=== PATIENT | female | born 1935 | race African-American/Black ===

== ENCOUNTER → 2017-09-29 | Outpatient (CLI) | payer MEDICARE, OTHER | END | disposition home or self-care (01) | LOC: ECHO 08:49 | DX: I08.3 Combined rheumatic disorders of mitral, aortic and tricuspid valves (principal); I27.20 Pulmonary hypertension, unspecified; I10 Essential (primary) hypertension; E78.00 Pure hypercholesterolemia, unspecified; Z87.891 Personal history of nicotine dependence | CPT/HCPCS: 93306 ==

== ENCOUNTER → 2018-03-13 | Outpatient (CLI) | payer MEDICARE, OTHER ==
[2015-10-14 17:07] VITALS: BP 159/80
[~2018-03-13] MED LIST: AMLO10TA8 PO; ATOR20TA58 PO; FEBU40TA PO; METO-269 PO; REGADENOSON 0.4 MG/5 ML DISP.SYRIN. IV ONE; TOLT4CAP PO; VALS320T2 PO; WARF4TAB68 PO
--- NOTE | 2018-03-13 12:29 | RAD ---
MR#: [id number] Date of Study: 03/13/2018 Ordering Physician: FALGUNI ZHAO, Referring Physician: DOE ARRINGTON Tech: FRANK Palomo APPROVED REPORT Test Type: Pharmacological Stress Nurse/Tech: Urvashi Blackmon R.N. Test Indications: MILLER Cardiac History: htn, afib, Medications: see ehr, coumadin Medical History: see ehr Resting ECG: afib ST depression in mult leads with flipped TS Resting Heart Rate: 65 bpm Resting Blood Pressure: 149/85mmHg Pretest Chest Pain: No chest pain Nurse/Tech Notes lungs cta, heart tones irregular Consent: The procedure was explained to the patient in lay terms. Informed consent was witnessed. Munir eout was entered into [employer]. History and Stress Test performed by SCOTT Coleman, GEORGE (R) (N) Pharm. Details Pharmacologic stress testing was performed using 0.4mg per 5ml of regadenoson given intravenously ove r 7-10 seconds. Stress Symptoms No chest pain or symptoms. POST EXERCISE Reason for Termination: Infusion complete Target HR: No Max HR: 104 bpm Max Blood Pressure: 137/71mmHg Chest Pain: No. Arrhythmia: No. ST Change: No. INTERPRETATION Stress EKG Conclusion: Baseline EKG showed atrial fibrillation with inferolateral ST depressions and T wave inversions. Non diagnostic changes at peak stress. Imaging Protocol IMAGE PROTOCOL: Rest Tc-99m/stress Tc-99m 1 day Rest: Stress: Viability: Radiopharm.Tc99m FmszfmdsyIh41w Sestamibi Dose11.9mCi 33.3mCi Duration 15min. 13min. Img Date 03/13/2018 03/13/2018 Inj-Img [id number]. 60min. Rest Admin Site:IV - Right WristAdministrator:FRANK Palomo Stress Admin Site: IV - Right WristAdministrator: SCOTT Coleman, TERRIET (R)(N) STRESS DATA End Diast. Vol.75.0mlLVEDV index BSA38.0ml End Syst. Vol.22.0mlLVESV index BSA11.0ml Myocardial Pzht841.0gEject. Rukkyctd56.0% Stress Scores Regional WT2.00Summed WT12.00 Regional WM0.00Summed WM0.00 LV Perfusion Stress scintigraphic images technically difficult due to motion artifact but there appeared to be no significant fixed or reversible defects. Wall Motion Normal left ventricular systolic function with ejection fraction calculated at 58%. LV Perf. Quant 17 Seg. SSS8.00 17 Seg. SRS0.00 17 Seg. SDS8.00 Stress Defect Extent (% LAD)3.80Rest Defect Extent (% LAD)0.00Rev. Defect Extent (% LAD)3.80 Stress Defect Extent (% LCX) 47.50Rest Defect Extent (% LCX)11.30Rev. Defect Extent (% LCX)45.00 Stress Defect Extent (% RCA)3.30Rest Defect Extent (% RCA)0.00Rev. Defect Extent (% RCA)1.10 Stress Defect Extent (% CAMILO)17.20Rest Defect Extent (% CAMILO)2.00Rev. Defect Extent (% CAMILO)15.20 Conclusion 1. Regadenoson cardioisotope stress test was technically difficult due to motion artifact but did not show any obvious evidence of ischemia or infarct. 2. Normal left ventricular systolic function with ejection fraction calculated at 58%. 3. Low risk for cardiac events. Signed by : Falguni Zhao, Electronically Approved : 03/13/2018 12:27:45
--- NOTE | 2018-03-14 11:57 | RAD ---
MR#: [id number] Date of Study: 03/13/2018 Ordering Physician: FALGUNI ZHAO, Referring Physician: FALGUNI ZHAO, Tech: Dawit Yang MBA, RDMS, RVT, RDCS, RTR APPROVED REPORT Patient Location : OUT-PATIENT Indications Lower Extremity Edema : Bilateral Findings Grayscale images of the bilateral saphenofemoral junctions and limited evaluation of the greater and lesser saphenous veins does not reveal any obvious evidence of thrombus. The right great saphenous vein measures 4.6 mm and does not show any evidence of reflux. The left gre at saphenous vein measures 5.3 mm and does not show any evidence of reflux. The bilateral lesser saphenous veins do not show any obvious evidence of reflux. Critical Notification Critical Value: No <Conclusion> 1. No reflux noted in the greater or lesser saphenous veins. Signed by : Eric Adam, Electronically Approved : 03/14/2018 11:56:01
== END | disposition home or self-care (01) ==
LOC: NM 08:11
PROVIDERS: ATTEND Internal Medicine Cardiovascular Disease
DX: I48.91 Unspecified atrial fibrillation (principal); R60.0 Localized edema; I10 Essential (primary) hypertension; Z79.01 Long term (current) use of anticoagulants; Z87.891 Personal history of nicotine dependence
CPT/HCPCS: 78452; 93017; 93970; 96374; J2785

== ENCOUNTER 2018-12-16 08:44 | Inpatient (IN) | payer MEDICARE, OTHER ==
[~2018-12-16] VITALS: Ht 162.6 cm; Wt 105.0 kg
[~2018-12-16 08:44] MED LIST changes: -REGADENOSON 0.4 MG/5 ML DISP.SYRIN. IV ONE
[2018-12-16] MEDS ORDERED: ONDANSETRON PF 4 MG/2 ML VIAL. IM ONE (09:30)
[2018-12-16 09:44] LABS: BASO % 1 % (0-3); EOS % 1 % (0-3); HEMATOCRIT 39.2 % (36.0-47.0); HEMOGLOBIN 12.9 g/dL (12.0-15.5); LYMPH # 1.1 x10^3/uL (1.0-4.8); LYMPH % 25 % (24-48); MEAN CORPUSCULAR HEMOGLOBIN 31 pg (25-35); MEAN CORPUSCULAR HGB CONC 33 g/dL (31-37); MEAN CORPUSCULAR VOLUME 93 fL (79-100); MONO # 0.3 x10^3/uL (0.0-1.1); MONO % 7 % (0-9); NEUT % 67 % (31-73); PLATELET COUNT 155 x10^3/uL (140-400); RED BLOOD COUNT 4.22 x10^6/uL (3.50-5.40); RED CELL DISTRIBUTION WIDTH 14.4 % (11.5-14.5); WHITE BLOOD COUNT 4.5 x10^3/uL (4.0-11.0)
[2018-12-16] MEDS ORDERED: fentaNYL PF VIAL 100 MCG/2 ML VIAL IVP ONE ×2 (09:45→15:15)
[2018-12-16 09:55] LABS: CALCIUM 9.9 mg/dL (8.5-10.1); CREATININE 1.7 mg/dL (0.6-1.0); GFR 34.9; POTASSIUM 3.6 mmol/L (3.5-5.1)
[2018-12-16 10:00] LABS: ALBUMIN 3.6 g/dL (3.4-5.0); ALBUMIN/GLOBULIN RATIO 0.7 (1.0-1.7); TOTAL BILIRUBIN 0.7 mg/dL (0.2-1.0); TOTAL PROTEIN 8.6 g/dL (6.4-8.2)
[2018-12-16] MEDS ORDERED: ONDANSETRON PF 4 MG/2 ML VIAL. IVP ONE (10:00)
[2018-12-16] MEDS ORDERED: IV NORMAL SALINE 1000ML BAG 1,000 ML IV ONE (10:15)
--- NOTE | 2018-12-16 10:41 | RAD ---
Exam performed: Right upper quadrant ultrasound. HISTORY: Abdominal pain. DATE OF SERVICE: 12/16/2018. COMPARISON: None available TECHNIQUE: Real-time grayscale imaging of the right upper abdomen is performed and images are obtained. FINDINGS: Study somewhat limited due to morbid obesity and bowel gas limiting evaluation. The evaluated portion of the liver appears normal. It measures 13.4 cm in length. Gallbladder appears grossly unremarkable. No large gallstones or pericholecystic fluid seen. Gallbladder wall measures 1.7 mm. The right kidney measures 10.85 x 4.89 x 3.73 cm. Suboptimal evaluation of the pancreas and IVC due to overlying bowel gas. No gross free fluid. IMPRESSION: Limited exam otherwise grossly normal. Electronically signed by: Ashley Dennison MD (12/16/2018 10:38 AM) [facility]
[2018-12-16] MEDS ORDERED: ONDA4TAB12 PO (12:15)
--- NOTE | 2018-12-16 12:15 | PHYS DOC ---
Past Medical History Past Medical History: Hypertension, Kidney Stone Additional Past Medical Histor: 3 MINI STROKES, LEFT KIDNEY REMOVED (KARYNA PAULINO APRN) Past Surgical History: No Surgical History (KARYNA PAULINO APRN) Alcohol Use: None Drug Use: None (KARYNA PAULINO APRN) Adult General Chief Complaint Chief Complaint: ABDOMINAL PAIN HPI HPI Patient is a 83 year old female who presents with nausea and vomiting. The patient states that she has epigastric pain. She states that she has been going to Dr. Crooks investigating the cause of her pain for over a year and he has not been able to find answers. The patient states that she feels like she has worsened. She states that she had a friend who came into the hospital and it was discovered that her pain was caused by her gallbladder. She thinks that she might have a bad gallbladder as well. She denies fever. She denies diarrhea or constipation. (KARYNA PAULINO APRN) Review of Systems Review of Systems Constitutional: Denies fever or chills [] Eyes: Denies change in visual acuity, redness, or eye pain [] HENT: Denies nasal congestion or sore throat [] Respiratory: Denies cough or shortness of breath [] Cardiovascular: No additional information not addressed in HPI [] GI: See history of present illness : Denies dysuria or hematuria [] Musculoskeletal: Denies back pain or joint pain [] Integument: Denies rash or skin lesions [] Neurologic: Denies headache, focal weakness or sensory changes [] Endocrine: Denies polyuria or polydipsia [] All other systems were reviewed and found to be within normal limits, except as documented in this note. (KARYNA PAULINO APRN) Current Medications Current Medications Current Medications Medications (Trade) Dose Ordered Sig/Nimco Start Time Stop Time Status Last Admin Dose Admin Fentanyl Citrate (Fentanyl 2ml Vial) 75 mcg 1X ONCE 12/16/18 09:45 12/16/18 09:46 DC 12/16/18 09:46 75 MCG Ondansetron HCl (Zofran) 4 mg 1X ONCE 12/16/18 10:00 12/16/18 10:01 DC 12/16/18 09:51 4 MG Sodium Chloride 1,000 ml @ 1,000 mls/hr 1X ONCE 12/16/18 10:15 12/16/18 11:14 DC 12/16/18 10:40 1,000 MLS/HR (KARYNA PAULINO CHAIN SAW OPERATOR) Allergies Allergies Allergies Coded Allergies Type Severity Reaction Last Updated Verified Iodine and Iodide Containing Produc Allergy Intermediate 07/21/15 Yes (KARYNA PAULINO CHAIN SAW OPERATOR) Physical Exam Physical Exam Constitutional: Well developed, well nourished, no acute distress, non-toxic appearance. [] Cardiovascular:Heart rate regular rhythm, no murmur [] Lungs & Thorax: Bilateral breath sounds clear to auscultation [] Abdomen: Bowel sounds normal, soft, mild epigastric tenderness, Groves's sign is negative, no masses, no pulsatile masses. [] Skin: Warm, dry, no erythema, no rash. [] Back: No tenderness, no CVA tenderness. [] Extremities: No tenderness, no cyanosis, no clubbing, ROM intact, no edema. [] Neurologic: Alert and oriented X 3, normal motor function, normal sensory function, no focal deficits noted. [] Psychologic: Affect normal, judgement normal, mood normal. [] (KARYNA PAULINO CHAIN SAW OPERATOR) Current Patient Data Vital Signs Vital Signs Date Time Temp Pulse Resp B/P (MAP) Pulse Ox O2 Delivery O2 Flow Rate FiO2 12/16/18 12:35 67 16 155/64 (94) 96 Room Air 12/16/18 08:57 98.2 98.2 Lab Values Laboratory Tests Test 12/16/18 09:30 White Blood Count 4.5 x10^3/uL (4.0-11.0) Red Blood Count 4.22 x10^6/uL (3.50-5.40) Hemoglobin 12.9 g/dL (12.0-15.5) Hematocrit 39.2 % (36.0-47.0) Mean Corpuscular Volume 93 fL (79-100) Mean Corpuscular Hemoglobin 31 pg (25-35) Mean Corpuscular Hemoglobin Concent 33 g/dL (31-37) Red Cell Distribution Width 14.4 % (11.5-14.5) Platelet Count 155 x10^3/uL (140-400) Neutrophils (%) (Auto) 67 % (31-73) Lymphocytes (%) (Auto) 25 % (24-48) Monocytes (%) (Auto) 7 % (0-9) Eosinophils (%) (Auto) 1 % (0-3) Basophils (%) (Auto) 1 % (0-3) Neutrophils # (Auto) 3.0 x10^3/uL (1.8-7.7) Lymphocytes # (Auto) 1.1 x10^3/uL (1.0-4.8) Monocytes # (Auto) 0.3 x10^3/uL (0.0-1.1) Eosinophils # (Auto) 0.0 x10^3/uL (0.0-0.7) Basophils # (Auto) 0.0 x10^3/uL (0.0-0.2) Sodium Level 141 mmol/L (136-145) Potassium Level 3.6 mmol/L (3.5-5.1) Chloride Level 105 mmol/L (98-107) Carbon Dioxide Level 28 mmol/L (21-32) Anion Gap 8 (6-14) Blood Urea Nitrogen 36 mg/dL (7-20) H Creatinine 1.7 mg/dL (0.6-1.0) H Estimated GFR (Cockcroft-Gault) 34.9 BUN/Creatinine Ratio 21 (6-20) H Glucose Level 122 mg/dL (70-99) H Calcium Level 9.9 mg/dL (8.5-10.1) Total Bilirubin 0.7 mg/dL (0.2-1.0) Aspartate Amino Transferase (AST) 27 U/L (15-37) Alanine Aminotransferase (ALT) 30 U/L (14-59) Alkaline Phosphatase 65 U/L (46-116) Total Protein 8.6 g/dL (6.4-8.2) H Albumin 3.6 g/dL (3.4-5.0) Albumin/Globulin Ratio 0.7 (1.0-1.7) L Lipase 77 U/L (73-393) Laboratory Tests 12/16/18 09:30 Laboratory Tests 12/16/18 09:30 (KARYNA PAULINO APRN) EKG EKG [] (KARYNA PAULINO APRN) Radiology/Procedures Radiology/Procedures [] (KARYNA PAULINO APRN) Course & Med Decision Making Course & Med Decision Making Pertinent Labs and Imaging studies reviewed. (See chart for details) []I was planning on discharging the patient home. Lory seemed to resolve her nausea, she did get fentanyl for pain. Her sons are in the room and they are insisting that she have a CT scan. They do not think the ultrasound is sensitive enough to fruit picker causes of abdominal pain. We did proceed with a CT scan and it does show that she might have a small bowel obstruction or ileus. They are very insistent that she be admitted as she lives at home alone. Dr. Crooks was consulted and he is willing to have the patient admitted to his service. (KARYNA PAULINO APRN) Course & Med Decision Making Staff Physician Addendum: I was working in the ER during the course of this patient's visit. I was available for consultation as needed, but I was not directly involved in the care of this patient. (FANG MARCANO MD) Dragon Disclaimer Dragon Disclaimer This electronic medical record was generated, in whole or in part, using a voice recognition dictation system. (KARYNA PAULINO APRN) Departure Departure Impression: Primary Impression: Nausea Additional Impressions: Epigastric pain Small bowel obstruction Disposition: ADMITTED INPATIENT Condition: STABLE Referrals: LAURA CROOKS MD (PCP) Problem Qualifiers KARYNA PAULINO APRN Dec 16, 2018 12:15 FANG MARCANO MD Dec 17, 2018 16:20
--- NOTE | 2018-12-16 13:39 | RAD ---
Exam performed: CT abdomen and pelvis with contrast HISTORY: Right upper quadrant pain. DATE OF SERVICE: 12/16/2018. COMPARISON: CT abdomen and pelvis from December 21, 2011. TECHNIQUE: Contiguous helical acquisitions are obtained through the abdomen and pelvis without IV contrast. Sagittal and coronal reformatted images are obtained and reviewed. FINDINGS: Pleural-based right anterior and left posterior lung base opacities likely atelectasis or scarring. Heart size is grossly unremarkable. Unopacified liver, spleen, gallbladder and pancreas are normal. Both adrenal glands and right kidney appears normal. Left kidney is not seen and is absent either surgically or congenitally. Mild dilation of small bowel loops seen in the central abdomen without definite transition. No inflammatory changes are seen. Small ventral abdominal wall hernia containing omental fat There is scattered stool in the colon. The urinary bladder is decompressed. Uterus is either atrophic or surgically absent. IMPRESSION: Mild dilation of small bowel loops in the central abdomen without a definite transition. Findings may be related to mild ileus pattern or partial small bowel obstruction. Correlate clinically. Close clinical and radiographic follow-up recommended. Scattered stool throughout the colon likely constipation. PQRS Compliance Statement: One or more of the following individualized dose reduction techniques were utilized for this examination: 1. Automated exposure control 2. Adjustment of the mA and/or kV according to patient size 3. Use of iterative reconstruction technique Electronically signed by: Ashley Dennison MD (12/16/2018 1:36 PM) [facility]
[2018-12-16] MEDS ORDERED: cloNIDine HCL 0.1 MG TABLET PO ONE (14:15)
[2018-12-16 14:51] LABS: PROTHROMBIN TIME PATIENT 17.3 SEC (11.7-14.0)
[2018-12-16] MEDS ORDERED: IV NORMAL SALINE 1000ML BAG 1,000 ML IV SCH (15:10)
[2018-12-16] MEDS ORDERED: ONDANSETRON PF 4 MG/2 ML VIAL. IV PRN (15:15)
[2018-12-16] MEDS ORDERED: ACETAMINOPHEN 325 MG TABLET. PO PRN (15:15)
[2018-12-16 15:53] VITALS: BP 185/94
[2018-12-16] MEDS ORDERED: MULT-246 PO (16:45)
[2018-12-16 19:00] VITALS: BP 162/84
[2018-12-16] MEDS ORDERED: LOSA100T14 PO (21:17)
[2018-12-16 23:00] VITALS: BP 185/75
[2018-12-16] MEDS: POTASSIUM CL 20MEQ D5-0.45NACL 1,000 ML IV SCH (23:26)
[2018-12-16] MEDS: ONDANSETRON PF 4 MG/2 ML VIAL. IVP PRN (23:27)
[2018-12-16] MEDS: fentaNYL PF VIAL 100 MCG/2 ML VIAL IV PRN (23:27)
[2018-12-17] VITALS (7 sets, daily range): BP systolic 81–167; BP diastolic 58–94
[2018-12-17] MEDS: hydrALAZINE 20 MG/ML VIAL. IVP PRN (01:07)
[2018-12-17] MEDS: ONDANSETRON PF 4 MG/2 ML VIAL. IVP PRN ×2 (07:28→17:40)
[2018-12-17] MEDS: fentaNYL PF VIAL 100 MCG/2 ML VIAL IV PRN (07:28)
[2018-12-17] MEDS ORDERED: ACETAMINOPHEN 650 MG SUPP.RECT. PR PRN (10:00)
--- NOTE | 2018-12-17 10:22 | PDOC ---
Provider Note Provider Note history and physical dictated # [id number] LAURA CROOKS MD Dec 17, 2018 10:22
--- NOTE | 2018-12-17 10:59 | HP ---
ADMIT DATE: 12/16/2018 LOCATION: She is in room 434. HISTORY OF PRESENT ILLNESS: The patient is an 83-year-old morbidly obese female with a history of chronic atrial fibrillation, on Coumadin, who has hypertension, hyperlipidemia, chronic gout, history of a left nephrectomy for kidney stone disease and has chronic kidney disease stage 3, who noted an onset of epigastric abdominal pain, some back pain, nausea, and vomiting. Her last bowel movement was on Tuesday and because of the pain, nausea, and vomiting, she sought help at the [facility] Emergency Room where she had an ultrasound of the abdomen, which showed no gallstones. She also had a CAT scan of the abdomen and pelvis done, which showed some dilatation of the small bowel loops without a transitional zone. It was thought to be related either to a mild ileus or a partial small-bowel obstruction. The patient continues to have intermittent epigastric pain and some nausea and vomiting. She denies any other family members to her knowledge that she has been exposed to have had nausea or vomiting. She denies any blood in the stool or any fever. She was subsequently admitted to the hospital for further evaluation of the aforementioned symptoms. ALLERGIES AND INTOLERANCES: IODINE AND IODINE-CONTAINING PRODUCTS, BUT SHE HAS HAD PROBLEMS WITH TRAMADOL CAUSING NAUSEA AND ALLOPURINOL CAUSED A RASH. MEDICATIONS: Include amlodipine 10 mg every day, Detrol LA 4 mg every day, atorvastatin 20 mg every day, losartan 100 mg every day, metoprolol succinate 25 mg every day, Uloric 40 mg every day, and Coumadin 3.5 mg every day. PAST MEDICAL HISTORY: Significant for chronic atrial fibrillation, hypertension, hyperlipidemia, gout, overactive bladder, osteoarthritis, and morbid obesity. She had a left nephrectomy for kidney stone disease, total abdominal hysterectomy, bilateral salpingo-oophorectomy, and a tonsillectomy. She also has chronic kidney disease stage 3 and a serum creatinine was 1.4 on 11/22/2018. Her last echocardiogram was done in 09/2017 which showed moderate aortic regurgitation, moderate mitral regurgitation, moderate tricuspid regurgitation, and moderate pulmonary hypertension with a left ventricular ejection fraction of 70%. SOCIAL HISTORY: She does not drink alcohol nor does she smoke cigarettes. She lives alone. FAMILY HISTORY: Not contributory. REVIEW OF SYSTEMS: GENERAL: She denies any fever, chills, or sweats. CARDIOVASCULAR: No chest pain. PULMONARY: No cough or shortness of breath. GASTROINTESTINAL: She had an epigastric upper abdominal pain, nausea, and vomiting. ENDOCRINE: No diabetes mellitus. SKIN: No rashes. The rest of the review of systems is negative except as stated in history of present illness. PHYSICAL EXAMINATION: VITAL SIGNS: Temperature is 99 degrees, pulse 72, respiratory rate 16, blood pressure was 156/64, this was 81/58 this morning when she was sitting up in a chair and she was not lightheaded, that needs to be rechecked. Oxygen saturation is 98% on room air. HEENT: Eyes: Gaze is conjugate. Extraocular muscles are intact. Mouth: Tongue is midline. No yeast. NECK: No cervical lymphadenopathy or thyroid enlargement. HEART: Reveals an S1, S2. There is no S3 or murmur. LUNGS: Clear. ABDOMEN: Soft, obese. Bowel sounds positive. She has some epigastric tenderness, but no guarding. She does have some right upper quadrant and left upper quadrant tenderness, but much less so than the epigastric. She was examined somewhat upright on a recliner. EXTREMITIES: Lower extremities without edema. SKIN: No rashes. NEUROLOGICAL: Coherent with no focal weakness of arms or legs or facial asymmetry. LABORATORY DATA: White count 4.5, hemoglobin 12.9 with a platelet count 155,000, 67 polys, and 25 lymphocytes. She had an INR done yesterday, it was 1.4. Sodium 141, potassium 3.6, chloride 105, total CO2 was 28, BUN 36, creatinine of 1.7. The blood sugar was 122. Liver function tests normal, albumin 3.6, and lipase was 77. Then, she had the ultrasound of the abdomen, which was normal. Gallbladder was unremarkable. Then, she had the CAT scan of the abdomen and pelvis done, actually this was done with contrast. She had mild dilatation of the small bowel loops without a definite transition. She had a left nephrectomy as mentioned. The spleen, gallbladder, and pancreas looked normal. ASSESSMENT: 1. Suspect partial small-bowel obstruction. 2. Acute kidney injury on top of chronic kidney disease stage 3. 3. Hypertension. 4. Hyperlipidemia. 5. Chronic atrial fibrillation, on Coumadin, but Coumadin is on hold currently, she is n.p.o. 6. Chronic gout. 7. History of a left nephrectomy. PLAN: At this time is to consult Dr. Alejandro Rojas. Also, consult Dr. Cowan from Cardiology. Obtain an echocardiogram. Keep her n.p.o. The nurses have been trying to place an NG tube, if not I have brought an order for the radiologist to put it in. We will put the continue NG tube to continuous suction. Ordered an acute abdominal series for today and a KUB can be done after the NG tube is placed. We will repeat her labs tomorrow. I spoke to the pharmacist for atrial fibrillation. We will put her on some Lovenox 1 mg/kg subcutaneously every 12 hours and the pharmacist will adjust it for her renal function with a serum creatinine of 1.7. We will hold the Coumadin and other oral medications. Hydralazine has been ordered p.r.n. IV for systolic blood pressure of 160 or higher and I will have the staff nurse to recheck the blood pressure as it was low. IV fluids have been ordered, Zofran IV has been ordered, Fentanyl also has been ordered IV every 4 hours p.r.n., and rectal Tylenol was also ordered p.r.n. I also ordered an EKG and an urinalysis. We will hold the Coumadin as she is n.p.o. also. LAURA CROOKS MD DR: TRACY/angus JOB#: [id number] / [id number]
--- NOTE | 2018-12-17 11:42 | PDOC2 ---
CARDIOLOGY CONSULT NOTE CHEIF COMPLAINT: Abdominal pain HPI: 83-year-old woman coming into the hospital in the setting of abdominal pain which has been chronic in nature. She reports that she's had some progressive epigastric abdominal pain and back pain resulting in poor appetite over the course of last 2-3 days. Initial evaluation the ER revealed possible ileus and she's been admitted for further evaluation and treatment. Cardiology has been asked to evaluate her due to her chronic history of atrial fibrillation. She normally sees Dr. Cowan and and a most recent visit she was in her stable condition and no further testing was recommended. Currently she denies any anginal symptoms but does have some exertional dyspnea. She denies any syncope or palpitations. No orthopnea or PND. PMHX: 1. Moderate valvular insufficiency 2. CKD with nephrectomy 3. Chronic persistent afib on coumadin 4. HTN SOCHX: No alcohol, tobacco or illicit drug use FAMHX: Noncontributory CURRENT MEDS: Home cardiovascular medications included atorvastatin, warfarin, amlodipine, metoprolol and losartan. ALLERGIES: Allergies Coded Allergies Type Severity Reaction Last Updated Verified Iodine and Iodide Containing Produc Allergy Intermediate 07/21/15 Yes ROS: Negative unless otherwise mentioned above in history of present illness PHYSICAL EXAM: Vital Signs/I&O: Vital Signs Date Time Temp Pulse Resp B/P (MAP) Pulse Ox O2 Delivery O2 Flow Rate FiO2 12/17/18 07:28 Room Air 12/17/18 07:00 99.0 72 16 81/58 (66) 98 99.0 I & O 12/16/18 12/16/18 12/17/18 15:00 23:00 07:00 Intake Total 1000 ml 0 ml Output Total 200 ml Balance 1000 ml -200 ml Physical Exam: GEN.: Mild distress from GI pain.. Alert and oriented. HEENT: Head is normocephalic, atraumatic NECK: Supple. LUNGS: Clear to auscultation. HEART: Irregularly irregular S1, S2 present. soft moderate mitral and aortic insufficiency murmur is noted ABDOMEN: Mild diffuse abdominal tenderness. Diminished bowel sounds. EXTREMITIES: No edema. 1+ radial and pedal pulses. NEUROLOGIC: Normal speech, normal tone PSYCHIATRIC: Normal affect, normal mood. SKIN: No ulcerations DIAGNOSTIC TESTING: EKG is currently pending Stress test performed in February 2018 revealed normal LV function and no evidence of ischemia Echocardiogram in 2018 revealed moderate aortic and mitral insufficiency with normal ejection fraction. Labs reviewed ASSESSMENT: 1. Chronic atrial fibrillation currently rate controlled 2. Hypertension 3. Mild to moderate valvular insufficiency without any evidence of acute decompensation 4. Probable ileus based on imaging study and presentation. PLAN: 1. From a cardiac perspective no further testing is necessary. If she is unable to tolerate oral medications we would use metoprolol 5 mg IV push every 4 hours as needed to maintain a heart rate less than 110. 2. No acute indication for bridging but will defer to her primary care physician Dr. Cedeno. Supportive care from a cardiac standpoint. Thank you for this consultation. Please call with any questions. LAUREN CHIU MD Dec 17, 2018 11:42
[2018-12-17] MEDS ORDERED: INSULIN LISPRO 300 UNITS/3 ML VIAL. SQ SCH (12:00)
--- NOTE | 2018-12-17 12:24 | EKG ---
[facility] [address] [place] [address] Test Date: 2018-12-17 Test Time: 13:14:24 Pat Name: LEYDI TRUJILLO Department: Room: 434 1 Gender: F Powder Hand: MARLEE : 1935 Requested By: LAURA CROOKS Order Number: [id number] Reading MD: Eric Adam MD Measurements Intervals [place] Rate: 91 P: ND: QRS: 24 QRSD: 84 T: 176 QT: 350 QTc: 432 Interpretive Statements ATRIAL FIBRILLATION NON-SPECIFIC ST/T CHANGES Electronically Signed On 12-26-2018 14:18:51 CDT by Eric Adam MD
[2018-12-17 12:43] LABS: PROTHROMBIN TIME PATIENT 17.4 SEC (11.7-14.0)
[2018-12-17] MEDS: POTASSIUM CL 20MEQ D5-0.45NACL 1,000 ML IV SCH (12:48)
[2018-12-17 12:49] LABS: ALBUMIN 3.7 g/dL (3.4-5.0); ALBUMIN/GLOBULIN RATIO 0.8 (1.0-1.7); CALCIUM 9.1 mg/dL (8.5-10.1); CREATININE 2.2 mg/dL (0.6-1.0); GFR 25.9; POTASSIUM 4.2 mmol/L (3.5-5.1); TOTAL BILIRUBIN 1.1 mg/dL (0.2-1.0); TOTAL PROTEIN 8.5 g/dL (6.4-8.2)
[2018-12-17] MEDS: PANTOPRAZOLE IV PUSH 40 MG VIAL. IVP SCH (12:49)
--- NOTE | 2018-12-17 13:30 | NUR ---
Patient transferred to room 209 to be placed on a stemhole borer and topper. Report given to 2nd floor nurse. Still unsuccessful in reaching radiologist to place NG tube. Three attempts to place NG tube by 2 nurses were unsuccessful. N/V continues. Dr Rojas called for pt report and pt has been seen by cardiology.
--- NOTE | 2018-12-17 15:23 | RAD ---
Acute Abdominal Series: Technique: PA view of the chest and supine and upright views of the abdomen were obtained. History: Small bowel dilation. Comparison: None. Findings: The heart is moderately enlarged. There is NG tube coiled in the esophagus. There is blunting of left costophrenic angle. The pulmonary vessels appear normal. There is air and stool scattered throughout the colon. There is air within a few dilated loops of small bowel. There is no free air. Impression: 1. Moderate cardiomegaly. 2. Mild left effusion. 3. NG tube well-positioned. It may be helpful to advance the NG tube by 8 cm. Performed. Abnormal bowel gas pattern suggesting constipation and possible partial small bowel obstruction. Electronically signed by: Anjel Terry III, MD (12/17/2018 3:20 PM) [facility]
--- NOTE | 2018-12-17 16:16 | PDOC ---
SURGICAL PROGRESS NOTE Subjective consult dictated. Now with history of abd pain and no flatus since 2-3 days. NG down and less pin now. abd soft with no evidence of peritoneal signs. Will likely need surg if not relieved. Will repeat x-ry in AM. No acute abd at this time. Vital Signs Vital Signs Date Time Temp Pulse Resp B/P (MAP) Pulse Ox O2 Delivery O2 Flow Rate FiO2 12/17/18 13:30 98.4 95 16 150/80 (103) 94 Room Air 98.4 I&O Intake and Output 12/17/18 07:00 Intake Total 1000 ml Output Total 200 ml Balance 800 ml Intake Oral 0 ml IV Total 1000 ml Output Emesis 200 ml # Voids 3 Labs Laboratory Tests Test 12/16/18 09:30 12/17/18 12:32 White Blood Count 4.5 x10^3/uL (4.0-11.0) Red Blood Count 4.22 x10^6/uL (3.50-5.40) Hemoglobin 12.9 g/dL (12.0-15.5) Hematocrit 39.2 % (36.0-47.0) Mean Corpuscular Volume 93 fL (79-100) Mean Corpuscular Hemoglobin 31 pg (25-35) Mean Corpuscular Hemoglobin Concent 33 g/dL (31-37) Red Cell Distribution Width 14.4 % (11.5-14.5) Platelet Count 155 x10^3/uL (140-400) Neutrophils (%) (Auto) 67 % (31-73) Lymphocytes (%) (Auto) 25 % (24-48) Monocytes (%) (Auto) 7 % (0-9) Eosinophils (%) (Auto) 1 % (0-3) Basophils (%) (Auto) 1 % (0-3) Neutrophils # (Auto) 3.0 x10^3/uL (1.8-7.7) Lymphocytes # (Auto) 1.1 x10^3/uL (1.0-4.8) Monocytes # (Auto) 0.3 x10^3/uL (0.0-1.1) Eosinophils # (Auto) 0.0 x10^3/uL (0.0-0.7) Basophils # (Auto) 0.0 x10^3/uL (0.0-0.2) Prothrombin Time 17.3 SEC (11.7-14.0) 17.4 SEC (11.7-14.0) Prothromb Time International Ratio 1.4 (0.8-1.1) 1.5 (0.8-1.1) Sodium Level 141 mmol/L (136-145) 141 mmol/L (136-145) Potassium Level 3.6 mmol/L (3.5-5.1) 4.2 mmol/L (3.5-5.1) Chloride Level 105 mmol/L (98-107) 103 mmol/L (98-107) Carbon Dioxide Level 28 mmol/L (21-32) 23 mmol/L (21-32) Anion Gap 8 (6-14) 15 (6-14) Blood Urea Nitrogen 36 mg/dL (7-20) 37 mg/dL (7-20) Creatinine 1.7 mg/dL (0.6-1.0) 2.2 mg/dL (0.6-1.0) Estimated GFR (Cockcroft-Gault) 34.9 25.9 BUN/Creatinine Ratio 21 (6-20) 17 (6-20) Glucose Level 122 mg/dL (70-99) 145 mg/dL (70-99) Calcium Level 9.9 mg/dL (8.5-10.1) 9.1 mg/dL (8.5-10.1) Total Bilirubin 0.7 mg/dL (0.2-1.0) 1.1 mg/dL (0.2-1.0) Aspartate Amino Transf (AST/SGOT) 27 U/L (15-37) 25 U/L (15-37) Alanine Aminotransferase (ALT/SGPT) 30 U/L (14-59) 27 U/L (14-59) Alkaline Phosphatase 65 U/L (46-116) 65 U/L (46-116) Total Protein 8.6 g/dL (6.4-8.2) 8.5 g/dL (6.4-8.2) Albumin 3.6 g/dL (3.4-5.0) 3.7 g/dL (3.4-5.0) Albumin/Globulin Ratio 0.7 (1.0-1.7) 0.8 (1.0-1.7) Lipase 77 U/L (73-393) Laboratory Tests Test 12/17/18 12:32 Prothrombin Time 17.4 SEC (11.7-14.0) Prothromb Time International Ratio 1.5 (0.8-1.1) Sodium Level 141 mmol/L (136-145) Potassium Level 4.2 mmol/L (3.5-5.1) Chloride Level 103 mmol/L (98-107) Carbon Dioxide Level 23 mmol/L (21-32) Anion Gap 15 (6-14) Blood Urea Nitrogen 37 mg/dL (7-20) Creatinine 2.2 mg/dL (0.6-1.0) Estimated GFR (Cockcroft-Gault) 25.9 BUN/Creatinine Ratio 17 (6-20) Glucose Level 145 mg/dL (70-99) Calcium Level 9.1 mg/dL (8.5-10.1) Total Bilirubin 1.1 mg/dL (0.2-1.0) Aspartate Amino Transf (AST/SGOT) 25 U/L (15-37) Alanine Aminotransferase (ALT/SGPT) 27 U/L (14-59) Alkaline Phosphatase 65 U/L (46-116) Total Protein 8.5 g/dL (6.4-8.2) Albumin 3.7 g/dL (3.4-5.0) Albumin/Globulin Ratio 0.8 (1.0-1.7) Problem List Problems Medical Problems: (1) Epigastric pain Status: Acute (2) Epigastric pain Status: Acute (3) Nausea Status: Acute (4) Nausea Status: Acute (5) Small bowel obstruction Status: Acute JASMYN MYERS MD Dec 17, 2018 16:16
[2018-12-17] MEDS: fentaNYL PF VIAL 100 MCG/2 ML VIAL IVP PRN (17:40)
--- NOTE | 2018-12-17 17:54 | NUR ---
Acute abdominal series shows s/p NG tube placement picture as coiled in esophagus. Dr Rojas assessed patient and scan and advised to keep NG in place as is. Advised he will reorder scan in AM to see if there is improvement in SBO and decide from that point how to proceed with POC. Will continue to monitor
--- NOTE | 2018-12-18 00:07 | CONS ---
DATE OF CONSULTATION: SURGICAL CONSULTATION I am asked to see this patient because of abdominal pain. Apparently, she has had pain for about 3-4 days prior to admission, got worse on Tuesday and came to the Emergency Room, was found to have per CT scan, a possible small bowel obstruction, partial. I spoke to the radiologist and she does have air in the colon and it is an unusual finding, but may be a partial small bowel obstruction. Clinically, she has had abdominal pain. When I saw her, she had an NG tube down, had much less pain, distention and stated that she did not have any pain at all when I saw her. She had not had flatus however. The physical examination shows abdomen to be soft. There was no guarding, rebound or localized tenderness and she did not have tenderness that she knew of. She does give a history of having a hysterectomy many years ago, but no other abdominal surgery. She has only vomited and some of the bilious material was vomited and it was green in nature. There is no evidence of infection as her white count is normal. She does not have a fever and the bilirubin was 1.1 on repeat and that it was normal before. She may well have a small bowel obstruction which may need surgery, but I think with NG suction, we will see how this goes. Sometimes it may relieve itself and we will repeat the x-rays in the morning including lab tests. At this point, we will follow. No surgery at this point, but it may be needed in the near future. DIAGNOSIS: Possible small bowel obstruction, most likely due to adhesions. JASMYN MYERS MD DR: DI/angus JOB#: [id number] / [id number]
[2018-12-18] MEDS: hydrALAZINE 20 MG/ML VIAL. IVP PRN ×2 (01:27→15:08)
[2018-12-18] MEDS: POTASSIUM CL 20MEQ D5-0.45NACL 1,000 ML IV SCH (01:27)
[2018-12-18 03:22] VITALS: BP 104/77
[2018-12-18 03:50] LABS: BILIRUBIN,URINE SMALL (NEG); CLARITY,URINE CLOUDY; COLOR,URINE AMBER; NITRITE,URINE NEGATIVE (NEG); PROTEIN,URINE 100 mg/dL (NEG-TRACE)
[2018-12-18 03:54] LABS: BACTERIA,URINE MOD /HPF (0-FEW); RBC,URINE 0 /HPF (0-2); SQUAMOUS EPITHELIAL CELL,UR MANY /LPF
[2018-12-18 03:55] LABS: AMORPHOUS SEDIMENT,UR PRESENT /HPF; GRANULAR CASTS,URINE FEW /HPF; HYALINE CASTS, URINE MANY /HPF
[2018-12-18 07:00] VITALS: BP 152/70
[2018-12-18 09:29] LABS: BASO % 0 % (0-3); EOS % 0 % (0-3); HEMATOCRIT 40.6 % (36.0-47.0); HEMOGLOBIN 13.4 g/dL (12.0-15.5); LYMPH % 8 % (24-48); MEAN CORPUSCULAR HEMOGLOBIN 31 pg (25-35); MEAN CORPUSCULAR HGB CONC 33 g/dL (31-37); MEAN CORPUSCULAR VOLUME 94 fL (79-100); MONO # 0.8 x10^3/uL (0.0-1.1); MONO % 7 % (0-9); NEUT # 10.5 x10^3/uL (1.8-7.7); NEUT % 85 % (31-73); PLATELET COUNT 167 x10^3/uL (140-400); RED BLOOD COUNT 4.35 x10^6/uL (3.50-5.40); RED CELL DISTRIBUTION WIDTH 14.5 % (11.5-14.5); WHITE BLOOD COUNT 12.4 x10^3/uL (4.0-11.0)
--- NOTE | 2018-12-18 09:57 | PDOC ---
SURGICAL PROGRESS NOTE Subjective Clinically abou the same. Still with some minimal abd pain but she sttes it is not bd at all. Will try to advance diet and reduce bend in NG> X-ray still shows SBO and will paln surgery for AM and chect INR etc. Still no acute abd findings. Vital Signs Vital Signs Date Time Temp Pulse Resp B/P (MAP) Pulse Ox O2 Delivery O2 Flow Rate FiO2 12/18/18 07:00 99.3 95 16 152/70 (97) 92 Room Air 99.3 I&O Intake and Output 12/18/18 07:00 Intake Total 0 ml Output Total 550 ml Balance -550 ml Intake Oral 0 ml Output Urine Total 100 ml Gastric Drainage Total 450 ml Labs Laboratory Tests Test 12/17/18 12:32 12/17/18 18:24 12/18/18 00:12 12/18/18 03:30 Prothrombin Time 17.4 SEC (11.7-14.0) Prothromb Time International Ratio 1.5 (0.8-1.1) Sodium Level 141 mmol/L (136-145) Potassium Level 4.2 mmol/L (3.5-5.1) Chloride Level 103 mmol/L (98-107) Carbon Dioxide Level 23 mmol/L (21-32) Anion Gap 15 (6-14) Blood Urea Nitrogen 37 mg/dL (7-20) Creatinine 2.2 mg/dL (0.6-1.0) Estimated GFR (Cockcroft-Gault) 25.9 BUN/Creatinine Ratio 17 (6-20) Glucose Level 145 mg/dL (70-99) Calcium Level 9.1 mg/dL (8.5-10.1) Total Bilirubin 1.1 mg/dL (0.2-1.0) Aspartate Amino Transf (AST/SGOT) 25 U/L (15-37) Alanine Aminotransferase (ALT/SGPT) 27 U/L (14-59) Alkaline Phosphatase 65 U/L (46-116) Total Protein 8.5 g/dL (6.4-8.2) Albumin 3.7 g/dL (3.4-5.0) Albumin/Globulin Ratio 0.8 (1.0-1.7) Glucose (Fingerstick) 134 mg/dL (70-99) 128 mg/dL (70-99) Urine Collection Type Unknown Urine Color Jessica Urine Clarity Cloudy Urine pH 5.0 Urine Specific [place] 1.020 Urine Protein 100 mg/dL (NEG-TRACE) Urine Glucose (UA) Negative mg/dL (NEG) Urine Ketones (Stick) Negative mg/dL (NEG) Urine Blood Negative (NEG) Urine Nitrite Negative (NEG) Urine Bilirubin Small (NEG) Urine Urobilinogen Dipstick 1.0 mg/dL (0.2 mg/dL) Urine Leukocyte Esterase Small (NEG) Urine RBC 0 /HPF (0-2) Urine WBC 5-10 /HPF (0-4) Urine Squamous Epithelial Cells Many /LPF Urine Amorphous Sediment Present /HPF Urine Bacteria Mod /HPF (0-FEW) Urine Hyaline Casts Many /HPF Urine Granular Casts Few /HPF Urine Mucus Marked /LPF Test 12/18/18 08:00 White Blood Count 12.4 x10^3/uL (4.0-11.0) Red Blood Count 4.35 x10^6/uL (3.50-5.40) Hemoglobin 13.4 g/dL (12.0-15.5) Hematocrit 40.6 % (36.0-47.0) Mean Corpuscular Volume 94 fL (79-100) Mean Corpuscular Hemoglobin 31 pg (25-35) Mean Corpuscular Hemoglobin Concent 33 g/dL (31-37) Red Cell Distribution Width 14.5 % (11.5-14.5) Platelet Count 167 x10^3/uL (140-400) Neutrophils (%) (Auto) 85 % (31-73) Lymphocytes (%) (Auto) 8 % (24-48) Monocytes (%) (Auto) 7 % (0-9) Eosinophils (%) (Auto) 0 % (0-3) Basophils (%) (Auto) 0 % (0-3) Neutrophils # (Auto) 10.5 x10^3/uL (1.8-7.7) Lymphocytes # (Auto) 1.0 x10^3/uL (1.0-4.8) Monocytes # (Auto) 0.8 x10^3/uL (0.0-1.1) Eosinophils # (Auto) 0.0 x10^3/uL (0.0-0.7) Basophils # (Auto) 0.0 x10^3/uL (0.0-0.2) Laboratory Tests Test 12/17/18 12:32 12/17/18 18:24 12/18/18 00:12 12/18/18 03:30 Prothrombin Time 17.4 SEC (11.7-14.0) Prothromb Time International Ratio 1.5 (0.8-1.1) Sodium Level 141 mmol/L (136-145) Potassium Level 4.2 mmol/L (3.5-5.1) Chloride Level 103 mmol/L (98-107) Carbon Dioxide Level 23 mmol/L (21-32) Anion Gap 15 (6-14) Blood Urea Nitrogen 37 mg/dL (7-20) Creatinine 2.2 mg/dL (0.6-1.0) Estimated GFR (Cockcroft-Gault) 25.9 BUN/Creatinine Ratio 17 (6-20) Glucose Level 145 mg/dL (70-99) Calcium Level 9.1 mg/dL (8.5-10.1) Total Bilirubin 1.1 mg/dL (0.2-1.0) Aspartate Amino Transf (AST/SGOT) 25 U/L (15-37) Alanine Aminotransferase (ALT/SGPT) 27 U/L (14-59) Alkaline Phosphatase 65 U/L (46-116) Total Protein 8.5 g/dL (6.4-8.2) Albumin 3.7 g/dL (3.4-5.0) Albumin/Globulin Ratio 0.8 (1.0-1.7) Glucose (Fingerstick) 134 mg/dL (70-99) 128 mg/dL (70-99) Urine Collection Type Unknown Urine Color Jessica Urine Clarity Cloudy Urine pH 5.0 Urine Specific [place] 1.020 Urine Protein 100 mg/dL (NEG-TRACE) Urine Glucose (UA) Negative mg/dL (NEG) Urine Ketones (Stick) Negative mg/dL (NEG) Urine Blood Negative (NEG) Urine Nitrite Negative (NEG) Urine Bilirubin Small (NEG) Urine Urobilinogen Dipstick 1.0 mg/dL (0.2 mg/dL) Urine Leukocyte Esterase Small (NEG) Urine RBC 0 /HPF (0-2) Urine WBC 5-10 /HPF (0-4) Urine Squamous Epithelial Cells Many /LPF Urine Amorphous Sediment Present /HPF Urine Bacteria Mod /HPF (0-FEW) Urine Hyaline Casts Many /HPF Urine Granular Casts Few /HPF Urine Mucus Marked /LPF Test 12/18/18 08:00 White Blood Count 12.4 x10^3/uL (4.0-11.0) Red Blood Count 4.35 x10^6/uL (3.50-5.40) Hemoglobin 13.4 g/dL (12.0-15.5) Hematocrit 40.6 % (36.0-47.0) Mean Corpuscular Volume 94 fL (79-100) Mean Corpuscular Hemoglobin 31 pg (25-35) Mean Corpuscular Hemoglobin Concent 33 g/dL (31-37) Red Cell Distribution Width 14.5 % (11.5-14.5) Platelet Count 167 x10^3/uL (140-400) Neutrophils (%) (Auto) 85 % (31-73) Lymphocytes (%) (Auto) 8 % (24-48) Monocytes (%) (Auto) 7 % (0-9) Eosinophils (%) (Auto) 0 % (0-3) Basophils (%) (Auto) 0 % (0-3) Neutrophils # (Auto) 10.5 x10^3/uL (1.8-7.7) Lymphocytes # (Auto) 1.0 x10^3/uL (1.0-4.8) Monocytes # (Auto) 0.8 x10^3/uL (0.0-1.1) Eosinophils # (Auto) 0.0 x10^3/uL (0.0-0.7) Basophils # (Auto) 0.0 x10^3/uL (0.0-0.2) Problem List Problems Medical Problems: (1) Epigastric pain Status: Acute (2) Epigastric pain Status: Acute (3) Nausea Status: Acute (4) Nausea Status: Acute (5) Small bowel obstruction Status: Acute JASMYN MYERS MD Dec 18, 2018 09:57
--- NOTE | 2018-12-18 10:00 | RAD ---
EXAM: 2 VIEW ABDOMEN WITH ONE VIEW CHEST. HISTORY: Small bowel obstruction. COMPARISON: 12/17/2018. FINDINGS: A frontal view of the chest and supine/upright views of the abdomen are obtained. There is atelectasis in the costophrenic angles. There are no confluent infiltrates. There is no pneumothorax or pleural effusion. The heart is moderately enlarged. There are atherosclerotic calcifications of the aorta. A nasogastric tube is looped within the distal esophagus. There is focal widening of the right paratracheal stripe superiorly. 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 There is no pneumoperitoneum. Mild to moderate small bowel distention persists in the left abdomen. There is some gas distally. There are calcified granulomas in the spleen. Changes of pelvic floor reconstruction are noted. There are moderate degenerative changes of the lower lumbar spine. IMPRESSION: 1. The nasogastric tube loops within the distal esophagus. Recommend advancement by 15 cm. 2. Moderate cardiomegaly. 3. Persistent small bowel dilatation in the left abdomen. There is some gas distally. Electronically signed by: Yadiel Root MD (12/18/2018 9:57 AM) [facility]
[2018-12-18 10:11] LABS: PROTHROMBIN TIME PATIENT 19.7 SEC (11.7-14.0)
[2018-12-18 10:19] LABS: ALBUMIN 3.5 g/dL (3.4-5.0); ALBUMIN/GLOBULIN RATIO 0.7 (1.0-1.7); CALCIUM 9.2 mg/dL (8.5-10.1); CREATININE 2.7 mg/dL (0.6-1.0); GFR 20.5; POTASSIUM 4.5 mmol/L (3.5-5.1); TOTAL BILIRUBIN 1.3 mg/dL (0.2-1.0); TOTAL PROTEIN 8.2 g/dL (6.4-8.2)
--- NOTE | 2018-12-18 10:24 | PDOC ---
PROGRESS NOTES Subjective Subjective has mild epigastric pain at times. NG tube is coiled in esophagus and needs to be advanced. IV infiltrated. nurse to place new iv and advance NG tube. dr. Hollins note reviewed. lab reviewed. serum creatinine 2.2 temp 99.3 and has mild pyuria. acute abdominal series reviewed with mild/mod small bowel dilatation but some gas distal noted. Objective Objective Vital Signs Date Time Temp Pulse Resp B/P (MAP) Pulse Ox O2 Delivery O2 Flow Rate FiO2 12/18/18 07:00 99.3 95 16 152/70 (97) 92 Room Air 99.3 Intake and Output 12/18/18 07:00 Intake Total 0 ml Output Total 550 ml Balance -550 ml Intake Oral 0 ml Output Urine Total 100 ml Gastric Drainage Total 450 ml Physical Exam Abdomen: Soft, Other (mild epigastric tenderness. no guarding. bowel sounds are decreased) Heart: Normal S1, Normal S2 Extremities: No edema General: Alert HEENT: Atraumatic Lungs: Clear to auscultation Neuro: Normal speech Psych/Mental Status: Mental status NL Skin: No rashes Assessment Assessment Problems1. Suspect partial small-bowel obstruction. 2. Acute kidney injury on top of chronic kidney disease stage 3. 3. Hypertension. 4. Hyperlipidemia. 5. Chronic atrial fibrillation, on Coumadin, but Coumadin is on hold currently, she is n.p.o. on lovenox bridge per pharmacist 6. Chronic gout. 7. History of a left nephrectomy. pyuira low grade fever mild leukocytosis Medical Problems: (1) Epigastric pain Status: Acute (2) Epigastric pain Status: Acute (3) Nausea Status: Acute (4) Nausea Status: Acute (5) Small bowel obstruction Status: Acute Plan Plan of Care spoke with pharmacist who will adjust lovenox dose based on serum creatinine consult dr. covarrubias for WILLIAMS on ckd increase iv fluids NG tube to be advanced for suction start iv rocephin urine culture pending npo acute abdominal series tomorrow Comment Review of Relevant I have reviewed the following items rubia (where applicable) has been applied. Labs Laboratory Tests Test 12/17/18 12:32 12/17/18 18:24 12/18/18 00:12 12/18/18 03:30 Prothrombin Time 17.4 SEC (11.7-14.0) Prothromb Time International Ratio 1.5 (0.8-1.1) Sodium Level 141 mmol/L (136-145) Potassium Level 4.2 mmol/L (3.5-5.1) Chloride Level 103 mmol/L (98-107) Carbon Dioxide Level 23 mmol/L (21-32) Anion Gap 15 (6-14) Blood Urea Nitrogen 37 mg/dL (7-20) Creatinine 2.2 mg/dL (0.6-1.0) Estimated GFR (Cockcroft-Gault) 25.9 BUN/Creatinine Ratio 17 (6-20) Glucose Level 145 mg/dL (70-99) Calcium Level 9.1 mg/dL (8.5-10.1) Total Bilirubin 1.1 mg/dL (0.2-1.0) Aspartate Amino Transf (AST/SGOT) 25 U/L (15-37) Alanine Aminotransferase (ALT/SGPT) 27 U/L (14-59) Alkaline Phosphatase 65 U/L (46-116) Total Protein 8.5 g/dL (6.4-8.2) Albumin 3.7 g/dL (3.4-5.0) Albumin/Globulin Ratio 0.8 (1.0-1.7) Glucose (Fingerstick) 134 mg/dL (70-99) 128 mg/dL (70-99) Urine Collection Type Unknown Urine Color Jessica Urine Clarity Cloudy Urine pH 5.0 Urine Specific [place] 1.020 Urine Protein 100 mg/dL (NEG-TRACE) Urine Glucose (UA) Negative mg/dL (NEG) Urine Ketones (Stick) Negative mg/dL (NEG) Urine Blood Negative (NEG) Urine Nitrite Negative (NEG) Urine Bilirubin Small (NEG) Urine Urobilinogen Dipstick 1.0 mg/dL (0.2 mg/dL) Urine Leukocyte Esterase Small (NEG) Urine RBC 0 /HPF (0-2) Urine WBC 5-10 /HPF (0-4) Urine Squamous Epithelial Cells Many /LPF Urine Amorphous Sediment Present /HPF Urine Bacteria Mod /HPF (0-FEW) Urine Hyaline Casts Many /HPF Urine Granular Casts Few /HPF Urine Mucus Marked /LPF Test 12/18/18 08:00 White Blood Count 12.4 x10^3/uL (4.0-11.0) Red Blood Count 4.35 x10^6/uL (3.50-5.40) Hemoglobin 13.4 g/dL (12.0-15.5) Hematocrit 40.6 % (36.0-47.0) Mean Corpuscular Volume 94 fL (79-100) Mean Corpuscular Hemoglobin 31 pg (25-35) Mean Corpuscular Hemoglobin Concent 33 g/dL (31-37) Red Cell Distribution Width 14.5 % (11.5-14.5) Platelet Count 167 x10^3/uL (140-400) Neutrophils (%) (Auto) 85 % (31-73) Lymphocytes (%) (Auto) 8 % (24-48) Monocytes (%) (Auto) 7 % (0-9) Eosinophils (%) (Auto) 0 % (0-3) Basophils (%) (Auto) 0 % (0-3) Neutrophils # (Auto) 10.5 x10^3/uL (1.8-7.7) Lymphocytes # (Auto) 1.0 x10^3/uL (1.0-4.8) Monocytes # (Auto) 0.8 x10^3/uL (0.0-1.1) Eosinophils # (Auto) 0.0 x10^3/uL (0.0-0.7) Basophils # (Auto) 0.0 x10^3/uL (0.0-0.2) Laboratory Tests Test 12/17/18 12:32 12/17/18 18:24 12/18/18 00:12 12/18/18 03:30 Prothrombin Time 17.4 SEC (11.7-14.0) Prothromb Time International Ratio 1.5 (0.8-1.1) Sodium Level 141 mmol/L (136-145) Potassium Level 4.2 mmol/L (3.5-5.1) Chloride Level 103 mmol/L (98-107) Carbon Dioxide Level 23 mmol/L (21-32) Anion Gap 15 (6-14) Blood Urea Nitrogen 37 mg/dL (7-20) Creatinine 2.2 mg/dL (0.6-1.0) Estimated GFR (Cockcroft-Gault) 25.9 BUN/Creatinine Ratio 17 (6-20) Glucose Level 145 mg/dL (70-99) Calcium Level 9.1 mg/dL (8.5-10.1) Total Bilirubin 1.1 mg/dL (0.2-1.0) Aspartate Amino Transf (AST/SGOT) 25 U/L (15-37) Alanine Aminotransferase (ALT/SGPT) 27 U/L (14-59) Alkaline Phosphatase 65 U/L (46-116) Total Protein 8.5 g/dL (6.4-8.2) Albumin 3.7 g/dL (3.4-5.0) Albumin/Globulin Ratio 0.8 (1.0-1.7) Glucose (Fingerstick) 134 mg/dL (70-99) 128 mg/dL (70-99) Urine Collection Type Unknown Urine Color Jessica Urine Clarity Cloudy Urine pH 5.0 Urine Specific [place] 1.020 Urine Protein 100 mg/dL (NEG-TRACE) Urine Glucose (UA) Negative mg/dL (NEG) Urine Ketones (Stick) Negative mg/dL (NEG) Urine Blood Negative (NEG) Urine Nitrite Negative (NEG) Urine Bilirubin Small (NEG) Urine Urobilinogen Dipstick 1.0 mg/dL (0.2 mg/dL) Urine Leukocyte Esterase Small (NEG) Urine RBC 0 /HPF (0-2) Urine WBC 5-10 /HPF (0-4) Urine Squamous Epithelial Cells Many /LPF Urine Amorphous Sediment Present /HPF Urine Bacteria Mod /HPF (0-FEW) Urine Hyaline Casts Many /HPF Urine Granular Casts Few /HPF Urine Mucus Marked /LPF Test 12/18/18 08:00 White Blood Count 12.4 x10^3/uL (4.0-11.0) Red Blood Count 4.35 x10^6/uL (3.50-5.40) Hemoglobin 13.4 g/dL (12.0-15.5) Hematocrit 40.6 % (36.0-47.0) Mean Corpuscular Volume 94 fL (79-100) Mean Corpuscular Hemoglobin 31 pg (25-35) Mean Corpuscular Hemoglobin Concent 33 g/dL (31-37) Red Cell Distribution Width 14.5 % (11.5-14.5) Platelet Count 167 x10^3/uL (140-400) Neutrophils (%) (Auto) 85 % (31-73) Lymphocytes (%) (Auto) 8 % (24-48) Monocytes (%) (Auto) 7 % (0-9) Eosinophils (%) (Auto) 0 % (0-3) Basophils (%) (Auto) 0 % (0-3) Neutrophils # (Auto) 10.5 x10^3/uL (1.8-7.7) Lymphocytes # (Auto) 1.0 x10^3/uL (1.0-4.8) Monocytes # (Auto) 0.8 x10^3/uL (0.0-1.1) Eosinophils # (Auto) 0.0 x10^3/uL (0.0-0.7) Basophils # (Auto) 0.0 x10^3/uL (0.0-0.2) Medications Current Medications Ondansetron HCl (Zofran) 4 mg 1X ONCE IM ; Start 12/16/18 at 09:30; Stop 12/16/18 at 09:31; Status DC Fentanyl Citrate (Fentanyl 2ml Vial) 75 mcg 1X ONCE IVP Last administered on 12/16/18at 09:46; Start 12/16/18 at 09:45; Stop 12/16/18 at 09:46; Status DC Ondansetron HCl (Zofran) 4 mg 1X ONCE IVP Last administered on 12/16/18at 09:51; Start 12/16/18 at 10:00; Stop 12/16/18 at 10:01; Status DC Sodium Chloride 1,000 ml @ 1,000 mls/hr 1X ONCE IV Last administered on 12/16/18at 10:40; Start 12/16/18 at 10:15; Stop 12/16/18 at 11:14; Status DC Clonidine HCl (Catapres) 0.1 mg 1X ONCE PO Last administered on 12/16/18at 15:12; Start 12/16/18 at 14:15; Stop 12/16/18 at 14:16; Status DC Fentanyl Citrate (Fentanyl 2ml Vial) 75 mcg 1X ONCE IVP ; Start 12/16/18 at 15:15; Stop 12/16/18 at 15:16; Status DC Ondansetron HCl (Zofran) 4 mg PRN Q8HRS PRN IV NAUSEA/VOMITING; Start 12/16/18 at 15:15; Stop 12/16/18 at 17:10; Status DC Fentanyl Citrate (Fentanyl 2ml Vial) 50 mcg PRN Q1HR PRN IV PAIN Last administered on 12/17/18at 07:28; Start 12/16/18 at 15:15; Stop 12/17/18 at 15:14; Status DC Sodium Chloride 1,000 ml @ 125 mls/hr Q8H IV ; Start 12/16/18 at 15:10; Stop 12/16/18 at 17:26; Status DC Acetaminophen (Tylenol) 650 mg PRN Q4HRS PRN PO FEVER; Start 12/16/18 at 15:15; Stop 12/17/18 at 15:14; Status DC Potassium Chloride/Dextrose/ Sod Cl 1,000 ml @ 100 mls/hr Q10H IV Last administered on 12/18/18 01:27; Start 12/16/18 at 17:00 Ondansetron HCl (Zofran) 4 mg PRN Q6HRS PRN IVP NAUSEA/VOMITING Last administered on 12/17/18at 17:40; Start 12/16/18 at 17:00 Hydralazine HCl (Apresoline Inj) 10 mg PRN Q6HRS PRN IVP ELEVATED BP, SEE COMMENTS Last administered on 12/18/18at 01:27; Start 12/17/18 at 01:00 Enoxaparin Sodium (Lovenox 100mg Syringe) 100 mg DAILY SQ Last administered on 12/17/18at 12:49; Start 12/17/18 at 10:30 Info (Anti-Coagulation Monitoring By Pharmacy) 1 each PRN DAILY PRN MC SEE COMMENTS; Start 12/17/18 at 10:15 Pantoprazole Sodium (PROTONIX VIAL for IV PUSH) 40 mg DAILYAC IVP Last administered on 12/17/18at 12:49; Start 12/17/18 at 10:30 Acetaminophen (Tylenol Supp) 650 mg PRN Q6HRS PRN [place] HEADACHE / TEMP; Start 12/17/18 at 10:00 Fentanyl Citrate (Fentanyl 2ml Vial) 50 mcg PRN Q4HRS PRN IVP PAIN Last admini stered on 12/17/18at 17:40; Start 12/17/18 at 10:00 Insulin Human Lispro (HumaLOG) 0-6 UNITS BG 300-399... Q6HRS SQ ; Start at 12:00; Stop 12/17/18 at 10:24; Status DC Active Scripts Active Reported Losartan Potassium 100 Mg Tablet 100 Mg PO DAILY Multi-Vitamin Daily (Multivitamin) 1 Each Tablet 1 Tab PO DAILY 30 Days Coumadin (Warfarin Sodium) 4 Mg Tablet 3.5 Mg PO DAILY Atorvastatin Calcium 20 Mg Tablet 1 Tab PO DAILY Toprol Xl (Metoprolol Succinate) 50 Mg Tab.er.24h 25 Mg PO DAILY Amlodipine Besylate 10 Mg Tablet 10 Mg PO DAILY Uloric (Febuxostat) 40 Mg Tablet 1 Tab PO DAILY Detrol La (Tolterodine Tartrate) 4 Mg Cap.er.24h 1 Cap PO DAILY Vitals/I & O Vital Sign - Last 24 Hours 12/17/18 12/17/18 12/17/18 12/17/18 11:00 13:30 15:00 17:40 Temp 97.7 98.4 99.5 97.7 98.4 99.5 Pulse 74 95 84 Resp 16 16 16 B/P (MAP) 138/64 (88) 150/80 (103) 154/93 (113) Pulse Ox 94 94 93 O2 Delivery Room Air Room Air Room Air Room Air 12/17/18 12/17/18 12/17/18 12/17/18 18:10 19:28 20:00 22:45 Temp 98.7 99.3 98.7 99.3 Pulse 78 110 Resp 18 16 B/P (MAP) 167/83 (111) 167/94 (118) Pulse Ox 91 92 O2 Delivery Room Air Room Air Room Air Room Air 12/18/18 12/18/18 12/18/18 01:27 03:22 07:00 Temp 99.0 99.3 99.0 99.3 Pulse 110 83 95 Resp 16 16 B/P (MAP) 167/94 104/77 (86) 152/70 (97) Pulse Ox 92 92 O2 Delivery Room Air Room Air Intake and Output 12/17/18 12/17/18 12/18/18 15:00 23:00 07:00 Intake Total 0 ml Output Total 450 ml 100 ml Balance -450 ml -100 ml LAURA CROOKS MD Dec 18, 2018 10:24
[2018-12-18] MEDS: ANTI-COAG MONITOR BY PHARMACY. MC PRN (10:42)
[2018-12-18 10:47] VITALS: BP 132/81
--- NOTE | 2018-12-18 11:22 | PDOC2 ---
CONSULT Date of Consult Date of Consult DATE: 12/18/18 TIME: 11:22 Reason for Consult Reason for Consult: williams Identification/Chief Complaint Chief Complaint Abdominal pain, Nausea, Mouth feeling dry Source Source: Chart review, Patient History of Present Illness Reason for Visit: Pt is a 83-year-old morbidly obese female with a history of chronic atrial fibrillation, on Coumadin, hypertension chronic gout, history of a left nephrectomy for kidney stone disease and has chronic kidney disease stage 3, who noted an onset of epigastric abdominal pain, some back pain, nausea, and vomiting. Her last bowel movement was on Tuesday . C/O N/v . No Urinary complaints Denies NSAID use. Follows with Dr. Cavanaugh for CKD Q 6 months, doesnt remember her bseline renal function.States her fu marilyn is coming soon Ultrasound of the abdomen, which showed no gallstones. CT scan of the abdomen and pelvis -dilatation of the small bowel loops without a transitional zone. It was thought to be related either to a mild ileus or a partial small-bowel obstruction. Current Problem List Problem List Problems Medical Problems: (1) Epigastric pain Status: Acute (2) Epigastric pain Status: Acute (3) Nausea Status: Acute (4) Nausea Status: Acute (5) Small bowel obstruction Status: Acute Current Medications Current Medications Current Medications Ondansetron HCl (Zofran) 4 mg 1X ONCE IM ; Start 12/16/18 at 09:30; Stop 12/16/18 at 09:31; Status DC Fentanyl Citrate (Fentanyl 2ml Vial) 75 mcg 1X ONCE IVP Last administered on 12/16/18at 09:46; Start 12/16/18 at 09:45; Stop 12/16/18 at 09:46; Status DC Ondansetron HCl (Zofran) 4 mg 1X ONCE IVP Last administered on 12/16/18at 09:51; Start 12/16/18 at 10:00; Stop 12/16/18 at 10:01; Status DC Sodium Chloride 1,000 ml @ 1,000 mls/hr 1X ONCE IV Last administered on 12/16/18at 10:40; Start 12/16/18 at 10:15; Stop 12/16/18 at 11:14; Status DC Clonidine HCl (Catapres) 0.1 mg 1X ONCE PO Last administered on 12/16/18at 15:12; Start 12/16/18 at 14:15; Stop 12/16/18 at 14:16; Status DC Fentanyl Citrate (Fentanyl 2ml Vial) 75 mcg 1X ONCE IVP ; Start 12/16/18 at 15:15; Stop 12/16/18 at 15:16; Status DC Ondansetron HCl (Zofran) 4 mg PRN Q8HRS PRN IV NAUSEA/VOMITING; Start 12/16/18 at 15:15; Stop 12/16/18 at 17:10; Status DC Fentanyl Citrate (Fentanyl 2ml Vial) 50 mcg PRN Q1HR PRN IV PAIN Last administered on 12/17/18at 07:28; Start 12/16/18 at 15:15; Stop 12/17/18 at 15:14; Status DC Sodium Chloride 1,000 ml @ 125 mls/hr Q8H IV ; Start 12/16/18 at 15:10; Stop 12/16/18 at 17:26; Status DC Acetaminophen (Tylenol) 650 mg PRN Q4HRS PRN PO FEVER; Start 12/16/18 at 15:15; Stop 12/17/18 at 15:14; Status DC Potassium Chloride/Dextrose/ Sod Cl 1,000 ml @ 100 mls/hr Q10H IV Last administered on 12/18/18at 01:27; Start 12/16/18 at 17:00; Stop 12/18/18 at 10:34; Status DC Ondansetron HCl (Zofran) 4 mg PRN Q6HRS PRN IVP NAUSEA/VOMITING Last administered on 12/17/18at 17:40; Start 12/16/18 at 17:00 Hydralazine HCl (Apresoline Inj) 10 mg PRN Q6HRS PRN IVP ELEVATED BP, SEE COMMENTS Last administered on 12/18/18at 01:27; Start 12/17/18 at 01:00 Enoxaparin Sodium (Lovenox 100mg Syringe) 100 mg DAILY SQ Last administered on 12/17/18at 12:49; Start 12/17/18 at 10:30 Info (Anti-Coagulation Monitoring By Pharmacy) 1 each PRN DAILY PRN MC SEE COMMENTS Last administered on 12/18/18at 10:42; Start 12/17/18 at 10:15 Pantoprazole Sodium (PROTONIX VIAL for IV PUSH) 40 mg DAILYAC IVP Last administered on 12/17/18at 12:49; Start 12/17/18 at 10:30 Acetaminophen (Tylenol Supp) 650 mg PRN Q6HRS PRN [place] HEADACHE / TEMP; Start 12/17/18 at 10:00 Fentanyl Citrate (Fentanyl 2ml Vial) 50 mcg PRN Q4HRS PRN IVP PAIN Last administered on 12/17/18at 17:40; Start 12/17/18 at 10:00 Insulin Human Lispro (HumaLOG) 0-6 UNITS BG 300-399... Q6HRS SQ ; Start 12/17/18 at 12:00; Stop 12/17/18 at 10:24; Status DC Ceftriaxone Sodium (Rocephin) 1 gm Q24H IVP ; Start 12/18/18 at 11:00 Dextrose/Sodium Chloride 1,000 ml @ 100 mls/hr Q10H IV ; Start 12/18/18 at 10:30 Active Scripts Active Reported Losartan Potassium 100 Mg Tablet 100 Mg PO DAILY Multi-Vitamin Daily (Multivitamin) 1 Each Tablet 1 Tab PO DAILY 30 Days Coumadin (Warfarin Sodium) 4 Mg Tablet 3.5 Mg PO DAILY Atorvastatin Calcium 20 Mg Tablet 1 Tab PO DAILY Toprol Xl (Metoprolol Succinate) 50 Mg Tab.er.24h 25 Mg PO DAILY Amlodipine Besylate 10 Mg Tablet 10 Mg PO DAILY Uloric (Febuxostat) 40 Mg Tablet 1 Tab PO DAILY Detrol La (Tolterodine Tartrate) 4 Mg Cap.er.24h 1 Cap PO DAILY Allergies Allergies: Coded Allergies: Iodine and Iodide Containing Produc (Verified Allergy, Intermediate, 07/21/15) ROS Review of System Per HPI Physical Exam Physical Exam GEN- NAD HEENT: OM dry , NG tube NECK: supple HEART RRR LUNGS: Clear, Non labored ABDOMEN: Soft, obese. epigastric tenderness, but no guarding EXTREMITIES: NO LE edema SKIN: No rashes. NEUROLOGICAL: Grossly tory; - No Sheldon, No CVA or SP tenderness Vital Signs Vital Signs Date Time Temp Pulse Resp B/P (MAP) Pulse Ox O2 Delivery O2 Flow Rate FiO2 12/18/18 10:47 98.7 105 16 132/81 (98) 93 Room Air 98.7 Assessment & Plan WILLIAMS - Suspect ATN 2//2 Poor Po intake, Vomiting, SBO UA unremarkable, Renal US Unremarkable E-Lytes Stable, Agree with holding losartan Continue IVF, suppportive care, Strict I/O ,avoid Nephrotoxins, Monitor CKD stage 3 - Follows with Dr. Cavanaugh Q 6 months Will Obtain labs from our office Solitary Kidney - S/P Lt Nephrectomy SBO- HTN- No hypotensive episode, Continue antihypetensives except Losartan Chronic atrial fibrillation, on Coumadin Chronic gout. Labs Labs Laboratory Tests Test 12/17/18 12:32 12/17/18 18:24 12/18/18 00:12 12/18/18 03:30 Prothrombin Time 17.4 SEC (11.7-14.0) Prothromb Time International Ratio 1.5 (0.8-1.1) Sodium Level 141 mmol/L (136-145) Potassium Level 4.2 mmol/L (3.5-5.1) Chloride Level 103 mmol/L (98-107) Carbon Dioxide Level 23 mmol/L (21-32) Anion Gap 15 (6-14) Blood Urea Nitrogen 37 mg/dL (7-20) Creatinine 2.2 mg/dL (0.6-1.0) Estimated GFR (Cockcroft-Gault) 25.9 BUN/Creatinine Ratio 17 (6-20) Glucose Level 145 mg/dL (70-99) Calcium Level 9.1 mg/dL (8.5-10.1) Total Bilirubin 1.1 mg/dL (0.2-1.0) Aspartate Amino Transf (AST/SGOT) 25 U/L (15-37) Alanine Aminotransferase (ALT/SGPT) 27 U/L (14-59) Alkaline Phosphatase 65 U/L (46-116) Total Protein 8.5 g/dL (6.4-8.2) Albumin 3.7 g/dL (3.4-5.0) Albumin/Globulin Ratio 0.8 (1.0-1.7) Glucose (Fingerstick) 134 mg/dL (70-99) 128 mg/dL (70-99) Urine Collection Type Unknown Urine Color Jessica Urine Clarity Cloudy Urine pH 5.0 Urine Specific [place] 1.020 Urine Protein 100 mg/dL (NEG-TRACE) Urine Glucose (UA) Negative mg/dL (NEG) Urine Ketones (Stick) Negative mg/dL (NEG) Urine Blood Negative (NEG) Urine Nitrite Negative (NEG) Urine Bilirubin Small (NEG) Urine Urobilinogen Dipstick 1.0 mg/dL (0.2 mg/dL) Urine Leukocyte Esterase Small (NEG) Urine RBC 0 /HPF (0-2) Urine WBC 5-10 /HPF (0-4) Urine Squamous Epithelial Cells Many /LPF Urine Amorphous Sediment Present /HPF Urine Bacteria Mod /HPF (0-FEW) Urine Hyaline Casts Many /HPF Urine Granular Casts Few /HPF Urine Mucus Marked /LPF Test 12/18/18 07:49 12/18/18 08:00 12/18/18 09:00 Sodium Level 138 mmol/L (136-145) Potassium Level 4.5 mmol/L (3.5-5.1) Chloride Level 102 mmol/L (98-107) Carbon Dioxide Level 21 mmol/L (21-32) Anion Gap 15 (6-14) Blood Urea Nitrogen 45 mg/dL (7-20) Creatinine 2.7 mg/dL (0.6-1.0) Estimated GFR (Cockcroft-Gault) 20.5 BUN/Creatinine Ratio 17 (6-20) Glucose Level 126 mg/dL (70-99) Calcium Level 9.2 mg/dL (8.5-10.1) Total Bilirubin 1.3 mg/dL (0.2-1.0) Aspartate Amino Transf (AST/SGOT) 27 U/L (15-37) Alanine Aminotransferase (ALT/SGPT) 21 U/L (14-59) Alkaline Phosphatase 60 U/L (46-116) Total Protein 8.2 g/dL (6.4-8.2) Albumin 3.5 g/dL (3.4-5.0) Albumin/Globulin Ratio 0.7 (1.0-1.7) Amylase Level 155 U/L (25-115) White Blood Count 12.4 x10^3/uL (4.0-11.0) Red Blood Count 4.35 x10^6/uL (3.50-5.40) Hemoglobin 13.4 g/dL (12.0-15.5) Hematocrit 40.6 % (36.0-47.0) Mean Corpuscular Volume 94 fL (79-100) Mean Corpuscular Hemoglobin 31 pg (25-35) Mean Corpuscular Hemoglobin Concent 33 g/dL (31-37) Red Cell Distribution Width 14.5 % (11.5-14.5) Platelet Count 167 x10^3/uL (140-400) Neutrophils (%) (Auto) 85 % (31-73) Lymphocytes (%) (Auto) 8 % (24-48) Monocytes (%) (Auto) 7 % (0-9) Eosinophils (%) (Auto) 0 % (0-3) Basophils (%) (Auto) 0 % (0-3) Neutrophils # (Auto) 10.5 x10^3/uL (1.8-7.7) Lymphocytes # (Auto) 1.0 x10^3/uL (1.0-4.8) Monocytes # (Auto) 0.8 x10^3/uL (0.0-1.1) Eosinophils # (Auto) 0.0 x10^3/uL (0.0-0.7) Basophils # (Auto) 0.0 x10^3/uL (0.0-0.2) Prothrombin Time 19.7 SEC (11.7-14.0) Prothromb Time International Ratio 1.7 (0.8-1.1) Laboratory Tests Test 12/17/18 12:32 12/17/18 18:24 12/18/18 00:12 12/18/18 03:30 Prothrombin Time 17.4 SEC (11.7-14.0) Prothromb Time International Ratio 1.5 (0.8-1.1) Sodium Level 141 mmol/L (136-145) Potassium Level 4.2 mmol/L (3.5-5.1) Chloride Level 103 mmol/L (98-107) Carbon Dioxide Level 23 mmol/L (21-32) Anion Gap 15 (6-14) Blood Urea Nitrogen 37 mg/dL (7-20) Creatinine 2.2 mg/dL (0.6-1.0) Estimated GFR (Cockcroft-Gault) 25.9 BUN/Creatinine Ratio 17 (6-20) Glucose Level 145 mg/dL (70-99) Calcium Level 9.1 mg/dL (8.5-10.1) Total Bilirubin 1.1 mg/dL (0.2-1.0) Aspartate Amino Transf (AST/SGOT) 25 U/L (15-37) Alanine Aminotransferase (ALT/SGPT) 27 U/L (14-59) Alkaline Phosphatase 65 U/L (46-116) Total Protein 8.5 g/dL (6.4-8.2) Albumin 3.7 g/dL (3.4-5.0) Albumin/Globulin Ratio 0.8 (1.0-1.7) Glucose (Fingerstick) 134 mg/dL (70-99) 128 mg/dL (70-99) Urine Collection Type Unknown Urine Color Jessica Urine Clarity Cloudy Urine pH 5.0 Urine Specific [place] 1.020 Urine Protein 100 mg/dL (NEG-TRACE) Urine Glucose (UA) Negative mg/dL (NEG) Urine Ketones (Stick) Negative mg/dL (NEG) Urine Blood Negative (NEG) Urine Nitrite Negative (NEG) Urine Bilirubin Small (NEG) Urine Urobilinogen Dipstick 1.0 mg/dL (0.2 mg/dL) Urine Leukocyte Esterase Small (NEG) Urine RBC 0 /HPF (0-2) Urine WBC 5-10 /HPF (0-4) Urine Squamous Epithelial Cells Many /LPF Urine Amorphous Sediment Present /HPF Urine Bacteria Mod /HPF (0-FEW) Urine Hyaline Casts Many /HPF Urine Granular Casts Few /HPF Urine Mucus Marked /LPF Test 12/18/18 07:49 12/18/18 08:00 12/18/18 09:00 Sodium Level 138 mmol/L (136-145) Potassium Level 4.5 mmol/L (3.5-5.1) Chloride Level 102 mmol/L (98-107) Carbon Dioxide Level 21 mmol/L (21-32) Anion Gap 15 (6-14) Blood Urea Nitrogen 45 mg/dL (7-20) Creatinine 2.7 mg/dL (0.6-1.0) Estimated GFR (Cockcroft-Gault) 20.5 BUN/Creatinine Ratio 17 (6-20) Glucose Level 126 mg/dL (70-99) Calcium Level 9.2 mg/dL (8.5-10.1) Total Bilirubin 1.3 mg/dL (0.2-1.0) Aspartate Amino Transf (AST/SGOT) 27 U/L (15-37) Alanine Aminotransferase (ALT/SGPT) 21 U/L (14-59) Alkaline Phosphatase 60 U/L (46-116) Total Protein 8.2 g/dL (6.4-8.2) Albumin 3.5 g/dL (3.4-5.0) Albumin/Globulin Ratio 0.7 (1.0-1.7) Amylase Level 155 U/L (25-115) White Blood Count 12.4 x10^3/uL (4.0-11.0) Red Blood Count 4.35 x10^6/uL (3.50-5.40) Hemoglobin 13.4 g/dL (12.0-15.5) Hematocrit 40.6 % (36.0-47.0) Mean Corpuscular Volume 94 fL (79-100) Mean Corpuscular Hemoglobin 31 pg (25-35) Mean Corpuscular Hemoglobin Concent 33 g/dL (31-37) Red Cell Distribution Width 14.5 % (11.5-14.5) Platelet Count 167 x10^3/uL (140-400) Neutrophils (%) (Auto) 85 % (31-73) Lymphocytes (%) (Auto) 8 % (24-48) Monocytes (%) (Auto) 7 % (0-9) Eosinophils (%) (Auto) 0 % (0-3) Basophils (%) (Auto) 0 % (0-3) Neutrophils # (Auto) 10.5 x10^3/uL (1.8-7.7) Lymphocytes # (Auto) 1.0 x10^3/uL (1.0-4.8) Monocytes # (Auto) 0.8 x10^3/uL (0.0-1.1) Eosinophils # (Auto) 0.0 x10^3/uL (0.0-0.7) Basophils # (Auto) 0.0 x10^3/uL (0.0-0.2) Prothrombin Time 19.7 SEC (11.7-14.0) Prothromb Time International Ratio 1.7 (0.8-1.1) Review All relevant outside records, renal labs, imaging studies, telemetry/EKG's were reviewed. Images Images The right kidney measures 11.2 cm. Cortical thickness and echogenicity are preserved. There is no hydronephrosis. The left kidney is surgically absent. The bladder is decompressed and not well seen. The abdominal aorta and inferior vena cava are grossly patent and normal in caliber. IMPRESSION: 1. Status post left nephrectomy. Unremarkable examination of the right kidney. No hydronephrosis. CT scan abdomen Unopacified liver, spleen, gallbladder and pancreas are normal. Both adrenal glands and right kidney appears normal. Left kidney is not seen and is absent either surgically or congenitally. Mild dilation of small bowel loops seen in the central abdomen without definite transition. No inflammatory changes are seen. Small ventral abdominal wall hernia containing omental fat There is scattered stool in the colon. The urinary bladder is decompressed. Uterus is either atrophic or surgically absent. IMPRESSION: Mild dilation of small bowel loops in the central abdomen without a definite transition. Findings may be related to mild ileus pattern or partial small bowel obstruction. Correlate clinically. Close clinical and radiographic follow-up recommended. RUBEN RUCKER MD Dec 18, 2018 11:22
--- NOTE | 2018-12-18 11:38 | RAD ---
KUB History: NG tube advancement. Technique: Supine view the abdomen. Comparison: December 18, 2018 Findings: Interval advancement of enteric tube looped within the gastric fundus with tip projecting over the proximal stomach. Unchanged air-filled dilated loops of small bowel within the left abdomen. Air and stool scattered throughout the imaged colon. Impression: 1. Interval advancement of enteric tube looped within the gastric fundus with tip projecting over the proximal stomach. Electronically signed by: Rubin Hernandez DO (12/18/2018 11:35 AM) [id number]
--- NOTE | 2018-12-18 12:09 | RAD ---
EXAM: RENAL/RETROPERITONAL ULTRASOUND. HISTORY: Left nephrectomy. COMPARISON: 12/16/2018. FINDINGS: Ultrasound of the kidneys, bladder and retroperitoneum was performed. The right kidney measures 11.2 cm. Cortical thickness and echogenicity are preserved. There is no hydronephrosis. The left kidney is surgically absent. The bladder is decompressed and not well seen. The abdominal aorta and inferior vena cava are grossly patent and normal in caliber. IMPRESSION: 1. Status post left nephrectomy. Unremarkable examination of the right kidney. No hydronephrosis. Electronically signed by: Yadiel Root MD (12/18/2018 12:07 PM) [facility]
--- NOTE | 2018-12-18 12:38 | NUR ---
SS following for discharge planning. SS reviewed pt chart. Pt is from home and is currently on room air. PT/OT ordered. SS will await PT/OT evaluations and recommendations and will proceed accordingly with discharge planning.
[2018-12-18] MEDS: PANTOPRAZOLE IV PUSH 40 MG VIAL. IVP SCH (12:56)
[2018-12-18] MEDS: IV DEXTROSE 5 %-0.45 % NACL 1,000 ML IV SCH ×2 (12:56→21:15)
[2018-12-18] MEDS: cefTRIAXone IV Push 1 GM VIAL. IVP SCH (12:57)
[2018-12-18 14:45] VITALS: BP 169/91
[2018-12-18] MEDS ORDERED: BUPIVACAINE-EPI 0.5%-1:200000 MPF 30 ML VIAL. INJ ONE (15:00)
[2018-12-18 19:00] VITALS: BP 137/63
[2018-12-18] MEDS: ONDANSETRON PF 4 MG/2 ML VIAL. IVP PRN (21:17)
[2018-12-18] MEDS: fentaNYL PF VIAL 100 MCG/2 ML VIAL IVP PRN (21:18)
[2018-12-18 22:48] VITALS: BP 138/87
[2018-12-19 02:58] VITALS: BP 134/78
--- NOTE | 2018-12-19 05:06 | NUR ---
Pt pvr after voiding was 308ml, 16 fr sethi placed with 200 ml out will monitor pt.
[2018-12-19] MEDS ORDERED: BUPIVACAINE-EPI 0.5%-1:200000 MPF 30 ML VIAL. INJ ONE (06:00)
[2018-12-19 06:05] LABS: BASO % 0 % (0-3); EOS % 0 % (0-3); HEMATOCRIT 40.6 % (36.0-47.0); HEMOGLOBIN 13.6 g/dL (12.0-15.5); LYMPH # 0.8 x10^3/uL (1.0-4.8); LYMPH % 6 % (24-48); MEAN CORPUSCULAR HEMOGLOBIN 31 pg (25-35); MEAN CORPUSCULAR HGB CONC 33 g/dL (31-37); MEAN CORPUSCULAR VOLUME 94 fL (79-100); MONO # 0.8 x10^3/uL (0.0-1.1); MONO % 6 % (0-9); NEUT % 89 % (31-73); PLATELET COUNT 151 x10^3/uL (140-400); RED BLOOD COUNT 4.33 x10^6/uL (3.50-5.40); RED CELL DISTRIBUTION WIDTH 14.3 % (11.5-14.5); WHITE BLOOD COUNT 13.6 x10^3/uL (4.0-11.0)
[2018-12-19 06:14] LABS: PROTHROMBIN TIME PATIENT 19.9 SEC (11.7-14.0)
[2018-12-19 06:45] LABS: ALBUMIN 2.9 g/dL (3.4-5.0); ALBUMIN/GLOBULIN RATIO 0.6 (1.0-1.7); CALCIUM 8.8 mg/dL (8.5-10.1); CREATININE 2.5 mg/dL (0.6-1.0); GFR 22.4; TOTAL BILIRUBIN 1.3 mg/dL (0.2-1.0); TOTAL PROTEIN 7.7 g/dL (6.4-8.2)
[2018-12-19] MEDS ORDERED: LIDOCAINE 1% PF 2 ML VIAL. ID PRN (07:00)
[2018-12-19] MEDS ORDERED: PROCHLORPERAZINE 10 MG/2 ML VIAL. IV PRN (07:00)
[2018-12-19] MEDS ORDERED: IV RINGERS,LACTATED 1000ML 1,000 ML IV SCH (07:00)
[2018-12-19] MEDS ORDERED: HYDROmorphone 2 MG/ML VIAL IV PRN (07:00)
[2018-12-19] MEDS ORDERED: MORPHINE SULFATE 2 MG/ML VIAL. IV PRN (07:00)
[2018-12-19] MEDS ORDERED: ONDANSETRON PF 4 MG/2 ML VIAL. IV PRN (07:00)
[2018-12-19] MEDS ORDERED: fentaNYL PF VIAL 100 MCG/2 ML VIAL IV PRN ×2 (07:00)
[2018-12-19 07:16] VITALS: BP 121/59
--- NOTE | 2018-12-19 08:08 | PDOC ---
SURGICAL PROGRESS NOTE Subjective surgery cancelled for 12/19, d/t INR 1.7 surgeon..... Myers Pre OP Ddx ..............small bowel obstruction Pos op ddx ............... anesthesia.........general procedure ...........enterolysis est blood loss fluids drains condition ..........satisfactory Vital Signs Vital Signs Date Time Temp Pulse Resp B/P (MAP) Pulse Ox O2 Delivery O2 Flow Rate FiO2 12/19/18 07:16 93.0 105 20 121/59 (79) 93 Room Air 93.0 I&O Intake and Output 12/19/18 06:59 Intake Total 0 ml Output Total 1000 ml Balance -1000 ml Intake Oral 0 ml Output Urine Total 350 ml Gastric Drainage Total 500 ml Emesis 150 ml # Voids 1 Labs Laboratory Tests Test 12/17/18 12:32 12/17/18 18:24 12/18/18 00:12 12/18/18 03:30 Prothrombin Time 17.4 SEC (11.7-14.0) Prothromb Time International Ratio 1.5 (0.8-1.1) Sodium Level 141 mmol/L (136-145) Potassium Level 4.2 mmol/L (3.5-5.1) Chloride Level 103 mmol/L (98-107) Carbon Dioxide Level 23 mmol/L (21-32) Anion Gap 15 (6-14) Blood Urea Nitrogen 37 mg/dL (7-20) Creatinine 2.2 mg/dL (0.6-1.0) Estimated GFR (Cockcroft-Gault) 25.9 BUN/Creatinine Ratio 17 (6-20) Glucose Level 145 mg/dL (70-99) Calcium Level 9.1 mg/dL (8.5-10.1) Total Bilirubin 1.1 mg/dL (0.2-1.0) Aspartate Amino Transf (AST/SGOT) 25 U/L (15-37) Alanine Aminotransferase (ALT/SGPT) 27 U/L (14-59) Alkaline Phosphatase 65 U/L (46-116) Total Protein 8.5 g/dL (6.4-8.2) Albumin 3.7 g/dL (3.4-5.0) Albumin/Globulin Ratio 0.8 (1.0-1.7) Glucose (Fingerstick) 134 mg/dL (70-99) 128 mg/dL (70-99) Urine Collection Type Unknown Urine Color Jessica Urine Clarity Cloudy Urine pH 5.0 Urine Specific [place] 1.020 Urine Protein 100 mg/dL (NEG-TRACE) Urine Glucose (UA) Negative mg/dL (NEG) Urine Ketones (Stick) Negative mg/dL (NEG) Urine Blood Negative (NEG) Urine Nitrite Negative (NEG) Urine Bilirubin Small (NEG) Urine Urobilinogen Dipstick 1.0 mg/dL (0.2 mg/dL) Urine Leukocyte Esterase Small (NEG) Urine RBC 0 /HPF (0-2) Urine WBC 5-10 /HPF (0-4) Urine Squamous Epithelial Cells Many /LPF Urine Amorphous Sediment Present /HPF Urine Bacteria Mod /HPF (0-FEW) Urine Hyaline Casts Many /HPF Urine Granular Casts Few /HPF Urine Mucus Marked /LPF Test 12/18/18 07:49 12/18/18 08:00 12/18/18 09:00 12/18/18 11:57 Sodium Level 138 mmol/L (136-145) Potassium Level 4.5 mmol/L (3.5-5.1) Chloride Level 102 mmol/L (98-107) Carbon Dioxide Level 21 mmol/L (21-32) Anion Gap 15 (6-14) Blood Urea Nitrogen 45 mg/dL (7-20) Creatinine 2.7 mg/dL (0.6-1.0) Estimated GFR (Cockcroft-Gault) 20.5 BUN/Creatinine Ratio 17 (6-20) Glucose Level 126 mg/dL (70-99) Calcium Level 9.2 mg/dL (8.5-10.1) Total Bilirubin 1.3 mg/dL (0.2-1.0) Aspartate Amino Transf (AST/SGOT) 27 U/L (15-37) Alanine Aminotransferase (ALT/SGPT) 21 U/L (14-59) Alkaline Phosphatase 60 U/L (46-116) Total Protein 8.2 g/dL (6.4-8.2) Albumin 3.5 g/dL (3.4-5.0) Albumin/Globulin Ratio 0.7 (1.0-1.7) Amylase Level 155 U/L (25-115) White Blood Count 12.4 x10^3/uL (4.0-11.0) Red Blood Count 4.35 x10^6/uL (3.50-5.40) Hemoglobin 13.4 g/dL (12.0-15.5) Hematocrit 40.6 % (36.0-47.0) Mean Corpuscular Volume 94 fL (79-100) Mean Corpuscular Hemoglobin 31 pg (25-35) Mean Corpuscular Hemoglobin Concent 33 g/dL (31-37) Red Cell Distribution Width 14.5 % (11.5-14.5) Platelet Count 167 x10^3/uL (140-400) Neutrophils (%) (Auto) 85 % (31-73) Lymphocytes (%) (Auto) 8 % (24-48) Monocytes (%) (Auto) 7 % (0-9) Eosinophils (%) (Auto) 0 % (0-3) Basophils (%) (Auto) 0 % (0-3) Neutrophils # (Auto) 10.5 x10^3/uL (1.8-7.7) Lymphocytes # (Auto) 1.0 x10^3/uL (1.0-4.8) Monocytes # (Auto) 0.8 x10^3/uL (0.0-1.1) Eosinophils # (Auto) 0.0 x10^3/uL (0.0-0.7) Basophils # (Auto) 0.0 x10^3/uL (0.0-0.2) Prothrombin Time 19.7 SEC (11.7-14.0) Prothromb Time International Ratio 1.7 (0.8-1.1) Glucose (Fingerstick) 107 mg/dL (70-99) Test 12/18/18 18:04 12/19/18 00:08 12/19/18 05:30 12/19/18 06:22 Glucose (Fingerstick) 116 mg/dL (70-99) 140 mg/dL (70-99) 138 mg/dL (70-99) White Blood Count 13.6 x10^3/uL (4.0-11.0) Red Blood Count 4.33 x10^6/uL (3.50-5.40) Hemoglobin 13.6 g/dL (12.0-15.5) Hematocrit 40.6 % (36.0-47.0) Mean Corpuscular Volume 94 fL (79-100) Mean Corpuscular Hemoglobin 31 pg (25-35) Mean Corpuscular Hemoglobin Concent 33 g/dL (31-37) Red Cell Distribution Width 14.3 % (11.5-14.5) Platelet Count 151 x10^3/uL (140-400) Neutrophils (%) (Auto) 89 % (31-73) Lymphocytes (%) (Auto) 6 % (24-48) Monocytes (%) (Auto) 6 % (0-9) Eosinophils (%) (Auto) 0 % (0-3) Basophils (%) (Auto) 0 % (0-3) Neutrophils # (Auto) 12.0 x10^3/uL (1.8-7.7) Lymphocytes # (Auto) 0.8 x10^3/uL (1.0-4.8) Monocytes # (Auto) 0.8 x10^3/uL (0.0-1.1) Eosinophils # (Auto) 0.0 x10^3/uL (0.0-0.7) Basophils # (Auto) 0.0 x10^3/uL (0.0-0.2) Prothrombin Time 19.9 SEC (11.7-14.0) Prothromb Time International Ratio 1.7 (0.8-1.1) Sodium Level 138 mmol/L (136-145) Potassium Level 4.0 mmol/L (3.5-5.1) Chloride Level 103 mmol/L (98-107) Carbon Dioxide Level 27 mmol/L (21-32) Anion Gap 8 (6-14) Blood Urea Nitrogen 48 mg/dL (7-20) Creatinine 2.5 mg/dL (0.6-1.0) Estimated GFR (Cockcroft-Gault) 22.4 BUN/Creatinine Ratio 19 (6-20) Glucose Level 117 mg/dL (70-99) Calcium Level 8.8 mg/dL (8.5-10.1) Total Bilirubin 1.3 mg/dL (0.2-1.0) Aspartate Amino Transf (AST/SGOT) 20 U/L (15-37) Alanine Aminotransferase (ALT/SGPT) 18 U/L (14-59) Alkaline Phosphatase 51 U/L (46-116) Total Protein 7.7 g/dL (6.4-8.2) Albumin 2.9 g/dL (3.4-5.0) Albumin/Globulin Ratio 0.6 (1.0-1.7) Amylase Level 70 U/L (25-115) Lipase 85 U/L (73-393) Test 12/19/18 07:23 Glucose (Fingerstick) 133 mg/dL (70-99) Laboratory Tests Test 12/18/18 09:00 12/18/18 11:57 12/18/18 18:04 12/19/18 00:08 Prothrombin Time 19.7 SEC (11.7-14.0) Prothromb Time International Ratio 1.7 (0.8-1.1) Glucose (Fingerstick) 107 mg/dL (70-99) 116 mg/dL (70-99) 140 mg/dL (70-99) Test 12/19/18 05:30 12/19/18 06:22 12/19/18 07:23 White Blood Count 13.6 x10^3/uL (4.0-11.0) Red Blood Count 4.33 x10^6/uL (3.50-5.40) Hemoglobin 13.6 g/dL (12.0-15.5) Hematocrit 40.6 % (36.0-47.0) Mean Corpuscular Volume 94 fL (79-100) Mean Corpuscular Hemoglobin 31 pg (25-35) Mean Corpuscular Hemoglobin Concent 33 g/dL (31-37) Red Cell Distribution Width 14.3 % (11.5-14.5) Platelet Count 151 x10^3/uL (140-400) Neutrophils (%) (Auto) 89 % (31-73) Lymphocytes (%) (Auto) 6 % (24-48) Monocytes (%) (Auto) 6 % (0-9) Eosinophils (%) (Auto) 0 % (0-3) Basophils (%) (Auto) 0 % (0-3) Neutrophils # (Auto) 12.0 x10^3/uL (1.8-7.7) Lymphocytes # (Auto) 0.8 x10^3/uL (1.0-4.8) Monocytes # (Auto) 0.8 x10^3/uL (0.0-1.1) Eosinophils # (Auto) 0.0 x10^3/uL (0.0-0.7) Basophils # (Auto) 0.0 x10^3/uL (0.0-0.2) Prothrombin Time 19.9 SEC (11.7-14.0) Prothromb Time International Ratio 1.7 (0.8-1.1) Sodium Level 138 mmol/L (136-145) Potassium Level 4.0 mmol/L (3.5-5.1) Chloride Level 103 mmol/L (98-107) Carbon Dioxide Level 27 mmol/L (21-32) Anion Gap 8 (6-14) Blood Urea Nitrogen 48 mg/dL (7-20) Creatinine 2.5 mg/dL (0.6-1.0) Estimated GFR (Cockcroft-Gault) 22.4 BUN/Creatinine Ratio 19 (6-20) Glucose Level 117 mg/dL (70-99) Calcium Level 8.8 mg/dL (8.5-10.1) Total Bilirubin 1.3 mg/dL (0.2-1.0) Aspartate Amino Transf (AST/SGOT) 20 U/L (15-37) Alanine Aminotransferase (ALT/SGPT) 18 U/L (14-59) Alkaline Phosphatase 51 U/L (46-116) Total Protein 7.7 g/dL (6.4-8.2) Albumin 2.9 g/dL (3.4-5.0) Albumin/Globulin Ratio 0.6 (1.0-1.7) Amylase Level 70 U/L (25-115) Lipase 85 U/L (73-393) Glucose (Fingerstick) 138 mg/dL (70-99) 133 mg/dL (70-99) Problem List Problems Medical Problems: (1) Epigastric pain Status: Acute (2) Epigastric pain Status: Acute (3) Nausea Status: Acute (4) Nausea Status: Acute (5) Small bowel obstruction Status: Acute JASMYN MYERS MD Dec 19, 2018 08:08
--- NOTE | 2018-12-19 09:04 | RAD ---
Examination: ACUTE ABDOMEN SERIES History: Small bowel obstruction Comparison/Correlation: 12/19/2018 abdomen obstruction series Findings: Frontal view chest was obtained. Supine upright views of the abdomen were obtained. Enteric tube is present terminating within the left upper quadrant. Cardiomegaly is present. Minimal discoid atelectasis is present. Left upper quadrant dilated small bowel loops are present with minimal decrease in interval. No extraluminal gas. No acute bony process. Impression: No new infiltrate. Minimal decrease in small bowel dissection. Electronically signed by: Asaf Hay MD (12/19/2018 9:01 AM) [facility]
[2018-12-19] MEDS ORDERED: PHYTONADIONE (VIT K1) IV 10 MG in IV DEXTROSE 5% 50 ML IV ONE (09:15)
--- NOTE | 2018-12-19 09:16 | PDOC ---
SURGICAL PROGRESS NOTE Subjective INR still elevated at 1.7, surgery cancelled for 12/19. Give Vit K in effort to correct INR and surgery rescheduled for 12/20. Clincially doing well with no acute abdomen or evidence of peritoneal irritation as today's x-rays shows slight improvement in obstruction. Believe this is the safest route to take at this point due to no evidence of GI compromise. Vital Signs Vital Signs Date Time Temp Pulse Resp B/P (MAP) Pulse Ox O2 Delivery O2 Flow Rate FiO2 12/19/18 07:16 93.0 105 20 121/59 (79) 93 Room Air 93.0 I&O Intake and Output 12/19/18 06:59 Intake Total 0 ml Output Total 1000 ml Balance -1000 ml Intake Oral 0 ml Output Urine Total 350 ml Gastric Drainage Total 500 ml Emesis 150 ml # Voids 1 Labs Laboratory Tests Test 12/17/18 12:32 12/17/18 18:24 12/18/18 00:12 12/18/18 03:30 Prothrombin Time 17.4 SEC (11.7-14.0) Prothromb Time International Ratio 1.5 (0.8-1.1) Sodium Level 141 mmol/L (136-145) Potassium Level 4.2 mmol/L (3.5-5.1) Chloride Level 103 mmol/L (98-107) Carbon Dioxide Level 23 mmol/L (21-32) Anion Gap 15 (6-14) Blood Urea Nitrogen 37 mg/dL (7-20) Creatinine 2.2 mg/dL (0.6-1.0) Estimated GFR (Cockcroft-Gault) 25.9 BUN/Creatinine Ratio 17 (6-20) Glucose Level 145 mg/dL (70-99) Calcium Level 9.1 mg/dL (8.5-10.1) Total Bilirubin 1.1 mg/dL (0.2-1.0) Aspartate Amino Transf (AST/SGOT) 25 U/L (15-37) Alanine Aminotransferase (ALT/SGPT) 27 U/L (14-59) Alkaline Phosphatase 65 U/L (46-116) Total Protein 8.5 g/dL (6.4-8.2) Albumin 3.7 g/dL (3.4-5.0) Albumin/Globulin Ratio 0.8 (1.0-1.7) Glucose (Fingerstick) 134 mg/dL (70-99) 128 mg/dL (70-99) Urine Collection Type Unknown Urine Color Jessica Urine Clarity Cloudy Urine pH 5.0 Urine Specific [place] 1.020 Urine Protein 100 mg/dL (NEG-TRACE) Urine Glucose (UA) Negative mg/dL (NEG) Urine Ketones (Stick) Negative mg/dL (NEG) Urine Blood Negative (NEG) Urine Nitrite Negative (NEG) Urine Bilirubin Small (NEG) Urine Urobilinogen Dipstick 1.0 mg/dL (0.2 mg/dL) Urine Leukocyte Esterase Small (NEG) Urine RBC 0 /HPF (0-2) Urine WBC 5-10 /HPF (0-4) Urine Squamous Epithelial Cells Many /LPF Urine Amorphous Sediment Present /HPF Urine Bacteria Mod /HPF (0-FEW) Urine Hyaline Casts Many /HPF Urine Granular Casts Few /HPF Urine Mucus Marked /LPF Test 12/18/18 07:49 12/18/18 08:00 12/18/18 09:00 12/18/18 11:57 Sodium Level 138 mmol/L (136-145) Potassium Level 4.5 mmol/L (3.5-5.1) Chloride Level 102 mmol/L (98-107) Carbon Dioxide Level 21 mmol/L (21-32) Anion Gap 15 (6-14) Blood Urea Nitrogen 45 mg/dL (7-20) Creatinine 2.7 mg/dL (0.6-1.0) Estimated GFR (Cockcroft-Gault) 20.5 BUN/Creatinine Ratio 17 (6-20) Glucose Level 126 mg/dL (70-99) Calcium Level 9.2 mg/dL (8.5-10.1) Total Bilirubin 1.3 mg/dL (0.2-1.0) Aspartate Amino Transf (AST/SGOT) 27 U/L (15-37) Alanine Aminotransferase (ALT/SGPT) 21 U/L (14-59) Alkaline Phosphatase 60 U/L (46-116) Total Protein 8.2 g/dL (6.4-8.2) Albumin 3.5 g/dL (3.4-5.0) Albumin/Globulin Ratio 0.7 (1.0-1.7) Amylase Level 155 U/L (25-115) White Blood Count 12.4 x10^3/uL (4.0-11.0) Red Blood Count 4.35 x10^6/uL (3.50-5.40) Hemoglobin 13.4 g/dL (12.0-15.5) Hematocrit 40.6 % (36.0-47.0) Mean Corpuscular Volume 94 fL (79-100) Mean Corpuscular Hemoglobin 31 pg (25-35) Mean Corpuscular Hemoglobin Concent 33 g/dL (31-37) Red Cell Distribution Width 14.5 % (11.5-14.5) Platelet Count 167 x10^3/uL (140-400) Neutrophils (%) (Auto) 85 % (31-73) Lymphocytes (%) (Auto) 8 % (24-48) Monocytes (%) (Auto) 7 % (0-9) Eosinophils (%) (Auto) 0 % (0-3) Basophils (%) (Auto) 0 % (0-3) Neutrophils # (Auto) 10.5 x10^3/uL (1.8-7.7) Lymphocytes # (Auto) 1.0 x10^3/uL (1.0-4.8) Monocytes # (Auto) 0.8 x10^3/uL (0.0-1.1) Eosinophils # (Auto) 0.0 x10^3/uL (0.0-0.7) Basophils # (Auto) 0.0 x10^3/uL (0.0-0.2) Prothrombin Time 19.7 SEC (11.7-14.0) Prothromb Time International Ratio 1.7 (0.8-1.1) Glucose (Fingerstick) 107 mg/dL (70-99) Test 12/18/18 18:04 12/19/18 00:08 12/19/18 05:30 12/19/18 06:22 Glucose (Fingerstick) 116 mg/dL (70-99) 140 mg/dL (70-99) 138 mg/dL (70-99) White Blood Count 13.6 x10^3/uL (4.0-11.0) Red Blood Count 4.33 x10^6/uL (3.50-5.40) Hemoglobin 13.6 g/dL (12.0-15.5) Hematocrit 40.6 % (36.0-47.0) Mean Corpuscular Volume 94 fL (79-100) Mean Corpuscular Hemoglobin 31 pg (25-35) Mean Corpuscular Hemoglobin Concent 33 g/dL (31-37) Red Cell Distribution Width 14.3 % (11.5-14.5) Platelet Count 151 x10^3/uL (140-400) Neutrophils (%) (Auto) 89 % (31-73) Lymphocytes (%) (Auto) 6 % (24-48) Monocytes (%) (Auto) 6 % (0-9) Eosinophils (%) (Auto) 0 % (0-3) Basophils (%) (Auto) 0 % (0-3) Neutrophils # (Auto) 12.0 x10^3/uL (1.8-7.7) Lymphocytes # (Auto) 0.8 x10^3/uL (1.0-4.8) Monocytes # (Auto) 0.8 x10^3/uL (0.0-1.1) Eosinophils # (Auto) 0.0 x10^3/uL (0.0-0.7) Basophils # (Auto) 0.0 x10^3/uL (0.0-0.2) Prothrombin Time 19.9 SEC (11.7-14.0) Prothromb Time International Ratio 1.7 (0.8-1.1) Sodium Level 138 mmol/L (136-145) Potassium Level 4.0 mmol/L (3.5-5.1) Chloride Level 103 mmol/L (98-107) Carbon Dioxide Level 27 mmol/L (21-32) Anion Gap 8 (6-14) Blood Urea Nitrogen 48 mg/dL (7-20) Creatinine 2.5 mg/dL (0.6-1.0) Estimated GFR (Cockcroft-Gault) 22.4 BUN/Creatinine Ratio 19 (6-20) Glucose Level 117 mg/dL (70-99) Calcium Level 8.8 mg/dL (8.5-10.1) Total Bilirubin 1.3 mg/dL (0.2-1.0) Aspartate Amino Transf (AST/SGOT) 20 U/L (15-37) Alanine Aminotransferase (ALT/SGPT) 18 U/L (14-59) Alkaline Phosphatase 51 U/L (46-116) Total Protein 7.7 g/dL (6.4-8.2) Albumin 2.9 g/dL (3.4-5.0) Albumin/Globulin Ratio 0.6 (1.0-1.7) Amylase Level 70 U/L (25-115) Lipase 85 U/L (73-393) Test 12/19/18 07:23 Glucose (Fingerstick) 133 mg/dL (70-99) Laboratory Tests Test 12/18/18 11:57 12/18/18 18:04 12/19/18 00:08 12/19/18 05:30 Glucose (Fingerstick) 107 mg/dL (70-99) 116 mg/dL (70-99) 140 mg/dL (70-99) White Blood Count 13.6 x10^3/uL (4.0-11.0) Red Blood Count 4.33 x10^6/uL (3.50-5.40) Hemoglobin 13.6 g/dL (12.0-15.5) Hematocrit 40.6 % (36.0-47.0) Mean Corpuscular Volume 94 fL (79-100) Mean Corpuscular Hemoglobin 31 pg (25-35) Mean Corpuscular Hemoglobin Concent 33 g/dL (31-37) Red Cell Distribution Width 14.3 % (11.5-14.5) Platelet Count 151 x10^3/uL (140-400) Neutrophils (%) (Auto) 89 % (31-73) Lymphocytes (%) (Auto) 6 % (24-48) Monocytes (%) (Auto) 6 % (0-9) Eosinophils (%) (Auto) 0 % (0-3) Basophils (%) (Auto) 0 % (0-3) Neutrophils # (Auto) 12.0 x10^3/uL (1.8-7.7) Lymphocytes # (Auto) 0.8 x10^3/uL (1.0-4.8) Monocytes # (Auto) 0.8 x10^3/uL (0.0-1.1) Eosinophils # (Auto) 0.0 x10^3/uL (0.0-0.7) Basophils # (Auto) 0.0 x10^3/uL (0.0-0.2) Prothrombin Time 19.9 SEC (11.7-14.0) Prothromb Time International Ratio 1.7 (0.8-1.1) Sodium Level 138 mmol/L (136-145) Potassium Level 4.0 mmol/L (3.5-5.1) Chloride Level 103 mmol/L (98-107) Carbon Dioxide Level 27 mmol/L (21-32) Anion Gap 8 (6-14) Blood Urea Nitrogen 48 mg/dL (7-20) Creatinine 2.5 mg/dL (0.6-1.0) Estimated GFR (Cockcroft-Gault) 22.4 BUN/Creatinine Ratio 19 (6-20) Glucose Level 117 mg/dL (70-99) Calcium Level 8.8 mg/dL (8.5-10.1) Total Bilirubin 1.3 mg/dL (0.2-1.0) Aspartate Amino Transf (AST/SGOT) 20 U/L (15-37) Alanine Aminotransferase (ALT/SGPT) 18 U/L (14-59) Alkaline Phosphatase 51 U/L (46-116) Total Protein 7.7 g/dL (6.4-8.2) Albumin 2.9 g/dL (3.4-5.0) Albumin/Globulin Ratio 0.6 (1.0-1.7) Amylase Level 70 U/L (25-115) Lipase 85 U/L (73-393) Test 12/19/18 06:22 12/19/18 07:23 Glucose (Fingerstick) 138 mg/dL (70-99) 133 mg/dL (70-99) Problem List Problems Medical Problems: (1) Epigastric pain Status: Acute (2) Epigastric pain Status: Acute (3) Nausea Status: Acute (4) Nausea Status: Acute (5) Small bowel obstruction Status: Acute JASMYN MYERS MD Dec 19, 2018 09:16
--- NOTE | 2018-12-19 09:31 | PDOC ---
SUBJECTIVE ROS Stable OBJECTIVE Vital Signs Vital Signs Date Time Temp Pulse Resp B/P (MAP) Pulse Ox O2 Delivery O2 Flow Rate FiO2 12/19/18 07:16 93.0 105 20 121/59 (79) 93 Room Air 93.0 I & 0 Intake and Output 12/19/18 07:00 Intake Total 0 ml Output Total 1000 ml Balance -1000 ml Intake Oral 0 ml Output Urine Total 350 ml Gastric Drainage Total 500 ml Emesis 150 ml # Voids 1 PHYSICAL EXAM Physical Exam GEN- NAD HEENT: OM dry , NG tube NECK: supple HEART RRR LUNGS: Clear, Non labored ABDOMEN: Soft, obese. epigastric tenderness, but no guarding EXTREMITIES: NO LE edema SKIN: No rashes. NEUROLOGICAL: Grossly tory; - Sethi+, No CVA or SP tenderness DIAGNOSIS/ASSESSMENT Assessment & Plan WILLIAMS - Suspect ATN 2//2 Poor Po intake, Vomiting, SBO , UA unremarkable, Renal US Unremarkable , renal function stable E-Lytes Stable, holding losartan Urinary retention Bladder scan with significant PVR- Now has sethi NG output significant, IVF suppportive care, Strict I/O ,avoid Nephrotoxins, Monitor CKD stage 3 - Follows with Dr. Cavanaugh Q 6 months Will Obtain labs from our office Solitary Kidney - S/P Lt Nephrectomy SBO- surgery cancelled this am due to INR above goal per GS HTN- Hold antihypertensives if BP low Chronic atrial fibrillation, on Coumadin Chronic gout. COMMENT/RELEVANT DATA Meds Current Medications Medications (Trade) Dose Ordered Sig/Nimco Start Time Stop Time Status Last Admin Dose Admin Acetaminophen (Tylenol Supp) 650 mg PRN Q6HRS PRN 12/17/18 10:00 Acetaminophen (Tylenol) 650 mg PRN Q4HRS PRN 12/16/18 15:15 12/17/18 15:14 DC Bupivacaine HCl/ Epinephrine Bitart (Sensorcain-Epi 0.5%-1:[id number] Mpf) 30 ml 1X ONCE 12/19/18 06:00 12/19/18 06:01 DC Ceftriaxone Sodium (Rocephin) 1 gm Q24H 12/18/18 11:00 12/18/18 12:57 1 GM Clonidine HCl (Catapres) 0.1 mg 1X ONCE 12/16/18 14:15 12/16/18 14:16 DC 12/16/18 15:12 0.1 MG Dextrose/Sodium Chloride 1,000 ml @ 150 mls/hr Q6H40M 12/18/18 10:30 12/18/18 21:15 100 MLS/HR Enoxaparin Sodium (Lovenox 100mg Syringe) 100 mg DAILY 12/17/18 10:30 12/19/18 09:14 DC 12/17/18 12:49 100 MG Fentanyl Citrate (Fentanyl 2ml Vial) 50 mcg PRN Q5MIN PRN 12/19/18 07:00 12/20/18 06:59 Hydralazine HCl (Apresoline Inj) 10 mg PRN Q6HRS PRN 12/17/18 01:00 12/18/18 15:08 10 MG Hydromorphone HCl (Dilaudid) 0.5 mg PRN Q10MIN PRN 12/19/18 07:00 12/20/18 06:59 Info (Anti-Coagulation Monitoring By Pharmacy) 1 each PRN DAILY PRN 12/17/18 10:15 12/18/18 10:42 1 EACH Insulin Human Lispro (HumaLOG) 0-6 UNITS BG 300-399... Q6HRS 12/17/18 12:00 12/17/18 10:24 DC Lidocaine HCl (Xylocaine-Mpf 1% 2ml Vial) 2 ml PRN 1X PRN 12/19/18 07:00 12/20/18 06:59 Morphine Sulfate (Morphine Sulfate) 1 mg PRN Q10MIN PRN 12/19/18 07:00 12/20/18 06:59 Ondansetron HCl (Zofran) 4 mg PRN Q6HRS PRN 12/19/18 07:00 12/20/18 06:59 Pantoprazole Sodium (PROTONIX VIAL for IV PUSH) 40 mg DAILYAC 12/17/18 10:30 12/18/18 12:56 40 MG Phytonadione 10 mg/Dextrose 51 ml @ 102 mls/hr 1X ONCE 12/19/18 09:15 12/19/18 09:44 Potassium Chloride/Dextrose/ Sod Cl 1,000 ml @ 100 mls/hr Q10H 12/16/18 17:00 12/18/18 10:34 DC 12/18/18 01:27 80 MLS/HR Prochlorperazine Edisylate (Compazine) 5 mg PACU PRN PRN 12/19/18 07:00 12/20/18 06:59 Ringer's Solution 1,000 ml @ 30 mls/hr Q24H 12/19/18 07:00 12/19/18 18:59 Sodium Chloride 1,000 ml @ 125 mls/hr Q8H 12/16/18 15:10 12/16/18 17:26 DC Lab Laboratory Tests Test 12/18/18 11:57 12/18/18 18:04 12/19/18 00:08 12/19/18 05:30 Glucose (Fingerstick) 107 mg/dL (70-99) 116 mg/dL (70-99) 140 mg/dL (70-99) White Blood Count 13.6 x10^3/uL (4.0-11.0) Red Blood Count 4.33 x10^6/uL (3.50-5.40) Hemoglobin 13.6 g/dL (12.0-15.5) Hematocrit 40.6 % (36.0-47.0) Mean Corpuscular Volume 94 fL (79-100) Mean Corpuscular Hemoglobin 31 pg (25-35) Mean Corpuscular Hemoglobin Concent 33 g/dL (31-37) Red Cell Distribution Width 14.3 % (11.5-14.5) Platelet Count 151 x10^3/uL (140-400) Neutrophils (%) (Auto) 89 % (31-73) Lymphocytes (%) (Auto) 6 % (24-48) Monocytes (%) (Auto) 6 % (0-9) Eosinophils (%) (Auto) 0 % (0-3) Basophils (%) (Auto) 0 % (0-3) Neutrophils # (Auto) 12.0 x10^3/uL (1.8-7.7) Lymphocytes # (Auto) 0.8 x10^3/uL (1.0-4.8) Monocytes # (Auto) 0.8 x10^3/uL (0.0-1.1) Eosinophils # (Auto) 0.0 x10^3/uL (0.0-0.7) Basophils # (Auto) 0.0 x10^3/uL (0.0-0.2) Prothrombin Time 19.9 SEC (11.7-14.0) Prothromb Time International Ratio 1.7 (0.8-1.1) Sodium Level 138 mmol/L (136-145) Potassium Level 4.0 mmol/L (3.5-5.1) Chloride Level 103 mmol/L (98-107) Carbon Dioxide Level 27 mmol/L (21-32) Anion Gap 8 (6-14) Blood Urea Nitrogen 48 mg/dL (7-20) Creatinine 2.5 mg/dL (0.6-1.0) Estimated GFR (Cockcroft-Gault) 22.4 BUN/Creatinine Ratio 19 (6-20) Glucose Level 117 mg/dL (70-99) Calcium Level 8.8 mg/dL (8.5-10.1) Total Bilirubin 1.3 mg/dL (0.2-1.0) Aspartate Amino Transf (AST/SGOT) 20 U/L (15-37) Alanine Aminotransferase (ALT/SGPT) 18 U/L (14-59) Alkaline Phosphatase 51 U/L (46-116) Total Protein 7.7 g/dL (6.4-8.2) Albumin 2.9 g/dL (3.4-5.0) Albumin/Globulin Ratio 0.6 (1.0-1.7) Amylase Level 70 U/L (25-115) Lipase 85 U/L (73-393) Test 12/19/18 06:22 12/19/18 07:23 Glucose (Fingerstick) 138 mg/dL (70-99) 133 mg/dL (70-99) Results All relevant outside records, renal labs, imaging studies, telemetry/EKG's were reviewed. RUBEN RUCKER MD Dec 19, 2018 09:31
[2018-12-19 09:33] LABS: % EOS 1 % (0-5); % LYMPHS 13 % (24-48); % MONOS 6 % (0-10); % SEGS 80 % (35-66)
[2018-12-19 09:34] LABS: PLT ESTIMATE ADEQUATE (ADEQUATE)
--- NOTE | 2018-12-19 09:40 | CARD ---
MR#: [id number] Date of Study: 12/18/2018 Ordering Physician: LAURA CROOKS, Referring Physician: LAURA CROOKS, Tech: Katlin Al APPROVED REPORT EXAM: Two-dimensional and M-mode echocardiogram with Doppler and color Doppler. Other Information Quality : AverageHR: 110bpm Rhythm : Atrial FibrillationTechnically limited study due to body habitus. INDICATION Atrial Fibrillation RISK FACTORS Hypertension 2D DIMENSIONS RVDd2.7 (2.9-3.5cm)Left Atrium(2D)5.1 (1.6-4.0cm) IVSd1.6 (0.7-1.1cm)Aortic Root(2D)2.9 (2.0-3.7cm) LVDd4.5 (3.9-5.9cm)PWd1.4 (0.7-1.1cm) LVDs2.4 (2.5-4.0cm)FS (%) 45.8 % SV72.1 mlLVEF(%)77.3 (>50%) Aortic Valve AoV Peak Dann.167.3cm/sAoV VTI20.8cm AO Peak GR.11.2mmHgLVOT VTI 9.26cm AO Mean GR.5mmHgAI P 1/2 [id number] Mitral Valve MV E Cramqblj76.0cm/s TDI Lateral E' P. V11.84cm/sMedial E' P. V10.36cm/s E/Lateral E'7.4E/Medial E'8.5 Tricuspid Valve TR P. [id number]/sRAP [id number] TR Peak Gr.[id number] Pulmonary Vein S1 Gnhtyqgq53.5cm/sS2 Bkdhvoek87.79cm/s D2 Itzltqkk10.8cm/s LEFT VENTRICLE The left ventricle is normal size. There is moderate concentric left ventricular hypertrophy. The lef t ventricular systolic function is normal. The Ejection Fraction is 55-60%. Wall motion consistent wi th conduction abnormality. Diastology indeterminate due to atrial fibrillation. RIGHT VENTRICLE The right ventricle is borderline dilated. There is normal right ventricular wall thickness. The righ t ventricular systolic function is normal. ATRIA The left atrium is severely dilated. The right atrium is severely dilated. The interatrial septum is intact with no evidence for an atrial septal defect or patent foramen ovale as noted on 2-D or Dopple r imaging. AORTIC VALVE The aortic valve is calcified but opens well. Doppler and Color Flow revealed mild aortic regurgitati on. There is no significant aortic valvular stenosis. MITRAL VALVE The mitral valve is normal in structure and function. There is no evidence of mitral valve prolapse. There is no mitral valve stenosis. Doppler and Color-flow revealed trace mitral regurgitation. TRICUSPID VALVE The tricuspid valve is normal in structure and function. Doppler and Color Flow revealed trace to mil d tricuspid regurgitation with an estimated PAP of 61 mmHg. There is no tricuspid valve stenosis. PULMONIC VALVE The pulmonic valve is not well visualized. Doppler and Color Flow revealed trace pulmonic valvular re gurgitation. GREAT VESSELS The aortic root is normal in size. The IVC is normal in size and collapses >50% with inspiration. PERICARDIAL EFFUSION There is no evidence of significant pericardial effusion. Critical Notification Critical Value: No <Conclusion> The left ventricular systolic function is normal. The Ejection Fraction is 55-60%. The left atrium is severely dilated. Mild aortic regurgitation. Trace mitral regurgitation. Trace to mild tricuspid regurgitation with an estimated PAP of 61 mmHg. There is no evidence of significant pericardial effusion. Signed by : Tristan Cowan, Electronically Approved : 12/19/2018 09:39:41
[2018-12-19] MEDS: IV DEXTROSE 5 %-0.45 % NACL 1,000 ML IV SCH ×3 (09:43→20:40)
[2018-12-19] MEDS: PANTOPRAZOLE IV PUSH 40 MG VIAL. IVP SCH (09:43)
--- NOTE | 2018-12-19 10:29 | PDOC ---
PROGRESS NOTES Subjective Subjective complains of some epigastric pain. NG tube in position. iv fluids increased by nephrology. renal ultrasound shows left nephrectomy and no hydronephrosis. . has leukocytosis and will consult ID. will consult GI concerning epigastric abdominal pain and small bowel dilatation and evaluate need for surgery tomorrow. lab reviewed. urine culture pending. has l ow grade feverm t max 99.4 earlier today. family present in room. Objective Objective Vital Signs Date Time Temp Pulse Resp B/P (MAP) Pulse Ox O2 Delivery O2 Flow Rate FiO2 12/19/18 08:00 Room Air 12/19/18 07:16 93.0 105 20 121/59 (79) 93 93.0 Intake and Output 12/19/18 07:00 Intake Total 0 ml Output Total 1000 ml Balance -1000 ml Intake Oral 0 ml Output Urine Total 350 ml Gastric Drainage Total 500 ml Emesis 150 ml # Voids 1 Physical Exam Abdomen: Soft, Other (mild epigastric tenderness. no guarding. obese. bowel sounds heard) Heart: Normal S1, Normal S2 Extremities: No edema General: Alert HEENT: Atraumatic Lungs: Clear to auscultation Neuro: Normal speech Psych/Mental Status: Mental status NL Skin: No rashes Assessment Assessment Problems1. Suspect partial small-bowel obstruction.vs. ileus 2. Acute kidney injury on top of chronic kidney disease stage 3.secondary to decrease oral fluids and vomiting 3. Hypertension. 4. Hyperlipidemia. 5. Chronic atrial fibrillation. off of anticoagulation for possible surgery tomorrow per dr. joshi 6. Chronic gout. 7. History of a left nephrectomy. pyuria low grade fever mild leukocytosis Medical Problems: (1) Epigastric pain Status: Acute (2) Epigastric pain Status: Acute (3) Nausea Status: Acute (4) Nausea Status: Acute (5) Small bowel obstruction Status: Acute Plan Plan of Care consult ID for leukocytosis consult dr. Nicole GI to evaluate epigastric abdominal pain and small bowel dilatation and opinion on whether to proceed with surgery tomorrow discussed consults with patient and family at bedside and her nurse continue iv rocephin NPO iv fluids per nephrology NG suction labs tomorrow scd for dvt prophylaxis continue iv protonix Comment Review of Relevant I have reviewed the following items rubia (where applicable) has been applied. Labs Laboratory Tests Test 12/17/18 12:32 12/17/18 18:24 12/18/18 00:12 12/18/18 03:30 Prothrombin Time 17.4 SEC (11.7-14.0) Prothromb Time International Ratio 1.5 (0.8-1.1) Sodium Level 141 mmol/L (136-145) Potassium Level 4.2 mmol/L (3.5-5.1) Chloride Level 103 mmol/L (98-107) Carbon Dioxide Level 23 mmol/L (21-32) Anion Gap 15 (6-14) Blood Urea Nitrogen 37 mg/dL (7-20) Creatinine 2.2 mg/dL (0.6-1.0) Estimated GFR (Cockcroft-Gault) 25.9 BUN/Creatinine Ratio 17 (6-20) Glucose Level 145 mg/dL (70-99) Calcium Level 9.1 mg/dL (8.5-10.1) Total Bilirubin 1.1 mg/dL (0.2-1.0) Aspartate Amino Transf (AST/SGOT) 25 U/L (15-37) Alanine Aminotransferase (ALT/SGPT) 27 U/L (14-59) Alkaline Phosphatase 65 U/L (46-116) Total Protein 8.5 g/dL (6.4-8.2) Albumin 3.7 g/dL (3.4-5.0) Albumin/Globulin Ratio 0.8 (1.0-1.7) Glucose (Fingerstick) 134 mg/dL (70-99) 128 mg/dL (70-99) Urine Collection Type Unknown Urine Color Jessica Urine Clarity Cloudy Urine pH 5.0 Urine Specific [place] 1.020 Urine Protein 100 mg/dL (NEG-TRACE) Urine Glucose (UA) Negative mg/dL (NEG) Urine Ketones (Stick) Negative mg/dL (NEG) Urine Blood Negative (NEG) Urine Nitrite Negative (NEG) Urine Bilirubin Small (NEG) Urine Urobilinogen Dipstick 1.0 mg/dL (0.2 mg/dL) Urine Leukocyte Esterase Small (NEG) Urine RBC 0 /HPF (0-2) Urine WBC 5-10 /HPF (0-4) Urine Squamous Epithelial Cells Many /LPF Urine Amorphous Sediment Present /HPF Urine Bacteria Mod /HPF (0-FEW) Urine Hyaline Casts Many /HPF Urine Granular Casts Few /HPF Urine Mucus Marked /LPF Test 12/18/18 07:49 10/21/19 08:00 12/18/18 09:00 12/18/18 11:57 Sodium Level 138 mmol/L (136-145) Potassium Level 4.5 mmol/L (3.5-5.1) Chloride Level 102 mmol/L (98-107) Carbon Dioxide Level 21 mmol/L (21-32) Anion Gap 15 (6-14) Blood Urea Nitrogen 45 mg/dL (7-20) Creatinine 2.7 mg/dL (0.6-1.0) Estimated GFR (Cockcroft-Gault) 20.5 BUN/Creatinine Ratio 17 (6-20) Glucose Level 126 mg/dL (70-99) Calcium Level 9.2 mg/dL (8.5-10.1) Total Bilirubin 1.3 mg/dL (0.2-1.0) Aspartate Amino Transf (AST/SGOT) 27 U/L (15-37) Alanine Aminotransferase (ALT/SGPT) 21 U/L (14-59) Alkaline Phosphatase 60 U/L (46-116) Total Protein 8.2 g/dL (6.4-8.2) Albumin 3.5 g/dL (3.4-5.0) Albumin/Globulin Ratio 0.7 (1.0-1.7) Amylase Level 155 U/L (25-115) White Blood Count 12.4 x10^3/uL (4.0-11.0) Red Blood Count 4.35 x10^6/uL (3.50-5.40) Hemoglobin 13.4 g/dL (12.0-15.5) Hematocrit 40.6 % (36.0-47.0) Mean Corpuscular Volume 94 fL (79-100) Mean Corpuscular Hemoglobin 31 pg (25-35) Mean Corpuscular Hemoglobin Concent 33 g/dL (31-37) Red Cell Distribution Width 14.5 % (11.5-14.5) Platelet Count 167 x10^3/uL (140-400) Neutrophils (%) (Auto) 85 % (31-73) Lymphocytes (%) (Auto) 8 % (24-48) Monocytes (%) (Auto) 7 % (0-9) Eosinophils (%) (Auto) 0 % (0-3) Basophils (%) (Auto) 0 % (0-3) Neutrophils # (Auto) 10.5 x10^3/uL (1.8-7.7) Lymphocytes # (Auto) 1.0 x10^3/uL (1.0-4.8) Monocytes # (Auto) 0.8 x10^3/uL (0.0-1.1) Eosinophils # (Auto) 0.0 x10^3/uL (0.0-0.7) Basophils # (Auto) 0.0 x10^3/uL (0.0-0.2) Prothrombin Time 19.7 SEC (11.7-14.0) Prothromb Time International Ratio 1.7 (0.8-1.1) Glucose (Fingerstick) 107 mg/dL (70-99) Test 12/18/18 18:04 12/19/18 00:08 12/19/18 05:30 12/19/18 06:22 Glucose (Fingerstick) 116 mg/dL (70-99) 140 mg/dL (70-99) 138 mg/dL (70-99) White Blood Count 13.6 x10^3/uL (4.0-11.0) Red Blood Count 4.33 x10^6/uL (3.50-5.40) Hemoglobin 13.6 g/dL (12.0-15.5) Hematocrit 40.6 % (36.0-47.0) Mean Corpuscular Volume 94 fL (79-100) Mean Corpuscular Hemoglobin 31 pg (25-35) Mean Corpuscular Hemoglobin Concent 33 g/dL (31-37) Red Cell Distribution Width 14.3 % (11.5-14.5) Platelet Count 151 x10^3/uL (140-400) Neutrophils (%) (Auto) 89 % (31-73) Lymphocytes (%) (Auto) 6 % (24-48) Monocytes (%) (Auto) 6 % (0-9) Eosinophils (%) (Auto) 0 % (0-3) Basophils (%) (Auto) 0 % (0-3) Neutrophils # (Auto) 12.0 x10^3/uL (1.8-7.7) Lymphocytes # (Auto) 0.8 x10^3/uL (1.0-4.8) Monocytes # (Auto) 0.8 x10^3/uL (0.0-1.1) Eosinophils # (Auto) 0.0 x10^3/uL (0.0-0.7) Basophils # (Auto) 0.0 x10^3/uL (0.0-0.2) Segmented Neutrophils % 80 % (35-66) Lymphocytes % 13 % (24-48) Monocytes % 6 % (0-10) Eosinophils % 1 % (0-5) Platelet Estimate Adequate (ADEQUATE) Prothrombin Time 19.9 SEC (11.7-14.0) Prothromb Time International Ratio 1.7 (0.8-1.1) Sodium Level 138 mmol/L (136-145) Potassium Level 4.0 mmol/L (3.5-5.1) Chloride Level 103 mmol/L (98-107) Carbon Dioxide Level 27 mmol/L (21-32) Anion Gap 8 (6-14) Blood Urea Nitrogen 48 mg/dL (7-20) Creatinine 2.5 mg/dL (0.6-1.0) Estimated GFR (Cockcroft-Gault) 22.4 BUN/Creatinine Ratio 19 (6-20) Glucose Level 117 mg/dL (70-99) Calcium Level 8.8 mg/dL (8.5-10.1) Total Bilirubin 1.3 mg/dL (0.2-1.0) Aspartate Amino Transf (AST/SGOT) 20 U/L (15-37) Alanine Aminotransferase (ALT/SGPT) 18 U/L (14-59) Alkaline Phosphatase 51 U/L (46-116) Total Protein 7.7 g/dL (6.4-8.2) Albumin 2.9 g/dL (3.4-5.0) Albumin/Globulin Ratio 0.6 (1.0-1.7) Amylase Level 70 U/L (25-115) Lipase 85 U/L (73-393) Test 12/19/18 07:23 Glucose (Fingerstick) 133 mg/dL (70-99) Laboratory Tests Test 12/18/18 11:57 12/18/18 18:04 12/19/18 00:08 12/19/18 05:30 Glucose (Fingerstick) 107 mg/dL (70-99) 116 mg/dL (70-99) 140 mg/dL (70-99) White Blood Count 13.6 x10^3/uL (4.0-11.0) Red Blood Count 4.33 x10^6/uL (3.50-5.40) Hemoglobin 13.6 g/dL (12.0-15.5) Hematocrit 40.6 % (36.0-47.0) Mean Corpuscular Volume 94 fL (79-100) Mean Corpuscular Hemoglobin 31 pg (25-35) Mean Corpuscular Hemoglobin Concent 33 g/dL (31-37) Red Cell Distribution Width 14.3 % (11.5-14.5) Platelet Count 151 x10^3/uL (140-400) Neutrophils (%) (Auto) 89 % (31-73) Lymphocytes (%) (Auto) 6 % (24-48) Monocytes (%) (Auto) 6 % (0-9) Eosinophils (%) (Auto) 0 % (0-3) Basophils (%) (Auto) 0 % (0-3) Neutrophils # (Auto) 12.0 x10^3/uL (1.8-7.7) Lymphocytes # (Auto) 0.8 x10^3/uL (1.0-4.8) Monocytes # (Auto) 0.8 x10^3/uL (0.0-1.1) Eosinophils # (Auto) 0.0 x10^3/uL (0.0-0.7) Basophils # (Auto) 0.0 x10^3/uL (0.0-0.2) Segmented Neutrophils % 80 % (35-66) Lymphocytes % 13 % (24-48) Monocytes % 6 % (0-10) Eosinophils % 1 % (0-5) Platelet Estimate Adequate (ADEQUATE) Prothrombin Time 19.9 SEC (11.7-14.0) Prothromb Time International Ratio 1.7 (0.8-1.1) Sodium Level 138 mmol/L (136-145) Potassium Level 4.0 mmol/L (3.5-5.1) Chloride Level 103 mmol/L (98-107) Carbon Dioxide Level 27 mmol/L (21-32) Anion Gap 8 (6-14) Blood Urea Nitrogen 48 mg/dL (7-20) Creatinine 2.5 mg/dL (0.6-1.0) Estimated GFR (Cockcroft-Gault) 22.4 BUN/Creatinine Ratio 19 (6-20) Glucose Level 117 mg/dL (70-99) Calcium Level 8.8 mg/dL (8.5-10.1) Total Bilirubin 1.3 mg/dL (0.2-1.0) Aspartate Amino Transf (AST/SGOT) 20 U/L (15-37) Alanine Aminotransferase (ALT/SGPT) 18 U/L (14-59) Alkaline Phosphatase 51 U/L (46-116) Total Protein 7.7 g/dL (6.4-8.2) Albumin 2.9 g/dL (3.4-5.0) Albumin/Globulin Ratio 0.6 (1.0-1.7) Amylase Level 70 U/L (25-115) Lipase 85 U/L (73-393) Test 12/19/18 06:22 12/19/18 07:23 Glucose (Fingerstick) 138 mg/dL (70-99) 133 mg/dL (70-99) Medications Current Medications Ondansetron HCl (Zofran) 4 mg 1X ONCE IM ; Start 12/16/18 at 09:30; Stop 12/16/18 at 09:31; Status DC Fentanyl Citrate (Fentanyl 2ml Vial) 75 mcg 1X ONCE IVP Last administered on 12/16/18at 09:46; Start 12/16/18 at 09:45; Stop 12/16/18 at 09:46; Status DC Ondansetron HCl (Zofran) 4 mg 1X ONCE IVP Last administered on 12/16/18at 09:51; Start 12/16/18 at 10:00; Stop 12/16/18 at 10:01; Status DC Sodium Chloride 1,000 ml @ 1,000 mls/hr 1X ONCE IV Last administered on 12/16/18at 10:40; Start 12/16/18 at 10:15; Stop 12/16/18 at 11:14; Status DC Clonidine HCl (Catapres) 0.1 mg 1X ONCE PO Last administered on 12/16/18at 15:12; Start 12/16/18 at 14:15; Stop 12/16/18 at 14:16; Status DC Fentanyl Citrate (Fentanyl 2ml Vial) 75 mcg 1X ONCE IVP ; Start 12/16/18 at 15:15; Stop 12/16/18 at 15:16; Status DC Ondansetron HCl (Zofran) 4 mg PRN Q8HRS PRN IV NAUSEA/VOMITING; Start 12/16/18 at 15:15; Stop 12/16/18 at 17:10; Status DC Fentanyl Citrate (Fentanyl 2ml Vial) 50 mcg PRN Q1HR PRN IV PAIN Last administered on 12/17/18at 07:28; Start 12/16/18 at 15:15; Stop 12/17/18 at 15:14; Status DC Sodium Chloride 1,000 ml @ 125 mls/hr Q8H IV ; Start 12/16/18 at 15:10; Stop 12/16/18 at 17:26; Status DC Acetaminophen (Tylenol) 650 mg PRN Q4HRS PRN PO FEVER; Start 12/16/18 at 15:15; Stop 12/17/18 at 15:14; Status DC Potassium Chloride/Dextrose/ Sod Cl 1,000 ml @ 100 mls/hr Q10H IV Last administered on 12/18/18at 01:27; Start 12/16/18 at 17:00; Stop 12/18/18 at 10:34; Status DC Ondansetron HCl (Zofran) 4 mg PRN Q6HRS PRN IVP NAUSEA/VOMITING Last administered on 12/18/18at 21:17; Start 12/16/18 at 17:00 Hydralazine HCl (Apresoline Inj) 10 mg PRN Q6HRS PRN IVP ELEVATED BP, SEE COMMENTS Last administered on 12/18/18at 15:08; Start 12/17/18 at 01:00 Enoxaparin Sodium (Lovenox 100mg Syringe) 100 mg DAILY SQ Last administered on 12/17/18 12:49; Start 12/17/18 at 10:30; Stop 12/19/18 at 09:14; Status DC Info (Anti-Coagulation Monitoring By Pharmacy) 1 each PRN DAILY PRN MC SEE COMMENTS Last administered on 12/18/18at 10:42; Start 12/17/18 at 10:15 Pantoprazole Sodium (PROTONIX VIAL for IV PUSH) 40 mg DAILYAC IVP Last administered on 12/19/18at 09:43; Start 12/17/18 at 10:30 Acetaminophen (Tylenol Supp) 650 mg PRN Q6HRS PRN NC HEADACHE / TEMP; Start 12/17/18 at 10:00 Fentanyl Citrate (Fentanyl 2ml Vial) 50 mcg PRN Q4HRS PRN IVP PAIN Last administered on 12/18/18at 21:18; Start 12/17/18 at 10:00 Insulin Human Lispro (HumaLOG) 0-6 UNITS BG 300-399... Q6HRS SQ ; Start 12/17/18 at 12:00; Stop 12/17/18 at 10:24; Status DC Ceftriaxone Sodium (Rocephin) 1 gm Q24H IVP Last administered on 12/18/18at 12:57; Start 12/18/18 at 11:00 Dextrose/Sodium Chloride 1,000 ml @ 150 mls/hr Q6H40M IV Last administered on 12/19/18at 09:43; Start 12/18/18 at 10:30 Bupivacaine HCl/ Epinephrine Bitart (Sensorcain-Epi 0.5%-1:211088 Mpf) 30 ml 1X ONCE INJ ; Start 12/18/18 at 15:00; Stop 12/18/18 at 15:01; Status Cancel Bupivacaine HCl/ Epinephrine Bitart (Sensorcain-Epi 0.5%-1:672748 Mpf) 30 ml 1X ONCE INJ ; Start 12/19/18 at 06:00; Stop 12/19/18 at 06:01; Status DC Ondansetron HCl (Zofran) 4 mg PRN Q6HRS PRN IV NAUSEA/VOMITING; Start 12/19/18 at 07:00; Stop 12/20/18 at 06:59 Fentanyl Citrate (Fentanyl 2ml Vial) 25 mcg PRN Q5MIN PRN IV MILD PAIN 1-3; Start 12/19/18 at 07:00; Stop 12/20/18 at 06:59 Fentanyl Citrate (Fentanyl 2ml Vial) 50 mcg PRN Q5MIN PRN IV MODERATE TO SEVERE PAIN; Start 12/19/18 at 07:00; Stop 12/20/18 at 06:59 Morphine Sulfate (Morphine Sulfate) 1 mg PRN Q10MIN PRN IV SEVERE PAIN 7-10; Start 12/19/18 at 07:00; Stop 12/20/18 at 06:59 Ringer's Solution 1,000 ml @ 30 mls/hr Q24H IV ; Start 12/19/18 at 07:00; Stop 12/19/18 at 18:59 Lidocaine HCl (Xylocaine-Mpf 1% 2ml Vial) 2 ml PRN 1X PRN ID PRIOR TO IV START; Start 12/19/18 at 07:00; Stop 12/20/18 at 06:59 Hydromorphone HCl (Dilaudid) 0.5 mg PRN Q10MIN PRN IV SEV PAIN, Second choice; Start 12/19/18 at 07:00; Stop 12/20/18 at 06:59 Prochlorperazine Edisylate (Compazine) 5 mg PACU PRN PRN IV NAUSEA, MRX1; Start 12/19/18 at 07:00; Stop 12/20/18 at 06:59 Phytonadione 10 mg/Dextrose 51 ml @ 102 mls/hr 1X ONCE IV ; Start 12/19/18 at 09:15; Stop 12/19/18 at 09:44; Status DC Active Scripts Active Reported Losartan Potassium 100 Mg Tablet 100 Mg PO DAILY Multi-Vitamin Daily (Multivitamin) 1 Each Tablet 1 Tab PO DAILY 30 Days Coumadin (Warfarin Sodium) 4 Mg Tablet 3.5 Mg PO DAILY Atorvastatin Calcium 20 Mg Tablet 1 Tab PO DAILY Toprol Xl (Metoprolol Succinate) 50 Mg Tab.er.24h 25 Mg PO DAILY Amlodipine Besylate 10 Mg Tablet 10 Mg PO DAILY Uloric (Febuxostat) 40 Mg Tablet 1 Tab PO DAILY Detrol La (Tolterodine Tartrate) 4 Mg Cap.er.24h 1 Cap PO DAILY Vitals/I & O Vital Sign - Last 24 Hours 12/18/18 12/18/18 12/18/18 12/18/18 10:47 14:45 15:08 19:00 Temp 98.7 99.1 99.3 98.7 99.1 99.3 Pulse 105 81 81 116 Resp 16 16 18 B/P (MAP) 132/81 (98) 169/91 (117) 169/91 137/63 (87) Pulse Ox 93 92 94 O2 Delivery Room Air Room Air Room Air 12/18/18 12/18/18 12/18/18 12/18/18 19:55 21:18 21:48 22:48 Temp 97.4 97.4 Pulse 132 Resp 16 18 20 B/P (MAP) 138/87 (104) Pulse Ox 94 96 92 O2 Delivery Room Air Room Air Room Air Room Air 12/19/18 12/19/18 12/19/18 02:58 07:16 08:00 Temp 99.4 93.0 99.4 93.0 Pulse 95 105 Resp 16 20 B/P (MAP) 134/78 (96) 121/59 (79) Pulse Ox 96 93 O2 Delivery Room Air Room Air Room Air Intake and Output 12/18/18 12/18/18 12/19/18 15:00 23:00 07:00 Intake Total 0 ml 0 ml Output Total 150 ml 150 ml 700 ml Balance -150 ml -150 ml -700 ml LAURA CROOKS MD Dec 19, 2018 10:29
[2018-12-19 10:40] VITALS: BP 146/76
--- NOTE | 2018-12-19 11:35 | PDOC2 ---
GI CONSULT Reason For Consult: Abd pain, ?SBO, do you concur with surgery? HPI: HPI: 83 y/o female admitted 12/16 through ER w/ abd pain and n/v. Imaging suggestive of ileus vs SBO. Remains on NG suction and followed by Dr. Rojas. Surgery on hold w/ elevated INR - chronic Coumadin for A Fib. She says she feels better than she did last week. Not sure about flatus, but denies stool. No n/v now. Thinks last stooled on Tuesday. Denies reflux/heartburn, dysphagia, chronic n/v, diarrhea, and bleeding. Occasional constipation improved w/ Dulcolax. Chronic upper abdominal pain. Thinks she had EGD at some point, recalls no significant findings. Can document colonoscopy from 06/2015 w/ hepatic flexure polyp (biopsy showed inflammation and vegetable material). No GB, liver, pancreas, or PUD history. PMH: PMH: A Fib, HTN, HLD, gout, OA, CKD, vavular disease, pulm HTN left nephrectomy, hysterectomy w/ BSO, tonsillectomy, bladder suspension FH: Family History: No pertinent hx Social History: Smoke: No ALCOHOL: none ROS: GEN: Denies fevers, chills, sweats HEENT: Denies blurred vision, sore throat CV: Denies chest pain RESP: Denies shortness of air, cough GI: Per HPI : Denies hematuria, dysuria ENDO: Denies weight changes NEURO: Denies confusion, dizziness MSK: Denies weakness, joint pain/swelling SKIN: Denies jaundice, pruritus Vitals: Vitals: Vital Signs Date Time Temp Pulse Resp B/P (MAP) Pulse Ox O2 Delivery O2 Flow Rate FiO2 12/19/18 10:40 98.7 94 16 146/76 (99) 94 Room Air 98.7 Labs: Labs: Laboratory Tests Test 12/18/18 11:57 12/18/18 18:04 12/19/18 00:08 12/19/18 05:30 Glucose (Fingerstick) 107 mg/dL (70-99) 116 mg/dL (70-99) 140 mg/dL (70-99) White Blood Count 13.6 x10^3/uL (4.0-11.0) Red Blood Count 4.33 x10^6/uL (3.50-5.40) Hemoglobin 13.6 g/dL (12.0-15.5) Hematocrit 40.6 % (36.0-47.0) Mean Corpuscular Volume 94 fL (79-100) Mean Corpuscular Hemoglobin 31 pg (25-35) Mean Corpuscular Hemoglobin Concent 33 g/dL (31-37) Red Cell Distribution Width 14.3 % (11.5-14.5) Platelet Count 151 x10^3/uL (140-400) Neutrophils (%) (Auto) 89 % (31-73) Lymphocytes (%) (Auto) 6 % (24-48) Monocytes (%) (Auto) 6 % (0-9) Eosinophils (%) (Auto) 0 % (0-3) Basophils (%) (Auto) 0 % (0-3) Neutrophils # (Auto) 12.0 x10^3/uL (1.8-7.7) Lymphocytes # (Auto) 0.8 x10^3/uL (1.0-4.8) Monocytes # (Auto) 0.8 x10^3/uL (0.0-1.1) Eosinophils # (Auto) 0.0 x10^3/uL (0.0-0.7) Basophils # (Auto) 0.0 x10^3/uL (0.0-0.2) Segmented Neutrophils % 80 % (35-66) Lymphocytes % 13 % (24-48) Monocytes % 6 % (0-10) Eosinophils % 1 % (0-5) Platelet Estimate Adequate (ADEQUATE) Prothrombin Time 19.9 SEC (11.7-14.0) Prothromb Time International Ratio 1.7 (0.8-1.1) Sodium Level 138 mmol/L (136-145) Potassium Level 4.0 mmol/L (3.5-5.1) Chloride Level 103 mmol/L (98-107) Carbon Dioxide Level 27 mmol/L (21-32) Anion Gap 8 (6-14) Blood Urea Nitrogen 48 mg/dL (7-20) Creatinine 2.5 mg/dL (0.6-1.0) Estimated GFR (Cockcroft-Gault) 22.4 BUN/Creatinine Ratio 19 (6-20) Glucose Level 117 mg/dL (70-99) Calcium Level 8.8 mg/dL (8.5-10.1) Total Bilirubin 1.3 mg/dL (0.2-1.0) Aspartate Amino Transf (AST/SGOT) 20 U/L (15-37) Alanine Aminotransferase (ALT/SGPT) 18 U/L (14-59) Alkaline Phosphatase 51 U/L (46-116) Total Protein 7.7 g/dL (6.4-8.2) Albumin 2.9 g/dL (3.4-5.0) Albumin/Globulin Ratio 0.6 (1.0-1.7) Amylase Level 70 U/L (25-115) Lipase 85 U/L (73-393) Test 12/19/18 06:22 12/19/18 07:23 Glucose (Fingerstick) 138 mg/dL (70-99) 133 mg/dL (70-99) Allergies: Coded Allergies: Iodine and Iodide Containing Produc (Verified Allergy, Intermediate, 07/21/15) Medications: Current Medications Medications (Trade) Dose Ordered Sig/[place] Route PRN Reason Start Time Stop Time Status Last Admin Dose Admin Phytonadione 10 mg/Dextrose 51 ml @ 102 mls/hr 1X ONCE IV 12/19/18 09:15 12/19/18 09:44 DC 12/19/18 10:37 Imaging: Imaging: AAS 12/19 Impression: No new infiltrate. Minimal decrease in small bowel dissection. Renal US 12/18 IMPRESSION: 1. Status post left nephrectomy. Unremarkable examination of the right kidney. No hydronephrosis. CT A/P 12/16 IMPRESSION: Mild dilation of small bowel loops in the central abdomen without a definite transition. Findings may be related to mild ileus pattern or partial small bowel obstruction. Correlate clinically. Close clinical and radiographic follow-up recommended. Scattered stool throughout the colon likely constipation. RUQ US 12/16 IMPRESSION: Limited exam otherwise grossly normal. PE: GEN: NAD HEENT: Atraumatic, PERRL - NGT bilious LUNGS: CTAB HEART: irregularly irregular ABD: quiet, soft, tenderness in upper abdomen EXTREMITY: No edema SKIN: No rashes, no jaundice NEURO/PSYCH: A & O 3 A/P: A/P: Ileus vs SBO Chronic abd pain CRC screen - UTD (2015) Occasional constipation A Fib on Coumadin (held), INR 1.7 (received vit K) Leukocytosis, ?UTI -- Symptoms improved. Bilious NG output, apparently no flatus or stool yet. Will review w/ Dr. Nicole. NATHANIEL SMALL Dec 19, 2018 11:35
[2018-12-19] MEDS: cefTRIAXone IV Push 1 GM VIAL. IVP SCH (12:12)
[2018-12-19 14:55] VITALS: BP 166/78
--- NOTE | 2018-12-19 15:27 | CONS ---
DATE OF CONSULTATION: 12/19/2018 REFERRING PHYSICIAN: Duaen Cedeno MD. REASON FOR CONSULTATION: Leukocytosis, UTI. HISTORY OF PRESENT ILLNESS: An 83-year-old female, who lives at home, presented to the ER on 12/16/2018, with complaints of abdominal pain, worsening with nausea, vomiting, decreased p.o. intake. Ultrasound of the abdomen did not show any gallstones. CAT scan showed some dilatation of the small bowel loops without a transition zone. She was thought to have mild ileus and/or partial bowel obstruction. The patient was not on any antibiotics. Yesterday, she had leukocytosis. She was started on empiric Rocephin. UA shows pyuria. ID consult has been requested for antibiotic management. General Surgery is following the patient. She is on Coumadin for chronic atrial fibrillation. They are waiting for the INR to come down for possible surgical intervention. The patient also has left nephrectomy and creatinine has been elevated. Renal team is on the case. PAST MEDICAL HISTORY: Chronic atrial fibrillation, hypertension, hyperlipidemia, gout, overactive bladder, osteoarthritis, morbid obesity, left nephrectomy for kidney stone disease, total abdominal hysterectomy, bilateral salpingo-oophorectomy, tonsillectomy CKD, moderate MR, moderate TR, and moderate pulmonary hypertension. SOCIAL HISTORY: Denies smoking or alcohol. Lives alone, has 4 sons. FAMILY HISTORY: Noncontributory. REVIEW OF SYSTEMS: Negative except for above. CURRENT MEDICATIONS: IV Rocephin. Other medications reviewed in medication list. PHYSICAL EXAMINATION: VITAL SIGNS: Temperature 98.7, yesterday it was 93.0, pulse 94, respirations 16, blood pressure 146/76, oxygen saturation 94% on room air. GENERAL: Alert, oriented x 3, pleasant female, lying comfortably in bed, in no acute distress. HEENT: Normocephalic, atraumatic. NG tube with bilious output. NECK: Supple, no JVD. LUNGS: Clear bilaterally. HEART: Irregularly irregular. ABDOMEN: Soft, mild tenderness in the right upper quadrant, otherwise no rebound, no guarding. EXTREMITIES: No edema, no cyanosis. DERMATOLOGIC: Warm, dry. No generalized rash. NEUROLOGIC: Alert and oriented x 3, grossly nonfocal. GENITOURINARY: Sheldon in place. LABORATORY DATA: WBC 13.6, hemoglobin 13.6, hematocrit 40.6, and platelets 151. Sodium 138, potassium 4.0, chloride 103, bicarbonate 27, BUN 48, creatinine 2.5, glucose 133, total bilirubin 1.3, albumin 2.9. UA shows 5-10 wbc's, leukocyte esterase small. IMAGING: Acute abdominal series shows no new infiltrate, minimal decrease in small bowel dilatation. IMPRESSION: 1. Leukocytosis, likely multifactorial from ileus versus small bowel obstruction versus urinary tract infection. 2. Urinary retention, with Sheldon in place since yesterday. 3. Chronic abdominal pain, with nausea and vomiting on presentation. 4. Acute kidney injury on chronic kidney disease, with underlying left nephrectomy. 5. Ileus versus small bowel obstruction, NG tube with bilious drainage. 6. DJD RECOMMENDATIONS: 1. Continue empiric Rocephin. 2. Follow up cultures and labs. 3. Continue supportive care. 4. Maintain aspiration precaution. Thank you for allowing Infectious Disease to participate in this patient's care. We will follow along with you. JEROME SAWYER MD DR: TUYET/nts JOB#: [id number] / [id number] JONO
[2018-12-19 19:33] VITALS: BP 102/58
--- NOTE | 2018-12-19 20:10 | NUR ---
Transfer of care note Pt transfer to room 562 via wheelchair all belongings transfer with pt, report called to Ana ragsdale all questions and concerns answered.
[2018-12-19 23:00] VITALS: BP 135/67
[2018-12-20 03:00] VITALS: BP 141/77
[2018-12-20] MEDS: IV DEXTROSE 5 %-0.45 % NACL 1,000 ML IV SCH (03:00)
[2018-12-20 05:00] LABS: PROTHROMBIN TIME PATIENT 14.8 SEC (11.7-14.0)
[2018-12-20 05:05] LABS: BASO % 0 % (0-3); EOS % 0 % (0-3); HEMATOCRIT 39.1 % (36.0-47.0); HEMOGLOBIN 12.8 g/dL (12.0-15.5); LYMPH % 7 % (24-48); MEAN CORPUSCULAR HEMOGLOBIN 31 pg (25-35); MEAN CORPUSCULAR HGB CONC 33 g/dL (31-37); MEAN CORPUSCULAR VOLUME 94 fL (79-100); MONO # 0.8 x10^3/uL (0.0-1.1); MONO % 7 % (0-9); NEUT # 11.1 x10^3/uL (1.8-7.7); NEUT % 86 % (31-73); PLATELET COUNT 138 x10^3/uL (140-400); RED BLOOD COUNT 4.17 x10^6/uL (3.50-5.40); WHITE BLOOD COUNT 12.9 x10^3/uL (4.0-11.0)
[2018-12-20 05:21] LABS: ALBUMIN 2.6 g/dL (3.4-5.0); ALBUMIN/GLOBULIN RATIO 0.6 (1.0-1.7); CALCIUM 8.4 mg/dL (8.5-10.1); CREATININE 2.2 mg/dL (0.6-1.0); GFR 25.9; POTASSIUM 3.6 mmol/L (3.5-5.1); TOTAL BILIRUBIN 1.1 mg/dL (0.2-1.0); TOTAL PROTEIN 7.2 g/dL (6.4-8.2)
[2018-12-20 07:00] VITALS: BP 114/58
[2018-12-20] MEDS: PANTOPRAZOLE IV PUSH 40 MG VIAL. IVP SCH (07:30)
--- NOTE | 2018-12-20 08:30 | RAD ---
EXAM: 2 VIEW ABDOMEN WITH ONE VIEW CHEST. HISTORY: Small bowel obstruction. COMPARISON: 12/19/2018. FINDINGS: A frontal view of the chest and supine/upright views of the abdomen are obtained. There is atelectasis in both lung bases. There is no pneumothorax or clear pleural effusion. The heart is moderately enlarged. There are atherosclerotic calcifications of the aorta. Calcified lymph nodes likely reflect old granulomatous disease. Widening of the high right paratracheal stripe may be from tortuous vasculature as this appears to have been stable chronically. The central pulmonary arteries appear enlarged. 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 A nasogastric tube has its proximal sidehole at the level of the gastroesophageal junction. There is no pneumoperitoneum. Small bowel distention in the lower abdomen has improved but not completely resolved. There is gas distally. There are moderate to severe degenerative changes of the lower lumbar spine. IMPRESSION: 1. Basilar atelectasis. No confluent infiltrates. 2. Moderate cardiomegaly. Correlate for pulmonary arterial hypertension. 3. Recommend advancement of the nasogastric tube by 10 cm. 4. Small bowel distention has improved but not completely resolved. Electronically signed by: Yadiel Root MD (12/20/2018 8:27 AM) [facility]
--- NOTE | 2018-12-20 09:47 | PDOC ---
Infectious Disease Note Subjective: Subjective Pt off unit for possible surgery d/w rn chart reviewed ROS: ROS unable to obtain Vital Signs: Vital Signs Vital Signs Date Time Temp Pulse Resp B/P (MAP) Pulse Ox O2 Delivery O2 Flow Rate FiO2 12/20/18 07:00 97.5 91 18 114/58 (76) 96 Room Air 97.5 Physical Exam: PHYSICAL EXAM not done Medications: Inpatient Meds: Current Medications Medications (Trade) Dose Ordered Sig/Nimco Start Time Stop Time Status Last Admin Dose Admin Acetaminophen (Tylenol Supp) 650 mg PRN Q6HRS PRN 12/17/18 10:00 Acetaminophen (Tylenol) 650 mg PRN Q4HRS PRN 12/16/18 15:15 12/17/18 15:14 DC Bupivacaine HCl/ Epinephrine Bitart (Sensorcain-Epi 0.5%-1:466658 Mpf) 30 ml 1X ONCE 12/19/18 06:00 12/19/18 06:01 DC Ceftriaxone Sodium (Rocephin) 1 gm Q24H 12/18/18 11:00 12/19/18 12:12 1 GM Clonidine HCl (Catapres) 0.1 mg 1X ONCE 12/16/18 14:15 12/16/18 14:16 DC 12/16/18 15:12 0.1 MG Dextrose/Sodium Chloride 1,000 ml @ 150 mls/hr Q6H40M 12/18/18 10:30 12/20/18 03:00 150 MLS/HR Enoxaparin Sodium (Lovenox 100mg Syringe) 100 mg DAILY 12/17/18 10:30 12/19/18 09:14 DC 12/17/18 12:49 100 MG Fentanyl Citrate (Fentanyl 2ml Vial) 50 mcg PRN Q5MIN PRN 12/19/18 07:00 12/20/18 06:59 DC Hydralazine HCl (Apresoline Inj) 10 mg PRN Q6HRS PRN 12/17/18 01:00 12/18/18 15:08 10 MG Hydromorphone HCl (Dilaudid) 0.5 mg PRN Q10MIN PRN 12/19/18 07:00 12/20/18 06:59 DC Info (Anti-Coagulation Monitoring By Pharmacy) 1 each PRN DAILY PRN 12/17/18 10:15 12/18/18 10:42 1 EACH Insulin Human Lispro (HumaLOG) 0-6 UNITS BG 300-399... Q6HRS 12/17/18 12:00 12/17/18 10:24 DC Lidocaine HCl (Xylocaine-Mpf 1% 2ml Vial) 2 ml PRN 1X PRN 12/19/18 07:00 12/20/18 06:59 DC Morphine Sulfate (Morphine Sulfate) 1 mg PRN Q10MIN PRN 12/19/18 07:00 12/20/18 06:59 DC Ondansetron HCl (Zofran) 4 mg PRN Q6HRS PRN 12/19/18 07:00 12/20/18 06:59 DC Pantoprazole Sodium (PROTONIX VIAL for IV PUSH) 40 mg DAILYAC 12/17/18 10:30 12/20/18 07:30 40 MG Phytonadione 10 mg/Dextrose 51 ml @ 102 mls/hr 1X ONCE 12/19/18 09:15 12/19/18 09:44 DC 12/19/18 10:37 102 MLS/HR Potassium Chloride/Dextrose/ Sod Cl 1,000 ml @ 100 mls/hr Q10H 12/16/18 17:00 12/18/18 10:34 DC 12/18/18 01:27 80 MLS/HR Prochlorperazine Edisylate (Compazine) 5 mg PACU PRN PRN 12/19/18 07:00 12/20/18 06:59 DC Ringer's Solution 1,000 ml @ 30 mls/hr Q24H 12/19/18 07:00 12/19/18 18:59 DC Sodium Chloride 1,000 ml @ 125 mls/hr Q8H 12/16/18 15:10 12/16/18 17:26 DC Labs: Lab Laboratory Tests Test 12/19/18 12:18 12/20/18 00:06 12/20/18 03:45 Glucose (Fingerstick) 133 mg/dL (70-99) 109 mg/dL (70-99) White Blood Count 12.9 x10^3/uL (4.0-11.0) Red Blood Count 4.17 x10^6/uL (3.50-5.40) Hemoglobin 12.8 g/dL (12.0-15.5) Hematocrit 39.1 % (36.0-47.0) Mean Corpuscular Volume 94 fL (79-100) Mean Corpuscular Hemoglobin 31 pg (25-35) Mean Corpuscular Hemoglobin Concent 33 g/dL (31-37) Red Cell Distribution Width 14.0 % (11.5-14.5) Platelet Count 138 x10^3/uL (140-400) Neutrophils (%) (Auto) 86 % (31-73) Lymphocytes (%) (Auto) 7 % (24-48) Monocytes (%) (Auto) 7 % (0-9) Eosinophils (%) (Auto) 0 % (0-3) Basophils (%) (Auto) 0 % (0-3) Neutrophils # (Auto) 11.1 x10^3/uL (1.8-7.7) Lymphocytes # (Auto) 1.0 x10^3/uL (1.0-4.8) Monocytes # (Auto) 0.8 x10^3/uL (0.0-1.1) Eosinophils # (Auto) 0.0 x10^3/uL (0.0-0.7) Basophils # (Auto) 0.0 x10^3/uL (0.0-0.2) Prothrombin Time 14.8 SEC (11.7-14.0) Prothromb Time International Ratio 1.2 (0.8-1.1) Sodium Level 137 mmol/L (136-145) Potassium Level 3.6 mmol/L (3.5-5.1) Chloride Level 102 mmol/L (98-107) Carbon Dioxide Level 26 mmol/L (21-32) Anion Gap 9 (6-14) Blood Urea Nitrogen 46 mg/dL (7-20) Creatinine 2.2 mg/dL (0.6-1.0) Estimated GFR (Cockcroft-Gault) 25.9 BUN/Creatinine Ratio 21 (6-20) Glucose Level 136 mg/dL (70-99) Calcium Level 8.4 mg/dL (8.5-10.1) Total Bilirubin 1.1 mg/dL (0.2-1.0) Aspartate Amino Transf (AST/SGOT) 20 U/L (15-37) Alanine Aminotransferase (ALT/SGPT) 17 U/L (14-59) Alkaline Phosphatase 50 U/L (46-116) Total Protein 7.2 g/dL (6.4-8.2) Albumin 2.6 g/dL (3.4-5.0) Albumin/Globulin Ratio 0.6 (1.0-1.7) Micro UC pending CT A/P FINDINGS: Pleural-based right anterior and left posterior lung base opacities likely atelectasis or scarring. Heart size is grossly unremarkable. Unopacified liver, spleen, gallbladder and pancreas are normal. Both adrenal glands and right kidney appears normal. Left kidney is not seen and is absent either surgically or congenitally. Mild dilation of small bowel loops seen in the central abdomen without definite transition. No inflammatory changes are seen. Small ventral abdominal wall hernia containing omental fat There is scattered stool in the colon. The urinary bladder is decompressed. Uterus is either atrophic or surgically absent. IMPRESSION: Mild dilation of small bowel loops in the central abdomen without a definite transition. Findings may be related to mild ileus pattern or partial small bowel obstruction. Correlate clinically. Close clinical and radiographic follow-up recommended. Scattered stool throughout the colon likely constipation. Objective: Assessment: 1. Leukocytosis, likely multifactorial from ileus versus small bowel obstruction versus urinary tract infection. 2. Urinary retention, with Sheldon in place this admission 3. Chronic abdominal pain, with nausea and vomiting on presentation. 4. Acute kidney injury on chronic kidney disease, with underlying left nephrectomy. 5. Ileus versus small bowel obstruction, NG tube with bilious drainage. 6. Pyuria UC pending 7. Mild thrombocytopenia Plan: Plan of Care Continue empiric Rocephin. Follow up cultures and labs. Continue supportive care. Maintain aspiration precaution. JEROME SAWYER MD Dec 20, 2018 09:47
--- NOTE | 2018-12-20 09:48 | PDOC ---
PROGRESS NOTES Subjective Subjective discussed case with dr mitchell and Mechelle small yesterday. acute abdominal series today shows less small bowel distention and is improved but not resolved. serum creatinine bettter 2.2. ine 1.2 and wbc better and afebrile.. feels a little better. Objective Objective Vital Signs Date Time Temp Pulse Resp B/P (MAP) Pulse Ox O2 Delivery O2 Flow Rate FiO2 12/20/18 07:00 97.5 91 18 114/58 (76) 96 Room Air 97.5 Intake and Output 12/20/18 07:00 Intake Total 1000 ml Output Total 1725 ml Balance -725 ml Intake Oral 0 ml IV Total 1000 ml Output Urine Total 425 ml Stool Total 800 ml Gastric Drainage Total 500 ml Physical Exam Abdomen: Soft, Other (minimal epigastric tenderness. decreasee bowel sounds. less abdominal distention. no guarding. abdomen is soft and obese.) Heart: Normal S1, Normal S2 Extremities: No edema General: Alert HEENT: Atraumatic Lungs: Clear to auscultation Neuro: Normal speech Psych/Mental Status: Mental status NL Skin: No rashes Assessment Assessment Problems1. Suspect partial small-bowel obstruction.vs. ileus 2. Acute kidney injury better on top of chronic kidney disease stage 3 3. Hypertension. 4. Hyperlipidemia. 5. Chronic atrial fibrillation. off of anticoagulation for possible surgery tomorrow per dr. joshi 6. Chronic gout. 7. History of a left nephrectomy. pyuria low grade fever resolved mild leukocytosis improved Medical Problems: (1) Epigastric pain Status: Acute (2) Epigastric pain Status: Acute (3) Nausea Status: Acute (4) Nausea Status: Acute (5) Small bowel obstruction Status: Acute Plan Plan of Care advance NG tube per radiologist. repeat KUB for NG tube position npo continue iv fluids and NG suctioning acute abdominal series tomorrow telemetry continue iv rocephin urine culture pending lab tomorrow dr. joshi to review acute abdominal series and speak with patient Comment Review of Relevant I have reviewed the following items rubia (where applicable) has been applied. Labs Laboratory Tests Test 12/18/18 11:57 12/18/18 18:04 12/19/18 00:08 12/19/18 05:30 Glucose (Fingerstick) 107 mg/dL (70-99) 116 mg/dL (70-99) 140 mg/dL (70-99) White Blood Count 13.6 x10^3/uL (4.0-11.0) Red Blood Count 4.33 x10^6/uL (3.50-5.40) Hemoglobin 13.6 g/dL (12.0-15.5) Hematocrit 40.6 % (36.0-47.0) Mean Corpuscular Volume 94 fL (79-100) Mean Corpuscular Hemoglobin 31 pg (25-35) Mean Corpuscular Hemoglobin Concent 33 g/dL (31-37) Red Cell Distribution Width 14.3 % (11.5-14.5) Platelet Count 151 x10^3/uL (140-400) Neutrophils (%) (Auto) 89 % (31-73) Lymphocytes (%) (Auto) 6 % (24-48) Monocytes (%) (Auto) 6 % (0-9) Eosinophils (%) (Auto) 0 % (0-3) Basophils (%) (Auto) 0 % (0-3) Neutrophils # (Auto) 12.0 x10^3/uL (1.8-7.7) Lymphocytes # (Auto) 0.8 x10^3/uL (1.0-4.8) Monocytes # (Auto) 0.8 x10^3/uL (0.0-1.1) Eosinophils # (Auto) 0.0 x10^3/uL (0.0-0.7) Basophils # (Auto) 0.0 x10^3/uL (0.0-0.2) Segmented Neutrophils % 80 % (35-66) Lymphocytes % 13 % (24-48) Monocytes % 6 % (0-10) Eosinophils % 1 % (0-5) Platelet Estimate Adequate (ADEQUATE) Prothrombin Time 19.9 SEC (11.7-14.0) Prothromb Time International Ratio 1.7 (0.8-1.1) Sodium Level 138 mmol/L (136-145) Potassium Level 4.0 mmol/L (3.5-5.1) Chloride Level 103 mmol/L (98-107) Carbon Dioxide Level 27 mmol/L (21-32) Anion Gap 8 (6-14) Blood Urea Nitrogen 48 mg/dL (7-20) Creatinine 2.5 mg/dL (0.6-1.0) Estimated GFR (Cockcroft-Gault) 22.4 BUN/Creatinine Ratio 19 (6-20) Glucose Level 117 mg/dL (70-99) Calcium Level 8.8 mg/dL (8.5-10.1) Total Bilirubin 1.3 mg/dL (0.2-1.0) Aspartate Amino Transf (AST/SGOT) 20 U/L (15-37) Alanine Aminotransferase (ALT/SGPT) 18 U/L (14-59) Alkaline Phosphatase 51 U/L (46-116) Total Protein 7.7 g/dL (6.4-8.2) Albumin 2.9 g/dL (3.4-5.0) Albumin/Globulin Ratio 0.6 (1.0-1.7) Amylase Level 70 U/L (25-115) Lipase 85 U/L (73-393) Test 12/19/18 06:22 12/19/18 07:23 12/19/18 12:18 12/20/18 00:06 Glucose (Fingerstick) 138 mg/dL (70-99) 133 mg/dL (70-99) 133 mg/dL (70-99) 109 mg/dL (70-99) Test 12/20/18 03:45 White Blood Count 12.9 x10^3/uL (4.0-11.0) Red Blood Count 4.17 x10^6/uL (3.50-5.40) Hemoglobin 12.8 g/dL (12.0-15.5) Hematocrit 39.1 % (36.0-47.0) Mean Corpuscular Volume 94 fL (79-100) Mean Corpuscular Hemoglobin 31 pg (25-35) Mean Corpuscular Hemoglobin Concent 33 g/dL (31-37) Red Cell Distribution Width 14.0 % (11.5-14.5) Platelet Count 138 x10^3/uL (140-400) Neutrophils (%) (Auto) 86 % (31-73) Lymphocytes (%) (Auto) 7 % (24-48) Monocytes (%) (Auto) 7 % (0-9) Eosinophils (%) (Auto) 0 % (0-3) Basophils (%) (Auto) 0 % (0-3) Neutrophils # (Auto) 11.1 x10^3/uL (1.8-7.7) Lymphocytes # (Auto) 1.0 x10^3/uL (1.0-4.8) Monocytes # (Auto) 0.8 x10^3/uL (0.0-1.1) Eosinophils # (Auto) 0.0 x10^3/uL (0.0-0.7) Basophils # (Auto) 0.0 x10^3/uL (0.0-0.2) Prothrombin Time 14.8 SEC (11.7-14.0) Prothromb Time International Ratio 1.2 (0.8-1.1) Sodium Level 137 mmol/L (136-145) Potassium Level 3.6 mmol/L (3.5-5.1) Chloride Level 102 mmol/L (98-107) Carbon Dioxide Level 26 mmol/L (21-32) Anion Gap 9 (6-14) Blood Urea Nitrogen 46 mg/dL (7-20) Creatinine 2.2 mg/dL (0.6-1.0) Estimated GFR (Cockcroft-Gault) 25.9 BUN/Creatinine Ratio 21 (6-20) Glucose Level 136 mg/dL (70-99) Calcium Level 8.4 mg/dL (8.5-10.1) Total Bilirubin 1.1 mg/dL (0.2-1.0) Aspartate Amino Transf (AST/SGOT) 20 U/L (15-37) Alanine Aminotransferase (ALT/SGPT) 17 U/L (14-59) Alkaline Phosphatase 50 U/L (46-116) Total Protein 7.2 g/dL (6.4-8.2) Albumin 2.6 g/dL (3.4-5.0) Albumin/Globulin Ratio 0.6 (1.0-1.7) Laboratory Tests Test 12/19/18 12:18 12/20/18 00:06 12/20/18 03:45 Glucose (Fingerstick) 133 mg/dL (70-99) 109 mg/dL (70-99) White Blood Count 12.9 x10^3/uL (4.0-11.0) Red Blood Count 4.17 x10^6/uL (3.50-5.40) Hemoglobin 12.8 g/dL (12.0-15.5) Hematocrit 39.1 % (36.0-47.0) Mean Corpuscular Volume 94 fL (79-100) Mean Corpuscular Hemoglobin 31 pg (25-35) Mean Corpuscular Hemoglobin Concent 33 g/dL (31-37) Red Cell Distribution Width 14.0 % (11.5-14.5) Platelet Count 138 x10^3/uL (140-400) Neutrophils (%) (Auto) 86 % (31-73) Lymphocytes (%) (Auto) 7 % (24-48) Monocytes (%) (Auto) 7 % (0-9) Eosinophils (%) (Auto) 0 % (0-3) Basophils (%) (Auto) 0 % (0-3) Neutrophils # (Auto) 11.1 x10^3/uL (1.8-7.7) Lymphocytes # (Auto) 1.0 x10^3/uL (1.0-4.8) Monocytes # (Auto) 0.8 x10^3/uL (0.0-1.1) Eosinophils # (Auto) 0.0 x10^3/uL (0.0-0.7) Basophils # (Auto) 0.0 x10^3/uL (0.0-0.2) Prothrombin Time 14.8 SEC (11.7-14.0) Prothromb Time International Ratio 1.2 (0.8-1.1) Sodium Level 137 mmol/L (136-145) Potassium Level 3.6 mmol/L (3.5-5.1) Chloride Level 102 mmol/L (98-107) Carbon Dioxide Level 26 mmol/L (21-32) Anion Gap 9 (6-14) Blood Urea Nitrogen 46 mg/dL (7-20) Creatinine 2.2 mg/dL (0.6-1.0) Estimated GFR (Cockcroft-Gault) 25.9 BUN/Creatinine Ratio 21 (6-20) Glucose Level 136 mg/dL (70-99) Calcium Level 8.4 mg/dL (8.5-10.1) Total Bilirubin 1.1 mg/dL (0.2-1.0) Aspartate Amino Transf (AST/SGOT) 20 U/L (15-37) Alanine Aminotransferase (ALT/SGPT) 17 U/L (14-59) Alkaline Phosphatase 50 U/L (46-116) Total Protein 7.2 g/dL (6.4-8.2) Albumin 2.6 g/dL (3.4-5.0) Albumin/Globulin Ratio 0.6 (1.0-1.7) Medications Current Medications Ondansetron HCl (Zofran) 4 mg 1X ONCE IM ; Start 12/16/18 at 09:30; Stop 12/16/18 at 09:31; Status DC Fentanyl Citrate (Fentanyl 2ml Vial) 75 mcg 1X ONCE IVP Last administered on 12/16/18at 09:46; Start 12/16/18 at 09:45; Stop 12/16/18 at 09:46; Status DC Ondansetron HCl (Zofran) 4 mg 1X ONCE IVP Last administered on 12/16/18at 09:51; Start 12/16/18 at 10:00; Stop 12/16/18 at 10:01; Status DC Sodium Chloride 1,000 ml @ 1,000 mls/hr 1X ONCE IV Last administered on 12/16/18at 10:40; Start 12/16/18 at 10:15; Stop 12/16/18 at 11:14; Status DC Clonidine HCl (Catapres) 0.1 mg 1X ONCE PO Last administered on 12/16/18at 15:12; Start 12/16/18 at 14:15; Stop 12/16/18 at 14:16; Status DC Fentanyl Citrate (Fentanyl 2ml Vial) 75 mcg 1X ONCE IVP ; Start 12/16/18 at 15:15; Stop 12/16/18 at 15:16; Status DC Ondansetron HCl (Zofran) 4 mg PRN Q8HRS PRN IV NAUSEA/VOMITING; Start 12/16/18 at 15:15; Stop 12/16/18 at 17:10; Status DC Fentanyl Citrate (Fentanyl 2ml Vial) 50 mcg PRN Q1HR PRN IV PAIN Last administered on 12/17/18at 07:28; Start 12/16/18 at 15:15; Stop 12/17/18 at 15:14; Status DC Sodium Chloride 1,000 ml @ 125 mls/hr Q8H IV ; Start 12/16/18 at 15:10; Stop 12/16/18 at 17:26; Status DC Acetaminophen (Tylenol) 650 mg PRN Q4HRS PRN PO FEVER; Start 12/16/18 at 15:15; Stop 12/17/18 at 15:14; Status DC Potassium Chloride/Dextrose/ Sod Cl 1,000 ml @ 100 mls/hr Q10H IV Last administered on 12/18/18at 01:27; Start 12/16/18 at 17:00; Stop 12/18/18 at 10:34; Status DC Ondansetron HCl (Zofran) 4 mg PRN Q6HRS PRN IVP NAUSEA/VOMITING Last administered on 12/18/18at 21:17; Start 12/16/18 at 17:00 Hydralazine HCl (Apresoline Inj) 10 mg PRN Q6HRS PRN IVP ELEVATED BP, SEE COMMENTS Last administered on 12/18/18at 15:08; Start 12/17/18 at 01:00 Enoxaparin Sodium (Lovenox 100mg Syringe) 100 mg DAILY SQ Last administered on 12/17/18at 12:49; Start 12/17/18 at 10:30; Stop 12/19/18 at 09:14; Status DC Info (Anti-Coagulation Monitoring By Pharmacy) 1 each PRN DAILY PRN MC SEE COMMENTS Last administered on 12/18/18at 10:42; Start 12/17/18 at 10:15 Pantoprazole Sodium (PROTONIX VIAL for IV PUSH) 40 mg DAILYAC IVP Last administered on 12/20/18at 07:30; Start 12/17/18 at 10:30 Acetaminophen (Tylenol Supp) 650 mg PRN Q6HRS PRN IA HEADACHE / TEMP; Start 12/17/18 at 10:00 Fentanyl Citrate (Fentanyl 2ml Vial) 50 mcg PRN Q4HRS PRN IVP PAIN Last administered on 12/18/18at 21:18; Start 12/17/18 at 10:00 Insulin Human Lispro (HumaLOG) 0-6 UNITS BG 300-399... Q6HRS SQ ; Start 12/17/18 at 12:00; Stop 12/17/18 at 10:24; Status DC Ceftriaxone Sodium (Rocephin) 1 gm Q24H IVP Last administered on 12/19/18at 12:12; Start 12/18/18 at 11:00 Dextrose/Sodium Chloride 1,000 ml @ 150 mls/hr Q6H40M IV Last administered on 12/20/18at 03:00; Start 12/18/18 at 10:30 Bupivacaine HCl/ Epinephrine Bitart (Sensorcain-Epi 0.5%-1:149448 Mpf) 30 ml 1X ONCE INJ ; Start 12/18/18 at 15:00; Stop 12/18/18 at 15:01; Status Cancel Bupivacaine HCl/ Epinephrine Bitart (Sensorcain-Epi 0.5%-1:219142 Mpf) 30 ml 1X ONCE INJ ; Start 12/19/18 at 06:00; Stop 12/19/18 at 06:01; Status DC Ondansetron HCl (Zofran) 4 mg PRN Q6HRS PRN IV NAUSEA/VOMITING; Start 12/19/18 at 07:00; Stop 12/20/18 at 06:59; Status DC Fentanyl Citrate (Fentanyl 2ml Vial) 25 mcg PRN Q5MIN PRN IV MILD PAIN 1-3; Start 12/19/18 at 07:00; Stop 12/20/18 at 06:59; Status DC Fentanyl Citrate (Fentanyl 2ml Vial) 50 mcg PRN Q5MIN PRN IV MODERATE TO SEVERE PAIN; Start 12/19/18 at 07:00; Stop 12/20/18 at 06:59; Status DC Morphine Sulfate (Morphine Sulfate) 1 mg PRN Q10MIN PRN IV SEVERE PAIN 7-10; Start 12/19/18 at 07:00; Stop 12/20/18 at 06:59; Status DC Ringer's Solution 1,000 ml @ 30 mls/hr Q24H IV ; Start 12/19/18 at 07:00; Stop 12/19/18 at 18:59; Status DC Lidocaine HCl (Xylocaine-Mpf 1% 2ml Vial) 2 ml PRN 1X PRN ID PRIOR TO IV START; Start 12/19/18 at 07:00; Stop 12/20/18 at 06:59; Status DC Hydromorphone HCl (Dilaudid) 0.5 mg PRN Q10MIN PRN IV SEV PAIN, Second choice; Start 12/19/18 at 07:00; Stop 12/20/18 at 06:59; Status DC Prochlorperazine Edisylate (Compazine) 5 mg PACU PRN PRN IV NAUSEA, MRX1; Start 12/19/18 at 07:00; Stop 12/20/18 at 06:59; Status DC Phytonadione 10 mg/Dextrose 51 ml @ 102 mls/hr 1X ONCE IV Last administered on 12/19/18at 10:37; Start 12/19/18 at 09:15; Stop 12/19/18 at 09:44; Status DC Active Scripts Active Reported Losartan Potassium 100 Mg Tablet 100 Mg PO DAILY Multi-Vitamin Daily (Multivitamin) 1 Each Tablet 1 Tab PO DAILY 30 Days Coumadin (Warfarin Sodium) 4 Mg Tablet 3.5 Mg PO DAILY Atorvastatin Calcium 20 Mg Tablet 1 Tab PO DAILY Toprol Xl (Metoprolol Succinate) 50 Mg Tab.er.24h 25 Mg PO DAILY Amlodipine Besylate 10 Mg Tablet 10 Mg PO DAILY Uloric (Febuxostat) 40 Mg Tablet 1 Tab PO DAILY Detrol La (Tolterodine Tartrate) 4 Mg Cap.er.24h 1 Cap PO DAILY Vitals/I & O Vital Sign - Last 24 Hours 12/19/18 12/19/18 12/19/18 12/19/18 10:40 14:55 19:33 20:30 Temp 98.7 99.3 98.8 98.7 99.3 98.8 Pulse 94 83 98 Resp 16 16 18 B/P (MAP) 146/76 (99) 166/78 (107) 102/58 (73) Pulse Ox 94 94 94 O2 Delivery Room Air Room Air Room Air 12/19/18 12/20/18 12/20/18 23:00 03:00 07:00 Temp 98.7 98.3 97.5 98.7 98.3 97.5 Pulse 88 93 91 Resp 18 18 18 B/P (MAP) 135/67 (89) 141/77 (98) 114/58 (76) Pulse Ox 92 96 96 O2 Delivery Room Air Room Air Room Air Intake and Output 12/19/18 12/19/18 12/20/18 15:00 23:00 07:00 Intake Total 1000 ml Output Total 925 ml 500 ml 300 ml Balance 75 ml -500 ml -300 ml LAURA CROOKS MD Dec 20, 2018 09:48
--- NOTE | 2018-12-20 09:56 | PDOC ---
Subjective: Subjective: Feels the same, hopes surgery is today. Objective: Vital Signs: Vital Signs Date Time Temp Pulse Resp B/P (MAP) Pulse Ox O2 Delivery O2 Flow Rate FiO2 12/20/18 07:00 97.5 91 18 114/58 (76) 96 Room Air 97.5 Labs: Laboratory Tests Test 12/19/18 12:18 12/20/18 00:06 12/20/18 03:45 Glucose (Fingerstick) 133 mg/dL 109 mg/dL White Blood Count 12.9 x10^3/uL Red Blood Count 4.17 x10^6/uL Hemoglobin 12.8 g/dL Hematocrit 39.1 % Mean Corpuscular Volume 94 fL Mean Corpuscular Hemoglobin 31 pg Mean Corpuscular Hemoglobin Concent 33 g/dL Red Cell Distribution Width 14.0 % Platelet Count 138 x10^3/uL Neutrophils (%) (Auto) 86 % Lymphocytes (%) (Auto) 7 % Monocytes (%) (Auto) 7 % Eosinophils (%) (Auto) 0 % Basophils (%) (Auto) 0 % Neutrophils # (Auto) 11.1 x10^3/uL Lymphocytes # (Auto) 1.0 x10^3/uL Monocytes # (Auto) 0.8 x10^3/uL Eosinophils # (Auto) 0.0 x10^3/uL Basophils # (Auto) 0.0 x10^3/uL Prothrombin Time 14.8 SEC Prothromb Time International Ratio 1.2 Sodium Level 137 mmol/L Potassium Level 3.6 mmol/L Chloride Level 102 mmol/L Carbon Dioxide Level 26 mmol/L Anion Gap 9 Blood Urea Nitrogen 46 mg/dL Creatinine 2.2 mg/dL Estimated GFR (Cockcroft-Gault) 25.9 BUN/Creatinine Ratio 21 Glucose Level 136 mg/dL Calcium Level 8.4 mg/dL Total Bilirubin 1.1 mg/dL Aspartate Amino Transf (AST/SGOT) 20 U/L Alanine Aminotransferase (ALT/SGPT) 17 U/L Alkaline Phosphatase 50 U/L Total Protein 7.2 g/dL Albumin 2.6 g/dL Albumin/Globulin Ratio 0.6 Imaging: [facility] 12/20 IMPRESSION: 1. Basilar atelectasis. No confluent infiltrates. 2. Moderate cardiomegaly. Correlate for pulmonary arterial hypertension. 3. Recommend advancement of the nasogastric tube by 10 cm. 4. Small bowel distention has improved but not completely resolved. PE: GEN: up in chair, resting HEENT: NG bilious LUNGS: room air HEART: RRR ABD: quiet, soft NEURO/PSYCH: A & O 3 - not talkative today A/P: Ileus vs SBO -- Note plans to advance NGT, possibly to OR tomorrow. NATHANIEL SMALL Dec 20, 2018 09:56
--- NOTE | 2018-12-20 09:57 | PDOC ---
SUBJECTIVE ROS states feeling fair OBJECTIVE Vital Signs Vital Signs Date Time Temp Pulse Resp B/P (MAP) Pulse Ox O2 Delivery O2 Flow Rate FiO2 12/20/18 07:00 97.5 91 18 114/58 (76) 96 Room Air 97.5 I & 0 Intake and Output 12/20/18 07:00 Intake Total 1000 ml Output Total 1725 ml Balance -725 ml Intake Oral 0 ml IV Total 1000 ml Output Urine Total 425 ml Stool Total 800 ml Gastric Drainage Total 500 ml PHYSICAL EXAM Physical Exam GEN- NAD HEENT: OM dry , NG tube NECK: supple HEART RRR LUNGS: Clear, Non labored ABDOMEN: Soft, obese. epigastric tenderness, but no guarding EXTREMITIES: NO LE edema SKIN: No rashes. NEUROLOGICAL: Grossly tory; - Sethi+, No CVA or SP tenderness DIAGNOSIS/ASSESSMENT Assessment & Plan WILLIAMS - Suspect ATN 2//2 Poor Po intake, Vomiting, SBO , UA unremarkable, Renal US Unremarkable , renal function improving E-Lytes Stable, holding losartan Urinary retention Bladder scan with significant PVR- Now has sethi IVF suppportive care, Strict I/O ,avoid Nephrotoxins, Monitor CKD stage 3 - Follows with Dr. Cavanaugh Q 6 months Solitary Kidney - S/P Lt Nephrectomy SBO- No plan for surgery currently per RN , KUB improved per GS NG tube advanced, still have significant output HTN- BP were low, now stable Chronic atrial fibrillation, on Coumadin Chronic gout. COMMENT/RELEVANT DATA Meds Current Medications Medications (Trade) Dose Ordered Sig/Nimco Start Time Stop Time Status Last Admin Dose Admin Acetaminophen (Tylenol Supp) 650 mg PRN Q6HRS PRN 12/17/18 10:00 Acetaminophen (Tylenol) 650 mg PRN Q4HRS PRN 12/16/18 15:15 12/17/18 15:14 DC Bupivacaine HCl/ Epinephrine Bitart (Sensorcain-Epi 0.5%-1:307599 Mpf) 30 ml 1X ONCE 12/19/18 06:00 12/19/18 06:01 DC Ceftriaxone Sodium (Rocephin) 1 gm Q24H 12/18/18 11:00 12/19/18 12:12 1 GM Clonidine HCl (Catapres) 0.1 mg 1X ONCE 12/16/18 14:15 12/16/18 14:16 DC 12/16/18 15:12 0.1 MG Dextrose/Sodium Chloride 1,000 ml @ 150 mls/hr Q6H40M 12/18/18 10:30 12/20/18 09:52 DC 12/20/18 03:00 150 MLS/HR Enoxaparin Sodium (Lovenox 100mg Syringe) 100 mg DAILY 12/17/18 10:30 12/19/18 09:14 DC 12/17/18 12:49 100 MG Fentanyl Citrate (Fentanyl 2ml Vial) 50 mcg PRN Q5MIN PRN 12/19/18 07:00 12/20/18 06:59 DC Hydralazine HCl (Apresoline Inj) 10 mg PRN Q6HRS PRN 12/17/18 01:00 12/18/18 15:08 10 MG Hydromorphone HCl (Dilaudid) 0.5 mg PRN Q10MIN PRN 12/19/18 07:00 12/20/18 06:59 DC Info (Anti-Coagulation Monitoring By Pharmacy) 1 each PRN DAILY PRN 12/17/18 10:15 12/18/18 10:42 1 EACH Insulin Human Lispro (HumaLOG) 0-6 UNITS BG 300-399... Q6HRS 12/17/18 12:00 12/17/18 10:24 DC Lidocaine HCl (Xylocaine-Mpf 1% 2ml Vial) 2 ml PRN 1X PRN 12/19/18 07:00 12/20/18 06:59 DC Morphine Sulfate (Morphine Sulfate) 1 mg PRN Q10MIN PRN 12/19/18 07:00 12/20/18 06:59 DC Ondansetron HCl (Zofran) 4 mg PRN Q6HRS PRN 12/19/18 07:00 12/20/18 06:59 DC Pantoprazole Sodium (PROTONIX VIAL for IV PUSH) 40 mg DAILYAC 12/17/18 10:30 12/20/18 07:30 40 MG Phytonadione 10 mg/Dextrose 51 ml @ 102 mls/hr 1X ONCE 12/19/18 09:15 12/19/18 09:44 DC 12/19/18 10:37 102 MLS/HR Potassium Chloride/Dextrose/ Sod Cl 1,000 ml @ 150 mls/hr Q6H40M 12/20/18 11:00 Prochlorperazine Edisylate (Compazine) 5 mg PACU PRN PRN 12/19/18 07:00 12/20/18 06:59 DC Ringer's Solution 1,000 ml @ 30 mls/hr Q24H 12/19/18 07:00 12/19/18 18:59 DC Sodium Chloride 1,000 ml @ 125 mls/hr Q8H 12/16/18 15:10 12/16/18 17:26 DC Lab Laboratory Tests Test 12/19/18 12:18 12/20/18 00:06 12/20/18 03:45 Glucose (Fingerstick) 133 mg/dL (70-99) 109 mg/dL (70-99) White Blood Count 12.9 x10^3/uL (4.0-11.0) Red Blood Count 4.17 x10^6/uL (3.50-5.40) Hemoglobin 12.8 g/dL (12.0-15.5) Hematocrit 39.1 % (36.0-47.0) Mean Corpuscular Volume 94 fL (79-100) Mean Corpuscular Hemoglobin 31 pg (25-35) Mean Corpuscular Hemoglobin Concent 33 g/dL (31-37) Red Cell Distribution Width 14.0 % (11.5-14.5) Platelet Count 138 x10^3/uL (140-400) Neutrophils (%) (Auto) 86 % (31-73) Lymphocytes (%) (Auto) 7 % (24-48) Monocytes (%) (Auto) 7 % (0-9) Eosinophils (%) (Auto) 0 % (0-3) Basophils (%) (Auto) 0 % (0-3) Neutrophils # (Auto) 11.1 x10^3/uL (1.8-7.7) Lymphocytes # (Auto) 1.0 x10^3/uL (1.0-4.8) Monocytes # (Auto) 0.8 x10^3/uL (0.0-1.1) Eosinophils # (Auto) 0.0 x10^3/uL (0.0-0.7) Basophils # (Auto) 0.0 x10^3/uL (0.0-0.2) Prothrombin Time 14.8 SEC (11.7-14.0) Prothromb Time International Ratio 1.2 (0.8-1.1) Sodium Level 137 mmol/L (136-145) Potassium Level 3.6 mmol/L (3.5-5.1) Chloride Level 102 mmol/L (98-107) Carbon Dioxide Level 26 mmol/L (21-32) Anion Gap 9 (6-14) Blood Urea Nitrogen 46 mg/dL (7-20) Creatinine 2.2 mg/dL (0.6-1.0) Estimated GFR (Cockcroft-Gault) 25.9 BUN/Creatinine Ratio 21 (6-20) Glucose Level 136 mg/dL (70-99) Calcium Level 8.4 mg/dL (8.5-10.1) Total Bilirubin 1.1 mg/dL (0.2-1.0) Aspartate Amino Transf (AST/SGOT) 20 U/L (15-37) Alanine Aminotransferase (ALT/SGPT) 17 U/L (14-59) Alkaline Phosphatase 50 U/L (46-116) Total Protein 7.2 g/dL (6.4-8.2) Albumin 2.6 g/dL (3.4-5.0) Albumin/Globulin Ratio 0.6 (1.0-1.7) Results All relevant outside records, renal labs, imaging studies, telemetry/EKG's were reviewed. RUBEN RUCKER MD Dec 20, 2018 09:57
--- NOTE | 2018-12-20 10:28 | NUR ---
SW following pt. Spoke with PT/OT, they recommend SNU today but anticipate pt will go home with home health pending progress. Pt currently has NG tube. SW will continue to follow pt.
--- NOTE | 2018-12-20 10:40 | RAD ---
EXAM: Abdomen, single view. HISTORY: Nasogastric tube advancement. COMPARISON: 12/20/2018 FINDINGS: A frontal view of the upper abdomen is obtained. There has been slight advancement of the nasogastric tube. The tube is now looped within the stomach. There are distended loops of bowel throughout the abdomen, not appreciably changed compared to the prior study. No free air is seen. There is a suspected small left pleural effusion. There is a prominent cardiac silhouette. IMPRESSION: 1. Nasogastric tube looped within the stomach. 2. Distended loops of bowel throughout the abdomen, not appreciably changed compared to the prior study. 3. Small left pleural effusion and enlarged cardiac silhouette. Electronically signed by: Temitope Whipple MD (12/20/2018 10:37 AM) [facility]
[2018-12-20] MEDS: cefTRIAXone IV Push 1 GM VIAL. IVP SCH (11:00)
[2018-12-20] MEDS: POTASSIUM CL 20MEQ D5-0.45NACL 1,000 ML IV SCH ×3 (11:00→20:55)
[2018-12-20] MEDS ORDERED: LIDOCAINE 2% PF 5 ML VIAL. ONE (11:14)
[2018-12-20] MEDS ORDERED: NEOSTIGMINE 10 MG/10 ML VIAL. ONE (11:16)
[2018-12-20] MEDS ORDERED: MIDAZOLAM HCL/PF 2 MG/2 ML VIAL. ONE (11:17)
[2018-12-20] MEDS ORDERED: GLYCOPYRROLATE 1 MG/5 ML VIAL. ONE (11:17)
[2018-12-20] MEDS ORDERED: ROCURONIUM 50 MG/5 ML VIAL. ONE (11:17)
[2018-12-20] MEDS ORDERED: fentaNYL PF VIAL 100 MCG/2 ML VIAL ONE (11:17)
[2018-12-20] MEDS ORDERED: SUCCINYLCHOLINE 200 MG/10 ML VIAL. ONE (11:21)
--- NOTE | 2018-12-20 13:48 | PDOC ---
SURGICAL PROGRESS NOTE Subjective Was to have surgery today. Had flatus more than once and has no abd pain. INR 1.2 and abd series this am sow much improvement as the SBO/ielus is resolving. Clinically the abd is soft without tenderness and without mass. spoke to Mrs. Head and the family at length. They wish to not have the surgery and se if this resolves wihout surgery. She is better. Will likely clamp (not remove NG as she had so much trouble getting it down) NG in am and see how she does. Will then likely remove the NG if she takes liquids without problems with the tube in and clamped. Will follow and Dr. Molina will be available for emergences.. Vital Signs Vital Signs Date Time Temp Pulse Resp B/P (MAP) Pulse Ox O2 Delivery O2 Flow Rate FiO2 12/20/18 07:00 97.5 91 18 114/58 (76) 96 Room Air 97.5 I&O Intake and Output 12/20/18 07:00 Intake Total 1000 ml Output Total 1725 ml Balance -725 ml Intake Oral 0 ml IV Total 1000 ml Output Urine Total 425 ml Stool Total 800 ml Gastric Drainage Total 500 ml Labs Laboratory Tests Test 12/18/18 18:04 12/19/18 00:08 12/19/18 05:30 12/19/18 06:22 Glucose (Fingerstick) 116 mg/dL (70-99) 140 mg/dL (70-99) 138 mg/dL (70-99) White Blood Count 13.6 x10^3/uL (4.0-11.0) Red Blood Count 4.33 x10^6/uL (3.50-5.40) Hemoglobin 13.6 g/dL (12.0-15.5) Hematocrit 40.6 % (36.0-47.0) Mean Corpuscular Volume 94 fL (79-100) Mean Corpuscular Hemoglobin 31 pg (25-35) Mean Corpuscular Hemoglobin Concent 33 g/dL (31-37) Red Cell Distribution Width 14.3 % (11.5-14.5) Platelet Count 151 x10^3/uL (140-400) Neutrophils (%) (Auto) 89 % (31-73) Lymphocytes (%) (Auto) 6 % (24-48) Monocytes (%) (Auto) 6 % (0-9) Eosinophils (%) (Auto) 0 % (0-3) Basophils (%) (Auto) 0 % (0-3) Neutrophils # (Auto) 12.0 x10^3/uL (1.8-7.7) Lymphocytes # (Auto) 0.8 x10^3/uL (1.0-4.8) Monocytes # (Auto) 0.8 x10^3/uL (0.0-1.1) Eosinophils # (Auto) 0.0 x10^3/uL (0.0-0.7) Basophils # (Auto) 0.0 x10^3/uL (0.0-0.2) Segmented Neutrophils % 80 % (35-66) Lymphocytes % 13 % (24-48) Monocytes % 6 % (0-10) Eosinophils % 1 % (0-5) Platelet Estimate Adequate (ADEQUATE) Prothrombin Time 19.9 SEC (11.7-14.0) Prothromb Time International Ratio 1.7 (0.8-1.1) Sodium Level 138 mmol/L (136-145) Potassium Level 4.0 mmol/L (3.5-5.1) Chloride Level 103 mmol/L (98-107) Carbon Dioxide Level 27 mmol/L (21-32) Anion Gap 8 (6-14) Blood Urea Nitrogen 48 mg/dL (7-20) Creatinine 2.5 mg/dL (0.6-1.0) Estimated GFR (Cockcroft-Gault) 22.4 BUN/Creatinine Ratio 19 (6-20) Glucose Level 117 mg/dL (70-99) Calcium Level 8.8 mg/dL (8.5-10.1) Total Bilirubin 1.3 mg/dL (0.2-1.0) Aspartate Amino Transf (AST/SGOT) 20 U/L (15-37) Alanine Aminotransferase (ALT/SGPT) 18 U/L (14-59) Alkaline Phosphatase 51 U/L (46-116) Total Protein 7.7 g/dL (6.4-8.2) Albumin 2.9 g/dL (3.4-5.0) Albumin/Globulin Ratio 0.6 (1.0-1.7) Amylase Level 70 U/L (25-115) Lipase 85 U/L (73-393) Test 12/19/18 07:23 12/19/18 12:18 12/20/18 00:06 12/20/18 03:45 Glucose (Fingerstick) 133 mg/dL (70-99) 133 mg/dL (70-99) 109 mg/dL (70-99) White Blood Count 12.9 x10^3/uL (4.0-11.0) Red Blood Count 4.17 x10^6/uL (3.50-5.40) Hemoglobin 12.8 g/dL (12.0-15.5) Hematocrit 39.1 % (36.0-47.0) Mean Corpuscular Volume 94 fL (79-100) Mean Corpuscular Hemoglobin 31 pg (25-35) Mean Corpuscular Hemoglobin Concent 33 g/dL (31-37) Red Cell Distribution Width 14.0 % (11.5-14.5) Platelet Count 138 x10^3/uL (140-400) Neutrophils (%) (Auto) 86 % (31-73) Lymphocytes (%) (Auto) 7 % (24-48) Monocytes (%) (Auto) 7 % (0-9) Eosinophils (%) (Auto) 0 % (0-3) Basophils (%) (Auto) 0 % (0-3) Neutrophils # (Auto) 11.1 x10^3/uL (1.8-7.7) Lymphocytes # (Auto) 1.0 x10^3/uL (1.0-4.8) Monocytes # (Auto) 0.8 x10^3/uL (0.0-1.1) Eosinophils # (Auto) 0.0 x10^3/uL (0.0-0.7) Basophils # (Auto) 0.0 x10^3/uL (0.0-0.2) Prothrombin Time 14.8 SEC (11.7-14.0) Prothromb Time International Ratio 1.2 (0.8-1.1) Sodium Level 137 mmol/L (136-145) Potassium Level 3.6 mmol/L (3.5-5.1) Chloride Level 102 mmol/L (98-107) Carbon Dioxide Level 26 mmol/L (21-32) Anion Gap 9 (6-14) Blood Urea Nitrogen 46 mg/dL (7-20) Creatinine 2.2 mg/dL (0.6-1.0) Estimated GFR (Cockcroft-Gault) 25.9 BUN/Creatinine Ratio 21 (6-20) Glucose Level 136 mg/dL (70-99) Calcium Level 8.4 mg/dL (8.5-10.1) Total Bilirubin 1.1 mg/dL (0.2-1.0) Aspartate Amino Transf (AST/SGOT) 20 U/L (15-37) Alanine Aminotransferase (ALT/SGPT) 17 U/L (14-59) Alkaline Phosphatase 50 U/L (46-116) Total Protein 7.2 g/dL (6.4-8.2) Albumin 2.6 g/dL (3.4-5.0) Albumin/Globulin Ratio 0.6 (1.0-1.7) Test 12/20/18 12:56 Glucose (Fingerstick) 87 mg/dL (70-99) Laboratory Tests Test 12/20/18 00:06 12/20/18 03:45 12/20/18 12:56 Glucose (Fingerstick) 109 mg/dL (70-99) 87 mg/dL (70-99) White Blood Count 12.9 x10^3/uL (4.0-11.0) Red Blood Count 4.17 x10^6/uL (3.50-5.40) Hemoglobin 12.8 g/dL (12.0-15.5) Hematocrit 39.1 % (36.0-47.0) Mean Corpuscular Volume 94 fL (79-100) Mean Corpuscular Hemoglobin 31 pg (25-35) Mean Corpuscular Hemoglobin Concent 33 g/dL (31-37) Red Cell Distribution Width 14.0 % (11.5-14.5) Platelet Count 138 x10^3/uL (140-400) Neutrophils (%) (Auto) 86 % (31-73) Lymphocytes (%) (Auto) 7 % (24-48) Monocytes (%) (Auto) 7 % (0-9) Eosinophils (%) (Auto) 0 % (0-3) Basophils (%) (Auto) 0 % (0-3) Neutrophils # (Auto) 11.1 x10^3/uL (1.8-7.7) Lymphocytes # (Auto) 1.0 x10^3/uL (1.0-4.8) Monocytes # (Auto) 0.8 x10^3/uL (0.0-1.1) Eosinophils # (Auto) 0.0 x10^3/uL (0.0-0.7) Basophils # (Auto) 0.0 x10^3/uL (0.0-0.2) Prothrombin Time 14.8 SEC (11.7-14.0) Prothromb Time International Ratio 1.2 (0.8-1.1) Sodium Level 137 mmol/L (136-145) Potassium Level 3.6 mmol/L (3.5-5.1) Chloride Level 102 mmol/L (98-107) Carbon Dioxide Level 26 mmol/L (21-32) Anion Gap 9 (6-14) Blood Urea Nitrogen 46 mg/dL (7-20) Creatinine 2.2 mg/dL (0.6-1.0) Estimated GFR (Cockcroft-Gault) 25.9 BUN/Creatinine Ratio 21 (6-20) Glucose Level 136 mg/dL (70-99) Calcium Level 8.4 mg/dL (8.5-10.1) Total Bilirubin 1.1 mg/dL (0.2-1.0) Aspartate Amino Transf (AST/SGOT) 20 U/L (15-37) Alanine Aminotransferase (ALT/SGPT) 17 U/L (14-59) Alkaline Phosphatase 50 U/L (46-116) Total Protein 7.2 g/dL (6.4-8.2) Albumin 2.6 g/dL (3.4-5.0) Albumin/Globulin Ratio 0.6 (1.0-1.7) Problem List Problems Medical Problems: (1) Epigastric pain Status: Acute (2) Epigastric pain Status: Acute (3) Nausea Status: Acute (4) Nausea Status: Acute (5) Small bowel obstruction Status: Acute JASMYN MYERS MD Dec 20, 2018 13:48
[2018-12-20 15:00] VITALS: BP 139/81
[2018-12-20 19:00] VITALS: BP 152/78
[2018-12-20 23:00] VITALS: BP 151/88
[2018-12-21] VITALS (7 sets, daily range): BP systolic 80–151; BP diastolic 33–84
[2018-12-21] MEDS: POTASSIUM CL 20MEQ D5-0.45NACL 1,000 ML IV SCH (03:26)
[2018-12-21] MEDS: fentaNYL PF VIAL 100 MCG/2 ML VIAL IVP PRN ×2 (03:31→08:54)
[2018-12-21 05:02] LABS: BASO % 0 % (0-3); EOS % 0 % (0-3); HEMATOCRIT 37.9 % (36.0-47.0); HEMOGLOBIN 12.3 g/dL (12.0-15.5); LYMPH # 0.7 x10^3/uL (1.0-4.8); LYMPH % 8 % (24-48); MEAN CORPUSCULAR HEMOGLOBIN 31 pg (25-35); MEAN CORPUSCULAR HGB CONC 33 g/dL (31-37); MEAN CORPUSCULAR VOLUME 95 fL (79-100); MONO # 0.8 x10^3/uL (0.0-1.1); MONO % 9 % (0-9); NEUT # 8.2 x10^3/uL (1.8-7.7); NEUT % 84 % (31-73); PLATELET COUNT 130 x10^3/uL (140-400); RED BLOOD COUNT 3.98 x10^6/uL (3.50-5.40); RED CELL DISTRIBUTION WIDTH 14.1 % (11.5-14.5); WHITE BLOOD COUNT 9.8 x10^3/uL (4.0-11.0)
[2018-12-21 05:29] LABS: CALCIUM 8.1 mg/dL (8.5-10.1); CREATININE 1.8 mg/dL (0.6-1.0); GFR 32.7; POTASSIUM 4.7 mmol/L (3.5-5.1)
--- NOTE | 2018-12-21 08:30 | RAD ---
EXAM: 2 VIEW ABDOMEN WITH ONE VIEW CHEST. HISTORY: Small bowel obstruction. COMPARISON: 12/20/2018. FINDINGS: A frontal view of the chest and supine/upright views of the abdomen are obtained. The inspiration is small with bibasilar atelectasis. There is no pneumothorax or pleural effusion. The heart is moderately enlarged. There are atherosclerotic calcifications of the aorta. Calcified lymph nodes likely reflect old granulomatous disease. Prominence of the right paratracheal stripe appears to been stable chronically. 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 A nasogastric tube has its tip in the stomach. There is no pneumoperitoneum. Small bowel distention in the midline lower abdomen is stable to mildly increased. There is less gas distally. IMPRESSION: 1. Moderate cardiomegaly. 2. Small bowel distention is mildly increased. There is less gas distally. Electronically signed by: Yadiel Root MD (12/21/2018 8:27 AM) [facility]
[2018-12-21] MEDS: PANTOPRAZOLE IV PUSH 40 MG VIAL. IVP SCH (08:53)
--- NOTE | 2018-12-21 09:29 | PDOC ---
Infectious Disease Note Subjective: Subjective pt says feels ok no f/c/abdo pain ROS: ROS Negative otherwise. Vital Signs: Vital Signs Vital Signs Date Time Temp Pulse Resp B/P (MAP) Pulse Ox O2 Delivery O2 Flow Rate FiO2 12/21/18 08:54 Room Air 12/21/18 07:00 98.6 94 16 101/51 (68) 94 98.6 Physical Exam: PHYSICAL EXAM GENERAL: Alert, oriented x 3, pleasant female, lying comfortably in bed, in no acute distress. HEENT: Normocephalic, atraumatic. NG tube with bilious output. NECK: Supple, no JVD. LUNGS: Clear bilaterally. HEART: Irregularly irregular. ABDOMEN: Soft, mild tenderness in the right upper quadrant, otherwise no rebound, no guarding. EXTREMITIES: No edema, no cyanosis. DERMATOLOGIC: Warm, dry. No generalized rash. NEUROLOGIC: Alert and oriented x 3, grossly nonfocal. GENITOURINARY: Sheldon in place. Medications: Inpatient Meds: Current Medications Medications (Trade) Dose Ordered Sig/Nimco Start Time Stop Time Status Last Admin Dose Admin Acetaminophen (Tylenol Supp) 650 mg PRN Q6HRS PRN 12/17/18 10:00 Acetaminophen (Tylenol) 650 mg PRN Q4HRS PRN 12/16/18 15:15 12/17/18 15:14 DC Bupivacaine HCl/ Epinephrine Bitart (Sensorcain-Epi 0.5%-1:747918 Mpf) 30 ml 1X ONCE 12/19/18 06:00 12/19/18 06:01 DC Ceftriaxone Sodium (Rocephin) 1 gm Q24H 12/18/18 11:00 12/20/18 11:00 1 GM Clonidine HCl (Catapres) 0.1 mg 1X ONCE 12/16/18 14:15 12/16/18 14:16 DC 12/16/18 15:12 0.1 MG Dextrose/Sodium Chloride 1,000 ml @ 150 mls/hr Q6H40M 12/18/18 10:30 12/20/18 09:52 DC 12/20/18 03:00 150 MLS/HR Enoxaparin Sodium (Lovenox 100mg Syringe) 100 mg DAILY 12/17/18 10:30 12/19/18 09:14 DC 12/17/18 12:49 100 MG Fentanyl Citrate (Fentanyl 2ml Vial) 100 mcg STK-MED ONCE 12/20/18 11:17 12/20/18 11:18 DC Glycopyrrolate (Robinul) 1 mg STK-MED ONCE 12/20/18 11:17 12/20/18 11:18 DC Hydralazine HCl (Apresoline Inj) 10 mg PRN Q6HRS PRN 12/17/18 01:00 12/18/18 15:08 10 MG Hydromorphone HCl (Dilaudid) 0.5 mg PRN Q10MIN PRN 12/19/18 07:00 12/20/18 06:59 DC Info (Anti-Coagulation Monitoring By Pharmacy) 1 each PRN DAILY PRN 12/17/18 10:15 12/18/18 10:42 1 EACH Insulin Human Lispro (HumaLOG) 0-6 UNITS BG 300-399... Q6HRS 12/17/18 12:00 12/17/18 10:24 DC Lidocaine HCl (Lidocaine Pf 2% Vial) 5 ml STK-MED ONCE 12/20/18 11:14 12/20/18 11:14 DC Lidocaine HCl (Xylocaine-Mpf 1% 2ml Vial) 2 ml PRN 1X PRN 12/19/18 07:00 12/20/18 06:59 DC Midazolam HCl (Versed) 2 mg STK-MED ONCE 12/20/18 11:17 12/20/18 11:18 DC Morphine Sulfate (Morphine Sulfate) 1 mg PRN Q10MIN PRN 12/19/18 07:00 12/20/18 06:59 DC Neostigmine Methylsulfate (Bloxiverz) 10 mg STK-MED ONCE 12/20/18 11:16 12/20/18 11:17 DC Ondansetron HCl (Zofran) 4 mg PRN Q6HRS PRN 12/19/18 07:00 12/20/18 06:59 DC Pantoprazole Sodium (PROTONIX VIAL for IV PUSH) 40 mg DAILYAC 12/17/18 10:30 12/21/18 08:53 40 MG Phytonadione 10 mg/Dextrose 51 ml @ 102 mls/hr 1X ONCE 12/19/18 09:15 12/19/18 09:44 DC 12/19/18 10:37 102 MLS/HR Potassium Chloride/Dextrose/ Sod Cl 1,000 ml @ 150 mls/hr Q6H40M 12/20/18 11:00 12/21/18 03:26 150 MLS/HR Prochlorperazine Edisylate (Compazine) 5 mg PACU PRN PRN 12/19/18 07:00 12/20/18 06:59 DC Ringer's Solution 1,000 ml @ 30 mls/hr Q24H 12/19/18 07:00 12/19/18 18:59 DC Rocuronium [place] (Zemuron) 50 mg STK-MED ONCE 12/20/18 11:17 12/20/18 11:17 DC Sodium Chloride 1,000 ml @ 125 mls/hr Q8H 12/16/18 15:10 12/16/18 17:26 DC Succinylcholine Chloride (Anectine) 200 mg STK-MED ONCE 12/20/18 11:21 12/20/18 11:21 DC Labs: Lab Laboratory Tests Test 12/20/18 12:56 12/20/18 18:16 12/20/18 20:34 12/21/18 00:16 Glucose (Fingerstick) 87 mg/dL (70-99) 122 mg/dL (70-99) 114 mg/dL (70-99) 121 mg/dL (70-99) Test 12/21/18 04:35 12/21/18 06:13 White Blood Count 9.8 x10^3/uL (4.0-11.0) Red Blood Count 3.98 x10^6/uL (3.50-5.40) Hemoglobin 12.3 g/dL (12.0-15.5) Hematocrit 37.9 % (36.0-47.0) Mean Corpuscular Volume 95 fL (79-100) Mean Corpuscular Hemoglobin 31 pg (25-35) Mean Corpuscular Hemoglobin Concent 33 g/dL (31-37) Red Cell Distribution Width 14.1 % (11.5-14.5) Platelet Count 130 x10^3/uL (140-400) Neutrophils (%) (Auto) 84 % (31-73) Lymphocytes (%) (Auto) 8 % (24-48) Monocytes (%) (Auto) 9 % (0-9) Eosinophils (%) (Auto) 0 % (0-3) Basophils (%) (Auto) 0 % (0-3) Neutrophils # (Auto) 8.2 x10^3/uL (1.8-7.7) Lymphocytes # (Auto) 0.7 x10^3/uL (1.0-4.8) Monocytes # (Auto) 0.8 x10^3/uL (0.0-1.1) Eosinophils # (Auto) 0.0 x10^3/uL (0.0-0.7) Basophils # (Auto) 0.0 x10^3/uL (0.0-0.2) Sodium Level 134 mmol/L (136-145) Potassium Level 4.7 mmol/L (3.5-5.1) Chloride Level 101 mmol/L (98-107) Carbon Dioxide Level 21 mmol/L (21-32) Anion Gap 12 (6-14) Blood Urea Nitrogen 45 mg/dL (7-20) Creatinine 1.8 mg/dL (0.6-1.0) Estimated GFR (Cockcroft-Gault) 32.7 Glucose Level 140 mg/dL (70-99) Calcium Level 8.1 mg/dL (8.5-10.1) Glucose (Fingerstick) 132 mg/dL (70-99) Micro UC pending CT A/P FINDINGS: Pleural-based right anterior and left posterior lung base opacities likely atelectasis or scarring. Heart size is grossly unremarkable. Unopacified liver, spleen, gallbladder and pancreas are normal. Both adrenal glands and right kidney appears normal. Left kidney is not seen and is absent either surgically or congenitally. Mild dilation of small bowel loops seen in the central abdomen without definite transition. No inflammatory changes are seen. Small ventral abdominal wall hernia containing omental fat There is scattered stool in the colon. The urinary bladder is decompressed. Uterus is either atrophic or surgically absent. IMPRESSION: Mild dilation of small bowel loops in the central abdomen without a definite transition. Findings may be related to mild ileus pattern or partial small bowel obstruction. Correlate clinically. Close clinical and radiographic follow-up recommended. Scattered stool throughout the colon likely constipation. Objective: Assessment: 1. Leukocytosis, likely multifactorial from ileus versus small bowel obstruction versus urinary tract infection. 2. Urinary retention, with Sheldon in place this admission 3. Chronic abdominal pain, with nausea and vomiting on presentation. 4. Acute kidney injury on chronic kidney disease, with underlying left nephrectomy. 5. Ileus versus small bowel obstruction, NG tube with bilious drainage. 6. Pyuria UC pending 7. Mild thrombocytopenia Plan: Plan of Care Continue empiric Rocephin. Follow up cultures and labs. Continue supportive care. Maintain aspiration precaution. JEROME SAWYER MD Dec 21, 2018 09:29
--- NOTE | 2018-12-21 09:40 | PDOC ---
Subjective: Subjective: Leg pain is most bothersome - says off her regular pain meds. Some nausea, no vomiting. Flatus but no stool. Abd feels okay. Objective: Objective: Nurse says possibly to clamp NGT and try clears. ~800cc out from NG (?overnight) - this morning not much output. Vital Signs: Vital Signs Date Time Temp Pulse Resp B/P (MAP) Pulse Ox O2 Delivery O2 Flow Rate FiO2 12/21/18 08:54 Room Air 12/21/18 07:00 98.6 94 16 101/51 (68) 94 98.6 Labs: Laboratory Tests Test 12/20/18 12:56 12/20/18 18:16 12/20/18 20:34 12/21/18 00:16 Glucose (Fingerstick) 87 mg/dL 122 mg/dL 114 mg/dL 121 mg/dL Test 12/21/18 04:35 12/21/18 06:13 White Blood Count 9.8 x10^3/uL Red Blood Count 3.98 x10^6/uL Hemoglobin 12.3 g/dL Hematocrit 37.9 % Mean Corpuscular Volume 95 fL Mean Corpuscular Hemoglobin 31 pg Mean Corpuscular Hemoglobin Concent 33 g/dL Red Cell Distribution Width 14.1 % Platelet Count 130 x10^3/uL Neutrophils (%) (Auto) 84 % Lymphocytes (%) (Auto) 8 % Monocytes (%) (Auto) 9 % Eosinophils (%) (Auto) 0 % Basophils (%) (Auto) 0 % Neutrophils # (Auto) 8.2 x10^3/uL Lymphocytes # (Auto) 0.7 x10^3/uL Monocytes # (Auto) 0.8 x10^3/uL Eosinophils # (Auto) 0.0 x10^3/uL Basophils # (Auto) 0.0 x10^3/uL Sodium Level 134 mmol/L Potassium Level 4.7 mmol/L Chloride Level 101 mmol/L Carbon Dioxide Level 21 mmol/L Anion Gap 12 Blood Urea Nitrogen 45 mg/dL Creatinine 1.8 mg/dL Estimated GFR (Cockcroft-Gault) 32.7 Glucose Level 140 mg/dL Calcium Level 8.1 mg/dL Glucose (Fingerstick) 132 mg/dL Imaging: [facility] 12/21 IMPRESSION: 1. Moderate cardiomegaly. 2. Small bowel distention is mildly increased. There is less gas distally. PE: GEN: NAD - difficult moving from bed to chair LUNGS: CTAB HEART: RRR ABD: quiet, soft, non-tender NEURO/PSYCH: A & O 3 A/P: SBO vs ileus -- Passing flatus and ?less NG outpt today, but worsening distention on x-ray. Await surgery recs. NATHANIEL SMALL Dec 21, 2018 09:40
--- NOTE | 2018-12-21 09:53 | PDOC ---
SUBJECTIVE ROS Stable, states feeling better OBJECTIVE Vital Signs Vital Signs Date Time Temp Pulse Resp B/P (MAP) Pulse Ox O2 Delivery O2 Flow Rate FiO2 12/21/18 08:54 Room Air 12/21/18 07:00 98.6 94 16 101/51 (68) 94 98.6 I & 0 Intake and Output 12/21/18 07:00 Intake Total 2000 ml Output Total 2500 ml Balance -500 ml Intake Oral 0 ml IV Total 2000 ml Output Urine Total 500 ml Gastric Drainage Total 800 ml Drainage Total 1200 ml PHYSICAL EXAM Physical Exam GEN- NAD HEENT: OM dry , NG tube NECK: supple HEART RRR LUNGS: Clear, Non labored ABDOMEN: Soft, obese. epigastric tenderness, but no guarding EXTREMITIES: NO LE edema SKIN: No rashes. NEUROLOGICAL: Grossly tory; - Sheldon+, No CVA or SP tenderness DIAGNOSIS/ASSESSMENT Assessment & Plan WILLIAMS - Suspect ATN 2//2 Poor Po intake, Vomiting, SBO , UA unremarkable, Renal US Unremarkable , renal function improving E-Lytes Stable, holding losartan Urinary retention Bladder scan with significant PVR- suppportive care, avoid Nephrotoxins, Monitor CKD stage 3 - Follows with Dr. Cavanaugh Q 6 months Solitary Kidney - S/P Lt Nephrectomy SBO- No plan for surgery currently per RN , KUB improved per GS NG tube advanced, still have significant output HTN- BP were low, now stable Chronic atrial fibrillation, on Coumadin Chronic gout. COMMENT/RELEVANT DATA Meds Current Medications Medications (Trade) Dose Ordered Sig/Nimco Start Time Stop Time Status Last Admin Dose Admin Acetaminophen (Tylenol Supp) 650 mg PRN Q6HRS PRN 12/17/18 10:00 Acetaminophen (Tylenol) 650 mg PRN Q4HRS PRN 12/16/18 15:15 12/17/18 15:14 DC Bupivacaine HCl/ Epinephrine Bitart (Sensorcain-Epi 0.5%-1:907951 Mpf) 30 ml 1X ONCE 12/19/18 06:00 12/19/18 06:01 DC Ceftriaxone Sodium (Rocephin) 1 gm Q24H 12/18/18 11:00 12/20/18 11:00 1 GM Clonidine HCl (Catapres) 0.1 mg 1X ONCE 12/16/18 14:15 12/16/18 14:16 DC 12/16/18 15:12 0.1 MG Dextrose/Sodium Chloride 1,000 ml @ 150 mls/hr Q6H40M 12/18/18 10:30 12/20/18 09:52 DC 12/20/18 03:00 150 MLS/HR Enoxaparin Sodium (Lovenox 100mg Syringe) 100 mg DAILY 12/17/18 10:30 12/19/18 09:14 DC 12/17/18 12:49 100 MG Fentanyl Citrate (Fentanyl 2ml Vial) 100 mcg STK-MED ONCE 12/20/18 11:17 12/20/18 11:18 DC Glycopyrrolate (Robinul) 1 mg STK-MED ONCE 12/20/18 11:17 12/20/18 11:18 DC Hydralazine HCl (Apresoline Inj) 10 mg PRN Q6HRS PRN 12/17/18 01:00 12/18/18 15:08 10 MG Hydromorphone HCl (Dilaudid) 0.5 mg PRN Q10MIN PRN 12/19/18 07:00 12/20/18 06:59 DC Info (Anti-Coagulation Monitoring By Pharmacy) 1 each PRN DAILY PRN 12/17/18 10:15 12/18/18 10:42 1 EACH Insulin Human Lispro (HumaLOG) 0-6 UNITS BG 300-399... Q6HRS 12/17/18 12:00 12/17/18 10:24 DC Lidocaine HCl (Lidocaine Pf 2% Vial) 5 ml STK-MED ONCE 12/20/18 11:14 12/20/18 11:14 DC Lidocaine HCl (Xylocaine-Mpf 1% 2ml Vial) 2 ml PRN 1X PRN 12/19/18 07:00 12/20/18 06:59 DC Midazolam HCl (Versed) 2 mg STK-MED ONCE 12/20/18 11:17 12/20/18 11:18 DC Morphine Sulfate (Morphine Sulfate) 1 mg PRN Q10MIN PRN 12/19/18 07:00 12/20/18 06:59 DC Neostigmine Methylsulfate (Bloxiverz) 10 mg STK-MED ONCE 12/20/18 11:16 12/20/18 11:17 DC Ondansetron HCl (Zofran) 4 mg PRN Q6HRS PRN 12/19/18 07:00 12/20/18 06:59 DC Pantoprazole Sodium (PROTONIX VIAL for IV PUSH) 40 mg DAILYAC 12/17/18 10:30 12/21/18 08:53 40 MG Phytonadione 10 mg/Dextrose 51 ml @ 102 mls/hr 1X ONCE 12/19/18 09:15 12/19/18 09:44 DC 12/19/18 10:37 102 MLS/HR Potassium Chloride/Dextrose/ Sod Cl 1,000 ml @ 150 mls/hr Q6H40M 12/20/18 11:00 12/21/18 03:26 150 MLS/HR Prochlorperazine Edisylate (Compazine) 5 mg PACU PRN PRN 12/19/18 07:00 12/20/18 06:59 DC Ringer's Solution 1,000 ml @ 30 mls/hr Q24H 12/19/18 07:00 12/19/18 18:59 DC Rocuronium [place] (Zemuron) 50 mg STK-MED ONCE 12/20/18 11:17 12/20/18 11:17 DC Sodium Chloride 1,000 ml @ 125 mls/hr Q8H 12/16/18 15:10 12/16/18 17:26 DC Succinylcholine Chloride (Anectine) 200 mg STK-MED ONCE 12/20/18 11:21 12/20/18 11:21 DC Lab Laboratory Tests Test 12/20/18 12:56 12/20/18 18:16 12/20/18 20:34 12/21/18 00:16 Glucose (Fingerstick) 87 mg/dL (70-99) 122 mg/dL (70-99) 114 mg/dL (70-99) 121 mg/dL (70-99) Test 12/21/18 04:35 12/21/18 06:13 White Blood Count 9.8 x10^3/uL (4.0-11.0) Red Blood Count 3.98 x10^6/uL (3.50-5.40) Hemoglobin 12.3 g/dL (12.0-15.5) Hematocrit 37.9 % (36.0-47.0) Mean Corpuscular Volume 95 fL (79-100) Mean Corpuscular Hemoglobin 31 pg (25-35) Mean Corpuscular Hemoglobin Concent 33 g/dL (31-37) Red Cell Distribution Width 14.1 % (11.5-14.5) Platelet Count 130 x10^3/uL (140-400) Neutrophils (%) (Auto) 84 % (31-73) Lymphocytes (%) (Auto) 8 % (24-48) Monocytes (%) (Auto) 9 % (0-9) Eosinophils (%) (Auto) 0 % (0-3) Basophils (%) (Auto) 0 % (0-3) Neutrophils # (Auto) 8.2 x10^3/uL (1.8-7.7) Lymphocytes # (Auto) 0.7 x10^3/uL (1.0-4.8) Monocytes # (Auto) 0.8 x10^3/uL (0.0-1.1) Eosinophils # (Auto) 0.0 x10^3/uL (0.0-0.7) Basophils # (Auto) 0.0 x10^3/uL (0.0-0.2) Sodium Level 134 mmol/L (136-145) Potassium Level 4.7 mmol/L (3.5-5.1) Chloride Level 101 mmol/L (98-107) Carbon Dioxide Level 21 mmol/L (21-32) Anion Gap 12 (6-14) Blood Urea Nitrogen 45 mg/dL (7-20) Creatinine 1.8 mg/dL (0.6-1.0) Estimated GFR (Cockcroft-Gault) 32.7 Glucose Level 140 mg/dL (70-99) Calcium Level 8.1 mg/dL (8.5-10.1) Glucose (Fingerstick) 132 mg/dL (70-99) Results All relevant outside records, renal labs, imaging studies, telemetry/EKG's were reviewed. RUBEN RUCKER MD Dec 21, 2018 09:52
--- NOTE | 2018-12-21 11:16 | PDOC ---
PROGRESS NOTES Subjective Subjective feels better. passed flatus. abdominal pain much improved. AAS shows mild increase in small bowel distention with small amount of gas distally. discussed with nurse who will call dr. joshi before he clamps NG tube. wbc normal. urine culture grew contaminant. lab reviewed. creatinine improved to 1.8. NG output reviewed. potassium up to 4.7 and will remove kcl from iv fluids. has pain in left knee OA and discussed with dr. norton who will inject it. Objective Objective Vital Signs Date Time Temp Pulse Resp B/P (MAP) Pulse Ox O2 Delivery O2 Flow Rate FiO2 12/21/18 09:24 Room Air 12/21/18 07:00 98.6 94 16 101/51 (68) 94 98.6 Intake and Output 12/21/18 07:00 Intake Total 2000 ml Output Total 2500 ml Balance -500 ml Intake Oral 0 ml IV Total 2000 ml Output Urine Total 500 ml Gastric Drainage Total 800 ml Drainage Total 1200 ml Physical Exam Abdomen: Soft, Other (minimal epigastric tenderness. no guarding. bowel sounds decreasaed. not distended.) Heart: Normal S1, Normal S2 Extremities: No edema General: Alert HEENT: Atraumatic Lungs: Other (decreased breath sounds in bases) Neuro: Normal speech Psych/Mental Status: Mental status NL Skin: No rashes Assessment Assessment Problems. Suspect partial small-bowel obstruction.vs. ileus 2. Acute kidney injury better on top of chronic kidney disease stage 3. serum creatinine closer to baseline of 1.4 3. Hypertension. 4. Hyperlipidemia. 5. Chronic atrial fibrillation with a controlled VR. off of anticoagulation in case she needs surgery osteoarthritis left knee 6. Chronic gout. 7. History of a left nephrectomy. pyuria. urine culture negative low grade fever mild leukocytosis resolved Medical Problems: (1) Epigastric pain Status: Acute (2) Epigastric pain Status: Acute (3) Nausea Status: Acute (4) Nausea Status: Acute (5) Small bowel obstruction Status: Acute Plan Plan of Care nurse to call dr. joshi concerning todays AAS repeat AAS and labs tomorrow consult dr. norton to inject left knee await dr. craig input decrease iv fluids and d/c KCL voltaren gel to left knee Comment Review of Relevant I have reviewed the following items rubia (where applicable) has been applied. Labs Laboratory Tests Test 12/19/18 12:18 12/20/18 00:06 12/20/18 03:45 12/20/18 12:56 Glucose (Fingerstick) 133 mg/dL (70-99) 109 mg/dL (70-99) 87 mg/dL (70-99) White Blood Count 12.9 x10^3/uL (4.0-11.0) Red Blood Count 4.17 x10^6/uL (3.50-5.40) Hemoglobin 12.8 g/dL (12.0-15.5) Hematocrit 39.1 % (36.0-47.0) Mean Corpuscular Volume 94 fL (79-100) Mean Corpuscular Hemoglobin 31 pg (25-35) Mean Corpuscular Hemoglobin Concent 33 g/dL (31-37) Red Cell Distribution Width 14.0 % (11.5-14.5) Platelet Count 138 x10^3/uL (140-400) Neutrophils (%) (Auto) 86 % (31-73) Lymphocytes (%) (Auto) 7 % (24-48) Monocytes (%) (Auto) 7 % (0-9) Eosinophils (%) (Auto) 0 % (0-3) Basophils (%) (Auto) 0 % (0-3) Neutrophils # (Auto) 11.1 x10^3/uL (1.8-7.7) Lymphocytes # (Auto) 1.0 x10^3/uL (1.0-4.8) Monocytes # (Auto) 0.8 x10^3/uL (0.0-1.1) Eosinophils # (Auto) 0.0 x10^3/uL (0.0-0.7) Basophils # (Auto) 0.0 x10^3/uL (0.0-0.2) Prothrombin Time 14.8 SEC (11.7-14.0) Prothromb Time International Ratio 1.2 (0.8-1.1) Sodium Level 137 mmol/L (136-145) Potassium Level 3.6 mmol/L (3.5-5.1) Chloride Level 102 mmol/L (98-107) Carbon Dioxide Level 26 mmol/L (21-32) Anion Gap 9 (6-14) Blood Urea Nitrogen 46 mg/dL (7-20) Creatinine 2.2 mg/dL (0.6-1.0) Estimated GFR (Cockcroft-Gault) 25.9 BUN/Creatinine Ratio 21 (6-20) Glucose Level 136 mg/dL (70-99) Calcium Level 8.4 mg/dL (8.5-10.1) Total Bilirubin 1.1 mg/dL (0.2-1.0) Aspartate Amino Transf (AST/SGOT) 20 U/L (15-37) Alanine Aminotransferase (ALT/SGPT) 17 U/L (14-59) Alkaline Phosphatase 50 U/L (46-116) Total Protein 7.2 g/dL (6.4-8.2) Albumin 2.6 g/dL (3.4-5.0) Albumin/Globulin Ratio 0.6 (1.0-1.7) Test 12/20/18 18:16 12/20/18 20:34 12/21/18 00:16 12/21/18 04:35 Glucose (Fingerstick) 122 mg/dL (70-99) 114 mg/dL (70-99) 121 mg/dL (70-99) White Blood Count 9.8 x10^3/uL (4.0-11.0) Red Blood Count 3.98 x10^6/uL (3.50-5.40) Hemoglobin 12.3 g/dL (12.0-15.5) Hematocrit 37.9 % (36.0-47.0) Mean Corpuscular Volume 95 fL (79-100) Mean Corpuscular Hemoglobin 31 pg (25-35) Mean Corpuscular Hemoglobin Concent 33 g/dL (31-37) Red Cell Distribution Width 14.1 % (11.5-14.5) Platelet Count 130 x10^3/uL (140-400) Neutrophils (%) (Auto) 84 % (31-73) Lymphocytes (%) (Auto) 8 % (24-48) Monocytes (%) (Auto) 9 % (0-9) Eosinophils (%) (Auto) 0 % (0-3) Basophils (%) (Auto) 0 % (0-3) Neutrophils # (Auto) 8.2 x10^3/uL (1.8-7.7) Lymphocytes # (Auto) 0.7 x10^3/uL (1.0-4.8) Monocytes # (Auto) 0.8 x10^3/uL (0.0-1.1) Eosinophils # (Auto) 0.0 x10^3/uL (0.0-0.7) Basophils # (Auto) 0.0 x10^3/uL (0.0-0.2) Sodium Level 134 mmol/L (136-145) Potassium Level 4.7 mmol/L (3.5-5.1) Chloride Level 101 mmol/L (98-107) Carbon Dioxide Level 21 mmol/L (21-32) Anion Gap 12 (6-14) Blood Urea Nitrogen 45 mg/dL (7-20) Creatinine 1.8 mg/dL (0.6-1.0) Estimated GFR (Cockcroft-Gault) 32.7 Glucose Level 140 mg/dL (70-99) Calcium Level 8.1 mg/dL (8.5-10.1) Test 12/21/18 06:13 Glucose (Fingerstick) 132 mg/dL (70-99) Laboratory Tests Test 12/20/18 12:56 12/20/18 18:16 12/20/18 20:34 12/21/18 00:16 Glucose (Fingerstick) 87 mg/dL (70-99) 122 mg/dL (70-99) 114 mg/dL (70-99) 121 mg/dL (70-99) Test 12/21/18 04:35 12/21/18 06:13 White Blood Count 9.8 x10^3/uL (4.0-11.0) Red Blood Count 3.98 x10^6/uL (3.50-5.40) Hemoglobin 12.3 g/dL (12.0-15.5) Hematocrit 37.9 % (36.0-47.0) Mean Corpuscular Volume 95 fL (79-100) Mean Corpuscular Hemoglobin 31 pg (25-35) Mean Corpuscular Hemoglobin Concent 33 g/dL (31-37) Red Cell Distribution Width 14.1 % (11.5-14.5) Platelet Count 130 x10^3/uL (140-400) Neutrophils (%) (Auto) 84 % (31-73) Lymphocytes (%) (Auto) 8 % (24-48) Monocytes (%) (Auto) 9 % (0-9) Eosinophils (%) (Auto) 0 % (0-3) Basophils (%) (Auto) 0 % (0-3) Neutrophils # (Auto) 8.2 x10^3/uL (1.8-7.7) Lymphocytes # (Auto) 0.7 x10^3/uL (1.0-4.8) Monocytes # (Auto) 0.8 x10^3/uL (0.0-1.1) Eosinophils # (Auto) 0.0 x10^3/uL (0.0-0.7) Basophils # (Auto) 0.0 x10^3/uL (0.0-0.2) Sodium Level 134 mmol/L (136-145) Potassium Level 4.7 mmol/L (3.5-5.1) Chloride Level 101 mmol/L (98-107) Carbon Dioxide Level 21 mmol/L (21-32) Anion Gap 12 (6-14) Blood Urea Nitrogen 45 mg/dL (7-20) Creatinine 1.8 mg/dL (0.6-1.0) Estimated GFR (Cockcroft-Gault) 32.7 Glucose Level 140 mg/dL (70-99) Calcium Level 8.1 mg/dL (8.5-10.1) Glucose (Fingerstick) 132 mg/dL (70-99) Microbiology 12/18/18 Urine Culture - Final, Complete 12/18/18 Urine Culture Result 1 (ALEJANDRINA) - Final, Complete Medications Current Medications Ondansetron HCl (Zofran) 4 mg 1X ONCE IM ; Start 12/16/18 at 09:30; Stop 12/16/18 at 09:31; Status DC Fentanyl Citrate (Fentanyl 2ml Vial) 75 mcg 1X ONCE IVP Last administered on 12/16/18at 09:46; Start 12/16/18 at 09:45; Stop 12/16/18 at 09:46; Status DC Ondansetron HCl (Zofran) 4 mg 1X ONCE IVP Last administered on 12/16/18at 09:51; Start 12/16/18 at 10:00; Stop 12/16/18 at 10:01; Status DC Sodium Chloride 1,000 ml @ 1,000 mls/hr 1X ONCE IV Last administered on 12/16/18at 10:40; Start 12/16/18 at 10:15; Stop 12/16/18 at 11:14; Status DC Clonidine HCl (Catapres) 0.1 mg 1X ONCE PO Last administered on 12/16/18at 15:12; Start 12/16/18 at 14:15; Stop 12/16/18 at 14:16; Status DC Fentanyl Citrate (Fentanyl 2ml Vial) 75 mcg 1X ONCE IVP ; Start 12/16/18 at 15:15; Stop 12/16/18 at 15:16; Status DC Ondansetron HCl (Zofran) 4 mg PRN Q8HRS PRN IV NAUSEA/VOMITING; Start 12/16/18 at 15:15; Stop 12/16/18 at 17:10; Status DC Fentanyl Citrate (Fentanyl 2ml Vial) 50 mcg PRN Q1HR PRN IV PAIN Last administered on 12/17/18at 07:28; Start 12/16/18 at 15:15; Stop 12/17/18 at 15:14; Status DC Sodium Chloride 1,000 ml @ 125 mls/hr Q8H IV ; Start 12/16/18 at 15:10; Stop 12/16/18 at 17:26; Status DC Acetaminophen (Tylenol) 650 mg PRN Q4HRS PRN PO FEVER; Start 12/16/18 at 15:15; Stop 12/17/18 at 15:14; Status DC Potassium Chloride/Dextrose/ Sod Cl 1,000 ml @ 100 mls/hr Q10H IV Last administered on 12/18/18at 01:27; Start 12/16/18 at 17:00; Stop 12/18/18 at 10:34; Status DC Ondansetron HCl (Zofran) 4 mg PRN Q6HRS PRN IVP NAUSEA/VOMITING Last administered on 12/18/18at 21:17; Start 12/16/18 at 17:00 Hydralazine HCl (Apresoline Inj) 10 mg PRN Q6HRS PRN IVP ELEVATED BP, SEE COMMENTS Last administered on 12/18/18at 15:08; Start 12/17/18 at 01:00 Enoxaparin Sodium (Lovenox 100mg Syringe) 100 mg DAILY SQ Last administered on 12/17/18at 12:49; Start 12/17/18 at 10:30; Stop 12/19/18 at 09:14; Status DC Info (Anti-Coagulation Monitoring By Pharmacy) 1 each PRN DAILY PRN MC SEE COMMENTS Last administered on 12/18/18at 10:42; Start 12/17/18 at 10:15 Pantoprazole Sodium (PROTONIX VIAL for IV PUSH) 40 mg DAILYAC IVP Last administered on 12/21/18at 08:53; Start 12/17/18 at 10:30 Acetaminophen (Tylenol Supp) 650 mg PRN Q6HRS PRN ID HEADACHE / TEMP; Start 12/17/18 at 10:00 Fentanyl Citrate (Fentanyl 2ml Vial) 50 mcg PRN Q4HRS PRN IVP PAIN Last administered on 12/21/18at 08:54; Start 12/17/18 at 10:00 Insulin Human Lispro (HumaLOG) 0-6 UNITS BG 300-399... Q6HRS SQ ; Start 12/17/18 at 12:00; Stop 12/17/18 at 10:24; Status DC Ceftriaxone Sodium (Rocephin) 1 gm Q24H IVP Last administered on 12/20/18at 11:00; Start 12/18/18 at 11:00 Dextrose/Sodium Chloride 1,000 ml @ 150 mls/hr Q6H40M IV Last administered on 12/20/18at 03:00; Start 12/18/18 at 10:30; Stop 12/20/18 at 09:52; Status DC Bupivacaine HCl/ Epinephrine Bitart (Sensorcain-Epi 0.5%-1:786223 Mpf) 30 ml 1X ONCE INJ ; Start 12/18/18 at 15:00; Stop 12/18/18 at 15:01; Status Cancel Bupivacaine HCl/ Epinephrine Bitart (Sensorcain-Epi 0.5%-1:402703 Mpf) 30 ml 1X ONCE INJ ; Start 12/19/18 at 06:00; Stop 12/19/18 at 06:01; Status DC Ondansetron HCl (Zofran) 4 mg PRN Q6HRS PRN IV NAUSEA/VOMITING; Start 12/19/18 at 07:00; Stop 12/20/18 at 06:59; Status DC Fentanyl Citrate (Fentanyl 2ml Vial) 25 mcg PRN Q5MIN PRN IV MILD PAIN 1-3; Start 12/19/18 at 07:00; Stop 12/20/18 at 06:59; Status DC Fentanyl Citrate (Fentanyl 2ml Vial) 50 mcg PRN Q5MIN PRN IV MODERATE TO SEVERE PAIN; Start 12/19/18 at 07:00; Stop 12/20/18 at 06:59; Status DC Morphine Sulfate (Morphine Sulfate) 1 mg PRN Q10MIN PRN IV SEVERE PAIN 7-10; Start 12/19/18 at 07:00; Stop 12/20/18 at 06:59; Status DC Ringer's Solution 1,000 ml @ 30 mls/hr Q24H IV ; Start 12/19/18 at 07:00; Stop 12/19/18 at 18:59; Status DC Lidocaine HCl (Xylocaine-Mpf 1% 2ml Vial) 2 ml PRN 1X PRN ID PRIOR TO IV START; Start 12/19/18 at 07:00; Stop 12/20/18 at 06:59; Status DC Hydromorphone HCl (Dilaudid) 0.5 mg PRN Q10MIN PRN IV SEV PAIN, Second choice; Start 12/19/18 at 07:00; Stop 12/20/18 at 06:59; Status DC Prochlorperazine Edisylate (Compazine) 5 mg PACU PRN PRN IV NAUSEA, MRX1; Start 12/19/18 at 07:00; Stop 12/20/18 at 06:59; Status DC Phytonadione 10 mg/Dextrose 51 ml @ 102 mls/hr 1X ONCE IV Last administered on 12/19/18at 10:37; Start 12/19/18 at 09:15; Stop 12/19/18 at 09:44; Status DC Potassium Chloride/Dextrose/ Sod Cl 1,000 ml @ 150 mls/hr Q6H40M IV Last administered on 12/21/18at 03:26; Start 12/20/18 at 11:00; Stop 12/21/18 at 11:06; Status DC Lidocaine HCl (Lidocaine Pf 2% Vial) 5 ml STK-MED ONCE .ROUTE ; Start 12/20/18 at 11:14; Stop 12/20/18 at 11:14; Status DC Neostigmine Methylsulfate (Bloxiverz) 10 mg STK-MED ONCE .ROUTE ; Start 12/20/18 at 11:16; Stop 12/20/18 at 11:17; Status DC Rocuronium [place] (Zemuron) 50 mg STK-MED ONCE .ROUTE ; Start 12/20/18 at 11:17; Stop 12/20/18 at 11:17; Status DC Fentanyl Citrate (Fentanyl 2ml Vial) 100 mcg STK-MED ONCE .ROUTE ; Start 12/20/18 at 11:17; Stop 12/20/18 at 11:18; Status DC Midazolam HCl (Versed) 2 mg STK-MED ONCE .ROUTE ; Start 12/20/18 at 11:17; Stop 12/20/18 at 11:18; Status DC Glycopyrrolate (Robinul) 1 mg STK-MED ONCE .ROUTE ; Start 12/20/18 at 11:17; Stop 12/20/18 at 11:18; Status DC Succinylcholine Chloride (Anectine) 200 mg STK-MED ONCE .ROUTE ; Start 12/20/18 at 11:21; Stop 12/20/18 at 11:21; Status DC Diclofenac Sodium (Voltaren) 1 marilyn QID TP ; Start 12/21/18 at 13:00; Status UNV Active Scripts Active Reported Losartan Potassium 100 Mg Tablet 100 Mg PO DAILY Multi-Vitamin Daily (Multivitamin) 1 Each Tablet 1 Tab PO DAILY 30 Days Coumadin (Warfarin Sodium) 4 Mg Tablet 3.5 Mg PO DAILY Atorvastatin Calcium 20 Mg Tablet 1 Tab PO DAILY Toprol Xl (Metoprolol Succinate) 50 Mg Tab.er.24h 25 Mg PO DAILY Amlodipine Besylate 10 Mg Tablet 10 Mg PO DAILY Uloric (Febuxostat) 40 Mg Tablet 1 Tab PO DAILY Detrol La (Tolterodine Tartrate) 4 Mg Cap.er.24h 1 Cap PO DAILY Vitals/I & O Vital Sign - Last 24 Hours 12/20/18 12/20/18 12/20/18 12/21/18 15:00 19:00 23:00 03:00 Temp 98.4 97.9 99.1 99.5 98.4 97.9 99.1 99.5 Pulse 86 83 90 84 Resp 18 20 20 22 B/P (MAP) 139/81 (100) 152/78 (102) 151/88 (109) 151/71 (97) Pulse Ox 96 95 98 96 O2 Delivery Room Air Room Air Room Air Room Air 12/21/18 12/21/18 12/21/18 07:00 08:54 09:24 Temp 98.6 98.6 Pulse 94 Resp 16 B/P (MAP) 101/51 (68) Pulse Ox 94 O2 Delivery Room Air Room Air Room Air Intake and Output 12/20/18 12/20/18 12/21/18 15:00 23:00 07:00 Intake Total 0 ml 1000 ml 1000 ml Output Total 400 ml 350 ml 1750 ml Balance -400 ml 650 ml -750 ml LAURA CROOKS MD Dec 21, 2018 11:16
--- NOTE | 2018-12-21 11:45 | CONS ---
DATE OF CONSULTATION: ATTENDING PHYSICIAN: Duane Cedeno MD REASON FOR CONSULTATION: The patient was seen at the request of Dr. Cedeno for rehab evaluation. HISTORY OF PRESENT ILLNESS: This is an 83-year-old female known to me from the past. The patient with chronic atrial fibrillation, on Coumadin; hypertension; hyperlipidemia; gouty arthritis; left nephrectomy for kidney stone disease and also had chronic kidney disease, stage 3. The patient was admitted on 12/16/2018 with epigastric abdominal pain, some back pain, nausea and vomiting. Last bowel movement was on 12/15/2018. She was admitted through the Emergency Room and had ultrasound of the abdomen, which showed no gallstones. CT scan of the abdomen and pelvis revealed dilatation of the small bowel loops without transitional zone, probably mild ileus or partial small-bowel obstruction. The patient admits that she is passing gasses some now. She still had an NG tube in place. She admits since the hospitalization, she is having significant left knee pain interfering with her mobility and even hurting when she is lying down. The patient had injection done by me several years ago and she also had Dr. Newman gave injections in the past. She does not remember how long ago last injection. ALLERGIES: THE PATIENT WITH KNOWN ALLERGIC TO IODINE OR IODINE-CONTAINING PRODUCTS, TRAMADOL UPSETS HER STOMACH, ALLOPURINOL CAUSES RASH. SOCIAL HISTORY: The patient lives alone. No stairs per her to manage. She had a cane to walk. She has been independent with her mobility and motor aspects of her self-care prior to the present hospitalization. PAST MEDICAL HISTORY: Also includes abdominal hysterectomy, bilateral salpingo-oophorectomy, tonsillectomy. Echocardiogram done in 09/2017 revealed moderate aortic regurgitation, moderate mitral regurgitation, moderate tricuspid regurgitation and moderate pulmonary hypertension and left ventricular ejection fraction about 70%. The patient had acute abdominal series done today, which revealed moderate cardiomegaly; small bowel distended, mildly increased; less gas distally. PHYSICAL EXAMINATION: The patient on physical examination today revealed an elderly female. She is alert, oriented to time, place, person and circumstance and follows commands appropriately, moves all 4 extremities voluntarily where she had 4+/5 grade muscle strength. Deep tendon reflexes are decreased to absent at both knees and ankles. She had equal perception of touch and pinprick sensation bilaterally. She had crepitus on range of motion of both knee joints with knee joint effusion, especially on the left side. She had about 25 degrees of loss of full left knee extension on the left knee and also some limitation of left knee flexion when compared to right side. She had some tenderness to palpation over sacroiliac joint area and straight leg raising test is negative bilaterally. She requires help with bed mobility and transfers. ASSESSMENT: Painful degenerative joint disease of left knee degenerative joints of her right knee; flexion contracture, left knee; chronic lower back pain from degenerative disk disease of lumbar vertebrae; clinical evidence of peripheral neuropathy. The patient was admitted for small-bowel obstruction. The patient with known chronic atrial fibrillation, on anticoagulation; hypertension; hyperlipidemia; chronic gout; chronic kidney disease, stage 3. RECOMMENDATION: To proceed with injecting painful left knee joint, which I performed under aseptic skin technique after skin preparation using alcohol swab using 2 mL of 0.25% Marcaine solution mixed with 1 mL of Depo-Medrol 40 mg per 1 mL solution and she tolerated the procedure satisfactorily without any side effects. To consider providing her left knee brace to help with her flexion contracture of left knee. Dr. Cedeno, appreciate asking me to participate in the care of this interesting patient. I will be glad to see her for followup with you on as-needed basis. ERIKA NELSON MD DR: SIVAN/angus JOB#: [id number] / [id number]
[2018-12-21] MEDS ORDERED: methylPREDNISolone ACETATE 40 MG/ML VIAL. IM ONE (12:00)
[2018-12-21] MEDS ORDERED: BUPIVACAINE MPF 0.25% 10 ML VIAL. IJ ONE (12:00)
[2018-12-21] MEDS: cefTRIAXone IV Push 1 GM VIAL. IVP SCH (12:42)
[2018-12-21] MEDS: IV DEXTROSE 5 %-0.45 % NACL 1,000 ML IV SCH ×2 (12:43→21:20)
[2018-12-21] MEDS: DICLOFENAC SODIUM 1% TOPICAL GEL 100GM TUBE. TP SCH ×3 (14:10→21:22)
--- NOTE | 2018-12-21 16:15 | NUR ---
SW following pt. Spoke with Pt who is still NPO and has NG tube. Pt states she just wants to go home once she is able to take things by mouth. Pt declined SNF, unable to SNF eval until PO status is addressed. Pt agreeable with [facility] services [place]. Nurse Navigator from [facility] to meet with pt. SW will continue to follow.
--- NOTE | 2018-12-21 17:02 | NUR ---
Dr Cedeno called re: pt's meds. Suggested Lovonox 30 mg SQ daily for preventative DVT or Lovenox 1,g/kg SQ Q12H to tx a-fib, but stated it was up to Dr. Rojas due to potential surgery. Spoke with Dr. Rojas, he stated he would prefer Heparin, suggested 5000 units Q12H but wanted Dr Cedeno to make final determination of dose. LVM with Dr. Cedeno's office.
[2018-12-22 03:00] VITALS: BP 182/83
[2018-12-22] MEDS: hydrALAZINE 20 MG/ML VIAL. IVP PRN (03:07)
[2018-12-22] MEDS: IV DEXTROSE 5 %-0.45 % NACL 1,000 ML IV SCH ×2 (05:48→12:49)
[2018-12-22 07:00] VITALS: BP 172/75
[2018-12-22 07:24] LABS: BASO % 0 % (0-3); EOS % 0 % (0-3); HEMATOCRIT 36.1 % (36.0-47.0); HEMOGLOBIN 11.9 g/dL (12.0-15.5); LYMPH # 0.6 x10^3/uL (1.0-4.8); LYMPH % 5 % (24-48); MEAN CORPUSCULAR HEMOGLOBIN 31 pg (25-35); MEAN CORPUSCULAR HGB CONC 33 g/dL (31-37); MEAN CORPUSCULAR VOLUME 93 fL (79-100); MONO # 0.6 x10^3/uL (0.0-1.1); MONO % 6 % (0-9); NEUT # 10.1 x10^3/uL (1.8-7.7); NEUT % 89 % (31-73); PLATELET COUNT 150 x10^3/uL (140-400); RED BLOOD COUNT 3.89 x10^6/uL (3.50-5.40); RED CELL DISTRIBUTION WIDTH 13.6 % (11.5-14.5); WHITE BLOOD COUNT 11.3 x10^3/uL (4.0-11.0)
[2018-12-22 07:33] LABS: ALBUMIN 2.3 g/dL (3.4-5.0); ALBUMIN/GLOBULIN RATIO 0.4 (1.0-1.7); CALCIUM 8.6 mg/dL (8.5-10.1); CREATININE 1.7 mg/dL (0.6-1.0); GFR 34.9; POTASSIUM 4.1 mmol/L (3.5-5.1); TOTAL BILIRUBIN 0.8 mg/dL (0.2-1.0); TOTAL PROTEIN 7.5 g/dL (6.4-8.2)
[2018-12-22 07:53] LABS: PROTHROMBIN TIME PATIENT 15.2 SEC (11.7-14.0)
[2018-12-22] MEDS: PANTOPRAZOLE IV PUSH 40 MG VIAL. IVP SCH (08:12)
[2018-12-22] MEDS: DICLOFENAC SODIUM 1% TOPICAL GEL 100GM TUBE. TP SCH ×4 (08:14→22:05)
--- NOTE | 2018-12-22 08:58 | PDOC ---
Subjective: Subjective: "I'm here." Had a bowel movement yesterday. Says Dr. Rojas is supposed to be back today. Objective: Objective: D/w nurse - stooled yesterday, NG still to LIS. Tmax 100.2 Vital Signs: Vital Signs Date Time Temp Pulse Resp B/P (MAP) Pulse Ox O2 Delivery O2 Flow Rate FiO2 12/22/18 03:07 95 182/83 12/22/18 03:00 98.2 18 98 Nasal Cannula 2.0 98.2 Labs: Laboratory Tests Test 12/21/18 11:34 12/22/18 02:14 12/22/18 06:52 Glucose (Fingerstick) 95 mg/dL 185 mg/dL White Blood Count 11.3 x10^3/uL Red Blood Count 3.89 x10^6/uL Hemoglobin 11.9 g/dL Hematocrit 36.1 % Mean Corpuscular Volume 93 fL Mean Corpuscular Hemoglobin 31 pg Mean Corpuscular Hemoglobin Concent 33 g/dL Red Cell Distribution Width 13.6 % Platelet Count 150 x10^3/uL Neutrophils (%) (Auto) 89 % Lymphocytes (%) (Auto) 5 % Monocytes (%) (Auto) 6 % Eosinophils (%) (Auto) 0 % Basophils (%) (Auto) 0 % Neutrophils # (Auto) 10.1 x10^3/uL Lymphocytes # (Auto) 0.6 x10^3/uL Monocytes # (Auto) 0.6 x10^3/uL Eosinophils # (Auto) 0.0 x10^3/uL Basophils # (Auto) 0.0 x10^3/uL Sodium Level 135 mmol/L Potassium Level 4.1 mmol/L Chloride Level 102 mmol/L Carbon Dioxide Level 23 mmol/L Anion Gap 10 Blood Urea Nitrogen 37 mg/dL Creatinine 1.7 mg/dL Estimated GFR (Cockcroft-Gault) 34.9 BUN/Creatinine Ratio 22 Glucose Level 155 mg/dL Calcium Level 8.6 mg/dL Total Bilirubin 0.8 mg/dL Aspartate Amino Transf (AST/SGOT) 20 U/L Alanine Aminotransferase (ALT/SGPT) 17 U/L Alkaline Phosphatase 49 U/L Total Protein 7.5 g/dL Albumin 2.3 g/dL Albumin/Globulin Ratio 0.4 Imaging: Knee X-ray 12/21 pending PE: GEN: NAD HEENT: ~300cc in NG canister - bilious LUNGS: room air HEART: RRR ABD: soft, non-tender, non-distended NEURO/PSYCH: A & O 3 A/P: SBO vs ileus HTN -- ?clamp NG and try clears - has been NPO since 12/16 NATHANIEL SMALL Dec 22, 2018 08:58
--- NOTE | 2018-12-22 09:47 | PDOC ---
Infectious Disease Note Subjective: Subjective pt says feels slightly better Lt knee pain is better since steroid inj had a bm T max 100.2 d/w rn ROS: ROS Negative otherwise. Vital Signs: Vital Signs Vital Signs Date Time Temp Pulse Resp B/P (MAP) Pulse Ox O2 Delivery O2 Flow Rate FiO2 12/22/18 03:07 95 182/83 12/22/18 03:00 98.2 18 98 Nasal Cannula 2.0 98.2 Physical Exam: PHYSICAL EXAM GENERAL: Alert, oriented x 3, pleasant female, lying comfortably in bed, in no acute distress. HEENT: Normocephalic, atraumatic. NG tube with bilious output. NECK: Supple, no JVD. LUNGS: Clear bilaterally. HEART: Irregularly irregular. ABDOMEN: Soft, mild tenderness in the right upper quadrant, otherwise no rebound, no guarding. EXTREMITIES: No edema, no cyanosis. DERMATOLOGIC: Warm, dry. No generalized rash. NEUROLOGIC: Alert and oriented x 3, grossly nonfocal. GENITOURINARY: Sheldon in place. Medications: Inpatient Meds: Current Medications Medications (Trade) Dose Ordered Sig/Nimco Start Time Stop Time Status Last Admin Dose Admin Acetaminophen (Tylenol Supp) 650 mg PRN Q6HRS PRN 12/17/18 10:00 Acetaminophen (Tylenol) 650 mg PRN Q4HRS PRN 12/16/18 15:15 12/17/18 15:14 DC Bupivacaine HCl (Sensorcaine-Mpf 0.25%) 10 ml 1X ONCE 12/21/18 12:00 12/21/18 12:01 DC 12/21/18 12:00 10 ML Bupivacaine HCl/ Epinephrine Bitart (Sensorcain-Epi 0.5%-1:703706 Mpf) 30 ml 1X ONCE 12/19/18 06:00 12/19/18 06:01 DC Ceftriaxone Sodium (Rocephin) 1 gm Q24H 12/18/18 11:00 12/21/18 12:42 1 GM Clonidine HCl (Catapres) 0.1 mg 1X ONCE 12/16/18 14:15 12/16/18 14:16 DC 12/16/18 15:12 0.1 MG Dextrose/Sodium Chloride 1,000 ml @ 125 mls/hr Q8H 12/21/18 11:15 12/22/18 05:48 125 MLS/HR Diclofenac Sodium (Voltaren) 1 marilyn QID 12/21/18 13:00 12/22/18 08:14 1 MARILYN Enoxaparin Sodium (Lovenox 100mg Syringe) 100 mg DAILY 12/17/18 10:30 12/19/18 09:14 DC 12/17/18 12:49 100 MG Fentanyl Citrate (Fentanyl 2ml Vial) 100 mcg STK-MED ONCE 12/20/18 11:17 12/20/18 11:18 DC Glycopyrrolate (Robinul) 1 mg STK-MED ONCE 12/20/18 11:17 12/20/18 11:18 DC Hydralazine HCl (Apresoline Inj) 10 mg PRN Q6HRS PRN 12/17/18 01:00 12/22/18 03:07 10 MG Hydromorphone HCl (Dilaudid) 0.5 mg PRN Q10MIN PRN 12/19/18 07:00 12/20/18 06:59 DC Info (Anti-Coagulation Monitoring By Pharmacy) 1 each PRN DAILY PRN 12/17/18 10:15 12/18/18 10:42 1 EACH Insulin Human Lispro (HumaLOG) 0-6 UNITS BG 300-399... Q6HRS 12/17/18 12:00 12/17/18 10:24 DC Lidocaine HCl (Lidocaine Pf 2% Vial) 5 ml STK-MED ONCE 12/20/18 11:14 12/20/18 11:14 DC Lidocaine HCl (Xylocaine-Mpf 1% 2ml Vial) 2 ml PRN 1X PRN 12/19/18 07:00 12/20/18 06:59 DC Methylprednisolone Acetate (DEPO-Medrol 40MG VIAL) 40 mg 1X ONCE 12/21/18 12:00 12/21/18 12:01 DC 12/21/18 12:00 40 MG Midazolam HCl (Versed) 2 mg STK-MED ONCE 12/20/18 11:17 12/20/18 11:18 DC Morphine Sulfate (Morphine Sulfate) 1 mg PRN Q10MIN PRN 12/19/18 07:00 12/20/18 06:59 DC Neostigmine Methylsulfate (Bloxiverz) 10 mg STK-MED ONCE 12/20/18 11:16 12/20/18 11:17 DC Ondansetron HCl (Zofran) 4 mg PRN Q6HRS PRN 12/19/18 07:00 12/20/18 06:59 DC Pantoprazole Sodium (PROTONIX VIAL for IV PUSH) 40 mg DAILYAC 12/17/18 10:30 12/22/18 08:12 40 MG Phytonadione 10 mg/Dextrose 51 ml @ 102 mls/hr 1X ONCE 12/19/18 09:15 12/19/18 09:44 DC 12/19/18 10:37 102 MLS/HR Potassium Chloride/Dextrose/ Sod Cl 1,000 ml @ 150 mls/hr Q6H40M 12/20/18 11:00 12/21/18 11:06 DC 12/21/18 03:26 150 MLS/HR Prochlorperazine Edisylate (Compazine) 5 mg PACU PRN PRN 12/19/18 07:00 12/20/18 06:59 DC Ringer's Solution 1,000 ml @ 30 mls/hr Q24H 12/19/18 07:00 12/19/18 18:59 DC Rocuronium [place] (Zemuron) 50 mg STK-MED ONCE 12/20/18 11:17 12/20/18 11:17 DC Sodium Chloride 1,000 ml @ 125 mls/hr Q8H 12/16/18 15:10 12/16/18 17:26 DC Succinylcholine Chloride (Anectine) 200 mg STK-MED ONCE 12/20/18 11:21 12/20/18 11:21 DC Labs: Lab Laboratory Tests Test 12/21/18 11:34 12/22/18 02:14 12/22/18 06:52 Glucose (Fingerstick) 95 mg/dL (70-99) 185 mg/dL (70-99) White Blood Count 11.3 x10^3/uL (4.0-11.0) Red Blood Count 3.89 x10^6/uL (3.50-5.40) Hemoglobin 11.9 g/dL (12.0-15.5) Hematocrit 36.1 % (36.0-47.0) Mean Corpuscular Volume 93 fL (79-100) Mean Corpuscular Hemoglobin 31 pg (25-35) Mean Corpuscular Hemoglobin Concent 33 g/dL (31-37) Red Cell Distribution Width 13.6 % (11.5-14.5) Platelet Count 150 x10^3/uL (140-400) Neutrophils (%) (Auto) 89 % (31-73) Lymphocytes (%) (Auto) 5 % (24-48) Monocytes (%) (Auto) 6 % (0-9) Eosinophils (%) (Auto) 0 % (0-3) Basophils (%) (Auto) 0 % (0-3) Neutrophils # (Auto) 10.1 x10^3/uL (1.8-7.7) Lymphocytes # (Auto) 0.6 x10^3/uL (1.0-4.8) Monocytes # (Auto) 0.6 x10^3/uL (0.0-1.1) Eosinophils # (Auto) 0.0 x10^3/uL (0.0-0.7) Basophils # (Auto) 0.0 x10^3/uL (0.0-0.2) Prothrombin Time 15.2 SEC (11.7-14.0) Prothromb Time International Ratio 1.2 (0.8-1.1) Sodium Level 135 mmol/L (136-145) Potassium Level 4.1 mmol/L (3.5-5.1) Chloride Level 102 mmol/L (98-107) Carbon Dioxide Level 23 mmol/L (21-32) Anion Gap 10 (6-14) Blood Urea Nitrogen 37 mg/dL (7-20) Creatinine 1.7 mg/dL (0.6-1.0) Estimated GFR (Cockcroft-Gault) 34.9 BUN/Creatinine Ratio 22 (6-20) Glucose Level 155 mg/dL (70-99) Calcium Level 8.6 mg/dL (8.5-10.1) Total Bilirubin 0.8 mg/dL (0.2-1.0) Aspartate Amino Transf (AST/SGOT) 20 U/L (15-37) Alanine Aminotransferase (ALT/SGPT) 17 U/L (14-59) Alkaline Phosphatase 49 U/L (46-116) Total Protein 7.5 g/dL (6.4-8.2) Albumin 2.3 g/dL (3.4-5.0) Albumin/Globulin Ratio 0.4 (1.0-1.7) Micro UC pending CT A/P FINDINGS: Pleural-based right anterior and left posterior lung base opacities likely atelectasis or scarring. Heart size is grossly unremarkable. Unopacified liver, spleen, gallbladder and pancreas are normal. Both adrenal glands and right kidney appears normal. Left kidney is not seen and is absent either surgically or congenitally. Mild dilation of small bowel loops seen in the central abdomen without definite transition. No inflammatory changes are seen. Small ventral abdominal wall hernia containing omental fat There is scattered stool in the colon. The urinary bladder is decompressed. Uterus is either atrophic or surgically absent. IMPRESSION: Mild dilation of small bowel loops in the central abdomen without a definite transition. Findings may be related to mild ileus pattern or partial small bowel obstruction. Correlate clinically. Close clinical and radiographic follow-up recommended. Scattered stool throughout the colon likely constipation. Objective: Assessment: 1. Leukocytosis, likely multifactorial from ileus versus small bowel obstruction versus urinary tract infection. 2. Urinary retention, with Sheldon in place this admission 3. Chronic abdominal pain, with nausea and vomiting on presentation. 4. Acute kidney injury on chronic kidney disease, with underlying left nephrectomy. 5. Ileus versus small bowel obstruction, NG tube with bilious drainage. 6. Pyuria UC lactobacillus Plan: Plan of Care Dc Rocephijenni start zosyn Gen surgery following Follow up cultures and labs. Continue supportive care. Maintain aspiration precaution. JEROME SAWYER MD Dec 22, 2018 09:47
--- NOTE | 2018-12-22 09:47 | PDOC ---
PROGRESS NOTES Subjective Subjective She feels better with left knee joint pain. Objective Objective Vital Signs Date Time Temp Pulse Resp B/P (MAP) Pulse Ox O2 Delivery O2 Flow Rate FiO2 12/22/18 03:07 95 182/83 12/22/18 03:00 98.2 18 98 Nasal Cannula 2.0 98.2 Intake and Output 12/22/18 06:59 Intake Total 2000 ml Output Total 2600 ml Balance -600 ml Intake Oral 0 ml IV Total 2000 ml Output Urine Total 850 ml Drainage Total 1750 ml # Bowel Movements 1 Physical Exam Physical Exam She is alert,supine in bed and seems comfortable and moving her left knee without much pain. She had NG tube in place. Assessment Assessment Problems Medical Problems: (1) Epigastric pain Status: Acute (2) Epigastric pain Status: Acute (3) Nausea Status: Acute (4) Nausea Status: Acute (5) Small bowel obstruction Status: Acute Plan Plan of Care To encourage her to get more and to consider hinge knee brace if knee joint pain persists. Comment Review of Relevant I have reviewed the following items rubia (where applicable) has been applied. Labs Laboratory Tests Test 12/20/18 12:56 12/20/18 18:16 12/20/18 20:34 12/21/18 00:16 Glucose (Fingerstick) 87 mg/dL (70-99) 122 mg/dL (70-99) 114 mg/dL (70-99) 121 mg/dL (70-99) Test 12/21/18 04:35 12/21/18 06:13 12/21/18 11:34 12/22/18 02:14 White Blood Count 9.8 x10^3/uL (4.0-11.0) Red Blood Count 3.98 x10^6/uL (3.50-5.40) Hemoglobin 12.3 g/dL (12.0-15.5) Hematocrit 37.9 % (36.0-47.0) Mean Corpuscular Volume 95 fL (79-100) Mean Corpuscular Hemoglobin 31 pg (25-35) Mean Corpuscular Hemoglobin Concent 33 g/dL (31-37) Red Cell Distribution Width 14.1 % (11.5-14.5) Platelet Count 130 x10^3/uL (140-400) Neutrophils (%) (Auto) 84 % (31-73) Lymphocytes (%) (Auto) 8 % (24-48) Monocytes (%) (Auto) 9 % (0-9) Eosinophils (%) (Auto) 0 % (0-3) Basophils (%) (Auto) 0 % (0-3) Neutrophils # (Auto) 8.2 x10^3/uL (1.8-7.7) Lymphocytes # (Auto) 0.7 x10^3/uL (1.0-4.8) Monocytes # (Auto) 0.8 x10^3/uL (0.0-1.1) Eosinophils # (Auto) 0.0 x10^3/uL (0.0-0.7) Basophils # (Auto) 0.0 x10^3/uL (0.0-0.2) Sodium Level 134 mmol/L (136-145) Potassium Level 4.7 mmol/L (3.5-5.1) Chloride Level 101 mmol/L (98-107) Carbon Dioxide Level 21 mmol/L (21-32) Anion Gap 12 (6-14) Blood Urea Nitrogen 45 mg/dL (7-20) Creatinine 1.8 mg/dL (0.6-1.0) Estimated GFR (Cockcroft-Gault) 32.7 Glucose Level 140 mg/dL (70-99) Calcium Level 8.1 mg/dL (8.5-10.1) Glucose (Fingerstick) 132 mg/dL (70-99) 95 mg/dL (70-99) 185 mg/dL (70-99) Test 12/22/18 06:52 White Blood Count 11.3 x10^3/uL (4.0-11.0) Red Blood Count 3.89 x10^6/uL (3.50-5.40) Hemoglobin 11.9 g/dL (12.0-15.5) Hematocrit 36.1 % (36.0-47.0) Mean Corpuscular Volume 93 fL (79-100) Mean Corpuscular Hemoglobin 31 pg (25-35) Mean Corpuscular Hemoglobin Concent 33 g/dL (31-37) Red Cell Distribution Width 13.6 % (11.5-14.5) Platelet Count 150 x10^3/uL (140-400) Neutrophils (%) (Auto) 89 % (31-73) Lymphocytes (%) (Auto) 5 % (24-48) Monocytes (%) (Auto) 6 % (0-9) Eosinophils (%) (Auto) 0 % (0-3) Basophils (%) (Auto) 0 % (0-3) Neutrophils # (Auto) 10.1 x10^3/uL (1.8-7.7) Lymphocytes # (Auto) 0.6 x10^3/uL (1.0-4.8) Monocytes # (Auto) 0.6 x10^3/uL (0.0-1.1) Eosinophils # (Auto) 0.0 x10^3/uL (0.0-0.7) Basophils # (Auto) 0.0 x10^3/uL (0.0-0.2) Prothrombin Time 15.2 SEC (11.7-14.0) Prothromb Time International Ratio 1.2 (0.8-1.1) Sodium Level 135 mmol/L (136-145) Potassium Level 4.1 mmol/L (3.5-5.1) Chloride Level 102 mmol/L (98-107) Carbon Dioxide Level 23 mmol/L (21-32) Anion Gap 10 (6-14) Blood Urea Nitrogen 37 mg/dL (7-20) Creatinine 1.7 mg/dL (0.6-1.0) Estimated GFR (Cockcroft-Gault) 34.9 BUN/Creatinine Ratio 22 (6-20) Glucose Level 155 mg/dL (70-99) Calcium Level 8.6 mg/dL (8.5-10.1) Total Bilirubin 0.8 mg/dL (0.2-1.0) Aspartate Amino Transf (AST/SGOT) 20 U/L (15-37) Alanine Aminotransferase (ALT/SGPT) 17 U/L (14-59) Alkaline Phosphatase 49 U/L (46-116) Total Protein 7.5 g/dL (6.4-8.2) Albumin 2.3 g/dL (3.4-5.0) Albumin/Globulin Ratio 0.4 (1.0-1.7) Laboratory Tests Test 12/21/18 11:34 12/22/18 02:14 12/22/18 06:52 Glucose (Fingerstick) 95 mg/dL (70-99) 185 mg/dL (70-99) White Blood Count 11.3 x10^3/uL (4.0-11.0) Red Blood Count 3.89 x10^6/uL (3.50-5.40) Hemoglobin 11.9 g/dL (12.0-15.5) Hematocrit 36.1 % (36.0-47.0) Mean Corpuscular Volume 93 fL (79-100) Mean Corpuscular Hemoglobin 31 pg (25-35) Mean Corpuscular Hemoglobin Concent 33 g/dL (31-37) Red Cell Distribution Width 13.6 % (11.5-14.5) Platelet Count 150 x10^3/uL (140-400) Neutrophils (%) (Auto) 89 % (31-73) Lymphocytes (%) (Auto) 5 % (24-48) Monocytes (%) (Auto) 6 % (0-9) Eosinophils (%) (Auto) 0 % (0-3) Basophils (%) (Auto) 0 % (0-3) Neutrophils # (Auto) 10.1 x10^3/uL (1.8-7.7) Lymphocytes # (Auto) 0.6 x10^3/uL (1.0-4.8) Monocytes # (Auto) 0.6 x10^3/uL (0.0-1.1) Eosinophils # (Auto) 0.0 x10^3/uL (0.0-0.7) Basophils # (Auto) 0.0 x10^3/uL (0.0-0.2) Prothrombin Time 15.2 SEC (11.7-14.0) Prothromb Time International Ratio 1.2 (0.8-1.1) Sodium Level 135 mmol/L (136-145) Potassium Level 4.1 mmol/L (3.5-5.1) Chloride Level 102 mmol/L (98-107) Carbon Dioxide Level 23 mmol/L (21-32) Anion Gap 10 (6-14) Blood Urea Nitrogen 37 mg/dL (7-20) Creatinine 1.7 mg/dL (0.6-1.0) Estimated GFR (Cockcroft-Gault) 34.9 BUN/Creatinine Ratio 22 (6-20) Glucose Level 155 mg/dL (70-99) Calcium Level 8.6 mg/dL (8.5-10.1) Total Bilirubin 0.8 mg/dL (0.2-1.0) Aspartate Amino Transf (AST/SGOT) 20 U/L (15-37) Alanine Aminotransferase (ALT/SGPT) 17 U/L (14-59) Alkaline Phosphatase 49 U/L (46-116) Total Protein 7.5 g/dL (6.4-8.2) Albumin 2.3 g/dL (3.4-5.0) Albumin/Globulin Ratio 0.4 (1.0-1.7) Microbiology 12/18/18 Urine Culture - Final, Complete 12/18/18 Urine Culture Result 1 (ALEJANDRINA) - Final, Complete Medications Current Medications Ondansetron HCl (Zofran) 4 mg 1X ONCE IM ; Start 12/16/18 at 09:30; Stop 12/16/18 at 09:31; Status DC Fentanyl Citrate (Fentanyl 2ml Vial) 75 mcg 1X ONCE IVP Last administered on 12/16/18at 09:46; Start 12/16/18 at 09:45; Stop 12/16/18 at 09:46; Status DC Ondansetron HCl (Zofran) 4 mg 1X ONCE IVP Last administered on 12/16/18at 09:51; Start 12/16/18 at 10:00; Stop 12/16/18 at 10:01; Status DC Sodium Chloride 1,000 ml @ 1,000 mls/hr 1X ONCE IV Last administered on 12/16/18at 10:40; Start 12/16/18 at 10:15; Stop 12/16/18 at 11:14; Status DC Clonidine HCl (Catapres) 0.1 mg 1X ONCE PO Last administered on 12/16/18at 15:12; Start 12/16/18 at 14:15; Stop 12/16/18 at 14:16; Status DC Fentanyl Citrate (Fentanyl 2ml Vial) 75 mcg 1X ONCE IVP ; Start 12/16/18 at 15:15; Stop 12/16/18 at 15:16; Status DC Ondansetron HCl (Zofran) 4 mg PRN Q8HRS PRN IV NAUSEA/VOMITING; Start 12/16/18 at 15:15; Stop 12/16/18 at 17:10; Status DC Fentanyl Citrate (Fentanyl 2ml Vial) 50 mcg PRN Q1HR PRN IV PAIN Last administ ered on 12/17/18at 07:28; Start 12/16/18 at 15:15; Stop 12/17/18 at 15:14; Status DC Sodium Chloride 1,000 ml @ 125 mls/hr Q8H IV ; Start 12/16/18 at 15:10; Stop 12/16/18 at 17:26; Status DC Acetaminophen (Tylenol) 650 mg PRN Q4HRS PRN PO FEVER; Start 12/16/18 at 15:15; Stop 12/17/18 at 15:14; Status DC Potassium Chloride/Dextrose/ Sod Cl 1,000 ml @ 100 mls/hr Q10H IV Last administered on 12/18/18at 01:27; Start 12/16/18 at 17:00; Stop 12/18/18 at 10:34; Status DC Ondansetron HCl (Zofran) 4 mg PRN Q6HRS PRN IVP NAUSEA/VOMITING Last administered on 12/18/18at 21:17; Start 12/16/18 at 17:00 Hydralazine HCl (Apresoline Inj) 10 mg PRN Q6HRS PRN IVP ELEVATED BP, SEE COMMENTS Last administered on 12/22/18 03:07; Start 12/17/18 at 01:00 Enoxaparin Sodium (Lovenox 100mg Syringe) 100 mg DAILY SQ Last administered on 12/17/18 12:49; Start 12/17/18 at 10:30; Stop 12/19/18 at 09:14; Status DC Info (Anti-Coagulation Monitoring By Pharmacy) 1 each PRN DAILY PRN MC SEE COMMENTS Last administered on 12/18/18at 10:42; Start 12/17/18 at 10:15 Pantoprazole Sodium (PROTONIX VIAL for IV PUSH) 40 mg DAILYAC IVP Last administered on 12/22/18 08:12; Start 12/17/18 at 10:30 Acetaminophen (Tylenol Supp) 650 mg PRN Q6HRS PRN [place] HEADACHE / TEMP; Start 12/17/18 at 10:00 Fentanyl Citrate (Fentanyl 2ml Vial) 50 mcg PRN Q4HRS PRN IVP PAIN Last administered on 12/21/18at 08:54; Start 12/17/18 at 10:00 Insulin Human Lispro (HumaLOG) 0-6 UNITS BG 300-399... Q6HRS SQ ; Start 12/17/18 at 12:00; Stop 12/17/18 at 10:24; Status DC Ceftriaxone Sodium (Rocephin) 1 gm Q24H IVP Last administered on 12/21/18at 12:42; Start 12/18/18 at 11:00 Dextrose/Sodium Chloride 1,000 ml @ 150 mls/hr Q6H40M IV Last administered on 12/20/18at 03:00; Start 12/18/18 at 10:30; Stop 12/20/18 at 09:52; Status DC Bupivacaine HCl/ Epinephrine Bitart (Sensorcain-Epi 0.5%-1:175018 Mpf) 30 ml 1X ONCE INJ ; Start 12/18/18 at 15:00; Stop 12/18/18 at 15:01; Status Cancel Bupivacaine HCl/ Epinephrine Bitart (Sensorcain-Epi 0.5%-1:623261 Mpf) 30 ml 1X ONCE INJ ; Start 12/19/18 at 06:00; Stop 12/19/18 at 06:01; Status DC Ondansetron HCl (Zofran) 4 mg PRN Q6HRS PRN IV NAUSEA/VOMITING; Start 12/19/18 at 07:00; Stop 12/20/18 at 06:59; Status DC Fentanyl Citrate (Fentanyl 2ml Vial) 25 mcg PRN Q5MIN PRN IV MILD PAIN 1-3; Start 12/19/18 at 07:00; Stop 12/20/18 at 06:59; Status DC Fentanyl Citrate (Fentanyl 2ml Vial) 50 mcg PRN Q5MIN PRN IV MODERATE TO SEVERE PAIN; Start 12/19/18 at 07:00; Stop 12/20/18 at 06:59; Status DC Morphine Sulfate (Morphine Sulfate) 1 mg PRN Q10MIN PRN IV SEVERE PAIN 7-10; Start 12/19/18 at 07:00; Stop 12/20/18 at 06:59; Status DC Ringer's Solution 1,000 ml @ 30 mls/hr Q24H IV ; Start 12/19/18 at 07:00; Stop 12/19/18 at 18:59; Status DC Lidocaine HCl (Xylocaine-Mpf 1% 2ml Vial) 2 ml PRN 1X PRN ID PRIOR TO IV START; Start 12/19/18 at 07:00; Stop 12/20/18 at 06:59; Status DC Hydromorphone HCl (Dilaudid) 0.5 mg PRN Q10MIN PRN IV SEV PAIN, Second choice; Start 12/19/18 at 07:00; Stop 12/20/18 at 06:59; Status DC Prochlorperazine Edisylate (Compazine) 5 mg PACU PRN PRN IV NAUSEA, MRX1; Start 12/19/18 at 07:00; Stop 12/20/18 at 06:59; Status DC Phytonadione 10 mg/Dextrose 51 ml @ 102 mls/hr 1X ONCE IV Last administered on 12/19/18at 10:37; Start 12/19/18 at 09:15; Stop 12/19/18 at 09:44; Status DC Potassium Chloride/Dextrose/ Sod Cl 1,000 ml @ 150 mls/hr Q6H40M IV Last administered on 12/21/18at 03:26; Start 12/20/18 at 11:00; Stop 12/21/18 at 11:06; Status DC Lidocaine HCl (Lidocaine Pf 2% Vial) 5 ml STK-MED ONCE .ROUTE ; Start 12/20/18 at 11:14; Stop 12/20/18 at 11:14; Status DC Neostigmine Methylsulfate (Bloxiverz) 10 mg STK-MED ONCE .ROUTE ; Start 12/20/18 at 11:16; Stop 12/20/18 at 11:17; Status DC Rocuronium [place] (Zemuron) 50 mg STK-MED ONCE .ROUTE ; Start 12/20/18 at 11:17; Stop 12/20/18 at 11:17; Status DC Fentanyl Citrate (Fentanyl 2ml Vial) 100 mcg STK-MED ONCE .ROUTE ; Start 12/20/18 at 11:17; Stop 12/20/18 at 11:18; Status DC Midazolam HCl (Versed) 2 mg STK-MED ONCE .ROUTE ; Start 12/20/18 at 11:17; Stop 12/20/18 at 11:18; Status DC Glycopyrrolate (Robinul) 1 mg STK-MED ONCE .ROUTE ; Start 12/20/18 at 11:17; Stop 12/20/18 at 11:18; Status DC Succinylcholine Chloride (Anectine) 200 mg STK-MED ONCE .ROUTE ; Start 12/20/18 at 11:21; Stop 12/20/18 at 11:21; Status DC Diclofenac Sodium (Voltaren) 1 marilyn QID TP Last administered on 12/22/18at 08:14; Start 12/21/18 at 13:00 Dextrose/Sodium Chloride 1,000 ml @ 125 mls/hr Q8H IV Last administered on 12/22/18at 05:48; Start 12/21/18 at 11:15 Methylprednisolone Acetate (DEPO-Medrol 40MG VIAL) 40 mg 1X ONCE IM Last administered on 12/21/18at 12:00; Start 12/21/18 at 12:00; Stop 12/21/18 at 12:01; Status DC Bupivacaine HCl (Sensorcaine-Mpf 0.25%) 10 ml 1X ONCE IJ Last administered on 12/21/18at 12:00; Start 12/21/18 at 12:00; Stop 12/21/18 at 12:01; Status DC Active Scripts Active Reported Losartan Potassium 100 Mg Tablet 100 Mg PO DAILY Multi-Vitamin Daily (Multivitamin) 1 Each Tablet 1 Tab PO DAILY 30 Days Coumadin (Warfarin Sodium) 4 Mg Tablet 3.5 Mg PO DAILY Atorvastatin Calcium 20 Mg Tablet 1 Tab PO DAILY Toprol Xl (Metoprolol Succinate) 50 Mg Tab.er.24h 25 Mg PO DAILY Amlodipine Besylate 10 Mg Tablet 10 Mg PO DAILY Uloric (Febuxostat) 40 Mg Tablet 1 Tab PO DAILY Detrol La (Tolterodine Tartrate) 4 Mg Cap.er.24h 1 Cap PO DAILY Vitals/I & O Vital Sign - Last 24 Hours 12/21/18 12/21/18 12/21/18 12/21/18 11:00 14:56 16:14 19:00 Temp 98.5 98.4 99.0 98.5 98.4 99.0 Pulse 73 93 86 89 Resp 16 18 18 B/P (MAP) 100/52 (68) 80/33 (49) 127/63 (84) 124/84 (97) Pulse Ox 90 94 100 97 O2 Delivery Room Air Room Air Room Air Room Air 12/21/18 12/21/18 12/22/18/25/19 20:00 23:00 03:00 03:07 Temp 100.2 98.2 100.2 98.2 Pulse 87 95 95 Resp 18 18 B/P (MAP) 104/35 (58) 182/83 (116) 182/83 Pulse Ox 98 98 O2 Delivery Room Air Nasal Cannula Nasal Cannula O2 Flow Rate 2.0 2.0 Intake and Output 12/21/18 12/21/18 12/22/18 14:59 22:59 06:59 Intake Total 1000 ml 1000 ml Output Total 1400 ml 1200 ml Balance -400 ml -200 ml ERIKA NELSON MD Dec 22, 2018 09:47
--- NOTE | 2018-12-22 09:57 | PDOC ---
PROGRESS NOTES Subjective Subjective feels better. she had a BM yesterday and passing flatus. temp 100.2 yesterday and changed to iv zosyn.per ID. left knee pain better post left knee injection. wbc slightly higher. creatinine improved to 1.7. denies abdominal pain. Objective Objective Vital Signs Date Time Temp Pulse Resp B/P (MAP) Pulse Ox O2 Delivery O2 Flow Rate FiO2 12/22/18 03:07 95 182/83 12/22/18 03:00 98.2 18 98 Nasal Cannula 2.0 98.2 Intake and Output 12/22/18 07:00 Intake Total 2000 ml Output Total 2600 ml Balance -600 ml Intake Oral 0 ml IV Total 2000 ml Output Urine Total 850 ml Drainage Total 1750 ml # Bowel Movements 1 Physical Exam Abdomen: Normal bowel sounds, Soft, No tenderness, Other Heart: Normal S1, Normal S2 Extremities: No edema General: Alert HEENT: Atraumatic Lungs: Clear to auscultation Neuro: Normal speech Psych/Mental Status: Mental status NL Skin: No rashes Assessment Assessment ProblemsSuspect partial small-bowel obstruction.vs. ileus 2. Acute kidney injury better on top of chronic kidney disease stage 3. serum creatinine closer to baseline of 1.4 3. Hypertension. 4. Hyperlipidemia. 5. Chronic atrial fibrillation with a controlled VR. off of anticoagulation in case she needs surgery osteoarthritis left knee 6. Chronic gout. 7. History of a left nephrectomy. pyuria. urine culture negative low grade fever mild leukocytosis possibly due to steroid knee injection vs other. Medical Problems: (1) Epigastric pain Status: Acute (2) Epigastric pain Status: Acute (3) Nausea Status: Acute (4) Nausea Status: Acute (5) Small bowel obstruction Status: Acute Plan Plan of Care await dr. craig input about clamping NG tube and advancing to clear liquids and defer to him when anticoagulation can resume acute abdominal series report pending lab tomorrow continue iv zosyn incentive spirometry PT and OT continue iv fluids discussed with dr.A. Tate ID Comment Review of Relevant I have reviewed the following items rubia (where applicable) has been applied. Labs Laboratory Tests Test 12/20/18 12:56 12/20/18 18:16 12/20/18 20:34 12/21/18 00:16 Glucose (Fingerstick) 87 mg/dL (70-99) 122 mg/dL (70-99) 114 mg/dL (70-99) 121 mg/dL (70-99) Test 12/21/18 04:35 12/21/18 06:13 12/21/18 11:34 12/22/18 02:14 White Blood Count 9.8 x10^3/uL (4.0-11.0) Red Blood Count 3.98 x10^6/uL (3.50-5.40) Hemoglobin 12.3 g/dL (12.0-15.5) Hematocrit 37.9 % (36.0-47.0) Mean Corpuscular Volume 95 fL (79-100) Mean Corpuscular Hemoglobin 31 pg (25-35) Mean Corpuscular Hemoglobin Concent 33 g/dL (31-37) Red Cell Distribution Width 14.1 % (11.5-14.5) Platelet Count 130 x10^3/uL (140-400) Neutrophils (%) (Auto) 84 % (31-73) Lymphocytes (%) (Auto) 8 % (24-48) Monocytes (%) (Auto) 9 % (0-9) Eosinophils (%) (Auto) 0 % (0-3) Basophils (%) (Auto) 0 % (0-3) Neutrophils # (Auto) 8.2 x10^3/uL (1.8-7.7) Lymphocytes # (Auto) 0.7 x10^3/uL (1.0-4.8) Monocytes # (Auto) 0.8 x10^3/uL (0.0-1.1) Eosinophils # (Auto) 0.0 x10^3/uL (0.0-0.7) Basophils # (Auto) 0.0 x10^3/uL (0.0-0.2) Sodium Level 134 mmol/L (136-145) Potassium Level 4.7 mmol/L (3.5-5.1) Chloride Level 101 mmol/L (98-107) Carbon Dioxide Level 21 mmol/L (21-32) Anion Gap 12 (6-14) Blood Urea Nitrogen 45 mg/dL (7-20) Creatinine 1.8 mg/dL (0.6-1.0) Estimated GFR (Cockcroft-Gault) 32.7 Glucose Level 140 mg/dL (70-99) Calcium Level 8.1 mg/dL (8.5-10.1) Glucose (Fingerstick) 132 mg/dL (70-99) 95 mg/dL (70-99) 185 mg/dL (70-99) Test 12/22/18 06:52 White Blood Count 11.3 x10^3/uL (4.0-11.0) Red Blood Count 3.89 x10^6/uL (3.50-5.40) Hemoglobin 11.9 g/dL (12.0-15.5) Hematocrit 36.1 % (36.0-47.0) Mean Corpuscular Volume 93 fL (79-100) Mean Corpuscular Hemoglobin 31 pg (25-35) Mean Corpuscular Hemoglobin Concent 33 g/dL (31-37) Red Cell Distribution Width 13.6 % (11.5-14.5) Platelet Count 150 x10^3/uL (140-400) Neutrophils (%) (Auto) 89 % (31-73) Lymphocytes (%) (Auto) 5 % (24-48) Monocytes (%) (Auto) 6 % (0-9) Eosinophils (%) (Auto) 0 % (0-3) Basophils (%) (Auto) 0 % (0-3) Neutrophils # (Auto) 10.1 x10^3/uL (1.8-7.7) Lymphocytes # (Auto) 0.6 x10^3/uL (1.0-4.8) Monocytes # (Auto) 0.6 x10^3/uL (0.0-1.1) Eosinophils # (Auto) 0.0 x10^3/uL (0.0-0.7) Basophils # (Auto) 0.0 x10^3/uL (0.0-0.2) Prothrombin Time 15.2 SEC (11.7-14.0) Prothromb Time International Ratio 1.2 (0.8-1.1) Sodium Level 135 mmol/L (136-145) Potassium Level 4.1 mmol/L (3.5-5.1) Chloride Level 102 mmol/L (98-107) Carbon Dioxide Level 23 mmol/L (21-32) Anion Gap 10 (6-14) Blood Urea Nitrogen 37 mg/dL (7-20) Creatinine 1.7 mg/dL (0.6-1.0) Estimated GFR (Cockcroft-Gault) 34.9 BUN/Creatinine Ratio 22 (6-20) Glucose Level 155 mg/dL (70-99) Calcium Level 8.6 mg/dL (8.5-10.1) Total Bilirubin 0.8 mg/dL (0.2-1.0) Aspartate Amino Transf (AST/SGOT) 20 U/L (15-37) Alanine Aminotransferase (ALT/SGPT) 17 U/L (14-59) Alkaline Phosphatase 49 U/L (46-116) Total Protein 7.5 g/dL (6.4-8.2) Albumin 2.3 g/dL (3.4-5.0) Albumin/Globulin Ratio 0.4 (1.0-1.7) Laboratory Tests Test 12/21/18 11:34 12/22/18 02:14 12/22/18 06:52 Glucose (Fingerstick) 95 mg/dL (70-99) 185 mg/dL (70-99) White Blood Count 11.3 x10^3/uL (4.0-11.0) Red Blood Count 3.89 x10^6/uL (3.50-5.40) Hemoglobin 11.9 g/dL (12.0-15.5) Hematocrit 36.1 % (36.0-47.0) Mean Corpuscular Volume 93 fL (79-100) Mean Corpuscular Hemoglobin 31 pg (25-35) Mean Corpuscular Hemoglobin Concent 33 g/dL (31-37) Red Cell Distribution Width 13.6 % (11.5-14.5) Platelet Count 150 x10^3/uL (140-400) Neutrophils (%) (Auto) 89 % (31-73) Lymphocytes (%) (Auto) 5 % (24-48) Monocytes (%) (Auto) 6 % (0-9) Eosinophils (%) (Auto) 0 % (0-3) Basophils (%) (Auto) 0 % (0-3) Neutrophils # (Auto) 10.1 x10^3/uL (1.8-7.7) Lymphocytes # (Auto) 0.6 x10^3/uL (1.0-4.8) Monocytes # (Auto) 0.6 x10^3/uL (0.0-1.1) Eosinophils # (Auto) 0.0 x10^3/uL (0.0-0.7) Basophils # (Auto) 0.0 x10^3/uL (0.0-0.2) Prothrombin Time 15.2 SEC (11.7-14.0) Prothromb Time International Ratio 1.2 (0.8-1.1) Sodium Level 135 mmol/L (136-145) Potassium Level 4.1 mmol/L (3.5-5.1) Chloride Level 102 mmol/L (98-107) Carbon Dioxide Level 23 mmol/L (21-32) Anion Gap 10 (6-14) Blood Urea Nitrogen 37 mg/dL (7-20) Creatinine 1.7 mg/dL (0.6-1.0) Estimated GFR (Cockcroft-Gault) 34.9 BUN/Creatinine Ratio 22 (6-20) Glucose Level 155 mg/dL (70-99) Calcium Level 8.6 mg/dL (8.5-10.1) Total Bilirubin 0.8 mg/dL (0.2-1.0) Aspartate Amino Transf (AST/SGOT) 20 U/L (15-37) Alanine Aminotransferase (ALT/SGPT) 17 U/L (14-59) Alkaline Phosphatase 49 U/L (46-116) Total Protein 7.5 g/dL (6.4-8.2) Albumin 2.3 g/dL (3.4-5.0) Albumin/Globulin Ratio 0.4 (1.0-1.7) Microbiology 12/18/18 Urine Culture - Final, Complete 12/18/18 Urine Culture Result 1 (ALEJANDRINA) - Final, Complete Medications Current Medications Ondansetron HCl (Zofran) 4 mg 1X ONCE IM ; Start 12/16/18 at 09:30; Stop 12/16/18 at 09:31; Status DC Fentanyl Citrate (Fentanyl 2ml Vial) 75 mcg 1X ONCE IVP Last administered on 12/16/18at 09:46; Start 12/16/18 at 09:45; Stop 12/16/18 at 09:46; Status DC Ondansetron HCl (Zofran) 4 mg 1X ONCE IVP Last administered on 12/16/18at 09:51; Start 12/16/18 at 10:00; Stop 12/16/18 at 10:01; Status DC Sodium Chloride 1,000 ml @ 1,000 mls/hr 1X ONCE IV Last administered on 12/16/18at 10:40; Start 12/16/18 at 10:15; Stop 12/16/18 at 11:14; Status DC Clonidine HCl (Catapres) 0.1 mg 1X ONCE PO Last administered on 12/16/18at 15:12; Start 12/16/18 at 14:15; Stop 12/16/18 at 14:16; Status DC Fentanyl Citrate (Fentanyl 2ml Vial) 75 mcg 1X ONCE IVP ; Start 12/16/18 at 15:15; Stop 12/16/18 at 15:16; Status DC Ondansetron HCl (Zofran) 4 mg PRN Q8HRS PRN IV NAUSEA/VOMITING; Start 12/16/18 at 15:15; Stop 12/16/18 at 17:10; Status DC Fentanyl Citrate (Fentanyl 2ml Vial) 50 mcg PRN Q1HR PRN IV PAIN Last administered on 12/17/18at 07:28; Start 12/16/18 at 15:15; Stop 12/17/18 at 15:14; Status DC Sodium Chloride 1,000 ml @ 125 mls/hr Q8H IV ; Start 12/16/18 at 15:10; Stop 12/16/18 at 17:26; Status DC Acetaminophen (Tylenol) 650 mg PRN Q4HRS PRN PO FEVER; Start 12/16/18 at 15:15; Stop 12/17/18 at 15:14; Status DC Potassium Chloride/Dextrose/ Sod Cl 1,000 ml @ 100 mls/hr Q10H IV Last administered on 12/18/18at 01:27; Start 12/16/18 at 17:00; Stop 12/18/18 at 10:34; Status DC Ondansetron HCl (Zofran) 4 mg PRN Q6HRS PRN IVP NAUSEA/VOMITING Last administered on 12/18/18at 21:17; Start 12/16/18 at 17:00 Hydralazine HCl (Apresoline Inj) 10 mg PRN Q6HRS PRN IVP ELEVATED BP, SEE COMMENTS Last administered on 12/22/18at 03:07; Start 12/17/18 at 01:00 Enoxaparin Sodium (Lovenox 100mg Syringe) 100 mg DAILY SQ Last administered on 12/17/18at 12:49; Start 12/17/18 at 10:30; Stop 12/19/18 at 09:14; Status DC Info (Anti-Coagulation Monitoring By Pharmacy) 1 each PRN DAILY PRN MC SEE COMMENTS Last administered on 12/18/18at 10:42; Start 12/17/18 at 10:15 Pantoprazole Sodium (PROTONIX VIAL for IV PUSH) 40 mg DAILYAC IVP Last administered on 12/22/18at 08:12; Start 12/17/18 at 10:30 Acetaminophen (Tylenol Supp) 650 mg PRN Q6HRS PRN [place] HEADACHE / TEMP; Start 12/17/18 at 10:00 Fentanyl Citrate (Fentanyl 2ml Vial) 50 mcg PRN Q4HRS PRN IVP PAIN Last administered on 12/21/18at 08:54; Start 12/17/18 at 10:00 Insulin Human Lispro (HumaLOG) 0-6 UNITS BG 300-399... Q6HRS SQ ; Start 9 at 12:00; Stop 12/17/18 at 10:24; Status DC Ceftriaxone Sodium (Rocephin) 1 gm Q24H IVP Last administered on 12/21/18at 12: 42; Start 12/18/18 at 11:00 Dextrose/Sodium Chloride 1,000 ml @ 150 mls/hr Q6H40M IV Last administered on 12/20/18at 03:00; Start 12/18/18 at 10:30; Stop 12/20/18 at 09:52; Status DC Bupivacaine HCl/ Epinephrine Bitart (Sensorcain-Epi 0.5%-1:479413 Mpf) 30 ml 1X ONCE INJ ; Start 12/18/18 at 15:00; Stop 12/18/18 at 15:01; Status Cancel Bupivacaine HCl/ Epinephrine Bitart (Sensorcain-Epi 0.5%-1:101321 Mpf) 30 ml 1X ONCE INJ ; Start 12/19/18 at 06:00; Stop 12/19/18 at 06:01; Status DC Ondansetron HCl (Zofran) 4 mg PRN Q6HRS PRN IV NAUSEA/VOMITING; Start 12/19/18 at 07:00; Stop 12/20/18 at 06:59; Status DC Fentanyl Citrate (Fentanyl 2ml Vial) 25 mcg PRN Q5MIN PRN IV MILD PAIN 1-3; Start 12/19/18 at 07:00; Stop 12/20/18 at 06:59; Status DC Fentanyl Citrate (Fentanyl 2ml Vial) 50 mcg PRN Q5MIN PRN IV MODERATE TO SEVERE PAIN; Start 12/19/18 at 07:00; Stop 12/20/18 at 06:59; Status DC Morphine Sulfate (Morphine Sulfate) 1 mg PRN Q10MIN PRN IV SEVERE PAIN 7-10; Start 12/19/18 at 07:00; Stop 12/20/18 at 06:59; Status DC Ringer's Solution 1,000 ml @ 30 mls/hr Q24H IV ; Start 12/19/18 at 07:00; Stop 12/19/18 at 18:59; Status DC Lidocaine HCl (Xylocaine-Mpf 1% 2ml Vial) 2 ml PRN 1X PRN ID PRIOR TO IV START; Start 12/19/18 at 07:00; Stop 12/20/18 at 06:59; Status DC Hydromorphone HCl (Dilaudid) 0.5 mg PRN Q10MIN PRN IV SEV PAIN, Second choice; Start 12/19/18 at 07:00; Stop 12/20/18 at 06:59; Status DC Prochlorperazine Edisylate (Compazine) 5 mg PACU PRN PRN IV NAUSEA, MRX1; Start 12/19/18 at 07:00; Stop 12/20/18 at 06:59; Status DC Phytonadione 10 mg/Dextrose 51 ml @ 102 mls/hr 1X ONCE IV Last administered on 12/19/18at 10:37; Start 12/19/18 at 09:15; Stop 12/19/18 at 09:44; Status DC Potassium Chloride/Dextrose/ Sod Cl 1,000 ml @ 150 mls/hr Q6H40M IV Last administered on 12/21/18at 03:26; Start 12/20/18 at 11:00; Stop 12/21/18 at 11:06; Status DC Lidocaine HCl (Lidocaine Pf 2% Vial) 5 ml STK-MED ONCE .ROUTE ; Start 12/20/18 at 11:14; Stop 12/20/18 at 11:14; Status DC Neostigmine Methylsulfate (Bloxiverz) 10 mg STK-MED ONCE .ROUTE ; Start 12/20/18 at 11:16; Stop 12/20/18 at 11:17; Status DC Rocuronium [place] (Zemuron) 50 mg STK-MED ONCE .ROUTE ; Start 12/20/18 at 11:17; Stop 12/20/18 at 11:17; Status DC Fentanyl Citrate (Fentanyl 2ml Vial) 100 mcg STK-MED ONCE .ROUTE ; Start 12/20/18 at 11:17; Stop 12/20/18 at 11:18; Status DC Midazolam HCl (Versed) 2 mg STK-MED ONCE .ROUTE ; Start 12/20/18 at 11:17; Stop 12/20/18 at 11:18; Status DC Glycopyrrolate (Robinul) 1 mg STK-MED ONCE .ROUTE ; Start 12/20/18 at 11:17; Stop 12/20/18 at 11:18; Status DC Succinylcholine Chloride (Anectine) 200 mg STK-MED ONCE .ROUTE ; Start 12/20/18 at 11:21; Stop 12/20/18 at 11:21; Status DC Diclofenac Sodium (Voltaren) 1 marilyn QID TP Last administered on 12/22/18at 08:14; Start 12/21/18 at 13:00 Dextrose/Sodium Chloride 1,000 ml @ 125 mls/hr Q8H IV Last administered on 12/22/18at 05:48; Start 12/21/18 at 11:15 Methylprednisolone Acetate (DEPO-Medrol 40MG VIAL) 40 mg 1X ONCE IM Last administered on 12/21/18at 12:00; Start 12/21/18 at 12:00; Stop 12/21/18 at 12:01; Status DC Bupivacaine HCl (Sensorcaine-Mpf 0.25%) 10 ml 1X ONCE IJ Last administered on 12/21/18at 12:00; Start 12/21/18 at 12:00; Stop 12/21/18 at 12:01; Status DC Active Scripts Active Reported Losartan Potassium 100 Mg Tablet 100 Mg PO DAILY Multi-Vitamin Daily (Multivitamin) 1 Each Tablet 1 Tab PO DAILY 30 Days Coumadin (Warfarin Sodium) 4 Mg Tablet 3.5 Mg PO DAILY Atorvastatin Calcium 20 Mg Tablet 1 Tab PO DAILY Toprol Xl (Metoprolol Succinate) 50 Mg Tab.er.24h 25 Mg PO DAILY Amlodipine Besylate 10 Mg Tablet 10 Mg PO DAILY Uloric (Febuxostat) 40 Mg Tablet 1 Tab PO DAILY Detrol La (Tolterodine Tartrate) 4 Mg Cap.er.24h 1 Cap PO DAILY Vitals/I & O Vital Sign - Last 24 Hours 12/21/18 12/21/18 12/21/18 12/21/18 11:00 14:56 16:14 19:00 Temp 98.5 98.4 99.0 98.5 98.4 99.0 Pulse 73 93 86 89 Resp 16 18 18 B/P (MAP) 100/52 (68) 80/33 (49) 127/63 (84) 124/84 (97) Pulse Ox 90 94 100 97 O2 Delivery Room Air Room Air Room Air Room Air 12/21/18 12/21/18 12/22/18 12/22/18 20:00 23:00 03:00 03:07 Temp 100.2 98.2 100.2 98.2 Pulse 87 95 95 Resp 18 18 B/P (MAP) 104/35 (58) 182/83 (116) 182/83 Pulse Ox 98 98 O2 Delivery Room Air Nasal Cannula Nasal Cannula O2 Flow Rate 2.0 2.0 Intake and Output 12/21/18 12/21/18 12/22/18 15:00 23:00 07:00 Intake Total 1000 ml 1000 ml Output Total 1400 ml 1200 ml Balance -400 ml -200 ml LAURA CROOKS MD Dec 22, 2018 09:57
[2018-12-22 11:00] VITALS: BP 140/71
--- NOTE | 2018-12-22 11:33 | RAD ---
EXAM: KNEE STANDING BILAT AP. HISTORY: Bilateral knee pain. COMPARISON: None. FINDINGS: There is severe tricompartmental osteoarthritis of both knees with medial compartment predominance. Both medial compartmental joint spaces are effaced with remodeling of the medial tibial plateaus. There is varus angulation bilaterally with lateral subluxation of the tibias. No fractures are identified. IMPRESSION: 1. Severe medial compartmental predominant osteoarthritis bilaterally with varus angulation. Electronically signed by: Yadiel Root MD (12/22/2018 11:30 AM) [facility]
--- NOTE | 2018-12-22 11:35 | RAD ---
EXAM: 2 VIEW ABDOMEN WITH ONE VIEW CHEST. HISTORY: Small bowel obstruction. COMPARISON: 12/21/2018. FINDINGS: A frontal view of the chest and supine/upright views of the abdomen are obtained. There is atelectasis in both bases. There is no pneumothorax or pleural effusion. The heart is moderately enlarged. Prominence of the right peritracheal stripe is likely from tortuous vasculature. There are atherosclerotic calcifications of the aorta. Lateral glenohumeral osteoarthritis is moderate. Calcified mediastinal lymph nodes are likely secondary to old granulomatous disease. A nasogastric tube has its tip in the fundus of the stomach. There is no pneumoperitoneum. Moderate small bowel distention in the midline lower abdomen persists. There is more gas distally. Changes of pelvic sling surgery are noted. IMPRESSION: 1. Moderate cardiomegaly. 2. Small bowel distention persists. There is increased gas distally. Electronically signed by: Yadiel Root MD (12/22/2018 11:32 AM) [facility]
--- NOTE | 2018-12-22 11:40 | NUR ---
SW following for discharge planning. Discussed with RN, pt NG clamped today, to determine tolerance. [facility] has accepted pt for home health upon discharge. SW will continue to follow for any discharge planning needs.
[2018-12-22] MEDS: PIPERACILLIN/TAZOBACTAM 3.375 GM in IV NORMAL SALINE 50ML 50 ML IV SCH ×2 (12:48→19:20)
--- NOTE | 2018-12-22 12:55 | PDOC ---
SUBJECTIVE ROS Stable, per GS clamp NG and advance to clear fluids OBJECTIVE Vital Signs Vital Signs Date Time Temp Pulse Resp B/P (MAP) Pulse Ox O2 Delivery O2 Flow Rate FiO2 12/22/18 11:00 98.4 79 20 140/71 (94) 97 Room Air 98.4 12/22/18 03:00 2.0 I & 0 Intake and Output 12/22/18 07:00 Intake Total 2000 ml Output Total 2600 ml Balance -600 ml Intake Oral 0 ml IV Total 2000 ml Output Urine Total 850 ml Drainage Total 1750 ml # Bowel Movements 1 PHYSICAL EXAM Physical Exam GEN- NAD HEENT: OM dry , NG tube NECK: supple HEART RRR LUNGS: Clear, Non labored ABDOMEN: Soft, obese. epigastric tenderness, but no guarding EXTREMITIES: NO LE edema SKIN: No rashes. NEUROLOGICAL: Grossly tory; - [place]+, No CVA or SP tenderness DIAGNOSIS/ASSESSMENT Assessment & Plan WILLIAMS - Suspect ATN 2//2 Poor Po intake, Vomiting, SBO , UA unremarkable, Renal US Unremarkable , renal function improving E-Lytes Stable, holding losartan Urinary retention Bladder scan with significant PVR- suppportive care, avoid Nephrotoxins, Monitor CKD stage 3 - Follows with Dr. Cavanaugh Q 6 months Solitary Kidney - S/P Lt Nephrectomy SBO- No plan for surgery currently , KUB improved per GS NG clamped today HTN- BP were low, now stable Chronic atrial fibrillation, on Coumadin Chronic gout. COMMENT/RELEVANT DATA Meds Current Medications Medications (Trade) Dose Ordered Sig/Nimco Start Time Stop Time Status Last Admin Dose Admin Acetaminophen (Tylenol Supp) 650 mg PRN Q6HRS PRN 12/17/18 10:00 Acetaminophen (Tylenol) 650 mg PRN Q4HRS PRN 12/16/18 15:15 12/17/18 15:14 DC Bupivacaine HCl (Sensorcaine-Mpf 0.25%) 10 ml 1X ONCE 12/21/18 12:00 12/21/18 12:01 DC 12/21/18 12:00 10 ML Bupivacaine HCl/ Epinephrine Bitart (Sensorcain-Epi 0.5%-1:915786 Mpf) 30 ml 1X ONCE 12/19/18 06:00 12/19/18 06:01 DC Ceftriaxone Sodium (Rocephin) 1 gm Q24H 12/18/18 11:00 12/22/18 10:07 DC 12/21/18 12:42 1 GM Clonidine HCl (Catapres) 0.1 mg 1X ONCE 12/16/18 14:15 12/16/18 14:16 DC 12/16/18 15:12 0.1 MG Dextrose/Sodium Chloride 1,000 ml @ 125 mls/hr Q8H 12/21/18 11:15 12/22/18 12:49 125 MLS/HR Diclofenac Sodium (Voltaren) 1 marilyn QID 12/21/18 13:00 12/22/18 08:14 1 MARILYN Enoxaparin Sodium (Lovenox 100mg Syringe) 100 mg DAILY 12/17/18 10:30 12/19/18 09:14 DC 12/17/18 12:49 100 MG Fentanyl Citrate (Fentanyl 2ml Vial) 100 mcg STK-MED ONCE 12/20/18 11:17 12/20/18 11:18 DC Glycopyrrolate (Robinul) 1 mg STK-MED ONCE 12/20/18 11:17 12/20/18 11:18 DC Hydralazine HCl (Apresoline Inj) 10 mg PRN Q6HRS PRN 12/17/18 01:00 12/22/18 03:07 10 MG Hydromorphone HCl (Dilaudid) 0.5 mg PRN Q10MIN PRN 12/19/18 07:00 12/20/18 06:59 DC Info (Anti-Coagulation Monitoring By Pharmacy) 1 each PRN DAILY PRN 12/17/18 10:15 12/18/18 10:42 1 EACH Insulin Human Lispro (HumaLOG) 0-6 UNITS BG 300-399... Q6HRS 12/17/18 12:00 12/17/18 10:24 DC Lidocaine HCl (Lidocaine Pf 2% Vial) 5 ml STK-MED ONCE 12/20/18 11:14 12/20/18 11:14 DC Lidocaine HCl (Xylocaine-Mpf 1% 2ml Vial) 2 ml PRN 1X PRN 12/19/18 07:00 12/20/18 06:59 DC Methylprednisolone Acetate (DEPO-Medrol 40MG VIAL) 40 mg 1X ONCE 12/21/18 12:00 12/21/18 12:01 DC 12/21/18 12:00 40 MG Midazolam HCl (Versed) 2 mg STK-MED ONCE 12/20/18 11:17 12/20/18 11:18 DC Morphine Sulfate (Morphine Sulfate) 1 mg PRN Q10MIN PRN 12/19/18 07:00 12/20/18 06:59 DC Neostigmine Methylsulfate (Bloxiverz) 10 mg STK-MED ONCE 12/20/18 11:16 12/20/18 11:17 DC Ondansetron HCl (Zofran) 4 mg PRN Q6HRS PRN 12/19/18 07:00 12/20/18 06:59 DC Pantoprazole Sodium (PROTONIX VIAL for IV PUSH) 40 mg DAILYAC 12/17/18 10:30 12/22/18 08:12 40 MG Phytonadione 10 mg/Dextrose 51 ml @ 102 mls/hr 1X ONCE 12/19/18 09:15 12/19/18 09:44 DC 12/19/18 10:37 102 MLS/HR Piperacillin Sod/ Tazobactam Sod 3.375 gm/Sodium Chloride 50 ml @ 100 mls/hr Q6HRS 12/22/18 12:00 12/22/18 12:48 100 MLS/HR Potassium Chloride/Dextrose/ Sod Cl 1,000 ml @ 150 mls/hr Q6H40M 12/20/18 11:00 12/21/18 11:06 DC 12/21/18 03:26 150 MLS/HR Prochlorperazine Edisylate (Compazine) 5 mg PACU PRN PRN 12/19/18 07:00 12/20/18 06:59 DC Ringer's Solution 1,000 ml @ 30 mls/hr Q24H 12/19/18 07:00 12/19/18 18:59 DC Rocuronium [place] (Zemuron) 50 mg STK-MED ONCE 12/20/18 11:17 12/20/18 11:17 DC Sodium Chloride 1,000 ml @ 125 mls/hr Q8H 12/16/18 15:10 12/16/18 17:26 DC Succinylcholine Chloride (Anectine) 200 mg STK-MED ONCE 12/20/18 11:21 12/20/18 11:21 DC Lab Laboratory Tests Test 12/22/18 02:14 12/22/18 06:52 12/22/18 11:51 Glucose (Fingerstick) 185 mg/dL (70-99) 143 mg/dL (70-99) White Blood Count 11.3 x10^3/uL (4.0-11.0) Red Blood Count 3.89 x10^6/uL (3.50-5.40) Hemoglobin 11.9 g/dL (12.0-15.5) Hematocrit 36.1 % (36.0-47.0) Mean Corpuscular Volume 93 fL (79-100) Mean Corpuscular Hemoglobin 31 pg (25-35) Mean Corpuscular Hemoglobin Concent 33 g/dL (31-37) Red Cell Distribution Width 13.6 % (11.5-14.5) Platelet Count 150 x10^3/uL (140-400) Neutrophils (%) (Auto) 89 % (31-73) Lymphocytes (%) (Auto) 5 % (24-48) Monocytes (%) (Auto) 6 % (0-9) Eosinophils (%) (Auto) 0 % (0-3) Basophils (%) (Auto) 0 % (0-3) Neutrophils # (Auto) 10.1 x10^3/uL (1.8-7.7) Lymphocytes # (Auto) 0.6 x10^3/uL (1.0-4.8) Monocytes # (Auto) 0.6 x10^3/uL (0.0-1.1) Eosinophils # (Auto) 0.0 x10^3/uL (0.0-0.7) Basophils # (Auto) 0.0 x10^3/uL (0.0-0.2) Prothrombin Time 15.2 SEC (11.7-14.0) Prothromb Time International Ratio 1.2 (0.8-1.1) Sodium Level 135 mmol/L (136-145) Potassium Level 4.1 mmol/L (3.5-5.1) Chloride Level 102 mmol/L (98-107) Carbon Dioxide Level 23 mmol/L (21-32) Anion Gap 10 (6-14) Blood Urea Nitrogen 37 mg/dL (7-20) Creatinine 1.7 mg/dL (0.6-1.0) Estimated GFR (Cockcroft-Gault) 34.9 BUN/Creatinine Ratio 22 (6-20) Glucose Level 155 mg/dL (70-99) Calcium Level 8.6 mg/dL (8.5-10.1) Total Bilirubin 0.8 mg/dL (0.2-1.0) Aspartate Amino Transf (AST/SGOT) 20 U/L (15-37) Alanine Aminotransferase (ALT/SGPT) 17 U/L (14-59) Alkaline Phosphatase 49 U/L (46-116) Total Protein 7.5 g/dL (6.4-8.2) Albumin 2.3 g/dL (3.4-5.0) Albumin/Globulin Ratio 0.4 (1.0-1.7) Results All relevant outside records, renal labs, imaging studies, telemetry/EKG's were reviewed. RUBEN RUCKER MD Dec 22, 2018 12:55
--- NOTE | 2018-12-22 13:37 | NUR ---
This RN spoke to Dr. Rojas this am in regards to clamping pt's NG tube. He recommended clamping for 4-6 hours, then opening. Dr. Rojas told this RN to see what Dr. Cedeno said. Dr. Cedeno deferred back to Dr. Rojas. Dr. Becker notified and is reaching out to Dr. Rojas for orders.
[2018-12-22] MEDS ORDERED: HEPARIN for IV BOLUS 10,000 UNIT/10 ML VIAL. IV PRN ×2 (14:30)
[2018-12-22] MEDS ORDERED: HEPARIN 25,000UTS/500ML PREMIX 500 ML IV PRN (14:30)
--- NOTE | 2018-12-22 14:31 | NUR ---
Dr. Becker called this RN with Dr. Rojas's anticoagulation orders. This RN was given orders to start pt on Heparin IV, pharmacy dosing with no bolus. This RN spoke to Virginie in pharmacy and she input orders.
[2018-12-22 15:00] VITALS: BP 153/72
--- NOTE | 2018-12-22 16:01 | NUR ---
Senior Painter was asked by patients nurse to start a new IV for patient. Upon observation to patient left forearm, arm was swollen, and noticed scab and redness asked patient if she perviously had an IV. Patient stated "I had a IV that went bad and the nurse on the second floor gave me a hot pack and it burnt me." Patients nurse notified.
[2018-12-22 19:00] VITALS: BP 107/67
--- NOTE | 2018-12-22 19:10 | PDOC ---
SURGICAL PROGRESS NOTE Subjective Clinically better with WBC 11,00 ad without fever. Abd soft and withut tenderness or pain to palpation. Has had multiple BM's and lot of flatus today. Coag normal. Was tentatively planning surgery but in view of the Gi function will hold off for now. Plan to clamp NG in am and if she tolerates this will start clear liquids. 12/23/2018. No peritoneal signs. Vital Signs Vital Signs Date Time Temp Pulse Resp B/P (MAP) Pulse Ox O2 Delivery O2 Flow Rate FiO2 12/22/18 15:00 98.1 78 18 153/72 (99) 100 Room Air 98.1 12/22/18 03:00 2.0 I&O Intake and Output 12/22/18 07:00 Intake Total 2000 ml Output Total 2600 ml Balance -600 ml Intake Oral 0 ml IV Total 2000 ml Output Urine Total 850 ml Drainage Total 1750 ml # Bowel Movements 1 Labs Laboratory Tests Test 12/20/18 20:34 12/21/18 00:16 12/21/18 04:35 12/21/18 06:13 Glucose (Fingerstick) 114 mg/dL (70-99) 121 mg/dL (70-99) 132 mg/dL (70-99) White Blood Count 9.8 x10^3/uL (4.0-11.0) Red Blood Count 3.98 x10^6/uL (3.50-5.40) Hemoglobin 12.3 g/dL (12.0-15.5) Hematocrit 37.9 % (36.0-47.0) Mean Corpuscular Volume 95 fL (79-100) Mean Corpuscular Hemoglobin 31 pg (25-35) Mean Corpuscular Hemoglobin Concent 33 g/dL (31-37) Red Cell Distribution Width 14.1 % (11.5-14.5) Platelet Count 130 x10^3/uL (140-400) Neutrophils (%) (Auto) 84 % (31-73) Lymphocytes (%) (Auto) 8 % (24-48) Monocytes (%) (Auto) 9 % (0-9) Eosinophils (%) (Auto) 0 % (0-3) Basophils (%) (Auto) 0 % (0-3) Neutrophils # (Auto) 8.2 x10^3/uL (1.8-7.7) Lymphocytes # (Auto) 0.7 x10^3/uL (1.0-4.8) Monocytes # (Auto) 0.8 x10^3/uL (0.0-1.1) Eosinophils # (Auto) 0.0 x10^3/uL (0.0-0.7) Basophils # (Auto) 0.0 x10^3/uL (0.0-0.2) Sodium Level 134 mmol/L (136-145) Potassium Level 4.7 mmol/L (3.5-5.1) Chloride Level 101 mmol/L (98-107) Carbon Dioxide Level 21 mmol/L (21-32) Anion Gap 12 (6-14) Blood Urea Nitrogen 45 mg/dL (7-20) Creatinine 1.8 mg/dL (0.6-1.0) Estimated GFR (Cockcroft-Gault) 32.7 Glucose Level 140 mg/dL (70-99) Calcium Level 8.1 mg/dL (8.5-10.1) Test 12/21/18 11:34 12/22/18 02:14 12/22/18 06:52 12/22/18 11:51 Glucose (Fingerstick) 95 mg/dL (70-99) 185 mg/dL (70-99) 143 mg/dL (70-99) White Blood Count 11.3 x10^3/uL (4.0-11.0) Red Blood Count 3.89 x10^6/uL (3.50-5.40) Hemoglobin 11.9 g/dL (12.0-15.5) Hematocrit 36.1 % (36.0-47.0) Mean Corpuscular Volume 93 fL (79-100) Mean Corpuscular Hemoglobin 31 pg (25-35) Mean Corpuscular Hemoglobin Concent 33 g/dL (31-37) Red Cell Distribution Width 13.6 % (11.5-14.5) Platelet Count 150 x10^3/uL (140-400) Neutrophils (%) (Auto) 89 % (31-73) Lymphocytes (%) (Auto) 5 % (24-48) Monocytes (%) (Auto) 6 % (0-9) Eosinophils (%) (Auto) 0 % (0-3) Basophils (%) (Auto) 0 % (0-3) Neutrophils # (Auto) 10.1 x10^3/uL (1.8-7.7) Lymphocytes # (Auto) 0.6 x10^3/uL (1.0-4.8) Monocytes # (Auto) 0.6 x10^3/uL (0.0-1.1) Eosinophils # (Auto) 0.0 x10^3/uL (0.0-0.7) Basophils # (Auto) 0.0 x10^3/uL (0.0-0.2) Prothrombin Time 15.2 SEC (11.7-14.0) Prothromb Time International Ratio 1.2 (0.8-1.1) Sodium Level 135 mmol/L (136-145) Potassium Level 4.1 mmol/L (3.5-5.1) Chloride Level 102 mmol/L (98-107) Carbon Dioxide Level 23 mmol/L (21-32) Anion Gap 10 (6-14) Blood Urea Nitrogen 37 mg/dL (7-20) Creatinine 1.7 mg/dL (0.6-1.0) Estimated GFR (Cockcroft-Gault) 34.9 BUN/Creatinine Ratio 22 (6-20) Glucose Level 155 mg/dL (70-99) Calcium Level 8.6 mg/dL (8.5-10.1) Total Bilirubin 0.8 mg/dL (0.2-1.0) Aspartate Amino Transf (AST/SGOT) 20 U/L (15-37) Alanine Aminotransferase (ALT/SGPT) 17 U/L (14-59) Alkaline Phosphatase 49 U/L (46-116) Total Protein 7.5 g/dL (6.4-8.2) Albumin 2.3 g/dL (3.4-5.0) Albumin/Globulin Ratio 0.4 (1.0-1.7) Laboratory Tests Test 12/22/18 02:14 12/22/18 06:52 12/22/18 11:51 Glucose (Fingerstick) 185 mg/dL (70-99) 143 mg/dL (70-99) White Blood Count 11.3 x10^3/uL (4.0-11.0) Red Blood Count 3.89 x10^6/uL (3.50-5.40) Hemoglobin 11.9 g/dL (12.0-15.5) Hematocrit 36.1 % (36.0-47.0) Mean Corpuscular Volume 93 fL (79-100) Mean Corpuscular Hemoglobin 31 pg (25-35) Mean Corpuscular Hemoglobin Concent 33 g/dL (31-37) Red Cell Distribution Width 13.6 % (11.5-14.5) Platelet Count 150 x10^3/uL (140-400) Neutrophils (%) (Auto) 89 % (31-73) Lymphocytes (%) (Auto) 5 % (24-48) Monocytes (%) (Auto) 6 % (0-9) Eosinophils (%) (Auto) 0 % (0-3) Basophils (%) (Auto) 0 % (0-3) Neutrophils # (Auto) 10.1 x10^3/uL (1.8-7.7) Lymphocytes # (Auto) 0.6 x10^3/uL (1.0-4.8) Monocytes # (Auto) 0.6 x10^3/uL (0.0-1.1) Eosinophils # (Auto) 0.0 x10^3/uL (0.0-0.7) Basophils # (Auto) 0.0 x10^3/uL (0.0-0.2) Prothrombin Time 15.2 SEC (11.7-14.0) Prothromb Time International Ratio 1.2 (0.8-1.1) Sodium Level 135 mmol/L (136-145) Potassium Level 4.1 mmol/L (3.5-5.1) Chloride Level 102 mmol/L (98-107) Carbon Dioxide Level 23 mmol/L (21-32) Anion Gap 10 (6-14) Blood Urea Nitrogen 37 mg/dL (7-20) Creatinine 1.7 mg/dL (0.6-1.0) Estimated GFR (Cockcroft-Gault) 34.9 BUN/Creatinine Ratio 22 (6-20) Glucose Level 155 mg/dL (70-99) Calcium Level 8.6 mg/dL (8.5-10.1) Total Bilirubin 0.8 mg/dL (0.2-1.0) Aspartate Amino Transf (AST/SGOT) 20 U/L (15-37) Alanine Aminotransferase (ALT/SGPT) 17 U/L (14-59) Alkaline Phosphatase 49 U/L (46-116) Total Protein 7.5 g/dL (6.4-8.2) Albumin 2.3 g/dL (3.4-5.0) Albumin/Globulin Ratio 0.4 (1.0-1.7) Problem List Problems Medical Problems: (1) Epigastric pain Status: Acute (2) Epigastric pain Status: Acute (3) Nausea Status: Acute (4) Nausea Status: Acute (5) Small bowel obstruction Status: Acute JASMYN MYERS MD Dec 22, 2018 19:10
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
[2018-12-22] MEDS ORDERED: HEPARIN for SUB-Q USE 5,000 UNIT/ML VIAL. SQ SCH (22:00)
[2018-12-22 23:00] VITALS: BP 151/63
[2018-12-23] VITALS (13 sets, daily range): BP systolic 133–201; BP diastolic 65–89
[2018-12-23] MEDS: PIPERACILLIN/TAZOBACTAM 3.375 GM in IV NORMAL SALINE 50ML 50 ML IV SCH ×4 (00:17→18:25)
[2018-12-23] MEDS: fentaNYL PF VIAL 100 MCG/2 ML VIAL IVP PRN ×2 (02:43→22:01)
[2018-12-23] MEDS: IV DEXTROSE 5 %-0.45 % NACL 1,000 ML IV SCH (03:30)
[2018-12-23] MEDS ORDERED: fentaNYL PF VIAL 100 MCG/2 ML VIAL IVP ONE (03:30)
--- NOTE | 2018-12-23 03:37 | NUR ---
Patient calls this designer writer at appro [phone], requesting to be assisted to sit up at side of the bed, this designer writer assisted; patient reports 10/10 on pain scale as left leg 'from my hip down..feels numb..hurts behind my knee..' Fentanyl 50 mcg ivp given at 0243, vss, patient bottom repositioned on bed to attempt comfort, behind the knee left warm, hardened, call to ans service at approximately [phone], ans service calls back, gives Dr Cedeno's number, Dr called at approx [phone], orders received. monitoring. Addendum: 12/23/18 at 0823 by KRISTIN WILKINS RN clarification on head to toe assessment for 1999 (12/22/18), as patient's left lower extremity slightly cooler than the right lower extremity, pulses intact,
--- NOTE | 2018-12-23 05:10 | NUR ---
This designer/writer rec's call regarding u/s, reporting to have occlusions to left leg in many places, and is dictating the results to be sent to the unit. monitoring.
--- NOTE | 2018-12-23 05:13 | RAD ---
Indication: Cold leg. No filling to the left leg. TECHNIQUE: Grayscale, color Doppler and spectral waveform images of the left lower extremity arteries COMPARISON: None FINDINGS: The dampened waveform in the RETORT KILN BURNER with velocity of 13 cm/s. Biphasic waveforms in the profunda femoris artery with velocity of 13 cm/s. Monophasic waveform in the proximal SFA with velocity of 22 cm/s. Trace flow is seen in the mid and distal SFA without measurable velocity. Trace flow in the popliteal artery without measurable velocity. Monophasic waveform in the anterior tibial artery with velocity of 9 cm/s. No blood flow seen through the posterior tibial artery. No blood flow seen through the peroneal artery. No blood flow seen through the dorsalis pedis artery. IMPRESSION: Severely diminished to absent blood flow in multiple segments of the major lower extremity arteries suggests diffuse severe stenosis or occlusion. See above for details. Findings discussed with AMOS Gunderson on 12/23/2018 at 5:09AM. Electronically signed by: James Morrison DO (12/23/2018 5:10 AM) [id number]
--- NOTE | 2018-12-23 05:42 | RAD ---
Ultrasound venous Doppler INDICATION:Severe pain. TECHNIQUE: Grayscale, color Doppler and spectral waveform ultrasound images of the left lower extremities deep veins obtained. COMPARISON: None FINDINGS: Hypoechoic filling defect is seen in the SFA and popliteal vein which are partially compressible and shows evidence of blood flow. Popliteal fossa cyst measuring 5.2 x 1.6 x 3.5 cm most likely a Cordova's cyst. The CFV is compressible and demonstrates evidence of blood flow. The calf veins demonstrate evidence of blood flow. IMPRESSION: Nonocclusive thrombus in the SFV extending to the popliteal vein with preserved blood flow. Electronically signed by: James Morrison DO (12/23/2018 5:39 AM) [facility]
[2018-12-23] MEDS ORDERED: HEPARIN for IV BOLUS 10,000 UNIT/10 ML VIAL. IV STA (05:58)
[2018-12-23] MEDS ORDERED: HEPARIN 25,000UTS/500ML PREMIX 500 ML IV PRN (06:00)
[2018-12-23] MEDS ORDERED: HEPARIN for IV BOLUS 10,000 UNIT/10 ML VIAL. IV PRN (06:15)
[2018-12-23] MEDS: HEPARIN 25,000UTS/500ML PREMIX 500 ML IV PRN ×2 (06:20→08:33)
[2018-12-23] MEDS ORDERED: fentaNYL PF VIAL 100 MCG/2 ML VIAL ONE ×2 (06:28→08:24)
[2018-12-23] MEDS ORDERED: ROCURONIUM 50 MG/5 ML VIAL. ONE (06:28)
[2018-12-23] MEDS ORDERED: PROPOFOL 20 ML IV ONE (06:28)
[2018-12-23] MEDS ORDERED: LIDOCAINE 2% PF 5 ML VIAL. ONE (06:28)
[2018-12-23] MEDS ORDERED: HEPARIN for IV BOLUS 10,000 UNIT/10 ML VIAL. IV ONE (06:30)
--- NOTE | 2018-12-23 07:10 | NUR ---
Staff transporting patient to pre-op, staff calls to unit, concerned that or staff not in room(?), but staff did enter the room.
[2018-12-23] MEDS ORDERED: IV RINGERS,LACTATED 1000ML 1,000 ML IV SCH (07:21)
[2018-12-23] MEDS ORDERED: PROCHLORPERAZINE 10 MG/2 ML VIAL. IV PRN (07:30)
[2018-12-23] MEDS ORDERED: LIDOCAINE 1% PF 2 ML VIAL. ID PRN (07:30)
[2018-12-23] MEDS: PANTOPRAZOLE IV PUSH 40 MG VIAL. IVP SCH (07:30)
[2018-12-23] MEDS ORDERED: MORPHINE SULFATE 2 MG/ML VIAL. IV PRN (07:30)
[2018-12-23] MEDS ORDERED: fentaNYL PF VIAL 100 MCG/2 ML VIAL IV PRN ×2 (07:30)
[2018-12-23] MEDS ORDERED: ONDANSETRON PF 4 MG/2 ML VIAL. IV PRN (07:30)
[2018-12-23] MEDS ORDERED: HYDROmorphone 2 MG/ML VIAL IV PRN (07:30)
[2018-12-23] MEDS ORDERED: SODIUM BICARBONATE ID ONE (07:30)
[2018-12-23] MEDS ORDERED: TOTAL VOLUME ID ONE (07:30)
[2018-12-23] MEDS ORDERED: LIDOCAINE 1% ID ONE (07:30)
[2018-12-23] MEDS ORDERED: HEPARIN SODIUM 5,000 UNIT in IV NORMAL SALINE 500ML BAG 500 ML IRR ONE (07:30)
--- NOTE | 2018-12-23 07:40 | NUR ---
Call placed to Dr Adam's ans service, regarding Dr Cedeno wants cardiology to know about thrombosis, and surgery, awaiting return call.
[2018-12-23] MEDS ORDERED: SUCCINYLCHOLINE 200 MG/10 ML VIAL. ONE (07:45)
--- NOTE | 2018-12-23 07:48 | PDOC ---
Provider Note Provider Note Vascular consult dictated RETA HOYT MD Dec 23, 2018 07:48
[2018-12-23] MEDS ORDERED: LABETALOL 20 MG/4 ML DISP.SYRIN. IVP ONE (08:30)
[2018-12-23] MEDS ORDERED: PHENYLEPHRINE 10 MG/ML VIAL. ONE (08:48)
[2018-12-23] MEDS: DICLOFENAC SODIUM 1% TOPICAL GEL 100GM TUBE. TP SCH ×4 (09:00→22:00)
[2018-12-23] MEDS ORDERED: IOHEXOL 300 MG/ML 50 ML VIAL. ONE ×2 (09:05→09:28)
[2018-12-23] MEDS ORDERED: DEXAMETHASONE SOD PHOS 4 MG/ML VIAL ONE (09:06)
[2018-12-23] MEDS ORDERED: FAMOTIDINE 20 MG/2 ML VIAL ONE (09:06)
[2018-12-23] MEDS ORDERED: HYDROCORTISONE SOD SUCC/PF 100 MG/2 ML VIAL. ONE (09:06)
[2018-12-23] MEDS ORDERED: ONDANSETRON PF 4 MG/2 ML VIAL. ONE (09:06)
[2018-12-23] MEDS ORDERED: GLYCOPYRROLATE 1 MG/5 ML VIAL. ONE (09:10)
[2018-12-23] MEDS ORDERED: NEOSTIGMINE METHYLSULFATE 5 MG/5 ML SYRINGE. ONE (09:10)
[2018-12-23] MEDS ORDERED: HEPARIN for IV BOLUS 10,000 UNIT/10 ML VIAL. ONE (09:23)
[2018-12-23] MEDS ORDERED: SEVOFLURANE > 120 MINUTES. IH ONE (09:44)
--- NOTE | 2018-12-23 10:42 | PDOC ---
VASCULAR BRIEF OPERATIVE NOTE Date: Dec 23, 2018 Pre-Op Diagnosis ischemic left leg Post-Op Diagnosis same Procedure Performed left popliteal thromboembolectomy left Iliac thromboembolectomy Intraoperative arteriogram with left Iliac angioplasty and stent placement([id number] genisis) Surgeon Lety Anesthesia Type: General RETA HOYT MD Dec 23, 2018 10:42
--- NOTE | 2018-12-23 10:56 | CONS ---
DATE OF CONSULTATION: 12/23/2018 PRE-SURGICAL CONSULTATION PREOPERATIVE DIAGNOSIS: Ischemic left leg. HISTORY OF PRESENT ILLNESS: This is an 83-year-old female admitted on 12/16 with partial small bowel obstruction. She is on chronic Coumadin anticoagulation for history of atrial fibrillation and deep vein thrombosis. Her anticoagulation was discontinued in anticipation of a laparotomy. Laparotomy was not pursued because her bowel obstruction resolved. She has been passing flatus and her abdomen is no longer tender. This morning, about 2:00, she started to complain of left foot pain and numbness. She also said she was weak and could not move her foot. She was on heparin 5000 units 3 times daily up to that point in time. An ultrasound examination was performed, which showed significantly diminished flow in the left lower extremity. When the results of that ultrasound were made available around 6:00 this morning, Vascular Surgery was consulted. The patient was started on heparin infusion with a 5000-unit bolus and 1000 units an hour. Recommendation was for emergency surgical exploration to restore blood flow into the left leg. ALLERGIES: THE PATIENT HAS ALLERGIES TO IODINE. MEDICATIONS: Amlodipine 10 mg daily, Detrol LA 4 mg daily, atorvastatin 20 mg daily, losartan 100 mg daily, metoprolol 25 mg daily, Uloric 40 mg daily and 3.5 mg of Coumadin daily. PAST MEDICAL HISTORY: As noted her past history is significant for atrial fibrillation, hypertension, hyperlipidemia, gout, osteoarthritis and underlying morbid obesity. She has had a previous left nephrectomy for kidney stone disease. She has had abdominal hysterectomy and bilateral salpingo-oophorectomy and tonsillectomy. Her baseline serum creatinine is 1.4. Her last echocardiogram showed some moderate aortic regurgitation, mitral regurgitation, tricuspid regurgitation and pulmonary hypertension. Her ejection fraction was 70%. The patient has a remote history of smoking, which she discontinued many years ago. She had no antecedent claudication. No underlying diabetes. PHYSICAL EXAMINATION: Lying in bed, in no acute distress. She has a nasogastric tube in. Her abdomen is rotund, soft, nontender. She has excellent radial pulses bilaterally. She is neurologically intact. She has excellent femoral pulse on the right with a palpable popliteal and posterior tibial pulse on the left side. There is no femoral pulse, no popliteal pulse and no pedal pulses. She is able to dorsiflex and plantarflex her left foot. She is able to flex and extend her left leg. She says it is painful, but motion is intact. She has decreased sensation in the left lower extremity. Both the anterior and posterior compartments of the left leg are soft. IMPRESSION: Acute onset left lower extremity ischemia. With a history of atrial fibrillation and being off anticoagulation, this is most likely thromboembolic with common femoral or common iliac artery occlusion. RECOMMENDATIONS: Recommendation is for emergency exploration thrombectomy and possible fasciotomy. Given her intact motor function in the left lower extremity, I think fasciotomy is unlikely. She may need intraoperative arteriography and additional percutaneous intervention if this is not an embolic occlusion of her femoral vessels or common iliac artery. The planned operative procedure, risks, complications, and alternative therapies have all been reviewed with the patient. Family members were present. The patient agrees to proceed as recommended. RETA HOYT MD DR: JOEY/angus JOB#: [id number] / [id number]
[2018-12-23] MEDS ORDERED: HYDROCORTISONE SOD SUCC/PF 100 MG/2 ML VIAL. IV ONE (11:00)
[2018-12-23 11:07] LABS: BASO % 0 % (0-3); EOS % 0 % (0-3); HEMATOCRIT 37.6 % (36.0-47.0); HEMOGLOBIN 12.2 g/dL (12.0-15.5); LYMPH # 1.2 x10^3/uL (1.0-4.8); LYMPH % 8 % (24-48); MEAN CORPUSCULAR HEMOGLOBIN 31 pg (25-35); MEAN CORPUSCULAR HGB CONC 32 g/dL (31-37); MEAN CORPUSCULAR VOLUME 95 fL (79-100); MONO % 6 % (0-9); NEUT % 86 % (31-73); PLATELET COUNT 176 x10^3/uL (140-400); RED BLOOD COUNT 3.98 x10^6/uL (3.50-5.40); RED CELL DISTRIBUTION WIDTH 13.8 % (11.5-14.5); WHITE BLOOD COUNT 16.3 x10^3/uL (4.0-11.0)
--- NOTE | 2018-12-23 11:16 | OP ---
DATE OF SURGERY: 12/23/2018 PREOPERATIVE DIAGNOSIS: Acutely ischemic left leg. POSTOPERATIVE DIAGNOSIS: Acutely ischemic left leg. PROCEDURES PERFORMED: 1. Left femoral thromboembolectomy. 2. Left iliac thromboembolectomy. 3. Intraoperative retrograde left iliac arteriogram. 4. Left common iliac artery angioplasty and stent utilizing a 10 x 37 mm Kristie stent expanded to 8 atmospheres of pressure. 5. Completion arteriogram. 6. Left femoral artery bovine pericardial patch angioplasty. SURGEON: Giovanny Davidson MD ANESTHESIA: General. INDICATIONS: This is an 83-year-old female admitted to the hospital for evaluation and treatment of a partial small-bowel obstruction. She has a history of atrial fibrillation and has been on chronic Coumadin anticoagulation. This was discontinued in anticipation of exploratory laparotomy. This morning about 2:00 she started to complain of left leg pain and weakness. A Doppler ultrasound examination showed very poor flow in the left leg. Vascular Surgery was consulted this morning around 6:00 and recommendation was for surgical exploration. The patient did have a CT scan at the time of admission and those films were reviewed. That showed some significant calcification in the infrarenal abdominal aorta and in the iliac arteries bilaterally. The patient had absent femoral, popliteal, and pedal pulses on the left, but she had intact motor function and decreased sensation. She had palpable femoral, popliteal, and dorsalis pedis pulse on the right. FINDINGS: The patient had some thrombus in her popliteal artery on the left, which was cleared with a #4 Naveen embolectomy catheter. She had some thrombus in the iliac system on the right, which was cleared with a #5 Naveen embolectomy catheter. There was continued difficulty with withdrawing the Naveen catheter from the abdominal aorta at approximately the level of the aortic bifurcation. Intraoperative retrograde iliac artery arteriogram was performed, which showed a high grade irregular stenosis in the iliac artery on the left. The area of stenosis was able to be crossed with a Glidewire and a wire exchange with an Amplatz wire was completed. Intraoperative balloon angioplasty using a 10 x 37 mm Kristie stent was performed at the origin of the common iliac artery with excellent result and zoroastrian of a palpable pulse in the external iliac artery. DESCRIPTION OF PROCEDURE: The patient was given a general anesthetic, prepped and draped in a sterile fashion. A longitudinal incision was made over the common femoral artery on the left. Soft tissue was divided with electrocautery. The common femoral, profunda femoris and superficial femoral arteries were all isolated and surrounded with vessel loops. The common femoral artery did not have a pulse and was rather under perfused. The patient had been on a heparin infusion. She received an additional 3000 units of heparin anticoagulation and a longitudinal arteriotomy was made at the common femoral bifurcation and extending down on to the superficial femoral artery. A #4 Naveen embolectomy catheter was passed distally into the popliteal artery. It passed to 60 cm. It was inflated and withdrawn. The initial pass retrieved some clot material. Additional passes did not retrieve any additional clot. The outflow vessel was then flushed with heparinized saline solution and occluded. A #5 Naveen embolectomy catheter was passed proximally. The catheter was inflated in the aorta and withdrawn. It was being held up at the aortic bifurcation. Some clot was retrieved on the first pass. No additional clot was retrieved on subsequent passes. An 8.5, 23 cm sheath was then brought up on to the field. A Doximity guidewire was passed through the sheath and then the sheath was introduced into the external iliac artery. A retrograde arteriogram was obtained using 10 mL of contrast, which showed the irregular calcific plaque and obstruction at the common iliac artery on the left. A Glidewire was passed through this area and a vertebral catheter was then passed over the top of the Glidewire into the abdominal aorta. The Glidewire was removed and replaced with an Amplatz Super Stiff wire. Once this had been completed, magnification arteriography of the aortic bifurcation was obtained. A 10 x 37 Kristie balloon expandable stent was then passed up into the sheath, which was across the area of stenosis. The sheath was then withdrawn and the balloon was expanded to 10 atmospheres of pressure. There was complete effacement of the common iliac artery. Followup arteriogram showed wide patency of the common iliac artery and external iliac artery. The wire and sheath were removed. The arteriotomy was closed with a bovine pericardial patch angioplasty sewn in place with a running 6-0 Prolene suture. Prior to completion of arterial closure, the vessel was flushed and backbled. Suture line was completed and blood flow was instituted to the right lower extremity. Suture line was hemostatic. The wound was closed with 2-0 Vicryl in deep and superficial subcutaneous tissue and a running 3-0 Vicryl approximating the skin edges. Steri-Strips and sterile dressings were applied. A Prevena wound VAC was placed over the top of the incision. The patient was moved from the operating room to recovery in satisfactory stable condition. GIOVANNY DAVIDSON MD DR: JOEY/angus JOB#: [id number] / [id number]
[2018-12-23 11:18] LABS: PROTHROMBIN TIME PATIENT 16.1 SEC (11.7-14.0)
[2018-12-23 11:25] LABS: CALCIUM 8.3 mg/dL (8.5-10.1); CREATININE 1.8 mg/dL (0.6-1.0); GFR 32.7; POTASSIUM 3.8 mmol/L (3.5-5.1)
[2018-12-23] MEDS ORDERED: LABETALOL 20 MG/4 ML DISP.SYRIN. IVP PRN (11:30)
[2018-12-23 11:47] LABS: PARTIAL THROMBOPLASTIN TIME > 150 SEC (24-38)
--- NOTE | 2018-12-23 11:54 | PDOC ---
PROGRESS NOTES Subjective Subjective seen in surgical recovery. sleeping.had a left popliteal thromboembolectomy and a left iliac artery thromboembolectomy and left iliac artery angioplasty with stent this morning and started on iv heparin. nurse called me last night that patient was complaining of severe pain in left leg and arterial and venous doppler was done showing arterial occlusion to arteries in LLE and non occlusive SFV thrombosis LLE. dr. Davidson consulted and did the above surgery. had atrial fibrillation with RVR and was give iv labetolol her nurse and doing well now with a controlled VR. lab reviewed. Objective Objective Vital Signs Date Time Temp Pulse Resp B/P (MAP) Pulse Ox O2 Delivery O2 Flow Rate FiO2 12/23/18 11:35 103 20 97/55 97 Simple Mask 10 12/23/18 10:26 97.5 97.5 Intake and Output 12/23/18 07:00 Intake Total 50 ml Output Total 1450 ml Balance -1400 ml Intake Oral 0 ml IV Total 50 ml Output Urine Total 550 ml Gastric Drainage Total 900 ml Physical Exam Abdomen: Normal bowel sounds, Soft, Other (not distended. soft) Heart: Normal S1, Normal S2 Extremities: No edema, Other (dorsalis pulse left foot intact. left foot and toes are warm with good color. provena vac left groin/thigh. DP right foot intact. ) General: Other (sedated) HEENT: Atraumatic Lungs: Clear to auscultation Neuro: Other (sedated) Psych/Mental Status: Other (sedated) Skin: No rashes Assessment Assessment Problems partial small-bowel obstruction improved 2. Acute kidney injury better on top of chronic kidney disease stage 3. serum creatinine closer to baseline . baseline is 1.4 3. Hypertension. 4. Hyperlipidemia. 5. Chronic atrial fibrillation with a controlled VR. had episode of increased VR post op now controlled osteoarthritis left knee treated with steroid injection 6. Chronic gout. 7. History of a left nephrectomy. left popliteal and left iliac thromboembolectomy with left iliac artery angioplasty and stent mild leukocytosis Medical Problems: (1) Epigastric pain Status: Acute (2) Epigastric pain Status: Acute (3) Nausea Status: Acute (4) Nausea Status: Acute (5) Small bowel obstruction Status: Acute Plan Plan of Care continue iv heparin continue iv zosyn per ID metoprolol IV prn for afib RVR continue iv fluids lab tomorrow Comment Review of Relevant I have reviewed the following items rubia (where applicable) has been applied. Labs Laboratory Tests Test 12/22/18 02:14 12/22/18 06:52 12/22/18 11:51 12/22/18 23:42 Glucose (Fingerstick) 185 mg/dL (70-99) 143 mg/dL (70-99) 130 mg/dL (70-99) White Blood Count 11.3 x10^3/uL (4.0-11.0) Red Blood Count 3.89 x10^6/uL (3.50-5.40) Hemoglobin 11.9 g/dL (12.0-15.5) Hematocrit 36.1 % (36.0-47.0) Mean Corpuscular Volume 93 fL (79-100) Mean Corpuscular Hemoglobin 31 pg (25-35) Mean Corpuscular Hemoglobin Concent 33 g/dL (31-37) Red Cell Distribution Width 13.6 % (11.5-14.5) Platelet Count 150 x10^3/uL (140-400) Neutrophils (%) (Auto) 89 % (31-73) Lymphocytes (%) (Auto) 5 % (24-48) Monocytes (%) (Auto) 6 % (0-9) Eosinophils (%) (Auto) 0 % (0-3) Basophils (%) (Auto) 0 % (0-3) Neutrophils # (Auto) 10.1 x10^3/uL (1.8-7.7) Lymphocytes # (Auto) 0.6 x10^3/uL (1.0-4.8) Monocytes # (Auto) 0.6 x10^3/uL (0.0-1.1) Eosinophils # (Auto) 0.0 x10^3/uL (0.0-0.7) Basophils # (Auto) 0.0 x10^3/uL (0.0-0.2) Prothrombin Time 15.2 SEC (11.7-14.0) Prothromb Time International Ratio 1.2 (0.8-1.1) Sodium Level 135 mmol/L (136-145) Potassium Level 4.1 mmol/L (3.5-5.1) Chloride Level 102 mmol/L (98-107) Carbon Dioxide Level 23 mmol/L (21-32) Anion Gap 10 (6-14) Blood Urea Nitrogen 37 mg/dL (7-20) Creatinine 1.7 mg/dL (0.6-1.0) Estimated GFR (Cockcroft-Gault) 34.9 BUN/Creatinine Ratio 22 (6-20) Glucose Level 155 mg/dL (70-99) Calcium Level 8.6 mg/dL (8.5-10.1) Total Bilirubin 0.8 mg/dL (0.2-1.0) Aspartate Amino Transf (AST/SGOT) 20 U/L (15-37) Alanine Aminotransferase (ALT/SGPT) 17 U/L (14-59) Alkaline Phosphatase 49 U/L (46-116) Total Protein 7.5 g/dL (6.4-8.2) Albumin 2.3 g/dL (3.4-5.0) Albumin/Globulin Ratio 0.4 (1.0-1.7) Test 12/23/18 06:46 12/23/18 10:59 Glucose (Fingerstick) 111 mg/dL (70-99) White Blood Count 16.3 x10^3/uL (4.0-11.0) Red Blood Count 3.98 x10^6/uL (3.50-5.40) Hemoglobin 12.2 g/dL (12.0-15.5) Hematocrit 37.6 % (36.0-47.0) Mean Corpuscular Volume 95 fL (79-100) Mean Corpuscular Hemoglobin 31 pg (25-35) Mean Corpuscular Hemoglobin Concent 32 g/dL (31-37) Red Cell Distribution Width 13.8 % (11.5-14.5) Platelet Count 176 x10^3/uL (140-400) Neutrophils (%) (Auto) 86 % (31-73) Lymphocytes (%) (Auto) 8 % (24-48) Monocytes (%) (Auto) 6 % (0-9) Eosinophils (%) (Auto) 0 % (0-3) Basophils (%) (Auto) 0 % (0-3) Neutrophils # (Auto) 14.0 x10^3/uL (1.8-7.7) Lymphocytes # (Auto) 1.2 x10^3/uL (1.0-4.8) Monocytes # (Auto) 1.0 x10^3/uL (0.0-1.1) Eosinophils # (Auto) 0.0 x10^3/uL (0.0-0.7) Basophils # (Auto) 0.0 x10^3/uL (0.0-0.2) Sodium Level 138 mmol/L (136-145) Potassium Level 3.8 mmol/L (3.5-5.1) Chloride Level 104 mmol/L (98-107) Carbon Dioxide Level 24 mmol/L (21-32) Anion Gap 10 (6-14) Blood Urea Nitrogen 36 mg/dL (7-20) Creatinine 1.8 mg/dL (0.6-1.0) Estimated GFR (Cockcroft-Gault) 32.7 Glucose Level 149 mg/dL (70-99) Calcium Level 8.3 mg/dL (8.5-10.1) Laboratory Tests Test 12/22/18 11:51 12/22/18 23:42 12/23/18 06:46 12/23/18 10:59 Glucose (Fingerstick) 143 mg/dL (70-99) 130 mg/dL (70-99) 111 mg/dL (70-99) White Blood Count 16.3 x10^3/uL (4.0-11.0) Red Blood Count 3.98 x10^6/uL (3.50-5.40) Hemoglobin 12.2 g/dL (12.0-15.5) Hematocrit 37.6 % (36.0-47.0) Mean Corpuscular Volume 95 fL (79-100) Mean Corpuscular Hemoglobin 31 pg (25-35) Mean Corpuscular Hemoglobin Concent 32 g/dL (31-37) Red Cell Distribution Width 13.8 % (11.5-14.5) Platelet Count 176 x10^3/uL (140-400) Neutrophils (%) (Auto) 86 % (31-73) Lymphocytes (%) (Auto) 8 % (24-48) Monocytes (%) (Auto) 6 % (0-9) Eosinophils (%) (Auto) 0 % (0-3) Basophils (%) (Auto) 0 % (0-3) Neutrophils # (Auto) 14.0 x10^3/uL (1.8-7.7) Lymphocytes # (Auto) 1.2 x10^3/uL (1.0-4.8) Monocytes # (Auto) 1.0 x10^3/uL (0.0-1.1) Eosinophils # (Auto) 0.0 x10^3/uL (0.0-0.7) Basophils # (Auto) 0.0 x10^3/uL (0.0-0.2) Sodium Level 138 mmol/L (136-145) Potassium Level 3.8 mmol/L (3.5-5.1) Chloride Level 104 mmol/L (98-107) Carbon Dioxide Level 24 mmol/L (21-32) Anion Gap 10 (6-14) Blood Urea Nitrogen 36 mg/dL (7-20) Creatinine 1.8 mg/dL (0.6-1.0) Estimated GFR (Cockcroft-Gault) 32.7 Glucose Level 149 mg/dL (70-99) Calcium Level 8.3 mg/dL (8.5-10.1) Microbiology 12/18/18 Urine Culture - Final, Complete 12/18/18 Urine Culture Result 1 (ALEJANDRINA) - Final, Complete Medications Current Medications Ondansetron HCl (Zofran) 4 mg 1X ONCE IM ; Start 12/16/18 at 09:30; Stop 12/16/18 at 09:31; Status DC Fentanyl Citrate (Fentanyl 2ml Vial) 75 mcg 1X ONCE IVP Last administered on 12/16/18at 09:46; Start 12/16/18 at 09:45; Stop 12/16/18 at 09:46; Status DC Ondansetron HCl (Zofran) 4 mg 1X ONCE IVP Last administered on 12/16/18at 0 9:51; Start 12/16/18 at 10:00; Stop 12/16/18 at 10:01; Status DC Sodium Chloride 1,000 ml @ 1,000 mls/hr 1X ONCE IV Last administered on 12/16/18at 10:40; Start 12/16/18 at 10:15; Stop 12/16/18 at 11:14; Status DC Clonidine HCl (Catapres) 0.1 mg 1X ONCE PO Last administered on 12/16/18at 15:12; Start 12/16/18 at 14:15; Stop 12/16/18 at 14:16; Status DC Fentanyl Citrate (Fentanyl 2ml Vial) 75 mcg 1X ONCE IVP ; Start 12/16/18 at 15:15; Stop 12/16/18 at 15:16; Status DC Ondansetron HCl (Zofran) 4 mg PRN Q8HRS PRN IV NAUSEA/VOMITING; Start 12/16/18 at 15:15; Stop 12/16/18 at 17:10; Status DC Fentanyl Citrate (Fentanyl 2ml Vial) 50 mcg PRN Q1HR PRN IV PAIN Last administered on 12/17/18at 07:28; Start 12/16/18 at 15:15; Stop 12/17/18 at 15 :14; Status DC Sodium Chloride 1,000 ml @ 125 mls/hr Q8H IV ; Start 12/16/18 at 15:10; Stop 12/16/18 at 17:26; Status DC Acetaminophen (Tylenol) 650 mg PRN Q4HRS PRN PO FEVER; Start 12/16/18 at 15:15; Stop 12/17/18 at 15:14; Status DC Potassium Chloride/Dextrose/ Sod Cl 1,000 ml @ 100 mls/hr Q10H IV Last administered on 12/18/18at 01:27; Start 12/16/18 at 17:00; Stop 12/18/18 at 10:34; Status DC Ondansetron HCl (Zofran) 4 mg PRN Q6HRS PRN IVP NAUSEA/VOMITING Last administered on 12/18/18at 21:17; Start 12/16/18 at 17:00 Hydralazine HCl (Apresoline Inj) 10 mg PRN Q6HRS PRN IVP ELEVATED BP, SEE COMMENTS Last administered on 12/22/18at 03:07; Start 12/17/18 at 01:00 Enoxaparin Sodium (Lovenox 100mg Syringe) 100 mg DAILY SQ Last administered on 12/17/18at 12:49; Start 12/17/18 at 10:30; Stop 12/19/18 at 09:14; Status DC Info (Anti-Coagulation Monitoring By Pharmacy) 1 each PRN DAILY PRN MC SEE COMMENTS Last administered on 12/18/18at 10:42; Start 12/17/18 at 10:15 Pantoprazole Sodium (PROTONIX VIAL for IV PUSH) 40 mg DAILYAC IVP Last administered on 12/22/18at 08:12; Start 12/17/18 at 10:30 Acetaminophen (Tylenol Supp) 650 mg PRN Q6HRS PRN IA HEADACHE / TEMP; Start 12/17/18 at 10:00 Fentanyl Citrate (Fentanyl 2ml Vial) 50 mcg PRN Q4HRS PRN IVP PAIN Last administered on 12/23/18at 02:43; Start 12/17/18 at 10:00 Insulin Human Lispro (HumaLOG) 0-6 UNITS BG 300-399... Q6HRS SQ ; Start 12/17/18 at 12:00; Stop 12/17/18 at 10:24; Status DC Ceftriaxone Sodium (Rocephin) 1 gm Q24H IVP Last administered on 12/21/18at 12:42; Start 12/18/18 at 11:00; Stop 12/22/18 at 10:07; Status DC Dextrose/Sodium Chloride 1,000 ml @ 150 mls/hr Q6H40M IV Last administered on 12/20/18at 03:00; Start 12/18/18 at 10:30; Stop 12/20/18 at 09:52; Status DC Bupivacaine HCl/ Epinephrine Bitart (Sensorcain-Epi 0.5%-1:748034 Mpf) 30 ml 1X ONCE INJ ; Start 12/18/18 at 15:00; Stop 12/18/18 at 15:01; Status Cancel Bupivacaine HCl/ Epinephrine Bitart (Sensorcain-Epi 0.5%-1:470927 Mpf) 30 ml 1X ONCE INJ Last administered on 12/19/18at 06:00; Start 12/19/18 at 06:00; Stop 12/19/18 at 06:01; Status DC Ondansetron HCl (Zofran) 4 mg PRN Q6HRS PRN IV NAUSEA/VOMITING; Start 12/19/18 at 07:00; Stop 12/20/18 at 06:59; Status DC Fentanyl Citrate (Fentanyl 2ml Vial) 25 mcg PRN Q5MIN PRN IV MILD PAIN 1-3; Start 12/19/18 at 07:00; Stop 12/20/18 at 06:59; Status DC Fentanyl Citrate (Fentanyl 2ml Vial) 50 mcg PRN Q5MIN PRN IV MODERATE TO SEVERE PAIN; Start 12/19/18 at 07:00; Stop 12/20/18 at 06:59; Status DC Morphine Sulfate (Morphine Sulfate) 1 mg PRN Q10MIN PRN IV SEVERE PAIN 7-10; Start 12/19/18 at 07:00; Stop 12/20/18 at 06:59; Status DC Ringer's Solution 1,000 ml @ 30 mls/hr Q24H IV ; Start 12/19/18 at 07:00; Stop 12/19/18 at 18:59; Status DC Lidocaine HCl (Xylocaine-Mpf 1% 2ml Vial) 2 ml PRN 1X PRN ID PRIOR TO IV START; Start 12/19/18 at 07:00; Stop 12/20/18 at 06:59; Status DC Hydromorphone HCl (Dilaudid) 0.5 mg PRN Q10MIN PRN IV SEV PAIN, Second choice; Start 12/19/18 at 07:00; Stop 12/20/18 at 06:59; Status DC Prochlorperazine Edisylate (Compazine) 5 mg PACU PRN PRN IV NAUSEA, MRX1; Start 12/19/18 at 07:00; Stop 12/20/18 at 06:59; Status DC Phytonadione 10 mg/Dextrose 51 ml @ 102 mls/hr 1X ONCE IV Last administered on 12/19/18at 10:37; Start 12/19/18 at 09:15; Stop 12/19/18 at 09:44; Status DC Potassium Chloride/Dextrose/ Sod Cl 1,000 ml @ 150 mls/hr Q6H40M IV Last administered on 12/21/18at 03:26; Start 12/20/18 at 11:00; Stop 12/21/18 at 11:06; Status DC Lidocaine HCl (Lidocaine Pf 2% Vial) 5 ml STK-MED ONCE .ROUTE ; Start 12/20/18 at 11:14; Stop 12/20/18 at 11:14; Status DC Neostigmine Methylsulfate (Bloxiverz) 10 mg STK-MED ONCE .ROUTE ; Start 12/20/18 at 11:16; Stop 12/20/18 at 11:17; Status DC Rocuronium [place] (Zemuron) 50 mg STK-MED ONCE .ROUTE ; Start 12/20/18 at 11:17; Stop 12/20/18 at 11:17; Status DC Fentanyl Citrate (Fentanyl 2ml Vial) 100 mcg STK-MED ONCE .ROUTE ; Start 12/20/18 at 11:17; Stop 12/20/18 at 11:18; Status DC Midazolam HCl (Versed) 2 mg STK-MED ONCE .ROUTE ; Start 12/20/18 at 11:17; Stop 12/20/18 at 11:18; Status DC Glycopyrrolate (Robinul) 1 mg STK-MED ONCE .ROUTE ; Start 12/20/18 at 11:17; Stop 12/20/18 at 11:18; Status DC Succinylcholine Chloride (Anectine) 200 mg STK-MED ONCE .ROUTE ; Start 12/20/18 at 11:21; Stop 12/20/18 at 11:21; Status DC Diclofenac Sodium (Voltaren) 1 marilyn QID TP Last administered on 12/22/18at 22:05; Start 12/21/18 at 13:00 Dextrose/Sodium Chloride 1,000 ml @ 125 mls/hr Q8H IV Last administered on 12/23/18at 03:30; Start 12/21/18 at 11:15 Methylprednisolone Acetate (DEPO-Medrol 40MG VIAL) 40 mg 1X ONCE IM Last administered on 12/21/18at 12:00; Start 12/21/18 at 12:00; Stop 12/21/18 at 12:01; Status DC Bupivacaine HCl (Sensorcaine-Mpf 0.25%) 10 ml 1X ONCE IJ Last administered on 12/21/18at 12:00; Start 12/21/18 at 12:00; Stop 12/21/18 at 12:01; Status DC Piperacillin Sod/ Tazobactam Sod 3.375 gm/Sodium Chloride 50 ml @ 100 mls/hr Q6HRS IV Last administered on 12/23/18at 11:13; Start 12/22/18 at 12:00 Heparin Sodium/ Dextrose 500 ml @ 32 mls/min CONT PRN IV SEE PROTOCOL; Start 12/22/18 at 14:30; Stop 12/22/18 at 20:12; Status DC Heparin Sodium (Porcine) (Heparin Sodium) 3,050 unit PRN Q6HRS PRN IV FOR UFH LEVEL LESS THAN 0.2; Start 12/22/18 at 14:30; Stop 12/22/18 at 20:10; Status DC Heparin Sodium (Porcine) (Heparin Sodium) 1,550 unit PRN Q6HRS PRN IV FOR UFH LEVEL 0.2 - 0.29; Start 12/22/18 at 14:30; Stop 12/22/18 at 20:10; Status DC Heparin Sodium (Porcine) (Heparin Sodium) 5,000 unit Q8HRS SQ Last administered on 12/22/18at 22:11; Start 12/22/18 at 22:00; Stop 12/23/18 at 06:10; Status DC Fentanyl Citrate (Fentanyl 2ml Vial) 25 mcg 1X ONCE IVP Last administered on 12/23/18at 03:21; Start 12/23/18 at 03:30; Stop 12/23/18 at 03:31; Status DC Heparin Sodium (Porcine) (Heparin Sodium) 5,000 unit 1X STAT IV ; Start 12/23/18 at 05:58; Stop 12/23/18 at 05:59; Status UNV Heparin Sodium/ Dextrose 500 ml @ 0 mls/hr CONT PRN IV SEE I/O RECORD; Start 12/23/18 at 06:00; Status UNV Heparin Sodium (Porcine) (Heparin Sodium) 5,000 unit 1X ONCE IV Last administered on 12/23/18at 06:16; Start 12/23/18 at 06:30; Stop 12/23/18 at 06:31; Status DC Heparin Sodium/ Dextrose 500 ml @ 24 mls/hr CONT PRN PRN IV DVT Last administered on 12/23/18at 08:33; Start 12/23/18 at 06:30 Heparin Sodium (Porcine) (Heparin Sodium) 3,050 unit PRN Q6HRS PRN IV FOR UFH LEVEL LESS THAN 0.2; Start 12/23/18 at 06:15 Heparin Sodium (Porcine) (Heparin Sodium) 1,550 unit PRN Q6HRS PRN IV FOR UFH LEVEL 0.2 - 0.29; Start 12/23/18 at 06:15 Propofol 20 ml @ As Directed STK-MED ONCE IV ; Start 12/23/18 at 06:28; Stop 12/23/18 at 06:28; Status DC Lidocaine HCl (Lidocaine Pf 2% Vial) 5 ml STK-MED ONCE .ROUTE ; Start 12/23/18 at 06:28; Stop 12/23/18 at 06:28; Status DC Fentanyl Citrate (Fentanyl 2ml Vial) 100 mcg STK-MED ONCE .ROUTE ; Start 12/23/18 at 06:28; Stop 12/23/18 at 06:28; Status DC Rocuronium [place] (Zemuron) 50 mg STK-MED ONCE .ROUTE ; Start 12/23/18 at 06:28; Stop 12/23/18 at 06:28; Status DC Heparin Sodium (Porcine) 5000 unit/Sodium Chloride 505 ml @ 505 mls/hr 1X ONCE IRR ; Start 12/23/18 at 07:30; Stop 12/23/18 at 08:29; Status DC Cefazolin Sodium 1 gm/Sodium Chloride 500 ml @ 500 mls/hr 1X ONCE IRR Last administered on 12/23/18at 08:33; Start 12/23/18 at 07:30; Stop 12/23/18 at 08:29; Status DC Lidocaine HCl 16 ml/Sodium Bicarbonate 4 meq/ Miscellaneous 20 ml @ 20 mls/hr 1X ONCE ID Last administered on 12/23/18at 08:33; Start 12/23/18 at 07:30; Stop 12/23/18 at 08:29; Status DC Ondansetron HCl (Zofran) 4 mg PRN Q6HRS PRN IV NAUSEA/VOMITING; Start 12/23/18 at 07:30; Stop 12/24/18 at 07:29 Fentanyl Citrate (Fentanyl 2ml Vial) 25 mcg PRN Q5MIN PRN IV MILD PAIN 1-3; Start 12/23/18 at 07:30; Stop 12/24/18 at 07:29 Fentanyl Citrate (Fentanyl 2ml Vial) 50 mcg PRN Q5MIN PRN IV MODERATE TO SEVERE PAIN; Start 12/23/18 at 07:30; Stop 12/24/18 at 07:29 Morphine Sulfate (Morphine Sulfate) 1 mg PRN Q10MIN PRN IV SEVERE PAIN 7-10; Start 12/23/18 at 07:30; Stop 12/24/18 at 07:29 Ringer's Solution 1,000 ml @ 30 mls/hr Q24H IV ; Start 12/23/18 at 07:21; Stop 12/23/18 at 19:20 Lidocaine HCl (Xylocaine-Mpf 1% 2ml Vial) 2 ml PRN 1X PRN ID PRIOR TO IV START; Start 12/23/18 at 07:30; Stop 12/24/18 at 07:29 Hydromorphone HCl (Dilaudid) 0.5 mg PRN Q10MIN PRN IV SEV PAIN, Second choice; Start 12/23/18 at 07:30; Stop 12/24/18 at 07:29 Prochlorperazine Edisylate (Compazine) 5 mg PACU PRN PRN IV NAUSEA, MRX1; Start 12/23/18 at 07:30; Stop 12/24/18 at 07:29 Succinylcholine Chloride (Anectine) 200 mg STK-MED ONCE .ROUTE ; Start 12/23/18 at 07:45; Stop 12/23/18 at 07:46; Status DC Fentanyl Citrate (Fentanyl 2ml Vial) 100 mcg STK-MED ONCE .ROUTE ; Start 12/23/18 at 08:24; Stop 12/23/18 at 08:24; Status DC Labetalol HCl (Normodyne Iv Push) 10 mg 1X ONCE IVP ; Start 12/23/18 at 08:30; Stop 12/23/18 at 08:31; Status DC Phenylephrine HCl (Cheko-Synephrine Inj) 10 mg STK-MED ONCE .ROUTE ; Start 12/23/18 at 08:48; Stop 12/23/18 at 08:48; Status DC Iohexol (Omnipaque 300 Mg/ml) 50 ml STK-MED ONCE .ROUTE Last administered on 12/23/18at 08:33; Start 12/23/18 at 09:05; Stop 12/23/18 at 09:05; Status DC Hydrocortisone Sodium Succinate (Solu-CORTEF) 100 mg STK-MED ONCE .ROUTE ; Start 12/23/18 at 09:06; Stop 12/23/18 at 09:06; Status DC Dexamethasone Sodium Phosphate (Decadron) 4 mg STK-MED ONCE .ROUTE ; Start 12/23/18 at 09:06; Stop 12/23/18 at 09:06; Status DC Ondansetron HCl (Zofran) 4 mg STK-MED ONCE .ROUTE ; Start 12/23/18 at 09:06; Stop 12/23/18 at 09:06; Status DC Famotidine (Pepcid Vial) 20 mg STK-MED ONCE .ROUTE ; Start 12/23/18 at 09:06; Stop 12/23/18 at 09:07; Status DC Neostigmine Methylsulfate (Neostigmine Methylsulfate) 5 mg STK-MED ONCE .ROUTE ; Start 12/23/18 at 09:10; Stop 12/23/18 at 09:10; Status DC Glycopyrrolate (Robinul) 1 mg STK-MED ONCE .ROUTE ; Start 12/23/18 at 09:10; Stop 12/23/18 at 09:11; Status DC Heparin Sodium (Porcine) (Heparin Sodium) 10,000 unit STK-MED ONCE .ROUTE ; Start 12/23/18 at 09:23; Stop 12/23/18 at 09:23; Status DC Iohexol (Omnipaque 300 Mg/ml) 50 ml STK-MED ONCE .ROUTE Last administered on 12/23/18at 08:33; Start 12/23/18 at 09:28; Stop 12/23/18 at 09:28; Status DC Sevoflurane (Ultane) 90 ml STK-MED ONCE IH ; Start 12/23/18 at 09:44; Stop 12/23/18 at 09:44; Status DC Hydrocortisone Sodium Succinate (Solu-CORTEF) 100 mg 1X ONCE IV ; Start 12/23/18 at 11:00; Stop 12/23/18 at 11:15; Status DC Labetalol HCl (Normodyne Iv Push) 5 mg PRN Q10MIN PRN IVP HYPERTENSION Last administered on 12/23/18at 11:24; Start 12/23/18 at 11:30 Active Scripts Active Reported Losartan Potassium 100 Mg Tablet 100 Mg PO DAILY Multi-Vitamin Daily (Multivitamin) 1 Each Tablet 1 Tab PO DAILY 30 Days Coumadin (Warfarin Sodium) 4 Mg Tablet 3.5 Mg PO DAILY Atorvastatin Calcium 20 Mg Tablet 1 Tab PO DAILY Toprol Xl (Metoprolol Succinate) 50 Mg Tab.er.24h 25 Mg PO DAILY Amlodipine Besylate 10 Mg Tablet 10 Mg PO DAILY Uloric (Febuxostat) 40 Mg Tablet 1 Tab PO DAILY Detrol La (Tolterodine Tartrate) 4 Mg Cap.er.24h 1 Cap PO DAILY Vitals/I & O Vital Sign - Last 24 Hours 12/22/18 12/22/18 12/22/18 12/22/18 15:00 19:00 20:00 23:00 Temp 98.1 98.6 98.4 98.1 98.6 98.4 Pulse 78 75 84 Resp 18 20 20 B/P (MAP) 153/72 (99) 107/67 (80) 151/63 (92) Pulse Ox 100 95 96 O2 Delivery Room Air Room Air Room Air Room Air 12/23/18 12/23/18 12/23/18 12/23/18 02:43 03:13 03:13 03:21 Temp 98.4 98.4 Pulse 87 Resp 22 20 22 22 B/P (MAP) 160/72 (101) Pulse Ox 97 O2 Delivery Room Air Room Air Room Air Room Air 12/23/18 12/23/18 12/23/18 12/23/18 07:00 08:00 10:26 10:26 Temp 98.1 97.5 98.1 97.5 Pulse 88 110 Resp 20 20 B/P (MAP) 201/85 (123) 117/66 Pulse Ox 98 98 O2 Delivery Room Air Room Air Mask Room Air O2 Flow Rate 10 10 12/23/18 12/23/18 12/23/18 12/23/18 10:40 10:55 11:10 11:24 Pulse 130 120 150 150 Resp 20 20 20 B/P (MAP) 170/90 157/100 176/81 176/81 Pulse Ox 98 98 85 O2 Delivery Simple Mask Simple Mask Nasal Cannula O2 Flow Rate 10 10 2 12/23/18 12/23/18 11:25 11:35 Pulse 150 103 Resp 20 20 B/P (MAP) 156/81 97/55 Pulse Ox 94 97 O2 Delivery Simple Mask Simple Mask O2 Flow Rate 10 10 Intake and Output 12/22/18 12/22/18 12/23/18 15:00 23:00 07:00 Intake Total 50 ml 0 ml Output Total 900 ml 550 ml Balance 50 ml -900 ml -550 ml LAURA CROOKS MD Dec 23, 2018 11:54
--- NOTE | 2018-12-23 12:35 | NUR ---
Patient transferred to . Report given to Martín TRINIDAD
--- NOTE | 2018-12-23 14:58 | PDOC ---
GI PROGRESS NOTES Date Date/Time DATE: 12/23/18 TIME: 14:56 Subjective Subjective Transferred postop after acute ischemic left leg requiring popliteal thromboembolectomy with NG tube in place. No reported bowel movements today Objective Vitals Vital Signs Date Time Temp Pulse Resp B/P (MAP) Pulse Ox O2 Delivery O2 Flow Rate FiO2 12/23/18 11:45 98.2 98 20 102/51 97 Nasal Cannula 4 98.2 12/23/18 11:45 Nasal Cannula 4 12/23/18 11:35 103 20 97/55 97 Simple Mask 10 12/23/18 11:25 150 20 156/81 94 Simple Mask 10 12/23/18 11:24 150 176/81 12/23/18 11:10 150 20 176/81 85 Nasal Cannula 2 12/23/18 10:55 120 20 157/100 98 Simple Mask 10 12/23/18 10:40 130 20 170/90 98 Simple Mask 10 12/23/18 10:26 97.5 110 20 117/66 98 Room Air 10 97.5 12/23/18 10:26 Mask 10 12/23/18 08:00 Room Air 12/23/18 07:00 98.1 88 20 201/85 (123) 98 Room Air 98.1 12/23/18 03:21 22 Room Air 12/23/18 03:13 22 Room Air 12/23/18 03:13 98.4 87 20 160/72 (101) 97 Room Air 98.4 12/23/18 02:43 22 Room Air 12/22/18 23:00 98.4 84 20 151/63 (92) 96 Room Air 98.4 12/22/18 20:00 Room Air 12/22/18 19:00 98.6 75 20 107/67 (80) 95 Room Air 98.6 12/22/18 15:00 98.1 78 18 153/72 (99) 100 Room Air 98.1 Labs Labs Laboratory Tests Test 12/22/18 23:42 12/23/18 06:46 12/23/18 10:59 Glucose (Fingerstick) 130 mg/dL (70-99) 111 mg/dL (70-99) White Blood Count 16.3 x10^3/uL (4.0-11.0) Red Blood Count 3.98 x10^6/uL (3.50-5.40) Hemoglobin 12.2 g/dL (12.0-15.5) Hematocrit 37.6 % (36.0-47.0) Mean Corpuscular Volume 95 fL (79-100) Mean Corpuscular Hemoglobin 31 pg (25-35) Mean Corpuscular Hemoglobin Concent 32 g/dL (31-37) Red Cell Distribution Width 13.8 % (11.5-14.5) Platelet Count 176 x10^3/uL (140-400) Neutrophils (%) (Auto) 86 % (31-73) Lymphocytes (%) (Auto) 8 % (24-48) Monocytes (%) (Auto) 6 % (0-9) Eosinophils (%) (Auto) 0 % (0-3) Basophils (%) (Auto) 0 % (0-3) Neutrophils # (Auto) 14.0 x10^3/uL (1.8-7.7) Lymphocytes # (Auto) 1.2 x10^3/uL (1.0-4.8) Monocytes # (Auto) 1.0 x10^3/uL (0.0-1.1) Eosinophils # (Auto) 0.0 x10^3/uL (0.0-0.7) Basophils # (Auto) 0.0 x10^3/uL (0.0-0.2) Prothrombin Time 16.1 SEC (11.7-14.0) Prothromb Time International Ratio 1.3 (0.8-1.1) Activated Partial Thromboplast Time > 150 SEC (24-38) Heparin Anti-Xa Act, Unfractionated > 1.10 IU/mL (0.30-0.70) Sodium Level 138 mmol/L (136-145) Potassium Level 3.8 mmol/L (3.5-5.1) Chloride Level 104 mmol/L (98-107) Carbon Dioxide Level 24 mmol/L (21-32) Anion Gap 10 (6-14) Blood Urea Nitrogen 36 mg/dL (7-20) Creatinine 1.8 mg/dL (0.6-1.0) Estimated GFR (Cockcroft-Gault) 32.7 Glucose Level 149 mg/dL (70-99) Calcium Level 8.3 mg/dL (8.5-10.1) Physical Exam Physical Exam Awake, mildly confused Chest clear Abdomen: Soft, nontender, few if any bowel sounds appreciated but not particularly distended Assessment Assessment Persistent small bowel obstruction Ischemic left leg requiring acute popliteal thromboembolectomy with PRACHI Bentley MD Dec 23, 2018 14:58
[2018-12-23] MEDS: ANTI-COAG MONITOR BY PHARMACY. MC PRN (15:35)
--- NOTE | 2018-12-23 16:12 | PDOC ---
Infectious Disease Note Subjective Subjective Acute onset left leg pain s/p left Iliac angioplasty and stent placement Transferred to Vital Sign Vital Signs Vital Signs Date Time Temp Pulse Resp B/P (MAP) Pulse Ox O2 Delivery O2 Flow Rate FiO2 12/23/18 11:45 98.2 98 20 102/51 97 Nasal Cannula 4 98.2 Physical Exam PHYSICAL EXAM GENERAL: Propped up in bed, awake, appears comfortable HEENT: Oral cavity clear, NGT NECK: Supple, no JVD. LUNGS: Clear bilaterally. HEART: S1 S2, Irregularly irregular. ABDOMEN: Obese, soft, mild tenderness in the right upper quadrant : Sheldon EXTREMITIES: No edema, no cyanosis. Provena left groin in place, DP palpable SKIN: Warm, dry. No generalized rash. NEUROLOGIC: Alert and oriented x 3, grossly nonfocal. PIV Labs Lab Laboratory Tests Test 12/22/18 23:42 12/23/18 06:46 12/23/18 10:59 Glucose (Fingerstick) 130 mg/dL (70-99) 111 mg/dL (70-99) White Blood Count 16.3 x10^3/uL (4.0-11.0) Red Blood Count 3.98 x10^6/uL (3.50-5.40) Hemoglobin 12.2 g/dL (12.0-15.5) Hematocrit 37.6 % (36.0-47.0) Mean Corpuscular Volume 95 fL (79-100) Mean Corpuscular Hemoglobin 31 pg (25-35) Mean Corpuscular Hemoglobin Concent 32 g/dL (31-37) Red Cell Distribution Width 13.8 % (11.5-14.5) Platelet Count 176 x10^3/uL (140-400) Neutrophils (%) (Auto) 86 % (31-73) Lymphocytes (%) (Auto) 8 % (24-48) Monocytes (%) (Auto) 6 % (0-9) Eosinophils (%) (Auto) 0 % (0-3) Basophils (%) (Auto) 0 % (0-3) Neutrophils # (Auto) 14.0 x10^3/uL (1.8-7.7) Lymphocytes # (Auto) 1.2 x10^3/uL (1.0-4.8) Monocytes # (Auto) 1.0 x10^3/uL (0.0-1.1) Eosinophils # (Auto) 0.0 x10^3/uL (0.0-0.7) Basophils # (Auto) 0.0 x10^3/uL (0.0-0.2) Prothrombin Time 16.1 SEC (11.7-14.0) Prothromb Time International Ratio 1.3 (0.8-1.1) Activated Partial Thromboplast Time > 150 SEC (24-38) Heparin Anti-Xa Act, Unfractionated > 1.10 IU/mL (0.30-0.70) Sodium Level 138 mmol/L (136-145) Potassium Level 3.8 mmol/L (3.5-5.1) Chloride Level 104 mmol/L (98-107) Carbon Dioxide Level 24 mmol/L (21-32) Anion Gap 10 (6-14) Blood Urea Nitrogen 36 mg/dL (7-20) Creatinine 1.8 mg/dL (0.6-1.0) Estimated GFR (Cockcroft-Gault) 32.7 Glucose Level 149 mg/dL (70-99) Calcium Level 8.3 mg/dL (8.5-10.1) Micro Objective Assessment Leukocytosis, likely multifactorial from ileus versus small bowel obstruction versus urinary tract infection. Urinary retention, with Sheldon in place this admission Chronic abdominal pain, with nausea and vomiting on presentation. Acute kidney injury on chronic kidney disease, with underlying left nephrectomy. Ileus versus small bowel obstruction, NG tube with bilious drainage. Pyuria UC lactobacillus Acute onset left lower extremity ischemia s/p thrombectomy, angioplasty and stent, 12/23 h/o A-fib Plan Plan of Care Continue zosyn s/p dexamethasone, 12/23 Gen surgery following Follow up cultures and labs. Maintain aspiration precaution. Patient seen and examined. Chart reviewed in detail. Case discussed with DIVISIONAL HUMAN RESOURCES DIRECTOR. Agree with above plan. OUMAR CLEMENT APRN Dec 23, 2018 16:12 LEXY ZAMORA MD Dec 23, 2018 21:43
--- NOTE | 2018-12-23 16:43 | NUR ---
Patient inquires about NGT removal. Dr. Cedeno paged and notified of patient's request. Attempted to contact Dr. Rojas per Dr. Cedeno's order, but unable to do so at this time.
[2018-12-23] MEDS: POTASSIUM CL 20MEQ D5-0.45NACL 1,000 ML IV SCH ×2 (18:31→20:00)
[2018-12-24] MEDS: PIPERACILLIN/TAZOBACTAM 3.375 GM in IV NORMAL SALINE 50ML 50 ML IV SCH ×5 (00:10→23:30)
[2018-12-24 03:00] VITALS: BP_SYST 150; BP_SYST 174; BP_DIAS 77; BP_DIAS 78
[2018-12-24 03:51] LABS: BASO % 0 % (0-3); CALCIUM 7.9 mg/dL (8.5-10.1); CREATININE 1.9 mg/dL (0.6-1.0); EOS % 0 % (0-3); GFR 30.7; HEMATOCRIT 35.3 % (36.0-47.0); HEMOGLOBIN 11.1 g/dL (12.0-15.5); LYMPH # 0.6 x10^3/uL (1.0-4.8); LYMPH % 4 % (24-48); MEAN CORPUSCULAR HEMOGLOBIN 30 pg (25-35); MEAN CORPUSCULAR HGB CONC 32 g/dL (31-37); MEAN CORPUSCULAR VOLUME 96 fL (79-100); MONO # 1.1 x10^3/uL (0.0-1.1); MONO % 8 % (0-9); NEUT # 11.2 x10^3/uL (1.8-7.7); NEUT % 87 % (31-73); PLATELET COUNT 174 x10^3/uL (140-400); POTASSIUM 4.1 mmol/L (3.5-5.1); RED BLOOD COUNT 3.68 x10^6/uL (3.50-5.40); RED CELL DISTRIBUTION WIDTH 14.2 % (11.5-14.5); WHITE BLOOD COUNT 12.8 x10^3/uL (4.0-11.0)
[2018-12-24 07:00] VITALS: BP 151/68
[2018-12-24] MEDS: POTASSIUM CL 20MEQ D5-0.45NACL 1,000 ML IV SCH (08:24)
[2018-12-24] MEDS: PANTOPRAZOLE IV PUSH 40 MG VIAL. IVP SCH (08:26)
[2018-12-24] MEDS: DICLOFENAC SODIUM 1% TOPICAL GEL 100GM TUBE. TP SCH ×4 (08:29→21:58)
--- NOTE | 2018-12-24 09:48 | PDOC ---
Infectious Disease Note Subjective Subjective Feeling better Comfortable No F/C/N/V/SOA ROS ROS per HPI Vital Sign Vital Signs Vital Signs Date Time Temp Pulse Resp B/P (MAP) Pulse Ox O2 Delivery O2 Flow Rate FiO2 12/24/18 07:00 97.4 92 18 151/68 (95) 100 Room Air 97.4 12/24/18 03:00 4.0 Physical Exam PHYSICAL EXAM GENERAL: Propped up in bed, alert, visiting with son HEENT: Oral cavity clear, NGT NECK: Supple, no JVD. LUNGS: Clear bilaterally. HEART: S1 S2, Irregularly irregular. ABDOMEN: Obese, soft, mild tenderness in the right upper quadrant : Sheldon EXTREMITIES: No edema, no cyanosis. Provena left groin in place, DP palpable SKIN: Warm, dry. No generalized rash. NEUROLOGIC: Alert and oriented x 3, grossly nonfocal. PIV Labs Lab Laboratory Tests Test 12/23/18 10:59 12/23/18 17:07 12/23/18 20:00 12/24/18 03:30 White Blood Count 16.3 x10^3/uL (4.0-11.0) 12.8 x10^3/uL (4.0-11.0) Red Blood Count 3.98 x10^6/uL (3.50-5.40) 3.68 x10^6/uL (3.50-5.40) Hemoglobin 12.2 g/dL (12.0-15.5) 11.1 g/dL (12.0-15.5) Hematocrit 37.6 % (36.0-47.0) 35.3 % (36.0-47.0) Mean Corpuscular Volume 95 fL (79-100) 96 fL (79-100) Mean Corpuscular Hemoglobin 31 pg (25-35) 30 pg (25-35) Mean Corpuscular Hemoglobin Concent 32 g/dL (31-37) 32 g/dL (31-37) Red Cell Distribution Width 13.8 % (11.5-14.5) 14.2 % (11.5-14.5) Platelet Count 176 x10^3/uL (140-400) 174 x10^3/uL (140-400) Neutrophils (%) (Auto) 86 % (31-73) 87 % (31-73) Lymphocytes (%) (Auto) 8 % (24-48) 4 % (24-48) Monocytes (%) (Auto) 6 % (0-9) 8 % (0-9) Eosinophils (%) (Auto) 0 % (0-3) 0 % (0-3) Basophils (%) (Auto) 0 % (0-3) 0 % (0-3) Neutrophils # (Auto) 14.0 x10^3/uL (1.8-7.7) 11.2 x10^3/uL (1.8-7.7) Lymphocytes # (Auto) 1.2 x10^3/uL (1.0-4.8) 0.6 x10^3/uL (1.0-4.8) Monocytes # (Auto) 1.0 x10^3/uL (0.0-1.1) 1.1 x10^3/uL (0.0-1.1) Eosinophils # (Auto) 0.0 x10^3/uL (0.0-0.7) 0.0 x10^3/uL (0.0-0.7) Basophils # (Auto) 0.0 x10^3/uL (0.0-0.2) 0.0 x10^3/uL (0.0-0.2) Prothrombin Time 16.1 SEC (11.7-14.0) Prothromb Time International Ratio 1.3 (0.8-1.1) Activated Partial Thromboplast Time > 150 SEC (24-38) Heparin Anti-Xa Act, Unfractionated > 1.10 IU/mL (0.30-0.70) 0.88 IU/mL (0.30-0.70) 0.57 IU/mL (0.30-0.70) Sodium Level 138 mmol/L (136-145) 130 mmol/L (136-145) Potassium Level 3.8 mmol/L (3.5-5.1) 4.1 mmol/L (3.5-5.1) Chloride Level 104 mmol/L (98-107) 106 mmol/L (98-107) Carbon Dioxide Level 24 mmol/L (21-32) 15 mmol/L (21-32) Anion Gap 10 (6-14) 9 (6-14) Blood Urea Nitrogen 36 mg/dL (7-20) 39 mg/dL (7-20) Creatinine 1.8 mg/dL (0.6-1.0) 1.9 mg/dL (0.6-1.0) Estimated GFR (Cockcroft-Gault) 32.7 30.7 Glucose Level 149 mg/dL (70-99) 129 mg/dL (70-99) Calcium Level 8.3 mg/dL (8.5-10.1) 7.9 mg/dL (8.5-10.1) Glucose (Fingerstick) 118 mg/dL (70-99) Micro Objective Assessment Leukocytosis, likely multifactorial from ileus versus small bowel obstruction versus urinary tract infection. better Urinary retention, with Sheldon in place this admission Chronic abdominal pain, with nausea and vomiting on presentation. Acute kidney injury on chronic kidney disease, with underlying left nephrectomy. Ileus versus small bowel obstruction, NG tube with bilious drainage. Pyuria UC lactobacillus Acute onset left lower extremity ischemia s/p thrombectomy, angioplasty and stent, 12/23 h/o A-fib Plan Plan of Care Continue zosyn s/p dexamethasone, 12/23 Gen surgery following Maintain aspiration precaution. CBC in am D/w son at bedside Patient seen and examined. Chart reviewed in detail. Case discussed with RECREATION THERAPY TEACHER. Agree with above plan OUMAR CLEMENT APRN Dec 24, 2018 09:48 LEXY ZAMORA MD Dec 24, 2018 18:54
--- NOTE | 2018-12-24 09:57 | PDOC ---
PROGRESS NOTES Subjective Subjective feels better. denies abdominal pain. last BM 2 days ago. no NG return. will check KUB for NG position . left foot pedal pulses is present. and foot is warm. lab reviewed. sodium 130. potassium 4.1 creatinine 1.9 and wbc lower. Objective Objective Vital Signs Date Time Temp Pulse Resp B/P (MAP) Pulse Ox O2 Delivery O2 Flow Rate FiO2 12/24/18 07:00 97.4 92 18 151/68 (95) 100 Room Air 97.4 12/24/18 03:00 4.0 Intake and Output 12/24/18 07:00 Intake Total 1330 ml Output Total 1075 ml Balance 255 ml Intake Oral 0 ml IV Total 1330 ml Output Urine Total 975 ml Estimated Blood Loss 100 ml Physical Exam Abdomen: Soft, No tenderness, Other (not distended. bowel sounds present but decreased) Heart: Normal S1, Normal S2 Extremities: No edema, Other (provena pump left groin. left foot warm 2 plus DP pulse) General: Alert HEENT: Atraumatic Lungs: Clear to auscultation Neuro: Normal speech Psych/Mental Status: Mental status NL Skin: No rashes Assessment Assessment Problemspartial small-bowel obstruction improved 2. Acute kidney injury better on top of chronic kidney disease stage 3. serum creatinine closer to baseline . baseline is 1.4 3. Hypertension. 4. Hyperlipidemia. 5. Chronic atrial fibrillation with a controlled VR. had episode of increased VR post op now controlled osteoarthritis left knee treated with steroid injection 6. Chronic gout. 7. History of a left nephrectomy. left popliteal and left iliac thromboembolectomy with left iliac artery angioplasty and stent mild leukocytosis improved hyponatremia Medical Problems: (1) Epigastric pain Status: Acute (2) Epigastric pain Status: Acute (3) Nausea Status: Acute (4) Nausea Status: Acute (5) Small bowel obstruction Status: Acute Plan Plan of Care continue iv heparin KUB to check NG position AAS tomorrow change IV fluids to D5NS with KCl lab tomorrow await dr. Rojas's input continue telemetry IV antibiotics per ID Comment Review of Relevant I have reviewed the following items rubia (where applicable) has been applied. Labs Laboratory Tests Test 12/22/18 11:51 12/22/18 23:42 12/23/18 06:46 12/23/18 10:59 Glucose (Fingerstick) 143 mg/dL (70-99) 130 mg/dL (70-99) 111 mg/dL (70-99) White Blood Count 16.3 x10^3/uL (4.0-11.0) Red Blood Count 3.98 x10^6/uL (3.50-5.40) Hemoglobin 12.2 g/dL (12.0-15.5) Hematocrit 37.6 % (36.0-47.0) Mean Corpuscular Volume 95 fL (79-100) Mean Corpuscular Hemoglobin 31 pg (25-35) Mean Corpuscular Hemoglobin Concent 32 g/dL (31-37) Red Cell Distribution Width 13.8 % (11.5-14.5) Platelet Count 176 x10^3/uL (140-400) Neutrophils (%) (Auto) 86 % (31-73) Lymphocytes (%) (Auto) 8 % (24-48) Monocytes (%) (Auto) 6 % (0-9) Eosinophils (%) (Auto) 0 % (0-3) Basophils (%) (Auto) 0 % (0-3) Neutrophils # (Auto) 14.0 x10^3/uL (1.8-7.7) Lymphocytes # (Auto) 1.2 x10^3/uL (1.0-4.8) Monocytes # (Auto) 1.0 x10^3/uL (0.0-1.1) Eosinophils # (Auto) 0.0 x10^3/uL (0.0-0.7) Basophils # (Auto) 0.0 x10^3/uL (0.0-0.2) Prothrombin Time 16.1 SEC (11.7-14.0) Prothromb Time International Ratio 1.3 (0.8-1.1) Activated Partial Thromboplast Time > 150 SEC (24-38) Heparin Anti-Xa Act, Unfractionated > 1.10 IU/mL (0.30-0.70) Sodium Level 138 mmol/L (136-145) Potassium Level 3.8 mmol/L (3.5-5.1) Chloride Level 104 mmol/L (98-107) Carbon Dioxide Level 24 mmol/L (21-32) Anion Gap 10 (6-14) Blood Urea Nitrogen 36 mg/dL (7-20) Creatinine 1.8 mg/dL (0.6-1.0) Estimated GFR (Cockcroft-Gault) 32.7 Glucose Level 149 mg/dL (70-99) Calcium Level 8.3 mg/dL (8.5-10.1) Test 12/23/18 17:07 12/23/18 20:00 12/24/18 03:30 Glucose (Fingerstick) 118 mg/dL (70-99) Heparin Anti-Xa Act, Unfractionated 0.88 IU/mL (0.30-0.70) 0.57 IU/mL (0.30-0.70) White Blood Count 12.8 x10^3/uL (4.0-11.0) Red Blood Count 3.68 x10^6/uL (3.50-5.40) Hemoglobin 11.1 g/dL (12.0-15.5) Hematocrit 35.3 % (36.0-47.0) Mean Corpuscular Volume 96 fL (79-100) Mean Corpuscular Hemoglobin 30 pg (25-35) Mean Corpuscular Hemoglobin Concent 32 g/dL (31-37) Red Cell Distribution Width 14.2 % (11.5-14.5) Platelet Count 174 x10^3/uL (140-400) Neutrophils (%) (Auto) 87 % (31-73) Lymphocytes (%) (Auto) 4 % (24-48) Monocytes (%) (Auto) 8 % (0-9) Eosinophils (%) (Auto) 0 % (0-3) Basophils (%) (Auto) 0 % (0-3) Neutrophils # (Auto) 11.2 x10^3/uL (1.8-7.7) Lymphocytes # (Auto) 0.6 x10^3/uL (1.0-4.8) Monocytes # (Auto) 1.1 x10^3/uL (0.0-1.1) Eosinophils # (Auto) 0.0 x10^3/uL (0.0-0.7) Basophils # (Auto) 0.0 x10^3/uL (0.0-0.2) Sodium Level 130 mmol/L (136-145) Potassium Level 4.1 mmol/L (3.5-5.1) Chloride Level 106 mmol/L (98-107) Carbon Dioxide Level 15 mmol/L (21-32) Anion Gap 9 (6-14) Blood Urea Nitrogen 39 mg/dL (7-20) Creatinine 1.9 mg/dL (0.6-1.0) Estimated GFR (Cockcroft-Gault) 30.7 Glucose Level 129 mg/dL (70-99) Calcium Level 7.9 mg/dL (8.5-10.1) Laboratory Tests Test 12/23/18 10:59 12/23/18 17:07 12/23/18 20:00 12/24/18 03:30 White Blood Count 16.3 x10^3/uL (4.0-11.0) 12.8 x10^3/uL (4.0-11.0) Red Blood Count 3.98 x10^6/uL (3.50-5.40) 3.68 x10^6/uL (3.50-5.40) Hemoglobin 12.2 g/dL (12.0-15.5) 11.1 g/dL (12.0-15.5) Hematocrit 37.6 % (36.0-47.0) 35.3 % (36.0-47.0) Mean Corpuscular Volume 95 fL (79-100) 96 fL (79-100) Mean Corpuscular Hemoglobin 31 pg (25-35) 30 pg (25-35) Mean Corpuscular Hemoglobin Concent 32 g/dL (31-37) 32 g/dL (31-37) Red Cell Distribution Width 13.8 % (11.5-14.5) 14.2 % (11.5-14.5) Platelet Count 176 x10^3/uL (140-400) 174 x10^3/uL (140-400) Neutrophils (%) (Auto) 86 % (31-73) 87 % (31-73) Lymphocytes (%) (Auto) 8 % (24-48) 4 % (24-48) Monocytes (%) (Auto) 6 % (0-9) 8 % (0-9) Eosinophils (%) (Auto) 0 % (0-3) 0 % (0-3) Basophils (%) (Auto) 0 % (0-3) 0 % (0-3) Neutrophils # (Auto) 14.0 x10^3/uL (1.8-7.7) 11.2 x10^3/uL (1.8-7.7) Lymphocytes # (Auto) 1.2 x10^3/uL (1.0-4.8) 0.6 x10^3/uL (1.0-4.8) Monocytes # (Auto) 1.0 x10^3/uL (0.0-1.1) 1.1 x10^3/uL (0.0-1.1) Eosinophils # (Auto) 0.0 x10^3/uL (0.0-0.7) 0.0 x10^3/uL (0.0-0.7) Basophils # (Auto) 0.0 x10^3/uL (0.0-0.2) 0.0 x10^3/uL (0.0-0.2) Prothrombin Time 16.1 SEC (11.7-14.0) Prothromb Time International Ratio 1.3 (0.8-1.1) Activated Partial Thromboplast Time > 150 SEC (24-38) Heparin Anti-Xa Act, Unfractionated > 1.10 IU/mL (0.30-0.70) 0.88 IU/mL (0.30-0.70) 0.57 IU/mL (0.30-0.70) Sodium Level 138 mmol/L (136-145) 130 mmol/L (136-145) Potassium Level 3.8 mmol/L (3.5-5.1) 4.1 mmol/L (3.5-5.1) Chloride Level 104 mmol/L (98-107) 106 mmol/L (98-107) Carbon Dioxide Level 24 mmol/L (21-32) 15 mmol/L (21-32) Anion Gap 10 (6-14) 9 (6-14) Blood Urea Nitrogen 36 mg/dL (7-20) 39 mg/dL (7-20) Creatinine 1.8 mg/dL (0.6-1.0) 1.9 mg/dL (0.6-1.0) Estimated GFR (Cockcroft-Gault) 32.7 30.7 Glucose Level 149 mg/dL (70-99) 129 mg/dL (70-99) Calcium Level 8.3 mg/dL (8.5-10.1) 7.9 mg/dL (8.5-10.1) Glucose (Fingerstick) 118 mg/dL (70-99) Microbiology 12/18/18 Urine Culture - Final, Complete 12/18/18 Urine Culture Result 1 (ALEJANDRINA) - Final, Complete Medications Current Medications Ondansetron HCl (Zofran) 4 mg 1X ONCE IM ; Start 12/16/18 at 09:30; Stop 12/16/18 at 09:31; Status DC Fentanyl Citrate (Fentanyl 2ml Vial) 75 mcg 1X ONCE IVP Last administered on 12/16/18at 09:46; Start 12/16/18 at 09:45; Stop 12/16/18 at 09:46; Status DC Ondansetron HCl (Zofran) 4 mg 1X ONCE IVP Last administered on 12/16/18at 09:51; Start 12/16/18 at 10:00; Stop 12/16/18 at 10:01; Status DC Sodium Chloride 1,000 ml @ 1,000 mls/hr 1X ONCE IV Last administered on at 10:40; Start 12/16/18 at 10:15; Stop 12/16/18 at 11:14; Status DC Clonidine HCl (Catapres) 0.1 mg 1X ONCE PO Last administered on 12/16/18at 15:12; Start 12/16/18 at 14:15; Stop 12/16/18 at 14:16; Status DC Fentanyl Citrate (Fentanyl 2ml Vial) 75 mcg 1X ONCE IVP ; Start 12/16/18 at 15:15; Stop 12/16/18 at 15:16; Status DC Ondansetron HCl (Zofran) 4 mg PRN Q8HRS PRN IV NAUSEA/VOMITING; Start 12/16/18 at 15:15; Stop 12/16/18 at 17:10; Status DC Fentanyl Citrate (Fentanyl 2ml Vial) 50 mcg PRN Q1HR PRN IV PAIN Last administered on 12/17/18at 07:28; Start 12/16/18 at 15:15; Stop 12/17/18 at 15:14; Status DC Sodium Chloride 1,000 ml @ 125 mls/hr Q8H IV ; Start 12/16/18 at 15:10; Stop 12/16/18 at 17:26; Status DC Acetaminophen (Tylenol) 650 mg PRN Q4HRS PRN PO FEVER; Start 12/16/18 at 15:15; Stop 12/17/18 at 15:14; Status DC Potassium Chloride/Dextrose/ Sod Cl 1,000 ml @ 100 mls/hr Q10H IV Last administered on 12/18/18at 01:27; Start 12/16/18 at 17:00; Stop 12/18/18 at 10:34; Status DC Ondansetron HCl (Zofran) 4 mg PRN Q6HRS PRN IVP NAUSEA/VOMITING Last administered on 12/18/18at 21:17; Start 12/16/18 at 17:00 Hydralazine HCl (Apresoline Inj) 10 mg PRN Q6HRS PRN IVP ELEVATED BP, SEE COMMENTS Last administered on 12/22/18 03:07; Start 12/17/18 at 01:00 Enoxaparin Sodium (Lovenox 100mg Syringe) 100 mg DAILY SQ Last administered on 12/17/18at 12:49; Start 12/17/18 at 10:30; Stop 12/19/18 at 09:14; Status DC Info (Anti-Coagulation Monitoring By Pharmacy) 1 each PRN DAILY PRN MC SEE COMMENTS Last administered on 12/23/18at 15:35; Start 12/17/18 at 10:15 Pantoprazole Sodium (PROTONIX VIAL for IV PUSH) 40 mg DAILYAC IVP Last administered on 12/24/18at 08:26; Start 12/17/18 at 10:30 Acetaminophen (Tylenol Supp) 650 mg PRN Q6HRS PRN NC HEADACHE / TEMP; Start 12/17/18 at 10:00 Fentanyl Citrate (Fentanyl 2ml Vial) 50 mcg PRN Q4HRS PRN IVP PAIN Last administered on 12/23/18at 22:01; Start 12/17/18 at 10:00 Insulin Human Lispro (HumaLOG) 0-6 UNITS BG 300-399... Q6HRS SQ ; Start 12/17/18 at 12:00; Stop 12/17/18 at 10:24; Status DC Ceftriaxone Sodium (Rocephin) 1 gm Q24H IVP Last administered on 12/21/18at 12:42; Start 12/18/18 at 11:00; Stop 12/22/18 at 10:07; Status DC Dextrose/Sodium Chloride 1,000 ml @ 150 mls/hr Q6H40M IV Last administered on 12/20/18at 03:00; Start 12/18/18 at 10:30; Stop 12/20/18 at 09:52; Status DC Bupivacaine HCl/ Epinephrine Bitart (Sensorcain-Epi 0.5%-1:875056 Mpf) 30 ml 1X ONCE INJ ; Start 12/18/18 at 15:00; Stop 12/18/18 at 15:01; Status Cancel Bupivacaine HCl/ Epinephrine Bitart (Sensorcain-Epi 0.5%-1:891542 Mpf) 30 ml 1X ONCE INJ Last administered on 12/19/18at 06:00; Start 12/19/18 at 06:00; Stop 12/19/18 at 06:01; Status DC Ondansetron HCl (Zofran) 4 mg PRN Q6HRS PRN IV NAUSEA/VOMITING; Start 12/19/18 at 07:00; Stop 12/20/18 at 06:59; Status DC Fentanyl Citrate (Fentanyl 2ml Vial) 25 mcg PRN Q5MIN PRN IV MILD PAIN 1-3; Start 12/19/18 at 07:00; Stop 12/20/18 at 06:59; Status DC Fentanyl Citrate (Fentanyl 2ml Vial) 50 mcg PRN Q5MIN PRN IV MODERATE TO SEVERE PAIN; Start 12/19/18 at 07:00; Stop 12/20/18 at 06:59; Status DC Morphine Sulfate (Morphine Sulfate) 1 mg PRN Q10MIN PRN IV SEVERE PAIN 7-10; Start 12/19/18 at 07:00; Stop 12/20/18 at 06:59; Status DC Ringer's Solution 1,000 ml @ 30 mls/hr Q24H IV ; Start 12/19/18 at 07:00; Stop 12/19/18 at 18:59; Status DC Lidocaine HCl (Xylocaine-Mpf 1% 2ml Vial) 2 ml PRN 1X PRN ID PRIOR TO IV START; Start 12/19/18 at 07:00; Stop 12/20/18 at 06:59; Status DC Hydromorphone HCl (Dilaudid) 0.5 mg PRN Q10MIN PRN IV SEV PAIN, Second choice; Start 12/19/18 at 07:00; Stop 12/20/18 at 06:59; Status DC Prochlorperazine Edisylate (Compazine) 5 mg PACU PRN PRN IV NAUSEA, MRX1; Start 12/19/18 at 07:00; Stop 12/20/18 at 06:59; Status DC Phytonadione 10 mg/Dextrose 51 ml @ 102 mls/hr 1X ONCE IV Last administered on 12/19/18at 10:37; Start 12/19/18 at 09:15; Stop 12/19/18 at 09:44; Status DC Potassium Chloride/Dextrose/ Sod Cl 1,000 ml @ 150 mls/hr Q6H40M IV Last administered on 12/21/18at 03:26; Start 12/20/18 at 11:00; Stop 12/21/18 at 11:06; Status DC Lidocaine HCl (Lidocaine Pf 2% Vial) 5 ml STK-MED ONCE .ROUTE ; Start 12/20/18 at 11:14; Stop 12/20/18 at 11:14; Status DC Neostigmine Methylsulfate (Bloxiverz) 10 mg STK-MED ONCE .ROUTE ; Start 12/20/18 at 11:16; Stop 12/20/18 at 11:17; Status DC Rocuronium [place] (Zemuron) 50 mg STK-MED ONCE .ROUTE ; Start 12/20/18 at 11:17; Stop 12/20/18 at 11:17; Status DC Fentanyl Citrate (Fentanyl 2ml Vial) 100 mcg STK-MED ONCE .ROUTE ; Start 12/20/18 at 11:17; Stop 12/20/18 at 11:18; Status DC Midazolam HCl (Versed) 2 mg STK-MED ONCE .ROUTE ; Start 12/20/18 at 11:17; Stop 12/20/18 at 11:18; Status DC Glycopyrrolate (Robinul) 1 mg STK-MED ONCE .ROUTE ; Start 12/20/18 at 11:17; Stop 12/20/18 at 11:18; Status DC Succinylcholine Chloride (Anectine) 200 mg STK-MED ONCE .ROUTE ; Start 12/20/18 at 11:21; Stop 12/20/18 at 11:21; Status DC Diclofenac Sodium (Voltaren) 1 marilyn QID TP Last administered on 12/24/18at 08:2 9; Start 12/21/18 at 13:00 Dextrose/Sodium Chloride 1,000 ml @ 125 mls/hr Q8H IV Last administered on 12/23/18at 03:30; Start 12/21/18 at 11:15; Stop 12/23/18 at 11:59; Status DC Methylprednisolone Acetate (DEPO-Medrol 40MG VIAL) 40 mg 1X ONCE IM Last administered on 12/21/18at 12:00; Start 12/21/18 at 12:00; Stop 12/21/18 at 12:01; Status DC Bupivacaine HCl (Sensorcaine-Mpf 0.25%) 10 ml 1X ONCE IJ Last administered on 12/21/18at 12:00; Start 12/21/18 at 12:00; Stop 12/21/18 at 12:01; Status DC Piperacillin Sod/ Tazobactam Sod 3.375 gm/Sodium Chloride 50 ml @ 100 mls/hr Q6HRS IV Last administered on 12/24/18at 05:11; Start 12/22/18 at 12:00 Heparin Sodium/ Dextrose 500 ml @ 32 mls/min CONT PRN IV SEE PROTOCOL; Start 12/22/18 at 14:30; Stop 12/22/18 at 20:12; Status DC Heparin Sodium (Porcine) (Heparin Sodium) 3,050 unit PRN Q6HRS PRN IV FOR UFH LEVEL LESS THAN 0.2; Start 12/22/18 at 14:30; Stop 12/22/18 at 20:10; Status DC Heparin Sodium (Porcine) (Heparin Sodium) 1,550 unit PRN Q6HRS PRN IV FOR UFH LEVEL 0.2 - 0.29; Start 12/22/18 at 14:30; Stop 12/22/18 at 20:10; Status DC Heparin Sodium (Porcine) (Heparin Sodium) 5,000 unit Q8HRS SQ Last administered on 12/22/18at 22:11; Start 12/22/18 at 22:00; Stop 12/23/18 at 06:10; Status DC Fentanyl Citrate (Fentanyl 2ml Vial) 25 mcg 1X ONCE IVP Last administered on 12/23/18at 03:21; Start 12/23/18 at 03:30; Stop 12/23/18 at 03:31; Status DC Heparin Sodium (Porcine) (Heparin Sodium) 5,000 unit 1X STAT IV ; Start 12/23/18 at 05:58; Stop 12/23/18 at 05:59; Status UNV Heparin Sodium/ Dextrose 500 ml @ 0 mls/hr CONT PRN IV SEE I/O RECORD; Start 12/23/18 at 06:00; Status UNV Heparin Sodium (Porcine) (Heparin Sodium) 5,000 unit 1X ONCE IV Last administered on 12/23/18at 06:16; Start 12/23/18 at 06:30; Stop 12/23/18 at 06:31; Status DC Heparin Sodium/ Dextrose 500 ml @ 24 mls/hr CONT PRN PRN IV DVT Last administered on 12/23/18at 08:33; Start 12/23/18 at 06:30 Heparin Sodium (Porcine) (Heparin Sodium) 3,050 unit PRN Q6HRS PRN IV FOR UFH LEVEL LESS THAN 0.2; Start 12/23/18 at 06:15 Heparin Sodium (Porcine) (Heparin Sodium) 1,550 unit PRN Q6HRS PRN IV FOR UFH LEVEL 0.2 - 0.29; Start 12/23/18 at 06:15 Propofol 20 ml @ As Directed STK-MED ONCE IV ; Start 12/23/18 at 06:28; Stop 12/23/18 at 06:28; Status DC Lidocaine HCl (Lidocaine Pf 2% Vial) 5 ml STK-MED ONCE .ROUTE ; Start 12/23/18 at 06:28; Stop 12/23/18 at 06:28; Status DC Fentanyl Citrate (Fentanyl 2ml Vial) 100 mcg STK-MED ONCE .ROUTE ; Start 12/23/18 at 06:28; Stop 12/23/18 at 06:28; Status DC Rocuronium [place] (Zemuron) 50 mg STK-MED ONCE .ROUTE ; Start 12/23/18 at 06:28; Stop 12/23/18 at 06:28; Status DC Heparin Sodium (Porcine) 5000 unit/Sodium Chloride 505 ml @ 505 mls/hr 1X ONCE IRR ; Start 12/23/18 at 07:30; Stop 12/23/18 at 08:29; Status DC Cefazolin Sodium 1 gm/Sodium Chloride 500 ml @ 500 mls/hr 1X ONCE IRR Last administered on 12/23/18at 08:33; Start 12/23/18 at 07:30; Stop 12/23/18 at 08:29; Status DC Lidocaine HCl 16 ml/Sodium Bicarbonate 4 meq/ Miscellaneous 20 ml @ 20 mls/hr 1X ONCE ID Last administered on 12/23/18at 08:33; Start 12/23/18 at 07:30; Stop 12/23/18 at 08:29; Status DC Ondansetron HCl (Zofran) 4 mg PRN Q6HRS PRN IV NAUSEA/VOMITING; Start 12/23/18 at 07:30; Stop 12/24/18 at 07:29; Status DC Fentanyl Citrate (Fentanyl 2ml Vial) 25 mcg PRN Q5MIN PRN IV MILD PAIN 1-3; Start 12/23/18 at 07:30; Stop 12/24/18 at 07:29; Status DC Fentanyl Citrate (Fentanyl 2ml Vial) 50 mcg PRN Q5MIN PRN IV MODERATE TO SEVERE PAIN; Start 12/23/18 at 07:30; Stop 12/24/18 at 07:29; Status DC Morphine Sulfate (Morphine Sulfate) 1 mg PRN Q10MIN PRN IV SEVERE PAIN 7-10; Start 12/23/18 at 07:30; Stop 12/24/18 at 07:29; Status DC Ringer's Solution 1,000 ml @ 30 mls/hr Q24H IV ; Start 12/23/18 at 07:21; Stop 12/23/18 at 19:20; Status DC Lidocaine HCl (Xylocaine-Mpf 1% 2ml Vial) 2 ml PRN 1X PRN ID PRIOR TO IV START; Start 12/23/18 at 07:30; Stop 12/24/18 at 07:29; Status DC Hydromorphone HCl (Dilaudid) 0.5 mg PRN Q10MIN PRN IV SEV PAIN, Second choice; Start 12/23/18 at 07:30; Stop 12/24/18 at 07:29; Status DC Prochlorperazine Edisylate (Compazine) 5 mg PACU PRN PRN IV NAUSEA, MRX1; Start 12/23/18 at 07:30; Stop 12/24/18 at 07:29; Status DC Succinylcholine Chloride (Anectine) 200 mg STK-MED ONCE .ROUTE ; Start 12/23/18 at 07:45; Stop 12/23/18 at 07:46; Status DC Fentanyl Citrate (Fentanyl 2ml Vial) 100 mcg STK-MED ONCE .ROUTE ; Start 12/23/18 at 08:24; Stop 12/23/18 at 08:24; Status DC Labetalol HCl (Normodyne Iv Push) 10 mg 1X ONCE IVP ; Start 12/23/18 at 08:30; Stop 12/23/18 at 08:31; Status DC Phenylephrine HCl (Cheko-Synephrine Inj) 10 mg STK-MED ONCE .ROUTE ; Start 12/23/18 at 08:48; Stop 12/23/18 at 08:48; Status DC Iohexol (Omnipaque 300 Mg/ml) 50 ml STK-MED ONCE .ROUTE Last administered on 12/23/18at 08:33; Start 12/23/18 at 09:05; Stop 12/23/18 at 09:05; Status DC Hydrocortisone Sodium Succinate (Solu-CORTEF) 100 mg STK-MED ONCE .ROUTE ; Start 12/23/18 at 09:06; Stop 12/23/18 at 09:06; Status DC Dexamethasone Sodium Phosphate (Decadron) 4 mg STK-MED ONCE .ROUTE ; Start 12/23/18 at 09:06; Stop 12/23/18 at 09:06; Status DC Ondansetron HCl (Zofran) 4 mg STK-MED ONCE .ROUTE ; Start 12/23/18 at 09:06; Stop 12/23/18 at 09:06; Status DC Famotidine (Pepcid Vial) 20 mg STK-MED ONCE .ROUTE ; Start 12/23/18 at 09:06; Stop 12/23/18 at 09:07; Status DC Neostigmine Methylsulfate (Neostigmine Methylsulfate) 5 mg STK-MED ONCE .ROUTE ; Start 12/23/18 at 09:10; Stop 12/23/18 at 09:10; Status DC Glycopyrrolate (Robinul) 1 mg STK-MED ONCE .ROUTE ; Start 12/23/18 at 09:10; Stop 12/23/18 at 09:11; Status DC Heparin Sodium (Porcine) (Heparin Sodium) 10,000 unit STK-MED ONCE .ROUTE ; Start 12/23/18 at 09:23; Stop 12/23/18 at 09:23; Status DC Iohexol (Omnipaque 300 Mg/ml) 50 ml STK-MED ONCE .ROUTE Last administered on 12/23/18at 08:33; Start 12/23/18 at 09:28; Stop 12/23/18 at 09:28; Status DC Sevoflurane (Ultane) 90 ml STK-MED ONCE IH ; Start 12/23/18 at 09:44; Stop 12/23/18 at 09:44; Status DC Hydrocortisone Sodium Succinate (Solu-CORTEF) 100 mg 1X ONCE IV ; Start 12/23/18 at 11:00; Stop 12/23/18 at 11:15; Status DC Labetalol HCl (Normodyne Iv Push) 5 mg PRN Q10MIN PRN IVP HYPERTENSION Last administered on 12/23/18at 11:24; Start 12/23/18 at 11:30 Potassium Chloride/Dextrose/ Sod Cl 1,000 ml @ 125 mls/hr Q8H IV Last administered on 12/24/18at 08:24; Start 12/23/18 at 12:00 Active Scripts Active Reported Losartan Potassium 100 Mg Tablet 100 Mg PO DAILY Multi-Vitamin Daily (Multivitamin) 1 Each Tablet 1 Tab PO DAILY 30 Days Coumadin (Warfarin Sodium) 4 Mg Tablet 3.5 Mg PO DAILY Atorvastatin Calcium 20 Mg Tablet 1 Tab PO DAILY Toprol Xl (Metoprolol Succinate) 50 Mg Tab.er.24h 25 Mg PO DAILY Amlodipine Besylate 10 Mg Tablet 10 Mg PO DAILY Uloric (Febuxostat) 40 Mg Tablet 1 Tab PO DAILY Detrol La (Tolterodine Tartrate) 4 Mg Cap.er.24h 1 Cap PO DAILY Vitals/I & O Vital Sign - Last 24 Hours 12/23/18 12/23/18 12/23/18 12/23/18 10: 10: 10:40 10:55 Temp 97.5 97.5 Pulse 110 130 120 Resp 20 20 20 B/P (MAP) 117/66 170/90 157/100 Pulse Ox 98 98 98 O2 Delivery Mask Room Air Simple Mask Simple Mask O2 Flow Rate 10 10 10 10 12/23/18 12/23/18 12/23/18 12/23/18 11:10 11:24 11:25 11:35 Pulse 150 150 150 103 Resp 20 20 20 B/P (MAP) 176/81 176/81 156/81 97/55 Pulse Ox 85 94 97 O2 Delivery Nasal Cannula Simple Mask Simple Mask O2 Flow Rate 2 10 10 12/23/18 12/23/18 12/23/18 12/23/18 11:45 11:45 12:30 12:45 Temp 98.2 98.9 98.2 98.9 Pulse 98 90 94 Resp 20 20 B/P (MAP) 102/51 133/70 (91) 141/70 (93) Pulse Ox 97 96 O2 Delivery Nasal Cannula Nasal Cannula Room Air O2 Flow Rate 4 4 12/23/18 12/23/18 12/23/18 12/23/18 13:00 13:15 13:45 14:15 Pulse 100 100 100 100 B/P (MAP) 148/73 (98) 164/89 (114) 159/85 (109) 161/89 (113) 12/23/18 12/23/18 12/23/18 12/23/18 15:00 15:15 16:15 19:50 Temp 96.6 97.0 96.6 97.0 Pulse 79 92 92 96 Resp 20 18 B/P (MAP) 150/83 (105) 139/72 (94) 138/69 (92) 165/77 (106) Pulse Ox 96 100 O2 Delivery Room Air Nasal Cannula O2 Flow Rate 4.0 12/23/18 12/23/18 12/23/18 12/23/18 20:00 22:01 22:17 22:30 Temp 97.5 97.5 Pulse 88 Resp 18 18 20 B/P (MAP) 137/65 (89) Pulse Ox 96 100 100 O2 Delivery Nasal Cannula Nasal Cannula Nasal Cannula Nasal Cannula O2 Flow Rate 4.0 4.0 4.0 4.0 12/24/18 12/24/18 03:00 07:00 Temp 97.8 97.4 97.8 97.4 Pulse 93 92 Resp 20 18 B/P (MAP) 150/77 (101) 151/68 (95) Pulse Ox 97 100 O2 Delivery Nasal Cannula Room Air O2 Flow Rate 4.0 Intake and Output 12/23/18 12/23/18 12/24/18 15:00 23:00 07:00 Intake Total 100 ml 50 ml 1180 ml Output Total 300 ml 350 ml 425 ml Balance -200 ml -300 ml 755 ml LAURA CROOKS MD Dec 24, 2018 09:57
--- NOTE | 2018-12-24 10:12 | PDOC ---
SURGICAL PROGRESS NOTE Subjective leg feels better Vital Signs Vital Signs Date Time Temp Pulse Resp B/P (MAP) Pulse Ox O2 Delivery O2 Flow Rate FiO2 12/24/18 07:00 97.4 92 18 151/68 (95) 100 Room Air 97.4 12/24/18 03:00 4.0 I&O Intake and Output 12/24/18 07:00 Intake Total 1330 ml Output Total 1075 ml Balance 255 ml Intake Oral 0 ml IV Total 1330 ml Output Urine Total 975 ml Estimated Blood Loss 100 ml General: Alert, Oriented X3, Cooperative, No acute distress Extremities: Normal pulses, Other (left groin dressing intact) Labs Laboratory Tests Test 12/22/18 11:51 12/22/18 23:42 12/23/18 06:46 12/23/18 10:59 Glucose (Fingerstick) 143 mg/dL (70-99) 130 mg/dL (70-99) 111 mg/dL (70-99) White Blood Count 16.3 x10^3/uL (4.0-11.0) Red Blood Count 3.98 x10^6/uL (3.50-5.40) Hemoglobin 12.2 g/dL (12.0-15.5) Hematocrit 37.6 % (36.0-47.0) Mean Corpuscular Volume 95 fL (79-100) Mean Corpuscular Hemoglobin 31 pg (25-35) Mean Corpuscular Hemoglobin Concent 32 g/dL (31-37) Red Cell Distribution Width 13.8 % (11.5-14.5) Platelet Count 176 x10^3/uL (140-400) Neutrophils (%) (Auto) 86 % (31-73) Lymphocytes (%) (Auto) 8 % (24-48) Monocytes (%) (Auto) 6 % (0-9) Eosinophils (%) (Auto) 0 % (0-3) Basophils (%) (Auto) 0 % (0-3) Neutrophils # (Auto) 14.0 x10^3/uL (1.8-7.7) Lymphocytes # (Auto) 1.2 x10^3/uL (1.0-4.8) Monocytes # (Auto) 1.0 x10^3/uL (0.0-1.1) Eosinophils # (Auto) 0.0 x10^3/uL (0.0-0.7) Basophils # (Auto) 0.0 x10^3/uL (0.0-0.2) Prothrombin Time 16.1 SEC (11.7-14.0) Prothromb Time International Ratio 1.3 (0.8-1.1) Activated Partial Thromboplast Time > 150 SEC (24-38) Heparin Anti-Xa Act, Unfractionated > 1.10 IU/mL (0.30-0.70) Sodium Level 138 mmol/L (136-145) Potassium Level 3.8 mmol/L (3.5-5.1) Chloride Level 104 mmol/L (98-107) Carbon Dioxide Level 24 mmol/L (21-32) Anion Gap 10 (6-14) Blood Urea Nitrogen 36 mg/dL (7-20) Creatinine 1.8 mg/dL (0.6-1.0) Estimated GFR (Cockcroft-Gault) 32.7 Glucose Level 149 mg/dL (70-99) Calcium Level 8.3 mg/dL (8.5-10.1) Test 12/23/18 17:07 12/23/18 20:00 12/24/18 03:30 Glucose (Fingerstick) 118 mg/dL (70-99) Heparin Anti-Xa Act, Unfractionated 0.88 IU/mL (0.30-0.70) 0.57 IU/mL (0.30-0.70) White Blood Count 12.8 x10^3/uL (4.0-11.0) Red Blood Count 3.68 x10^6/uL (3.50-5.40) Hemoglobin 11.1 g/dL (12.0-15.5) Hematocrit 35.3 % (36.0-47.0) Mean Corpuscular Volume 96 fL (79-100) Mean Corpuscular Hemoglobin 30 pg (25-35) Mean Corpuscular Hemoglobin Concent 32 g/dL (31-37) Red Cell Distribution Width 14.2 % (11.5-14.5) Platelet Count 174 x10^3/uL (140-400) Neutrophils (%) (Auto) 87 % (31-73) Lymphocytes (%) (Auto) 4 % (24-48) Monocytes (%) (Auto) 8 % (0-9) Eosinophils (%) (Auto) 0 % (0-3) Basophils (%) (Auto) 0 % (0-3) Neutrophils # (Auto) 11.2 x10^3/uL (1.8-7.7) Lymphocytes # (Auto) 0.6 x10^3/uL (1.0-4.8) Monocytes # (Auto) 1.1 x10^3/uL (0.0-1.1) Eosinophils # (Auto) 0.0 x10^3/uL (0.0-0.7) Basophils # (Auto) 0.0 x10^3/uL (0.0-0.2) Sodium Level 130 mmol/L (136-145) Potassium Level 4.1 mmol/L (3.5-5.1) Chloride Level 106 mmol/L (98-107) Carbon Dioxide Level 15 mmol/L (21-32) Anion Gap 9 (6-14) Blood Urea Nitrogen 39 mg/dL (7-20) Creatinine 1.9 mg/dL (0.6-1.0) Estimated GFR (Cockcroft-Gault) 30.7 Glucose Level 129 mg/dL (70-99) Calcium Level 7.9 mg/dL (8.5-10.1) Laboratory Tests Test 12/23/18 10:59 12/23/18 17:07 12/23/18 20:00 12/24/18 03:30 White Blood Count 16.3 x10^3/uL (4.0-11.0) 12.8 x10^3/uL (4.0-11.0) Red Blood Count 3.98 x10^6/uL (3.50-5.40) 3.68 x10^6/uL (3.50-5.40) Hemoglobin 12.2 g/dL (12.0-15.5) 11.1 g/dL (12.0-15.5) Hematocrit 37.6 % (36.0-47.0) 35.3 % (36.0-47.0) Mean Corpuscular Volume 95 fL (79-100) 96 fL (79-100) Mean Corpuscular Hemoglobin 31 pg (25-35) 30 pg (25-35) Mean Corpuscular Hemoglobin Concent 32 g/dL (31-37) 32 g/dL (31-37) Red Cell Distribution Width 13.8 % (11.5-14.5) 14.2 % (11.5-14.5) Platelet Count 176 x10^3/uL (140-400) 174 x10^3/uL (140-400) Neutrophils (%) (Auto) 86 % (31-73) 87 % (31-73) Lymphocytes (%) (Auto) 8 % (24-48) 4 % (24-48) Monocytes (%) (Auto) 6 % (0-9) 8 % (0-9) Eosinophils (%) (Auto) 0 % (0-3) 0 % (0-3) Basophils (%) (Auto) 0 % (0-3) 0 % (0-3) Neutrophils # (Auto) 14.0 x10^3/uL (1.8-7.7) 11.2 x10^3/uL (1.8-7.7) Lymphocytes # (Auto) 1.2 x10^3/uL (1.0-4.8) 0.6 x10^3/uL (1.0-4.8) Monocytes # (Auto) 1.0 x10^3/uL (0.0-1.1) 1.1 x10^3/uL (0.0-1.1) Eosinophils # (Auto) 0.0 x10^3/uL (0.0-0.7) 0.0 x10^3/uL (0.0-0.7) Basophils # (Auto) 0.0 x10^3/uL (0.0-0.2) 0.0 x10^3/uL (0.0-0.2) Prothrombin Time 16.1 SEC (11.7-14.0) Prothromb Time International Ratio 1.3 (0.8-1.1) Activated Partial Thromboplast Time > 150 SEC (24-38) Heparin Anti-Xa Act, Unfractionated > 1.10 IU/mL (0.30-0.70) 0.88 IU/mL (0.30-0.70) 0.57 IU/mL (0.30-0.70) Sodium Level 138 mmol/L (136-145) 130 mmol/L (136-145) Potassium Level 3.8 mmol/L (3.5-5.1) 4.1 mmol/L (3.5-5.1) Chloride Level 104 mmol/L (98-107) 106 mmol/L (98-107) Carbon Dioxide Level 24 mmol/L (21-32) 15 mmol/L (21-32) Anion Gap 10 (6-14) 9 (6-14) Blood Urea Nitrogen 36 mg/dL (7-20) 39 mg/dL (7-20) Creatinine 1.8 mg/dL (0.6-1.0) 1.9 mg/dL (0.6-1.0) Estimated GFR (Cockcroft-Gault) 32.7 30.7 Glucose Level 149 mg/dL (70-99) 129 mg/dL (70-99) Calcium Level 8.3 mg/dL (8.5-10.1) 7.9 mg/dL (8.5-10.1) Glucose (Fingerstick) 118 mg/dL (70-99) Problem List Problems Medical Problems: (1) Epigastric pain Status: Acute (2) Epigastric pain Status: Acute (3) Nausea Status: Acute (4) Nausea Status: Acute (5) Small bowel obstruction Status: Acute Assessment/Plan doing well s/p left femoral thrombectomy and left Iliac angioplasty and stent RETA HOYT MD Dec 24, 2018 10:12
--- NOTE | 2018-12-24 10:29 | RAD ---
EXAM: Abdomen, single view. HISTORY: Nasogastric tube placement. COMPARISON: 12/20/2018 FINDINGS: A frontal view of the abdomen is obtained. There is a nasogastric tube looped within the proximal stomach. There are distended air-filled bowel within the abdomen. There is gas within the rectum. There are surgical anchors within the pubic bones. There is degenerative change involving the spine. IMPRESSION: 1. Nasogastric tube within the proximal stomach. 2. Distended air-filled loops of bowel within the abdomen. This is similar compared to the prior study. Correlate for ileus or partial obstruction. Electronically signed by: Temitope Whipple MD (12/24/2018 10:26 AM) [facility]
--- NOTE | 2018-12-24 10:33 | PDOC ---
SURGICAL PROGRESS NOTE Subjective Comtinues to do sell from GS standpoint. Abd soft and non tender. Will clamp tube before removing it as there was much trouble getting it down. If she can not tolerateWillse how she does the next few days. the tube out she will need surgery. Vital Signs Vital Signs Date Time Temp Pulse Resp B/P (MAP) Pulse Ox O2 Delivery O2 Flow Rate FiO2 12/24/18 07:00 97.4 92 18 151/68 (95) 100 Room Air 97.4 12/24/18 03:00 4.0 I&O Intake and Output 12/24/18 07:00 Intake Total 1330 ml Output Total 1075 ml Balance 255 ml Intake Oral 0 ml IV Total 1330 ml Output Urine Total 975 ml Estimated Blood Loss 100 ml Labs Laboratory Tests Test 12/22/18 11:51 12/22/18 23:42 12/23/18 06:46 12/23/18 10:59 Glucose (Fingerstick) 143 mg/dL (70-99) 130 mg/dL (70-99) 111 mg/dL (70-99) White Blood Count 16.3 x10^3/uL (4.0-11.0) Red Blood Count 3.98 x10^6/uL (3.50-5.40) Hemoglobin 12.2 g/dL (12.0-15.5) Hematocrit 37.6 % (36.0-47.0) Mean Corpuscular Volume 95 fL (79-100) Mean Corpuscular Hemoglobin 31 pg (25-35) Mean Corpuscular Hemoglobin Concent 32 g/dL (31-37) Red Cell Distribution Width 13.8 % (11.5-14.5) Platelet Count 176 x10^3/uL (140-400) Neutrophils (%) (Auto) 86 % (31-73) Lymphocytes (%) (Auto) 8 % (24-48) Monocytes (%) (Auto) 6 % (0-9) Eosinophils (%) (Auto) 0 % (0-3) Basophils (%) (Auto) 0 % (0-3) Neutrophils # (Auto) 14.0 x10^3/uL (1.8-7.7) Lymphocytes # (Auto) 1.2 x10^3/uL (1.0-4.8) Monocytes # (Auto) 1.0 x10^3/uL (0.0-1.1) Eosinophils # (Auto) 0.0 x10^3/uL (0.0-0.7) Basophils # (Auto) 0.0 x10^3/uL (0.0-0.2) Prothrombin Time 16.1 SEC (11.7-14.0) Prothromb Time International Ratio 1.3 (0.8-1.1) Activated Partial Thromboplast Time > 150 SEC (24-38) Heparin Anti-Xa Act, Unfractionated > 1.10 IU/mL (0.30-0.70) Sodium Level 138 mmol/L (136-145) Potassium Level 3.8 mmol/L (3.5-5.1) Chloride Level 104 mmol/L (98-107) Carbon Dioxide Level 24 mmol/L (21-32) Anion Gap 10 (6-14) Blood Urea Nitrogen 36 mg/dL (7-20) Creatinine 1.8 mg/dL (0.6-1.0) Estimated GFR (Cockcroft-Gault) 32.7 Glucose Level 149 mg/dL (70-99) Calcium Level 8.3 mg/dL (8.5-10.1) Test 12/23/18 17:07 12/23/18 20:00 12/24/18 03:30 Glucose (Fingerstick) 118 mg/dL (70-99) Heparin Anti-Xa Act, Unfractionated 0.88 IU/mL (0.30-0.70) 0.57 IU/mL (0.30-0.70) White Blood Count 12.8 x10^3/uL (4.0-11.0) Red Blood Count 3.68 x10^6/uL (3.50-5.40) Hemoglobin 11.1 g/dL (12.0-15.5) Hematocrit 35.3 % (36.0-47.0) Mean Corpuscular Volume 96 fL (79-100) Mean Corpuscular Hemoglobin 30 pg (25-35) Mean Corpuscular Hemoglobin Concent 32 g/dL (31-37) Red Cell Distribution Width 14.2 % (11.5-14.5) Platelet Count 174 x10^3/uL (140-400) Neutrophils (%) (Auto) 87 % (31-73) Lymphocytes (%) (Auto) 4 % (24-48) Monocytes (%) (Auto) 8 % (0-9) Eosinophils (%) (Auto) 0 % (0-3) Basophils (%) (Auto) 0 % (0-3) Neutrophils # (Auto) 11.2 x10^3/uL (1.8-7.7) Lymphocytes # (Auto) 0.6 x10^3/uL (1.0-4.8) Monocytes # (Auto) 1.1 x10^3/uL (0.0-1.1) Eosinophils # (Auto) 0.0 x10^3/uL (0.0-0.7) Basophils # (Auto) 0.0 x10^3/uL (0.0-0.2) Sodium Level 130 mmol/L (136-145) Potassium Level 4.1 mmol/L (3.5-5.1) Chloride Level 106 mmol/L (98-107) Carbon Dioxide Level 15 mmol/L (21-32) Anion Gap 9 (6-14) Blood Urea Nitrogen 39 mg/dL (7-20) Creatinine 1.9 mg/dL (0.6-1.0) Estimated GFR (Cockcroft-Gault) 30.7 Glucose Level 129 mg/dL (70-99) Calcium Level 7.9 mg/dL (8.5-10.1) Laboratory Tests Test 12/23/18 10:59 12/23/18 17:07 12/23/18 20:00 12/24/18 03:30 White Blood Count 16.3 x10^3/uL (4.0-11.0) 12.8 x10^3/uL (4.0-11.0) Red Blood Count 3.98 x10^6/uL (3.50-5.40) 3.68 x10^6/uL (3.50-5.40) Hemoglobin 12.2 g/dL (12.0-15.5) 11.1 g/dL (12.0-15.5) Hematocrit 37.6 % (36.0-47.0) 35.3 % (36.0-47.0) Mean Corpuscular Volume 95 fL (79-100) 96 fL (79-100) Mean Corpuscular Hemoglobin 31 pg (25-35) 30 pg (25-35) Mean Corpuscular Hemoglobin Concent 32 g/dL (31-37) 32 g/dL (31-37) Red Cell Distribution Width 13.8 % (11.5-14.5) 14.2 % (11.5-14.5) Platelet Count 176 x10^3/uL (140-400) 174 x10^3/uL (140-400) Neutrophils (%) (Auto) 86 % (31-73) 87 % (31-73) Lymphocytes (%) (Auto) 8 % (24-48) 4 % (24-48) Monocytes (%) (Auto) 6 % (0-9) 8 % (0-9) Eosinophils (%) (Auto) 0 % (0-3) 0 % (0-3) Basophils (%) (Auto) 0 % (0-3) 0 % (0-3) Neutrophils # (Auto) 14.0 x10^3/uL (1.8-7.7) 11.2 x10^3/uL (1.8-7.7) Lymphocytes # (Auto) 1.2 x10^3/uL (1.0-4.8) 0.6 x10^3/uL (1.0-4.8) Monocytes # (Auto) 1.0 x10^3/uL (0.0-1.1) 1.1 x10^3/uL (0.0-1.1) Eosinophils # (Auto) 0.0 x10^3/uL (0.0-0.7) 0.0 x10^3/uL (0.0-0.7) Basophils # (Auto) 0.0 x10^3/uL (0.0-0.2) 0.0 x10^3/uL (0.0-0.2) Prothrombin Time 16.1 SEC (11.7-14.0) Prothromb Time International Ratio 1.3 (0.8-1.1) Activated Partial Thromboplast Time > 150 SEC (24-38) Heparin Anti-Xa Act, Unfractionated > 1.10 IU/mL (0.30-0.70) 0.88 IU/mL (0.30-0.70) 0.57 IU/mL (0.30-0.70) Sodium Level 138 mmol/L (136-145) 130 mmol/L (136-145) Potassium Level 3.8 mmol/L (3.5-5.1) 4.1 mmol/L (3.5-5.1) Chloride Level 104 mmol/L (98-107) 106 mmol/L (98-107) Carbon Dioxide Level 24 mmol/L (21-32) 15 mmol/L (21-32) Anion Gap 10 (6-14) 9 (6-14) Blood Urea Nitrogen 36 mg/dL (7-20) 39 mg/dL (7-20) Creatinine 1.8 mg/dL (0.6-1.0) 1.9 mg/dL (0.6-1.0) Estimated GFR (Cockcroft-Gault) 32.7 30.7 Glucose Level 149 mg/dL (70-99) 129 mg/dL (70-99) Calcium Level 8.3 mg/dL (8.5-10.1) 7.9 mg/dL (8.5-10.1) Glucose (Fingerstick) 118 mg/dL (70-99) Problem List Problems Medical Problems: (1) Epigastric pain Status: Acute (2) Epigastric pain Status: Acute (3) Nausea Status: Acute (4) Nausea Status: Acute (5) Small bowel obstruction Status: Acute JASMYN MYERS MD Dec 24, 2018 10:33
[2018-12-24 11:00] VITALS: BP 133/62
[2018-12-24] MEDS: POTASSIUM CL 20MEQ D5-0.9%NACL 1,000 ML IV SCH ×2 (12:38→22:37)
--- NOTE | 2018-12-24 12:39 | PDOC ---
GI PROGRESS NOTES Date Date/Time DATE: 12/24/18 TIME: 12:38 Subjective Subjective up in chair- feeling better- no flatus or BM today Objective Vitals Vital Signs Date Time Temp Pulse Resp B/P (MAP) Pulse Ox O2 Delivery O2 Flow Rate FiO2 12/24/18 11:00 97.7 83 19 133/62 (85) 99 Room Air 97.7 12/24/18 07:00 97.4 92 18 151/68 (95) 100 Room Air 97.4 12/24/18 03:00 97.8 93 20 150/77 (101) 97 Nasal Cannula 4.0 97.8 12/23/18 22:30 20 100 Nasal Cannula 4.0 12/23/18 22:17 97.5 88 18 137/65 (89) 100 Nasal Cannula 4.0 97.5 12/23/18 22:01 18 96 Nasal Cannula 4.0 12/23/18 20:00 Nasal Cannula 4.0 12/23/18 19:50 97.0 96 18 165/77 (106) 100 Nasal Cannula 4.0 97.0 12/23/18 16:15 92 138/69 (92) 12/23/18 15:15 92 139/72 (94) 12/23/18 15:00 96.6 79 20 150/83 (105) 96 Room Air 96.6 12/23/18 14:15 100 161/89 (113) 12/23/18 13:45 100 159/85 (109) 12/23/18 13:15 100 164/89 (114) 12/23/18 13:00 100 148/73 (98) 12/23/18 12:45 94 141/70 (93) Labs Labs Laboratory Tests Test 12/23/18 17:07 12/23/18 20:00 12/24/18 03:30 12/24/18 09:31 Glucose (Fingerstick) 118 mg/dL (70-99) Heparin Anti-Xa Act, Unfractionated 0.88 IU/mL (0.30-0.70) 0.57 IU/mL (0.30-0.70) 0.43 IU/mL (0.30-0.70) White Blood Count 12.8 x10^3/uL (4.0-11.0) Red Blood Count 3.68 x10^6/uL (3.50-5.40) Hemoglobin 11.1 g/dL (12.0-15.5) Hematocrit 35.3 % (36.0-47.0) Mean Corpuscular Volume 96 fL (79-100) Mean Corpuscular Hemoglobin 30 pg (25-35) Mean Corpuscular Hemoglobin Concent 32 g/dL (31-37) Red Cell Distribution Width 14.2 % (11.5-14.5) Platelet Count 174 x10^3/uL (140-400) Neutrophils (%) (Auto) 87 % (31-73) Lymphocytes (%) (Auto) 4 % (24-48) Monocytes (%) (Auto) 8 % (0-9) Eosinophils (%) (Auto) 0 % (0-3) Basophils (%) (Auto) 0 % (0-3) Neutrophils # (Auto) 11.2 x10^3/uL (1.8-7.7) Lymphocytes # (Auto) 0.6 x10^3/uL (1.0-4.8) Monocytes # (Auto) 1.1 x10^3/uL (0.0-1.1) Eosinophils # (Auto) 0.0 x10^3/uL (0.0-0.7) Basophils # (Auto) 0.0 x10^3/uL (0.0-0.2) Sodium Level 130 mmol/L (136-145) Potassium Level 4.1 mmol/L (3.5-5.1) Chloride Level 106 mmol/L (98-107) Carbon Dioxide Level 15 mmol/L (21-32) Anion Gap 9 (6-14) Blood Urea Nitrogen 39 mg/dL (7-20) Creatinine 1.9 mg/dL (0.6-1.0) Estimated GFR (Cockcroft-Gault) 30.7 Glucose Level 129 mg/dL (70-99) Calcium Level 7.9 mg/dL (8.5-10.1) Test 12/24/18 11:58 Glucose (Fingerstick) 108 mg/dL (70-99) Physical Exam Physical Exam Awake, mildly confused Chest clear Abdomen: Soft, nontender, few if any bowel sounds appreciated but not particularly distended Assessment Assessment Persistent small bowel obstruction Ischemic left leg requiring acute popliteal thromboembolectomy with Dr. Davidson Plan Plan defer to surgery on NGT and liquid intake PRACHI YEN MD Dec 24, 2018 12:39
--- NOTE | 2018-12-24 13:05 | PDOC ---
PROGRESS NOTES Subjective Subjective SEEN IN FOLLOW UP OF ARF/CKD. S/P SURGERY FOR ARTERIAL THROMBOSIS Objective Objective Vital Signs Date Time Temp Pulse Resp B/P (MAP) Pulse Ox O2 Delivery O2 Flow Rate FiO2 12/24/18 11:00 97.7 83 19 133/62 (85) 99 Room Air 97.7 12/24/18 03:00 4.0 Intake and Output 12/24/18 07:00 Intake Total 1330 ml Output Total 1075 ml Balance 255 ml Intake Oral 0 ml IV Total 1330 ml Output Urine Total 975 ml Estimated Blood Loss 100 ml Physical Exam Abdomen: Other (POST OP WITH NG TUBE) Heart: Regular rate, Normal S1, Normal S2, No murmurs, Gallops Extremities: No clubbing, No cyanosis, No edema, Normal pulses, No tenderness/swelling General: Alert, Oriented X3, Cooperative, No acute distress Lungs: Clear to auscultation, Normal air movement Psych/Mental Status: Mental status NL, Mood NL Diagnosis RENAL FAILURE: Acute (Acute tubular necrosis), Chronic (CKD stage III) Assessment Assessment Problems Medical Problems: (1) Epigastric pain Status: Acute (2) Epigastric pain Status: Acute (3) Nausea Status: Acute (4) Nausea Status: Acute (5) Small bowel obstruction Status: Acute Plan Plan of Care RENAL FUNCTION IS STABLE. CONT POST OP CARE AND MAINTAIN FLUID BALANCE Comment Review of Relevant I have reviewed the following items rubia (where applicable) has been applied. Labs Laboratory Tests Test 12/22/18 23:42 12/23/18 06:46 12/23/18 10:59 12/23/18 17:07 Glucose (Fingerstick) 130 mg/dL (70-99) 111 mg/dL (70-99) 118 mg/dL (70-99) White Blood Count 16.3 x10^3/uL (4.0-11.0) Red Blood Count 3.98 x10^6/uL (3.50-5.40) Hemoglobin 12.2 g/dL (12.0-15.5) Hematocrit 37.6 % (36.0-47.0) Mean Corpuscular Volume 95 fL (79-100) Mean Corpuscular Hemoglobin 31 pg (25-35) Mean Corpuscular Hemoglobin Concent 32 g/dL (31-37) Red Cell Distribution Width 13.8 % (11.5-14.5) Platelet Count 176 x10^3/uL (140-400) Neutrophils (%) (Auto) 86 % (31-73) Lymphocytes (%) (Auto) 8 % (24-48) Monocytes (%) (Auto) 6 % (0-9) Eosinophils (%) (Auto) 0 % (0-3) Basophils (%) (Auto) 0 % (0-3) Neutrophils # (Auto) 14.0 x10^3/uL (1.8-7.7) Lymphocytes # (Auto) 1.2 x10^3/uL (1.0-4.8) Monocytes # (Auto) 1.0 x10^3/uL (0.0-1.1) Eosinophils # (Auto) 0.0 x10^3/uL (0.0-0.7) Basophils # (Auto) 0.0 x10^3/uL (0.0-0.2) Prothrombin Time 16.1 SEC (11.7-14.0) Prothromb Time International Ratio 1.3 (0.8-1.1) Activated Partial Thromboplast Time > 150 SEC (24-38) Heparin Anti-Xa Act, Unfractionated > 1.10 IU/mL (0.30-0.70) Sodium Level 138 mmol/L (136-145) Potassium Level 3.8 mmol/L (3.5-5.1) Chloride Level 104 mmol/L (98-107) Carbon Dioxide Level 24 mmol/L (21-32) Anion Gap 10 (6-14) Blood Urea Nitrogen 36 mg/dL (7-20) Creatinine 1.8 mg/dL (0.6-1.0) Estimated GFR (Cockcroft-Gault) 32.7 Glucose Level 149 mg/dL (70-99) Calcium Level 8.3 mg/dL (8.5-10.1) Test 12/23/18 20:00 12/24/18 03:30 12/24/18 09:31 12/24/18 11:58 Heparin Anti-Xa Act, Unfractionated 0.88 IU/mL (0.30-0.70) 0.57 IU/mL (0.30-0.70) 0.43 IU/mL (0.30-0.70) White Blood Count 12.8 x10^3/uL (4.0-11.0) Red Blood Count 3.68 x10^6/uL (3.50-5.40) Hemoglobin 11.1 g/dL (12.0-15.5) Hematocrit 35.3 % (36.0-47.0) Mean Corpuscular Volume 96 fL (79-100) Mean Corpuscular Hemoglobin 30 pg (25-35) Mean Corpuscular Hemoglobin Concent 32 g/dL (31-37) Red Cell Distribution Width 14.2 % (11.5-14.5) Platelet Count 174 x10^3/uL (140-400) Neutrophils (%) (Auto) 87 % (31-73) Lymphocytes (%) (Auto) 4 % (24-48) Monocytes (%) (Auto) 8 % (0-9) Eosinophils (%) (Auto) 0 % (0-3) Basophils (%) (Auto) 0 % (0-3) Neutrophils # (Auto) 11.2 x10^3/uL (1.8-7.7) Lymphocytes # (Auto) 0.6 x10^3/uL (1.0-4.8) Monocytes # (Auto) 1.1 x10^3/uL (0.0-1.1) Eosinophils # (Auto) 0.0 x10^3/uL (0.0-0.7) Basophils # (Auto) 0.0 x10^3/uL (0.0-0.2) Sodium Level 130 mmol/L (136-145) Potassium Level 4.1 mmol/L (3.5-5.1) Chloride Level 106 mmol/L (98-107) Carbon Dioxide Level 15 mmol/L (21-32) Anion Gap 9 (6-14) Blood Urea Nitrogen 39 mg/dL (7-20) Creatinine 1.9 mg/dL (0.6-1.0) Estimated GFR (Cockcroft-Gault) 30.7 Glucose Level 129 mg/dL (70-99) Calcium Level 7.9 mg/dL (8.5-10.1) Glucose (Fingerstick) 108 mg/dL (70-99) Laboratory Tests Test 12/23/18 17:07 12/23/18 20:00 12/24/18 03:30 12/24/18 09:31 Glucose (Fingerstick) 118 mg/dL (70-99) Heparin Anti-Xa Act, Unfractionated 0.88 IU/mL (0.30-0.70) 0.57 IU/mL (0.30-0.70) 0.43 IU/mL (0.30-0.70) White Blood Count 12.8 x10^3/uL (4.0-11.0) Red Blood Count 3.68 x10^6/uL (3.50-5.40) Hemoglobin 11.1 g/dL (12.0-15.5) Hematocrit 35.3 % (36.0-47.0) Mean Corpuscular Volume 96 fL (79-100) Mean Corpuscular Hemoglobin 30 pg (25-35) Mean Corpuscular Hemoglobin Concent 32 g/dL (31-37) Red Cell Distribution Width 14.2 % (11.5-14.5) Platelet Count 174 x10^3/uL (140-400) Neutrophils (%) (Auto) 87 % (31-73) Lymphocytes (%) (Auto) 4 % (24-48) Monocytes (%) (Auto) 8 % (0-9) Eosinophils (%) (Auto) 0 % (0-3) Basophils (%) (Auto) 0 % (0-3) Neutrophils # (Auto) 11.2 x10^3/uL (1.8-7.7) Lymphocytes # (Auto) 0.6 x10^3/uL (1.0-4.8) Monocytes # (Auto) 1.1 x10^3/uL (0.0-1.1) Eosinophils # (Auto) 0.0 x10^3/uL (0.0-0.7) Basophils # (Auto) 0.0 x10^3/uL (0.0-0.2) Sodium Level 130 mmol/L (136-145) Potassium Level 4.1 mmol/L (3.5-5.1) Chloride Level 106 mmol/L (98-107) Carbon Dioxide Level 15 mmol/L (21-32) Anion Gap 9 (6-14) Blood Urea Nitrogen 39 mg/dL (7-20) Creatinine 1.9 mg/dL (0.6-1.0) Estimated GFR (Cockcroft-Gault) 30.7 Glucose Level 129 mg/dL (70-99) Calcium Level 7.9 mg/dL (8.5-10.1) Test 12/24/18 11:58 Glucose (Fingerstick) 108 mg/dL (70-99) Microbiology 12/18/18 Urine Culture - Final, Complete 12/18/18 Urine Culture Result 1 (ALEJANDRINA) - Final, Complete Medications Current Medications Ondansetron HCl (Zofran) 4 mg 1X ONCE IM ; Start 12/16/18 at 09:30; Stop 12/16/18 at 09:31; Status DC Fentanyl Citrate (Fentanyl 2ml Vial) 75 mcg 1X ONCE IVP Last administered on 12/16/18at 09:46; Start 12/16/18 at 09:45; Stop 12/16/18 at 09:46; Status DC Ondansetron HCl (Zofran) 4 mg 1X ONCE IVP Last administered on 12/16/18at 09:51; Start 12/16/18 at 10:00; Stop 12/16/18 at 10:01; Status DC Sodium Chloride 1,000 ml @ 1,000 mls/hr 1X ONCE IV Last administered on 12/16/18at 10:40; Start 12/16/18 at 10:15; Stop 12/16/18 at 11:14; Status DC Clonidine HCl (Catapres) 0.1 mg 1X ONCE PO Last administered on 12/16/18at 15:12; Start 12/16/18 at 14:15; Stop 12/16/18 at 14:16; Status DC Fentanyl Citrate (Fentanyl 2ml Vial) 75 mcg 1X ONCE IVP ; Start 12/16/18 at 15:15; Stop 12/16/18 at 15:16; Status DC Ondansetron HCl (Zofran) 4 mg PRN Q8HRS PRN IV NAUSEA/VOMITING; Start 12/16/18 at 15:15; Stop 12/16/18 at 17:10; Status DC Fentanyl Citrate (Fentanyl 2ml Vial) 50 mcg PRN Q1HR PRN IV PAIN Last administ ered on 12/17/18at 07:28; Start 12/16/18 at 15:15; Stop 12/17/18 at 15:14; Status DC Sodium Chloride 1,000 ml @ 125 mls/hr Q8H IV ; Start 12/16/18 at 15:10; Stop 12/16/18 at 17:26; Status DC Acetaminophen (Tylenol) 650 mg PRN Q4HRS PRN PO FEVER; Start 12/16/18 at 15:15; Stop 12/17/18 at 15:14; Status DC Potassium Chloride/Dextrose/ Sod Cl 1,000 ml @ 100 mls/hr Q10H IV Last administered on 12/18/18at 01:27; Start 12/16/18 at 17:00; Stop 12/18/18 at 10:34; Status DC Ondansetron HCl (Zofran) 4 mg PRN Q6HRS PRN IVP NAUSEA/VOMITING Last administered on 12/18/18at 21:17; Start 12/16/18 at 17:00 Hydralazine HCl (Apresoline Inj) 10 mg PRN Q6HRS PRN IVP ELEVATED BP, SEE COMMENTS Last administered on 12/22/18at 03:07; Start 12/17/18 at 01:00 Enoxaparin Sodium (Lovenox 100mg Syringe) 100 mg DAILY SQ Last administered on 12/17/18at 12:49; Start 12/17/18 at 10:30; Stop 12/19/18 at 09:14; Status DC Info (Anti-Coagulation Monitoring By Pharmacy) 1 each PRN DAILY PRN MC SEE COMMENTS Last administered on 12/23/18at 15:35; Start 12/17/18 at 10:15 Pantoprazole Sodium (PROTONIX VIAL for IV PUSH) 40 mg DAILYAC IVP Last administered on 12/24/18at 08:26; Start 12/17/18 at 10:30 Acetaminophen (Tylenol Supp) 650 mg PRN Q6HRS PRN [place] HEADACHE / TEMP; Start 12/17/18 at 10:00 Fentanyl Citrate (Fentanyl 2ml Vial) 50 mcg PRN Q4HRS PRN IVP PAIN Last administered on 12/23/18at 22:01; Start 12/17/18 at 10:00 Insulin Human Lispro (HumaLOG) 0-6 UNITS BG 300-399... Q6HRS SQ ; Start 12/17/18 at 12:00; Stop 12/17/18 at 10:24; Status DC Ceftriaxone Sodium (Rocephin) 1 gm Q24H IVP Last administered on 12/21/18at 12:42; Start 12/18/18 at 11:00; Stop 12/22/18 at 10:07; Status DC Dextrose/Sodium Chloride 1,000 ml @ 150 mls/hr Q6H40M IV Last administered on 12/20/18at 03:00; Start 12/18/18 at 10:30; Stop 12/20/18 at 09:52; Status DC Bupivacaine HCl/ Epinephrine Bitart (Sensorcain-Epi 0.5%-1:615224 Mpf) 30 ml 1X ONCE INJ ; Start 12/18/18 at 15:00; Stop 12/18/18 at 15:01; Status Cancel Bupivacaine HCl/ Epinephrine Bitart (Sensorcain-Epi 0.5%-1:701614 Mpf) 30 ml 1X ONCE INJ Last administered on 12/19/18at 06:00; Start 12/19/18 at 06:00; Stop 12/19/18 at 06:01; Status DC Ondansetron HCl (Zofran) 4 mg PRN Q6HRS PRN IV NAUSEA/VOMITING; Start 12/19/18 at 07:00; Stop 12/20/18 at 06:59; Status DC Fentanyl Citrate (Fentanyl 2ml Vial) 25 mcg PRN Q5MIN PRN IV MILD PAIN 1-3; Start 12/19/18 at 07:00; Stop 12/20/18 at 06:59; Status DC Fentanyl Citrate (Fentanyl 2ml Vial) 50 mcg PRN Q5MIN PRN IV MODERATE TO SEVERE PAIN; Start 12/19/18 at 07:00; Stop 12/20/18 at 06:59; Status DC Morphine Sulfate (Morphine Sulfate) 1 mg PRN Q10MIN PRN IV SEVERE PAIN 7-10; Start 12/19/18 at 07:00; Stop 12/20/18 at 06:59; Status DC Ringer's Solution 1,000 ml @ 30 mls/hr Q24H IV ; Start 12/19/18 at 07:00; Stop 12/19/18 at 18:59; Status DC Lidocaine HCl (Xylocaine-Mpf 1% 2ml Vial) 2 ml PRN 1X PRN ID PRIOR TO IV START; Start 12/19/18 at 07:00; Stop 12/20/18 at 06:59; Status DC Hydromorphone HCl (Dilaudid) 0.5 mg PRN Q10MIN PRN IV SEV PAIN, Second choice; Start 12/19/18 at 07:00; Stop 12/20/18 at 06:59; Status DC Prochlorperazine Edisylate (Compazine) 5 mg PACU PRN PRN IV NAUSEA, MRX1; Start 12/19/18 at 07:00; Stop 12/20/18 at 06:59; Status DC Phytonadione 10 mg/Dextrose 51 ml @ 102 mls/hr 1X ONCE IV Last administered on 12/19/18at 10:37; Start 12/19/18 at 09:15; Stop 12/19/18 at 09:44; Status DC Potassium Chloride/Dextrose/ Sod Cl 1,000 ml @ 150 mls/hr Q6H40M IV Last administered on 12/21/18at 03:26; Start 12/20/18 at 11:00; Stop 12/21/18 at 11:06; Status DC Lidocaine HCl (Lidocaine Pf 2% Vial) 5 ml STK-MED ONCE .ROUTE ; Start 12/20/18 at 11:14; Stop 12/20/18 at 11:14; Status DC Neostigmine Methylsulfate (Bloxiverz) 10 mg STK-MED ONCE .ROUTE ; Start 12/20 at 11:16; Stop 12/20/18 at 11:17; Status DC Rocuronium [place] (Zemuron) 50 mg STK-MED ONCE .ROUTE ; Start 12/20/18 at 11 :17; Stop 12/20/18 at 11:17; Status DC Fentanyl Citrate (Fentanyl 2ml Vial) 100 mcg STK-MED ONCE .ROUTE ; Start 12/20/18 at 11:17; Stop 12/20/18 at 11:18; Status DC Midazolam HCl (Versed) 2 mg STK-MED ONCE .ROUTE ; Start 12/20/18 at 11:17; Stop 12/20/18 at 11:18; Status DC Glycopyrrolate (Robinul) 1 mg STK-MED ONCE .ROUTE ; Start 12/20/18 at 11:17; Stop 12/20/18 at 11:18; Status DC Succinylcholine Chloride (Anectine) 200 mg STK-MED ONCE .ROUTE ; Start 12/20/18 at 11:21; Stop 12/20/18 at 11:21; Status DC Diclofenac Sodium (Voltaren) 1 marilyn QID TP Last administered on 12/24/18at 12:39; Start 12/21/18 at 13:00 Dextrose/Sodium Chloride 1,000 ml @ 125 mls/hr Q8H IV Last administered on 12/23/18at 03:30; Start 12/21/18 at 11:15; Stop 12/23/18 at 11:59; Status DC Methylprednisolone Acetate (DEPO-Medrol 40MG VIAL) 40 mg 1X ONCE IM Last administered on 12/21/18at 12:00; Start 12/21/18 at 12:00; Stop 12/21/18 at 12:01; Status DC Bupivacaine HCl (Sensorcaine-Mpf 0.25%) 10 ml 1X ONCE IJ Last administered on 12/21/18at 12:00; Start 12/21/18 at 12:00; Stop 12/21/18 at 12:01; Status DC Piperacillin Sod/ Tazobactam Sod 3.375 gm/Sodium Chloride 50 ml @ 100 mls/hr Q6HRS IV Last administered on 12/24/18at 12:39; Start 12/22/18 at 12:00 Heparin Sodium/ Dextrose 500 ml @ 32 mls/min CONT PRN IV SEE PROTOCOL; Start 12/22/18 at 14:30; Stop 12/22/18 at 20:12; Status DC Heparin Sodium (Porcine) (Heparin Sodium) 3,050 unit PRN Q6HRS PRN IV FOR UFH LEVEL LESS THAN 0.2; Start 12/22/18 at 14:30; Stop 12/22/18 at 20:10; Status DC Heparin Sodium (Porcine) (Heparin Sodium) 1,550 unit PRN Q6HRS PRN IV FOR UFH LEVEL 0.2 - 0.29; Start 12/22/18 at 14:30; Stop 12/22/18 at 20:10; Status DC Heparin Sodium (Porcine) (Heparin Sodium) 5,000 unit Q8HRS SQ Last administered on 12/22/18at 22:11; Start 12/22/18 at 22:00; Stop 12/23/18 at 06:10; Status DC Fentanyl Citrate (Fentanyl 2ml Vial) 25 mcg 1X ONCE IVP Last administered on 12/23/18at 03:21; Start 12/23/18 at 03:30; Stop 12/23/18 at 03:31; Status DC Heparin Sodium (Porcine) (Heparin Sodium) 5,000 unit 1X STAT IV ; Start 12/23/18 at 05:58; Stop 12/23/18 at 05:59; Status UNV Heparin Sodium/ Dextrose 500 ml @ 0 mls/hr CONT PRN IV SEE I/O RECORD; Start 12/23/18 at 06:00; Status UNV Heparin Sodium (Porcine) (Heparin Sodium) 5,000 unit 1X ONCE IV Last administered on 12/23/18at 06:16; Start 12/23/18 at 06:30; Stop 12/23/18 at 06:31; Status DC Heparin Sodium/ Dextrose 500 ml @ 24 mls/hr CONT PRN PRN IV DVT Last administered on 12/23/18at 08:33; Start 12/23/18 at 06:30 Heparin Sodium (Porcine) (Heparin Sodium) 3,050 unit PRN Q6HRS PRN IV FOR UFH LEVEL LESS THAN 0.2; Start 12/23/18 at 06:15 Heparin Sodium (Porcine) (Heparin Sodium) 1,550 unit PRN Q6HRS PRN IV FOR UFH LEVEL 0.2 - 0.29; Start 12/23/18 at 06:15 Propofol 20 ml @ As Directed STK-MED ONCE IV ; Start 12/23/18 at 06:28; Stop 12/23/18 at 06:28; Status DC Lidocaine HCl (Lidocaine Pf 2% Vial) 5 ml STK-MED ONCE .ROUTE ; Start 12/23/18 at 06:28; Stop 12/23/18 at 06:28; Status DC Fentanyl Citrate (Fentanyl 2ml Vial) 100 mcg STK-MED ONCE .ROUTE ; Start 12/23/18 at 06:28; Stop 12/23/18 at 06:28; Status DC Rocuronium [place] (Zemuron) 50 mg STK-MED ONCE .ROUTE ; Start 12/23/18 at 06:28; Stop 12/23/18 at 06:28; Status DC Heparin Sodium (Porcine) 5000 unit/Sodium Chloride 505 ml @ 505 mls/hr 1X ONCE IRR ; Start 12/23/18 at 07:30; Stop 12/23/18 at 08:29; Status DC Cefazolin Sodium 1 gm/Sodium Chloride 500 ml @ 500 mls/hr 1X ONCE IRR Last administered on 12/23/18at 08:33; Start 12/23/18 at 07:30; Stop 12/23/18 at 08:29; Status DC Lidocaine HCl 16 ml/Sodium Bicarbonate 4 meq/ Miscellaneous 20 ml @ 20 mls/hr 1X ONCE ID Last administered on 12/23/18at 08:33; Start 12/23/18 at 07:30; Stop 12/23/18 at 08:29; Status DC Ondansetron HCl (Zofran) 4 mg PRN Q6HRS PRN IV NAUSEA/VOMITING; Start 12/23/18 at 07:30; Stop 12/24/18 at 07:29; Status DC Fentanyl Citrate (Fentanyl 2ml Vial) 25 mcg PRN Q5MIN PRN IV MILD PAIN 1-3; Start 12/23/18 at 07:30; Stop 12/24/18 at 07:29; Status DC Fentanyl Citrate (Fentanyl 2ml Vial) 50 mcg PRN Q5MIN PRN IV MODERATE TO SEVERE PAIN; Start 12/23/18 at 07:30; Stop 12/24/18 at 07:29; Status DC Morphine Sulfate (Morphine Sulfate) 1 mg PRN Q10MIN PRN IV SEVERE PAIN 7-10; Start 12/23/18 at 07:30; Stop 12/24/18 at 07:29; Status DC Ringer's Solution 1,000 ml @ 30 mls/hr Q24H IV ; Start 12/23/18 at 07:21; Stop 12/23/18 at 19:20; Status DC Lidocaine HCl (Xylocaine-Mpf 1% 2ml Vial) 2 ml PRN 1X PRN ID PRIOR TO IV START; Start 12/23/18 at 07:30; Stop 12/24/18 at 07:29; Status DC Hydromorphone HCl (Dilaudid) 0.5 mg PRN Q10MIN PRN IV SEV PAIN, Second choice; Start 12/23/18 at 07:30; Stop 12/24/18 at 07:29; Status DC Prochlorperazine Edisylate (Compazine) 5 mg PACU PRN PRN IV NAUSEA, MRX1; Start 12/23/18 at 07:30; Stop 12/24/18 at 07:29; Status DC Succinylcholine Chloride (Anectine) 200 mg STK-MED ONCE .ROUTE ; Start 12/23/18 at 07:45; Stop 12/23/18 at 07:46; Status DC Fentanyl Citrate (Fentanyl 2ml Vial) 100 mcg STK-MED ONCE .ROUTE ; Start 12/23/18 at 08:24; Stop 12/23/18 at 08:24; Status DC Labetalol HCl (Normodyne Iv Push) 10 mg 1X ONCE IVP ; Start 12/23/18 at 08:30; Stop 12/23/18 at 08:31; Status DC Phenylephrine HCl (Cheko-Synephrine Inj) 10 mg STK-MED ONCE .ROUTE ; Start 12/23/18 at 08:48; Stop 12/23/18 at 08:48; Status DC Iohexol (Omnipaque 300 Mg/ml) 50 ml STK-MED ONCE .ROUTE Last administered on 12/23/18at 08:33; Start 12/23/18 at 09:05; Stop 12/23/18 at 09:05; Status DC Hydrocortisone Sodium Succinate (Solu-CORTEF) 100 mg STK-MED ONCE .ROUTE ; Start 12/23/18 at 09:06; Stop 12/23/18 at 09:06; Status DC Dexamethasone Sodium Phosphate (Decadron) 4 mg STK-MED ONCE .ROUTE ; Start 12/23/18 at 09:06; Stop 12/23/18 at 09:06; Status DC Ondansetron HCl (Zofran) 4 mg STK-MED ONCE .ROUTE ; Start 12/23/18 at 09:06; Stop 12/23/18 at 09:06; Status DC Famotidine (Pepcid Vial) 20 mg STK-MED ONCE .ROUTE ; Start 12/23/18 at 09:06; Stop 12/23/18 at 09:07; Status DC Neostigmine Methylsulfate (Neostigmine Methylsulfate) 5 mg STK-MED ONCE .ROUTE ; Start 12/23/18 at 09:10; Stop 12/23/18 at 09:10; Status DC Glycopyrrolate (Robinul) 1 mg STK-MED ONCE .ROUTE ; Start 12/23/18 at 09:10; Stop 12/23/18 at 09:11; Status DC Heparin Sodium (Porcine) (Heparin Sodium) 10,000 unit STK-MED ONCE .ROUTE ; Start 12/23/18 at 09:23; Stop 12/23/18 at 09:23; Status DC Iohexol (Omnipaque 300 Mg/ml) 50 ml STK-MED ONCE .ROUTE Last administered on 12/23/18at 08:33; Start 12/23/18 at 09:28; Stop 12/23/18 at 09:28; Status DC Sevoflurane (Ultane) 90 ml STK-MED ONCE IH ; Start 12/23/18 at 09:44; Stop 12/23/18 at 09:44; Status DC Hydrocortisone Sodium Succinate (Solu-CORTEF) 100 mg 1X ONCE IV ; Start 12/23/18 at 11:00; Stop 12/23/18 at 11:15; Status DC Labetalol HCl (Normodyne Iv Push) 5 mg PRN Q10MIN PRN IVP HYPERTENSION Last administered on 12/23/18at 11:24; Start 12/23/18 at 11:30 Potassium Chloride/Dextrose/ Sod Cl 1,000 ml @ 125 mls/hr Q8H IV Last administered on 12/24/18at 08:24; Start 12/23/18 at 12:00; Stop 12/24/18 at 09:51; Status DC Potassium Chloride/Dextrose/ Sod Cl 1,000 ml @ 125 mls/hr Q8H IV Last administered on 12/24/18at 12:38; Start 12/24/18 at 10:30 Active Scripts Active Reported Losartan Potassium 100 Mg Tablet 100 Mg PO DAILY Multi-Vitamin Daily (Multivitamin) 1 Each Tablet 1 Tab PO DAILY 30 Days Coumadin (Warfarin Sodium) 4 Mg Tablet 3.5 Mg PO DAILY Atorvastatin Calcium 20 Mg Tablet 1 Tab PO DAILY Toprol Xl (Metoprolol Succinate) 50 Mg Tab.er.24h 25 Mg PO DAILY Amlodipine Besylate 10 Mg Tablet 10 Mg PO DAILY Uloric (Febuxostat) 40 Mg Tablet 1 Tab PO DAILY Detrol La (Tolterodine Tartrate) 4 Mg Cap.er.24h 1 Cap PO DAILY Vitals/I & O Vital Sign - Last 24 Hours 12/23/18 12/23/18 12/23/18 12/23/18 13:15 13:45 14:15 15:00 Temp 96.6 96.6 Pulse 100 100 100 79 Resp 20 B/P (MAP) 164/89 (114) 159/85 (109) 161/89 (113) 150/83 (105) Pulse Ox 96 O2 Delivery Room Air 12/23/18 12/23/18 12/23/18 12/23/18 15:15 16:15 19:50 20:00 Temp 97.0 97.0 Pulse 92 92 96 Resp 18 B/P (MAP) 139/72 (94) 138/69 (92) 165/77 (106) Pulse Ox 100 O2 Delivery Nasal Cannula Nasal Cannula O2 Flow Rate 4.0 4.0 12/23/18 12/23/18 12/23/18 12/24/18 22:01 22:17 22:30 03:00 Temp 97.5 97.8 97.5 97.8 Pulse 88 93 Resp 18 18 20 20 B/P (MAP) 137/65 (89) 150/77 (101) Pulse Ox 96 100 100 97 O2 Delivery Nasal Cannula Nasal Cannula Nasal Cannula Nasal Cannula O2 Flow Rate 4.0 4.0 4.0 4.0 12/24/18 12/24/18 07:00 11:00 Temp 97.4 97.7 97.4 97.7 Pulse 92 83 Resp 18 19 B/P (MAP) 151/68 (95) 133/62 (85) Pulse Ox 100 99 O2 Delivery Room Air Room Air Intake and Output 0 12/23/18 12/23/18 12/24/18 15:00 23:00 07:00 Intake Total 100 ml 50 ml 1180 ml Output Total 300 ml 350 ml 425 ml Balance -200 ml -300 ml 755 ml LAURA CR MD Dec 24, 2018 13:05
[2018-12-24 15:00] VITALS: BP 146/84
--- NOTE | 2018-12-24 18:03 | NUR ---
Patient had large mixture of formed and watery stool.
[2018-12-24 19:00] VITALS: BP 153/64
--- NOTE | 2018-12-24 19:10 | NUR ---
Pt in bed without c/o pain, son at bedside assessment completed vss poc explained call light in reach will resume care and continue to monitor pt.
[2018-12-24 22:06] VITALS: BP 148/76
[2018-12-25 03:04] VITALS: BP 153/72
[2018-12-25 05:02] LABS: BASO % 0 % (0-3); EOS % 0 % (0-3); HEMATOCRIT 35.5 % (36.0-47.0); HEMOGLOBIN 11.4 g/dL (12.0-15.5); LYMPH # 1.1 x10^3/uL (1.0-4.8); LYMPH % 10 % (24-48); MEAN CORPUSCULAR HEMOGLOBIN 30 pg (25-35); MEAN CORPUSCULAR HGB CONC 32 g/dL (31-37); MEAN CORPUSCULAR VOLUME 95 fL (79-100); MONO # 0.8 x10^3/uL (0.0-1.1); MONO % 8 % (0-9); NEUT # 8.9 x10^3/uL (1.8-7.7); NEUT % 82 % (31-73); PLATELET COUNT 198 x10^3/uL (140-400); RED BLOOD COUNT 3.74 x10^6/uL (3.50-5.40); WHITE BLOOD COUNT 10.9 x10^3/uL (4.0-11.0)
[2018-12-25 05:34] LABS: CALCIUM 8.5 mg/dL (8.5-10.1); GFR 28.9; MAGNESIUM 1.5 mg/dL (1.8-2.4); POTASSIUM 4.7 mmol/L (3.5-5.1)
[2018-12-25] MEDS: PIPERACILLIN/TAZOBACTAM 3.375 GM in IV NORMAL SALINE 50ML 50 ML IV SCH ×4 (06:23→23:52)
[2018-12-25] MEDS: PANTOPRAZOLE IV PUSH 40 MG VIAL. IVP SCH (06:23)
[2018-12-25] MEDS: POTASSIUM CL 20MEQ D5-0.9%NACL 1,000 ML IV SCH (06:44)
[2018-12-25 07:00] VITALS: BP 157/72
--- NOTE | 2018-12-25 08:28 | PDOC ---
Infectious Disease Note Subjective Subjective Feeling better Comfortable No F/C/N/V/SOA + Flatus and BM ROS ROS o/w neg Vital Sign Vital Signs Vital Signs Date Time Temp Pulse Resp B/P (MAP) Pulse Ox O2 Delivery O2 Flow Rate FiO2 12/25/18 07:00 97.7 80 18 157/72 (100) 97 Room Air 97.7 12/24/18 15:00 4.0 Physical Exam PHYSICAL EXAM GENERAL: Propped up in bed, alert HEENT: Oral cavity clear, NGT - clamped NECK: Supple, no JVD. LUNGS: Clear bilaterally. HEART: S1 S2, Irregularly irregular. ABDOMEN: Obese, soft, mild tenderness in the right upper quadrant : [place] EXTREMITIES: No edema, no cyanosis. [place] left groin in place, DP palpable SKIN: Warm, dry. No generalized rash. NEUROLOGIC: Alert and oriented x 3, grossly nonfocal. PIV Labs Lab Laboratory Tests Test 12/24/18 09:31 12/24/18 11:58 12/25/18 04:55 12/25/18 07:28 Heparin Anti-Xa Act, Unfractionated 0.43 IU/mL (0.30-0.70) 0.35 IU/mL (0.30-0.70) Glucose (Fingerstick) 108 mg/dL (70-99) 54 mg/dL (70-99) White Blood Count 10.9 x10^3/uL (4.0-11.0) Red Blood Count 3.74 x10^6/uL (3.50-5.40) Hemoglobin 11.4 g/dL (12.0-15.5) Hematocrit 35.5 % (36.0-47.0) Mean Corpuscular Volume 95 fL (79-100) Mean Corpuscular Hemoglobin 30 pg (25-35) Mean Corpuscular Hemoglobin Concent 32 g/dL (31-37) Red Cell Distribution Width 14.0 % (11.5-14.5) Platelet Count 198 x10^3/uL (140-400) Neutrophils (%) (Auto) 82 % (31-73) Lymphocytes (%) (Auto) 10 % (24-48) Monocytes (%) (Auto) 8 % (0-9) Eosinophils (%) (Auto) 0 % (0-3) Basophils (%) (Auto) 0 % (0-3) Neutrophils # (Auto) 8.9 x10^3/uL (1.8-7.7) Lymphocytes # (Auto) 1.1 x10^3/uL (1.0-4.8) Monocytes # (Auto) 0.8 x10^3/uL (0.0-1.1) Eosinophils # (Auto) 0.0 x10^3/uL (0.0-0.7) Basophils # (Auto) 0.0 x10^3/uL (0.0-0.2) Sodium Level 145 mmol/L (136-145) Potassium Level 4.7 mmol/L (3.5-5.1) Chloride Level 111 mmol/L (98-107) Carbon Dioxide Level 21 mmol/L (21-32) Anion Gap 13 (6-14) Blood Urea Nitrogen 35 mg/dL (7-20) Creatinine 2.0 mg/dL (0.6-1.0) Estimated GFR (Cockcroft-Gault) 28.9 Glucose Level 119 mg/dL (70-99) Calcium Level 8.5 mg/dL (8.5-10.1) Magnesium Level 1.5 mg/dL (1.8-2.4) Test 12/25/18 07:29 Glucose (Fingerstick) 94 mg/dL (70-99) Micro Microbiology 12/18/18 Urine Culture - Final, Complete 12/18/18 Urine Culture Result 1 (ALEJANDRINA) - Final, Complete Objective Assessment Leukocytosis, likely multifactorial from ileus versus small bowel obstruction versus urinary tract infection. better Urinary retention, with Sheldon in place this admission Chronic abdominal pain, with nausea and vomiting on presentation -better. Acute kidney injury on chronic kidney disease, with underlying left nephrectomy. Ileus versus small bowel obstruction, NG tube with bilious drainage. Pyuria UC lactobacillus Acute onset left lower extremity ischemia s/p thrombectomy, angioplasty and stent, 12/23 h/o A-fib Plan Plan of Care Continue zosyn wean soon s/p dexamethasone, 12/23 Gen surgery/Vascular following Maintain aspiration precaution. D/w nursing ITALIA KRUEGER MD Dec 25, 2018 08:28
[2018-12-25] MEDS: DICLOFENAC SODIUM 1% TOPICAL GEL 100GM TUBE. TP SCH ×4 (08:58→21:30)
--- NOTE | 2018-12-25 09:13 | PDOC ---
Provider Note Provider Note Vascular S: Patient seen and examined in room. States left leg pain improved since surgery. Patient states Prevena intermittently cycles. Continues to have some epigastric pain. NPO with NG clamped. Sheldon in place. O: Awake and alert HR 80 Non-labored Abdomen obese, soft, NTND Left groin with Prevena in place and functioning, foot warm, no swelling. 2+ palpable DP pulse. A/P: Acutely ischemic left leg. POD #2 1. Left femoral thromboembolectomy. 2. Left iliac thromboembolectomy. 3. Intraoperative retrograde left iliac arteriogram. 4. Left common iliac artery angioplasty and stent utilizing a 10 x 37 mm Kristie stent expanded to 8 atmospheres of pressure. 5. Completion arteriogram. 6. Left femoral artery bovine pericardial patch angioplasty. Continue Prevena vac, will ask WCN to evaluated and secure if needed. Continue heparin gtt until patient can transition to oral anticoagulation, IM to manage patient can resume home medication. Start Plavix when can take PO. Up ad ascencion if ok with GS and IM. Indwelling urinary catheter management per GS and IM. JUS SUAREZ APRN Dec 25, 2018 09:13
[2018-12-25] MEDS: CLOPIDOGREL BISULFATE 75 MG TABLET PO ONE ×2 (09:15→11:39)
--- NOTE | 2018-12-25 09:45 | PDOC ---
SUBJECTIVE ROS States feeling better OBJECTIVE Vital Signs Vital Signs Date Time Temp Pulse Resp B/P (MAP) Pulse Ox O2 Delivery O2 Flow Rate FiO2 12/25/18 08:00 Room Air 12/25/18 07:00 97.7 80 18 157/72 (100) 97 97.7 12/24/18 15:00 4.0 I & 0 Intake and Output 12/25/18 07:00 Intake Total 80 ml Output Total 750 ml Balance -670 ml Intake Oral 80 ml Output Urine Total 750 ml # Bowel Movements 1 PHYSICAL EXAM Physical Exam GEN- NAD HEENT: OM dry , NG tube NECK: supple HEART RRR LUNGS: Clear, Non labored ABDOMEN: Soft, obese. EXTREMITIES: NO LE edema SKIN: No rashes. NEUROLOGICAL: Grossly tory; - Sheldon+, No CVA or SP tenderness DIAGNOSIS/ASSESSMENT Assessment & Plan WILLIAMS - Suspect ATN 2//2 Poor Po intake, Vomiting, SBO , UA unremarkable, Renal US Unremarkable , renal function stable , over the weekend underwent Lt LE Thromboembolectomy and arteriogram E-Lytes Stable, holding losartan Urinary retention Bladder scan with significant PVR- suppportive care, avoid Nephrotoxins, Monitor for JOAQUINA CKD stage 3 - Follows with Dr. Cavanaugh Q 6 months Solitary Kidney - S/P Lt Nephrectomy SBO- No plan for surgery currently , KUB improved per GS NG clamped today Acutely ischemic left leg. s/p Left femoral and Lt Iliac thromboembolectomy., arteriogram HTN- antihypretensives, cardiology managing Chronic atrial fibrillation- Cardiology COMMENT/RELEVANT DATA Meds Current Medications Medications (Trade) Dose Ordered Sig/Nimco Start Time Stop Time Status Last Admin Dose Admin Acetaminophen (Tylenol Supp) 650 mg PRN Q6HRS PRN 12/17/18 10:00 Acetaminophen (Tylenol) 650 mg PRN Q4HRS PRN 12/16/18 15:15 12/17/18 15:14 DC Bupivacaine HCl (Sensorcaine-Mpf 0.25%) 10 ml 1X ONCE 12/21/18 12:00 12/21/18 12:01 DC 12/21/18 12:00 10 ML Bupivacaine HCl/ Epinephrine Bitart (Sensorcain-Epi 0.5%-1:[id number] Mpf) 30 ml 1X ONCE 12/19/18 06:00 12/19/18 06:01 DC 12/19/18 06:00 30 ML Cefazolin Sodium 1 gm/Sodium Chloride 500 ml @ 500 mls/hr 1X ONCE 12/23/18 07:30 12/23/18 08:29 DC 12/23/18 08:33 Ceftriaxone Sodium (Rocephin) 1 gm Q24H 12/18/18 11:00 12/22/18 10:07 DC 12/21/18 12:42 1 GM Clonidine HCl (Catapres) 0.1 mg 1X ONCE 12/16/18 14:15 12/16/18 14:16 DC 12/16/18 15:12 0.1 MG Clopidogrel Bisulfate (Plavix) 75 mg 1X ONCE 12/25/18 09:15 12/25/18 09:16 DC Dexamethasone Sodium Phosphate (Decadron) 4 mg STK-MED ONCE 12/23/18 09:06 12/23/18 09:06 DC Dextrose/Sodium Chloride 1,000 ml @ 125 mls/hr Q8H 12/21/18 11:15 12/23/18 11:59 DC 12/23/18 03:30 125 MLS/HR Diclofenac Sodium (Voltaren) 1 marilyn QID 12/21/18 13:00 12/25/18 08:58 1 MARILYN Enoxaparin Sodium (Lovenox 100mg Syringe) 100 mg DAILY 12/17/18 10:30 12/19/18 09:14 DC 12/17/18 12:49 100 MG Famotidine (Pepcid Vial) 20 mg STK-MED ONCE 12/23/18 09:06 12/23/18 09:07 DC Fentanyl Citrate (Fentanyl 2ml Vial) 100 mcg STK-MED ONCE 12/23/18 08:24 12/23/18 08:24 DC Glycopyrrolate (Robinul) 1 mg STK-MED ONCE 12/23/18 09:10 12/23/18 09:11 DC Heparin Sodium (Porcine) (Heparin Sodium) 10,000 unit STK-MED ONCE 12/23/18 09:23 12/23/18 09:23 DC Heparin Sodium (Porcine) 5000 unit/Sodium Chloride 505 ml @ 505 mls/hr 1X ONCE 12/23/18 07:30 12/23/18 08:29 DC Heparin Sodium/ Dextrose 500 ml @ 24 mls/hr CONT PRN PRN 12/23/18 06:30 12/23/18 08:33 Hydralazine HCl (Apresoline Inj) 10 mg PRN Q6HRS PRN 12/17/18 01:00 12/22/18 03:07 10 MG Hydrocortisone Sodium Succinate (Solu-CORTEF) 100 mg 1X ONCE 12/23/18 11:00 12/23/18 11:15 DC Hydromorphone HCl (Dilaudid) 0.5 mg PRN Q10MIN PRN 12/23/18 07:30 12/24/18 07:29 DC Info (Anti-Coagulation Monitoring By Pharmacy) 1 each PRN DAILY PRN 12/17/18 10:15 12/23/18 15:35 1 EACH Insulin Human Lispro (HumaLOG) 0-6 UNITS BG 300-399... Q6HRS 12/17/18 12:00 12/17/18 10:24 DC Iohexol (Omnipaque 300 Mg/ml) 50 ml STK-MED ONCE 12/23/18 09:28 12/23/18 09:28 DC 12/23/18 08:33 50 ML Labetalol HCl (Normodyne Iv Push) 5 mg PRN Q10MIN PRN 12/23/18 11:30 12/23/18 11:24 5 MG Lidocaine HCl (Lidocaine Pf 2% Vial) 5 ml STK-MED ONCE 12/23/18 06:28 12/23/18 06:28 DC Lidocaine HCl (Xylocaine-Mpf 1% 2ml Vial) 2 ml PRN 1X PRN 12/23/18 07:30 12/24/18 07:29 DC Lidocaine HCl 16 ml/Sodium Bicarbonate 4 meq/ Miscellaneous 20 ml @ 20 mls/hr 1X ONCE 12/23/18 07:30 12/23/18 08:29 DC 12/23/18 08:33 Methylprednisolone Acetate (DEPO-Medrol 40MG VIAL) 40 mg 1X ONCE 12/21/18 12:00 12/21/18 12:01 DC 12/21/18 12:00 40 MG Midazolam HCl (Versed) 2 mg STK-MED ONCE 12/20/18 11:17 12/20/18 11:18 DC Morphine Sulfate (Morphine Sulfate) 1 mg PRN Q10MIN PRN 12/23/18 07:30 12/24/18 07:29 DC Neostigmine Methylsulfate (Bloxiverz) 10 mg STK-MED ONCE 12/20/18 11:16 12/20/18 11:17 DC Neostigmine Methylsulfate (Neostigmine Methylsulfate) 5 mg STK-MED ONCE 12/23/18 09:10 12/23/18 09:10 DC Ondansetron HCl (Zofran) 4 mg STK-MED ONCE 12/23/18 09:06 12/23/18 09:06 DC Pantoprazole Sodium (PROTONIX VIAL for IV PUSH) 40 mg DAILYAC 12/17/18 10:30 12/25/18 06:23 40 MG Phenylephrine HCl (Cheko-Synephrine Inj) 10 mg STK-MED ONCE 12/23/18 08:48 12/23/18 08:48 DC Phytonadione 10 mg/Dextrose 51 ml @ 102 mls/hr 1X ONCE 12/19/18 09:15 12/19/18 09:44 DC 12/19/18 10:37 102 MLS/HR Piperacillin Sod/ Tazobactam Sod 3.375 gm/Sodium Chloride 50 ml @ 100 mls/hr Q6HRS 12/22/18 12:00 12/25/18 06:23 100 MLS/HR Potassium Chloride/Dextrose/ Sod Cl 1,000 ml @ 125 mls/hr Q8H 12/24/18 10:30 12/25/18 06:44 125 MLS/HR Prochlorperazine Edisylate (Compazine) 5 mg PACU PRN PRN 12/23/18 07:30 12/24/18 07:29 DC Propofol 20 ml @ As Directed STK-MED ONCE 12/23/18 06:28 12/23/18 06:28 DC Ringer's Solution 1,000 ml @ 30 mls/hr Q24H 12/23/18 07:21 12/23/18 19:20 DC Rocuronium [place] (Zemuron) 50 mg STK-MED ONCE 12/23/18 06:28 12/23/18 06:28 DC Sevoflurane (Ultane) 90 ml STK-MED ONCE 12/23/18 09:44 12/23/18 09:44 DC Sodium Chloride 1,000 ml @ 125 mls/hr Q8H 12/16/18 15:10 12/16/18 17:26 DC Succinylcholine Chloride (Anectine) 200 mg STK-MED ONCE 12/23/18 07:45 12/23/18 07:46 DC Lab Laboratory Tests Test 12/24/18 11:58 12/25/18 04:55 12/25/18 07:28 12/25/18 07:29 Glucose (Fingerstick) 108 mg/dL (70-99) 54 mg/dL (70-99) 94 mg/dL (70-99) White Blood Count 10.9 x10^3/uL (4.0-11.0) Red Blood Count 3.74 x10^6/uL (3.50-5.40) Hemoglobin 11.4 g/dL (12.0-15.5) Hematocrit 35.5 % (36.0-47.0) Mean Corpuscular Volume 95 fL (79-100) Mean Corpuscular Hemoglobin 30 pg (25-35) Mean Corpuscular Hemoglobin Concent 32 g/dL (31-37) Red Cell Distribution Width 14.0 % (11.5-14.5) Platelet Count 198 x10^3/uL (140-400) Neutrophils (%) (Auto) 82 % (31-73) Lymphocytes (%) (Auto) 10 % (24-48) Monocytes (%) (Auto) 8 % (0-9) Eosinophils (%) (Auto) 0 % (0-3) Basophils (%) (Auto) 0 % (0-3) Neutrophils # (Auto) 8.9 x10^3/uL (1.8-7.7) Lymphocytes # (Auto) 1.1 x10^3/uL (1.0-4.8) Monocytes # (Auto) 0.8 x10^3/uL (0.0-1.1) Eosinophils # (Auto) 0.0 x10^3/uL (0.0-0.7) Basophils # (Auto) 0.0 x10^3/uL (0.0-0.2) Heparin Anti-Xa Act, Unfractionated 0.35 IU/mL (0.30-0.70) Sodium Level 145 mmol/L (136-145) Potassium Level 4.7 mmol/L (3.5-5.1) Chloride Level 111 mmol/L (98-107) Carbon Dioxide Level 21 mmol/L (21-32) Anion Gap 13 (6-14) Blood Urea Nitrogen 35 mg/dL (7-20) Creatinine 2.0 mg/dL (0.6-1.0) Estimated GFR (Cockcroft-Gault) 28.9 Glucose Level 119 mg/dL (70-99) Calcium Level 8.5 mg/dL (8.5-10.1) Magnesium Level 1.5 mg/dL (1.8-2.4) Results All relevant outside records, renal labs, imaging studies, telemetry/EKG's were reviewed. RUBEN RUCKER MD Dec 25, 2018 09:45
--- NOTE | 2018-12-25 09:57 | PDOC ---
SURGICAL PROGRESS NOTE Subjective Clincially doing well, abd remains soft with no peritoneal signs. She remains afebrile and WBC count is trending down. Abd series shows improvement with air in the colon, she has continued to have flatus and bowel movements. Plan is to advance to clear liquids today and remove NG tube. Will continue heparin and not change until we are certain she will not need surgery. Vital Signs Vital Signs Date Time Temp Pulse Resp B/P (MAP) Pulse Ox O2 Delivery O2 Flow Rate FiO2 12/25/18 08:00 Room Air 12/25/18 07:00 97.7 80 18 157/72 (100) 97 97.7 12/24/18 15:00 4.0 I&O Intake and Output 12/25/18 07:00 Intake Total 80 ml Output Total 750 ml Balance -670 ml Intake Oral 80 ml Output Urine Total 750 ml # Bowel Movements 1 Labs Laboratory Tests Test 12/23/18 10:59 12/23/18 17:07 12/23/18 20:00 12/24/18 03:30 White Blood Count 16.3 x10^3/uL (4.0-11.0) 12.8 x10^3/uL (4.0-11.0) Red Blood Count 3.98 x10^6/uL (3.50-5.40) 3.68 x10^6/uL (3.50-5.40) Hemoglobin 12.2 g/dL (12.0-15.5) 11.1 g/dL (12.0-15.5) Hematocrit 37.6 % (36.0-47.0) 35.3 % (36.0-47.0) Mean Corpuscular Volume 95 fL (79-100) 96 fL (79-100) Mean Corpuscular Hemoglobin 31 pg (25-35) 30 pg (25-35) Mean Corpuscular Hemoglobin Concent 32 g/dL (31-37) 32 g/dL (31-37) Red Cell Distribution Width 13.8 % (11.5-14.5) 14.2 % (11.5-14.5) Platelet Count 176 x10^3/uL (140-400) 174 x10^3/uL (140-400) Neutrophils (%) (Auto) 86 % (31-73) 87 % (31-73) Lymphocytes (%) (Auto) 8 % (24-48) 4 % (24-48) Monocytes (%) (Auto) 6 % (0-9) 8 % (0-9) Eosinophils (%) (Auto) 0 % (0-3) 0 % (0-3) Basophils (%) (Auto) 0 % (0-3) 0 % (0-3) Neutrophils # (Auto) 14.0 x10^3/uL (1.8-7.7) 11.2 x10^3/uL (1.8-7.7) Lymphocytes # (Auto) 1.2 x10^3/uL (1.0-4.8) 0.6 x10^3/uL (1.0-4.8) Monocytes # (Auto) 1.0 x10^3/uL (0.0-1.1) 1.1 x10^3/uL (0.0-1.1) Eosinophils # (Auto) 0.0 x10^3/uL (0.0-0.7) 0.0 x10^3/uL (0.0-0.7) Basophils # (Auto) 0.0 x10^3/uL (0.0-0.2) 0.0 x10^3/uL (0.0-0.2) Prothrombin Time 16.1 SEC (11.7-14.0) Prothromb Time International Ratio 1.3 (0.8-1.1) Activated Partial Thromboplast Time > 150 SEC (24-38) Heparin Anti-Xa Act, Unfractionated > 1.10 IU/mL (0.30-0.70) 0.88 IU/mL (0.30-0.70) 0.57 IU/mL (0.30-0.70) Sodium Level 138 mmol/L (136-145) 130 mmol/L (136-145) Potassium Level 3.8 mmol/L (3.5-5.1) 4.1 mmol/L (3.5-5.1) Chloride Level 104 mmol/L (98-107) 106 mmol/L (98-107) Carbon Dioxide Level 24 mmol/L (21-32) 15 mmol/L (21-32) Anion Gap 10 (6-14) 9 (6-14) Blood Urea Nitrogen 36 mg/dL (7-20) 39 mg/dL (7-20) Creatinine 1.8 mg/dL (0.6-1.0) 1.9 mg/dL (0.6-1.0) Estimated GFR (Cockcroft-Gault) 32.7 30.7 Glucose Level 149 mg/dL (70-99) 129 mg/dL (70-99) Calcium Level 8.3 mg/dL (8.5-10.1) 7.9 mg/dL (8.5-10.1) Glucose (Fingerstick) 118 mg/dL (70-99) Test 12/24/18 09:31 12/24/18 11:58 12/25/18 04:55 12/25/18 07:28 Heparin Anti-Xa Act, Unfractionated 0.43 IU/mL (0.30-0.70) 0.35 IU/mL (0.30-0.70) Glucose (Fingerstick) 108 mg/dL (70-99) 54 mg/dL (70-99) White Blood Count 10.9 x10^3/uL (4.0-11.0) Red Blood Count 3.74 x10^6/uL (3.50-5.40) Hemoglobin 11.4 g/dL (12.0-15.5) Hematocrit 35.5 % (36.0-47.0) Mean Corpuscular Volume 95 fL (79-100) Mean Corpuscular Hemoglobin 30 pg (25-35) Mean Corpuscular Hemoglobin Concent 32 g/dL (31-37) Red Cell Distribution Width 14.0 % (11.5-14.5) Platelet Count 198 x10^3/uL (140-400) Neutrophils (%) (Auto) 82 % (31-73) Lymphocytes (%) (Auto) 10 % (24-48) Monocytes (%) (Auto) 8 % (0-9) Eosinophils (%) (Auto) 0 % (0-3) Basophils (%) (Auto) 0 % (0-3) Neutrophils # (Auto) 8.9 x10^3/uL (1.8-7.7) Lymphocytes # (Auto) 1.1 x10^3/uL (1.0-4.8) Monocytes # (Auto) 0.8 x10^3/uL (0.0-1.1) Eosinophils # (Auto) 0.0 x10^3/uL (0.0-0.7) Basophils # (Auto) 0.0 x10^3/uL (0.0-0.2) Sodium Level 145 mmol/L (136-145) Potassium Level 4.7 mmol/L (3.5-5.1) Chloride Level 111 mmol/L (98-107) Carbon Dioxide Level 21 mmol/L (21-32) Anion Gap 13 (6-14) Blood Urea Nitrogen 35 mg/dL (7-20) Creatinine 2.0 mg/dL (0.6-1.0) Estimated GFR (Cockcroft-Gault) 28.9 Glucose Level 119 mg/dL (70-99) Calcium Level 8.5 mg/dL (8.5-10.1) Magnesium Level 1.5 mg/dL (1.8-2.4) Test 12/25/18 07:29 Glucose (Fingerstick) 94 mg/dL (70-99) Laboratory Tests Test 12/24/18 11:58 12/25/18 04:55 12/25/18 07:28 12/25/18 07:29 Glucose (Fingerstick) 108 mg/dL (70-99) 54 mg/dL (70-99) 94 mg/dL (70-99) White Blood Count 10.9 x10^3/uL (4.0-11.0) Red Blood Count 3.74 x10^6/uL (3.50-5.40) Hemoglobin 11.4 g/dL (12.0-15.5) Hematocrit 35.5 % (36.0-47.0) Mean Corpuscular Volume 95 fL (79-100) Mean Corpuscular Hemoglobin 30 pg (25-35) Mean Corpuscular Hemoglobin Concent 32 g/dL (31-37) Red Cell Distribution Width 14.0 % (11.5-14.5) Platelet Count 198 x10^3/uL (140-400) Neutrophils (%) (Auto) 82 % (31-73) Lymphocytes (%) (Auto) 10 % (24-48) Monocytes (%) (Auto) 8 % (0-9) Eosinophils (%) (Auto) 0 % (0-3) Basophils (%) (Auto) 0 % (0-3) Neutrophils # (Auto) 8.9 x10^3/uL (1.8-7.7) Lymphocytes # (Auto) 1.1 x10^3/uL (1.0-4.8) Monocytes # (Auto) 0.8 x10^3/uL (0.0-1.1) Eosinophils # (Auto) 0.0 x10^3/uL (0.0-0.7) Basophils # (Auto) 0.0 x10^3/uL (0.0-0.2) Heparin Anti-Xa Act, Unfractionated 0.35 IU/mL (0.30-0.70) Sodium Level 145 mmol/L (136-145) Potassium Level 4.7 mmol/L (3.5-5.1) Chloride Level 111 mmol/L (98-107) Carbon Dioxide Level 21 mmol/L (21-32) Anion Gap 13 (6-14) Blood Urea Nitrogen 35 mg/dL (7-20) Creatinine 2.0 mg/dL (0.6-1.0) Estimated GFR (Cockcroft-Gault) 28.9 Glucose Level 119 mg/dL (70-99) Calcium Level 8.5 mg/dL (8.5-10.1) Magnesium Level 1.5 mg/dL (1.8-2.4) Problem List Problems Medical Problems: (1) Epigastric pain Status: Acute (2) Epigastric pain Status: Acute (3) Nausea Status: Acute (4) Nausea Status: Acute (5) Small bowel obstruction Status: Acute JASMYN MYERS MD Dec 25, 2018 09:57
--- NOTE | 2018-12-25 09:57 | RAD ---
ACUTE ABDOMEN SERIES History: Follow-up bowel obstruction. Technique: Upright and supine views of the abdomen. Comparison: December 24, 2018. Findings: Unchanged enteric tube looped within the gastric fundus. No consolidation or pleural effusion. Portable technique accentuates cardiac size. Multiple mildly dilated air-filled loops of small bowel throughout the abdomen, decreased compared to prior. Air scattered throughout the colon. No pneumoperitoneum. Impression: 1. Multiple mildly prominent air-filled loops of small bowel, decreased compared to prior. 2. Unchanged enteric tube. Electronically signed by: Rubin Hernandez DO (12/25/2018 9:54 AM) [facility]
--- NOTE | 2018-12-25 10:24 | PDOC ---
PROGRESS NOTES Subjective Subjective No new complaints. Objective Objective Vital Signs Date Time Temp Pulse Resp B/P (MAP) Pulse Ox O2 Delivery O2 Flow Rate FiO2 12/25/18 08:00 Room Air 12/25/18 07:00 97.7 80 18 157/72 (100) 97 97.7 12/24/18 15:00 4.0 Intake and Output 12/25/18 07:00 Intake Total 80 ml Output Total 750 ml Balance -670 ml Intake Oral 80 ml Output Urine Total 750 ml # Bowel Movements 1 Physical Exam Physical Exam She is supine in bed and moves all 4 extremities actively and she still had NG tube in place. Assessment Assessment Problems Medical Problems: (1) Epigastric pain Status: Acute (2) Epigastric pain Status: Acute (3) Nausea Status: Acute (4) Nausea Status: Acute (5) Small bowel obstruction Status: Acute Plan Plan of Care To get her up as tolerated. Comment Review of Relevant I have reviewed the following items rubia (where applicable) has been applied. Labs Laboratory Tests Test 12/23/18 10:59 12/23/18 17:07 12/23/18 20:00 12/24/18 03:30 White Blood Count 16.3 x10^3/uL (4.0-11.0) 12.8 x10^3/uL (4.0-11.0) Red Blood Count 3.98 x10^6/uL (3.50-5.40) 3.68 x10^6/uL (3.50-5.40) Hemoglobin 12.2 g/dL (12.0-15.5) 11.1 g/dL (12.0-15.5) Hematocrit 37.6 % (36.0-47.0) 35.3 % (36.0-47.0) Mean Corpuscular Volume 95 fL (79-100) 96 fL (79-100) Mean Corpuscular Hemoglobin 31 pg (25-35) 30 pg (25-35) Mean Corpuscular Hemoglobin Concent 32 g/dL (31-37) 32 g/dL (31-37) Red Cell Distribution Width 13.8 % (11.5-14.5) 14.2 % (11.5-14.5) Platelet Count 176 x10^3/uL (140-400) 174 x10^3/uL (140-400) Neutrophils (%) (Auto) 86 % (31-73) 87 % (31-73) Lymphocytes (%) (Auto) 8 % (24-48) 4 % (24-48) Monocytes (%) (Auto) 6 % (0-9) 8 % (0-9) Eosinophils (%) (Auto) 0 % (0-3) 0 % (0-3) Basophils (%) (Auto) 0 % (0-3) 0 % (0-3) Neutrophils # (Auto) 14.0 x10^3/uL (1.8-7.7) 11.2 x10^3/uL (1.8-7.7) Lymphocytes # (Auto) 1.2 x10^3/uL (1.0-4.8) 0.6 x10^3/uL (1.0-4.8) Monocytes # (Auto) 1.0 x10^3/uL (0.0-1.1) 1.1 x10^3/uL (0.0-1.1) Eosinophils # (Auto) 0.0 x10^3/uL (0.0-0.7) 0.0 x10^3/uL (0.0-0.7) Basophils # (Auto) 0.0 x10^3/uL (0.0-0.2) 0.0 x10^3/uL (0.0-0.2) Prothrombin Time 16.1 SEC (11.7-14.0) Prothromb Time International Ratio 1.3 (0.8-1.1) Activated Partial Thromboplast Time > 150 SEC (24-38) Heparin Anti-Xa Act, Unfractionated > 1.10 IU/mL (0.30-0.70) 0.88 IU/mL (0.30-0.70) 0.57 IU/mL (0.30-0.70) Sodium Level 138 mmol/L (136-145) 130 mmol/L (136-145) Potassium Level 3.8 mmol/L (3.5-5.1) 4.1 mmol/L (3.5-5.1) Chloride Level 104 mmol/L (98-107) 106 mmol/L (98-107) Carbon Dioxide Level 24 mmol/L (21-32) 15 mmol/L (21-32) Anion Gap 10 (6-14) 9 (6-14) Blood Urea Nitrogen 36 mg/dL (7-20) 39 mg/dL (7-20) Creatinine 1.8 mg/dL (0.6-1.0) 1.9 mg/dL (0.6-1.0) Estimated GFR (Cockcroft-Gault) 32.7 30.7 Glucose Level 149 mg/dL (70-99) 129 mg/dL (70-99) Calcium Level 8.3 mg/dL (8.5-10.1) 7.9 mg/dL (8.5-10.1) Glucose (Fingerstick) 118 mg/dL (70-99) Test 12/24/18 09:31 12/24/18 11:58 12/25/18 04:55 12/25/18 07:28 Heparin Anti-Xa Act, Unfractionated 0.43 IU/mL (0.30-0.70) 0.35 IU/mL (0.30-0.70) Glucose (Fingerstick) 108 mg/dL (70-99) 54 mg/dL (70-99) White Blood Count 10.9 x10^3/uL (4.0-11.0) Red Blood Count 3.74 x10^6/uL (3.50-5.40) Hemoglobin 11.4 g/dL (12.0-15.5) Hematocrit 35.5 % (36.0-47.0) Mean Corpuscular Volume 95 fL (79-100) Mean Corpuscular Hemoglobin 30 pg (25-35) Mean Corpuscular Hemoglobin Concent 32 g/dL (31-37) Red Cell Distribution Width 14.0 % (11.5-14.5) Platelet Count 198 x10^3/uL (140-400) Neutrophils (%) (Auto) 82 % (31-73) Lymphocytes (%) (Auto) 10 % (24-48) Monocytes (%) (Auto) 8 % (0-9) Eosinophils (%) (Auto) 0 % (0-3) Basophils (%) (Auto) 0 % (0-3) Neutrophils # (Auto) 8.9 x10^3/uL (1.8-7.7) Lymphocytes # (Auto) 1.1 x10^3/uL (1.0-4.8) Monocytes # (Auto) 0.8 x10^3/uL (0.0-1.1) Eosinophils # (Auto) 0.0 x10^3/uL (0.0-0.7) Basophils # (Auto) 0.0 x10^3/uL (0.0-0.2) Sodium Level 145 mmol/L (136-145) Potassium Level 4.7 mmol/L (3.5-5.1) Chloride Level 111 mmol/L (98-107) Carbon Dioxide Level 21 mmol/L (21-32) Anion Gap 13 (6-14) Blood Urea Nitrogen 35 mg/dL (7-20) Creatinine 2.0 mg/dL (0.6-1.0) Estimated GFR (Cockcroft-Gault) 28.9 Glucose Level 119 mg/dL (70-99) Calcium Level 8.5 mg/dL (8.5-10.1) Magnesium Level 1.5 mg/dL (1.8-2.4) Test 12/25/18 07:29 Glucose (Fingerstick) 94 mg/dL (70-99) Laboratory Tests Test 12/24/18 11:58 12/25/18 04:55 12/25/18 07:28 12/25/18 07:29 Glucose (Fingerstick) 108 mg/dL (70-99) 54 mg/dL (70-99) 94 mg/dL (70-99) White Blood Count 10.9 x10^3/uL (4.0-11.0) Red Blood Count 3.74 x10^6/uL (3.50-5.40) Hemoglobin 11.4 g/dL (12.0-15.5) Hematocrit 35.5 % (36.0-47.0) Mean Corpuscular Volume 95 fL (79-100) Mean Corpuscular Hemoglobin 30 pg (25-35) Mean Corpuscular Hemoglobin Concent 32 g/dL (31-37) Red Cell Distribution Width 14.0 % (11.5-14.5) Platelet Count 198 x10^3/uL (140-400) Neutrophils (%) (Auto) 82 % (31-73) Lymphocytes (%) (Auto) 10 % (24-48) Monocytes (%) (Auto) 8 % (0-9) Eosinophils (%) (Auto) 0 % (0-3) Basophils (%) (Auto) 0 % (0-3) Neutrophils # (Auto) 8.9 x10^3/uL (1.8-7.7) Lymphocytes # (Auto) 1.1 x10^3/uL (1.0-4.8) Monocytes # (Auto) 0.8 x10^3/uL (0.0-1.1) Eosinophils # (Auto) 0.0 x10^3/uL (0.0-0.7) Basophils # (Auto) 0.0 x10^3/uL (0.0-0.2) Heparin Anti-Xa Act, Unfractionated 0.35 IU/mL (0.30-0.70) Sodium Level 145 mmol/L (136-145) Potassium Level 4.7 mmol/L (3.5-5.1) Chloride Level 111 mmol/L (98-107) Carbon Dioxide Level 21 mmol/L (21-32) Anion Gap 13 (6-14) Blood Urea Nitrogen 35 mg/dL (7-20) Creatinine 2.0 mg/dL (0.6-1.0) Estimated GFR (Cockcroft-Gault) 28.9 Glucose Level 119 mg/dL (70-99) Calcium Level 8.5 mg/dL (8.5-10.1) Magnesium Level 1.5 mg/dL (1.8-2.4) Microbiology 12/18/18 Urine Culture - Final, Complete 12/18/18 Urine Culture Result 1 (ALEJANDRINA) - Final, Complete Medications Current Medications Ondansetron HCl (Zofran) 4 mg 1X ONCE IM ; Start 12/16/18 at 09:30; Stop 12/16/18 at 09:31; Status DC Fentanyl Citrate (Fentanyl 2ml Vial) 75 mcg 1X ONCE IVP Last administered on 12/16/18at 09:46; Start 12/16/18 at 09:45; Stop 12/16/18 at 09:46; Status DC Ondansetron HCl (Zofran) 4 mg 1X ONCE IVP Last administered on 12/16/18at 09:51; Start 12/16/18 at 10:00; Stop 12/16/18 at 10:01; Status DC Sodium Chloride 1,000 ml @ 1,000 mls/hr 1X ONCE IV Last administered on 12/16/18at 10:40; Start 12/16/18 at 10:15; Stop 12/16/18 at 11:14; Status DC Clonidine HCl (Catapres) 0.1 mg 1X ONCE PO Last administered on 12/16/18at 15:12; Start 12/16/18 at 14:15; Stop 12/16/18 at 14:16; Status DC Fentanyl Citrate (Fentanyl 2ml Vial) 75 mcg 1X ONCE IVP ; Start 12/16/18 at 15:15; Stop 12/16/18 at 15:16; Status DC Ondansetron HCl (Zofran) 4 mg PRN Q8HRS PRN IV NAUSEA/VOMITING; Start 12/16/18 at 15:15; Stop 12/16/18 at 17:10; Status DC Fentanyl Citrate (Fentanyl 2ml Vial) 50 mcg PRN Q1HR PRN IV PAIN Last a dministered on 12/17/18at 07:28; Start 12/16/18 at 15:15; Stop 12/17/18 at 15:14; Status DC Sodium Chloride 1,000 ml @ 125 mls/hr Q8H IV ; Start 12/16/18 at 15:10; Stop 12/16/18 at 17:26; Status DC Acetaminophen (Tylenol) 650 mg PRN Q4HRS PRN PO FEVER; Start 12/16/18 at 15:15; Stop 12/17/18 at 15:14; Status DC Potassium Chloride/Dextrose/ Sod Cl 1,000 ml @ 100 mls/hr Q10H IV Last administered on 12/18/18at 01:27; Start 12/16/18 at 17:00; Stop 12/18/18 at 10:34; Status DC Ondansetron HCl (Zofran) 4 mg PRN Q6HRS PRN IVP NAUSEA/VOMITING Last administered on 12/18/18at 21:17; Start 12/16/18 at 17:00 Hydralazine HCl (Apresoline Inj) 10 mg PRN Q6HRS PRN IVP ELEVATED BP, SEE COMMENTS Last administered on 12/22/18at 03:07; Start 12/17/18 at 01:00 Enoxaparin Sodium (Lovenox 100mg Syringe) 100 mg DAILY SQ Last administered on 12/17/18at 12:49; Start 12/17/18 at 10:30; Stop 12/19/18 at 09:14; Status DC Info (Anti-Coagulation Monitoring By Pharmacy) 1 each PRN DAILY PRN MC SEE COMMENTS Last administered on 12/23/18at 15:35; Start 12/17/18 at 10:15 Pantoprazole Sodium (PROTONIX VIAL for IV PUSH) 40 mg DAILYAC IVP Last ad ministered on 12/25/18at 06:23; Start 12/17/18 at 10:30 Acetaminophen (Tylenol Supp) 650 mg PRN Q6HRS PRN MD HEADACHE / TEMP; Start 12/17/18 at 10:00 Fentanyl Citrate (Fentanyl 2ml Vial) 50 mcg PRN Q4HRS PRN IVP PAIN Last administered on 12/23/18at 22:01; Start 12/17/18 at 10:00 Insulin Human Lispro (HumaLOG) 0-6 UNITS BG 300-399... Q6HRS SQ ; Start 12/17/18 at 12:00; Stop 12/17/18 at 10:24; Status DC Ceftriaxone Sodium (Rocephin) 1 gm Q24H IVP Last administered on 12/21/18at 12:42; Start 12/18/18 at 11:00; Stop 12/22/18 at 10:07; Status DC Dextrose/Sodium Chloride 1,000 ml @ 150 mls/hr Q6H40M IV Last administered on 12/20/18at 03:00; Start 12/18/18 at 10:30; Stop 12/20/18 at 09:52; Status DC Bupivacaine HCl/ Epinephrine Bitart (Sensorcain-Epi 0.5%-1:527467 Mpf) 30 ml 1X ONCE INJ ; Start 12/18/18 at 15:00; Stop 12/18/18 at 15:01; Status Cancel Bupivacaine HCl/ Epinephrine Bitart (Sensorcain-Epi 0.5%-1:[id number] Mpf) 30 ml 1X ONCE INJ Last administered on 12/19/18at 06:00; Start 12/19/18 at 06:00; Stop 12/19/18 at 06:01; Status DC Ondansetron HCl (Zofran) 4 mg PRN Q6HRS PRN IV NAUSEA/VOMITING; Start 12/19/18 at 07:00; Stop 12/20/18 at 06:59; Status DC Fentanyl Citrate (Fentanyl 2ml Vial) 25 mcg PRN Q5MIN PRN IV MILD PAIN 1-3; Start 12/19/18 at 07:00; Stop 12/20/18 at 06:59; Status DC Fentanyl Citrate (Fentanyl 2ml Vial) 50 mcg PRN Q5MIN PRN IV MODERATE TO SEVERE PAIN; Start 12/19/18 at 07:00; Stop 12/20/18 at 06:59; Status DC Morphine Sulfate (Morphine Sulfate) 1 mg PRN Q10MIN PRN IV SEVERE PAIN 7-10; Start 12/19/18 at 07:00; Stop 12/20/18 at 06:59; Status DC Ringer's Solution 1,000 ml @ 30 mls/hr Q24H IV ; Start 12/19/18 at 07:00; Stop 12/19/18 at 18:59; Status DC Lidocaine HCl (Xylocaine-Mpf 1% 2ml Vial) 2 ml PRN 1X PRN ID PRIOR TO IV START; Start 12/19/18 at 07:00; Stop 12/20/18 at 06:59; Status DC Hydromorphone HCl (Dilaudid) 0.5 mg PRN Q10MIN PRN IV SEV PAIN, Second choice; Start 12/19/18 at 07:00; Stop 12/20/18 at 06:59; Status DC Prochlorperazine Edisylate (Compazine) 5 mg PACU PRN PRN IV NAUSEA, MRX1; Start 12/19/18 at 07:00; Stop 12/20/18 at 06:59; Status DC Phytonadione 10 mg/Dextrose 51 ml @ 102 mls/hr 1X ONCE IV Last administered on 12/19/18at 10:37; Start 12/19/18 at 09:15; Stop 12/19/18 at 09:44; Status DC Potassium Chloride/Dextrose/ Sod Cl 1,000 ml @ 150 mls/hr Q6H40M IV Last administered on 12/21/18at 03:26; Start 12/20/18 at 11:00; Stop 12/21/18 at 11:06; Status DC Lidocaine HCl (Lidocaine Pf 2% Vial) 5 ml STK-MED ONCE .ROUTE ; Start 12/20/18 at 11:14; Stop 12/20/18 at 11:14; Status DC Neostigmine Methylsulfate (Bloxiverz) 10 mg STK-MED ONCE .ROUTE ; Start 12/20/18 at 11:16; Stop 12/20/18 at 11:17; Status DC Rocuronium [place] (Zemuron) 50 mg STK-MED ONCE .ROUTE ; Start 12/20/18 at 11:17; Stop 12/20/18 at 11:17; Status DC Fentanyl Citrate (Fentanyl 2ml Vial) 100 mcg STK-MED ONCE .ROUTE ; Start at 11:17; Stop 12/20/18 at 11:18; Status DC Midazolam HCl (Versed) 2 mg STK-MED ONCE .ROUTE ; Start 12/20/18 at 11:17; St op 12/20/18 at 11:18; Status DC Glycopyrrolate (Robinul) 1 mg STK-MED ONCE .ROUTE ; Start 12/20/18 at 11:17; Stop 12/20/18 at 11:18; Status DC Succinylcholine Chloride (Anectine) 200 mg STK-MED ONCE .ROUTE ; Start 12/20/18 at 11:21; Stop 12/20/18 at 11:21; Status DC Diclofenac Sodium (Voltaren) 1 marilyn QID TP Last administered on 12/25/18at 08:58; Start 12/21/18 at 13:00 Dextrose/Sodium Chloride 1,000 ml @ 125 mls/hr Q8H IV Last administered on 12/23/18at 03:30; Start 12/21/18 at 11:15; Stop 12/23/18 at 11:59; Status DC Methylprednisolone Acetate (DEPO-Medrol 40MG VIAL) 40 mg 1X ONCE IM Last administered on 12/21/18at 12:00; Start 12/21/18 at 12:00; Stop 12/21/18 at 12:01; Status DC Bupivacaine HCl (Sensorcaine-Mpf 0.25%) 10 ml 1X ONCE IJ Last administered on 12/21/18at 12:00; Start 12/21/18 at 12:00; Stop 12/21/18 at 12:01; Status DC Piperacillin Sod/ Tazobactam Sod 3.375 gm/Sodium Chloride 50 ml @ 100 mls/hr Q6HRS IV Last administered on 12/25/18at 06:23; Start 12/22/18 at 12:00 Heparin Sodium/ Dextrose 500 ml @ 32 mls/min CONT PRN IV SEE PROTOCOL; Start 12/22/18 at 14:30; Stop 12/22/18 at 20:12; Status DC Heparin Sodium (Porcine) (Heparin Sodium) 3,050 unit PRN Q6HRS PRN IV FOR UFH LEVEL LESS THAN 0.2; Start 12/22/18 at 14:30; Stop 12/22/18 at 20:10; Status DC Heparin Sodium (Porcine) (Heparin Sodium) 1,550 unit PRN Q6HRS PRN IV FOR UFH LEVEL 0.2 - 0.29; Start 12/22/18 at 14:30; Stop 12/22/18 at 20:10; Status DC Heparin Sodium (Porcine) (Heparin Sodium) 5,000 unit Q8HRS SQ Last administered on 12/22/18at 22:11; Start 12/22/18 at 22:00; Stop 12/23/18 at 06:10; Status DC Fentanyl Citrate (Fentanyl 2ml Vial) 25 mcg 1X ONCE IVP Last administered on 12/23/18at 03:21; Start 12/23/18 at 03:30; Stop 12/23/18 at 03:31; Status DC Heparin Sodium (Porcine) (Heparin Sodium) 5,000 unit 1X STAT IV ; Start 12/23/18 at 05:58; Stop 12/23/18 at 05:59; Status UNV Heparin Sodium/ Dextrose 500 ml @ 0 mls/hr CONT PRN IV SEE I/O RECORD; Start 12/23/18 at 06:00; Status UNV Heparin Sodium (Porcine) (Heparin Sodium) 5,000 unit 1X ONCE IV Last administered on 12/23/18at 06:16; Start 12/23/18 at 06:30; Stop 12/23/18 at 06:31; Status DC Heparin Sodium/ Dextrose 500 ml @ 24 mls/hr CONT PRN PRN IV DVT Last administered on 12/23/18at 08:33; Start 12/23/18 at 06:30 Heparin Sodium (Porcine) (Heparin Sodium) 3,050 unit PRN Q6HRS PRN IV FOR UFH LEVEL LESS THAN 0.2; Start 12/23/18 at 06:15 Heparin Sodium (Porcine) (Heparin Sodium) 1,550 unit PRN Q6HRS PRN IV FOR UFH LEVEL 0.2 - 0.29; Start 12/23/18 at 06:15 Propofol 20 ml @ As Directed STK-MED ONCE IV ; Start 12/23/18 at 06:28; Stop 12/23/18 at 06:28; Status DC Lidocaine HCl (Lidocaine Pf 2% Vial) 5 ml STK-MED ONCE .ROUTE ; Start 12/23/18 at 06:28; Stop 12/23/18 at 06:28; Status DC Fentanyl Citrate (Fentanyl 2ml Vial) 100 mcg STK-MED ONCE .ROUTE ; Start 12/23/18 at 06:28; Stop 12/23/18 at 06:28; Status DC Rocuronium [place] (Zemuron) 50 mg STK-MED ONCE .ROUTE ; Start 12/23/18 at 06:28; Stop 12/23/18 at 06:28; Status DC Heparin Sodium (Porcine) 5000 unit/Sodium Chloride 505 ml @ 505 mls/hr 1X ONCE IRR ; Start 12/23/18 at 07:30; Stop 12/23/18 at 08:29; Status DC Cefazolin Sodium 1 gm/Sodium Chloride 500 ml @ 500 mls/hr 1X ONCE IRR Last administered on 12/23/18at 08:33; Start 12/23/18 at 07:30; Stop 12/23/18 at 08:29; Status DC Lidocaine HCl 16 ml/Sodium Bicarbonate 4 meq/ Miscellaneous 20 ml @ 20 mls/hr 1X ONCE ID Last administered on 12/23/18at 08:33; Start 12/23/18 at 07:30; Stop 12/23/18 at 08:29; Status DC Ondansetron HCl (Zofran) 4 mg PRN Q6HRS PRN IV NAUSEA/VOMITING; Start 12/23/18 at 07:30; Stop 12/24/18 at 07:29; Status DC Fentanyl Citrate (Fentanyl 2ml Vial) 25 mcg PRN Q5MIN PRN IV MILD PAIN 1-3; Start 12/23/18 at 07:30; Stop 12/24/18 at 07:29; Status DC Fentanyl Citrate (Fentanyl 2ml Vial) 50 mcg PRN Q5MIN PRN IV MODERATE TO SEVERE PAIN; Start 12/23/18 at 07:30; Stop 12/24/18 at 07:29; Status DC Morphine Sulfate (Morphine Sulfate) 1 mg PRN Q10MIN PRN IV SEVERE PAIN 7-10; Start 12/23/18 at 07:30; Stop 12/24/18 at 07:29; Status DC Ringer's Solution 1,000 ml @ 30 mls/hr Q24H IV ; Start 12/23/18 at 07:21; Stop 12/23/18 at 19:20; Status DC Lidocaine HCl (Xylocaine-Mpf 1% 2ml Vial) 2 ml PRN 1X PRN ID PRIOR TO IV START; Start 12/23/18 at 07:30; Stop 12/24/18 at 07:29; Status DC Hydromorphone HCl (Dilaudid) 0.5 mg PRN Q10MIN PRN IV SEV PAIN, Second choice; Start 12/23/18 at 07:30; Stop 12/24/18 at 07:29; Status DC Prochlorperazine Edisylate (Compazine) 5 mg PACU PRN PRN IV NAUSEA, MRX1; Start 12/23/18 at 07:30; Stop 12/24/18 at 07:29; Status DC Succinylcholine Chloride (Anectine) 200 mg STK-MED ONCE .ROUTE ; Start 12/23/18 at 07:45; Stop 12/23/18 at 07:46; Status DC Fentanyl Citrate (Fentanyl 2ml Vial) 100 mcg STK-MED ONCE .ROUTE ; Start 12/23/18 at 08:24; Stop 12/23/18 at 08:24; Status DC Labetalol HCl (Normodyne Iv Push) 10 mg 1X ONCE IVP ; Start 12/23/18 at 08:30; Stop 12/23/18 at 08:31; Status DC Phenylephrine HCl (Cheko-Synephrine Inj) 10 mg STK-MED ONCE .ROUTE ; Start at 08:48; Stop 12/23/18 at 08:48; Status DC Iohexol (Omnipaque 300 Mg/ml) 50 ml STK-MED ONCE .ROUTE Last administered on 12/23/18at 08:33; Start 12/23/18 at 09:05; Stop 12/23/18 at 09:05; Status DC Hydrocortisone Sodium Succinate (Solu-CORTEF) 100 mg STK-MED ONCE .ROUTE ; Start 12/23/18 at 09:06; Stop 12/23/18 at 09:06; Status DC Dexamethasone Sodium Phosphate (Decadron) 4 mg STK-MED ONCE .ROUTE ; Start 12/23/18 at 09:06; Stop 12/23/18 at 09:06; Status DC Ondansetron HCl (Zofran) 4 mg STK-MED ONCE .ROUTE ; Start 12/23/18 at 09:06; Stop 12/23/18 at 09:06; Status DC Famotidine (Pepcid Vial) 20 mg STK-MED ONCE .ROUTE ; Start 12/23/18 at 09:06; Stop 12/23/18 at 09:07; Status DC Neostigmine Methylsulfate (Neostigmine Methylsulfate) 5 mg STK-MED ONCE .ROUTE ; Start 12/23/18 at 09:10; Stop 12/23/18 at 09:10; Status DC Glycopyrrolate (Robinul) 1 mg STK-MED ONCE .ROUTE ; Start 12/23/18 at 09:10; Stop 12/23/18 at 09:11; Status DC Heparin Sodium (Porcine) (Heparin Sodium) 10,000 unit STK-MED ONCE .ROUTE ; Start 12/23/18 at 09:23; Stop 12/23/18 at 09:23; Status DC Iohexol (Omnipaque 300 Mg/ml) 50 ml STK-MED ONCE .ROUTE Last administered on 12/23/18at 08:33; Start 12/23/18 at 09:28; Stop 12/23/18 at 09:28; Status DC Sevoflurane (Ultane) 90 ml STK-MED ONCE IH ; Start 12/23/18 at 09:44; Stop 12/23/18 at 09:44; Status DC Hydrocortisone Sodium Succinate (Solu-CORTEF) 100 mg 1X ONCE IV ; Start 12/23/18 at 11:00; Stop 12/23/18 at 11:15; Status DC Labetalol HCl (Normodyne Iv Push) 5 mg PRN Q10MIN PRN IVP HYPERTENSION Last administered on 12/23/18at 11:24; Start 12/23/18 at 11:30 Potassium Chloride/Dextrose/ Sod Cl 1,000 ml @ 125 mls/hr Q8H IV Last administered on 12/24/18at 08:24; Start 12/23/18 at 12:00; Stop 12/24/18 at 09:51; Status DC Potassium Chloride/Dextrose/ Sod Cl 1,000 ml @ 125 mls/hr Q8H IV Last administered on 12/25/18at 06:44; Start 12/24/18 at 10:30 Clopidogrel Bisulfate (Plavix) 75 mg 1X ONCE PO ; Start 12/25/18 at 09:15; Stop 12/25/18 at 09:16; Status DC Active Scripts Active Reported Losartan Potassium 100 Mg Tablet 100 Mg PO DAILY Multi-Vitamin Daily (Multivitamin) 1 Each Tablet 1 Tab PO DAILY 30 Days Coumadin (Warfarin Sodium) 4 Mg Tablet 3.5 Mg PO DAILY Atorvastatin Calcium 20 Mg Tablet 1 Tab PO DAILY Toprol Xl (Metoprolol Succinate) 50 Mg Tab.er.24h 25 Mg PO DAILY Amlodipine Besylate 10 Mg Tablet 10 Mg PO DAILY Uloric (Febuxostat) 40 Mg Tablet 1 Tab PO DAILY Detrol La (Tolterodine Tartrate) 4 Mg Cap.er.24h 1 Cap PO DAILY Vitals/I & O Vital Sign - Last 24 Hours 12/24/18 12/24/18 12/24/18 12/24/18 11:00 15:00 19:00 19:10 Temp 97.7 97.7 98.1 97.7 97.7 98.1 Pulse 83 83 124 Resp 19 18 B/P (MAP) 133/62 (85) 146/84 (104) 153/64 (93) Pulse Ox 99 99 100 O2 Delivery Room Air Nasal Cannula Room Air Room Air O2 Flow Rate 4.0 12/24/18 12/25/18 12/25/18 12/25/18 22:06 03:04 07:00 08:00 Temp 98.1 98.4 97.7 98.1 98.4 97.7 Pulse 110 107 80 Resp 16 18 18 B/P (MAP) 148/76 (100) 153/72 (99) 157/72 (100) Pulse Ox 95 94 97 O2 Delivery Room Air Room Air Room Air Room Air Intake and Output 12/24/18 12/24/18 12/25/18 15:00 23:00 07:00 Intake Total 30 ml 50 ml 0 ml Output Total 400 ml 350 ml Balance 30 ml -350 ml -350 ml ERIKA NELSON MD Dec 25, 2018 10:24
[2018-12-25] MEDS ORDERED: ACETAMINOPHEN 325 MG TABLET. PO PRN (10:30)
--- NOTE | 2018-12-25 10:34 | PDOC ---
PROGRESS NOTES Subjective Subjective feels better. she has had bowel movements and passing flatus and denies abdominal pain. discussed with dr. Rojas who will removed NG tube and start clear liquids. wbc better and creatinine 2.0 and sodium 145. will adjust iv fluids and order some of her oral meds. will hold off on coumadin and plavix d epending on how she does today with clear liquids Objective Objective Vital Signs Date Time Temp Pulse Resp B/P (MAP) Pulse Ox O2 Delivery O2 Flow Rate FiO2 12/25/18 08:00 Room Air 12/25/18 07:00 97.7 80 18 157/72 (100) 97 97.7 12/24/18 15:00 4.0 Intake and Output 12/25/18 07:00 Intake Total 80 ml Output Total 750 ml Balance -670 ml Intake Oral 80 ml Output Urine Total 750 ml # Bowel Movements 1 Physical Exam Abdomen: Normal bowel sounds, Soft, No tenderness Heart: Normal S1, Normal S2 Extremities: No edema, Other (provena pump left groin. left foot DP 2 plus. right foot warm. ) General: Alert HEENT: Atraumatic Lungs: Clear to auscultation Neuro: Normal speech Psych/Mental Status: Mental status NL Skin: No rashes Assessment Assessment Problemspartial small-bowel obstruction improved 2. Acute kidney injury better top of chronic kidney disease stage 3.serum creatinine slightly higher 2.0 3. Hypertension. 4. Hyperlipidemia. 5. Chronic atrial fibrillation with a slightly increased VR. osteoarthritis left knee treated with steroid injection 6. Chronic gout. 7. History of a left nephrectomy. left popliteal and left iliac thromboembolectomy with left iliac artery angioplasty and stent mild leukocytosis improved Medical Problems: (1) Epigastric pain Status: Acute (2) Epigastric pain Status: Acute (3) Nausea Status: Acute (4) Nausea Status: Acute (5) Small bowel obstruction Status: Acute Plan Plan of Care d/c NG tube start clear liquids continue iv heparin consider oral coumadin and plavix tomorrow depending on how she does today with clear liquids adjust iv fluids start oral amlodipine and atorvastatin and prn norco and uloric from home lab tomorrow PT and OT and ambuilate Comment Review of Relevant I have reviewed the following items rubia (where applicable) has been applied. Labs Laboratory Tests Test 12/23/18 10:59 12/23/18 17:07 12/23/18 20:00 12/24/18 03:30 White Blood Count 16.3 x10^3/uL (4.0-11.0) 12.8 x10^3/uL (4.0-11.0) Red Blood Count 3.98 x10^6/uL (3.50-5.40) 3.68 x10^6/uL (3.50-5.40) Hemoglobin 12.2 g/dL (12.0-15.5) 11.1 g/dL (12.0-15.5) Hematocrit 37.6 % (36.0-47.0) 35.3 % (36.0-47.0) Mean Corpuscular Volume 95 fL (79-100) 96 fL (79-100) Mean Corpuscular Hemoglobin 31 pg (25-35) 30 pg (25-35) Mean Corpuscular Hemoglobin Concent 32 g/dL (31-37) 32 g/dL (31-37) Red Cell Distribution Width 13.8 % (11.5-14.5) 14.2 % (11.5-14.5) Platelet Count 176 x10^3/uL (140-400) 174 x10^3/uL (140-400) Neutrophils (%) (Auto) 86 % (31-73) 87 % (31-73) Lymphocytes (%) (Auto) 8 % (24-48) 4 % (24-48) Monocytes (%) (Auto) 6 % (0-9) 8 % (0-9) Eosinophils (%) (Auto) 0 % (0-3) 0 % (0-3) Basophils (%) (Auto) 0 % (0-3) 0 % (0-3) Neutrophils # (Auto) 14.0 x10^3/uL (1.8-7.7) 11.2 x10^3/uL (1.8-7.7) Lymphocytes # (Auto) 1.2 x10^3/uL (1.0-4.8) 0.6 x10^3/uL (1.0-4.8) Monocytes # (Auto) 1.0 x10^3/uL (0.0-1.1) 1.1 x10^3/uL (0.0-1.1) Eosinophils # (Auto) 0.0 x10^3/uL (0.0-0.7) 0.0 x10^3/uL (0.0-0.7) Basophils # (Auto) 0.0 x10^3/uL (0.0-0.2) 0.0 x10^3/uL (0.0-0.2) Prothrombin Time 16.1 SEC (11.7-14.0) Prothromb Time International Ratio 1.3 (0.8-1.1) Activated Partial Thromboplast Time > 150 SEC (24-38) Heparin Anti-Xa Act, Unfractionated > 1.10 IU/mL (0.30-0.70) 0.88 IU/mL (0.30-0.70) 0.57 IU/mL (0.30-0.70) Sodium Level 138 mmol/L (136-145) 130 mmol/L (136-145) Potassium Level 3.8 mmol/L (3.5-5.1) 4.1 mmol/L (3.5-5.1) Chloride Level 104 mmol/L (98-107) 106 mmol/L (98-107) Carbon Dioxide Level 24 mmol/L (21-32) 15 mmol/L (21-32) Anion Gap 10 (6-14) 9 (6-14) Blood Urea Nitrogen 36 mg/dL (7-20) 39 mg/dL (7-20) Creatinine 1.8 mg/dL (0.6-1.0) 1.9 mg/dL (0.6-1.0) Estimated GFR (Cockcroft-Gault) 32.7 30.7 Glucose Level 149 mg/dL (70-99) 129 mg/dL (70-99) Calcium Level 8.3 mg/dL (8.5-10.1) 7.9 mg/dL (8.5-10.1) Glucose (Fingerstick) 118 mg/dL (70-99) Test 12/24/18 09:31 12/24/18 11:58 12/25/18 04:55 12/25/18 07:28 Heparin Anti-Xa Act, Unfractionated 0.43 IU/mL (0.30-0.70) 0.35 IU/mL (0.30-0.70) Glucose (Fingerstick) 108 mg/dL (70-99) 54 mg/dL (70-99) White Blood Count 10.9 x10^3/uL (4.0-11.0) Red Blood Count 3.74 x10^6/uL (3.50-5.40) Hemoglobin 11.4 g/dL (12.0-15.5) Hematocrit 35.5 % (36.0-47.0) Mean Corpuscular Volume 95 fL (79-100) Mean Corpuscular Hemoglobin 30 pg (25-35) Mean Corpuscular Hemoglobin Concent 32 g/dL (31-37) Red Cell Distribution Width 14.0 % (11.5-14.5) Platelet Count 198 x10^3/uL (140-400) Neutrophils (%) (Auto) 82 % (31-73) Lymphocytes (%) (Auto) 10 % (24-48) Monocytes (%) (Auto) 8 % (0-9) Eosinophils (%) (Auto) 0 % (0-3) Basophils (%) (Auto) 0 % (0-3) Neutrophils # (Auto) 8.9 x10^3/uL (1.8-7.7) Lymphocytes # (Auto) 1.1 x10^3/uL (1.0-4.8) Monocytes # (Auto) 0.8 x10^3/uL (0.0-1.1) Eosinophils # (Auto) 0.0 x10^3/uL (0.0-0.7) Basophils # (Auto) 0.0 x10^3/uL (0.0-0.2) Sodium Level 145 mmol/L (136-145) Potassium Level 4.7 mmol/L (3.5-5.1) Chloride Level 111 mmol/L (98-107) Carbon Dioxide Level 21 mmol/L (21-32) Anion Gap 13 (6-14) Blood Urea Nitrogen 35 mg/dL (7-20) Creatinine 2.0 mg/dL (0.6-1.0) Estimated GFR (Cockcroft-Gault) 28.9 Glucose Level 119 mg/dL (70-99) Calcium Level 8.5 mg/dL (8.5-10.1) Magnesium Level 1.5 mg/dL (1.8-2.4) Test 12/25/18 07:29 Glucose (Fingerstick) 94 mg/dL (70-99) Laboratory Tests Test 12/24/18 11:58 12/25/18 04:55 12/25/18 07:28 12/25/18 07:29 Glucose (Fingerstick) 108 mg/dL (70-99) 54 mg/dL (70-99) 94 mg/dL (70-99) White Blood Count 10.9 x10^3/uL (4.0-11.0) Red Blood Count 3.74 x10^6/uL (3.50-5.40) Hemoglobin 11.4 g/dL (12.0-15.5) Hematocrit 35.5 % (36.0-47.0) Mean Corpuscular Volume 95 fL (79-100) Mean Corpuscular Hemoglobin 30 pg (25-35) Mean Corpuscular Hemoglobin Concent 32 g/dL (31-37) Red Cell Distribution Width 14.0 % (11.5-14.5) Platelet Count 198 x10^3/uL (140-400) Neutrophils (%) (Auto) 82 % (31-73) Lymphocytes (%) (Auto) 10 % (24-48) Monocytes (%) (Auto) 8 % (0-9) Eosinophils (%) (Auto) 0 % (0-3) Basophils (%) (Auto) 0 % (0-3) Neutrophils # (Auto) 8.9 x10^3/uL (1.8-7.7) Lymphocytes # (Auto) 1.1 x10^3/uL (1.0-4.8) Monocytes # (Auto) 0.8 x10^3/uL (0.0-1.1) Eosinophils # (Auto) 0.0 x10^3/uL (0.0-0.7) Basophils # (Auto) 0.0 x10^3/uL (0.0-0.2) Heparin Anti-Xa Act, Unfractionated 0.35 IU/mL (0.30-0.70) Sodium Level 145 mmol/L (136-145) Potassium Level 4.7 mmol/L (3.5-5.1) Chloride Level 111 mmol/L (98-107) Carbon Dioxide Level 21 mmol/L (21-32) Anion Gap 13 (6-14) Blood Urea Nitrogen 35 mg/dL (7-20) Creatinine 2.0 mg/dL (0.6-1.0) Estimated GFR (Cockcroft-Gault) 28.9 Glucose Level 119 mg/dL (70-99) Calcium Level 8.5 mg/dL (8.5-10.1) Magnesium Level 1.5 mg/dL (1.8-2.4) Microbiology 12/18/18 Urine Culture - Final, Complete 12/18/18 Urine Culture Result 1 (ALEJANDRINA) - Final, Complete Medications Current Medications Ondansetron HCl (Zofran) 4 mg 1X ONCE IM ; Start 12/16/18 at 09:30; Stop 12/16/18 at 09:31; Status DC Fentanyl Citrate (Fentanyl 2ml Vial) 75 mcg 1X ONCE IVP Last administered on 12/16/18at 09:46; Start 12/16/18 at 09:45; Stop 12/16/18 at 09:46; Status DC Ondansetron HCl (Zofran) 4 mg 1X ONCE IVP Last administered on 12/16/18at 09:51; Start 12/16/18 at 10:00; Stop 12/16/18 at 10:01; Status DC Sodium Chloride 1,000 ml @ 1,000 mls/hr 1X ONCE IV Last administered on 12/16/18at 10:40; Start 12/16/18 at 10:15; Stop 12/16/18 at 11:14; Status DC Clonidine HCl (Catapres) 0.1 mg 1X ONCE PO Last administered on 12/16/18at 15:12; Start 12/16/18 at 14:15; Stop 12/16/18 at 14:16; Status DC Fentanyl Citrate (Fentanyl 2ml Vial) 75 mcg 1X ONCE IVP ; Start 12/16/18 at 15:15; Stop 12/16/18 at 15:16; Status DC Ondansetron HCl (Zofran) 4 mg PRN Q8HRS PRN IV NAUSEA/VOMITING; Start 12/16/18 at 15:15; Stop 12/16/18 at 17:10; Status DC Fentanyl Citrate (Fentanyl 2ml Vial) 50 mcg PRN Q1HR PRN IV PAIN Last administered on 12/17/18at 07:28; Start 12/16/18 at 15:15; Stop 12/17/18 at 15:14; Status DC Sodium Chloride 1,000 ml @ 125 mls/hr Q8H IV ; Start 12/16/18 at 15:10; Stop 12/16/18 at 17:26; Status DC Acetaminophen (Tylenol) 650 mg PRN Q4HRS PRN PO FEVER; Start 12/16/18 at 15:15; Stop 12/17/18 at 15:14; Status DC Potassium Chloride/Dextrose/ Sod Cl 1,000 ml @ 100 mls/hr Q10H IV Last administered on 12/18/18at 01:27; Start 12/16/18 at 17:00; Stop 12/18/18 at 10:34; Status DC Ondansetron HCl (Zofran) 4 mg PRN Q6HRS PRN IVP NAUSEA/VOMITING Last administered on 12/18/18at 21:17; Start 12/16/18 at 17:00 Hydralazine HCl (Apresoline Inj) 10 mg PRN Q6HRS PRN IVP ELEVATED BP, SEE COMMENTS Last administered on 12/22/18at 03:07; Start 12/17/18 at 01:00 Enoxaparin Sodium (Lovenox 100mg Syringe) 100 mg DAILY SQ Last administered on 12/17/18at 12:49; Start 12/17/18 at 10:30; Stop 12/19/18 at 09:14; Status DC Info (Anti-Coagulation Monitoring By Pharmacy) 1 each PRN DAILY PRN MC SEE COMMENTS Last administered on 12/23/18at 15:35; Start 12/17/18 at 10:15 Pantoprazole Sodium (PROTONIX VIAL for IV PUSH) 40 mg DAILYAC IVP Last administered on 12/25/18at 06:23; Start 12/17/18 at 10:30 Acetaminophen (Tylenol Supp) 650 mg PRN Q6HRS PRN OH HEADACHE / TEMP; Start 12/17/18 at 10:00 Fentanyl Citrate (Fentanyl 2ml Vial) 50 mcg PRN Q4HRS PRN IVP PAIN Last administered on 12/23/18at 22:01; Start 12/17/18 at 10:00 Insulin Human Lispro (HumaLOG) 0-6 UNITS BG 300-399... Q6HRS SQ ; Start 12/17/18 at 12:00; Stop 12/17/18 at 10:24; Status DC Ceftriaxone Sodium (Rocephin) 1 gm Q24H IVP Last administered on 12/21/18at 12:42; Start 12/18/18 at 11:00; Stop 12/22/18 at 10:07; Status DC Dextrose/Sodium Chloride 1,000 ml @ 150 mls/hr Q6H40M IV Last administered on 12/20/18at 03:00; Start 12/18/18 at 10:30; Stop 12/20/18 at 09:52; Status DC Bupivacaine HCl/ Epinephrine Bitart (Sensorcain-Epi 0.5%-1:475196 Mpf) 30 ml 1X ONCE INJ ; Start 12/18/18 at 15:00; Stop 12/18/18 at 15:01; Status Cancel Bupivacaine HCl/ Epinephrine Bitart (Sensorcain-Epi 0.5%-1:[id number] Mpf) 30 ml 1X ONCE INJ Last administered on 12/19/18at 06:00; Start 12/19/18 at 06:00; Stop 12/19/18 at 06:01; Status DC Ondansetron HCl (Zofran) 4 mg PRN Q6HRS PRN IV NAUSEA/VOMITING; Start 12/19/18 at 07:00; Stop 12/20/18 at 06:59; Status DC Fentanyl Citrate (Fentanyl 2ml Vial) 25 mcg PRN Q5MIN PRN IV MILD PAIN 1-3; Start 12/19/18 at 07:00; Stop 12/20/18 at 06:59; Status DC Fentanyl Citrate (Fentanyl 2ml Vial) 50 mcg PRN Q5MIN PRN IV MODERATE TO SEVERE PAIN; Start 12/19/18 at 07:00; Stop 12/20/18 at 06:59; Status DC Morphine Sulfate (Morphine Sulfate) 1 mg PRN Q10MIN PRN IV SEVERE PAIN 7-10; Start 12/19/18 at 07:00; Stop 12/20/18 at 06:59; Status DC Ringer's Solution 1,000 ml @ 30 mls/hr Q24H IV ; Start 12/19/18 at 07:00; Stop 12/19/18 at 18:59; Status DC Lidocaine HCl (Xylocaine-Mpf 1% 2ml Vial) 2 ml PRN 1X PRN ID PRIOR TO IV START; Start 12/19/18 at 07:00; Stop 12/20/18 at 06:59; Status DC Hydromorphone HCl (Dilaudid) 0.5 mg PRN Q10MIN PRN IV SEV PAIN, Second choice; Start 12/19/18 at 07:00; Stop 12/20/18 at 06:59; Status DC Prochlorperazine Edisylate (Compazine) 5 mg PACU PRN PRN IV NAUSEA, MRX1; Start 12/19/18 at 07:00; Stop 12/20/18 at 06:59; Status DC Phytonadione 10 mg/Dextrose 51 ml @ 102 mls/hr 1X ONCE IV Last administered on 12/19/18at 10:37; Start 12/19/18 at 09:15; Stop 12/19/18 at 09:44; Status DC Potassium Chloride/Dextrose/ Sod Cl 1,000 ml @ 150 mls/hr Q6H40M IV Last administered on 12/21/18at 03:26; Start 12/20/18 at 11:00; Stop 12/21/18 at 11:06; Status DC Lidocaine HCl (Lidocaine Pf 2% Vial) 5 ml STK-MED ONCE .ROUTE ; Start 12/20/18 at 11:14; Stop 12/20/18 at 11:14; Status DC Neostigmine Methylsulfate (Bloxiverz) 10 mg STK-MED ONCE .ROUTE ; Start 12/20/18 at 11:16; Stop 12/20/18 at 11:17; Status DC Rocuronium Addison (Zemuron) 50 mg STK-MED ONCE .ROUTE ; Start 12/20/18 at 11:17; Stop 12/20/18 at 11:17; Status DC Fentanyl Citrate (Fentanyl 2ml Vial) 100 mcg STK-MED ONCE .ROUTE ; Start 12/20/18 at 11:17; Stop 12/20/18 at 11:18; Status DC Midazolam HCl (Versed) 2 mg STK-MED ONCE .ROUTE ; Start 12/20/18 at 11:17; Stop 12/20/18 at 11:18; Status DC Glycopyrrolate (Robinul) 1 mg STK-MED ONCE .ROUTE ; Start 12/20/18 at 11:17; Stop 12/20/18 at 11:18; Status DC Succinylcholine Chloride (Anectine) 200 mg STK-MED ONCE .ROUTE ; Start 12/20/18 at 11:21; Stop 12/20/18 at 11:21; Status DC Diclofenac Sodium (Voltaren) 1 marilyn QID TP Last administered on 12/25/18at 08:58; Start 12/21/18 at 13:00 Dextrose/Sodium Chloride 1,000 ml @ 125 mls/hr Q8H IV Last administered on 12/23/18at 03:30; Start 12/21/18 at 11:15; Stop 12/23/18 at 11:59; Status DC Methylprednisolone Acetate (DEPO-Medrol 40MG VIAL) 40 mg 1X ONCE IM Last administered on 12/21/18at 12:00; Start 12/21/18 at 12:00; Stop 12/21/18 at 12:01; Status DC Bupivacaine HCl (Sensorcaine-Mpf 0.25%) 10 ml 1X ONCE IJ Last administered on 12/21/18at 12:00; Start 12/21/18 at 12:00; Stop 12/21/18 at 12:01; Status DC Piperacillin Sod/ Tazobactam Sod 3.375 gm/Sodium Chloride 50 ml @ 100 mls/hr Q6HRS IV Last administered on 12/25/18at 06:23; Start 12/22/18 at 12:00 Heparin Sodium/ Dextrose 500 ml @ 32 mls/min CONT PRN IV SEE PROTOCOL; Start 12/22/18 at 14:30; Stop 12/22/18 at 20:12; Status DC Heparin Sodium (Porcine) (Heparin Sodium) 3,050 unit PRN Q6HRS PRN IV FOR UFH L EVEL LESS THAN 0.2; Start 12/22/18 at 14:30; Stop 12/22/18 at 20:10; Status DC Heparin Sodium (Porcine) (Heparin Sodium) 1,550 unit PRN Q6HRS PRN IV FOR UFH LEVEL 0.2 - 0.29; Start 12/22/18 at 14:30; Stop 12/22/18 at 20:10; Status DC Heparin Sodium (Porcine) (Heparin Sodium) 5,000 unit Q8HRS SQ Last administered on 12/22/18at 22:11; Start 12/22/18 at 22:00; Stop 12/23/18 at 06:10; Status DC Fentanyl Citrate (Fentanyl 2ml Vial) 25 mcg 1X ONCE IVP Last administered on 12/23/18at 03:21; Start 12/23/18 at 03:30; Stop 12/23/18 at 03:31; Status DC Heparin Sodium (Porcine) (Heparin Sodium) 5,000 unit 1X STAT IV ; Start at 05:58; Stop 12/23/18 at 05:59; Status UNV Heparin Sodium/ Dextrose 500 ml @ 0 mls/hr CONT PRN IV SEE I/O RECORD; Start 12/23/18 at 06:00; Status UNV Heparin Sodium (Porcine) (Heparin Sodium) 5,000 unit 1X ONCE IV Last administered on 12/23/18at 06:16; Start 12/23/18 at 06:30; Stop 12/23/18 at 06:31; Status DC Heparin Sodium/ Dextrose 500 ml @ 24 mls/hr CONT PRN PRN IV DVT Last administered on 12/23/18at 08:33; Start 12/23/18 at 06:30 Heparin Sodium (Porcine) (Heparin Sodium) 3,050 unit PRN Q6HRS PRN IV FOR UFH LEVEL LESS THAN 0.2; Start 12/23/18 at 06:15 Heparin Sodium (Porcine) (Heparin Sodium) 1,550 unit PRN Q6HRS PRN IV FOR UFH LEVEL 0.2 - 0.29; Start 12/23/18 at 06:15 Propofol 20 ml @ As Directed STK-MED ONCE IV ; Start 12/23/18 at 06:28; Stop 12/23/18 at 06:28; Status DC Lidocaine HCl (Lidocaine Pf 2% Vial) 5 ml STK-MED ONCE .ROUTE ; Start 12/23/18 at 06:28; Stop 12/23/18 at 06:28; Status DC Fentanyl Citrate (Fentanyl 2ml Vial) 100 mcg STK-MED ONCE .ROUTE ; Start 12/23/18 at 06:28; Stop 12/23/18 at 06:28; Status DC Rocuronium Addison (Zemuron) 50 mg STK-MED ONCE .ROUTE ; Start 12/23/18 at 06:2 8; Stop 12/23/18 at 06:28; Status DC Heparin Sodium (Porcine) 5000 unit/Sodium Chloride 505 ml @ 505 mls/hr 1X ONCE IRR ; Start 12/23/18 at 07:30; Stop 12/23/18 at 08:29; Status DC Cefazolin Sodium 1 gm/Sodium Chloride 500 ml @ 500 mls/hr 1X ONCE IRR Last administered on 12/23/18at 08:33; Start 12/23/18 at 07:30; Stop 12/23/18 at 08:29; Status DC Lidocaine HCl 16 ml/Sodium Bicarbonate 4 meq/ Miscellaneous 20 ml @ 20 mls/hr 1X ONCE ID Last administered on 12/23/18at 08:33; Start 12/23/18 at 07:30; Stop 12/23/18 at 08:29; Status DC Ondansetron HCl (Zofran) 4 mg PRN Q6HRS PRN IV NAUSEA/VOMITING; Start 12/23/18 at 07:30; Stop 12/24/18 at 07:29; Status DC Fentanyl Citrate (Fentanyl 2ml Vial) 25 mcg PRN Q5MIN PRN IV MILD PAIN 1-3; Start 12/23/18 at 07:30; Stop 12/24/18 at 07:29; Status DC Fentanyl Citrate (Fentanyl 2ml Vial) 50 mcg PRN Q5MIN PRN IV MODERATE TO SEVERE PAIN; Start 12/23/18 at 07:30; Stop 12/24/18 at 07:29; Status DC Morphine Sulfate (Morphine Sulfate) 1 mg PRN Q10MIN PRN IV SEVERE PAIN 7-10; Start 12/23/18 at 07:30; Stop 12/24/18 at 07:29; Status DC Ringer's Solution 1,000 ml @ 30 mls/hr Q24H IV ; Start 12/23/18 at 07:21; Stop 12/23/18 at 19:20; Status DC Lidocaine HCl (Xylocaine-Mpf 1% 2ml Vial) 2 ml PRN 1X PRN ID PRIOR TO IV START; Start 12/23/18 at 07:30; Stop 12/24/18 at 07:29; Status DC Hydromorphone HCl (Dilaudid) 0.5 mg PRN Q10MIN PRN IV SEV PAIN, Second choice; Start 12/23/18 at 07:30; Stop 12/24/18 at 07:29; Status DC Prochlorperazine Edisylate (Compazine) 5 mg PACU PRN PRN IV NAUSEA, MRX1; Start 12/23/18 at 07:30; Stop 12/24/18 at 07:29; Status DC Succinylcholine Chloride (Anectine) 200 mg STK-MED ONCE .ROUTE ; Start 12/23/18 at 07:45; Stop 12/23/18 at 07:46; Status DC Fentanyl Citrate (Fentanyl 2ml Vial) 100 mcg STK-MED ONCE .ROUTE ; Start 12/23/18 at 08:24; Stop 12/23/18 at 08:24; Status DC Labetalol HCl (Normodyne Iv Push) 10 mg 1X ONCE IVP ; Start 12/23/18 at 08:30; Stop 12/23/18 at 08:31; Status DC Phenylephrine HCl (Cheko-Synephrine Inj) 10 mg STK-MED ONCE .ROUTE ; Start 12/23/18 at 08:48; Stop 12/23/18 at 08:48; Status DC Iohexol (Omnipaque 300 Mg/ml) 50 ml STK-MED ONCE .ROUTE Last administered on 12/23/18at 08:33; Start 12/23/18 at 09:05; Stop 12/23/18 at 09:05; Status DC Hydrocortisone Sodium Succinate (Solu-CORTEF) 100 mg STK-MED ONCE .ROUTE ; Start 12/23/18 at 09:06; Stop 12/23/18 at 09:06; Status DC Dexamethasone Sodium Phosphate (Decadron) 4 mg STK-MED ONCE .ROUTE ; Start 12/23/18 at 09:06; Stop 12/23/18 at 09:06; Status DC Ondansetron HCl (Zofran) 4 mg STK-MED ONCE .ROUTE ; Start 12/23/18 at 09:06; Stop 12/23/18 at 09:06; Status DC Famotidine (Pepcid Vial) 20 mg STK-MED ONCE .ROUTE ; Start 12/23/18 at 09:06; Stop 12/23/18 at 09:07; Status DC Neostigmine Methylsulfate (Neostigmine Methylsulfate) 5 mg STK-MED ONCE .ROUTE ; Start 12/23/18 at 09:10; Stop 12/23/18 at 09:10; Status DC Glycopyrrolate (Robinul) 1 mg STK-MED ONCE .ROUTE ; Start 12/23/18 at 09:10; Stop 12/23/18 at 09:11; Status DC Heparin Sodium (Porcine) (Heparin Sodium) 10,000 unit STK-MED ONCE .ROUTE ; Start 12/23/18 at 09:23; Stop 12/23/18 at 09:23; Status DC Iohexol (Omnipaque 300 Mg/ml) 50 ml STK-MED ONCE .ROUTE Last administered on 12/23/18at 08:33; Start 12/23/18 at 09:28; Stop 12/23/18 at 09:28; Status DC Sevoflurane (Ultane) 90 ml STK-MED ONCE IH ; Start 12/23/18 at 09:44; Stop 12/23/18 at 09:44; Status DC Hydrocortisone Sodium Succinate (Solu-CORTEF) 100 mg 1X ONCE IV ; Start 12/23/18 at 11:00; Stop 12/23/18 at 11:15; Status DC Labetalol HCl (Normodyne Iv Push) 5 mg PRN Q10MIN PRN IVP HYPERTENSION Last administered on 12/23/18at 11:24; Start 12/23/18 at 11:30 Potassium Chloride/Dextrose/ Sod Cl 1,000 ml @ 125 mls/hr Q8H IV Last administered on 12/24/18at 08:24; Start 12/23/18 at 12:00; Stop 12/24/18 at 09:51; Status DC Potassium Chloride/Dextrose/ Sod Cl 1,000 ml @ 125 mls/hr Q8H IV Last adm inistered on 12/25/18at 06:44; Start 12/24/18 at 10:30 Clopidogrel Bisulfate (Plavix) 75 mg 1X ONCE PO ; Start 12/25/18 at 09:15; Stop 12/25/18 at 09:16; Status DC Active Scripts Active Reported Losartan Potassium 100 Mg Tablet 100 Mg PO DAILY Multi-Vitamin Daily (Multivitamin) 1 Each Tablet 1 Tab PO DAILY 30 Days Coumadin (Warfarin Sodium) 4 Mg Tablet 3.5 Mg PO DAILY Atorvastatin Calcium 20 Mg Tablet 1 Tab PO DAILY Toprol Xl (Metoprolol Succinate) 50 Mg Tab.er.24h 25 Mg PO DAILY Amlodipine Besylate 10 Mg Tablet 10 Mg PO DAILY Uloric (Febuxostat) 40 Mg Tablet 1 Tab PO DAILY Detrol La (Tolterodine Tartrate) 4 Mg Cap.er.24h 1 Cap PO DAILY Vitals/I & O Vital Sign - Last 24 Hours 12/24/18 12/24/18 12/24/18 12/24/18 11:00 15:00 19:00 19:10 Temp 97.7 97.7 98.1 97.7 97.7 98.1 Pulse 83 83 124 Resp 19 18 B/P (MAP) 133/62 (85) 146/84 (104) 153/64 (93) Pulse Ox 99 99 100 O2 Delivery Room Air Nasal Cannula Room Air Room Air O2 Flow Rate 4.0 12/24/18 12/25/18 12/25/18 12/25/18 22:06 03:04 07:00 08:00 Temp 98.1 98.4 97.7 98.1 98.4 97.7 Pulse 110 107 80 Resp 16 18 18 B/P (MAP) 148/76 (100) 153/72 (99) 157/72 (100) Pulse Ox 95 94 97 O2 Delivery Room Air Room Air Room Air Room Air Intake and Output 12/24/18 12/24/18 12/25/18 15:00 23:00 07:00 Intake Total 30 ml 50 ml 0 ml Output Total 400 ml 350 ml Balance 30 ml -350 ml -350 ml LAURA CROOKS MD Dec 25, 2018 10:34
[2018-12-25] MEDS ORDERED: HYDROcodone/APAP 5/325MG 1 TAB TABLET PO PRN (10:45)
[2018-12-25 11:00] VITALS: BP 185/85
[2018-12-25] MEDS: amLODIPine BESYLATE 5 MG TABLET PO SCH (11:40)
[2018-12-25] MEDS: METOPROLOL SUCC 24HR ER 25 MG TAB.ER.24H. PO SCH (11:40)
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
--- NOTE | 2018-12-25 12:06 | NUR ---
RN NOTE spoke with Dr. Cedeno regarding transfer to med/tele order to continue to monitor on this unit
--- NOTE | 2018-12-25 12:16 | PDOC ---
Subjective: Subjective: Doing okay w/ clears, passed gas earlier. Objective: Objective: Has stooled per nurse, plans to remove NGT. IV PPI stopped. Vital Signs: Vital Signs Date Time Temp Pulse Resp B/P (MAP) Pulse Ox O2 Delivery O2 Flow Rate FiO2 12/25/18 11:40 107 185/85 12/25/18 11:00 97.6 18 97 Room Air 97.6 12/24/18 15:00 4.0 Labs: Laboratory Tests Test 12/25/18 04:55 12/25/18 07:28 12/25/18 07:29 12/25/18 11:45 White Blood Count 10.9 x10^3/uL Red Blood Count 3.74 x10^6/uL Hemoglobin 11.4 g/dL Hematocrit 35.5 % Mean Corpuscular Volume 95 fL Mean Corpuscular Hemoglobin 30 pg Mean Corpuscular Hemoglobin Concent 32 g/dL Red Cell Distribution Width 14.0 % Platelet Count 198 x10^3/uL Neutrophils (%) (Auto) 82 % Lymphocytes (%) (Auto) 10 % Monocytes (%) (Auto) 8 % Eosinophils (%) (Auto) 0 % Basophils (%) (Auto) 0 % Neutrophils # (Auto) 8.9 x10^3/uL Lymphocytes # (Auto) 1.1 x10^3/uL Monocytes # (Auto) 0.8 x10^3/uL Eosinophils # (Auto) 0.0 x10^3/uL Basophils # (Auto) 0.0 x10^3/uL Heparin Anti-Xa Act, Unfractionated 0.35 IU/mL Sodium Level 145 mmol/L Potassium Level 4.7 mmol/L Chloride Level 111 mmol/L Carbon Dioxide Level 21 mmol/L Anion Gap 13 Blood Urea Nitrogen 35 mg/dL Creatinine 2.0 mg/dL Estimated GFR (Cockcroft-Gault) 28.9 Glucose Level 119 mg/dL Calcium Level 8.5 mg/dL Magnesium Level 1.5 mg/dL Glucose (Fingerstick) 54 mg/dL 94 mg/dL 99 mg/dL Imaging: [facility] 12/25 Impression: 1. Multiple mildly prominent air-filled loops of small bowel, decreased compared to prior. 2. Unchanged enteric tube. PE: GEN: NAD LUNGS: CTAB HEART: RRR ABD: quiet BS, soft, non-tender NEURO/PSYCH: A & O 3 A/P: SBO vs ileus - resolving HTN H/o A Fib - Coumadin held last week - on Heparin S/p left femoral thrombectomy, left Iliac angioplasty and stent -- Plans to continue clears and remove NG. Continue per surgery. NATHANIEL SMALL Dec 25, 2018 12:16
--- NOTE | 2018-12-25 12:28 | NUR ---
SS following up with discharge planning. Pt transferred from fourth floor. Discussed with Savana WEBSTER. PT continuing to recommend [facility]. SS met with pt to discuss discharge planning and [facility]. Pt continuing to decline [facility] stating that she will discharge to home with home healthcare. Pt reported that she does not need anymore "doctoring." Pt's RN notified. SS will continue to follow for discharge planning.
[2018-12-25] MEDS: ANTI-COAG MONITOR BY PHARMACY. MC PRN (14:03)
--- NOTE | 2018-12-25 14:05 | PDOC ---
MAVERICK RODRIGUEZ [employer]ICIAN 12/25/18 1405: CARDIO Progress Notes Date and Time Date of Service 12/25/18 Time of Evaluation 1210 Subjective Subjective: No Chest Pain, No shortness of breath, Other (wanting to go home) Vitals Vitals Vital Signs Date Time Temp Pulse Resp B/P (MAP) Pulse Ox O2 Delivery O2 Flow Rate FiO2 12/25/18 11:40 107 185/85 12/25/18 11:00 97.6 18 97 Room Air 97.6 12/24/18 15:00 4.0 Weight Weight [ ] Input and Output Intake and Output Intake and Output 12/25/18 09:00 Intake Total 80 ml Output Total 750 ml Balance -670 ml Intake Oral 80 ml Output Urine Total 750 ml # Bowel Movements 1 Laboratory Labs Laboratory Tests Test 12/25/18 04:55 12/25/18 07:28 12/25/18 07:29 12/25/18 11:45 White Blood Count 10.9 x10^3/uL (4.0-11.0) Red Blood Count 3.74 x10^6/uL (3.50-5.40) Hemoglobin 11.4 g/dL (12.0-15.5) Hematocrit 35.5 % (36.0-47.0) Mean Corpuscular Volume 95 fL (79-100) Mean Corpuscular Hemoglobin 30 pg (25-35) Mean Corpuscular Hemoglobin Concent 32 g/dL (31-37) Red Cell Distribution Width 14.0 % (11.5-14.5) Platelet Count 198 x10^3/uL (140-400) Neutrophils (%) (Auto) 82 % (31-73) Lymphocytes (%) (Auto) 10 % (24-48) Monocytes (%) (Auto) 8 % (0-9) Eosinophils (%) (Auto) 0 % (0-3) Basophils (%) (Auto) 0 % (0-3) Neutrophils # (Auto) 8.9 x10^3/uL (1.8-7.7) Lymphocytes # (Auto) 1.1 x10^3/uL (1.0-4.8) Monocytes # (Auto) 0.8 x10^3/uL (0.0-1.1) Eosinophils # (Auto) 0.0 x10^3/uL (0.0-0.7) Basophils # (Auto) 0.0 x10^3/uL (0.0-0.2) Heparin Anti-Xa Act, Unfractionated 0.35 IU/mL (0.30-0.70) Sodium Level 145 mmol/L (136-145) Potassium Level 4.7 mmol/L (3.5-5.1) Chloride Level 111 mmol/L (98-107) Carbon Dioxide Level 21 mmol/L (21-32) Anion Gap 13 (6-14) Blood Urea Nitrogen 35 mg/dL (7-20) Creatinine 2.0 mg/dL (0.6-1.0) Estimated GFR (Cockcroft-Gault) 28.9 Glucose Level 119 mg/dL (70-99) Calcium Level 8.5 mg/dL (8.5-10.1) Magnesium Level 1.5 mg/dL (1.8-2.4) Glucose (Fingerstick) 54 mg/dL (70-99) 94 mg/dL (70-99) 99 mg/dL (70-99) Microbiology Micro Microbiology 12/18/18 Urine Culture - Final, Complete 12/18/18 Urine Culture Result 1 (ALEJANDRINA) - Final, Complete Physical Exam HEENT: Neck Supple W Full Motion Chest: Symmetric LUNGS: Clear to Auscultation Heart: S1S2, irregularly irregular (AFIB- rate controlled ) Abdomen: Soft N/T Extremities: No Edema, No Calf Tenderness Neurology: alert, oriented, follow commands Assessment Assessment 1. Chronic atrial fibrillation; rate now controlled with resumption of oral metoprolol 2. Accelerated hypertension; oral antiHTN therapy resumed today 3. Mild to moderate valvular insufficiency 4. WILLIAMS; Cr ^ 2.0 5. Acute LLE ischemia; s/p left femoral and iliac thromboembolectomy. s/p [place]GE/stent of the left common iliac artery 6. SBO versus ileus; resolving Recommendations Anticoagulation with heparin gtt. Now able to to PO; resume warfarin therapy Metoprolol for rate control Add Plavix therapy Monitor BP and make adjustments as warranted Hydralazine IV PRN LAUREN CHIU MD 12/25/18 9168: CARDIO Progress Notes Plan Plan Pt. seen and examined. Agree with above PICKER TENDER note. Supportive care. Reviewed events of hospitalization. COntinue anticoagulation with hep gtt. Convert to warfarin when cleared from GI perspective. Critically ill. MAVERICK RODRIGUEZ APRN Dec 25, 2018 14:05 LAUREN CHIU MD Dec 25, 2018 23:14
[2018-12-25 15:00] VITALS: BP 163/77
[2018-12-25] MEDS ORDERED: WARFARIN 4 MG TABLET. PO ONE (16:47)
--- NOTE | 2018-12-25 16:52 | NUR ---
Pharmacy Warfarin Dosing Note S:Pharmacy consulted to assist with anticoagulation therapy started with target INR: 2 -3 O:LEYDI TRUJILLO is a 83 year old F with Atrial Fibrillation LABS: Last INR: 1.3 Last HGB: 11.4 Last HCT: 35.5 Last PLT: 198 Last dose of given on at Previous Regimen: 3.5 MG /D Vitamin K given: Drug Interaction Changes: Ongoing Drug Interactions: A:INR of 1.3 is below desired range. Target range for this patient is: 2 -3 P: Warfarin dose: 4 mg Today at 1600 Bridge Therapy: Heparin Therapeutic CONT Next INR due TOMORROW. Pharmacy anticoagulation service will continue to follow. GLENNA MICHAUD [facility] [place], 12/25/18 0956
[2018-12-25] MEDS: IV 1/2 NORMAL SALINE 1,000 ML IV SCH (18:26)
[2018-12-25] MEDS: HEPARIN 25,000UTS/500ML PREMIX 500 ML IV PRN (18:27)
[2018-12-25 19:32] VITALS: BP 151/70
[2018-12-25] MEDS: ATORVASTATIN CALCIUM 20 MG TABLET PO SCH (21:29)
[2018-12-25 23:26] VITALS: BP 187/93
[2018-12-25] MEDS: hydrALAZINE 20 MG/ML VIAL. IVP PRN (23:52)
[2018-12-26 02:00] VITALS: BP 159/72
[2018-12-26 03:22] LABS: BASO % 0 % (0-3); EOS % 0 % (0-3); HEMATOCRIT 32.4 % (36.0-47.0); HEMOGLOBIN 10.6 g/dL (12.0-15.5); LYMPH # 1.4 x10^3/uL (1.0-4.8); LYMPH % 16 % (24-48); MEAN CORPUSCULAR HEMOGLOBIN 31 pg (25-35); MEAN CORPUSCULAR HGB CONC 33 g/dL (31-37); MEAN CORPUSCULAR VOLUME 94 fL (79-100); MONO # 0.7 x10^3/uL (0.0-1.1); MONO % 7 % (0-9); NEUT % 77 % (31-73); PLATELET COUNT 208 x10^3/uL (140-400); RED BLOOD COUNT 3.44 x10^6/uL (3.50-5.40); WHITE BLOOD COUNT 9.1 x10^3/uL (4.0-11.0)
[2018-12-26 03:30] LABS: UNFRACTIONATED HEPARIN TESTING 0.16 IU/mL (0.30-0.70)
[2018-12-26 03:38] LABS: CREATININE 1.8 mg/dL (0.6-1.0); GFR 32.7; POTASSIUM 3.8 mmol/L (3.5-5.1)
[2018-12-26] MEDS: IV 1/2 NORMAL SALINE 1,000 ML IV SCH ×2 (04:17→17:09)
[2018-12-26] MEDS: HEPARIN for IV BOLUS 10,000 UNIT/10 ML VIAL. IV PRN (04:23)
[2018-12-26] MEDS: PIPERACILLIN/TAZOBACTAM 3.375 GM in IV NORMAL SALINE 50ML 50 ML IV SCH (05:37)
[2018-12-26 07:00] VITALS: BP 171/81
--- NOTE | 2018-12-26 07:35 | PDOC ---
Infectious Disease Note Subjective Subjective Feeling better Comfortable Tolerating clears No F/C/N/V/SOA + Flatus ROS ROS o/w neg Vital Sign Vital Signs Vital Signs Date Time Temp Pulse Resp B/P (MAP) Pulse Ox O2 Delivery O2 Flow Rate FiO2 12/26/18 02:00 107 159/72 (101) 12/25/18 23:26 98.0 18 97 Room Air 98.0 Physical Exam PHYSICAL EXAM GENERAL: Propped up in bed, alert HEENT: Oral cavity clear, NGT - clamped NECK: Supple, no JVD. LUNGS: Clear bilaterally. HEART: S1 S2, Irregularly irregular. ABDOMEN: Obese, soft, mild tenderness in the right upper quadrant : Sheldon EXTREMITIES: No edema, no cyanosis. Provena left groin in place, DP palpable SKIN: Warm, dry. No generalized rash. NEUROLOGIC: Alert and oriented x 3, grossly nonfocal. PIV Labs Lab Laboratory Tests Test 12/25/18 11:45 12/26/18 02:45 Glucose (Fingerstick) 99 mg/dL (70-99) White Blood Count 9.1 x10^3/uL (4.0-11.0) Red Blood Count 3.44 x10^6/uL (3.50-5.40) Hemoglobin 10.6 g/dL (12.0-15.5) Hematocrit 32.4 % (36.0-47.0) Mean Corpuscular Volume 94 fL (79-100) Mean Corpuscular Hemoglobin 31 pg (25-35) Mean Corpuscular Hemoglobin Concent 33 g/dL (31-37) Red Cell Distribution Width 14.0 % (11.5-14.5) Platelet Count 208 x10^3/uL (140-400) Neutrophils (%) (Auto) 77 % (31-73) Lymphocytes (%) (Auto) 16 % (24-48) Monocytes (%) (Auto) 7 % (0-9) Eosinophils (%) (Auto) 0 % (0-3) Basophils (%) (Auto) 0 % (0-3) Neutrophils # (Auto) 7.0 x10^3/uL (1.8-7.7) Lymphocytes # (Auto) 1.4 x10^3/uL (1.0-4.8) Monocytes # (Auto) 0.7 x10^3/uL (0.0-1.1) Eosinophils # (Auto) 0.0 x10^3/uL (0.0-0.7) Basophils # (Auto) 0.0 x10^3/uL (0.0-0.2) Prothrombin Time 16.0 SEC (11.7-14.0) Prothromb Time International Ratio 1.3 (0.8-1.1) Heparin Anti-Xa Act, Unfractionated 0.16 IU/mL (0.30-0.70) Sodium Level 143 mmol/L (136-145) Potassium Level 3.8 mmol/L (3.5-5.1) Chloride Level 110 mmol/L (98-107) Carbon Dioxide Level 23 mmol/L (21-32) Anion Gap 10 (6-14) Blood Urea Nitrogen 26 mg/dL (7-20) Creatinine 1.8 mg/dL (0.6-1.0) Estimated GFR (Cockcroft-Gault) 32.7 Glucose Level 88 mg/dL (70-99) Calcium Level 8.0 mg/dL (8.5-10.1) Micro Microbiology 12/18/18 Urine Culture - Final, Complete 12/18/18 Urine Culture Result 1 (ALEJANDRINA) - Final, Complete Objective Assessment Leukocytosis, likely multifactorial from ileus versus small bowel obstruction versus urinary tract infection. better Urinary retention, with Sheldon in place this admission Chronic abdominal pain, with nausea and vomiting on presentation -better. Acute kidney injury on chronic kidney disease, with underlying left nephrectomy.- better Ileus versus small bowel obstruction- tolerating clears Pyuria UC lactobacillus Acute onset left lower extremity ischemia s/p thrombectomy, angioplasty and stent, 12/23 h/o A-fib HTN Plan Plan of Care Discontinue zosyn dose Augmentin for a few days s/p dexamethasone, 12/23 Gen surgery/Vascular following Maintain aspiration precaution. D/w nursing ITALIA KRUEGER MD Dec 26, 2018 07:35
--- NOTE | 2018-12-26 08:33 | PDOC ---
SURGICAL PROGRESS NOTE Subjective Clincially doing well, abd remains soft with no peritoneal signs. She remains afebrile and WBC count is trending down. Abd series from yesterday shows improvement with air in the colon, she has continued to have flatus. Pt has done well with NG removal, with no episodes of n/v. Defer to medicine for diet advancement, but recommend full liquid diet. Will continue heparin as she is transitioned to coumadin etc. Vital Signs Vital Signs Date Time Temp Pulse Resp B/P (MAP) Pulse Ox O2 Delivery O2 Flow Rate FiO2 12/26/18 07:56 Room Air 12/26/18 02:00 107 159/72 (101) 12/25/18 23:26 98.0 18 97 98.0 I&O Intake and Output 12/26/18 07:00 Intake Total 720 ml Output Total 1676 ml Balance -956 ml Intake Oral 720 ml Output Urine Total 1575 ml Stool Total 101 ml Labs Laboratory Tests Test 12/24/18 09:31 12/24/18 11:58 12/25/18 04:55 12/25/18 07:28 Heparin Anti-Xa Act, Unfractionated 0.43 IU/mL (0.30-0.70) 0.35 IU/mL (0.30-0.70) Glucose (Fingerstick) 108 mg/dL (70-99) 54 mg/dL (70-99) White Blood Count 10.9 x10^3/uL (4.0-11.0) Red Blood Count 3.74 x10^6/uL (3.50-5.40) Hemoglobin 11.4 g/dL (12.0-15.5) Hematocrit 35.5 % (36.0-47.0) Mean Corpuscular Volume 95 fL (79-100) Mean Corpuscular Hemoglobin 30 pg (25-35) Mean Corpuscular Hemoglobin Concent 32 g/dL (31-37) Red Cell Distribution Width 14.0 % (11.5-14.5) Platelet Count 198 x10^3/uL (140-400) Neutrophils (%) (Auto) 82 % (31-73) Lymphocytes (%) (Auto) 10 % (24-48) Monocytes (%) (Auto) 8 % (0-9) Eosinophils (%) (Auto) 0 % (0-3) Basophils (%) (Auto) 0 % (0-3) Neutrophils # (Auto) 8.9 x10^3/uL (1.8-7.7) Lymphocytes # (Auto) 1.1 x10^3/uL (1.0-4.8) Monocytes # (Auto) 0.8 x10^3/uL (0.0-1.1) Eosinophils # (Auto) 0.0 x10^3/uL (0.0-0.7) Basophils # (Auto) 0.0 x10^3/uL (0.0-0.2) Sodium Level 145 mmol/L (136-145) Potassium Level 4.7 mmol/L (3.5-5.1) Chloride Level 111 mmol/L (98-107) Carbon Dioxide Level 21 mmol/L (21-32) Anion Gap 13 (6-14) Blood Urea Nitrogen 35 mg/dL (7-20) Creatinine 2.0 mg/dL (0.6-1.0) Estimated GFR (Cockcroft-Gault) 28.9 Glucose Level 119 mg/dL (70-99) Calcium Level 8.5 mg/dL (8.5-10.1) Magnesium Level 1.5 mg/dL (1.8-2.4) Test 12/25/18 07:29 12/25/18 11:45 12/26/18 02:45 Glucose (Fingerstick) 94 mg/dL (70-99) 99 mg/dL (70-99) White Blood Count 9.1 x10^3/uL (4.0-11.0) Red Blood Count 3.44 x10^6/uL (3.50-5.40) Hemoglobin 10.6 g/dL (12.0-15.5) Hematocrit 32.4 % (36.0-47.0) Mean Corpuscular Volume 94 fL (79-100) Mean Corpuscular Hemoglobin 31 pg (25-35) Mean Corpuscular Hemoglobin Concent 33 g/dL (31-37) Red Cell Distribution Width 14.0 % (11.5-14.5) Platelet Count 208 x10^3/uL (140-400) Neutrophils (%) (Auto) 77 % (31-73) Lymphocytes (%) (Auto) 16 % (24-48) Monocytes (%) (Auto) 7 % (0-9) Eosinophils (%) (Auto) 0 % (0-3) Basophils (%) (Auto) 0 % (0-3) Neutrophils # (Auto) 7.0 x10^3/uL (1.8-7.7) Lymphocytes # (Auto) 1.4 x10^3/uL (1.0-4.8) Monocytes # (Auto) 0.7 x10^3/uL (0.0-1.1) Eosinophils # (Auto) 0.0 x10^3/uL (0.0-0.7) Basophils # (Auto) 0.0 x10^3/uL (0.0-0.2) Prothrombin Time 16.0 SEC (11.7-14.0) Prothromb Time International Ratio 1.3 (0.8-1.1) Heparin Anti-Xa Act, Unfractionated 0.16 IU/mL (0.30-0.70) Sodium Level 143 mmol/L (136-145) Potassium Level 3.8 mmol/L (3.5-5.1) Chloride Level 110 mmol/L (98-107) Carbon Dioxide Level 23 mmol/L (21-32) Anion Gap 10 (6-14) Blood Urea Nitrogen 26 mg/dL (7-20) Creatinine 1.8 mg/dL (0.6-1.0) Estimated GFR (Cockcroft-Gault) 32.7 Glucose Level 88 mg/dL (70-99) Calcium Level 8.0 mg/dL (8.5-10.1) Laboratory Tests Test 12/25/18 11:45 12/26/18 02:45 Glucose (Fingerstick) 99 mg/dL (70-99) White Blood Count 9.1 x10^3/uL (4.0-11.0) Red Blood Count 3.44 x10^6/uL (3.50-5.40) Hemoglobin 10.6 g/dL (12.0-15.5) Hematocrit 32.4 % (36.0-47.0) Mean Corpuscular Volume 94 fL (79-100) Mean Corpuscular Hemoglobin 31 pg (25-35) Mean Corpuscular Hemoglobin Concent 33 g/dL (31-37) Red Cell Distribution Width 14.0 % (11.5-14.5) Platelet Count 208 x10^3/uL (140-400) Neutrophils (%) (Auto) 77 % (31-73) Lymphocytes (%) (Auto) 16 % (24-48) Monocytes (%) (Auto) 7 % (0-9) Eosinophils (%) (Auto) 0 % (0-3) Basophils (%) (Auto) 0 % (0-3) Neutrophils # (Auto) 7.0 x10^3/uL (1.8-7.7) Lymphocytes # (Auto) 1.4 x10^3/uL (1.0-4.8) Monocytes # (Auto) 0.7 x10^3/uL (0.0-1.1) Eosinophils # (Auto) 0.0 x10^3/uL (0.0-0.7) Basophils # (Auto) 0.0 x10^3/uL (0.0-0.2) Prothrombin Time 16.0 SEC (11.7-14.0) Prothromb Time International Ratio 1.3 (0.8-1.1) Heparin Anti-Xa Act, Unfractionated 0.16 IU/mL (0.30-0.70) Sodium Level 143 mmol/L (136-145) Potassium Level 3.8 mmol/L (3.5-5.1) Chloride Level 110 mmol/L (98-107) Carbon Dioxide Level 23 mmol/L (21-32) Anion Gap 10 (6-14) Blood Urea Nitrogen 26 mg/dL (7-20) Creatinine 1.8 mg/dL (0.6-1.0) Estimated GFR (Cockcroft-Gault) 32.7 Glucose Level 88 mg/dL (70-99) Calcium Level 8.0 mg/dL (8.5-10.1) Problem List Problems Medical Problems: (1) Epigastric pain Status: Acute (2) Epigastric pain Status: Acute (3) Nausea Status: Acute (4) Nausea Status: Acute (5) Small bowel obstruction Status: Acute JASMYN MYERS MD Dec 26, 2018 08:33
--- NOTE | 2018-12-26 08:37 | PDOC ---
Provider Note Provider Note Vascular S: Patient seen and examined in room. States left leg pain improved since surgery. Prevena vac working better. Sheldon in place. O: Awake and alert HR 80 Non-labored Abdomen obese, soft, NTND Left groin with Prevena in place and functioning, foot warm, no swelling. 2+ palpable DP pulse. A/P: Acutely ischemic left leg. POD #3 1. Left femoral thromboembolectomy. 2. Left iliac thromboembolectomy. 3. Intraoperative retrograde left iliac arteriogram. 4. Left common iliac artery angioplasty and stent utilizing a 10 x 37 mm Kristie stent expanded to 8 atmospheres of pressure. 5. Completion arteriogram. 6. Left femoral artery bovine pericardial patch angioplasty. Continue Prevena vac, remove POD #7. Continue heparin gtt until patient can transition to oral anticoagulation, IM to manage patient can resume home medication. Start Plavix, plan for today. Up ad ascencion if ok with GS and IM. Indwelling urinary catheter management per GS and IM. JUS SUAREZ APRN Dec 26, 2018 08:37
[2018-12-26] MEDS: ANTI-COAG MONITOR BY PHARMACY. MC PRN ×2 (09:10→15:20)
--- NOTE | 2018-12-26 09:21 | PDOC ---
Subjective: Subjective: Ready to go home, tired of being here. Says she'd have a formed stool if she could eat solid food. Objective: Objective: D/w nurse - loose stools. Reviewed other notes - surgery recommends full liquids but defers to primary. Vital Signs: Vital Signs Date Time Temp Pulse Resp B/P (MAP) Pulse Ox O2 Delivery O2 Flow Rate FiO2 12/26/18 07:56 Room Air 12/26/18 07:00 98.5 95 171/81 (111) 97 98.5 12/25/18 23:26 18 Labs: Laboratory Tests Test 12/25/18 11:45 12/26/18 02:45 Glucose (Fingerstick) 99 mg/dL White Blood Count 9.1 x10^3/uL Red Blood Count 3.44 x10^6/uL Hemoglobin 10.6 g/dL Hematocrit 32.4 % Mean Corpuscular Volume 94 fL Mean Corpuscular Hemoglobin 31 pg Mean Corpuscular Hemoglobin Concent 33 g/dL Red Cell Distribution Width 14.0 % Platelet Count 208 x10^3/uL Neutrophils (%) (Auto) 77 % Lymphocytes (%) (Auto) 16 % Monocytes (%) (Auto) 7 % Eosinophils (%) (Auto) 0 % Basophils (%) (Auto) 0 % Neutrophils # (Auto) 7.0 x10^3/uL Lymphocytes # (Auto) 1.4 x10^3/uL Monocytes # (Auto) 0.7 x10^3/uL Eosinophils # (Auto) 0.0 x10^3/uL Basophils # (Auto) 0.0 x10^3/uL Prothrombin Time 16.0 SEC Prothromb Time International Ratio 1.3 Heparin Anti-Xa Act, Unfractionated 0.16 IU/mL Sodium Level 143 mmol/L Potassium Level 3.8 mmol/L Chloride Level 110 mmol/L Carbon Dioxide Level 23 mmol/L Anion Gap 10 Blood Urea Nitrogen 26 mg/dL Creatinine 1.8 mg/dL Estimated GFR (Cockcroft-Gault) 32.7 Glucose Level 88 mg/dL Calcium Level 8.0 mg/dL PE: GEN: NAD LUNGS: room air HEART: irregular ABD: S/ND/NT NEURO/PSYCH: A & O 3 A/P: SBO - resolved A Fib, s/p left femoral thrombectomy, left Iliac angioplasty and stent - anticoagulation per vascular -- Improved from GI standpoint - ?full liquids NATHANIEL SMALL Dec 26, 2018 09:21
--- NOTE | 2018-12-26 09:49 | PDOC ---
PROGRESS NOTES Subjective Subjective She c/o loose stools whenever she had liquid diet by mouth. Objective Objective Vital Signs Date Time Temp Pulse Resp B/P (MAP) Pulse Ox O2 Delivery O2 Flow Rate FiO2 12/26/18 07:56 Room Air 12/26/18 07:00 98.5 95 171/81 (111) 97 98.5 12/25/18 23:26 18 12/24/18 15:00 4.0 Intake and Output 12/26/18 07:00 Intake Total 720 ml Output Total 1676 ml Balance -956 ml Intake Oral 720 ml Output Urine Total 1575 ml Stool Total 101 ml Physical Exam Physical Exam She is alert,comfortable,sitting in bedside recliner and she is walking at bedside with roller walker. She had indwelling Sheldon catheter in place. Assessment Assessment Problems Medical Problems: (1) Epigastric pain Status: Acute (2) Epigastric pain Status: Acute (3) Nausea Status: Acute (4) Nausea Status: Acute (5) Small bowel obstruction Status: Acute Plan Plan of Care To get her up as tolerated. Comment Review of Relevant I have reviewed the following items rubia (where applicable) has been applied. Labs Laboratory Tests Test 12/24/18 11:58 12/25/18 04:55 12/25/18 07:28 12/25/18 07:29 Glucose (Fingerstick) 108 mg/dL (70-99) 54 mg/dL (70-99) 94 mg/dL (70-99) White Blood Count 10.9 x10^3/uL (4.0-11.0) Red Blood Count 3.74 x10^6/uL (3.50-5.40) Hemoglobin 11.4 g/dL (12.0-15.5) Hematocrit 35.5 % (36.0-47.0) Mean Corpuscular Volume 95 fL (79-100) Mean Corpuscular Hemoglobin 30 pg (25-35) Mean Corpuscular Hemoglobin Concent 32 g/dL (31-37) Red Cell Distribution Width 14.0 % (11.5-14.5) Platelet Count 198 x10^3/uL (140-400) Neutrophils (%) (Auto) 82 % (31-73) Lymphocytes (%) (Auto) 10 % (24-48) Monocytes (%) (Auto) 8 % (0-9) Eosinophils (%) (Auto) 0 % (0-3) Basophils (%) (Auto) 0 % (0-3) Neutrophils # (Auto) 8.9 x10^3/uL (1.8-7.7) Lymphocytes # (Auto) 1.1 x10^3/uL (1.0-4.8) Monocytes # (Auto) 0.8 x10^3/uL (0.0-1.1) Eosinophils # (Auto) 0.0 x10^3/uL (0.0-0.7) Basophils # (Auto) 0.0 x10^3/uL (0.0-0.2) Heparin Anti-Xa Act, Unfractionated 0.35 IU/mL (0.30-0.70) Sodium Level 145 mmol/L (136-145) Potassium Level 4.7 mmol/L (3.5-5.1) Chloride Level 111 mmol/L (98-107) Carbon Dioxide Level 21 mmol/L (21-32) Anion Gap 13 (6-14) Blood Urea Nitrogen 35 mg/dL (7-20) Creatinine 2.0 mg/dL (0.6-1.0) Estimated GFR (Cockcroft-Gault) 28.9 Glucose Level 119 mg/dL (70-99) Calcium Level 8.5 mg/dL (8.5-10.1) Magnesium Level 1.5 mg/dL (1.8-2.4) Test 12/25/18 11:45 12/26/18 02:45 Glucose (Fingerstick) 99 mg/dL (70-99) White Blood Count 9.1 x10^3/uL (4.0-11.0) Red Blood Count 3.44 x10^6/uL (3.50-5.40) Hemoglobin 10.6 g/dL (12.0-15.5) Hematocrit 32.4 % (36.0-47.0) Mean Corpuscular Volume 94 fL (79-100) Mean Corpuscular Hemoglobin 31 pg (25-35) Mean Corpuscular Hemoglobin Concent 33 g/dL (31-37) Red Cell Distribution Width 14.0 % (11.5-14.5) Platelet Count 208 x10^3/uL (140-400) Neutrophils (%) (Auto) 77 % (31-73) Lymphocytes (%) (Auto) 16 % (24-48) Monocytes (%) (Auto) 7 % (0-9) Eosinophils (%) (Auto) 0 % (0-3) Basophils (%) (Auto) 0 % (0-3) Neutrophils # (Auto) 7.0 x10^3/uL (1.8-7.7) Lymphocytes # (Auto) 1.4 x10^3/uL (1.0-4.8) Monocytes # (Auto) 0.7 x10^3/uL (0.0-1.1) Eosinophils # (Auto) 0.0 x10^3/uL (0.0-0.7) Basophils # (Auto) 0.0 x10^3/uL (0.0-0.2) Prothrombin Time 16.0 SEC (11.7-14.0) Prothromb Time International Ratio 1.3 (0.8-1.1) Heparin Anti-Xa Act, Unfractionated 0.16 IU/mL (0.30-0.70) Sodium Level 143 mmol/L (136-145) Potassium Level 3.8 mmol/L (3.5-5.1) Chloride Level 110 mmol/L (98-107) Carbon Dioxide Level 23 mmol/L (21-32) Anion Gap 10 (6-14) Blood Urea Nitrogen 26 mg/dL (7-20) Creatinine 1.8 mg/dL (0.6-1.0) Estimated GFR (Cockcroft-Gault) 32.7 Glucose Level 88 mg/dL (70-99) Calcium Level 8.0 mg/dL (8.5-10.1) Laboratory Tests Test 12/25/18 11:45 12/26/18 02:45 Glucose (Fingerstick) 99 mg/dL (70-99) White Blood Count 9.1 x10^3/uL (4.0-11.0) Red Blood Count 3.44 x10^6/uL (3.50-5.40) Hemoglobin 10.6 g/dL (12.0-15.5) Hematocrit 32.4 % (36.0-47.0) Mean Corpuscular Volume 94 fL (79-100) Mean Corpuscular Hemoglobin 31 pg (25-35) Mean Corpuscular Hemoglobin Concent 33 g/dL (31-37) Red Cell Distribution Width 14.0 % (11.5-14.5) Platelet Count 208 x10^3/uL (140-400) Neutrophils (%) (Auto) 77 % (31-73) Lymphocytes (%) (Auto) 16 % (24-48) Monocytes (%) (Auto) 7 % (0-9) Eosinophils (%) (Auto) 0 % (0-3) Basophils (%) (Auto) 0 % (0-3) Neutrophils # (Auto) 7.0 x10^3/uL (1.8-7.7) Lymphocytes # (Auto) 1.4 x10^3/uL (1.0-4.8) Monocytes # (Auto) 0.7 x10^3/uL (0.0-1.1) Eosinophils # (Auto) 0.0 x10^3/uL (0.0-0.7) Basophils # (Auto) 0.0 x10^3/uL (0.0-0.2) Prothrombin Time 16.0 SEC (11.7-14.0) Prothromb Time International Ratio 1.3 (0.8-1.1) Heparin Anti-Xa Act, Unfractionated 0.16 IU/mL (0.30-0.70) Sodium Level 143 mmol/L (136-145) Potassium Level 3.8 mmol/L (3.5-5.1) Chloride Level 110 mmol/L (98-107) Carbon Dioxide Level 23 mmol/L (21-32) Anion Gap 10 (6-14) Blood Urea Nitrogen 26 mg/dL (7-20) Creatinine 1.8 mg/dL (0.6-1.0) Estimated GFR (Cockcroft-Gault) 32.7 Glucose Level 88 mg/dL (70-99) Calcium Level 8.0 mg/dL (8.5-10.1) Microbiology 12/18/18 Urine Culture - Final, Complete 12/18/18 Urine Culture Result 1 (ALEJANDRINA) - Final, Complete Medications Current Medications Ondansetron HCl (Zofran) 4 mg 1X ONCE IM ; Start 12/16/18 at 09:30; Stop 12/16/18 at 09:31; Status DC Fentanyl Citrate (Fentanyl 2ml Vial) 75 mcg 1X ONCE IVP Last administered on 12/16/18at 09:46; Start 12/16/18 at 09:45; Stop 12/16/18 at 09:46; Status DC Ondansetron HCl (Zofran) 4 mg 1X ONCE IVP Last administered on 12/16/18at 09:51; Start 12/16/18 at 10:00; Stop 12/16/18 at 10:01; Status DC Sodium Chloride 1,000 ml @ 1,000 mls/hr 1X ONCE IV Last administered on 12/16/18at 10:40; Start 12/16/18 at 10:15; Stop 12/16/18 at 11:14; Status DC Clonidine HCl (Catapres) 0.1 mg 1X ONCE PO Last administered on 12/16/18at 15:12; Start 12/16/18 at 14:15; Stop 12/16/18 at 14:16; Status DC Fentanyl Citrate (Fentanyl 2ml Vial) 75 mcg 1X ONCE IVP ; Start 12/16/18 at 15:15; Stop 12/16/18 at 15:16; Status DC Ondansetron HCl (Zofran) 4 mg PRN Q8HRS PRN IV NAUSEA/VOMITING; Start 12/16/18 at 15:15; Stop 12/16/18 at 17:10; Status DC Fentanyl Citrate (Fentanyl 2ml Vial) 50 mcg PRN Q1HR PRN IV PAIN Last administered on 12/17/18at 07:28; Start 12/16/18 at 15:15; Stop 12/17/18 at 15:14; Status DC Sodium Chloride 1,000 ml @ 125 mls/hr Q8H IV ; Start 12/16/18 at 15:10; Stop 12/16/18 at 17:26; Status DC Acetaminophen (Tylenol) 650 mg PRN Q4HRS PRN PO FEVER; Start 12/16/18 at 15:15; Stop 12/17/18 at 15:14; Status DC Potassium Chloride/Dextrose/ Sod Cl 1,000 ml @ 100 mls/hr Q10H IV Last administered on 12/18/18at 01:27; Start 12/16/18 at 17:00; Stop 12/18/18 at 10:34; Status DC Ondansetron HCl (Zofran) 4 mg PRN Q6HRS PRN IVP NAUSEA/VOMITING Last adm inistered on 12/18/18at 21:17; Start 12/16/18 at 17:00 Hydralazine HCl (Apresoline Inj) 10 mg PRN Q6HRS PRN IVP ELEVATED BP, SEE COMMENTS Last administered on 12/25/18at 23:52; Start 12/17/18 at 01:00 Enoxaparin Sodium (Lovenox 100mg Syringe) 100 mg DAILY SQ Last administered on 12/17/18at 12:49; Start 12/17/18 at 10:30; Stop 12/19/18 at 09:14; Status DC Info (Anti-Coagulation Monitoring By Pharmacy) 1 each PRN DAILY PRN MC SEE COMMENTS Last administered on 12/26/18at 09:10; Start 12/17/18 at 10:15 Pantoprazole Sodium (PROTONIX VIAL for IV PUSH) 40 mg DAILYAC IVP Last administered on 12/25/18at 06:23; Start 12/17/18 at 10:30; Stop 12/25/18 at 10:27; Status DC Acetaminophen (Tylenol Supp) 650 mg PRN Q6HRS PRN CA HEADACHE / TEMP; Start 12/17/18 at 10:00; Stop 12/25/18 at 10:27; Status DC Fentanyl Citrate (Fentanyl 2ml Vial) 50 mcg PRN Q4HRS PRN IVP PAIN Last administered on 12/23/18at 22:01; Start 12/17/18 at 10:00 Insulin Human Lispro (HumaLOG) 0-6 UNITS BG 300-399... Q6HRS SQ ; Start 12/17 at 12:00; Stop 12/17/18 at 10:24; Status DC Ceftriaxone Sodium (Rocephin) 1 gm Q24H IVP Last administered on 12/21/18at 1 2:42; Start 12/18/18 at 11:00; Stop 12/22/18 at 10:07; Status DC Dextrose/Sodium Chloride 1,000 ml @ 150 mls/hr Q6H40M IV Last administered on 12/20/18at 03:00; Start 12/18/18 at 10:30; Stop 12/20/18 at 09:52; Status DC Bupivacaine HCl/ Epinephrine Bitart (Sensorcain-Epi 0.5%-1:670999 Mpf) 30 ml 1X ONCE INJ ; Start 12/18/18 at 15:00; Stop 12/18/18 at 15:01; Status Cancel Bupivacaine HCl/ Epinephrine Bitart (Sensorcain-Epi 0.5%-1:[id number] Mpf) 30 ml 1X ONCE INJ Last administered on 12/19/18at 06:00; Start 12/19/18 at 06:00; Stop 12/19/18 at 06:01; Status DC Ondansetron HCl (Zofran) 4 mg PRN Q6HRS PRN IV NAUSEA/VOMITING; Start 12/19/18 at 07:00; Stop 12/20/18 at 06:59; Status DC Fentanyl Citrate (Fentanyl 2ml Vial) 25 mcg PRN Q5MIN PRN IV MILD PAIN 1-3; Start 12/19/18 at 07:00; Stop 12/20/18 at 06:59; Status DC Fentanyl Citrate (Fentanyl 2ml Vial) 50 mcg PRN Q5MIN PRN IV MODERATE TO SEVERE PAIN; Start 12/19/18 at 07:00; Stop 12/20/18 at 06:59; Status DC Morphine Sulfate (Morphine Sulfate) 1 mg PRN Q10MIN PRN IV SEVERE PAIN 7-10; Start 12/19/18 at 07:00; Stop 12/20/18 at 06:59; Status DC Ringer's Solution 1,000 ml @ 30 mls/hr Q24H IV ; Start 12/19/18 at 07:00; Stop 12/19/18 at 18:59; Status DC Lidocaine HCl (Xylocaine-Mpf 1% 2ml Vial) 2 ml PRN 1X PRN ID PRIOR TO IV START; Start 12/19/18 at 07:00; Stop 12/20/18 at 06:59; Status DC Hydromorphone HCl (Dilaudid) 0.5 mg PRN Q10MIN PRN IV SEV PAIN, Second choice; Start 12/19/18 at 07:00; Stop 12/20/18 at 06:59; Status DC Prochlorperazine Edisylate (Compazine) 5 mg PACU PRN PRN IV NAUSEA, MRX1; Start 12/19/18 at 07:00; Stop 12/20/18 at 06:59; Status DC Phytonadione 10 mg/Dextrose 51 ml @ 102 mls/hr 1X ONCE IV Last administered on 12/19/18at 10:37; Start 12/19/18 at 09:15; Stop 12/19/18 at 09:44; Status DC Potassium Chloride/Dextrose/ Sod Cl 1,000 ml @ 150 mls/hr Q6H40M IV Last administered on 12/21/18at 03:26; Start 12/20/18 at 11:00; Stop 12/21/18 at 11:06; Status DC Lidocaine HCl (Lidocaine Pf 2% Vial) 5 ml STK-MED ONCE .ROUTE ; Start 12/20/18 at 11:14; Stop 12/20/18 at 11:14; Status DC Neostigmine Methylsulfate (Bloxiverz) 10 mg STK-MED ONCE .ROUTE ; Start 12/20/18 at 11:16; Stop 12/20/18 at 11:17; Status DC Rocuronium Jackson (Zemuron) 50 mg STK-MED ONCE .ROUTE ; Start 12/20/18 at 11:17; Stop 12/20/18 at 11:17; Status DC Fentanyl Citrate (Fentanyl 2ml Vial) 100 mcg STK-MED ONCE .ROUTE ; Start 12/20/18 at 11:17; Stop 12/20/18 at 11:18; Status DC Midazolam HCl (Versed) 2 mg STK-MED ONCE .ROUTE ; Start 12/20/18 at 11:17; Stop 12/20/18 at 11:18; Status DC Glycopyrrolate (Robinul) 1 mg STK-MED ONCE .ROUTE ; Start 12/20/18 at 11:17; Stop 12/20/18 at 11:18; Status DC Succinylcholine Chloride (Anectine) 200 mg STK-MED ONCE .ROUTE ; Start 12/20/18 at 11:21; Stop 12/20/18 at 11:21; Status DC Diclofenac Sodium (Voltaren) 1 marilyn QID TP Last administered on 12/25/18at 21:30; Start 12/21/18 at 13:00 Dextrose/Sodium Chloride 1,000 ml @ 125 mls/hr Q8H IV Last administered on 12/23/18at 03:30; Start 12/21/18 at 11:15; Stop 12/23/18 at 11:59; Status DC Methylprednisolone Acetate (DEPO-Medrol 40MG VIAL) 40 mg 1X ONCE IM Last administered on 12/21/18at 12:00; Start 12/21/18 at 12:00; Stop 12/21/18 at 12:01; Status DC Bupivacaine HCl (Sensorcaine-Mpf 0.25%) 10 ml 1X ONCE IJ Last administered on 12/21/18at 12:00; Start 12/21/18 at 12:00; Stop 12/21/18 at 12:01; Status DC Piperacillin Sod/ Tazobactam Sod 3.375 gm/Sodium Chloride 50 ml @ 100 mls/hr Q6HRS IV Last administered on 12/26/18at 05:37; Start 12/22/18 at 12:00; Stop 12/26/18 at 08:41; Status DC Heparin Sodium/ Dextrose 500 ml @ 32 mls/min CONT PRN IV SEE PROTOCOL; Start 12/22/18 at 14:30; Stop 12/22/18 at 20:12; Status DC Heparin Sodium (Porcine) (Heparin Sodium) 3,050 unit PRN Q6HRS PRN IV FOR UFH LEVEL LESS THAN 0.2; Start 12/22/18 at 14:30; Stop 12/22/18 at 20:10; Status DC Heparin Sodium (Porcine) (Heparin Sodium) 1,550 unit PRN Q6HRS PRN IV FOR UFH LEVEL 0.2 - 0.29; Start 12/22/18 at 14:30; Stop 12/22/18 at 20:10; Status DC Heparin Sodium (Porcine) (Heparin Sodium) 5,000 unit Q8HRS SQ Last administered on 12/22/18at 22:11; Start 12/22/18 at 22:00; Stop 12/23/18 at 06:10; Status DC Fentanyl Citrate (Fentanyl 2ml Vial) 25 mcg 1X ONCE IVP Last administered on 12/23/18at 03:21; Start 12/23/18 at 03:30; Stop 12/23/18 at 03:31; Status DC Heparin Sodium (Porcine) (Heparin Sodium) 5,000 unit 1X STAT IV ; Start 12/23/18 at 05:58; Stop 12/23/18 at 05:59; Status UNV Heparin Sodium/ Dextrose 500 ml @ 0 mls/hr CONT PRN IV SEE I/O RECORD; Start 12/23/18 at 06:00; Status UNV Heparin Sodium (Porcine) (Heparin Sodium) 5,000 unit 1X ONCE IV Last adminis tered on 12/23/18at 06:16; Start 12/23/18 at 06:30; Stop 12/23/18 at 06:31; Status DC Heparin Sodium/ Dextrose 500 ml @ 24 mls/hr CONT PRN PRN IV DVT Last administered on 12/25/18at 18:27; Start 12/23/18 at 06:30 Heparin Sodium (Porcine) (Heparin Sodium) 3,050 unit PRN Q6HRS PRN IV FOR UFH LEVEL LESS THAN 0.2 Last administered on 12/26/18at 04:23; Start 12/23/18 at 06:15 Heparin Sodium (Porcine) (Heparin Sodium) 1,550 unit PRN Q6HRS PRN IV FOR UFH LEVEL 0.2 - 0.29; Start 12/23/18 at 06:15 Propofol 20 ml @ As Directed STK-MED ONCE IV ; Start 12/23/18 at 06:28; Stop 12/23/18 at 06:28; Status DC Lidocaine HCl (Lidocaine Pf 2% Vial) 5 ml STK-MED ONCE .ROUTE ; Start 12/23/18 at 06:28; Stop 12/23/18 at 06:28; Status DC Fentanyl Citrate (Fentanyl 2ml Vial) 100 mcg STK-MED ONCE .ROUTE ; Start 12/23/18 at 06:28; Stop 12/23/18 at 06:28; Status DC Rocuronium Jackson (Zemuron) 50 mg STK-MED ONCE .ROUTE ; Start 12/23/18 at 06:28; Stop 12/23/18 at 06:28; Status DC Heparin Sodium (Porcine) 5000 unit/Sodium Chloride 505 ml @ 505 mls/hr 1X ONCE IRR ; Start 12/23/18 at 07:30; Stop 12/23/18 at 08:29; Status DC Cefazolin Sodium 1 gm/Sodium Chloride 500 ml @ 500 mls/hr 1X ONCE IRR Last administered on 12/23/18at 08:33; Start 12/23/18 at 07:30; Stop 12/23/18 at 08:29; Status DC Lidocaine HCl 16 ml/Sodium Bicarbonate 4 meq/ Miscellaneous 20 ml @ 20 mls/hr 1X ONCE ID Last administered on 12/23/18at 08:33; Start 12/23/18 at 07:30; Stop 12/23/18 at 08:29; Status DC Ondansetron HCl (Zofran) 4 mg PRN Q6HRS PRN IV NAUSEA/VOMITING; Start 12/23/18 at 07:30; Stop 12/24/18 at 07:29; Status DC Fentanyl Citrate (Fentanyl 2ml Vial) 25 mcg PRN Q5MIN PRN IV MILD PAIN 1-3; Start 12/23/18 at 07:30; Stop 12/24/18 at 07:29; Status DC Fentanyl Citrate (Fentanyl 2ml Vial) 50 mcg PRN Q5MIN PRN IV MODERATE TO SEVERE PAIN; Start 12/23/18 at 07:30; Stop 12/24/18 at 07:29; Status DC Morphine Sulfate (Morphine Sulfate) 1 mg PRN Q10MIN PRN IV SEVERE PAIN 7-10; Start 12/23/18 at 07:30; Stop 12/24/18 at 07:29; Status DC Ringer's Solution 1,000 ml @ 30 mls/hr Q24H IV ; Start 12/23/18 at 07:21; Stop 12/23/18 at 19:20; Status DC Lidocaine HCl (Xylocaine-Mpf 1% 2ml Vial) 2 ml PRN 1X PRN ID PRIOR TO IV START; Start 12/23/18 at 07:30; Stop 12/24/18 at 07:29; Status DC Hydromorphone HCl (Dilaudid) 0.5 mg PRN Q10MIN PRN IV SEV PAIN, Second choice; Start 12/23/18 at 07:30; Stop 12/24/18 at 07:29; Status DC Prochlorperazine Edisylate (Compazine) 5 mg PACU PRN PRN IV NAUSEA, MRX1; Start 12/23/18 at 07:30; Stop 12/24/18 at 07:29; Status DC Succinylcholine Chloride (Anectine) 200 mg STK-MED ONCE .ROUTE ; Start 12/23/18 at 07:45; Stop 12/23/18 at 07:46; Status DC Fentanyl Citrate (Fentanyl 2ml Vial) 100 mcg STK-MED ONCE .ROUTE ; Start 12/23/18 at 08:24; Stop 12/23/18 at 08:24; Status DC Labetalol HCl (Normodyne Iv Push) 10 mg 1X ONCE IVP ; Start 12/23/18 at 08:30; Stop 12/23/18 at 08:31; Status DC Phenylephrine HCl (Cheko-Synephrine Inj) 10 mg STK-MED ONCE .ROUTE ; Start 12/23/18 at 08:48; Stop 12/23/18 at 08:48; Status DC Iohexol (Omnipaque 300 Mg/ml) 50 ml STK-MED ONCE .ROUTE Last administered on 12/23/18at 08:33; Start 12/23/18 at 09:05; Stop 12/23/18 at 09:05; Status DC Hydrocortisone Sodium Succinate (Solu-CORTEF) 100 mg STK-MED ONCE .ROUTE ; S tart 12/23/18 at 09:06; Stop 12/23/18 at 09:06; Status DC Dexamethasone Sodium Phosphate (Decadron) 4 mg STK-MED ONCE .ROUTE ; Start 12/23/18 at 09:06; Stop 12/23/18 at 09:06; Status DC Ondansetron HCl (Zofran) 4 mg STK-MED ONCE .ROUTE ; Start 12/23/18 at 09:06; Stop 12/23/18 at 09:06; Status DC Famotidine (Pepcid Vial) 20 mg STK-MED ONCE .ROUTE ; Start 12/23/18 at 09:06; Stop 12/23/18 at 09:07; Status DC Neostigmine Methylsulfate (Neostigmine Methylsulfate) 5 mg STK-MED ONCE .ROUTE ; Start 12/23/18 at 09:10; Stop 12/23/18 at 09:10; Status DC Glycopyrrolate (Robinul) 1 mg STK-MED ONCE .ROUTE ; Start 12/23/18 at 09:10; Stop 12/23/18 at 09:11; Status DC Heparin Sodium (Porcine) (Heparin Sodium) 10,000 unit STK-MED ONCE .ROUTE ; Start 12/23/18 at 09:23; Stop 12/23/18 at 09:23; Status DC Iohexol (Omnipaque 300 Mg/ml) 50 ml STK-MED ONCE .ROUTE Last administered on 12/23/18at 08:33; Start 12/23/18 at 09:28; Stop 12/23/18 at 09:28; Status DC Sevoflurane (Ultane) 90 ml STK-MED ONCE IH ; Start 12/23/18 at 09:44; Stop 12/23/18 at 09:44; Status DC Hydrocortisone Sodium Succinate (Solu-CORTEF) 100 mg 1X ONCE IV ; Start 12/23/18 at 11:00; Stop 12/23/18 at 11:15; Status DC Labetalol HCl (Normodyne Iv Push) 5 mg PRN Q10MIN PRN IVP HYPERTENSION Last administered on 12/23/18at 11:24; Start 12/23/18 at 11:30; Stop 12/25/18 at 10:27; Status DC Potassium Chloride/Dextrose/ Sod Cl 1,000 ml @ 125 mls/hr Q8H IV Last administered on 12/24/18at 08:24; Start 12/23/18 at 12:00; Stop 12/24/18 at 09:51; Status DC Potassium Chloride/Dextrose/ Sod Cl 1,000 ml @ 125 mls/hr Q8H IV Last administered on 12/25/18at 06:44; Start 12/24/18 at 10:30; Stop 12/25/18 at 10:27; Status DC Clopidogrel Bisulfate (Plavix) 75 mg 1X ONCE PO ; Start 12/25/18 at 09:15; Stop 12/25/18 at 09:16; Status DC Amlodipine Besylate (Norvasc) 5 mg DAILY PO Last administered on 12/25/18at 11:40; Start 12/25/18 at 12:00 Atorvastatin Calcium (Lipitor) 20 mg QHS PO Last administered on 12/25/18at 21:29; Start 12/25/18 at 21:00 Metoprolol Succinate (Toprol Xl) 25 mg DAILY PO Last administered on 12/25/18at 11:40; Start 12/25/18 at 11:00 Acetaminophen (Tylenol) 650 mg PRN Q6HRS PRN PO MILD PAIN / TEMP; Start 12/25/18 at 10:30 Sodium Chloride 1,000 ml @ 75 mls/hr [id number] IV Last administered on 12/26/18at 04:17; Start 12/25/18 at 10:30 Acetaminophen/ Hydrocodone Bitart (Lortab 5/325) 1 tab PRN Q4HRS PRN PO PAIN; Start 12/25/18 at 10:45 Febuxostat (Uloric) 40 mg DAILY PO ; Start 12/26/18 at 09:00 Clopidogrel Bisulfate (Plavix) 75 mg DAILYWBKFT PO ; Start 12/26/18 at 08:00 Warfarin Sodium (Coumadin Per Pharmacy) 1 each PRN DAILY PRN MC SEE COMMENTS Last administered on 12/26/18at 09:11; Start 12/26/18 at 08:00 Warfarin Sodium (Coumadin) 4 mg 1X WARF ONCE PO ; Start 12/25/18 at 16:47; Stop 12/25/18 at 16:48; Status DC Amoxicillin/ Clavulanate Potassium (Augmentin 875/ 125mg) 1 tab BID PO ; Start 12/26/18 at 09:00 Lactobacillus Rhamnosus (Culturelle) 1 cap BID PO ; Start 12/26/18 at 12:00 Active Scripts Active Reported Losartan Potassium 100 Mg Tablet 100 Mg PO DAILY Multi-Vitamin Daily (Multivitamin) 1 Each Tablet 1 Tab PO DAILY 30 Days Coumadin (Warfarin Sodium) 4 Mg Tablet 3.5 Mg PO DAILY Atorvastatin Calcium 20 Mg Tablet 1 Tab PO DAILY Toprol Xl (Metoprolol Succinate) 50 Mg Tab.er.24h 25 Mg PO DAILY Amlodipine Besylate 10 Mg Tablet 10 Mg PO DAILY Uloric (Febuxostat) 40 Mg Tablet 1 Tab PO DAILY Detrol La (Tolterodine Tartrate) 4 Mg Cap.er.24h 1 Cap PO DAILY Vitals/I & O Vital Sign - Last 24 Hours 12/25/18 12/25/18 12/25/18 12/25/18 11:00 11:40 11:40 15:00 Temp 97.6 98.0 97.6 98.0 Pulse 92 95 107 88 Resp 18 18 B/P (MAP) 185/85 (118) 185/85 185/85 163/77 (105) Pulse Ox 97 97 O2 Delivery Room Air Room Air 12/25/18 12/25/18 12/25/18 12/25/18 19:32 19:35 23:26 23:52 Temp 98.6 98.0 98.6 98.0 Pulse 83 107 107 Resp 18 18 B/P (MAP) 151/70 (97) 187/93 (124) 187/93 Pulse Ox 100 97 O2 Delivery Room Air Room Air Room Air 12/26/18 12/26/18 12/26/18 02:00 07:00 07:56 Temp 98.5 98.5 Pulse 107 95 B/P (MAP) 159/72 (101) 171/81 (111) Pulse Ox 97 O2 Delivery Room Air Room Air Intake and Output 12/25/18 12/25/18 12/26/18 15:00 23:00 07:00 Intake Total 360 ml 360 ml Output Total 650 ml 1026 ml Balance -290 ml -666 ml ERIKA NELSON MD Dec 26, 2018 09:49
[2018-12-26] MEDS: CLOPIDOGREL BISULFATE 75 MG TABLET PO SCH (10:07)
[2018-12-26] MEDS: FEBUXOSTAT 40 MG TABLET PO SCH (10:07)
[2018-12-26] MEDS: AMOXICILLIN/K CLAV 875/125MG TABLET. PO SCH ×2 (10:08→22:09)
[2018-12-26] MEDS: amLODIPine BESYLATE 5 MG TABLET PO SCH (10:08)
[2018-12-26] MEDS: METOPROLOL SUCC 24HR ER 25 MG TAB.ER.24H. PO SCH (10:09)
[2018-12-26] MEDS: DICLOFENAC SODIUM 1% TOPICAL GEL 100GM TUBE. TP SCH ×4 (10:11→22:10)
[2018-12-26] MEDS ORDERED: amLODIPine BESYLATE 5 MG TABLET PO ONE ×2 (10:30→16:15)
--- NOTE | 2018-12-26 10:30 | PDOC ---
PROGRESS NOTES Subjective Subjective feels better. tolerated clear liquids. had a loose stool. lab reviewed. Objective Objective Vital Signs Date Time Temp Pulse Resp B/P (MAP) Pulse Ox O2 Delivery O2 Flow Rate FiO2 12/26/18 10:09 106 176/79 12/26/18 07:56 Room Air 12/26/18 07:00 98.5 97 98.5 12/25/18 23:26 18 12/24/18 15:00 4.0 Intake and Output 12/26/18 07:00 Intake Total 720 ml Output Total 1676 ml Balance -956 ml Intake Oral 720 ml Output Urine Total 1575 ml Stool Total 101 ml Physical Exam Abdomen: Normal bowel sounds, Soft, No tenderness Heart: Normal S1, Normal S2 Extremities: No edema, Other (DP pulse 2 plus on left) General: Alert HEENT: Atraumatic Lungs: Clear to auscultation Neuro: Normal speech Psych/Mental Status: Mental status NL Skin: No rashes Assessment Assessment Problemspartial small-bowel obstruction resolved 2. Acute kidney injury better top of chronic kidney disease stage 3. baseline creatinine 1.4. 3. Hypertension.bp high 4. Hyperlipidemia. 5. Chronic atrial fibrillation with a slightly increased VR. osteoarthritis left knee treated with steroid injection 6. Chronic gout. 7. History of a left nephrectomy. left popliteal and left iliac thromboembolectomy with left iliac artery angioplasty and stent mild leukocytosis resolved Medical Problems: (1) Epigastric pain Status: Acute (2) Epigastric pain Status: Acute (3) Nausea Status: Acute (4) Nausea Status: Acute (5) Small bowel obstruction Status: Acute Plan Plan of Care d/c sethi advance to full liquids start coumadin. target inr 2 to 3 start plavix increase amlodipine continue iv heparin continue augmentin per ID decrease iv fluids physical therapy Comment Review of Relevant I have reviewed the following items rubia (where applicable) has been applied. Labs Laboratory Tests Test 12/24/18 11:58 12/25/18 04:55 12/25/18 07:28 12/25/18 07:29 Glucose (Fingerstick) 108 mg/dL (70-99) 54 mg/dL (70-99) 94 mg/dL (70-99) White Blood Count 10.9 x10^3/uL (4.0-11.0) Red Blood Count 3.74 x10^6/uL (3.50-5.40) Hemoglobin 11.4 g/dL (12.0-15.5) Hematocrit 35.5 % (36.0-47.0) Mean Corpuscular Volume 95 fL (79-100) Mean Corpuscular Hemoglobin 30 pg (25-35) Mean Corpuscular Hemoglobin Concent 32 g/dL (31-37) Red Cell Distribution Width 14.0 % (11.5-14.5) Platelet Count 198 x10^3/uL (140-400) Neutrophils (%) (Auto) 82 % (31-73) Lymphocytes (%) (Auto) 10 % (24-48) Monocytes (%) (Auto) 8 % (0-9) Eosinophils (%) (Auto) 0 % (0-3) Basophils (%) (Auto) 0 % (0-3) Neutrophils # (Auto) 8.9 x10^3/uL (1.8-7.7) Lymphocytes # (Auto) 1.1 x10^3/uL (1.0-4.8) Monocytes # (Auto) 0.8 x10^3/uL (0.0-1.1) Eosinophils # (Auto) 0.0 x10^3/uL (0.0-0.7) Basophils # (Auto) 0.0 x10^3/uL (0.0-0.2) Heparin Anti-Xa Act, Unfractionated 0.35 IU/mL (0.30-0.70) Sodium Level 145 mmol/L (136-145) Potassium Level 4.7 mmol/L (3.5-5.1) Chloride Level 111 mmol/L (98-107) Carbon Dioxide Level 21 mmol/L (21-32) Anion Gap 13 (6-14) Blood Urea Nitrogen 35 mg/dL (7-20) Creatinine 2.0 mg/dL (0.6-1.0) Estimated GFR (Cockcroft-Gault) 28.9 Glucose Level 119 mg/dL (70-99) Calcium Level 8.5 mg/dL (8.5-10.1) Magnesium Level 1.5 mg/dL (1.8-2.4) Test 12/25/18 11:45 12/26/18 02:45 Glucose (Fingerstick) 99 mg/dL (70-99) White Blood Count 9.1 x10^3/uL (4.0-11.0) Red Blood Count 3.44 x10^6/uL (3.50-5.40) Hemoglobin 10.6 g/dL (12.0-15.5) Hematocrit 32.4 % (36.0-47.0) Mean Corpuscular Volume 94 fL (79-100) Mean Corpuscular Hemoglobin 31 pg (25-35) Mean Corpuscular Hemoglobin Concent 33 g/dL (31-37) Red Cell Distribution Width 14.0 % (11.5-14.5) Platelet Count 208 x10^3/uL (140-400) Neutrophils (%) (Auto) 77 % (31-73) Lymphocytes (%) (Auto) 16 % (24-48) Monocytes (%) (Auto) 7 % (0-9) Eosinophils (%) (Auto) 0 % (0-3) Basophils (%) (Auto) 0 % (0-3) Neutrophils # (Auto) 7.0 x10^3/uL (1.8-7.7) Lymphocytes # (Auto) 1.4 x10^3/uL (1.0-4.8) Monocytes # (Auto) 0.7 x10^3/uL (0.0-1.1) Eosinophils # (Auto) 0.0 x10^3/uL (0.0-0.7) Basophils # (Auto) 0.0 x10^3/uL (0.0-0.2) Prothrombin Time 16.0 SEC (11.7-14.0) Prothromb Time International Ratio 1.3 (0.8-1.1) Heparin Anti-Xa Act, Unfractionated 0.16 IU/mL (0.30-0.70) Sodium Level 143 mmol/L (136-145) Potassium Level 3.8 mmol/L (3.5-5.1) Chloride Level 110 mmol/L (98-107) Carbon Dioxide Level 23 mmol/L (21-32) Anion Gap 10 (6-14) Blood Urea Nitrogen 26 mg/dL (7-20) Creatinine 1.8 mg/dL (0.6-1.0) Estimated GFR (Cockcroft-Gault) 32.7 Glucose Level 88 mg/dL (70-99) Calcium Level 8.0 mg/dL (8.5-10.1) Laboratory Tests Test 12/25/18 11:45 12/26/18 02:45 Glucose (Fingerstick) 99 mg/dL (70-99) White Blood Count 9.1 x10^3/uL (4.0-11.0) Red Blood Count 3.44 x10^6/uL (3.50-5.40) Hemoglobin 10.6 g/dL (12.0-15.5) Hematocrit 32.4 % (36.0-47.0) Mean Corpuscular Volume 94 fL (79-100) Mean Corpuscular Hemoglobin 31 pg (25-35) Mean Corpuscular Hemoglobin Concent 33 g/dL (31-37) Red Cell Distribution Width 14.0 % (11.5-14.5) Platelet Count 208 x10^3/uL (140-400) Neutrophils (%) (Auto) 77 % (31-73) Lymphocytes (%) (Auto) 16 % (24-48) Monocytes (%) (Auto) 7 % (0-9) Eosinophils (%) (Auto) 0 % (0-3) Basophils (%) (Auto) 0 % (0-3) Neutrophils # (Auto) 7.0 x10^3/uL (1.8-7.7) Lymphocytes # (Auto) 1.4 x10^3/uL (1.0-4.8) Monocytes # (Auto) 0.7 x10^3/uL (0.0-1.1) Eosinophils # (Auto) 0.0 x10^3/uL (0.0-0.7) Basophils # (Auto) 0.0 x10^3/uL (0.0-0.2) Prothrombin Time 16.0 SEC (11.7-14.0) Prothromb Time International Ratio 1.3 (0.8-1.1) Heparin Anti-Xa Act, Unfractionated 0.16 IU/mL (0.30-0.70) Sodium Level 143 mmol/L (136-145) Potassium Level 3.8 mmol/L (3.5-5.1) Chloride Level 110 mmol/L (98-107) Carbon Dioxide Level 23 mmol/L (21-32) Anion Gap 10 (6-14) Blood Urea Nitrogen 26 mg/dL (7-20) Creatinine 1.8 mg/dL (0.6-1.0) Estimated GFR (Cockcroft-Gault) 32.7 Glucose Level 88 mg/dL (70-99) Calcium Level 8.0 mg/dL (8.5-10.1) Microbiology 12/18/18 Urine Culture - Final, Complete 12/18/18 Urine Culture Result 1 (ALEJANDRINA) - Final, Complete Medications Current Medications Ondansetron HCl (Zofran) 4 mg 1X ONCE IM ; Start 12/16/18 at 09:30; Stop 12/16/18 at 09:31; Status DC Fentanyl Citrate (Fentanyl 2ml Vial) 75 mcg 1X ONCE IVP Last administered on 12/16/18at 09:46; Start 12/16/18 at 09:45; Stop 12/16/18 at 09:46; Status DC Ondansetron HCl (Zofran) 4 mg 1X ONCE IVP Last administered on 12/16/18at 09:51; Start 12/16/18 at 10:00; Stop 12/16/18 at 10:01; Status DC Sodium Chloride 1,000 ml @ 1,000 mls/hr 1X ONCE IV Last administered on 12/16/18at 10:40; Start 12/16/18 at 10:15; Stop 12/16/18 at 11:14; Status DC Clonidine HCl (Catapres) 0.1 mg 1X ONCE PO Last administered on 12/16/18at 15:12; Start 12/16/18 at 14:15; Stop 12/16/18 at 14:16; Status DC Fentanyl Citrate (Fentanyl 2ml Vial) 75 mcg 1X ONCE IVP ; Start 12/16/18 at 15:15; Stop 12/16/18 at 15:16; Status DC Ondansetron HCl (Zofran) 4 mg PRN Q8HRS PRN IV NAUSEA/VOMITING; Start 12/16/18 at 15:15; Stop 12/16/18 at 17:10; Status DC Fentanyl Citrate (Fentanyl 2ml Vial) 50 mcg PRN Q1HR PRN IV PAIN Last administered on 12/17/18at 07:28; Start 12/16/18 at 15:15; Stop 12/17/18 at 15:14; Status DC Sodium Chloride 1,000 ml @ 125 mls/hr Q8H IV ; Start 12/16/18 at 15:10; Stop 12/16/18 at 17:26; Status DC Acetaminophen (Tylenol) 650 mg PRN Q4HRS PRN PO FEVER; Start 12/16/18 at 15:15; Stop 12/17/18 at 15:14; Status DC Potassium Chloride/Dextrose/ Sod Cl 1,000 ml @ 100 mls/hr Q10H IV Last administered on 12/18/18at 01:27; Start 12/16/18 at 17:00; Stop 12/18/18 at 10:34; Status DC Ondansetron HCl (Zofran) 4 mg PRN Q6HRS PRN IVP NAUSEA/VOMITING Last administered on 12/18/18at 21:17; Start 12/16/18 at 17:00 Hydralazine HCl (Apresoline Inj) 10 mg PRN Q6HRS PRN IVP ELEVATED BP, SEE COMMENTS Last administered on 12/25/18at 23:52; Start 12/17/18 at 01:00 Enoxaparin Sodium (Lovenox 100mg Syringe) 100 mg DAILY SQ Last administered on 12/17/18at 12:49; Start 12/17/18 at 10:30; Stop 12/19/18 at 09:14; Status DC Info (Anti-Coagulation Monitoring By Pharmacy) 1 each PRN DAILY PRN MC SEE COMMENTS Last administered on 12/26/18at 09:10; Start 12/17/18 at 10:15 Pantoprazole Sodium (PROTONIX VIAL for IV PUSH) 40 mg DAILYAC IVP Last administered on 12/25/18at 06:23; Start 12/17/18 at 10:30; Stop 12/25/18 at 10:27; Status DC Acetaminophen (Tylenol Supp) 650 mg PRN Q6HRS PRN MS HEADACHE / TEMP; Start 12/17/18 at 10:00; Stop 12/25/18 at 10:27; Status DC Fentanyl Citrate (Fentanyl 2ml Vial) 50 mcg PRN Q4HRS PRN IVP PAIN Last administered on 12/23/18at 22:01; Start 12/17/18 at 10:00 Insulin Human Lispro (HumaLOG) 0-6 UNITS BG 300-399... Q6HRS SQ ; Start 12/17/18 at 12:00; Stop 12/17/18 at 10:24; Status DC Ceftriaxone Sodium (Rocephin) 1 gm Q24H IVP Last administered on 12/21/18at 12:42; Start 12/18/18 at 11:00; Stop 12/22/18 at 10:07; Status DC Dextrose/Sodium Chloride 1,000 ml @ 150 mls/hr Q6H40M IV Last administered on 12/20/18at 03:00; Start 12/18/18 at 10:30; Stop 12/20/18 at 09:52; Status DC Bupivacaine HCl/ Epinephrine Bitart (Sensorcain-Epi 0.5%-1:936756 Mpf) 30 ml 1X ONCE INJ ; Start 12/18/18 at 15:00; Stop 12/18/18 at 15:01; Status Cancel Bupivacaine HCl/ Epinephrine Bitart (Sensorcain-Epi 0.5%-1:126004 Mpf) 30 ml 1X ONCE INJ Last administered on 12/19/18at 06:00; Start 12/19/18 at 06:00; Stop 12/19/18 at 06:01; Status DC Ondansetron HCl (Zofran) 4 mg PRN Q6HRS PRN IV NAUSEA/VOMITING; Start 12/19/18 at 07:00; Stop 12/20/18 at 06:59; Status DC Fentanyl Citrate (Fentanyl 2ml Vial) 25 mcg PRN Q5MIN PRN IV MILD PAIN 1-3; Start 12/19/18 at 07:00; Stop 12/20/18 at 06:59; Status DC Fentanyl Citrate (Fentanyl 2ml Vial) 50 mcg PRN Q5MIN PRN IV MODERATE TO SEVERE PAIN; Start 12/19/18 at 07:00; Stop 12/20/18 at 06:59; Status DC Morphine Sulfate (Morphine Sulfate) 1 mg PRN Q10MIN PRN IV SEVERE PAIN 7-10; Start 12/19/18 at 07:00; Stop 12/20/18 at 06:59; Status DC Ringer's Solution 1,000 ml @ 30 mls/hr Q24H IV ; Start 12/19/18 at 07:00; Stop 12/19/18 at 18:59; Status DC Lidocaine HCl (Xylocaine-Mpf 1% 2ml Vial) 2 ml PRN 1X PRN ID PRIOR TO IV START; Start 12/19/18 at 07:00; Stop 12/20/18 at 06:59; Status DC Hydromorphone HCl (Dilaudid) 0.5 mg PRN Q10MIN PRN IV SEV PAIN, Second choice; Start 12/19/18 at 07:00; Stop 12/20/18 at 06:59; Status DC Prochlorperazine Edisylate (Compazine) 5 mg PACU PRN PRN IV NAUSEA, MRX1; Start 12/19/18 at 07:00; Stop 12/20/18 at 06:59; Status DC Phytonadione 10 mg/Dextrose 51 ml @ 102 mls/hr 1X ONCE IV Last administered on 12/19/18at 10:37; Start 12/19/18 at 09:15; Stop 12/19/18 at 09:44; Status DC Potassium Chloride/Dextrose/ Sod Cl 1,000 ml @ 150 mls/hr Q6H40M IV Last administered on 12/21/18at 03:26; Start 12/20/18 at 11:00; Stop 12/21/18 at 11 :06; Status DC Lidocaine HCl (Lidocaine Pf 2% Vial) 5 ml STK-MED ONCE .ROUTE ; Start 12/20/18 at 11:14; Stop 12/20/18 at 11:14; Status DC Neostigmine Methylsulfate (Bloxiverz) 10 mg STK-MED ONCE .ROUTE ; Start 12/20/18 at 11:16; Stop 12/20/18 at 11:17; Status DC Rocuronium Colony (Zemuron) 50 mg STK-MED ONCE .ROUTE ; Start 12/20/18 at 11:17; Stop 12/20/18 at 11:17; Status DC Fentanyl Citrate (Fentanyl 2ml Vial) 100 mcg STK-MED ONCE .ROUTE ; Start 12/20/18 at 11:17; Stop 12/20/18 at 11:18; Status DC Midazolam HCl (Versed) 2 mg STK-MED ONCE .ROUTE ; Start 12/20/18 at 11:17; Stop 12/20/18 at 11:18; Status DC Glycopyrrolate (Robinul) 1 mg STK-MED ONCE .ROUTE ; Start 12/20/18 at 11:17; Stop 12/20/18 at 11:18; Status DC Succinylcholine Chloride (Anectine) 200 mg STK-MED ONCE .ROUTE ; Start 12/20/18 at 11:21; Stop 12/20/18 at 11:21; Status DC Diclofenac Sodium (Voltaren) 1 marilyn QID TP Last administered on 12/26/18at 10:11; Start 12/21/18 at 13:00 Dextrose/Sodium Chloride 1,000 ml @ 125 mls/hr Q8H IV Last administered on 12/23/18at 03:30; Start 12/21/18 at 11:15; Stop 12/23/18 at 11:59; Status DC Methylprednisolone Acetate (DEPO-Medrol 40MG VIAL) 40 mg 1X ONCE IM Last administered on 12/21/18at 12:00; Start 12/21/18 at 12:00; Stop 12/21/18 at 12:01; Status DC Bupivacaine HCl (Sensorcaine-Mpf 0.25%) 10 ml 1X ONCE IJ Last administered on 12/21/18at 12:00; Start 12/21/18 at 12:00; Stop 12/21/18 at 12:01; Status DC Piperacillin Sod/ Tazobactam Sod 3.375 gm/Sodium Chloride 50 ml @ 100 mls/hr Q6HRS IV Last administered on 12/26/18at 05:37; Start 12/22/18 at 12:00; Stop 12/26/18 at 08:41; Status DC Heparin Sodium/ Dextrose 500 ml @ 32 mls/min CONT PRN IV SEE PROTOCOL; Start 12/22/18 at 14:30; Stop 12/22/18 at 20:12; Status DC Heparin Sodium (Porcine) (Heparin Sodium) 3,050 unit PRN Q6HRS PRN IV FOR UFH LEVEL LESS THAN 0.2; Start 12/22/18 at 14:30; Stop 12/22/18 at 20:10; Status DC Heparin Sodium (Porcine) (Heparin Sodium) 1,550 unit PRN Q6HRS PRN IV FOR UFH LEVEL 0.2 - 0.29; Start 12/22/18 at 14:30; Stop 12/22/18 at 20:10; Status DC Heparin Sodium (Porcine) (Heparin Sodium) 5,000 unit Q8HRS SQ Last administered on 12/22/18at 22:11; Start 12/22/18 at 22:00; Stop 12/23/18 at 06:10; Status DC Fentanyl Citrate (Fentanyl 2ml Vial) 25 mcg 1X ONCE IVP Last administered on 12/23/18at 03:21; Start 12/23/18 at 03:30; Stop 12/23/18 at 03:31; Status DC Heparin Sodium (Porcine) (Heparin Sodium) 5,000 unit 1X STAT IV ; Start 12/23/18 at 05:58; Stop 12/23/18 at 05:59; Status UNV Heparin Sodium/ Dextrose 500 ml @ 0 mls/hr CONT PRN IV SEE I/O RECORD; Start 12/23/18 at 06:00; Status UNV Heparin Sodium (Porcine) (Heparin Sodium) 5,000 unit 1X ONCE IV Last administered on 12/23/18at 06:16; Start 12/23/18 at 06:30; Stop 12/23/18 at 06:31; Status DC Heparin Sodium/ Dextrose 500 ml @ 24 mls/hr CONT PRN PRN IV DVT Last administered on 12/25/18at 18:27; Start 12/23/18 at 06:30 Heparin Sodium (Porcine) (Heparin Sodium) 3,050 unit PRN Q6HRS PRN IV FOR UFH LEVEL LESS THAN 0.2 Last administered on 12/26/18at 04:23; Start 12/23/18 at 06:15 Heparin Sodium (Porcine) (Heparin Sodium) 1,550 unit PRN Q6HRS PRN IV FOR UFH LEVEL 0.2 - 0.29; Start 12/23/18 at 06:15 Propofol 20 ml @ As Directed STK-MED ONCE IV ; Start 12/23/18 at 06:28; Stop 12/23/18 at 06:28; Status DC Lidocaine HCl (Lidocaine Pf 2% Vial) 5 ml STK-MED ONCE .ROUTE ; Start 12/23/18 at 06:28; Stop 12/23/18 at 06:28; Status DC Fentanyl Citrate (Fentanyl 2ml Vial) 100 mcg STK-MED ONCE .ROUTE ; Start 12/23/18 at 06:28; Stop 12/23/18 at 06:28; Status DC Rocuronium Colony (Zemuron) 50 mg STK-MED ONCE .ROUTE ; Start 12/23/18 at 06:28; Stop 12/23/18 at 06:28; Status DC Heparin Sodium (Porcine) 5000 unit/Sodium Chloride 505 ml @ 505 mls/hr 1X ONCE IRR ; Start 12/23/18 at 07:30; Stop 12/23/18 at 08:29; Status DC Cefazolin Sodium 1 gm/Sodium Chloride 500 ml @ 500 mls/hr 1X ONCE IRR Last ad ministered on 12/23/18at 08:33; Start 12/23/18 at 07:30; Stop 12/23/18 at 08:29; Status DC Lidocaine HCl 16 ml/Sodium Bicarbonate 4 meq/ Miscellaneous 20 ml @ 20 mls/hr 1X ONCE ID Last administered on 12/23/18at 08:33; Start 12/23/18 at 07:30; Stop 12/23/18 at 08:29; Status DC Ondansetron HCl (Zofran) 4 mg PRN Q6HRS PRN IV NAUSEA/VOMITING; Start 12/23/18 at 07:30; Stop 12/24/18 at 07:29; Status DC Fentanyl Citrate (Fentanyl 2ml Vial) 25 mcg PRN Q5MIN PRN IV MILD PAIN 1-3; Start 12/23/18 at 07:30; Stop 12/24/18 at 07:29; Status DC Fentanyl Citrate (Fentanyl 2ml Vial) 50 mcg PRN Q5MIN PRN IV MODERATE TO SEVERE PAIN; Start 12/23/18 at 07:30; Stop 12/24/18 at 07:29; Status DC Morphine Sulfate (Morphine Sulfate) 1 mg PRN Q10MIN PRN IV SEVERE PAIN 7-10; Start 12/23/18 at 07:30; Stop 12/24/18 at 07:29; Status DC Ringer's Solution 1,000 ml @ 30 mls/hr Q24H IV ; Start 12/23/18 at 07:21; Stop 12/23/18 at 19:20; Status DC Lidocaine HCl (Xylocaine-Mpf 1% 2ml Vial) 2 ml PRN 1X PRN ID PRIOR TO IV START; Start 12/23/18 at 07:30; Stop 12/24/18 at 07:29; Status DC Hydromorphone HCl (Dilaudid) 0.5 mg PRN Q10MIN PRN IV SEV PAIN, Second choice; Start 12/23/18 at 07:30; Stop 12/24/18 at 07:29; Status DC Prochlorperazine Edisylate (Compazine) 5 mg PACU PRN PRN IV NAUSEA, MRX1; Start 12/23/18 at 07:30; Stop 12/24/18 at 07:29; Status DC Succinylcholine Chloride (Anectine) 200 mg STK-MED ONCE .ROUTE ; Start 12/23/18 at 07:45; Stop 12/23/18 at 07:46; Status DC Fentanyl Citrate (Fentanyl 2ml Vial) 100 mcg STK-MED ONCE .ROUTE ; Start 12/23/18 at 08:24; Stop 12/23/18 at 08:24; Status DC Labetalol HCl (Normodyne Iv Push) 10 mg 1X ONCE IVP ; Start 12/23/18 at 08:30; Stop 12/23/18 at 08:31; Status DC Phenylephrine HCl (Cheko-Synephrine Inj) 10 mg STK-MED ONCE .ROUTE ; Start 12/23/18 at 08:48; Stop 12/23/18 at 08:48; Status DC Iohexol (Omnipaque 300 Mg/ml) 50 ml STK-MED ONCE .ROUTE Last administered on 12/23/18at 08:33; Start 12/23/18 at 09:05; Stop 12/23/18 at 09:05; Status DC Hydrocortisone Sodium Succinate (Solu-CORTEF) 100 mg STK-MED ONCE .ROUTE ; Start 12/23/18 at 09:06; Stop 12/23/18 at 09:06; Status DC Dexamethasone Sodium Phosphate (Decadron) 4 mg STK-MED ONCE .ROUTE ; Start 12/23/18 at 09:06; Stop 12/23/18 at 09:06; Status DC Ondansetron HCl (Zofran) 4 mg STK-MED ONCE .ROUTE ; Start 12/23/18 at 09:06; Stop 12/23/18 at 09:06; Status DC Famotidine (Pepcid Vial) 20 mg STK-MED ONCE .ROUTE ; Start 12/23/18 at 09:06; Stop 12/23/18 at 09:07; Status DC Neostigmine Methylsulfate (Neostigmine Methylsulfate) 5 mg STK-MED ONCE .ROUTE ; Start 12/23/18 at 09:10; Stop 12/23/18 at 09:10; Status DC Glycopyrrolate (Robinul) 1 mg STK-MED ONCE .ROUTE ; Start 12/23/18 at 09:10; Stop 12/23/18 at 09:11; Status DC Heparin Sodium (Porcine) (Heparin Sodium) 10,000 unit STK-MED ONCE .ROUTE ; Start 12/23/18 at 09:23; Stop 12/23/18 at 09:23; Status DC Iohexol (Omnipaque 300 Mg/ml) 50 ml STK-MED ONCE .ROUTE Last administered on 12/23/18at 08:33; Start 12/23/18 at 09:28; Stop 12/23/18 at 09:28; Status DC Sevoflurane (Ultane) 90 ml STK-MED ONCE IH ; Start 12/23/18 at 09:44; Stop 12/23/18 at 09:44; Status DC Hydrocortisone Sodium Succinate (Solu-CORTEF) 100 mg 1X ONCE IV ; Start 12/23/18 at 11:00; Stop 12/23/18 at 11:15; Status DC Labetalol HCl (Normodyne Iv Push) 5 mg PRN Q10MIN PRN IVP HYPERTENSION Last administered on 12/23/18at 11:24; Start 12/23/18 at 11:30; Stop 12/25/18 at 10:27; Status DC Potassium Chloride/Dextrose/ Sod Cl 1,000 ml @ 125 mls/hr Q8H IV Last administered on 12/24/18at 08:24; Start 12/23/18 at 12:00; Stop 12/24/18 at 09:51; Status DC Potassium Chloride/Dextrose/ Sod Cl 1,000 ml @ 125 mls/hr Q8H IV Last administered on 12/25/18at 06:44; Start 12/24/18 at 10:30; Stop 12/25/18 at 10:27; Status DC Clopidogrel Bisulfate (Plavix) 75 mg 1X ONCE PO ; Start 12/25/18 at 09:15; Stop 12/25/18 at 09:16; Status DC Amlodipine Besylate (Norvasc) 5 mg DAILY PO Last administered on 12/26/18at 10:08; Start 12/25/18 at 12:00 Atorvastatin Calcium (Lipitor) 20 mg QHS PO Last administered on 12/25/18at 21:29; Start 12/25/18 at 21:00 Metoprolol Succinate (Toprol Xl) 25 mg DAILY PO Last administered on 12/26/18at 10:09; Start 12/25/18 at 11:00 Acetaminophen (Tylenol) 650 mg PRN Q6HRS PRN PO MILD PAIN / TEMP; Start 11/29 10/16 at 10:30 Sodium Chloride 1,000 ml @ 75 mls/hr [id number] IV Last administered on 12/26/18at 04:17; Start 12/25/18 at 10:30 Acetaminophen/ Hydrocodone Bitart (Lortab 5/325) 1 tab PRN Q4HRS PRN PO PAIN; Start 12/25/18 at 10:45 Febuxostat (Uloric) 40 mg DAILY PO Last administered on 12/26/18at 10:07; Start 12/26/18 at 09:00 Clopidogrel Bisulfate (Plavix) 75 mg DAILYWBKFT PO Last administered on 12/26/18at 10:07; Start 12/26/18 at 08:00 Warfarin Sodium (Coumadin Per Pharmacy) 1 each PRN DAILY PRN MC SEE COMMENTS Last administered on 12/26/18at 09:11; Start 12/26/18 at 08:00 Warfarin Sodium (Coumadin) 4 mg 1X WARF ONCE PO ; Start 12/25/18 at 16:47; Stop 12/25/18 at 16:48; Status DC Amoxicillin/ Clavulanate Potassium (Augmentin 875/ 125mg) 1 tab BID PO Last administered on 12/26/18at 10:08; Start 12/26/18 at 09:00 Lactobacillus Rhamnosus (Culturelle) 1 cap BID PO ; Start 12/26/18 at 12:00 Active Scripts Active Reported Losartan Potassium 100 Mg Tablet 100 Mg PO DAILY Multi-Vitamin Daily (Multivitamin) 1 Each Tablet 1 Tab PO DAILY 30 Days Coumadin (Warfarin Sodium) 4 Mg Tablet 3.5 Mg PO DAILY Atorvastatin Calcium 20 Mg Tablet 1 Tab PO DAILY Toprol Xl (Metoprolol Succinate) 50 Mg Tab.er.24h 25 Mg PO DAILY Amlodipine Besylate 10 Mg Tablet 10 Mg PO DAILY Uloric (Febuxostat) 40 Mg Tablet 1 Tab PO DAILY Detrol La (Tolterodine Tartrate) 4 Mg Cap.er.24h 1 Cap PO DAILY Vitals/I & O Vital Sign - Last 24 Hours 12/25/18 12/25/18 12/25/18 12/25/18 11:00 11:40 11:40 15:00 Temp 97.6 98.0 97.6 98.0 Pulse 92 95 107 88 Resp 18 18 B/P (MAP) 185/85 (118) 185/85 185/85 163/77 (105) Pulse Ox 97 97 O2 Delivery Room Air Room Air 12/25/18 12/25/18 12/25/18 12/25/18 19:32 19:35 23:26 23:52 Temp 98.6 98.0 98.6 98.0 Pulse 83 107 107 Resp 18 18 B/P (MAP) 151/70 (97) 187/93 (124) 187/93 Pulse Ox 100 97 O2 Delivery Room Air Room Air Room Air 12/26/18 12/26/18 12/26/18 12/26/18 02:00 07:00 07:56 10:08 Temp 98.5 98.5 Pulse 107 95 94 B/P (MAP) 159/72 (101) 171/81 (111) 176/79 Pulse Ox 97 O2 Delivery Room Air Room Air 12/26/18 10:09 Pulse 106 B/P (MAP) 176/79 Intake and Output 12/25/18 12/25/18 12/26/18 15:00 23:00 07:00 Intake Total 360 ml 360 ml Output Total 650 ml 1026 ml Balance -290 ml -666 ml LAURA CROOKS MD Dec 26, 2018 10:30
[2018-12-26 11:00] VITALS: BP 142/76
--- NOTE | 2018-12-26 11:10 | PDOC ---
SUBJECTIVE ROS States feeling better OBJECTIVE Vital Signs Vital Signs Date Time Temp Pulse Resp B/P (MAP) Pulse Ox O2 Delivery O2 Flow Rate FiO2 12/26/18 10:09 106 176/79 12/26/18 07:56 Room Air 12/26/18 07:00 98.5 97 98.5 12/25/18 23:26 18 I & 0 Intake and Output 12/26/18 06:59 Intake Total 720 ml Output Total 1676 ml Balance -956 ml Intake Oral 720 ml Output Urine Total 1575 ml Stool Total 101 ml PHYSICAL EXAM Physical Exam GEN- NAD HEENT: OM dry , NG tube NECK: supple HEART RRR LUNGS: Clear, Non labored ABDOMEN: Soft, obese. EXTREMITIES: NO LE edema SKIN: No rashes. NEUROLOGICAL: Grossly tory; - Sheldon+, No CVA or SP tenderness DIAGNOSIS/ASSESSMENT Assessment & Plan WILLIAMS - Suspect ATN 2//2 Poor Po intake, Vomiting, SBO , UA unremarkable, Renal US Unremarkable , renal function stable , over the weekend underwent Lt LE Thromboembolectomy and arteriogram E-Lytes Stable, holding losartan Urinary retention Bladder scan with significant PVR- suppportive care, avoid Nephrotoxins, Monitor for JOAQUINA CKD stage 3 - Follows with Dr. Cavanaugh Q 6 months Solitary Kidney - S/P Lt Nephrectomy SBO- No plan for surgery currently , KUB improved per GS NG clamped today Acutely ischemic left leg. s/p Left femoral and Lt Iliac thromboembolectomy., arteriogram HTN- antihypretensives, cardiology managing Chronic atrial fibrillation- Cardiology COMMENT/RELEVANT DATA Meds Current Medications Medications (Trade) Dose Ordered Sig/Nimco Start Time Stop Time Status Last Admin Dose Admin Acetaminophen (Tylenol Supp) 650 mg PRN Q6HRS PRN 12/17/18 10:00 12/25/18 10:27 DC Acetaminophen (Tylenol) 650 mg PRN Q6HRS PRN 12/25/18 10:30 Acetaminophen/ Hydrocodone Bitart (Lortab 5/325) 1 tab PRN Q4HRS PRN 12/25/18 10:45 Amlodipine Besylate (Norvasc) 5 mg 1X ONCE 12/26/18 10:30 12/26/18 10:37 DC Amoxicillin/ Clavulanate Potassium (Augmentin 875/ 125mg) 1 tab BID 12/26/18 09:00 12/26/18 10:08 1 TAB Atorvastatin Calcium (Lipitor) 20 mg QHS 12/25/18 21:00 12/25/18 21:29 20 MG Bupivacaine HCl (Sensorcaine-Mpf 0.25%) 10 ml 1X ONCE 12/21/18 12:00 12/21/18 12:01 DC 12/21/18 12:00 10 ML Bupivacaine HCl/ Epinephrine Bitart (Sensorcain-Epi 0.5%-1:[id number] Mpf) 30 ml 1X ONCE 12/19/18 06:00 12/19/18 06:01 DC 12/19/18 06:00 30 ML Cefazolin Sodium 1 gm/Sodium Chloride 500 ml @ 500 mls/hr 1X ONCE 12/23/18 07:30 12/23/18 08:29 DC 12/23/18 08:33 Ceftriaxone Sodium (Rocephin) 1 gm Q24H 12/18/18 11:00 12/22/18 10:07 DC 12/21/18 12:42 1 GM Clonidine HCl (Catapres) 0.1 mg 1X ONCE 12/16/18 14:15 12/16/18 14:16 DC 12/16/18 15:12 0.1 MG Clopidogrel Bisulfate (Plavix) 75 mg [id number] 12/26/18 08:00 12/26/18 10:07 75 MG Dexamethasone Sodium Phosphate (Decadron) 4 mg STK-MED ONCE 12/23/18 09:06 12/23/18 09:06 DC Dextrose/Sodium Chloride 1,000 ml @ 125 mls/hr Q8H 12/21/18 11:15 12/23/18 11:59 DC 12/23/18 03:30 125 MLS/HR Diclofenac Sodium (Voltaren) 1 marilyn QID 12/21/18 13:00 12/26/18 10:11 1 MARILYN Enoxaparin Sodium (Lovenox 100mg Syringe) 100 mg DAILY 12/17/18 10:30 12/19/18 09:14 DC 12/17/18 12:49 100 MG Famotidine (Pepcid Vial) 20 mg STK-MED ONCE 12/23/18 09:06 12/23/18 09:07 DC Febuxostat (Uloric) 40 mg DAILY 12/26/18 09:00 12/26/18 10:07 40 MG Fentanyl Citrate (Fentanyl 2ml Vial) 100 mcg STK-MED ONCE 12/23/18 08:24 12/23/18 08:24 DC Glycopyrrolate (Robinul) 1 mg STK-MED ONCE 12/23/18 09:10 12/23/18 09:11 DC Heparin Sodium (Porcine) (Heparin Sodium) 10,000 unit STK-MED ONCE 12/23/18 09:23 12/23/18 09:23 DC Heparin Sodium (Porcine) 5000 unit/Sodium Chloride 505 ml @ 505 mls/hr 1X ONCE 12/23/18 07:30 12/23/18 08:29 DC Heparin Sodium/ Dextrose 500 ml @ 24 mls/hr CONT PRN PRN 12/23/18 06:30 12/25/18 18:27 15.5 MLS/HR Hydralazine HCl (Apresoline Inj) 10 mg PRN Q6HRS PRN 12/17/18 01:00 12/25/18 23:52 10 MG Hydrocortisone Sodium Succinate (Solu-CORTEF) 100 mg 1X ONCE 12/23/18 11:00 12/23/18 11:15 DC Hydromorphone HCl (Dilaudid) 0.5 mg PRN Q10MIN PRN 12/23/18 07:30 12/24/18 07:29 DC Info (Anti-Coagulation Monitoring By Pharmacy) 1 each PRN DAILY PRN 12/17/18 10:15 12/26/18 09:10 1 EACH Insulin Human Lispro (HumaLOG) 0-6 UNITS BG 300-399... Q6HRS 12/17/18 12:00 12/17/18 10:24 DC Iohexol (Omnipaque 300 Mg/ml) 50 ml STK-MED ONCE 12/23/18 09:28 12/23/18 09:28 DC 12/23/18 08:33 50 ML Labetalol HCl (Normodyne Iv Push) 5 mg PRN Q10MIN PRN 12/23/18 11:30 12/25/18 10:27 DC 12/23/18 11:24 5 MG Lactobacillus Rhamnosus (Culturelle) 1 cap BID 12/26/18 12:00 Lidocaine HCl (Lidocaine Pf 2% Vial) 5 ml STK-MED ONCE 12/23/18 06:28 12/23/18 06:28 DC Lidocaine HCl (Xylocaine-Mpf 1% 2ml Vial) 2 ml PRN 1X PRN 12/23/18 07:30 12/24/18 07:29 DC Lidocaine HCl 16 ml/Sodium Bicarbonate 4 meq/ Miscellaneous 20 ml @ 20 mls/hr 1X ONCE 12/23/18 07:30 12/23/18 08:29 DC 12/23/18 08:33 Methylprednisolone Acetate (DEPO-Medrol 40MG VIAL) 40 mg 1X ONCE 12/21/18 12:00 12/21/18 12:01 DC 12/21/18 12:00 40 MG Metoprolol Succinate (Toprol Xl) 25 mg DAILY 12/25/18 11:00 12/26/18 10:09 25 MG Midazolam HCl (Versed) 2 mg STK-MED ONCE 12/20/18 11:17 12/20/18 11:18 DC Morphine Sulfate (Morphine Sulfate) 1 mg PRN Q10MIN PRN 12/23/18 07:30 12/24/18 07:29 DC Neostigmine Methylsulfate (Bloxiverz) 10 mg STK-MED ONCE 12/20/18 11:16 12/20/18 11:17 DC Neostigmine Methylsulfate (Neostigmine Methylsulfate) 5 mg STK-MED ONCE 12/23/18 09:10 12/23/18 09:10 DC Ondansetron HCl (Zofran) 4 mg STK-MED ONCE 12/23/18 09:06 12/23/18 09:06 DC Pantoprazole Sodium (PROTONIX VIAL for IV PUSH) 40 mg DAILYAC 12/17/18 10:30 12/25/18 10:27 DC 12/25/18 06:23 40 MG Pantoprazole Sodium (Protonix) 40 mg DAILYAC 12/26/18 11:00 Phenylephrine HCl (Cheko-Synephrine Inj) 10 mg STK-MED ONCE 12/23/18 08:48 12/23/18 08:48 DC Phytonadione 10 mg/Dextrose 51 ml @ 102 mls/hr 1X ONCE 12/19/18 09:15 12/19/18 09:44 DC 12/19/18 10:37 102 MLS/HR Piperacillin Sod/ Tazobactam Sod 3.375 gm/Sodium Chloride 50 ml @ 100 mls/hr Q6HRS 12/22/18 12:00 12/26/18 08:41 DC 12/26/18 05:37 100 MLS/HR Potassium Chloride/Dextrose/ Sod Cl 1,000 ml @ 125 mls/hr Q8H 12/24/18 10:30 12/25/18 10:27 DC 12/25/18 06:44 125 MLS/HR Prochlorperazine Edisylate (Compazine) 5 mg PACU PRN PRN 12/23/18 07:30 12/24/18 07:29 DC Propofol 20 ml @ As Directed STK-MED ONCE 12/23/18 06:28 12/23/18 06:28 DC Ringer's Solution 1,000 ml @ 30 mls/hr Q24H 12/23/18 07:21 12/23/18 19:20 DC Rocuronium [place] (Zemuron) 50 mg STK-MED ONCE 12/23/18 06:28 12/23/18 06:28 DC Sevoflurane (Ultane) 90 ml STK-MED ONCE 12/23/18 09:44 12/23/18 09:44 DC Sodium Chloride 1,000 ml @ 60 mls/hr [id number] 12/25/18 10:30 12/26/18 04:17 75 MLS/HR Succinylcholine Chloride (Anectine) 200 mg STK-MED ONCE 12/23/18 07:45 12/23/18 07:46 DC Warfarin Sodium (Coumadin Per Pharmacy) 1 each PRN DAILY PRN 12/26/18 08:00 12/26/18 09:11 1 EACH Warfarin Sodium (Coumadin) 5 mg DAILY16 12/26/18 16:00 Lab Laboratory Tests Test 12/25/18 11:45 12/26/18 02:45 12/26/18 10:30 Glucose (Fingerstick) 99 mg/dL (70-99) White Blood Count 9.1 x10^3/uL (4.0-11.0) Red Blood Count 3.44 x10^6/uL (3.50-5.40) Hemoglobin 10.6 g/dL (12.0-15.5) Hematocrit 32.4 % (36.0-47.0) Mean Corpuscular Volume 94 fL (79-100) Mean Corpuscular Hemoglobin 31 pg (25-35) Mean Corpuscular Hemoglobin Concent 33 g/dL (31-37) Red Cell Distribution Width 14.0 % (11.5-14.5) Platelet Count 208 x10^3/uL (140-400) Neutrophils (%) (Auto) 77 % (31-73) Lymphocytes (%) (Auto) 16 % (24-48) Monocytes (%) (Auto) 7 % (0-9) Eosinophils (%) (Auto) 0 % (0-3) Basophils (%) (Auto) 0 % (0-3) Neutrophils # (Auto) 7.0 x10^3/uL (1.8-7.7) Lymphocytes # (Auto) 1.4 x10^3/uL (1.0-4.8) Monocytes # (Auto) 0.7 x10^3/uL (0.0-1.1) Eosinophils # (Auto) 0.0 x10^3/uL (0.0-0.7) Basophils # (Auto) 0.0 x10^3/uL (0.0-0.2) Prothrombin Time 16.0 SEC (11.7-14.0) Prothromb Time International Ratio 1.3 (0.8-1.1) Heparin Anti-Xa Act, Unfractionated 0.16 IU/mL (0.30-0.70) 0.83 IU/mL (0.30-0.70) Sodium Level 143 mmol/L (136-145) Potassium Level 3.8 mmol/L (3.5-5.1) Chloride Level 110 mmol/L (98-107) Carbon Dioxide Level 23 mmol/L (21-32) Anion Gap 10 (6-14) Blood Urea Nitrogen 26 mg/dL (7-20) Creatinine 1.8 mg/dL (0.6-1.0) Estimated GFR (Cockcroft-Gault) 32.7 Glucose Level 88 mg/dL (70-99) Calcium Level 8.0 mg/dL (8.5-10.1) Results All relevant outside records, renal labs, imaging studies, telemetry/EKG's were reviewed. RUBEN RUCKER MD Dec 26, 2018 11:10
[2018-12-26 15:00] VITALS: BP 190/90
--- NOTE | 2018-12-26 15:20 | NUR ---
Pharmacy Warfarin Dosing Note S:Pharmacy consulted to assist with anticoagulation therapy started with target INR: 2 -3 O:LEYDI TRUJILLO is a 83 year old F with Atrial Fibrillation LABS: Last INR: 1.3 Last HGB: 10.6 Last HCT: 32.4 Last PLT: 208 Last dose of Hold given on 12/26/18 at 1600 Previous Regimen: 3.5 MG /D Vitamin K given: Drug Interaction Changes: Ongoing Drug Interactions: A:INR of 1.3 is below desired range. Target range for this patient is: 2 -3 P: Warfarin dose: 5 mg Today at 1600 Bridge Therapy: Heparin Therapeutic CONT Next INR due in am Pharmacy anticoagulation service will continue to follow. BRIGETTE GODINEZ, FORMERLY [facility] [place], 12/26/18 [id number]
[2018-12-26] MEDS ORDERED: WARFARIN 5 MG TABLET. PO SCH (16:00)
[2018-12-26] MEDS ORDERED: amLODIPine BESYLATE 5 MG TABLET ONE (16:08)
[2018-12-26] MEDS: LACTOBACILLUS RHAMNOSUS GG 1 CAPSULE. PO SCH ×2 (16:49→22:09)
[2018-12-26] MEDS: PANTOPRAZOLE 40 MG TABLET.DR. PO SCH (16:49)
[2018-12-26] MEDS: hydrALAZINE 20 MG/ML VIAL. IVP PRN (16:55)
[2018-12-26] MEDS: HEPARIN 25,000UTS/500ML PREMIX 500 ML IV PRN (18:55)
[2018-12-26 19:04] VITALS: BP 162/105
[2018-12-26 22:03] VITALS: BP 176/97
[2018-12-26] MEDS: ATORVASTATIN CALCIUM 20 MG TABLET PO SCH (22:09)
[2018-12-27] MEDS: hydrALAZINE 20 MG/ML VIAL. IVP PRN (00:02)
[2018-12-27] MEDS: HEPARIN for IV BOLUS 10,000 UNIT/10 ML VIAL. IV PRN (00:08)
[2018-12-27 02:06] VITALS: BP 154/78
[2018-12-27 06:29] LABS: PROTHROMBIN TIME PATIENT 16.1 SEC (11.7-14.0)
[2018-12-27] MEDS: PANTOPRAZOLE 40 MG TABLET.DR. PO SCH (06:29)
[2018-12-27 06:31] LABS: UNFRACTIONATED HEPARIN TESTING 0.45 IU/mL (0.30-0.70)
[2018-12-27 06:34] LABS: CALCIUM 8.1 mg/dL (8.5-10.1); CREATININE 1.7 mg/dL (0.6-1.0); GFR 34.9; POTASSIUM 3.4 mmol/L (3.5-5.1)
[2018-12-27 06:44] LABS: HEMATOCRIT 31.2 % (36.0-47.0); HEMOGLOBIN 10.2 g/dL (12.0-15.5); RED BLOOD COUNT 3.32 x10^6/uL (3.50-5.40); RED CELL DISTRIBUTION WIDTH 13.8 % (11.5-14.5); WHITE BLOOD COUNT 9.3 x10^3/uL (4.0-11.0)
[2018-12-27 07:00] VITALS: BP 157/70
--- NOTE | 2018-12-27 07:20 | PDOC ---
Infectious Disease Note Subjective Subjective Feeling better Comfortable Moving around well Tolerating diet advance No F/C/N/V/SOA + Flatus/BM ROS ROS o/w neg Vital Sign Vital Signs Vital Signs Date Time Temp Pulse Resp B/P (MAP) Pulse Ox O2 Delivery O2 Flow Rate FiO2 12/27/18 02:06 98.0 94 18 154/78 (103) 98 Room Air 98.0 Physical Exam PHYSICAL EXAM GENERAL: Propped up in bed, alert HEENT: Oral cavity clear, NECK: Supple, no JVD. LUNGS: Clear bilaterally. HEART: S1 S2, Irregularly irregular. ABDOMEN: Obese, soft, mild tenderness in the right upper quadrant : Sheldon - out EXTREMITIES: No edema, no cyanosis. [place] left groin in place, DP palpable SKIN: Warm, dry. No generalized rash. NEUROLOGIC: Alert and oriented x 3, grossly nonfocal. PIV Labs Lab Laboratory Tests Test 12/26/18 10:30 12/26/18 17:30 12/26/18 23:30 12/27/18 06:00 Heparin Anti-Xa Act, Unfractionated 0.83 IU/mL (0.30-0.70) 0.36 IU/mL (0.30-0.70) 0.27 IU/mL (0.30-0.70) 0.45 IU/mL (0.30-0.70) White Blood Count 9.3 x10^3/uL (4.0-11.0) Red Blood Count 3.32 x10^6/uL (3.50-5.40) Hemoglobin 10.2 g/dL (12.0-15.5) Hematocrit 31.2 % (36.0-47.0) Mean Corpuscular Volume 94 fL (79-100) Mean Corpuscular Hemoglobin 31 pg (25-35) Mean Corpuscular Hemoglobin Concent 33 g/dL (31-37) Red Cell Distribution Width 13.8 % (11.5-14.5) Platelet Count 224 x10^3/uL (140-400) Prothrombin Time 16.1 SEC (11.7-14.0) Prothromb Time International Ratio 1.3 (0.8-1.1) Sodium Level 141 mmol/L (136-145) Potassium Level 3.4 mmol/L (3.5-5.1) Chloride Level 108 mmol/L (98-107) Carbon Dioxide Level 21 mmol/L (21-32) Anion Gap 12 (6-14) Blood Urea Nitrogen 21 mg/dL (7-20) Creatinine 1.7 mg/dL (0.6-1.0) Estimated GFR (Cockcroft-Gault) 34.9 Glucose Level 88 mg/dL (70-99) Calcium Level 8.1 mg/dL (8.5-10.1) Micro Microbiology 12/18/18 Urine Culture - Final, Complete 12/18/18 Urine Culture Result 1 (ALEJANDRINA) - Final, Complete Objective Assessment Leukocytosis, likely multifactorial from ileus versus small bowel obstruction versus urinary tract infection. better Urinary retention, with Sheldon in place this admission Chronic abdominal pain, with nausea and vomiting on presentation -better. Acute kidney injury on chronic kidney disease, with underlying left nephrectomy.- better Ileus versus small bowel obstruction- tolerating clears Pyuria UC lactobacillus Acute onset left lower extremity ischemia s/p thrombectomy, angioplasty and stent, 12/23 h/o A-fib HTN Plan Plan of Care Discontinue zosyn dose Augmentin 12/26 for a few days taper soon s/p dexamethasone, 12/23 Gen surgery/Vascular following Maintain aspiration precaution. D/w nursing ITALIA KRUEGER MD Dec 27, 2018 07:20
[2018-12-27] MEDS: AMOXICILLIN/K CLAV 875/125MG TABLET. PO SCH ×2 (09:46→21:58)
[2018-12-27] MEDS: FEBUXOSTAT 40 MG TABLET PO SCH (09:46)
[2018-12-27] MEDS: METOPROLOL SUCC 24HR ER 25 MG TAB.ER.24H. PO SCH (09:47)
[2018-12-27] MEDS: CLOPIDOGREL BISULFATE 75 MG TABLET PO SCH (09:47)
[2018-12-27] MEDS: amLODIPine BESYLATE 10 MG TABLET PO SCH (09:47)
[2018-12-27] MEDS: LACTOBACILLUS RHAMNOSUS GG 1 CAPSULE. PO SCH ×2 (09:47→21:58)
[2018-12-27] MEDS: DICLOFENAC SODIUM 1% TOPICAL GEL 100GM TUBE. TP SCH ×4 (09:48→21:59)
[2018-12-27] MEDS: IV 1/2 NORMAL SALINE 1,000 ML IV SCH (09:49)
--- NOTE | 2018-12-27 10:00 | PDOC ---
PROGRESS NOTES Subjective Subjective feels better. wants to eat a hamburger/ tolerated full liquids. bowels are moving. lab reviewed. potassium low 3.4. bp is high and will add losartan which she took at home and will start with 50 mg daily. creatinine 1.7. Objective Objective Vital Signs Date Time Temp Pulse Resp B/P (MAP) Pulse Ox O2 Delivery O2 Flow Rate FiO2 12/27/18 09:47 98 157/70 12/27/18 07:00 97.4 18 100 Room Air 97.4 12/24/18 15:00 4.0 Intake and Output 12/27/18 07:00 Intake Total 880 ml Output Total 650 ml Balance 230 ml Intake Oral 880 ml Output Urine Total 650 ml # Voids 3 # Bowel Movements 3 Physical Exam Abdomen: Soft Heart: Normal S1, Normal S2 Extremities: No edema, Other (DP pulses present both feet. provena vac left groin) General: Alert HEENT: Atraumatic Lungs: Clear to auscultation Neuro: Normal speech Psych/Mental Status: Mental status NL Skin: No rashes Assessment Assessment Problemspartial small-bowel obstruction resolved 2. Acute kidney injury better top of chronic kidney disease stage 3. baseline creatinine 1.4. 3. Hypertension.bp high 4. Hyperlipidemia. 5. Chronic atrial fibrillation with a slightly increased VR. osteoarthritis left knee treated with steroid injection 6. Chronic gout. 7. History of a left nephrectomy. left popliteal and left iliac thromboembolectomy with left iliac artery angioplasty and stent mild leukocytosis resolved hypokalemia Medical Problems: (1) Epigastric pain Status: Acute (2) Epigastric pain Status: Acute (3) Nausea Status: Acute (4) Nausea Status: Acute (5) Small bowel obstruction Status: Acute Plan Plan of Care replete kcl continue iv fluids advance to regular diet PT and OT resume losartan and continue amlodipine and prn iv hydralazine lab tomorrow continue iv heparin and coumadin Comment Review of Relevant I have reviewed the following items rubia (where applicable) has been applied. Labs Laboratory Tests Test 12/25/18 11:45 12/26/18 02:45 12/26/18 10:30 12/26/18 17:30 Glucose (Fingerstick) 99 mg/dL (70-99) White Blood Count 9.1 x10^3/uL (4.0-11.0) Red Blood Count 3.44 x10^6/uL (3.50-5.40) Hemoglobin 10.6 g/dL (12.0-15.5) Hematocrit 32.4 % (36.0-47.0) Mean Corpuscular Volume 94 fL (79-100) Mean Corpuscular Hemoglobin 31 pg (25-35) Mean Corpuscular Hemoglobin Concent 33 g/dL (31-37) Red Cell Distribution Width 14.0 % (11.5-14.5) Platelet Count 208 x10^3/uL (140-400) Neutrophils (%) (Auto) 77 % (31-73) Lymphocytes (%) (Auto) 16 % (24-48) Monocytes (%) (Auto) 7 % (0-9) Eosinophils (%) (Auto) 0 % (0-3) Basophils (%) (Auto) 0 % (0-3) Neutrophils # (Auto) 7.0 x10^3/uL (1.8-7.7) Lymphocytes # (Auto) 1.4 x10^3/uL (1.0-4.8) Monocytes # (Auto) 0.7 x10^3/uL (0.0-1.1) Eosinophils # (Auto) 0.0 x10^3/uL (0.0-0.7) Basophils # (Auto) 0.0 x10^3/uL (0.0-0.2) Prothrombin Time 16.0 SEC (11.7-14.0) Prothromb Time International Ratio 1.3 (0.8-1.1) Heparin Anti-Xa Act, Unfractionated 0.16 IU/mL (0.30-0.70) 0.83 IU/mL (0.30-0.70) 0.36 IU/mL (0.30-0.70) Sodium Level 143 mmol/L (136-145) Potassium Level 3.8 mmol/L (3.5-5.1) Chloride Level 110 mmol/L (98-107) Carbon Dioxide Level 23 mmol/L (21-32) Anion Gap 10 (6-14) Blood Urea Nitrogen 26 mg/dL (7-20) Creatinine 1.8 mg/dL (0.6-1.0) Estimated GFR (Cockcroft-Gault) 32.7 Glucose Level 88 mg/dL (70-99) Calcium Level 8.0 mg/dL (8.5-10.1) Test 12/26/18 23:30 12/27/18 06:00 Heparin Anti-Xa Act, Unfractionated 0.27 IU/mL (0.30-0.70) 0.45 IU/mL (0.30-0.70) White Blood Count 9.3 x10^3/uL (4.0-11.0) Red Blood Count 3.32 x10^6/uL (3.50-5.40) Hemoglobin 10.2 g/dL (12.0-15.5) Hematocrit 31.2 % (36.0-47.0) Mean Corpuscular Volume 94 fL (79-100) Mean Corpuscular Hemoglobin 31 pg (25-35) Mean Corpuscular Hemoglobin Concent 33 g/dL (31-37) Red Cell Distribution Width 13.8 % (11.5-14.5) Platelet Count 224 x10^3/uL (140-400) Prothrombin Time 16.1 SEC (11.7-14.0) Prothromb Time International Ratio 1.3 (0.8-1.1) Sodium Level 141 mmol/L (136-145) Potassium Level 3.4 mmol/L (3.5-5.1) Chloride Level 108 mmol/L (98-107) Carbon Dioxide Level 21 mmol/L (21-32) Anion Gap 12 (6-14) Blood Urea Nitrogen 21 mg/dL (7-20) Creatinine 1.7 mg/dL (0.6-1.0) Estimated GFR (Cockcroft-Gault) 34.9 Glucose Level 88 mg/dL (70-99) Calcium Level 8.1 mg/dL (8.5-10.1) Laboratory Tests Test 12/26/18 10:30 12/26/18 17:30 12/26/18 23:30 12/27/18 06:00 Heparin Anti-Xa Act, Unfractionated 0.83 IU/mL (0.30-0.70) 0.36 IU/mL (0.30-0.70) 0.27 IU/mL (0.30-0.70) 0.45 IU/mL (0.30-0.70) White Blood Count 9.3 x10^3/uL (4.0-11.0) Red Blood Count 3.32 x10^6/uL (3.50-5.40) Hemoglobin 10.2 g/dL (12.0-15.5) Hematocrit 31.2 % (36.0-47.0) Mean Corpuscular Volume 94 fL (79-100) Mean Corpuscular Hemoglobin 31 pg (25-35) Mean Corpuscular Hemoglobin Concent 33 g/dL (31-37) Red Cell Distribution Width 13.8 % (11.5-14.5) Platelet Count 224 x10^3/uL (140-400) Prothrombin Time 16.1 SEC (11.7-14.0) Prothromb Time International Ratio 1.3 (0.8-1.1) Sodium Level 141 mmol/L (136-145) Potassium Level 3.4 mmol/L (3.5-5.1) Chloride Level 108 mmol/L (98-107) Carbon Dioxide Level 21 mmol/L (21-32) Anion Gap 12 (6-14) Blood Urea Nitrogen 21 mg/dL (7-20) Creatinine 1.7 mg/dL (0.6-1.0) Estimated GFR (Cockcroft-Gault) 34.9 Glucose Level 88 mg/dL (70-99) Calcium Level 8.1 mg/dL (8.5-10.1) Microbiology 12/18/18 Urine Culture - Final, Complete 12/18/18 Urine Culture Result 1 (ALEJANDRINA) - Final, Complete Medications Current Medications Ondansetron HCl (Zofran) 4 mg 1X ONCE IM ; Start 12/16/18 at 09:30; Stop 12/16/18 at 09:31; Status DC Fentanyl Citrate (Fentanyl 2ml Vial) 75 mcg 1X ONCE IVP Last administered on 12/16/18at 09:46; Start 12/16/18 at 09:45; Stop 12/16/18 at 09:46; Status DC Ondansetron HCl (Zofran) 4 mg 1X ONCE IVP Last administered on 12/16/18at 09: 51; Start 12/16/18 at 10:00; Stop 12/16/18 at 10:01; Status DC Sodium Chloride 1,000 ml @ 1,000 mls/hr 1X ONCE IV Last administered on 12/16/18at 10:40; Start 12/16/18 at 10:15; Stop 12/16/18 at 11:14; Status DC Clonidine HCl (Catapres) 0.1 mg 1X ONCE PO Last administered on 12/16/18at 15:12; Start 12/16/18 at 14:15; Stop 12/16/18 at 14:16; Status DC Fentanyl Citrate (Fentanyl 2ml Vial) 75 mcg 1X ONCE IVP ; Start 12/16/18 at 15:15; Stop 12/16/18 at 15:16; Status DC Ondansetron HCl (Zofran) 4 mg PRN Q8HRS PRN IV NAUSEA/VOMITING; Start 12/16/18 at 15:15; Stop 12/16/18 at 17:10; Status DC Fentanyl Citrate (Fentanyl 2ml Vial) 50 mcg PRN Q1HR PRN IV PAIN Last administered on 12/17/18at 07:28; Start 12/16/18 at 15:15; Stop 12/17/18 at 15:14; Status DC Sodium Chloride 1,000 ml @ 125 mls/hr Q8H IV ; Start 12/16/18 at 15:10; Stop 12/16/18 at 17:26; Status DC Acetaminophen (Tylenol) 650 mg PRN Q4HRS PRN PO FEVER; Start 12/16/18 at 15:15; Stop 12/17/18 at 15:14; Status DC Potassium Chloride/Dextrose/ Sod Cl 1,000 ml @ 100 mls/hr Q10H IV Last administered on 12/18/18at 01:27; Start 12/16/18 at 17:00; Stop 12/18/18 at 10:34; Status DC Ondansetron HCl (Zofran) 4 mg PRN Q6HRS PRN IVP NAUSEA/VOMITING Last administered on 12/18/18at 21:17; Start 12/16/18 at 17:00 Hydralazine HCl (Apresoline Inj) 10 mg PRN Q6HRS PRN IVP ELEVATED BP, SEE COMMENTS Last administered on 12/27/18at 00:02; Start 12/17/18 at 01:00 Enoxaparin Sodium (Lovenox 100mg Syringe) 100 mg DAILY SQ Last administered on 12/17/18at 12:49; Start 12/17/18 at 10:30; Stop 12/19/18 at 09:14; Status DC Info (Anti-Coagulation Monitoring By Pharmacy) 1 each PRN DAILY PRN MC SEE COMMENTS Last administered on 12/26/18at 15:20; Start 12/17/18 at 10:15 Pantoprazole Sodium (PROTONIX VIAL for IV PUSH) 40 mg DAILYAC IVP Last administered on 12/25/18at 06:23; Start 12/17/18 at 10:30; Stop 12/25/18 at 10:27; Status DC Acetaminophen (Tylenol Supp) 650 mg PRN Q6HRS PRN [place] HEADACHE / TEMP; Start 12/17/18 at 10:00; Stop 12/25/18 at 10:27; Status DC Fentanyl Citrate (Fentanyl 2ml Vial) 50 mcg PRN Q4HRS PRN IVP PAIN Last administered on 12/23/18at 22:01; Start 12/17/18 at 10:00; Stop 12/27/18 at 09:54; Status DC Insulin Human Lispro (HumaLOG) 0-6 UNITS BG 300-399... Q6HRS SQ ; Start 12/17/18 at 12:00; Stop 12/17/18 at 10:24; Status DC Ceftriaxone Sodium (Rocephin) 1 gm Q24H IVP Last administered on 12/21/18at 12:42; Start 12/18/18 at 11:00; Stop 12/22/18 at 10:07; Status DC Dextrose/Sodium Chloride 1,000 ml @ 150 mls/hr Q6H40M IV Last administered on 12/20/18at 03:00; Start 12/18/18 at 10:30; Stop 12/20/18 at 09:52; Status DC Bupivacaine HCl/ Epinephrine Bitart (Sensorcain-Epi 0.5%-1:[id number] Mpf) 30 ml 1X ONCE INJ ; Start 12/18/18 at 15:00; Stop 12/18/18 at 15:01; Status Cancel Bupivacaine HCl/ Epinephrine Bitart (Sensorcain-Epi 0.5%-1:[id number] Mpf) 30 ml 1X ONCE INJ Last administered on 12/19/18at 06:00; Start 12/19/18 at 06:00; Stop 12/19/18 at 06:01; Status DC Ondansetron HCl (Zofran) 4 mg PRN Q6HRS PRN IV NAUSEA/VOMITING; Start 12/19/18 at 07:00; Stop 12/20/18 at 06:59; Status DC Fentanyl Citrate (Fentanyl 2ml Vial) 25 mcg PRN Q5MIN PRN IV MILD PAIN 1-3; Start 12/19/18 at 07:00; Stop 12/20/18 at 06:59; Status DC Fentanyl Citrate (Fentanyl 2ml Vial) 50 mcg PRN Q5MIN PRN IV MODERATE TO SEVERE PAIN; Start 12/19/18 at 07:00; Stop 12/20/18 at 06:59; Status DC Morphine Sulfate (Morphine Sulfate) 1 mg PRN Q10MIN PRN IV SEVERE PAIN 7-10; Start 12/19/18 at 07:00; Stop 12/20/18 at 06:59; Status DC Ringer's Solution 1,000 ml @ 30 mls/hr Q24H IV ; Start 12/19/18 at 07:00; Stop 12/19/18 at 18:59; Status DC Lidocaine HCl (Xylocaine-Mpf 1% 2ml Vial) 2 ml PRN 1X PRN ID PRIOR TO IV START; Start 12/19/18 at 07:00; Stop 12/20/18 at 06:59; Status DC Hydromorphone HCl (Dilaudid) 0.5 mg PRN Q10MIN PRN IV SEV PAIN, Second choice; Start 12/19/18 at 07:00; Stop 12/20/18 at 06:59; Status DC Prochlorperazine Edisylate (Compazine) 5 mg PACU PRN PRN IV NAUSEA, MRX1; Start 12/19/18 at 07:00; Stop 12/20/18 at 06:59; Status DC Phytonadione 10 mg/Dextrose 51 ml @ 102 mls/hr 1X ONCE IV Last administered on 12/19/18at 10:37; Start 12/19/18 at 09:15; Stop 12/19/18 at 09:44; Status DC Potassium Chloride/Dextrose/ Sod Cl 1,000 ml @ 150 mls/hr Q6H40M IV Last administered on 12/21/18at 03:26; Start 12/20/18 at 11:00; Stop 12/21/18 at 11:06; Status DC Lidocaine HCl (Lidocaine Pf 2% Vial) 5 ml STK-MED ONCE .ROUTE ; Start 12/20/18 at 11:14; Stop 12/20/18 at 11:14; Status DC Neostigmine Methylsulfate (Bloxiverz) 10 mg STK-MED ONCE .ROUTE ; Start 12/20/18 at 11:16; Stop 12/20/18 at 11:17; Status DC Rocuronium Telferner (Zemuron) 50 mg STK-MED ONCE .ROUTE ; Start 12/20/18 at 11:17; Stop 12/20/18 at 11:17; Status DC Fentanyl Citrate (Fentanyl 2ml Vial) 100 mcg STK-MED ONCE .ROUTE ; Start 12/20/18 at 11:17; Stop 12/20/18 at 11:18; Status DC Midazolam HCl (Versed) 2 mg STK-MED ONCE .ROUTE ; Start 12/20/18 at 11:17; Stop 12/20/18 at 11:18; Status DC Glycopyrrolate (Robinul) 1 mg STK-MED ONCE .ROUTE ; Start 12/20/18 at 11:17; Stop 12/20/18 at 11:18; Status DC Succinylcholine Chloride (Anectine) 200 mg STK-MED ONCE .ROUTE ; Start 12/20/18 at 11:21; Stop 12/20/18 at 11:21; Status DC Diclofenac Sodium (Voltaren) 1 marilyn QID TP Last administered on 12/27/18at 09:48 ; Start 12/21/18 at 13:00 Dextrose/Sodium Chloride 1,000 ml @ 125 mls/hr Q8H IV Last administered on 12/23/18at 03:30; Start 12/21/18 at 11:15; Stop 12/23/18 at 11:59; Status DC Methylprednisolone Acetate (DEPO-Medrol 40MG VIAL) 40 mg 1X ONCE IM Last administered on 12/21/18at 12:00; Start 12/21/18 at 12:00; Stop 12/21/18 at 12:01; Status DC Bupivacaine HCl (Sensorcaine-Mpf 0.25%) 10 ml 1X ONCE IJ Last administered on 12/21/18at 12:00; Start 12/21/18 at 12:00; Stop 12/21/18 at 12:01; Status DC Piperacillin Sod/ Tazobactam Sod 3.375 gm/Sodium Chloride 50 ml @ 100 mls/hr Q6HRS IV Last administered on 12/26/18at 05:37; Start 12/22/18 at 12:00; Stop 12/26/18 at 08:41; Status DC Heparin Sodium/ Dextrose 500 ml @ 32 mls/min CONT PRN IV SEE PROTOCOL; Start 12/22/18 at 14:30; Stop 12/22/18 at 20:12; Status DC Heparin Sodium (Porcine) (Heparin Sodium) 3,050 unit PRN Q6HRS PRN IV FOR UFH LEVEL LESS THAN 0.2; Start 12/22/18 at 14:30; Stop 12/22/18 at 20:10; Status DC Heparin Sodium (Porcine) (Heparin Sodium) 1,550 unit PRN Q6HRS PRN IV FOR UFH LEVEL 0.2 - 0.29; Start 12/22/18 at 14:30; Stop 12/22/18 at 20:10; Status DC Heparin Sodium (Porcine) (Heparin Sodium) 5,000 unit Q8HRS SQ Last administered on 12/22/18at 22:11; Start 12/22/18 at 22:00; Stop 12/23/18 at 06:10; Status DC Fentanyl Citrate (Fentanyl 2ml Vial) 25 mcg 1X ONCE IVP Last administered on 12/23/18at 03:21; Start 12/23/18 at 03:30; Stop 12/23/18 at 03:31; Status DC Heparin Sodium (Porcine) (Heparin Sodium) 5,000 unit 1X STAT IV ; Start 12/23/18 at 05:58; Stop 12/23/18 at 05:59; Status UNV Heparin Sodium/ Dextrose 500 ml @ 0 mls/hr CONT PRN IV SEE I/O RECORD; Start 12/23/18 at 06:00; Status UNV Heparin Sodium (Porcine) (Heparin Sodium) 5,000 unit 1X ONCE IV Last administered on 12/23/18at 06:16; Start 12/23/18 at 06:30; Stop 12/23/18 at 06:31; Status DC Heparin Sodium/ Dextrose 500 ml @ 24 mls/hr CONT PRN PRN IV DVT Last administered on 12/26/18at 18:55; Start 12/23/18 at 06:30 Heparin Sodium (Porcine) (Heparin Sodium) 3,050 unit PRN Q6HRS PRN IV FOR UFH LEVEL LESS THAN 0.2 Last administered on 12/27/18at 00:08; Start 12/23/18 at 06:15 Heparin Sodium (Porcine) (Heparin Sodium) 1,550 unit PRN Q6HRS PRN IV FOR UFH LEVEL 0.2 - 0.29; Start 12/23/18 at 06:15 Propofol 20 ml @ As Directed STK-MED ONCE IV ; Start 12/23/18 at 06:28; Stop 12/23/18 at 06:28; Status DC Lidocaine HCl (Lidocaine Pf 2% Vial) 5 ml STK-MED ONCE .ROUTE ; Start 12/23/18 at 06:28; Stop 12/23/18 at 06:28; Status DC Fentanyl Citrate (Fentanyl 2ml Vial) 100 mcg STK-MED ONCE .ROUTE ; Start 12/23/18 at 06:28; Stop 12/23/18 at 06:28; Status DC Rocuronium Telferner (Zemuron) 50 mg STK-MED ONCE .ROUTE ; Start 12/23/18 at 06:28; Stop 12/23/18 at 06:28; Status DC Heparin Sodium (Porcine) 5000 unit/Sodium Chloride 505 ml @ 505 mls/hr 1X ONCE IRR ; Start 12/23/18 at 07:30; Stop 12/23/18 at 08:29; Status DC Cefazolin Sodium 1 gm/Sodium Chloride 500 ml @ 500 mls/hr 1X ONCE IRR Last administered on 12/23/18at 08:33; Start 12/23/18 at 07:30; Stop 12/23/18 at 08:29; Status DC Lidocaine HCl 16 ml/Sodium Bicarbonate 4 meq/ Miscellaneous 20 ml @ 20 mls/hr 1X ONCE ID Last administered on 12/23/18at 08:33; Start 12/23/18 at 07:30; Stop 12/23/18 at 08:29; Status DC Ondansetron HCl (Zofran) 4 mg PRN Q6HRS PRN IV NAUSEA/VOMITING; Start 12/23/18 at 07:30; Stop 12/24/18 at 07:29; Status DC Fentanyl Citrate (Fentanyl 2ml Vial) 25 mcg PRN Q5MIN PRN IV MILD PAIN 1-3; Start 12/23/18 at 07:30; Stop 12/24/18 at 07:29; Status DC Fentanyl Citrate (Fentanyl 2ml Vial) 50 mcg PRN Q5MIN PRN IV MODERATE TO SEVERE PAIN; Start 12/23/18 at 07:30; Stop 12/24/18 at 07:29; Status DC Morphine Sulfate (Morphine Sulfate) 1 mg PRN Q10MIN PRN IV SEVERE PAIN 7-10; Start 12/23/18 at 07:30; Stop 12/24/18 at 07:29; Status DC Ringer's Solution 1,000 ml @ 30 mls/hr Q24H IV ; Start 12/23/18 at 07:21; Stop 12/23/18 at 19:20; Status DC Lidocaine HCl (Xylocaine-Mpf 1% 2ml Vial) 2 ml PRN 1X PRN ID PRIOR TO IV START; Start 12/23/18 at 07:30; Stop 12/24/18 at 07:29; Status DC Hydromorphone HCl (Dilaudid) 0.5 mg PRN Q10MIN PRN IV SEV PAIN, Second choice; Start 12/23/18 at 07:30; Stop 12/24/18 at 07:29; Status DC Prochlorperazine Edisylate (Compazine) 5 mg PACU PRN PRN IV NAUSEA, MRX1; Start 12/23/18 at 07:30; Stop 12/24/18 at 07:29; Status DC Succinylcholine Chloride (Anectine) 200 mg STK-MED ONCE .ROUTE ; Start 12/23/18 at 07:45; Stop 12/23/18 at 07:46; Status DC Fentanyl Citrate (Fentanyl 2ml Vial) 100 mcg STK-MED ONCE .ROUTE ; Start 12/23/18 at 08:24; Stop 12/23/18 at 08:24; Status DC Labetalol HCl (Normodyne Iv Push) 10 mg 1X ONCE IVP ; Start 12/23/18 at 08:30; Stop 12/23/18 at 08:31; Status DC Phenylephrine HCl (Cheko-Synephrine Inj) 10 mg STK-MED ONCE .ROUTE ; Start 12/23/18 at 08:48; Stop 12/23/18 at 08:48; Status DC Iohexol (Omnipaque 300 Mg/ml) 50 ml STK-MED ONCE .ROUTE Last administered on 12/23/18at 08:33; Start 12/23/18 at 09:05; Stop 12/23/18 at 09:05; Status DC Hydrocortisone Sodium Succinate (Solu-CORTEF) 100 mg STK-MED ONCE .ROUTE ; Start 12/23/18 at 09:06; Stop 12/23/18 at 09:06; Status DC Dexamethasone Sodium Phosphate (Decadron) 4 mg STK-MED ONCE .ROUTE ; Start 12/23/18 at 09:06; Stop 12/23/18 at 09:06; Status DC Ondansetron HCl (Zofran) 4 mg STK-MED ONCE .ROUTE ; Start 12/23/18 at 09:06; Stop 12/23/18 at 09:06; Status DC Famotidine (Pepcid Vial) 20 mg STK-MED ONCE .ROUTE ; Start 12/23/18 at 09:06; Stop 12/23/18 at 09:07; Status DC Neostigmine Methylsulfate (Neostigmine Methylsulfate) 5 mg STK-MED ONCE .ROUTE ; Start 12/23/18 at 09:10; Stop 12/23/18 at 09:10; Status DC Glycopyrrolate (Robinul) 1 mg STK-MED ONCE .ROUTE ; Start 12/23/18 at 09:10; Stop 12/23/18 at 09:11; Status DC Heparin Sodium (Porcine) (Heparin Sodium) 10,000 unit STK-MED ONCE .ROUTE ; Start 12/23/18 at 09:23; Stop 12/23/18 at 09:23; Status DC Iohexol (Omnipaque 300 Mg/ml) 50 ml STK-MED ONCE .ROUTE Last administered on 12/23/18at 08:33; Start 12/23/18 at 09:28; Stop 12/23/18 at 09:28; Status DC Sevoflurane (Ultane) 90 ml STK-MED ONCE IH ; Start 12/23/18 at 09:44; Stop 12/23/18 at 09:44; Status DC Hydrocortisone Sodium Succinate (Solu-CORTEF) 100 mg 1X ONCE IV ; Start 12/23/18 at 11:00; Stop 12/23/18 at 11:15; Status DC Labetalol HCl (Normodyne Iv Push) 5 mg PRN Q10MIN PRN IVP HYPERTENSION Last administered on 12/23/18at 11:24; Start 12/23/18 at 11:30; Stop 12/25/18 at 10:27; Status DC Potassium Chloride/Dextrose/ Sod Cl 1,000 ml @ 125 mls/hr Q8H IV Last administered on 12/24/18at 08:24; Start 12/23/18 at 12:00; Stop 12/24/18 at 09:51; Status DC Potassium Chloride/Dextrose/ Sod Cl 1,000 ml @ 125 mls/hr Q8H IV Last administered on 12/25/18at 06:44; Start 12/24/18 at 10:30; Stop 12/25/18 at 10:27; Status DC Clopidogrel Bisulfate (Plavix) 75 mg 1X ONCE PO ; Start 12/25/18 at 09:15; Stop 12/25/18 at 09:16; Status DC Amlodipine Besylate (Norvasc) 5 mg DAILY PO Last administered on 12/26/18at 10: 08; Start 12/25/18 at 12:00; Stop 12/26/18 at 10:26; Status DC Atorvastatin Calcium (Lipitor) 20 mg QHS PO Last administered on 12/26/18at 22:09; Start 12/25/18 at 21:00 Metoprolol Succinate (Toprol Xl) 25 mg DAILY PO Last administered on 12/27/18at 09:47; Start 12/25/18 at 11:00 Acetaminophen (Tylenol) 650 mg PRN Q6HRS PRN PO MILD PAIN / TEMP; Start 12/25/18 at 10:30 Sodium Chloride 1,000 ml @ 60 mls/hr [id number] IV Last administered on 12/27/18at 09:49; Start 12/25/18 at 10:30 Acetaminophen/ Hydrocodone Bitart (Lortab 5/325) 1 tab PRN Q4HRS PRN PO PAIN; Start 12/25/18 at 10:45 Febuxostat (Uloric) 40 mg DAILY PO Last administered on 12/27/18at 09:46; Start 12/26/18 at 09:00 Clopidogrel Bisulfate (Plavix) 75 mg DAILYWBKFT PO Last administered on 12/27/18 09:47; Start 12/26/18 at 08:00 Warfarin Sodium (Coumadin Per Pharmacy) 1 each PRN DAILY PRN MC SEE COMMENTS Last administered on 12/26/18at 15:19; Start 12/26/18 at 08:00 Warfarin Sodium (Coumadin) 4 mg 1X WARF ONCE PO ; Start 12/25/18 at 16:47; Stop 12/25/18 at 16:48; Status DC Amoxicillin/ Clavulanate Potassium (Augmentin 875/ 125mg) 1 tab BID PO Last administered on 12/27/18 09:46; Start 12/26/18 at 09:00 Lactobacillus Rhamnosus (Culturelle) 1 cap BID PO Last administered on 09:47; Start 12/26/18 at 12:00 Amlodipine Besylate (Norvasc) 10 mg DAILY PO Last administered on 12/27/18 09:47; Start 12/27/18 at 09:00 Warfarin Sodium (Coumadin) 5 mg DAILY16 PO Last administered on 12/26/18at 16:49; Start 12/26/18 at 16:00 Amlodipine Besylate (Norvasc) 5 mg 1X ONCE PO ; Start 12/26/18 at 10:30; Stop 12/26/18 at 16:06; Status DC Pantoprazole Sodium (Protonix) 40 mg DAILYAC PO Last administered on 12/27/18at 06:29; Start 12/26/18 at 11:00 Amlodipine Besylate (Norvasc) 5 mg 1X ONCE PO Last administered on 12/26/18at 16:48; Start 12/26/18 at 16:15; Stop 12/26/18 at 16:16; Status DC Amlodipine Besylate (Norvasc) 5 mg STK-MED ONCE .ROUTE ; Start 12/26/18 at 16:08; Stop 12/26/18 at 16:09; Status DC Active Scripts Active Reported Losartan Potassium 100 Mg Tablet 100 Mg PO DAILY Multi-Vitamin Daily (Multivitamin) 1 Each Tablet 1 Tab PO DAILY 30 Days Coumadin (Warfarin Sodium) 4 Mg Tablet 3.5 Mg PO DAILY Atorvastatin Calcium 20 Mg Tablet 1 Tab PO DAILY Toprol Xl (Metoprolol Succinate) 50 Mg Tab.er.24h 25 Mg PO DAILY Amlodipine Besylate 10 Mg Tablet 10 Mg PO DAILY Uloric (Febuxostat) 40 Mg Tablet 1 Tab PO DAILY Detrol La (Tolterodine Tartrate) 4 Mg Cap.er.24h 1 Cap PO DAILY Vitals/I & O Vital Sign - Last 24 Hours 12/26/18 12/26/18 12/26/18 12/26/18 10:08 10:09 11:00 15:00 Temp 97.3 97.9 97.3 97.9 Pulse 94 106 85 85 Resp 20 20 B/P (MAP) 176/79 176/79 142/76 (98) 190/90 (123) Pulse Ox 99 O2 Delivery Room Air Room Air 12/26/18 12/26/18 12/26/18 12/26/18 16:48 16:55 19:04 19:05 Temp 98.5 98.5 Pulse 81 79 92 Resp 18 B/P (MAP) 185/88 185/88 162/105 (124) Pulse Ox 98 O2 Delivery Room Air Room Air 12/26/18 12/27/18 12/27/18 12/27/18 22:03 00:02 02:06 07:00 Temp 98.2 98.0 97.4 98.2 98.0 97.4 Pulse 96 96 94 89 Resp 16 18 18 B/P (MAP) 176/97 (123) 176/97 154/78 (103) 157/70 (99) Pulse Ox 99 98 100 O2 Delivery Room Air Room Air Room Air 12/27/18 12/27/18 09:47 09:47 Pulse 112 98 B/P (MAP) 157/70 157/70 Intake and Output 12/26/18 12/26/18 12/27/18 15:00 23:00 07:00 Intake Total 540 ml 240 ml 100 ml Output Total 175 ml 475 ml Balance 540 ml 65 ml -375 ml LAURA CROOKS MD Dec 27, 2018 09:59
--- NOTE | 2018-12-27 10:05 | NUR ---
SS following up with discharge planning. SS reviewed pt chart. Pt wishes to return to home with home healthcare at discharge. Pt declining long term unit. Pt currently on heparin drip and physician documented low potassium. Pt agreeable to [facility], ; fax [phone], at discharge. SS will continue to follow for discharge planning.
--- NOTE | 2018-12-27 10:12 | PDOC ---
SURGICAL PROGRESS NOTE Subjective Pt continues doing well clinically, doing well from a GS standpoint with her resolved SBO. Pt states no episodes of N/v and has tolerated full liquids well with continued flatus and BM. Abd remains soft with no peritoneal signs. CBC has returned to normal and patient remains afebrile. Will continue to follow. Vital Signs Vital Signs Date Time Temp Pulse Resp B/P (MAP) Pulse Ox O2 Delivery O2 Flow Rate FiO2 12/27/18 09:47 98 157/70 12/27/18 07:00 97.4 18 100 Room Air 97.4 I&O Intake and Output 12/27/18 07:00 Intake Total 880 ml Output Total 650 ml Balance 230 ml Intake Oral 880 ml Output Urine Total 650 ml # Voids 3 # Bowel Movements 3 Labs Laboratory Tests Test 12/25/18 11:45 12/26/18 02:45 12/26/18 10:30 12/26/18 17:30 Glucose (Fingerstick) 99 mg/dL (70-99) White Blood Count 9.1 x10^3/uL (4.0-11.0) Red Blood Count 3.44 x10^6/uL (3.50-5.40) Hemoglobin 10.6 g/dL (12.0-15.5) Hematocrit 32.4 % (36.0-47.0) Mean Corpuscular Volume 94 fL (79-100) Mean Corpuscular Hemoglobin 31 pg (25-35) Mean Corpuscular Hemoglobin Concent 33 g/dL (31-37) Red Cell Distribution Width 14.0 % (11.5-14.5) Platelet Count 208 x10^3/uL (140-400) Neutrophils (%) (Auto) 77 % (31-73) Lymphocytes (%) (Auto) 16 % (24-48) Monocytes (%) (Auto) 7 % (0-9) Eosinophils (%) (Auto) 0 % (0-3) Basophils (%) (Auto) 0 % (0-3) Neutrophils # (Auto) 7.0 x10^3/uL (1.8-7.7) Lymphocytes # (Auto) 1.4 x10^3/uL (1.0-4.8) Monocytes # (Auto) 0.7 x10^3/uL (0.0-1.1) Eosinophils # (Auto) 0.0 x10^3/uL (0.0-0.7) Basophils # (Auto) 0.0 x10^3/uL (0.0-0.2) Prothrombin Time 16.0 SEC (11.7-14.0) Prothromb Time International Ratio 1.3 (0.8-1.1) Heparin Anti-Xa Act, Unfractionated 0.16 IU/mL (0.30-0.70) 0.83 IU/mL (0.30-0.70) 0.36 IU/mL (0.30-0.70) Sodium Level 143 mmol/L (136-145) Potassium Level 3.8 mmol/L (3.5-5.1) Chloride Level 110 mmol/L (98-107) Carbon Dioxide Level 23 mmol/L (21-32) Anion Gap 10 (6-14) Blood Urea Nitrogen 26 mg/dL (7-20) Creatinine 1.8 mg/dL (0.6-1.0) Estimated GFR (Cockcroft-Gault) 32.7 Glucose Level 88 mg/dL (70-99) Calcium Level 8.0 mg/dL (8.5-10.1) Test 12/26/18 23:30 12/27/18 06:00 Heparin Anti-Xa Act, Unfractionated 0.27 IU/mL (0.30-0.70) 0.45 IU/mL (0.30-0.70) White Blood Count 9.3 x10^3/uL (4.0-11.0) Red Blood Count 3.32 x10^6/uL (3.50-5.40) Hemoglobin 10.2 g/dL (12.0-15.5) Hematocrit 31.2 % (36.0-47.0) Mean Corpuscular Volume 94 fL (79-100) Mean Corpuscular Hemoglobin 31 pg (25-35) Mean Corpuscular Hemoglobin Concent 33 g/dL (31-37) Red Cell Distribution Width 13.8 % (11.5-14.5) Platelet Count 224 x10^3/uL (140-400) Prothrombin Time 16.1 SEC (11.7-14.0) Prothromb Time International Ratio 1.3 (0.8-1.1) Sodium Level 141 mmol/L (136-145) Potassium Level 3.4 mmol/L (3.5-5.1) Chloride Level 108 mmol/L (98-107) Carbon Dioxide Level 21 mmol/L (21-32) Anion Gap 12 (6-14) Blood Urea Nitrogen 21 mg/dL (7-20) Creatinine 1.7 mg/dL (0.6-1.0) Estimated GFR (Cockcroft-Gault) 34.9 Glucose Level 88 mg/dL (70-99) Calcium Level 8.1 mg/dL (8.5-10.1) Laboratory Tests Test 12/26/18 10:30 12/26/18 17:30 12/26/18 23:30 12/27/18 06:00 Heparin Anti-Xa Act, Unfractionated 0.83 IU/mL (0.30-0.70) 0.36 IU/mL (0.30-0.70) 0.27 IU/mL (0.30-0.70) 0.45 IU/mL (0.30-0.70) White Blood Count 9.3 x10^3/uL (4.0-11.0) Red Blood Count 3.32 x10^6/uL (3.50-5.40) Hemoglobin 10.2 g/dL (12.0-15.5) Hematocrit 31.2 % (36.0-47.0) Mean Corpuscular Volume 94 fL (79-100) Mean Corpuscular Hemoglobin 31 pg (25-35) Mean Corpuscular Hemoglobin Concent 33 g/dL (31-37) Red Cell Distribution Width 13.8 % (11.5-14.5) Platelet Count 224 x10^3/uL (140-400) Prothrombin Time 16.1 SEC (11.7-14.0) Prothromb Time International Ratio 1.3 (0.8-1.1) Sodium Level 141 mmol/L (136-145) Potassium Level 3.4 mmol/L (3.5-5.1) Chloride Level 108 mmol/L (98-107) Carbon Dioxide Level 21 mmol/L (21-32) Anion Gap 12 (6-14) Blood Urea Nitrogen 21 mg/dL (7-20) Creatinine 1.7 mg/dL (0.6-1.0) Estimated GFR (Cockcroft-Gault) 34.9 Glucose Level 88 mg/dL (70-99) Calcium Level 8.1 mg/dL (8.5-10.1) Problem List Problems Medical Problems: (1) Epigastric pain Status: Acute (2) Epigastric pain Status: Acute (3) Nausea Status: Acute (4) Nausea Status: Acute (5) Small bowel obstruction Status: Acute JASMYN MYERS MD Dec 27, 2018 10:12
[2018-12-27] MEDS ORDERED: POTASSIUM CHLORIDE 20 MEQ TABLET.ER. PO ONE (10:30)
[2018-12-27 11:00] VITALS: BP 157/75
--- NOTE | 2018-12-27 11:11 | PDOC ---
Subjective: Subjective: Wants to go home. Eating and stooling okay. Was very cold last night so family brought a blanket from home Objective: Objective: Nurse says plans for regular diet at lunch. Vital Signs: Vital Signs Date Time Temp Pulse Resp B/P (MAP) Pulse Ox O2 Delivery O2 Flow Rate FiO2 12/27/18 09:47 98 157/70 12/27/18 08:00 Room Air 12/27/18 07:00 97.4 18 100 97.4 Labs: Laboratory Tests Test 12/26/18 17:30 12/26/18 23:30 12/27/18 06:00 Heparin Anti-Xa Act, Unfractionated 0.36 IU/mL 0.27 IU/mL 0.45 IU/mL White Blood Count 9.3 x10^3/uL Red Blood Count 3.32 x10^6/uL Hemoglobin 10.2 g/dL Hematocrit 31.2 % Mean Corpuscular Volume 94 fL Mean Corpuscular Hemoglobin 31 pg Mean Corpuscular Hemoglobin Concent 33 g/dL Red Cell Distribution Width 13.8 % Platelet Count 224 x10^3/uL Prothrombin Time 16.1 SEC Prothromb Time International Ratio 1.3 Sodium Level 141 mmol/L Potassium Level 3.4 mmol/L Chloride Level 108 mmol/L Carbon Dioxide Level 21 mmol/L Anion Gap 12 Blood Urea Nitrogen 21 mg/dL Creatinine 1.7 mg/dL Estimated GFR (Cockcroft-Gault) 34.9 Glucose Level 88 mg/dL Calcium Level 8.1 mg/dL PE: GEN: NAD, up to chair with a blanket LUNGS: CTAB HEART: RRR ABD: S/ND/NT NEURO/PSYCH: A & O 3 A/P: SBO - resolved -- Plans for regular diet, observe. NATHANIEL SMALL Dec 27, 2018 11:11
--- NOTE | 2018-12-27 12:32 | PDOC ---
Provider Note Provider Note Vascular S: Patient seen and examined in room. States left leg pain improved since surgery. Tolerating diet O: Awake and alert HRR Non-labored Abdomen obese, soft, NTND Left groin with Prevena in place and functioning, foot warm, mild swelling. 2+ palpable DP pulse. A/P: Acutely ischemic left leg. POD #4 1. Left femoral thromboembolectomy. 2. Left iliac thromboembolectomy. 3. Intraoperative retrograde left iliac arteriogram. 4. Left common iliac artery angioplasty and stent utilizing a 10 x 37 mm Kristie stent expanded to 8 atmospheres of pressure. 5. Completion arteriogram. 6. Left femoral artery bovine pericardial patch angioplasty. Continue Prevena vac, remove prior to discharge Continue heparin gtt until patient can transition to oral anticoagulation, IM to manage patient can resume home medication. Continue Plavix daily for stent maintenance. Up ad ascencion JUS SUAREZ APRN Dec 27, 2018 12:32
--- NOTE | 2018-12-27 12:40 | NUR ---
Pharmacy Warfarin Dosing Note S:Pharmacy consulted to assist with anticoagulation therapy started with target INR: 2 -3 O:LEYDI TRUJILLO is a 83 year old F with Atrial Fibrillation LABS: Last INR: 1.3 Last HGB: 10.2 Last HCT: 32.4 Last PLT: 224 Last dose of 5 mg given on 12/26/18 at 1600 Previous Regimen: 3.5 MG /D Vitamin K given: N Drug Interaction Changes: Ongoing Drug Interactions: A:INR of 1.3 is below desired range. Target range for this patient is: 2 -3 P: Warfarin dose: 6 mg Today at 1600 Bridge Therapy: Heparin Therapeutic CONT Next INR due IN AM Pharmacy anticoagulation service will continue to follow. LUNA NIELSON [facility], 12/27/18 [id number]
[2018-12-27] MEDS: ANTI-COAG MONITOR BY PHARMACY. MC PRN (12:46)
--- NOTE | 2018-12-27 12:58 | PDOC ---
SUBJECTIVE ROS Stable, left leg pain improved since surgery. Tolerating diet OBJECTIVE Vital Signs Vital Signs Date Time Temp Pulse Resp B/P (MAP) Pulse Ox O2 Delivery O2 Flow Rate FiO2 12/27/18 11:00 98.0 80 18 157/75 (102) 99 Room Air 98.0 I & 0 Intake and Output 12/27/18 07:00 Intake Total 880 ml Output Total 650 ml Balance 230 ml Intake Oral 880 ml Output Urine Total 650 ml # Voids 3 # Bowel Movements 3 PHYSICAL EXAM Physical Exam GEN- NAD HEENT: OM moist NECK: supple HEART RRR LUNGS: Clear, Non labored ABDOMEN: Soft, obese. EXTREMITIES: NO LE edema SKIN: No rashes. NEUROLOGICAL: Grossly normal; - No CVA or SP tenderness DIAGNOSIS/ASSESSMENT Assessment & Plan WILLIAMS - Suspect ATN 2//2 Poor Po intake, Vomiting, SBO , UA unremarkable, Renal US Unremarkable , renal function stable E-Lytes Stable, Restart Losartan Urinary retention Bladder scan with significant PVR- suppportive care, avoid Nephrotoxins, Monitor for JOAQUINA CKD stage 3 - Follows with Dr. Cavanaugh Q 6 months Solitary Kidney - S/P Lt Nephrectomy SBO- No plan for surgery currently , KUB improved per GS NG clamped today Acutely ischemic left leg. s/p Left femoral and Lt Iliac thromboembolectomy., arteriogram HTN- antihypretensives, cardiology managing Restart Losartan , Renal function at baseline Chronic atrial fibrillation- Cardiology COMMENT/RELEVANT DATA Meds Current Medications Medications (Trade) Dose Ordered Sig/Nimco Start Time Stop Time Status Last Admin Dose Admin Acetaminophen (Tylenol Supp) 650 mg PRN Q6HRS PRN 12/17/18 10:00 12/25/18 10:27 DC Acetaminophen (Tylenol) 650 mg PRN Q6HRS PRN 12/25/18 10:30 Acetaminophen/ Hydrocodone Bitart (Lortab 5/325) 1 tab PRN Q4HRS PRN 12/25/18 10:45 Amlodipine Besylate (Norvasc) 5 mg STK-MED ONCE 12/26/18 16:08 12/26/18 16:09 DC Amoxicillin/ Clavulanate Potassium (Augmentin 875/ 125mg) 1 tab BID 12/26/18 09:00 12/27/18 09:46 1 TAB Atorvastatin Calcium (Lipitor) 20 mg QHS 12/25/18 21:00 12/26/18 22:09 20 MG Bupivacaine HCl (Sensorcaine-Mpf 0.25%) 10 ml 1X ONCE 12/21/18 12:00 12/21/18 12:01 DC 12/21/18 12:00 10 ML Bupivacaine HCl/ Epinephrine Bitart (Sensorcain-Epi 0.5%-1:898113 Mpf) 30 ml 1X ONCE 12/19/18 06:00 12/19/18 06:01 DC 12/19/18 06:00 30 ML Cefazolin Sodium 1 gm/Sodium Chloride 500 ml @ 500 mls/hr 1X ONCE 12/23/18 07:30 12/23/18 08:29 DC 12/23/18 08:33 Ceftriaxone Sodium (Rocephin) 1 gm Q24H 12/18/18 11:00 12/22/18 10:07 DC 12/21/18 12:42 1 GM Clonidine HCl (Catapres) 0.1 mg 1X ONCE 12/16/18 14:15 12/16/18 14:16 DC 12/16/18 15:12 0.1 MG Clopidogrel Bisulfate (Plavix) 75 mg [id number] 12/26/18 08:00 12/27/18 09:47 75 MG Dexamethasone Sodium Phosphate (Decadron) 4 mg STK-MED ONCE 12/23/18 09:06 12/23/18 09:06 DC Dextrose/Sodium Chloride 1,000 ml @ 125 mls/hr Q8H 12/21/18 11:15 12/23/18 11:59 DC 12/23/18 03:30 125 MLS/HR Diclofenac Sodium (Voltaren) 1 marilyn QID 12/21/18 13:00 12/27/18 09:48 1 MARILYN Enoxaparin Sodium (Lovenox 100mg Syringe) 100 mg DAILY 12/17/18 10:30 12/19/18 09:14 DC 12/17/18 12:49 100 MG Famotidine (Pepcid Vial) 20 mg STK-MED ONCE 12/23/18 09:06 12/23/18 09:07 DC Febuxostat (Uloric) 40 mg DAILY 12/26/18 09:00 12/27/18 09:46 40 MG Fentanyl Citrate (Fentanyl 2ml Vial) 100 mcg STK-MED ONCE 12/23/18 08:24 12/23/18 08:24 DC Glycopyrrolate (Robinul) 1 mg STK-MED ONCE 12/23/18 09:10 12/23/18 09:11 DC Heparin Sodium (Porcine) (Heparin Sodium) 10,000 unit STK-MED ONCE 12/23/18 09:23 12/23/18 09:23 DC Heparin Sodium (Porcine) 5000 unit/Sodium Chloride 505 ml @ 505 mls/hr 1X ONCE 12/23/18 07:30 12/23/18 08:29 DC Heparin Sodium/ Dextrose 500 ml @ 24 mls/hr CONT PRN PRN 12/23/18 06:30 12/26/18 18:55 15.5 MLS/HR Hydralazine HCl (Apresoline Inj) 10 mg PRN Q6HRS PRN 12/17/18 01:00 12/27/18 00:02 10 MG Hydrocortisone Sodium Succinate (Solu-CORTEF) 100 mg 1X ONCE 12/23/18 11:00 12/23/18 11:15 DC Hydromorphone HCl (Dilaudid) 0.5 mg PRN Q10MIN PRN 12/23/18 07:30 12/24/18 07:29 DC Info (Anti-Coagulation Monitoring By Pharmacy) 1 each PRN DAILY PRN 12/17/18 10:15 12/27/18 12:46 1 EACH Insulin Human Lispro (HumaLOG) 0-6 UNITS BG 300-399... Q6HRS 12/17/18 12:00 12/17/18 10:24 DC Iohexol (Omnipaque 300 Mg/ml) 50 ml STK-MED ONCE 12/23/18 09:28 12/23/18 09:28 DC 12/23/18 08:33 50 ML Labetalol HCl (Normodyne Iv Push) 5 mg PRN Q10MIN PRN 12/23/18 11:30 12/25/18 10:27 DC 12/23/18 11:24 5 MG Lactobacillus Rhamnosus (Culturelle) 1 cap BID 12/26/18 12:00 12/27/18 09:47 1 CAP Lidocaine HCl (Lidocaine Pf 2% Vial) 5 ml STK-MED ONCE 12/23/18 06:28 12/23/18 06:28 DC Lidocaine HCl (Xylocaine-Mpf 1% 2ml Vial) 2 ml PRN 1X PRN 12/23/18 07:30 12/24/18 07:29 DC Lidocaine HCl 16 ml/Sodium Bicarbonate 4 meq/ Miscellaneous 20 ml @ 20 mls/hr 1X ONCE 12/23/18 07:30 12/23/18 08:29 DC 12/23/18 08:33 Losartan Potassium (Cozaar) 50 mg DAILY 12/27/18 11:00 Methylprednisolone Acetate (DEPO-Medrol 40MG VIAL) 40 mg 1X ONCE 12/21/18 12:00 12/21/18 12:01 DC 12/21/18 12:00 40 MG Metoprolol Succinate (Toprol Xl) 25 mg DAILY 12/25/18 11:00 12/27/18 09:47 25 MG Midazolam HCl (Versed) 2 mg STK-MED ONCE 12/20/18 11:17 12/20/18 11:18 DC Morphine Sulfate (Morphine Sulfate) 1 mg PRN Q10MIN PRN 12/23/18 07:30 12/24/18 07:29 DC Neostigmine Methylsulfate (Bloxiverz) 10 mg STK-MED ONCE 12/20/18 11:16 12/20/18 11:17 DC Neostigmine Methylsulfate (Neostigmine Methylsulfate) 5 mg STK-MED ONCE 12/23/18 09:10 12/23/18 09:10 DC Ondansetron HCl (Zofran) 4 mg STK-MED ONCE 12/23/18 09:06 12/23/18 09:06 DC Pantoprazole Sodium (PROTONIX VIAL for IV PUSH) 40 mg DAILYAC 12/17/18 10:30 12/25/18 10:27 DC 12/25/18 06:23 40 MG Pantoprazole Sodium (Protonix) 40 mg DAILYAC 12/26/18 11:00 12/27/18 06:29 40 MG Phenylephrine HCl (Cheko-Synephrine Inj) 10 mg STK-MED ONCE 12/23/18 08:48 12/23/18 08:48 DC Phytonadione 10 mg/Dextrose 51 ml @ 102 mls/hr 1X ONCE 12/19/18 09:15 12/19/18 09:44 DC 12/19/18 10:37 102 MLS/HR Piperacillin Sod/ Tazobactam Sod 3.375 gm/Sodium Chloride 50 ml @ 100 mls/hr Q6HRS 12/22/18 12:00 12/26/18 08:41 DC 12/26/18 05:37 100 MLS/HR Potassium Chloride/Dextrose/ Sod Cl 1,000 ml @ 125 mls/hr Q8H 12/24/18 10:30 12/25/18 10:27 DC 12/25/18 06:44 125 MLS/HR Potassium Chloride (Klor-Con) 20 meq 1X ONCE 12/27/18 10:30 12/27/18 10:31 DC Prochlorperazine Edisylate (Compazine) 5 mg PACU PRN PRN 12/23/18 07:30 12/24/18 07:29 DC Propofol 20 ml @ As Directed STK-MED ONCE 12/23/18 06:28 12/23/18 06:28 DC Ringer's Solution 1,000 ml @ 30 mls/hr Q24H 12/23/18 07:21 12/23/18 19:20 DC Rocuronium [place] (Zemuron) 50 mg STK-MED ONCE 12/23/18 06:28 12/23/18 06:28 DC Sevoflurane (Ultane) 90 ml STK-MED ONCE 12/23/18 09:44 12/23/18 09:44 DC Sodium Chloride 1,000 ml @ 60 mls/hr [id number] 12/25/18 10:30 12/27/18 09:49 60 MLS/HR Succinylcholine Chloride (Anectine) 200 mg STK-MED ONCE 12/23/18 07:45 12/23/18 07:46 DC Warfarin Sodium (Coumadin Per Pharmacy) 1 each PRN DAILY PRN 12/26/18 08:00 12/27/18 12:37 1 EACH Warfarin Sodium (Coumadin) 6 mg 1X WARF ONCE 12/27/18 16:00 12/27/18 16:01 Lab Laboratory Tests Test 12/26/18 17:30 12/26/18 23:30 12/27/18 06:00 Heparin Anti-Xa Act, Unfractionated 0.36 IU/mL (0.30-0.70) 0.27 IU/mL (0.30-0.70) 0.45 IU/mL (0.30-0.70) White Blood Count 9.3 x10^3/uL (4.0-11.0) Red Blood Count 3.32 x10^6/uL (3.50-5.40) Hemoglobin 10.2 g/dL (12.0-15.5) Hematocrit 31.2 % (36.0-47.0) Mean Corpuscular Volume 94 fL (79-100) Mean Corpuscular Hemoglobin 31 pg (25-35) Mean Corpuscular Hemoglobin Concent 33 g/dL (31-37) Red Cell Distribution Width 13.8 % (11.5-14.5) Platelet Count 224 x10^3/uL (140-400) Prothrombin Time 16.1 SEC (11.7-14.0) Prothromb Time International Ratio 1.3 (0.8-1.1) Sodium Level 141 mmol/L (136-145) Potassium Level 3.4 mmol/L (3.5-5.1) Chloride Level 108 mmol/L (98-107) Carbon Dioxide Level 21 mmol/L (21-32) Anion Gap 12 (6-14) Blood Urea Nitrogen 21 mg/dL (7-20) Creatinine 1.7 mg/dL (0.6-1.0) Estimated GFR (Cockcroft-Gault) 34.9 Glucose Level 88 mg/dL (70-99) Calcium Level 8.1 mg/dL (8.5-10.1) Results All relevant outside records, renal labs, imaging studies, telemetry/EKG's were reviewed. RUBEN RUCKER MD Dec 27, 2018 12:58
--- NOTE | 2018-12-27 13:12 | PDOC ---
PROGRESS NOTES Subjective Subjective No new complaints. Objective Objective Vital Signs Date Time Temp Pulse Resp B/P (MAP) Pulse Ox O2 Delivery O2 Flow Rate FiO2 12/27/18 11:00 98.0 80 18 157/75 (102) 99 Room Air 98.0 12/24/18 15:00 4.0 Intake and Output 12/27/18 07:00 Intake Total 880 ml Output Total 650 ml Balance 230 ml Intake Oral 880 ml Output Urine Total 650 ml # Voids 3 # Bowel Movements 3 Physical Exam Physical Exam She is alert and comfortable and walking in her room and eating solid food but still have mucous from her rectum. Assessment Assessment Problems Medical Problems: (1) Epigastric pain Status: Acute (2) Epigastric pain Status: Acute (3) Nausea Status: Acute (4) Nausea Status: Acute (5) Small bowel obstruction Status: Acute Plan Plan of Intermediate with home health follow up when medically stable. Comment Review of Relevant I have reviewed the following items rubia (where applicable) has been applied. Labs Laboratory Tests Test 12/26/18 02:45 12/26/18 10:30 12/26/18 17:30 12/26/18 23:30 White Blood Count 9.1 x10^3/uL (4.0-11.0) Red Blood Count 3.44 x10^6/uL (3.50-5.40) Hemoglobin 10.6 g/dL (12.0-15.5) Hematocrit 32.4 % (36.0-47.0) Mean Corpuscular Volume 94 fL (79-100) Mean Corpuscular Hemoglobin 31 pg (25-35) Mean Corpuscular Hemoglobin Concent 33 g/dL (31-37) Red Cell Distribution Width 14.0 % (11.5-14.5) Platelet Count 208 x10^3/uL (140-400) Neutrophils (%) (Auto) 77 % (31-73) Lymphocytes (%) (Auto) 16 % (24-48) Monocytes (%) (Auto) 7 % (0-9) Eosinophils (%) (Auto) 0 % (0-3) Basophils (%) (Auto) 0 % (0-3) Neutrophils # (Auto) 7.0 x10^3/uL (1.8-7.7) Lymphocytes # (Auto) 1.4 x10^3/uL (1.0-4.8) Monocytes # (Auto) 0.7 x10^3/uL (0.0-1.1) Eosinophils # (Auto) 0.0 x10^3/uL (0.0-0.7) Basophils # (Auto) 0.0 x10^3/uL (0.0-0.2) Prothrombin Time 16.0 SEC (11.7-14.0) Prothromb Time International Ratio 1.3 (0.8-1.1) Heparin Anti-Xa Act, Unfractionated 0.16 IU/mL (0.30-0.70) 0.83 IU/mL (0.30-0.70) 0.36 IU/mL (0.30-0.70) 0.27 IU/mL (0.30-0.70) Sodium Level 143 mmol/L (136-145) Potassium Level 3.8 mmol/L (3.5-5.1) Chloride Level 110 mmol/L (98-107) Carbon Dioxide Level 23 mmol/L (21-32) Anion Gap 10 (6-14) Blood Urea Nitrogen 26 mg/dL (7-20) Creatinine 1.8 mg/dL (0.6-1.0) Estimated GFR (Cockcroft-Gault) 32.7 Glucose Level 88 mg/dL (70-99) Calcium Level 8.0 mg/dL (8.5-10.1) Test 12/27/18 06:00 White Blood Count 9.3 x10^3/uL (4.0-11.0) Red Blood Count 3.32 x10^6/uL (3.50-5.40) Hemoglobin 10.2 g/dL (12.0-15.5) Hematocrit 31.2 % (36.0-47.0) Mean Corpuscular Volume 94 fL (79-100) Mean Corpuscular Hemoglobin 31 pg (25-35) Mean Corpuscular Hemoglobin Concent 33 g/dL (31-37) Red Cell Distribution Width 13.8 % (11.5-14.5) Platelet Count 224 x10^3/uL (140-400) Prothrombin Time 16.1 SEC (11.7-14.0) Prothromb Time International Ratio 1.3 (0.8-1.1) Heparin Anti-Xa Act, Unfractionated 0.45 IU/mL (0.30-0.70) Sodium Level 141 mmol/L (136-145) Potassium Level 3.4 mmol/L (3.5-5.1) Chloride Level 108 mmol/L (98-107) Carbon Dioxide Level 21 mmol/L (21-32) Anion Gap 12 (6-14) Blood Urea Nitrogen 21 mg/dL (7-20) Creatinine 1.7 mg/dL (0.6-1.0) Estimated GFR (Cockcroft-Gault) 34.9 Glucose Level 88 mg/dL (70-99) Calcium Level 8.1 mg/dL (8.5-10.1) Laboratory Tests Test 12/26/18 17:30 12/26/18 23:30 12/27/18 06:00 Heparin Anti-Xa Act, Unfractionated 0.36 IU/mL (0.30-0.70) 0.27 IU/mL (0.30-0.70) 0.45 IU/mL (0.30-0.70) White Blood Count 9.3 x10^3/uL (4.0-11.0) Red Blood Count 3.32 x10^6/uL (3.50-5.40) Hemoglobin 10.2 g/dL (12.0-15.5) Hematocrit 31.2 % (36.0-47.0) Mean Corpuscular Volume 94 fL (79-100) Mean Corpuscular Hemoglobin 31 pg (25-35) Mean Corpuscular Hemoglobin Concent 33 g/dL (31-37) Red Cell Distribution Width 13.8 % (11.5-14.5) Platelet Count 224 x10^3/uL (140-400) Prothrombin Time 16.1 SEC (11.7-14.0) Prothromb Time International Ratio 1.3 (0.8-1.1) Sodium Level 141 mmol/L (136-145) Potassium Level 3.4 mmol/L (3.5-5.1) Chloride Level 108 mmol/L (98-107) Carbon Dioxide Level 21 mmol/L (21-32) Anion Gap 12 (6-14) Blood Urea Nitrogen 21 mg/dL (7-20) Creatinine 1.7 mg/dL (0.6-1.0) Estimated GFR (Cockcroft-Gault) 34.9 Glucose Level 88 mg/dL (70-99) Calcium Level 8.1 mg/dL (8.5-10.1) Microbiology 12/18/18 Urine Culture - Final, Complete 12/18/18 Urine Culture Result 1 (ALEJANDRINA) - Final, Complete Medications Current Medications Ondansetron HCl (Zofran) 4 mg 1X ONCE IM ; Start 12/16/18 at 09:30; Stop 12/16/18 at 09:31; Status DC Fentanyl Citrate (Fentanyl 2ml Vial) 75 mcg 1X ONCE IVP Last administered on 12/16/18at 09:46; Start 12/16/18 at 09:45; Stop 12/16/18 at 09:46; Status DC Ondansetron HCl (Zofran) 4 mg 1X ONCE IVP Last administered on 12/16/18at 09:51; Start 12/16/18 at 10:00; Stop 12/16/18 at 10:01; Status DC Sodium Chloride 1,000 ml @ 1,000 mls/hr 1X ONCE IV Last administered on 12/16/18at 10:40; Start 12/16/18 at 10:15; Stop 12/16/18 at 11:14; Status DC Clonidine HCl (Catapres) 0.1 mg 1X ONCE PO Last administered on 12/16/18at 15:12; Start 12/16/18 at 14:15; Stop 12/16/18 at 14:16; Status DC Fentanyl Citrate (Fentanyl 2ml Vial) 75 mcg 1X ONCE IVP ; Start 12/16/18 at 15:15; Stop 12/16/18 at 15:16; Status DC Ondansetron HCl (Zofran) 4 mg PRN Q8HRS PRN IV NAUSEA/VOMITING; Start 12/16/18 at 15:15; Stop 12/16/18 at 17:10; Status DC Fentanyl Citrate (Fentanyl 2ml Vial) 50 mcg PRN Q1HR PRN IV PAIN Last administered on 12/17/18at 07:28; Start 12/16/18 at 15:15; Stop 12/17/18 at 15:14; Status DC Sodium Chloride 1,000 ml @ 125 mls/hr Q8H IV ; Start 12/16/18 at 15:10; Stop 12/16/18 at 17:26; Status DC Acetaminophen (Tylenol) 650 mg PRN Q4HRS PRN PO FEVER; Start 12/16/18 at 15:15; Stop 12/17/18 at 15:14; Status DC Potassium Chloride/Dextrose/ Sod Cl 1,000 ml @ 100 mls/hr Q10H IV Last administered on 12/18/18at 01:27; Start 12/16/18 at 17:00; Stop 12/18/18 at 10:34; Status DC Ondansetron HCl (Zofran) 4 mg PRN Q6HRS PRN IVP NAUSEA/VOMITING Last administered on 12/18/18at 21:17; Start 12/16/18 at 17:00 Hydralazine HCl (Apresoline Inj) 10 mg PRN Q6HRS PRN IVP ELEVATED BP, SEE COMMENTS Last administered on 12/27/18at 00:02; Start 12/17/18 at 01:00 Enoxaparin Sodium (Lovenox 100mg Syringe) 100 mg DAILY SQ Last administered on 12/17/18at 12:49; Start 12/17/18 at 10:30; Stop 12/19/18 at 09:14; Status DC Info (Anti-Coagulation Monitoring By Pharmacy) 1 each PRN DAILY PRN MC SEE COMMENTS Last administered on 12/27/18at 12:46; Start 12/17/18 at 10:15 Pantoprazole Sodium (PROTONIX VIAL for IV PUSH) 40 mg DAILYAC IVP Last administered on 12/25/18at 06:23; Start 12/17/18 at 10:30; Stop 12/25/18 at 10:27; Status DC Acetaminophen (Tylenol Supp) 650 mg PRN Q6HRS PRN [place] HEADACHE / TEMP; Start 12/17/18 at 10:00; Stop 12/25/18 at 10:27; Status DC Fentanyl Citrate (Fentanyl 2ml Vial) 50 mcg PRN Q4HRS PRN IVP PAIN Last administered on 12/23/18at 22:01; Start 12/17/18 at 10:00; Stop 12/27/18 at 09:54; Status DC Insulin Human Lispro (HumaLOG) 0-6 UNITS BG 300-399... Q6HRS SQ ; Start 12/17/18 at 12:00; Stop 12/17/18 at 10:24; Status DC Ceftriaxone Sodium (Rocephin) 1 gm Q24H IVP Last administered on 12/21/18at 12:42; Start 12/18/18 at 11:00; Stop 12/22/18 at 10:07; Status DC Dextrose/Sodium Chloride 1,000 ml @ 150 mls/hr Q6H40M IV Last administered on 12/20/18at 03:00; Start 12/18/18 at 10:30; Stop 12/20/18 at 09:52; Status DC Bupivacaine HCl/ Epinephrine Bitart (Sensorcain-Epi 0.5%-1:[id number] Mpf) 30 ml 1X ONCE INJ ; Start 12/18/18 at 15:00; Stop 12/18/18 at 15:01; Status Cancel Bupivacaine HCl/ Epinephrine Bitart (Sensorcain-Epi 0.5%-1:[id number] Mpf) 30 ml 1X ONCE INJ Last administered on 12/19/18at 06:00; Start 12/19/18 at 06:00; Stop 12/19/18 at 06:01; Status DC Ondansetron HCl (Zofran) 4 mg PRN Q6HRS PRN IV NAUSEA/VOMITING; Start 12/19/18 at 07:00; Stop 12/20/18 at 06:59; Status DC Fentanyl Citrate (Fentanyl 2ml Vial) 25 mcg PRN Q5MIN PRN IV MILD PAIN 1-3; Start 12/19/18 at 07:00; Stop 12/20/18 at 06:59; Status DC Fentanyl Citrate (Fentanyl 2ml Vial) 50 mcg PRN Q5MIN PRN IV MODERATE TO SEVERE PAIN; Start 12/19/18 at 07:00; Stop 12/20/18 at 06:59; Status DC Morphine Sulfate (Morphine Sulfate) 1 mg PRN Q10MIN PRN IV SEVERE PAIN 7-10; Start 12/19/18 at 07:00; Stop 12/20/18 at 06:59; Status DC Ringer's Solution 1,000 ml @ 30 mls/hr Q24H IV ; Start 12/19/18 at 07:00; Stop 12/19/18 at 18:59; Status DC Lidocaine HCl (Xylocaine-Mpf 1% 2ml Vial) 2 ml PRN 1X PRN ID PRIOR TO IV START; Start 12/19/18 at 07:00; Stop 12/20/18 at 06:59; Status DC Hydromorphone HCl (Dilaudid) 0.5 mg PRN Q10MIN PRN IV SEV PAIN, Second choice; Start 12/19/18 at 07:00; Stop 12/20/18 at 06:59; Status DC Prochlorperazine Edisylate (Compazine) 5 mg PACU PRN PRN IV NAUSEA, MRX1; Start 12/19/18 at 07:00; Stop 12/20/18 at 06:59; Status DC Phytonadione 10 mg/Dextrose 51 ml @ 102 mls/hr 1X ONCE IV Last administered on 12/19/18at 10:37; Start 12/19/18 at 09:15; Stop 12/19/18 at 09:44; Status DC Potassium Chloride/Dextrose/ Sod Cl 1,000 ml @ 150 mls/hr Q6H40M IV Last administered on 12/21/18at 03:26; Start 12/20/18 at 11:00; Stop 12/21/18 at 11:06; Status DC Lidocaine HCl (Lidocaine Pf 2% Vial) 5 ml STK-MED ONCE .ROUTE ; Start 12/20/18 at 11:14; Stop 12/20/18 at 11:14; Status DC Neostigmine Methylsulfate (Bloxiverz) 10 mg STK-MED ONCE .ROUTE ; Start 12/20/18 at 11:16; Stop 12/20/18 at 11:17; Status DC Rocuronium [place] (Zemuron) 50 mg STK-MED ONCE .ROUTE ; Start 12/20/18 at 11:17; Stop 12/20/18 at 11:17; Status DC Fentanyl Citrate (Fentanyl 2ml Vial) 100 mcg STK-MED ONCE .ROUTE ; Start 12/20/18 at 11:17; Stop 12/20/18 at 11:18; Status DC Midazolam HCl (Versed) 2 mg STK-MED ONCE .ROUTE ; Start 12/20/18 at 11:17; Stop 12/20/18 at 11:18; Status DC Glycopyrrolate (Robinul) 1 mg STK-MED ONCE .ROUTE ; Start 12/20/18 at 11:17; Stop 12/20/18 at 11:18; Status DC Succinylcholine Chloride (Anectine) 200 mg STK-MED ONCE .ROUTE ; Start 12/20/18 at 11:21; Stop 12/20/18 at 11:21; Status DC Diclofenac Sodium (Voltaren) 1 marilyn QID TP Last administered on 12/27/18at 09:48; Start 12/21/18 at 13:00 Dextrose/Sodium Chloride 1,000 ml @ 125 mls/hr Q8H IV Last administered on 12/23/18at 03:30; Start 12/21/18 at 11:15; Stop 12/23/18 at 11:59; Status DC Methylprednisolone Acetate (DEPO-Medrol 40MG VIAL) 40 mg 1X ONCE IM Last administered on 12/21/18at 12:00; Start 12/21/18 at 12:00; Stop 12/21/18 at 12:01; Status DC Bupivacaine HCl (Sensorcaine-Mpf 0.25%) 10 ml 1X ONCE IJ Last administered on 12/21/18at 12:00; Start 12/21/18 at 12:00; Stop 12/21/18 at 12:01; Status DC Piperacillin Sod/ Tazobactam Sod 3.375 gm/Sodium Chloride 50 ml @ 100 mls/hr Q6HRS IV Last administered on 12/26/18at 05:37; Start 12/22/18 at 12:00; Stop 12/26/18 at 08:41; Status DC Heparin Sodium/ Dextrose 500 ml @ 32 mls/min CONT PRN IV SEE PROTOCOL; Start 12/22/18 at 14:30; Stop 12/22/18 at 20:12; Status DC Heparin Sodium (Porcine) (Heparin Sodium) 3,050 unit PRN Q6HRS PRN IV FOR UFH LEVEL LESS THAN 0.2; Start 12/22/18 at 14:30; Stop 12/22/18 at 20:10; Status DC Heparin Sodium (Porcine) (Heparin Sodium) 1,550 unit PRN Q6HRS PRN IV FOR UFH LEVEL 0.2 - 0.29; Start 12/22/18 at 14:30; Stop 12/22/18 at 20:10; Status DC Heparin Sodium (Porcine) (Heparin Sodium) 5,000 unit Q8HRS SQ Last administered on 12/22/18at 22:11; Start 12/22/18 at 22:00; Stop 12/23/18 at 06:10; Status DC Fentanyl Citrate (Fentanyl 2ml Vial) 25 mcg 1X ONCE IVP Last administered on 12/23/18at 03:21; Start 12/23/18 at 03:30; Stop 12/23/18 at 03:31; Status DC Heparin Sodium (Porcine) (Heparin Sodium) 5,000 unit 1X STAT IV ; Start 12/23/18 at 05:58; Stop 12/23/18 at 05:59; Status UNV Heparin Sodium/ Dextrose 500 ml @ 0 mls/hr CONT PRN IV SEE I/O RECORD; Start 12/23/18 at 06:00; Status UNV Heparin Sodium (Porcine) (Heparin Sodium) 5,000 unit 1X ONCE IV Last administered on 12/23/18at 06:16; Start 12/23/18 at 06:30; Stop 12/23/18 at 06:31; Status DC Heparin Sodium/ Dextrose 500 ml @ 24 mls/hr CONT PRN PRN IV DVT Last administered on 12/26/18at 18:55; Start 12/23/18 at 06:30 Heparin Sodium (Porcine) (Heparin Sodium) 3,050 unit PRN Q6HRS PRN IV FOR UFH LEVEL LESS THAN 0.2 Last administered on 12/27/18at 00:08; Start 12/23/18 at 06:15 Heparin Sodium (Porcine) (Heparin Sodium) 1,550 unit PRN Q6HRS PRN IV FOR UFH LEVEL 0.2 - 0.29; Start 12/23/18 at 06:15 Propofol 20 ml @ As Directed STK-MED ONCE IV ; Start 12/23/18 at 06:28; Stop 12/23/18 at 06:28; Status DC Lidocaine HCl (Lidocaine Pf 2% Vial) 5 ml STK-MED ONCE .ROUTE ; Start 12/23/18 at 06:28; Stop 12/23/18 at 06:28; Status DC Fentanyl Citrate (Fentanyl 2ml Vial) 100 mcg STK-MED ONCE .ROUTE ; Start 12/23/18 at 06:28; Stop 12/23/18 at 06:28; Status DC Rocuronium [place] (Zemuron) 50 mg STK-MED ONCE .ROUTE ; Start 12/23/18 at 06:28; Stop 12/23/18 at 06:28; Status DC Heparin Sodium (Porcine) 5000 unit/Sodium Chloride 505 ml @ 505 mls/hr 1X ONCE IRR ; Start 12/23/18 at 07:30; Stop 12/23/18 at 08:29; Status DC Cefazolin Sodium 1 gm/Sodium Chloride 500 ml @ 500 mls/hr 1X ONCE IRR Last administered on 12/23/18at 08:33; Start 12/23/18 at 07:30; Stop 12/23/18 at 08:29; Status DC Lidocaine HCl 16 ml/Sodium Bicarbonate 4 meq/ Miscellaneous 20 ml @ 20 mls/hr 1X ONCE ID Last administered on 12/23/18at 08:33; Start 12/23/18 at 07:30; Stop 12/23/18 at 08:29; Status DC Ondansetron HCl (Zofran) 4 mg PRN Q6HRS PRN IV NAUSEA/VOMITING; Start 12/23/18 at 07:30; Stop 12/24/18 at 07:29; Status DC Fentanyl Citrate (Fentanyl 2ml Vial) 25 mcg PRN Q5MIN PRN IV MILD PAIN 1-3; Start 12/23/18 at 07:30; Stop 12/24/18 at 07:29; Status DC Fentanyl Citrate (Fentanyl 2ml Vial) 50 mcg PRN Q5MIN PRN IV MODERATE TO SEVERE PAIN; Start 12/23/18 at 07:30; Stop 12/24/18 at 07:29; Status DC Morphine Sulfate (Morphine Sulfate) 1 mg PRN Q10MIN PRN IV SEVERE PAIN 7-10; Start 12/23/18 at 07:30; Stop 12/24/18 at 07:29; Status DC Ringer's Solution 1,000 ml @ 30 mls/hr Q24H IV ; Start 12/23/18 at 07:21; Stop 12/23/18 at 19:20; Status DC Lidocaine HCl (Xylocaine-Mpf 1% 2ml Vial) 2 ml PRN 1X PRN ID PRIOR TO IV START; Start 12/23/18 at 07:30; Stop 12/24/18 at 07:29; Status DC Hydromorphone HCl (Dilaudid) 0.5 mg PRN Q10MIN PRN IV SEV PAIN, Second choice; Start 12/23/18 at 07:30; Stop 12/24/18 at 07:29; Status DC Prochlorperazine Edisylate (Compazine) 5 mg PACU PRN PRN IV NAUSEA, MRX1; Start 12/23/18 at 07:30; Stop 12/24/18 at 07:29; Status DC Succinylcholine Chloride (Anectine) 200 mg STK-MED ONCE .ROUTE ; Start 12/23/18 at 07:45; Stop 12/23/18 at 07:46; Status DC Fentanyl Citrate (Fentanyl 2ml Vial) 100 mcg STK-MED ONCE .ROUTE ; Start 12/23/18 at 08:24; Stop 12/23/18 at 08:24; Status DC Labetalol HCl (Normodyne Iv Push) 10 mg 1X ONCE IVP ; Start 12/23/18 at 08:30; Stop 12/23/18 at 08:31; Status DC Phenylephrine HCl (Cheko-Synephrine Inj) 10 mg STK-MED ONCE .ROUTE ; Start 12/23/18 at 08:48; Stop 12/23/18 at 08:48; Status DC Iohexol (Omnipaque 300 Mg/ml) 50 ml STK-MED ONCE .ROUTE Last administered on 12/23/18at 08:33; Start 12/23/18 at 09:05; Stop 12/23/18 at 09:05; Status DC Hydrocortisone Sodium Succinate (Solu-CORTEF) 100 mg STK-MED ONCE .ROUTE ; Start 12/23/18 at 09:06; Stop 12/23/18 at 09:06; Status DC Dexamethasone Sodium Phosphate (Decadron) 4 mg STK-MED ONCE .ROUTE ; Start 12/23/18 at 09:06; Stop 12/23/18 at 09:06; Status DC Ondansetron HCl (Zofran) 4 mg STK-MED ONCE .ROUTE ; Start 12/23/18 at 09:06; Stop 12/23/18 at 09:06; Status DC Famotidine (Pepcid Vial) 20 mg STK-MED ONCE .ROUTE ; Start 12/23/18 at 09:06; Stop 12/23/18 at 09:07; Status DC Neostigmine Methylsulfate (Neostigmine Methylsulfate) 5 mg STK-MED ONCE .ROUTE ; Start 12/23/18 at 09:10; Stop 12/23/18 at 09:10; Status DC Glycopyrrolate (Robinul) 1 mg STK-MED ONCE .ROUTE ; Start 12/23/18 at 09:10; Stop 12/23/18 at 09:11; Status DC Heparin Sodium (Porcine) (Heparin Sodium) 10,000 unit STK-MED ONCE .ROUTE ; Start 12/23/18 at 09:23; Stop 12/23/18 at 09:23; Status DC Iohexol (Omnipaque 300 Mg/ml) 50 ml STK-MED ONCE .ROUTE Last administered on 12/23/18at 08:33; Start 12/23/18 at 09:28; Stop 12/23/18 at 09:28; Status DC Sevoflurane (Ultane) 90 ml STK-MED ONCE IH ; Start 12/23/18 at 09:44; Stop 12/23/18 at 09:44; Status DC Hydrocortisone Sodium Succinate (Solu-CORTEF) 100 mg 1X ONCE IV ; Start at 11:00; Stop 12/23/18 at 11:15; Status DC Labetalol HCl (Normodyne Iv Push) 5 mg PRN Q10MIN PRN IVP HYPERTENSION Last administered on 12/23/18at 11:24; Start 12/23/18 at 11:30; Stop 12/25/18 at 10:27; Status DC Potassium Chloride/Dextrose/ Sod Cl 1,000 ml @ 125 mls/hr Q8H IV Last administered on 12/24/18at 08:24; Start 12/23/18 at 12:00; Stop 12/24/18 at 09:51; Status DC Potassium Chloride/Dextrose/ Sod Cl 1,000 ml @ 125 mls/hr Q8H IV Last administered on 12/25/18at 06:44; Start 12/24/18 at 10:30; Stop 12/25/18 at 10:27; Status DC Clopidogrel Bisulfate (Plavix) 75 mg 1X ONCE PO ; Start 12/25/18 at 09:15; Stop 12/25/18 at 09:16; Status DC Amlodipine Besylate (Norvasc) 5 mg DAILY PO Last administered on 12/26/18at 10:08; Start 12/25/18 at 12:00; Stop 12/26/18 at 10:26; Status DC Atorvastatin Calcium (Lipitor) 20 mg QHS PO Last administered on 12/26/18 22:09; Start 12/25/18 at 21:00 Metoprolol Succinate (Toprol Xl) 25 mg DAILY PO Last administered on 12/27/18 09:47; Start 12/25/18 at 11:00 Acetaminophen (Tylenol) 650 mg PRN Q6HRS PRN PO MILD PAIN / TEMP; Start 12/25/18 at 10:30 Sodium Chloride 1,000 ml @ 60 mls/hr [id number] IV Last administered on 12/27/18 09:49; Start 12/25/18 at 10:30 Acetaminophen/ Hydrocodone Bitart (Lortab 5/325) 1 tab PRN Q4HRS PRN PO PAIN; Start 12/25/18 at 10:45 Febuxostat (Uloric) 40 mg DAILY PO Last administered on 12/27/18 09:46; Start 12/26/18 at 09:00 Clopidogrel Bisulfate (Plavix) 75 mg DAILYWBKFT PO Last administered on 12/27/18 09:47; Start 12/26/18 at 08:00 Warfarin Sodium (Coumadin Per Pharmacy) 1 each PRN DAILY PRN MC SEE COMMENTS Last administered on 12/27/18 12:37; Start 12/26/18 at 08:00 Warfarin Sodium (Coumadin) 4 mg 1X WARF ONCE PO ; Start 12/25/18 at 16:47; Stop 12/25/18 at 16:48; Status DC Amoxicillin/ Clavulanate Potassium (Augmentin 875/ 125mg) 1 tab BID PO Last administered on 12/27/18 09:46; Start 12/26/18 at 09:00 Lactobacillus Rhamnosus (Culturelle) 1 cap BID PO Last administered on 12/27/18 09:47; Start 12/26/18 at 12:00 Amlodipine Besylate (Norvasc) 10 mg DAILY PO Last administered on 12/27/18 09:47; Start 12/27/18 at 09:00 Warfarin Sodium (Coumadin) 5 mg DAILY16 PO Last administered on 12/26/18 16:49; Start 12/26/18 at 16:00; Stop 12/27/18 at 12:28; Status DC Amlodipine Besylate (Norvasc) 5 mg 1X ONCE PO ; Start 12/26/18 at 10:30; Stop 12/26/18 at 16:06; Status DC Pantoprazole Sodium (Protonix) 40 mg DAILYAC PO Last administered on 12/27/18at 06:29; Start 12/26/18 at 11:00 Amlodipine Besylate (Norvasc) 5 mg 1X ONCE PO Last administered on 12/26/18at 16:48; Start 12/26/18 at 16:15; Stop 12/26/18 at 16:16; Status DC Amlodipine Besylate (Norvasc) 5 mg STK-MED ONCE .ROUTE ; Start 12/26/18 at 16:08; Stop 12/26/18 at 16:09; Status DC Potassium Chloride (Klor-Con) 20 meq 1X ONCE PO ; Start 12/27/18 at 10:30; Stop 12/27/18 at 10:31; Status DC Losartan Potassium (Cozaar) 50 mg DAILY PO ; Start 12/27/18 at 11:00 Warfarin Sodium (Coumadin) 6 mg 1X WARF ONCE PO ; Start 12/27/18 at 16:00; Stop 12/27/18 at 16:01 Active Scripts Active Reported Losartan Potassium 100 Mg Tablet 100 Mg PO DAILY Multi-Vitamin Daily (Multivitamin) 1 Each Tablet 1 Tab PO DAILY 30 Days Coumadin (Warfarin Sodium) 4 Mg Tablet 3.5 Mg PO DAILY Atorvastatin Calcium 20 Mg Tablet 1 Tab PO DAILY Toprol Xl (Metoprolol Succinate) 50 Mg Tab.er.24h 25 Mg PO DAILY Amlodipine Besylate 10 Mg Tablet 10 Mg PO DAILY Uloric (Febuxostat) 40 Mg Tablet 1 Tab PO DAILY Detrol La (Tolterodine Tartrate) 4 Mg Cap.er.24h 1 Cap PO DAILY Vitals/I & O Vital Sign - Last 24 Hours 12/26/18 12/26/18 12/26/18 12/26/18 15:00 16:48 16:55 19:04 Temp 97.9 98.5 97.9 98.5 Pulse 85 81 79 92 Resp 20 18 B/P (MAP) 190/90 (123) 185/88 185/88 162/105 (124) Pulse Ox 98 O2 Delivery Room Air Room Air 10/29/19 10/29/19 10/30/19 10/30/19 19:05 22:03 00:02 02:06 Temp 98.2 98.0 98.2 98.0 Pulse 96 96 94 Resp 16 18 B/P (MAP) 176/97 (123) 176/97 154/78 (103) Pulse Ox 99 98 O2 Delivery Room Air Room Air Room Air 12/27/18 12/27/18 12/27/18 12/27/18 07:00 08:00 09:47 09:47 Temp 97.4 97.4 Pulse 89 112 98 Resp 18 B/P (MAP) 157/70 (99) 157/70 157/70 Pulse Ox 100 O2 Delivery Room Air Room Air 12/27/18 11:00 Temp 98.0 98.0 Pulse 80 Resp 18 B/P (MAP) 157/75 (102) Pulse Ox 99 O2 Delivery Room Air Intake and Output 12/26/18 12/26/18 12/27/18 15:00 23:00 07:00 Intake Total 540 ml 240 ml 100 ml Output Total 175 ml 475 ml Balance 540 ml 65 ml -375 ml ERIKA NELSON MD Dec 27, 2018 13:12
[2018-12-27] MEDS: LOSARTAN POTASSIUM 50 MG TABLET. PO SCH (13:13)
[2018-12-27 15:00] VITALS: BP 172/77
[2018-12-27] MEDS ORDERED: WARFARIN 3 MG TABLET. PO ONE (16:00)
[2018-12-27] MEDS: HEPARIN 25,000UTS/500ML PREMIX 500 ML IV PRN (16:43)
[2018-12-27 19:59] VITALS: BP 160/81
[2018-12-27] MEDS: ATORVASTATIN CALCIUM 20 MG TABLET PO SCH (21:58)
[2018-12-27 22:17] VITALS: BP 156/86
[2018-12-28 02:00] VITALS: BP 150/76
[2018-12-28 07:00] VITALS: BP 178/81
--- NOTE | 2018-12-28 07:19 | PDOC ---
Infectious Disease Note Subjective Subjective Feeling better - hoping to go home soon Comfortable Tolerating diet advance No F/C/N/V/SOA + Flatus/BM ROS ROS o/w neg Vital Sign Vital Signs Vital Signs Date Time Temp Pulse Resp B/P (MAP) Pulse Ox O2 Delivery O2 Flow Rate FiO2 12/28/18 02:00 98.5 78 16 150/76 (100) 98 Room Air 98.5 Physical Exam PHYSICAL EXAM GENERAL: Propped up in bed, alert HEENT: Oral cavity clear, NECK: Supple, no JVD. LUNGS: Clear bilaterally. HEART: S1 S2, Irregularly irregular. ABDOMEN: Obese, soft, NT : Sheldon - out EXTREMITIES: No edema, no cyanosis. [place] left groin in place, DP palpable SKIN: Warm, dry. No generalized rash. NEUROLOGIC: Alert and oriented x 3, grossly nonfocal. PIV Labs Lab Laboratory Tests Test 12/27/18 12:05 Heparin Anti-Xa Act, Unfractionated 0.55 IU/mL (0.30-0.70) Micro Microbiology 12/18/18 Urine Culture - Final, Complete 12/18/18 Urine Culture Result 1 (ALEJANDRINA) - Final, Complete Objective Assessment Leukocytosis, likely multifactorial from ileus versus small bowel obstruction versus urinary tract infection. better Urinary retention, with Sheldon in place this admission Chronic abdominal pain, with nausea and vomiting on presentation -better. Acute kidney injury on chronic kidney disease, with underlying left nephrectomy.- better Ileus versus small bowel obstruction- tolerating clears Pyuria UC lactobacillus Acute onset left lower extremity ischemia s/p thrombectomy, angioplasty and stent, 12/23 h/o A-fib HTN Plan Plan of Care Discontinue zosyn dose Augmentin would d/c 12/29 s/p dexamethasone, 12/23 Gen surgery/Vascular following ID to sign off D/w nursing ITALIA KRUEGER MD Dec 28, 2018 07:19
[2018-12-28 07:21] LABS: PROTHROMBIN TIME PATIENT 16.4 SEC (11.7-14.0)
[2018-12-28 07:23] LABS: CALCIUM 8.4 mg/dL (8.5-10.1); CREATININE 1.7 mg/dL (0.6-1.0); GFR 34.9; MAGNESIUM 0.9 mg/dL (1.8-2.4); POTASSIUM 3.8 mmol/L (3.5-5.1)
[2018-12-28] MEDS: LACTOBACILLUS RHAMNOSUS GG 1 CAPSULE. PO SCH ×2 (08:44→21:34)
[2018-12-28] MEDS: amLODIPine BESYLATE 10 MG TABLET PO SCH (08:45)
[2018-12-28] MEDS: METOPROLOL SUCC 24HR ER 25 MG TAB.ER.24H. PO SCH (08:45)
[2018-12-28] MEDS: PANTOPRAZOLE 40 MG TABLET.DR. PO SCH (08:45)
[2018-12-28] MEDS: CLOPIDOGREL BISULFATE 75 MG TABLET PO SCH (08:45)
[2018-12-28] MEDS: FEBUXOSTAT 40 MG TABLET PO SCH (08:45)
[2018-12-28] MEDS: AMOXICILLIN/K CLAV 875/125MG TABLET. PO SCH ×2 (08:45→21:34)
[2018-12-28] MEDS: LOSARTAN POTASSIUM 50 MG TABLET. PO SCH (08:46)
[2018-12-28] MEDS: DICLOFENAC SODIUM 1% TOPICAL GEL 100GM TUBE. TP SCH ×4 (08:46→21:36)
--- NOTE | 2018-12-28 09:30 | PDOC ---
Subjective: Subjective: Eating and stooling without issue, denies pain, wants to go home. Objective: Objective: D/w nurse - awaiting therapeutic INR. Vital Signs: Vital Signs Date Time Temp Pulse Resp B/P (MAP) Pulse Ox O2 Delivery O2 Flow Rate FiO2 12/28/18 08:46 80 178/81 12/28/18 07:00 98.8 16 98 Room Air 98.8 Labs: Laboratory Tests Test 12/27/18 12:05 12/28/18 06:15 Heparin Anti-Xa Act, Unfractionated 0.55 IU/mL 0.40 IU/mL Prothrombin Time 16.4 SEC Prothromb Time International Ratio 1.4 Sodium Level 143 mmol/L Potassium Level 3.8 mmol/L Chloride Level 111 mmol/L Carbon Dioxide Level 22 mmol/L Anion Gap 10 Blood Urea Nitrogen 20 mg/dL Creatinine 1.7 mg/dL Estimated GFR (Cockcroft-Gault) 34.9 Glucose Level 91 mg/dL Calcium Level 8.4 mg/dL Magnesium Level 0.9 mg/dL PE: GEN: NAD, sitting up in bed LUNGS: room air HEART: RR ABD: S/ND/NT NEURO/PSYCH: A & O 3 A/P: SBO - resolved -- DC per primary. NATHANIEL SMALL Dec 28, 2018 09:30
--- NOTE | 2018-12-28 09:44 | PDOC ---
SURGICAL PROGRESS NOTE Subjective Pt is still doing well clinically, she is eating well. SBO resolved and pt has resumed regular diet. Pts abdomen remains soft with no peritoneal signs. CBC remains normal and pt remains afebrile. Waiting on her INR to reach 2.0 with Coumadin before d/c. NO surgery planned at this time. Vital Signs Vital Signs Date Time Temp Pulse Resp B/P (MAP) Pulse Ox O2 Delivery O2 Flow Rate FiO2 12/28/18 08:46 80 178/81 12/28/18 07:00 98.8 16 98 Room Air 98.8 I&O Intake and Output 12/28/18 06:59 Intake Total 640 ml Output Total 800 ml Balance -160 ml Intake Oral 640 ml Output Urine Total 300 ml Urine/Stool Mix 500 ml # Voids 3 # Bowel Movements 3 Labs Laboratory Tests Test 12/26/18 10:30 12/26/18 17:30 12/26/18 23:30 12/27/18 06:00 Heparin Anti-Xa Act, Unfractionated 0.83 IU/mL (0.30-0.70) 0.36 IU/mL (0.30-0.70) 0.27 IU/mL (0.30-0.70) 0.45 IU/mL (0.30-0.70) White Blood Count 9.3 x10^3/uL (4.0-11.0) Red Blood Count 3.32 x10^6/uL (3.50-5.40) Hemoglobin 10.2 g/dL (12.0-15.5) Hematocrit 31.2 % (36.0-47.0) Mean Corpuscular Volume 94 fL (79-100) Mean Corpuscular Hemoglobin 31 pg (25-35) Mean Corpuscular Hemoglobin Concent 33 g/dL (31-37) Red Cell Distribution Width 13.8 % (11.5-14.5) Platelet Count 224 x10^3/uL (140-400) Prothrombin Time 16.1 SEC (11.7-14.0) Prothromb Time International Ratio 1.3 (0.8-1.1) Sodium Level 141 mmol/L (136-145) Potassium Level 3.4 mmol/L (3.5-5.1) Chloride Level 108 mmol/L (98-107) Carbon Dioxide Level 21 mmol/L (21-32) Anion Gap 12 (6-14) Blood Urea Nitrogen 21 mg/dL (7-20) Creatinine 1.7 mg/dL (0.6-1.0) Estimated GFR (Cockcroft-Gault) 34.9 Glucose Level 88 mg/dL (70-99) Calcium Level 8.1 mg/dL (8.5-10.1) Test 12/27/18 12:05 12/28/18 06:15 Heparin Anti-Xa Act, Unfractionated 0.55 IU/mL (0.30-0.70) 0.40 IU/mL (0.30-0.70) Prothrombin Time 16.4 SEC (11.7-14.0) Prothromb Time International Ratio 1.4 (0.8-1.1) Sodium Level 143 mmol/L (136-145) Potassium Level 3.8 mmol/L (3.5-5.1) Chloride Level 111 mmol/L (98-107) Carbon Dioxide Level 22 mmol/L (21-32) Anion Gap 10 (6-14) Blood Urea Nitrogen 20 mg/dL (7-20) Creatinine 1.7 mg/dL (0.6-1.0) Estimated GFR (Cockcroft-Gault) 34.9 Glucose Level 91 mg/dL (70-99) Calcium Level 8.4 mg/dL (8.5-10.1) Magnesium Level 0.9 mg/dL (1.8-2.4) Laboratory Tests Test 12/27/18 12:05 12/28/18 06:15 Heparin Anti-Xa Act, Unfractionated 0.55 IU/mL (0.30-0.70) 0.40 IU/mL (0.30-0.70) Prothrombin Time 16.4 SEC (11.7-14.0) Prothromb Time International Ratio 1.4 (0.8-1.1) Sodium Level 143 mmol/L (136-145) Potassium Level 3.8 mmol/L (3.5-5.1) Chloride Level 111 mmol/L (98-107) Carbon Dioxide Level 22 mmol/L (21-32) Anion Gap 10 (6-14) Blood Urea Nitrogen 20 mg/dL (7-20) Creatinine 1.7 mg/dL (0.6-1.0) Estimated GFR (Cockcroft-Gault) 34.9 Glucose Level 91 mg/dL (70-99) Calcium Level 8.4 mg/dL (8.5-10.1) Magnesium Level 0.9 mg/dL (1.8-2.4) Problem List Problems Medical Problems: (1) Epigastric pain Status: Acute (2) Epigastric pain Status: Acute (3) Nausea Status: Acute (4) Nausea Status: Acute (5) Small bowel obstruction Status: Acute JASMYN MYERS MD Dec 28, 2018 09:44
--- NOTE | 2018-12-28 09:49 | PDOC ---
SUBJECTIVE ROS Stable, wants to go home OBJECTIVE Vital Signs Vital Signs Date Time Temp Pulse Resp B/P (MAP) Pulse Ox O2 Delivery O2 Flow Rate FiO2 12/28/18 08:46 80 178/81 12/28/18 07:00 98.8 16 98 Room Air 98.8 I & 0 Intake and Output 12/28/18 07:00 Intake Total 640 ml Output Total 800 ml Balance -160 ml Intake Oral 640 ml Output Urine Total 300 ml Urine/Stool Mix 500 ml # Voids 3 # Bowel Movements 3 PHYSICAL EXAM Physical Exam GEN- NAD HEENT: OM moist NECK: supple HEART RRR LUNGS: Clear, Non labored ABDOMEN: Soft, obese. EXTREMITIES: NO LE edema SKIN: No rashes. NEUROLOGICAL: Grossly normal; - No CVA or SP tenderness DIAGNOSIS/ASSESSMENT Assessment & Plan WILLIAMS - Suspect ATN 2//2 Poor Po intake, Vomiting, SBO , UA unremarkable, Renal US Unremarkable , renal function stable E-Lytes Stable, Restart Losartan Urinary retention Bladder scan with significant PVR initially suppportive care, avoid Nephrotoxins, Monitor for JOAQUINA keep scheduled appt with Dr. Cavanaugh after dc CKD stage 3 - Follows with Dr. Cavanaugh Q 6 months Solitary Kidney - S/P Lt Nephrectomy SBO- No plan for surgery currently , KUB improved per GS NG clamped today Acutely ischemic left leg. s/p Left femoral and Lt Iliac thromboembolectomy., arteriogram HTN- antihypretensives, cardiology managing currently Losartan 50 mg po qd , Renal function at baseline Can increase to 100 mg pO QD (home dose) Chronic atrial fibrillation- Cardiology COMMENT/RELEVANT DATA Meds Current Medications Medications (Trade) Dose Ordered Sig/[place] Start Time Stop Time Status Last Admin Dose Admin Acetaminophen (Tylenol Supp) 650 mg PRN Q6HRS PRN 12/17/18 10:00 12/25/18 10:27 DC Acetaminophen (Tylenol) 650 mg PRN Q6HRS PRN 12/25/18 10:30 Acetaminophen/ Hydrocodone Bitart (Lortab 5/325) 1 tab PRN Q4HRS PRN 12/25/18 10:45 Amlodipine Besylate (Norvasc) 5 mg STK-MED ONCE 12/26/18 16:08 12/26/18 16:09 DC Amoxicillin/ Clavulanate Potassium (Augmentin 875/ 125mg) 1 tab BID 12/26/18 09:00 12/29/18 12:00 12/28/18 08:45 1 TAB Atorvastatin Calcium (Lipitor) 20 mg QHS 12/25/18 21:00 12/27/18 21:58 20 MG Bupivacaine HCl (Sensorcaine-Mpf 0.25%) 10 ml 1X ONCE 12/21/18 12:00 12/21/18 12:01 DC 12/21/18 12:00 10 ML Bupivacaine HCl/ Epinephrine Bitart (Sensorcain-Epi 0.5%-1:927039 Mpf) 30 ml 1X ONCE 12/19/18 06:00 12/19/18 06:01 DC 12/19/18 06:00 30 ML Cefazolin Sodium 1 gm/Sodium Chloride 500 ml @ 500 mls/hr 1X ONCE 12/23/18 07:30 12/23/18 08:29 DC 12/23/18 08:33 Ceftriaxone Sodium (Rocephin) 1 gm Q24H 12/18/18 11:00 12/22/18 10:07 DC 12/21/18 12:42 1 GM Clonidine HCl (Catapres) 0.1 mg 1X ONCE 12/16/18 14:15 12/16/18 14:16 DC 12/16/18 15:12 0.1 MG Clopidogrel Bisulfate (Plavix) 75 mg [id number] 12/26/18 08:00 12/28/18 08:45 75 MG Dexamethasone Sodium Phosphate (Decadron) 4 mg STK-MED ONCE 12/23/18 09:06 12/23/18 09:06 DC Dextrose/Sodium Chloride 1,000 ml @ 125 mls/hr Q8H 12/21/18 11:15 12/23/18 11:59 DC 12/23/18 03:30 125 MLS/HR Diclofenac Sodium (Voltaren) 1 marilyn QID 12/21/18 13:00 12/28/18 08:46 1 MARILYN Enoxaparin Sodium (Lovenox 100mg Syringe) 100 mg DAILY 12/17/18 10:30 12/19/18 09:14 DC 12/17/18 12:49 100 MG Famotidine (Pepcid Vial) 20 mg STK-MED ONCE 12/23/18 09:06 12/23/18 09:07 DC Febuxostat (Uloric) 40 mg DAILY 12/26/18 09:00 12/28/18 08:45 40 MG Fentanyl Citrate (Fentanyl 2ml Vial) 100 mcg STK-MED ONCE 12/23/18 08:24 12/23/18 08:24 DC Glycopyrrolate (Robinul) 1 mg STK-MED ONCE 12/23/18 09:10 12/23/18 09:11 DC Heparin Sodium (Porcine) (Heparin Sodium) 10,000 unit STK-MED ONCE 12/23/18 09:23 12/23/18 09:23 DC Heparin Sodium (Porcine) 5000 unit/Sodium Chloride 505 ml @ 505 mls/hr 1X ONCE 12/23/18 07:30 12/23/18 08:29 DC Heparin Sodium/ Dextrose 500 ml @ 24 mls/hr CONT PRN PRN 12/23/18 06:30 12/27/18 16:43 19.4 MLS/HR Hydralazine HCl (Apresoline Inj) 10 mg PRN Q6HRS PRN 12/17/18 01:00 12/27/18 00:02 10 MG Hydrocortisone Sodium Succinate (Solu-CORTEF) 100 mg 1X ONCE 12/23/18 11:00 12/23/18 11:15 DC Hydromorphone HCl (Dilaudid) 0.5 mg PRN Q10MIN PRN 12/23/18 07:30 12/24/18 07:29 DC Info (Anti-Coagulation Monitoring By Pharmacy) 1 each PRN DAILY PRN 12/17/18 10:15 12/27/18 12:46 1 EACH Insulin Human Lispro (HumaLOG) 0-6 UNITS BG 300-399... Q6HRS 12/17/18 12:00 12/17/18 10:24 DC Iohexol (Omnipaque 300 Mg/ml) 50 ml STK-MED ONCE 12/23/18 09:28 12/23/18 09:28 DC 12/23/18 08:33 50 ML Labetalol HCl (Normodyne Iv Push) 5 mg PRN Q10MIN PRN 12/23/18 11:30 12/25/18 10:27 DC 12/23/18 11:24 5 MG Lactobacillus Rhamnosus (Culturelle) 1 cap BID 12/26/18 12:00 12/28/18 08:44 1 CAP Lidocaine HCl (Lidocaine Pf 2% Vial) 5 ml STK-MED ONCE 12/23/18 06:28 12/23/18 06:28 DC Lidocaine HCl (Xylocaine-Mpf 1% 2ml Vial) 2 ml PRN 1X PRN 12/23/18 07:30 12/24/18 07:29 DC Lidocaine HCl 16 ml/Sodium Bicarbonate 4 meq/ Miscellaneous 20 ml @ 20 mls/hr 1X ONCE 12/23/18 07:30 12/23/18 08:29 DC 12/23/18 08:33 Losartan Potassium (Cozaar) 50 mg DAILY 12/27/18 11:00 12/28/18 08:46 50 MG Methylprednisolone Acetate (DEPO-Medrol 40MG VIAL) 40 mg 1X ONCE 12/21/18 12:00 12/21/18 12:01 DC 12/21/18 12:00 40 MG Metoprolol Succinate (Toprol Xl) 25 mg DAILY 12/25/18 11:00 12/28/18 08:45 25 MG Midazolam HCl (Versed) 2 mg STK-MED ONCE 12/20/18 11:17 12/20/18 11:18 DC Morphine Sulfate (Morphine Sulfate) 1 mg PRN Q10MIN PRN 12/23/18 07:30 12/24/18 07:29 DC Neostigmine Methylsulfate (Bloxiverz) 10 mg STK-MED ONCE 12/20/18 11:16 12/20/18 11:17 DC Neostigmine Methylsulfate (Neostigmine Methylsulfate) 5 mg STK-MED ONCE 12/23/18 09:10 12/23/18 09:10 DC Ondansetron HCl (Zofran) 4 mg STK-MED ONCE 12/23/18 09:06 12/23/18 09:06 DC Pantoprazole Sodium (PROTONIX VIAL for IV PUSH) 40 mg DAILYAC 12/17/18 10:30 12/25/18 10:27 DC 12/25/18 06:23 40 MG Pantoprazole Sodium (Protonix) 40 mg DAILYAC 12/26/18 11:00 12/28/18 08:45 40 MG Phenylephrine HCl (Cheko-Synephrine Inj) 10 mg STK-MED ONCE 12/23/18 08:48 12/23/18 08:48 DC Phytonadione 10 mg/Dextrose 51 ml @ 102 mls/hr 1X ONCE 12/19/18 09:15 12/19/18 09:44 DC 12/19/18 10:37 102 MLS/HR Piperacillin Sod/ Tazobactam Sod 3.375 gm/Sodium Chloride 50 ml @ 100 mls/hr Q6HRS 12/22/18 12:00 12/26/18 08:41 DC 12/26/18 05:37 100 MLS/HR Potassium Chloride/Dextrose/ Sod Cl 1,000 ml @ 125 mls/hr Q8H 12/24/18 10:30 12/25/18 10:27 DC 12/25/18 06:44 125 MLS/HR Potassium Chloride (Klor-Con) 20 meq 1X ONCE 12/27/18 10:30 12/27/18 10:31 DC 12/27/18 13:13 20 MEQ Prochlorperazine Edisylate (Compazine) 5 mg PACU PRN PRN 12/23/18 07:30 12/24/18 07:29 DC Propofol 20 ml @ As Directed STK-MED ONCE 12/23/18 06:28 12/23/18 06:28 DC Ringer's Solution 1,000 ml @ 30 mls/hr Q24H 12/23/18 07:21 12/23/18 19:20 DC Rocuronium [place] (Zemuron) 50 mg STK-MED ONCE 12/23/18 06:28 12/23/18 06:28 DC Sevoflurane (Ultane) 90 ml STK-MED ONCE 12/23/18 09:44 12/23/18 09:44 DC Sodium Chloride 1,000 ml @ 60 mls/hr [id number] 12/25/18 10:30 12/27/18 19:41 DC 12/27/18 09:49 60 MLS/HR Succinylcholine Chloride (Anectine) 200 mg STK-MED ONCE 12/23/18 07:45 12/23/18 07:46 DC Warfarin Sodium (Coumadin Per Pharmacy) 1 each PRN DAILY PRN 12/26/18 08:00 12/27/18 12:37 1 EACH Warfarin Sodium (Coumadin) 6 mg 1X WARF ONCE 12/27/18 16:00 12/27/18 16:01 DC 12/27/18 16:35 6 MG Lab Laboratory Tests Test 12/27/18 12:05 12/28/18 06:15 Heparin Anti-Xa Act, Unfractionated 0.55 IU/mL (0.30-0.70) 0.40 IU/mL (0.30-0.70) Prothrombin Time 16.4 SEC (11.7-14.0) Prothromb Time International Ratio 1.4 (0.8-1.1) Sodium Level 143 mmol/L (136-145) Potassium Level 3.8 mmol/L (3.5-5.1) Chloride Level 111 mmol/L (98-107) Carbon Dioxide Level 22 mmol/L (21-32) Anion Gap 10 (6-14) Blood Urea Nitrogen 20 mg/dL (7-20) Creatinine 1.7 mg/dL (0.6-1.0) Estimated GFR (Cockcroft-Gault) 34.9 Glucose Level 91 mg/dL (70-99) Calcium Level 8.4 mg/dL (8.5-10.1) Magnesium Level 0.9 mg/dL (1.8-2.4) Results All relevant outside records, renal labs, imaging studies, telemetry/EKG's were reviewed. RUBEN RUCKER MD Dec 28, 2018 09:49
--- NOTE | 2018-12-28 10:02 | PDOC ---
PROGRESS NOTES Subjective Subjective No new complaints. Objective Objective Vital Signs Date Time Temp Pulse Resp B/P (MAP) Pulse Ox O2 Delivery O2 Flow Rate FiO2 12/28/18 08:46 80 178/81 12/28/18 07:00 98.8 16 98 Room Air 98.8 12/24/18 15:00 4.0 Intake and Output 12/28/18 06:59 Intake Total 640 ml Output Total 800 ml Balance -160 ml Intake Oral 640 ml Output Urine Total 300 ml Urine/Stool Mix 500 ml # Voids 3 # Bowel Movements 3 Physical Exam Physical Exam She is alert,comfortable and walking with roller walker with physical therapy an d she is eager to go home. Assessment Assessment Problems Medical Problems: (1) Epigastric pain Status: Acute (2) Epigastric pain Status: Acute (3) Nausea Status: Acute (4) Nausea Status: Acute (5) Small bowel obstruction Status: Acute Plan Plan of Usp when medically stable with home health follow up. Comment Review of Relevant I have reviewed the following items rubia (where applicable) has been applied. Labs Laboratory Tests Test 12/26/18 10:30 12/26/18 17:30 12/26/18 23:30 12/27/18 06:00 Heparin Anti-Xa Act, Unfractionated 0.83 IU/mL (0.30-0.70) 0.36 IU/mL (0.30-0.70) 0.27 IU/mL (0.30-0.70) 0.45 IU/mL (0.30-0.70) White Blood Count 9.3 x10^3/uL (4.0-11.0) Red Blood Count 3.32 x10^6/uL (3.50-5.40) Hemoglobin 10.2 g/dL (12.0-15.5) Hematocrit 31.2 % (36.0-47.0) Mean Corpuscular Volume 94 fL (79-100) Mean Corpuscular Hemoglobin 31 pg (25-35) Mean Corpuscular Hemoglobin Concent 33 g/dL (31-37) Red Cell Distribution Width 13.8 % (11.5-14.5) Platelet Count 224 x10^3/uL (140-400) Prothrombin Time 16.1 SEC (11.7-14.0) Prothromb Time International Ratio 1.3 (0.8-1.1) Sodium Level 141 mmol/L (136-145) Potassium Level 3.4 mmol/L (3.5-5.1) Chloride Level 108 mmol/L (98-107) Carbon Dioxide Level 21 mmol/L (21-32) Anion Gap 12 (6-14) Blood Urea Nitrogen 21 mg/dL (7-20) Creatinine 1.7 mg/dL (0.6-1.0) Estimated GFR (Cockcroft-Gault) 34.9 Glucose Level 88 mg/dL (70-99) Calcium Level 8.1 mg/dL (8.5-10.1) Test 12/27/18 12:05 12/28/18 06:15 Heparin Anti-Xa Act, Unfractionated 0.55 IU/mL (0.30-0.70) 0.40 IU/mL (0.30-0.70) Prothrombin Time 16.4 SEC (11.7-14.0) Prothromb Time International Ratio 1.4 (0.8-1.1) Sodium Level 143 mmol/L (136-145) Potassium Level 3.8 mmol/L (3.5-5.1) Chloride Level 111 mmol/L (98-107) Carbon Dioxide Level 22 mmol/L (21-32) Anion Gap 10 (6-14) Blood Urea Nitrogen 20 mg/dL (7-20) Creatinine 1.7 mg/dL (0.6-1.0) Estimated GFR (Cockcroft-Gault) 34.9 Glucose Level 91 mg/dL (70-99) Calcium Level 8.4 mg/dL (8.5-10.1) Magnesium Level 0.9 mg/dL (1.8-2.4) Laboratory Tests Test 12/27/18 12:05 12/28/18 06:15 Heparin Anti-Xa Act, Unfractionated 0.55 IU/mL (0.30-0.70) 0.40 IU/mL (0.30-0.70) Prothrombin Time 16.4 SEC (11.7-14.0) Prothromb Time International Ratio 1.4 (0.8-1.1) Sodium Level 143 mmol/L (136-145) Potassium Level 3.8 mmol/L (3.5-5.1) Chloride Level 111 mmol/L (98-107) Carbon Dioxide Level 22 mmol/L (21-32) Anion Gap 10 (6-14) Blood Urea Nitrogen 20 mg/dL (7-20) Creatinine 1.7 mg/dL (0.6-1.0) Estimated GFR (Cockcroft-Gault) 34.9 Glucose Level 91 mg/dL (70-99) Calcium Level 8.4 mg/dL (8.5-10.1) Magnesium Level 0.9 mg/dL (1.8-2.4) Microbiology 12/18/18 Urine Culture - Final, Complete 12/18/18 Urine Culture Result 1 (ALEJANDRINA) - Final, Complete Medications Current Medications Ondansetron HCl (Zofran) 4 mg 1X ONCE IM ; Start 12/16/18 at 09:30; Stop 12/16/18 at 09:31; Status DC Fentanyl Citrate (Fentanyl 2ml Vial) 75 mcg 1X ONCE IVP Last administered on 12/16/18at 09:46; Start 12/16/18 at 09:45; Stop 12/16/18 at 09:46; Status DC Ondansetron HCl (Zofran) 4 mg 1X ONCE IVP Last administered on 12/16/18at 09:51; Start 12/16/18 at 10:00; Stop 12/16/18 at 10:01; Status DC Sodium Chloride 1,000 ml @ 1,000 mls/hr 1X ONCE IV Last administered on 12/16/18at 10:40; Start 12/16/18 at 10:15; Stop 12/16/18 at 11:14; Status DC Clonidine HCl (Catapres) 0.1 mg 1X ONCE PO Last administered on 12/16/18at 15:12; Start 12/16/18 at 14:15; Stop 12/16/18 at 14:16; Status DC Fentanyl Citrate (Fentanyl 2ml Vial) 75 mcg 1X ONCE IVP ; Start 12/16/18 at 15:15; Stop 12/16/18 at 15:16; Status DC Ondansetron HCl (Zofran) 4 mg PRN Q8HRS PRN IV NAUSEA/VOMITING; Start 12/16/18 at 15:15; Stop 12/16/18 at 17:10; Status DC Fentanyl Citrate (Fentanyl 2ml Vial) 50 mcg PRN Q1HR PRN IV PAIN Last administered on 12/17/18at 07:28; Start 12/16/18 at 15:15; Stop 12/17/18 at 15:14; Status DC Sodium Chloride 1,000 ml @ 125 mls/hr Q8H IV ; Start 12/16/18 at 15:10; Stop 12/16/18 at 17:26; Status DC Acetaminophen (Tylenol) 650 mg PRN Q4HRS PRN PO FEVER; Start 12/16/18 at 15:15; Stop 12/17/18 at 15:14; Status DC Potassium Chloride/Dextrose/ Sod Cl 1,000 ml @ 100 mls/hr Q10H IV Last administered on 12/18/18at 01:27; Start 12/16/18 at 17:00; Stop 12/18/18 at 10:34; Status DC Ondansetron HCl (Zofran) 4 mg PRN Q6HRS PRN IVP NAUSEA/VOMITING Last administered on 12/18/18at 21:17; Start 12/16/18 at 17:00 Hydralazine HCl (Apresoline Inj) 10 mg PRN Q6HRS PRN IVP ELEVATED BP, SEE COMMENTS Last administered on 12/27/18at 00:02; Start 12/17/18 at 01:00 Enoxaparin Sodium (Lovenox 100mg Syringe) 100 mg DAILY SQ Last administered on 12/17/18at 12:49; Start 12/17/18 at 10:30; Stop 12/19/18 at 09:14; Status DC Info (Anti-Coagulation Monitoring By Pharmacy) 1 each PRN DAILY PRN MC SEE COMMENTS Last administered on 12/27/18at 12:46; Start 12/17/18 at 10:15 Pantoprazole Sodium (PROTONIX VIAL for IV PUSH) 40 mg DAILYAC IVP Last administered on 12/25/18at 06:23; Start 12/17/18 at 10:30; Stop 12/25/18 at 10:27; Status DC Acetaminophen (Tylenol Supp) 650 mg PRN Q6HRS PRN VT HEADACHE / TEMP; Start 12/17/18 at 10:00; Stop 12/25/18 at 10:27; Status DC Fentanyl Citrate (Fentanyl 2ml Vial) 50 mcg PRN Q4HRS PRN IVP PAIN Last administered on 12/23/18at 22:01; Start 12/17/18 at 10:00; Stop 12/27/18 at 09:54; Status DC Insulin Human Lispro (HumaLOG) 0-6 UNITS BG 300-399... Q6HRS SQ ; Start 12/17/18 at 12:00; Stop 12/17/18 at 10:24; Status DC Ceftriaxone Sodium (Rocephin) 1 gm Q24H IVP Last administered on 12/21/18at 12:42; Start 12/18/18 at 11:00; Stop 12/22/18 at 10:07; Status DC Dextrose/Sodium Chloride 1,000 ml @ 150 mls/hr Q6H40M IV Last administered on 12/20/18at 03:00; Start 12/18/18 at 10:30; Stop 12/20/18 at 09:52; Status DC Bupivacaine HCl/ Epinephrine Bitart (Sensorcain-Epi 0.5%-1:[id number] Mpf) 30 ml 1X ONCE INJ ; Start 12/18/18 at 15:00; Stop 12/18/18 at 15:01; Status Cancel Bupivacaine HCl/ Epinephrine Bitart (Sensorcain-Epi 0.5%-1:449069 Mpf) 30 ml 1X ONCE INJ Last administered on 12/19/18at 06:00; Start 12/19/18 at 06:00; Stop 12/19/18 at 06:01; Status DC Ondansetron HCl (Zofran) 4 mg PRN Q6HRS PRN IV NAUSEA/VOMITING; Start 12/19/18 at 07:00; Stop 12/20/18 at 06:59; Status DC Fentanyl Citrate (Fentanyl 2ml Vial) 25 mcg PRN Q5MIN PRN IV MILD PAIN 1-3; Start 12/19/18 at 07:00; Stop 12/20/18 at 06:59; Status DC Fentanyl Citrate (Fentanyl 2ml Vial) 50 mcg PRN Q5MIN PRN IV MODERATE TO SEVERE PAIN; Start 12/19/18 at 07:00; Stop 12/20/18 at 06:59; Status DC Morphine Sulfate (Morphine Sulfate) 1 mg PRN Q10MIN PRN IV SEVERE PAIN 7-10; Start 12/19/18 at 07:00; Stop 12/20/18 at 06:59; Status DC Ringer's Solution 1,000 ml @ 30 mls/hr Q24H IV ; Start 12/19/18 at 07:00; Stop 12/19/18 at 18:59; Status DC Lidocaine HCl (Xylocaine-Mpf 1% 2ml Vial) 2 ml PRN 1X PRN ID PRIOR TO IV START; Start 12/19/18 at 07:00; Stop 12/20/18 at 06:59; Status DC Hydromorphone HCl (Dilaudid) 0.5 mg PRN Q10MIN PRN IV SEV PAIN, Second choice; Start 12/19/18 at 07:00; Stop 12/20/18 at 06:59; Status DC Prochlorperazine Edisylate (Compazine) 5 mg PACU PRN PRN IV NAUSEA, MRX1; Start 12/19/18 at 07:00; Stop 12/20/18 at 06:59; Status DC Phytonadione 10 mg/Dextrose 51 ml @ 102 mls/hr 1X ONCE IV Last administered on 12/19/18at 10:37; Start 12/19/18 at 09:15; Stop 12/19/18 at 09:44; Status DC Potassium Chloride/Dextrose/ Sod Cl 1,000 ml @ 150 mls/hr Q6H40M IV Last administered on 12/21/18at 03:26; Start 12/20/18 at 11:00; Stop 12/21/18 at 11:06; Status DC Lidocaine HCl (Lidocaine Pf 2% Vial) 5 ml STK-MED ONCE .ROUTE ; Start 12/20/18 at 11:14; Stop 12/20/18 at 11:14; Status DC Neostigmine Methylsulfate (Bloxiverz) 10 mg STK-MED ONCE .ROUTE ; Start 12/20/18 at 11:16; Stop 12/20/18 at 11:17; Status DC Rocuronium Cody (Zemuron) 50 mg STK-MED ONCE .ROUTE ; Start 12/20/18 at 11:17; Stop 12/20/18 at 11:17; Status DC Fentanyl Citrate (Fentanyl 2ml Vial) 100 mcg STK-MED ONCE .ROUTE ; Start 12/20/18 at 11:17; Stop 12/20/18 at 11:18; Status DC Midazolam HCl (Versed) 2 mg STK-MED ONCE .ROUTE ; Start 12/20/18 at 11:17; Stop 12/20/18 at 11:18; Status DC Glycopyrrolate (Robinul) 1 mg STK-MED ONCE .ROUTE ; Start 12/20/18 at 11:17; Stop 12/20/18 at 11:18; Status DC Succinylcholine Chloride (Anectine) 200 mg STK-MED ONCE .ROUTE ; Start 12/20/18 at 11:21; Stop 12/20/18 at 11:21; Status DC Diclofenac Sodium (Voltaren) 1 marilyn QID TP Last administered on 12/28/18at 08:46; Start 12/21/18 at 13:00 Dextrose/Sodium Chloride 1,000 ml @ 125 mls/hr Q8H IV Last administered on 12/23/18at 03:30; Start 12/21/18 at 11:15; Stop 12/23/18 at 11:59; Status DC Methylprednisolone Acetate (DEPO-Medrol 40MG VIAL) 40 mg 1X ONCE IM Last administered on 12/21/18at 12:00; Start 12/21/18 at 12:00; Stop 12/21/18 at 12:01; Status DC Bupivacaine HCl (Sensorcaine-Mpf 0.25%) 10 ml 1X ONCE IJ Last administered on 12/21/18at 12:00; Start 12/21/18 at 12:00; Stop 12/21/18 at 12:01; Status DC Piperacillin Sod/ Tazobactam Sod 3.375 gm/Sodium Chloride 50 ml @ 100 mls/hr Q6HRS IV Last administered on 12/26/18at 05:37; Start 12/22/18 at 12:00; Stop 12/26/18 at 08:41; Status DC Heparin Sodium/ Dextrose 500 ml @ 32 mls/min CONT PRN IV SEE PROTOCOL; Start 12/22/18 at 14:30; Stop 12/22/18 at 20:12; Status DC Heparin Sodium (Porcine) (Heparin Sodium) 3,050 unit PRN Q6HRS PRN IV FOR UFH LEVEL LESS THAN 0.2; Start 12/22/18 at 14:30; Stop 12/22/18 at 20:10; Status DC Heparin Sodium (Porcine) (Heparin Sodium) 1,550 unit PRN Q6HRS PRN IV FOR UFH LEVEL 0.2 - 0.29; Start 12/22/18 at 14:30; Stop 12/22/18 at 20:10; Status DC Heparin Sodium (Porcine) (Heparin Sodium) 5,000 unit Q8HRS SQ Last administered on 12/22/18at 22:11; Start 12/22/18 at 22:00; Stop 12/23/18 at 06:10; Status DC Fentanyl Citrate (Fentanyl 2ml Vial) 25 mcg 1X ONCE IVP Last administered on 12/23/18at 03:21; Start 12/23/18 at 03:30; Stop 12/23/18 at 03:31; Status DC Heparin Sodium (Porcine) (Heparin Sodium) 5,000 unit 1X STAT IV ; Start 12/23/18 at 05:58; Stop 12/23/18 at 05:59; Status UNV Heparin Sodium/ Dextrose 500 ml @ 0 mls/hr CONT PRN IV SEE I/O RECORD; Start 12/23/18 at 06:00; Status UNV Heparin Sodium (Porcine) (Heparin Sodium) 5,000 unit 1X ONCE IV Last administered on 12/23/18at 06:16; Start 12/23/18 at 06:30; Stop 12/23/18 at 06:31; Status DC Heparin Sodium/ Dextrose 500 ml @ 24 mls/hr CONT PRN PRN IV DVT Last administered on 12/27/18at 16:43; Start 12/23/18 at 06:30 Heparin Sodium (Porcine) (Heparin Sodium) 3,050 unit PRN Q6HRS PRN IV FOR UFH LEVEL LESS THAN 0.2 Last administered on 12/27/18at 00:08; Start 12/23/18 at 06:15 Heparin Sodium (Porcine) (Heparin Sodium) 1,550 unit PRN Q6HRS PRN IV FOR UFH LEVEL 0.2 - 0.29; Start 12/23/18 at 06:15 Propofol 20 ml @ As Directed STK-MED ONCE IV ; Start 12/23/18 at 06:28; Stop 12/23/18 at 06:28; Status DC Lidocaine HCl (Lidocaine Pf 2% Vial) 5 ml STK-MED ONCE .ROUTE ; Start 12/23/18 at 06:28; Stop 12/23/18 at 06:28; Status DC Fentanyl Citrate (Fentanyl 2ml Vial) 100 mcg STK-MED ONCE .ROUTE ; Start 12/23/18 at 06:28; Stop 12/23/18 at 06:28; Status DC Rocuronium Cody (Zemuron) 50 mg STK-MED ONCE .ROUTE ; Start 12/23/18 at 06:28; Stop 12/23/18 at 06:28; Status DC Heparin Sodium (Porcine) 5000 unit/Sodium Chloride 505 ml @ 505 mls/hr 1X ONCE IRR ; Start 12/23/18 at 07:30; Stop 12/23/18 at 08:29; Status DC Cefazolin Sodium 1 gm/Sodium Chloride 500 ml @ 500 mls/hr 1X ONCE IRR Last administered on 12/23/18at 08:33; Start 12/23/18 at 07:30; Stop 12/23/18 at 08:29; Status DC Lidocaine HCl 16 ml/Sodium Bicarbonate 4 meq/ Miscellaneous 20 ml @ 20 mls/hr 1X ONCE ID Last administered on 12/23/18at 08:33; Start 12/23/18 at 07:30; Stop 12/23/18 at 08:29; Status DC Ondansetron HCl (Zofran) 4 mg PRN Q6HRS PRN IV NAUSEA/VOMITING; Start 12/23/18 at 07:30; Stop 12/24/18 at 07:29; Status DC Fentanyl Citrate (Fentanyl 2ml Vial) 25 mcg PRN Q5MIN PRN IV MILD PAIN 1-3; Start 12/23/18 at 07:30; Stop 12/24/18 at 07:29; Status DC Fentanyl Citrate (Fentanyl 2ml Vial) 50 mcg PRN Q5MIN PRN IV MODERATE TO SEVERE PAIN; Start 12/23/18 at 07:30; Stop 12/24/18 at 07:29; Status DC Morphine Sulfate (Morphine Sulfate) 1 mg PRN Q10MIN PRN IV SEVERE PAIN 7-10; Start 12/23/18 at 07:30; Stop 12/24/18 at 07:29; Status DC Ringer's Solution 1,000 ml @ 30 mls/hr Q24H IV ; Start 12/23/18 at 07:21; Stop 12/23/18 at 19:20; Status DC Lidocaine HCl (Xylocaine-Mpf 1% 2ml Vial) 2 ml PRN 1X PRN ID PRIOR TO IV START; Start 12/23/18 at 07:30; Stop 12/24/18 at 07:29; Status DC Hydromorphone HCl (Dilaudid) 0.5 mg PRN Q10MIN PRN IV SEV PAIN, Second choice; Start 12/23/18 at 07:30; Stop 12/24/18 at 07:29; Status DC Prochlorperazine Edisylate (Compazine) 5 mg PACU PRN PRN IV NAUSEA, MRX1; Start 12/23/18 at 07:30; Stop 12/24/18 at 07:29; Status DC Succinylcholine Chloride (Anectine) 200 mg STK-MED ONCE .ROUTE ; Start 12/23/18 at 07:45; Stop 12/23/18 at 07:46; Status DC Fentanyl Citrate (Fentanyl 2ml Vial) 100 mcg STK-MED ONCE .ROUTE ; Start 12/23/18 at 08:24; Stop 12/23/18 at 08:24; Status DC Labetalol HCl (Normodyne Iv Push) 10 mg 1X ONCE IVP ; Start 12/23/18 at 08:30; Stop 12/23/18 at 08:31; Status DC Phenylephrine HCl (Cheko-Synephrine Inj) 10 mg STK-MED ONCE .ROUTE ; Start 12/23/18 at 08:48; Stop 12/23/18 at 08:48; Status DC Iohexol (Omnipaque 300 Mg/ml) 50 ml STK-MED ONCE .ROUTE Last administered on 12/23/18at 08:33; Start 12/23/18 at 09:05; Stop 12/23/18 at 09:05; Status DC Hydrocortisone Sodium Succinate (Solu-CORTEF) 100 mg STK-MED ONCE .ROUTE ; Start 12/23/18 at 09:06; Stop 12/23/18 at 09:06; Status DC Dexamethasone Sodium Phosphate (Decadron) 4 mg STK-MED ONCE .ROUTE ; Start 12/23/18 at 09:06; Stop 12/23/18 at 09:06; Status DC Ondansetron HCl (Zofran) 4 mg STK-MED ONCE .ROUTE ; Start 12/23/18 at 09:06; Stop 12/23/18 at 09:06; Status DC Famotidine (Pepcid Vial) 20 mg STK-MED ONCE .ROUTE ; Start 12/23/18 at 09:06; Stop 12/23/18 at 09:07; Status DC Neostigmine Methylsulfate (Neostigmine Methylsulfate) 5 mg STK-MED ONCE .ROUTE ; Start 12/23/18 at 09:10; Stop 12/23/18 at 09:10; Status DC Glycopyrrolate (Robinul) 1 mg STK-MED ONCE .ROUTE ; Start 12/23/18 at 09:10; Stop 12/23/18 at 09:11; Status DC Heparin Sodium (Porcine) (Heparin Sodium) 10,000 unit STK-MED ONCE .ROUTE ; Start 12/23/18 at 09:23; Stop 12/23/18 at 09:23; Status DC Iohexol (Omnipaque 300 Mg/ml) 50 ml STK-MED ONCE .ROUTE Last administered on 12/23/18at 08:33; Start 12/23/18 at 09:28; Stop 12/23/18 at 09:28; Status DC Sevoflurane (Ultane) 90 ml STK-MED ONCE IH ; Start 12/23/18 at 09:44; Stop 12/23/18 at 09:44; Status DC Hydrocortisone Sodium Succinate (Solu-CORTEF) 100 mg 1X ONCE IV ; Start 12/23/18 at 11:00; Stop 12/23/18 at 11:15; Status DC Labetalol HCl (Normodyne Iv Push) 5 mg PRN Q10MIN PRN IVP HYPERTENSION Last administered on 12/23/18at 11:24; Start 12/23/18 at 11:30; Stop 12/25/18 at 10:27; Status DC Potassium Chloride/Dextrose/ Sod Cl 1,000 ml @ 125 mls/hr Q8H IV Last administered on 12/24/18at 08:24; Start 12/23/18 at 12:00; Stop 12/24/18 at 09:51; Status DC Potassium Chloride/Dextrose/ Sod Cl 1,000 ml @ 125 mls/hr Q8H IV Last administered on 12/25/18at 06:44; Start 12/24/18 at 10:30; Stop 12/25/18 at 10:27; Status DC Clopidogrel Bisulfate (Plavix) 75 mg 1X ONCE PO ; Start 12/25/18 at 09:15; Stop 12/25/18 at 09:16; Status DC Amlodipine Besylate (Norvasc) 5 mg DAILY PO Last administered on 12/26/18 10:08; Start 12/25/18 at 12:00; Stop 12/26/18 at 10:26; Status DC Atorvastatin Calcium (Lipitor) 20 mg QHS PO Last administered on 12/27/18 21:58; Start 12/25/18 at 21:00 Metoprolol Succinate (Toprol Xl) 25 mg DAILY PO Last administered on 12/28/18 08:45; Start 12/25/18 at 11:00 Acetaminophen (Tylenol) 650 mg PRN Q6HRS PRN PO MILD PAIN / TEMP; Start 12/25/18 at 10:30 Sodium Chloride 1,000 ml @ 60 mls/hr [id number] IV Last administered on 12/27/18 09:49; Start 12/25/18 at 10:30; Stop 12/27/18 at 19:41; Status DC Acetaminophen/ Hydrocodone Bitart (Lortab 5/325) 1 tab PRN Q4HRS PRN PO PAIN; Start 12/25/18 at 10:45 Febuxostat (Uloric) 40 mg DAILY PO Last administered on 12/28/18 08:45; Start 12/26/18 at 09:00 Clopidogrel Bisulfate (Plavix) 75 mg DAILYWBKFT PO Last administered on 12/28/18 08:45; Start 12/26/18 at 08:00 Warfarin Sodium (Coumadin Per Pharmacy) 1 each PRN DAILY PRN MC SEE COMMENTS Last administered on 12/27/18at 12:37; Start 12/26/18 at 08:00 Warfarin Sodium (Coumadin) 4 mg 1X WARF ONCE PO ; Start 12/25/18 at 16:47; Stop 12/25/18 at 16:48; Status DC Amoxicillin/ Clavulanate Potassium (Augmentin 875/ 125mg) 1 tab BID PO Last administered on 12/28/18 08:45; Start 12/26/18 at 09:00; Stop 12/29/18 at 12:00 Lactobacillus Rhamnosus (Culturelle) 1 cap BID PO Last administered on 12/28/18 08:44; Start 12/26/18 at 12:00 Amlodipine Besylate (Norvasc) 10 mg DAILY PO Last administered on 12/28/18at 08:45; Start 12/27/18 at 09:00 Warfarin Sodium (Coumadin) 5 mg DAILY16 PO Last administered on 12/26/18at 16:49; Start 12/26/18 at 16:00; Stop 12/27/18 at 12:28; Status DC Amlodipine Besylate (Norvasc) 5 mg 1X ONCE PO ; Start 12/26/18 at 10:30; Stop 12/26/18 at 16:06; Status DC Pantoprazole Sodium (Protonix) 40 mg DAILYAC PO Last administered on 12/28/18at 08:45; Start 12/26/18 at 11:00 Amlodipine Besylate (Norvasc) 5 mg 1X ONCE PO Last administered on 12/26/18at 16:48; Start 12/26/18 at 16:15; Stop 12/26/18 at 16:16; Status DC Amlodipine Besylate (Norvasc) 5 mg STK-MED ONCE .ROUTE ; Start 12/26/18 at 16:08; Stop 12/26/18 at 16:09; Status DC Potassium Chloride (Klor-Con) 20 meq 1X ONCE PO Last administered on 12/27/18at 13:13; Start 12/27/18 at 10:30; Stop 12/27/18 at 10:31; Status DC Losartan Potassium (Cozaar) 50 mg DAILY PO Last administered on 12/28/18at 08:46; Start 12/27/18 at 11:00 Warfarin Sodium (Coumadin) 6 mg 1X WARF ONCE PO Last administered on 12/27/18at 16:35; Start 12/27/18 at 16:00; Stop 12/27/18 at 16:01; Status DC Active Scripts Active Reported Losartan Potassium 100 Mg Tablet 100 Mg PO DAILY Multi-Vitamin Daily (Multivitamin) 1 Each Tablet 1 Tab PO DAILY 30 Days Coumadin (Warfarin Sodium) 4 Mg Tablet 3.5 Mg PO DAILY Atorvastatin Calcium 20 Mg Tablet 1 Tab PO DAILY Toprol Xl (Metoprolol Succinate) 50 Mg Tab.er.24h 25 Mg PO DAILY Amlodipine Besylate 10 Mg Tablet 10 Mg PO DAILY Uloric (Febuxostat) 40 Mg Tablet 1 Tab PO DAILY Detrol La (Tolterodine Tartrate) 4 Mg Cap.er.24h 1 Cap PO DAILY Vitals/I & O Vital Sign - Last 24 Hours 12/27/18 12/27/18 12/27/18 12/27/18 11:00 13:13 15:00 19:59 Temp 98.0 97.5 98.4 98.0 97.5 98.4 Pulse 80 80 74 97 Resp 18 18 16 B/P (MAP) 157/75 (102) 157/75 172/77 (108) 160/81 (107) Pulse Ox 99 99 98 O2 Delivery Room Air Room Air Room Air 12/27/18 12/27/18 12/28/18 12/28/18 20:01 22:17 02:00 07:00 Temp 98.3 98.5 98.8 98.3 98.5 98.8 Pulse 87 78 80 Resp 16 16 16 B/P (MAP) 156/86 (109) 150/76 (100) 178/81 (113) Pulse Ox 98 98 98 O2 Delivery Room Air Room Air Room Air Room Air 12/28/18 12/28/18 12/28/18 08:45 08:45 08:46 Pulse 80 80 80 B/P (MAP) 178/81 178/81 178/81 l Intake and Output 12/27/18 12/27/18 12/28/18 14:59 22:59 06:59 Intake Total 320 ml 120 ml 200 ml Output Total 350 ml 300 ml 150 ml Balance -30 ml -180 ml 50 ml ERIKA NELSON MD Dec 28, 2018 10:02
[2018-12-28] MEDS: hydrALAZINE 20 MG/ML VIAL. IVP PRN (11:08)
[2018-12-28 11:12] VITALS: BP 174/74
--- NOTE | 2018-12-28 11:51 | PDOC ---
PROGRESS NOTES Subjective Subjective feels better. eats solid food. has bowel movements. lab reviewed. inr 1.4. Objective Objective Vital Signs Date Time Temp Pulse Resp B/P (MAP) Pulse Ox O2 Delivery O2 Flow Rate FiO2 12/28/18 11:12 98.1 67 18 174/74 (107) 97 Room Air 98.1 12/24/18 15:00 4.0 Intake and Output 12/28/18 07:00 Intake Total 640 ml Output Total 800 ml Balance -160 ml Intake Oral 640 ml Output Urine Total 300 ml Urine/Stool Mix 500 ml # Voids 3 # Bowel Movements 3 Physical Exam Abdomen: Soft Heart: Normal S1, Normal S2 Extremities: Other (1 plus edema legs. dorsalis pulse 2 plus left foot) General: Alert, Cooperative HEENT: Atraumatic Lungs: Clear to auscultation Neuro: Normal speech Psych/Mental Status: Mental status NL Skin: No rashes Assessment Assessment Problemspartial small-bowel obstruction resolved 2. Acute kidney injury better top of chronic kidney disease stage 3. baseline creatinine 1.4. 3. Hypertension.bp high 4. Hyperlipidemia. 5. Chronic atrial fibrillation with a slightly increased VR. osteoarthritis left knee treated with steroid injection 6. Chronic gout. 7. History of a left nephrectomy. left popliteal and left iliac thromboembolectomy with left iliac artery ang ioplasty and stent mild leukocytosis resolved Medical Problems: (1) Epigastric pain Status: Acute (2) Epigastric pain Status: Acute (3) Nausea Status: Acute (4) Nausea Status: Acute (5) Small bowel obstruction Status: Acute Plan Plan of Care continue coumadin. target int 2 to 3 continue iv heparin PT and OT off of iv fluids continue bp meds. last bp was okay when I was in her room visiting her d/c augmentin soon Comment Review of Relevant I have reviewed the following items rubia (where applicable) has been applied. Labs Laboratory Tests Test 12/26/18 17:30 12/26/18 23:30 12/27/18 06:00 12/27/18 12:05 Heparin Anti-Xa Act, Unfractionated 0.36 IU/mL (0.30-0.70) 0.27 IU/mL (0.30-0.70) 0.45 IU/mL (0.30-0.70) 0.55 IU/mL (0.30-0.70) White Blood Count 9.3 x10^3/uL (4.0-11.0) Red Blood Count 3.32 x10^6/uL (3.50-5.40) Hemoglobin 10.2 g/dL (12.0-15.5) Hematocrit 31.2 % (36.0-47.0) Mean Corpuscular Volume 94 fL (79-100) Mean Corpuscular Hemoglobin 31 pg (25-35) Mean Corpuscular Hemoglobin Concent 33 g/dL (31-37) Red Cell Distribution Width 13.8 % (11.5-14.5) Platelet Count 224 x10^3/uL (140-400) Prothrombin Time 16.1 SEC (11.7-14.0) Prothromb Time International Ratio 1.3 (0.8-1.1) Sodium Level 141 mmol/L (136-145) Potassium Level 3.4 mmol/L (3.5-5.1) Chloride Level 108 mmol/L (98-107) Carbon Dioxide Level 21 mmol/L (21-32) Anion Gap 12 (6-14) Blood Urea Nitrogen 21 mg/dL (7-20) Creatinine 1.7 mg/dL (0.6-1.0) Estimated GFR (Cockcroft-Gault) 34.9 Glucose Level 88 mg/dL (70-99) Calcium Level 8.1 mg/dL (8.5-10.1) Test 12/28/18 06:15 Prothrombin Time 16.4 SEC (11.7-14.0) Prothromb Time International Ratio 1.4 (0.8-1.1) Heparin Anti-Xa Act, Unfractionated 0.40 IU/mL (0.30-0.70) Sodium Level 143 mmol/L (136-145) Potassium Level 3.8 mmol/L (3.5-5.1) Chloride Level 111 mmol/L (98-107) Carbon Dioxide Level 22 mmol/L (21-32) Anion Gap 10 (6-14) Blood Urea Nitrogen 20 mg/dL (7-20) Creatinine 1.7 mg/dL (0.6-1.0) Estimated GFR (Cockcroft-Gault) 34.9 Glucose Level 91 mg/dL (70-99) Calcium Level 8.4 mg/dL (8.5-10.1) Magnesium Level 0.9 mg/dL (1.8-2.4) Laboratory Tests Test 12/27/18 12:05 12/28/18 06:15 Heparin Anti-Xa Act, Unfractionated 0.55 IU/mL (0.30-0.70) 0.40 IU/mL (0.30-0.70) Prothrombin Time 16.4 SEC (11.7-14.0) Prothromb Time International Ratio 1.4 (0.8-1.1) Sodium Level 143 mmol/L (136-145) Potassium Level 3.8 mmol/L (3.5-5.1) Chloride Level 111 mmol/L (98-107) Carbon Dioxide Level 22 mmol/L (21-32) Anion Gap 10 (6-14) Blood Urea Nitrogen 20 mg/dL (7-20) Creatinine 1.7 mg/dL (0.6-1.0) Estimated GFR (Cockcroft-Gault) 34.9 Glucose Level 91 mg/dL (70-99) Calcium Level 8.4 mg/dL (8.5-10.1) Magnesium Level 0.9 mg/dL (1.8-2.4) Microbiology 12/18/18 Urine Culture - Final, Complete 12/18/18 Urine Culture Result 1 (ALEJANDRINA) - Final, Complete Medications Current Medications Ondansetron HCl (Zofran) 4 mg 1X ONCE IM ; Start 12/16/18 at 09:30; Stop 12/16/18 at 09:31; Status DC Fentanyl Citrate (Fentanyl 2ml Vial) 75 mcg 1X ONCE IVP Last administered on 12/16/18at 09:46; Start 12/16/18 at 09:45; Stop 12/16/18 at 09:46; Status DC Ondansetron HCl (Zofran) 4 mg 1X ONCE IVP Last administered on 12/16/18at 09:51; Start 12/16/18 at 10:00; Stop 12/16/18 at 10:01; Status DC Sodium Chloride 1,000 ml @ 1,000 mls/hr 1X ONCE IV Last administered on 12/16/18at 10:40; Start 12/16/18 at 10:15; Stop 12/16/18 at 11:14; Status DC Clonidine HCl (Catapres) 0.1 mg 1X ONCE PO Last administered on 12/16/18at 15:12; Start 12/16/18 at 14:15; Stop 12/16/18 at 14:16; Status DC Fentanyl Citrate (Fentanyl 2ml Vial) 75 mcg 1X ONCE IVP ; Start 12/16/18 at 15:15; Stop 12/16/18 at 15:16; Status DC Ondansetron HCl (Zofran) 4 mg PRN Q8HRS PRN IV NAUSEA/VOMITING; Start 12/16/18 at 15:15; Stop 12/16/18 at 17:10; Status DC Fentanyl Citrate (Fentanyl 2ml Vial) 50 mcg PRN Q1HR PRN IV PAIN Last admini stered on 12/17/18at 07:28; Start 12/16/18 at 15:15; Stop 12/17/18 at 15:14; Status DC Sodium Chloride 1,000 ml @ 125 mls/hr Q8H IV ; Start 12/16/18 at 15:10; Stop 12/16/18 at 17:26; Status DC Acetaminophen (Tylenol) 650 mg PRN Q4HRS PRN PO FEVER; Start 12/16/18 at 15:15; Stop 12/17/18 at 15:14; Status DC Potassium Chloride/Dextrose/ Sod Cl 1,000 ml @ 100 mls/hr Q10H IV Last administered on 12/18/18at 01:27; Start 12/16/18 at 17:00; Stop 12/18/18 at 10:34; Status DC Ondansetron HCl (Zofran) 4 mg PRN Q6HRS PRN IVP NAUSEA/VOMITING Last administered on 12/18/18at 21:17; Start 12/16/18 at 17:00 Hydralazine HCl (Apresoline Inj) 10 mg PRN Q6HRS PRN IVP ELEVATED BP, SEE COMMENTS Last administered on 12/28/18at 11:08; Start 12/17/18 at 01:00 Enoxaparin Sodium (Lovenox 100mg Syringe) 100 mg DAILY SQ Last administered on 12/17/18at 12:49; Start 12/17/18 at 10:30; Stop 12/19/18 at 09:14; Status DC Info (Anti-Coagulation Monitoring By Pharmacy) 1 each PRN DAILY PRN MC SEE COMMENTS Last administered on 12/27/18at 12:46; Start 12/17/18 at 10:15 Pantoprazole Sodium (PROTONIX VIAL for IV PUSH) 40 mg DAILYAC IVP Last adminis tered on 12/25/18at 06:23; Start 12/17/18 at 10:30; Stop 12/25/18 at 10:27; Status DC Acetaminophen (Tylenol Supp) 650 mg PRN Q6HRS PRN AL HEADACHE / TEMP; Start 12/17/18 at 10:00; Stop 12/25/18 at 10:27; Status DC Fentanyl Citrate (Fentanyl 2ml Vial) 50 mcg PRN Q4HRS PRN IVP PAIN Last administered on 12/23/18at 22:01; Start 12/17/18 at 10:00; Stop 12/27/18 at 09:54; Status DC Insulin Human Lispro (HumaLOG) 0-6 UNITS BG 300-399... Q6HRS SQ ; Start 12/17/18 at 12:00; Stop 12/17/18 at 10:24; Status DC Ceftriaxone Sodium (Rocephin) 1 gm Q24H IVP Last administered on 12/21/18at 12:42; Start 12/18/18 at 11:00; Stop 12/22/18 at 10:07; Status DC Dextrose/Sodium Chloride 1,000 ml @ 150 mls/hr Q6H40M IV Last administered on 12/20/18at 03:00; Start 12/18/18 at 10:30; Stop 12/20/18 at 09:52; Status DC Bupivacaine HCl/ Epinephrine Bitart (Sensorcain-Epi 0.5%-1:629227 Mpf) 30 ml 1X ONCE INJ ; Start 12/18/18 at 15:00; Stop 12/18/18 at 15:01; Status Cancel Bupivacaine HCl/ Epinephrine Bitart (Sensorcain-Epi 0.5%-1:330360 Mpf) 30 ml 1X ONCE INJ Last administered on 12/19/18at 06:00; Start 12/19/18 at 06:00; Stop 12/19/18 at 06:01; Status DC Ondansetron HCl (Zofran) 4 mg PRN Q6HRS PRN IV NAUSEA/VOMITING; Start 12/19/18 at 07:00; Stop 12/20/18 at 06:59; Status DC Fentanyl Citrate (Fentanyl 2ml Vial) 25 mcg PRN Q5MIN PRN IV MILD PAIN 1-3; Start 12/19/18 at 07:00; Stop 12/20/18 at 06:59; Status DC Fentanyl Citrate (Fentanyl 2ml Vial) 50 mcg PRN Q5MIN PRN IV MODERATE TO SEVERE PAIN; Start 12/19/18 at 07:00; Stop 12/20/18 at 06:59; Status DC Morphine Sulfate (Morphine Sulfate) 1 mg PRN Q10MIN PRN IV SEVERE PAIN 7-10; Start 12/19/18 at 07:00; Stop 12/20/18 at 06:59; Status DC Ringer's Solution 1,000 ml @ 30 mls/hr Q24H IV ; Start 12/19/18 at 07:00; Stop 12/19/18 at 18:59; Status DC Lidocaine HCl (Xylocaine-Mpf 1% 2ml Vial) 2 ml PRN 1X PRN ID PRIOR TO IV START; Start 12/19/18 at 07:00; Stop 12/20/18 at 06:59; Status DC Hydromorphone HCl (Dilaudid) 0.5 mg PRN Q10MIN PRN IV SEV PAIN, Second choice; Start 12/19/18 at 07:00; Stop 12/20/18 at 06:59; Status DC Prochlorperazine Edisylate (Compazine) 5 mg PACU PRN PRN IV NAUSEA, MRX1; Start 12/19/18 at 07:00; Stop 12/20/18 at 06:59; Status DC Phytonadione 10 mg/Dextrose 51 ml @ 102 mls/hr 1X ONCE IV Last administered on 12/19/18at 10:37; Start 12/19/18 at 09:15; Stop 12/19/18 at 09:44; Status DC Potassium Chloride/Dextrose/ Sod Cl 1,000 ml @ 150 mls/hr Q6H40M IV Last administered on 12/21/18at 03:26; Start 12/20/18 at 11:00; Stop 12/21/18 at 11:06; Status DC Lidocaine HCl (Lidocaine Pf 2% Vial) 5 ml STK-MED ONCE .ROUTE ; Start 12/20/18 at 11:14; Stop 12/20/18 at 11:14; Status DC Neostigmine Methylsulfate (Bloxiverz) 10 mg STK-MED ONCE .ROUTE ; Start 12/20/18 at 11:16; Stop 12/20/18 at 11:17; Status DC Rocuronium [place] (Zemuron) 50 mg STK-MED ONCE .ROUTE ; Start 12/20/18 at 11:17; Stop 12/20/18 at 11:17; Status DC Fentanyl Citrate (Fentanyl 2ml Vial) 100 mcg STK-MED ONCE .ROUTE ; Start 12/20/18 at 11:17; Stop 12/20/18 at 11:18; Status DC Midazolam HCl (Versed) 2 mg STK-MED ONCE .ROUTE ; Start 12/20/18 at 11:17; Stop 12/20/18 at 11:18; Status DC Glycopyrrolate (Robinul) 1 mg STK-MED ONCE .ROUTE ; Start 12/20/18 at 11:17; Stop 12/20/18 at 11:18; Status DC Succinylcholine Chloride (Anectine) 200 mg STK-MED ONCE .ROUTE ; Start 12/20/18 at 11:21; Stop 12/20/18 at 11:21; Status DC Diclofenac Sodium (Voltaren) 1 marilyn QID TP Last administered on 12/28/18at 08:46; Start 12/21/18 at 13:00 Dextrose/Sodium Chloride 1,000 ml @ 125 mls/hr Q8H IV Last administered on 12/23/18at 03:30; Start 12/21/18 at 11:15; Stop 12/23/18 at 11:59; Status DC Methylprednisolone Acetate (DEPO-Medrol 40MG VIAL) 40 mg 1X ONCE IM Last administered on 12/21/18at 12:00; Start 12/21/18 at 12:00; Stop 12/21/18 at 12:01; Status DC Bupivacaine HCl (Sensorcaine-Mpf 0.25%) 10 ml 1X ONCE IJ Last administered on 12/21/18at 12:00; Start 12/21/18 at 12:00; Stop 12/21/18 at 12:01; Status DC Piperacillin Sod/ Tazobactam Sod 3.375 gm/Sodium Chloride 50 ml @ 100 mls/hr Q6HRS IV Last administered on 12/26/18at 05:37; Start 12/22/18 at 12:00; Stop 12/26/18 at 08:41; Status DC Heparin Sodium/ Dextrose 500 ml @ 32 mls/min CONT PRN IV SEE PROTOCOL; Start 12/22/18 at 14:30; Stop 12/22/18 at 20:12; Status DC Heparin Sodium (Porcine) (Heparin Sodium) 3,050 unit PRN Q6HRS PRN IV FOR UFH LEVEL LESS THAN 0.2; Start 12/22/18 at 14:30; Stop 12/22/18 at 20:10; Status DC Heparin Sodium (Porcine) (Heparin Sodium) 1,550 unit PRN Q6HRS PRN IV FOR UFH LEVEL 0.2 - 0.29; Start 12/22/18 at 14:30; Stop 12/22/18 at 20:10; Status DC Heparin Sodium (Porcine) (Heparin Sodium) 5,000 unit Q8HRS SQ Last administered on 12/22/18at 22:11; Start 12/22/18 at 22:00; Stop 12/23/18 at 06:10; Status DC Fentanyl Citrate (Fentanyl 2ml Vial) 25 mcg 1X ONCE IVP Last administered on 12/23/18at 03:21; Start 12/23/18 at 03:30; Stop 12/23/18 at 03:31; Status DC Heparin Sodium (Porcine) (Heparin Sodium) 5,000 unit 1X STAT IV ; Start 12/23/18 at 05:58; Stop 12/23/18 at 05:59; Status UNV Heparin Sodium/ Dextrose 500 ml @ 0 mls/hr CONT PRN IV SEE I/O RECORD; Start 12/23/18 at 06:00; Status UNV Heparin Sodium (Porcine) (Heparin Sodium) 5,000 unit 1X ONCE IV Last administered on 12/23/18at 06:16; Start 12/23/18 at 06:30; Stop 12/23/18 at 06:31; Status DC Heparin Sodium/ Dextrose 500 ml @ 24 mls/hr CONT PRN PRN IV DVT Last administered on 12/27/18at 16:43; Start 12/23/18 at 06:30 Heparin Sodium (Porcine) (Heparin Sodium) 3,050 unit PRN Q6HRS PRN IV FOR UFH L EVEL LESS THAN 0.2 Last administered on 12/27/18at 00:08; Start 12/23/18 at 06:15 Heparin Sodium (Porcine) (Heparin Sodium) 1,550 unit PRN Q6HRS PRN IV FOR UFH LEVEL 0.2 - 0.29; Start 12/23/18 at 06:15 Propofol 20 ml @ As Directed STK-MED ONCE IV ; Start 12/23/18 at 06:28; Stop 12/23/18 at 06:28; Status DC Lidocaine HCl (Lidocaine Pf 2% Vial) 5 ml STK-MED ONCE .ROUTE ; Start 12/23/18 at 06:28; Stop 12/23/18 at 06:28; Status DC Fentanyl Citrate (Fentanyl 2ml Vial) 100 mcg STK-MED ONCE .ROUTE ; Start 12/23/18 at 06:28; Stop 12/23/18 at 06:28; Status DC Rocuronium [place] (Zemuron) 50 mg STK-MED ONCE .ROUTE ; Start 12/23/18 at 06:28; Stop 12/23/18 at 06:28; Status DC Heparin Sodium (Porcine) 5000 unit/Sodium Chloride 505 ml @ 505 mls/hr 1X ONCE IRR ; Start 12/23/18 at 07:30; Stop 12/23/18 at 08:29; Status DC Cefazolin Sodium 1 gm/Sodium Chloride 500 ml @ 500 mls/hr 1X ONCE IRR Last administered on 12/23/18at 08:33; Start 12/23/18 at 07:30; Stop 12/23/18 at 08:29; Status DC Lidocaine HCl 16 ml/Sodium Bicarbonate 4 meq/ Miscellaneous 20 ml @ 20 mls/hr 1X ONCE ID Last administered on 12/23/18at 08:33; Start 12/23/18 at 07:30; Stop 12/23/18 at 08:29; Status DC Ondansetron HCl (Zofran) 4 mg PRN Q6HRS PRN IV NAUSEA/VOMITING; Start 12/23/18 at 07:30; Stop 12/24/18 at 07:29; Status DC Fentanyl Citrate (Fentanyl 2ml Vial) 25 mcg PRN Q5MIN PRN IV MILD PAIN 1-3; Start 12/23/18 at 07:30; Stop 12/24/18 at 07:29; Status DC Fentanyl Citrate (Fentanyl 2ml Vial) 50 mcg PRN Q5MIN PRN IV MODERATE TO SEVERE PAIN; Start 12/23/18 at 07:30; Stop 12/24/18 at 07:29; Status DC Morphine Sulfate (Morphine Sulfate) 1 mg PRN Q10MIN PRN IV SEVERE PAIN 7-10; Start 12/23/18 at 07:30; Stop 12/24/18 at 07:29; Status DC Ringer's Solution 1,000 ml @ 30 mls/hr Q24H IV ; Start 12/23/18 at 07:21; Stop 12/23/18 at 19:20; Status DC Lidocaine HCl (Xylocaine-Mpf 1% 2ml Vial) 2 ml PRN 1X PRN ID PRIOR TO IV START; Start 12/23/18 at 07:30; Stop 12/24/18 at 07:29; Status DC Hydromorphone HCl (Dilaudid) 0.5 mg PRN Q10MIN PRN IV SEV PAIN, Second choice; Start 12/23/18 at 07:30; Stop 12/24/18 at 07:29; Status DC Prochlorperazine Edisylate (Compazine) 5 mg PACU PRN PRN IV NAUSEA, MRX1; Start 12/23/18 at 07:30; Stop 12/24/18 at 07:29; Status DC Succinylcholine Chloride (Anectine) 200 mg STK-MED ONCE .ROUTE ; Start 12/23/18 at 07:45; Stop 12/23/18 at 07:46; Status DC Fentanyl Citrate (Fentanyl 2ml Vial) 100 mcg STK-MED ONCE .ROUTE ; Start 12/23/18 at 08:24; Stop 12/23/18 at 08:24; Status DC Labetalol HCl (Normodyne Iv Push) 10 mg 1X ONCE IVP ; Start 12/23/18 at 08:30; Stop 12/23/18 at 08:31; Status DC Phenylephrine HCl (Cheko-Synephrine Inj) 10 mg STK-MED ONCE .ROUTE ; Start 12/23/18 at 08:48; Stop 12/23/18 at 08:48; Status DC Iohexol (Omnipaque 300 Mg/ml) 50 ml STK-MED ONCE .ROUTE Last administered on 12/23/18at 08:33; Start 12/23/18 at 09:05; Stop 12/23/18 at 09:05; Status DC Hydrocortisone Sodium Succinate (Solu-CORTEF) 100 mg STK-MED ONCE .ROUTE ; Start 12/23/18 at 09:06; Stop 12/23/18 at 09:06; Status DC Dexamethasone Sodium Phosphate (Decadron) 4 mg STK-MED ONCE .ROUTE ; Start 12/23/18 at 09:06; Stop 12/23/18 at 09:06; Status DC Ondansetron HCl (Zofran) 4 mg STK-MED ONCE .ROUTE ; Start 12/23/18 at 09:06; Stop 12/23/18 at 09:06; Status DC Famotidine (Pepcid Vial) 20 mg STK-MED ONCE .ROUTE ; Start 12/23/18 at 09:06; Stop 12/23/18 at 09:07; Status DC Neostigmine Methylsulfate (Neostigmine Methylsulfate) 5 mg STK-MED ONCE .ROUTE ; Start 12/23/18 at 09:10; Stop 12/23/18 at 09:10; Status DC Glycopyrrolate (Robinul) 1 mg STK-MED ONCE .ROUTE ; Start 12/23/18 at 09:10; Stop 12/23/18 at 09:11; Status DC Heparin Sodium (Porcine) (Heparin Sodium) 10,000 unit STK-MED ONCE .ROUTE ; Start 12/23/18 at 09:23; Stop 12/23/18 at 09:23; Status DC Iohexol (Omnipaque 300 Mg/ml) 50 ml STK-MED ONCE .ROUTE Last administered on 12/23/18at 08:33; Start 12/23/18 at 09:28; Stop 12/23/18 at 09:28; Status DC Sevoflurane (Ultane) 90 ml STK-MED ONCE IH ; Start 12/23/18 at 09:44; Stop 12/23/18 at 09:44; Status DC Hydrocortisone Sodium Succinate (Solu-CORTEF) 100 mg 1X ONCE IV ; Start 12/23/18 at 11:00; Stop 12/23/18 at 11:15; Status DC Labetalol HCl (Normodyne Iv Push) 5 mg PRN Q10MIN PRN IVP HYPERTENSION Last administered on 12/23/18at 11:24; Start 12/23/18 at 11:30; Stop 12/25/18 at 10:27; Status DC Potassium Chloride/Dextrose/ Sod Cl 1,000 ml @ 125 mls/hr Q8H IV Last administered on 12/24/18at 08:24; Start 12/23/18 at 12:00; Stop 12/24/18 at 09:51; Status DC Potassium Chloride/Dextrose/ Sod Cl 1,000 ml @ 125 mls/hr Q8H IV Last administered on 12/25/18at 06:44; Start 12/24/18 at 10:30; Stop 12/25/18 at 10:27; Status DC Clopidogrel Bisulfate (Plavix) 75 mg 1X ONCE PO ; Start 12/25/18 at 09:15; Stop 12/25/18 at 09:16; Status DC Amlodipine Besylate (Norvasc) 5 mg DAILY PO Last administered on 12/26/18at 10:08; Start 12/25/18 at 12:00; Stop 12/26/18 at 10:26; Status DC Atorvastatin Calcium (Lipitor) 20 mg QHS PO Last administered on 12/27/18at 21:58; Start 12/25/18 at 21:00 Metoprolol Succinate (Toprol Xl) 25 mg DAILY PO Last administered on 12/28/18 08:45; Start 12/25/18 at 11:00 Acetaminophen (Tylenol) 650 mg PRN Q6HRS PRN PO MILD PAIN / TEMP; Start 12/25/18 at 10:30 Sodium Chloride 1,000 ml @ 60 mls/hr [id number] IV Last administered on 12/27/18at 09:49; Start 12/25/18 at 10:30; Stop 12/27/18 at 19:41; Status DC Acetaminophen/ Hydrocodone Bitart (Lortab 5/325) 1 tab PRN Q4HRS PRN PO PAIN; Start 12/25/18 at 10:45 Febuxostat (Uloric) 40 mg DAILY PO Last administered on 12/28/18at 08:45; Start 12/26/18 at 09:00 Clopidogrel Bisulfate (Plavix) 75 mg DAILYWBKFT PO Last administered on 12/28/18at 08:45; Start 12/26/18 at 08:00 Warfarin Sodium (Coumadin Per Pharmacy) 1 each PRN DAILY PRN MC SEE COMMENTS Last administered on 12/28/18at 11:12; Start 12/26/18 at 08:00 Warfarin Sodium (Coumadin) 4 mg 1X WARF ONCE PO ; Start 12/25/18 at 16:47; Stop 12/25/18 at 16:48; Status DC Amoxicillin/ Clavulanate Potassium (Augmentin 875/ 125mg) 1 tab BID PO Last administered on 12/28/18at 08:45; Start 12/26/18 at 09:00; Stop 12/29/18 at 12:00 Lactobacillus Rhamnosus (Culturelle) 1 cap BID PO Last administered on 12/28/18at 08:44; Start 12/26/18 at 12:00 Amlodipine Besylate (Norvasc) 10 mg DAILY PO Last administered on 12/28/18at 0 8:45; Start 12/27/18 at 09:00 Warfarin Sodium (Coumadin) 5 mg DAILY16 PO Last administered on 12/26/18at 16:49; Start 12/26/18 at 16:00; Stop 12/27/18 at 12:28; Status DC Amlodipine Besylate (Norvasc) 5 mg 1X ONCE PO ; Start 12/26/18 at 10:30; Stop 12/26/18 at 16:06; Status DC Pantoprazole Sodium (Protonix) 40 mg DAILYAC PO Last administered on 12/28/18at 08:45; Start 12/26/18 at 11:00 Amlodipine Besylate (Norvasc) 5 mg 1X ONCE PO Last administered on 12/26/18at 16:48; Start 12/26/18 at 16:15; Stop 12/26/18 at 16:16; Status DC Amlodipine Besylate (Norvasc) 5 mg STK-MED ONCE .ROUTE ; Start 12/26/18 at 16:08; Stop 12/26/18 at 16:09; Status DC Potassium Chloride (Klor-Con) 20 meq 1X ONCE PO Last administered on 12/27/18at 13:13; Start 12/27/18 at 10:30; Stop 12/27/18 at 10:31; Status DC Losartan Potassium (Cozaar) 50 mg DAILY PO Last administered on 12/28/18at 0 8:46; Start 12/27/18 at 11:00 Warfarin Sodium (Coumadin) 6 mg 1X WARF ONCE PO Last administered on 12/27/18at 16:35; Start 12/27/18 at 16:00; Stop 12/27/18 at 16:01; Status DC Warfarin Sodium (Coumadin) 7.5 mg 1X WARF ONCE PO ; Start 12/28/18 at 16:00; Stop 12/28/18 at 16:01 Active Scripts Active Reported Losartan Potassium 100 Mg Tablet 100 Mg PO DAILY Multi-Vitamin Daily (Multivitamin) 1 Each Tablet 1 Tab PO DAILY 30 Days Coumadin (Warfarin Sodium) 4 Mg Tablet 3.5 Mg PO DAILY Atorvastatin Calcium 20 Mg Tablet 1 Tab PO DAILY Toprol Xl (Metoprolol Succinate) 50 Mg Tab.er.24h 25 Mg PO DAILY Amlodipine Besylate 10 Mg Tablet 10 Mg PO DAILY Uloric (Febuxostat) 40 Mg Tablet 1 Tab PO DAILY Detrol La (Tolterodine Tartrate) 4 Mg Cap.er.24h 1 Cap PO DAILY Vitals/I & O Vital Sign - Last 24 Hours 12/27/18 12/27/18 12/27/18 12/27/18 13:13 15:00 19:59 20:01 Temp 97.5 98.4 97.5 98.4 Pulse 80 74 97 Resp 18 16 B/P (MAP) 157/75 172/77 (108) 160/81 (107) Pulse Ox 99 98 O2 Delivery Room Air Room Air Room Air 12/27/18 12/28/18 12/28/18 12/28/18 22:17 02:00 07:00 08:00 Temp 98.3 98.5 98.8 98.3 98.5 98.8 Pulse 87 78 80 Resp 16 16 16 B/P (MAP) 156/86 (109) 150/76 (100) 178/81 (113) Pulse Ox 98 98 98 O2 Delivery Room Air Room Air Room Air Room Air 12/28/18 12/28/18 12/28/18 12/28/18 08:45 08:45 08:46 11:08 Pulse 80 80 80 73 B/P (MAP) 178/81 178/81 178/81 174/74 12/28/18 11:12 Temp 98.1 98.1 Pulse 67 Resp 18 B/P (MAP) 174/74 (107) Pulse Ox 97 O2 Delivery Room Air Intake and Output 12/27/18 12/27/18 12/28/18 15:00 23:00 07:00 Intake Total 320 ml 120 ml 200 ml Output Total 350 ml 300 ml 150 ml Balance -30 ml -180 ml 50 ml LAURA CROOKS MD Dec 28, 2018 11:51
--- NOTE | 2018-12-28 13:14 | NUR ---
Pharmacy Warfarin Dosing Note S:Pharmacy consulted to assist with anticoagulation therapy started with target INR: 2 -3 O:LEYDI TRUJILLO is a 83 year old F with Atrial Fibrillation LABS: Last INR: 1.4 Last HGB: 10.2 Last HCT: 32.4 Last PLT: 224 Last dose of 6 mg given on 12/27/18 at 1600 Previous Regimen: 3.5 MG /D Vitamin K given: N Drug Interaction Changes: Ongoing Drug Interactions: A:INR of 1.4 is below desired range. Target range for this patient is: 2 -3 P: Warfarin dose: 7.5 mg Today at 1600 Bridge Therapy: Heparin Therapeutic CONT Next INR due IN AM Pharmacy anticoagulation service will continue to follow. LUNA NIELSON Justo, 12/28/18 [id number]
[2018-12-28 15:00] VITALS: BP 133/65
--- NOTE | 2018-12-28 15:11 | PDOC ---
Provider Note Provider Note Vascular S: Patient seen and examined in room. States left leg pain improved since surgery. Tolerating diet O: Awake and alert HRR Non-labored Abdomen obese, soft, NTND Left groin Prevena removed, incision dry and intact, steristrips applied, foot warm, mild swelling. 2+ palpable DP pulse. A/P: Acutely ischemic left leg. POD # 1. Left femoral thromboembolectomy. 2. Left iliac thromboembolectomy. 3. Intraoperative retrograde left iliac arteriogram. 4. Left common iliac artery angioplasty and stent utilizing a 10 x 37 mm Kristie stent expanded to 8 atmospheres of pressure. 5. Completion arteriogram. 6. Left femoral artery bovine pericardial patch angioplasty. Continue Prevena vac, remove prior to discharge Continue anticoagulation per IM. INR today. Continue Plavix daily for stent maintenance. Up ad ascencion May shower. Follow up as scheduled. JUS SUAREZ APRN Dec 28, 2018 15:11
[2018-12-28] MEDS ORDERED: WARFARIN 7.5 MG TABLET. PO ONE (16:00)
[2018-12-28] MEDS: HEPARIN 25,000UTS/500ML PREMIX 500 ML IV PRN (16:56)
[2018-12-28 19:00] VITALS: BP 125/65
[2018-12-28] MEDS: ATORVASTATIN CALCIUM 20 MG TABLET PO SCH (21:34)
[2018-12-28 23:00] VITALS: BP 166/72
--- NOTE | 2018-12-29 01:51 | NUR ---
emar cleaned up of medications on 12/23. pmrn
[2018-12-29 03:00] VITALS: BP 146/67
[2018-12-29 05:21] LABS: HEMATOCRIT 26.8 % (36.0-47.0); HEMOGLOBIN 8.9 g/dL (12.0-15.5); RED BLOOD COUNT 2.86 x10^6/uL (3.50-5.40); RED CELL DISTRIBUTION WIDTH 13.7 % (11.5-14.5); WHITE BLOOD COUNT 7.9 x10^3/uL (4.0-11.0)
[2018-12-29 05:32] LABS: PROTHROMBIN TIME PATIENT 17.5 SEC (11.7-14.0)
[2018-12-29 05:34] LABS: UNFRACTIONATED HEPARIN TESTING 0.26 IU/mL (0.30-0.70)
[2018-12-29] MEDS: PANTOPRAZOLE 40 MG TABLET.DR. PO SCH (06:30)
--- NOTE | 2018-12-29 06:52 | NUR ---
pt magnesium level is 1.0, did not receive call from lab of critical value. dr castro religion professor notified new orders received. will inform am RN. PMRN
[2018-12-29 07:23] VITALS: BP 151/92
[2018-12-29] MEDS: MAGNESIUM OXIDE 400 MG TABLET PO SCH ×3 (08:17→21:58)
[2018-12-29] MEDS: FEBUXOSTAT 40 MG TABLET PO SCH (08:17)
[2018-12-29] MEDS: CLOPIDOGREL BISULFATE 75 MG TABLET PO SCH (08:17)
[2018-12-29] MEDS: AMOXICILLIN/K CLAV 875/125MG TABLET. PO SCH (08:17)
[2018-12-29] MEDS: amLODIPine BESYLATE 10 MG TABLET PO SCH (08:18)
[2018-12-29] MEDS: METOPROLOL SUCC 24HR ER 25 MG TAB.ER.24H. PO SCH (08:18)
[2018-12-29] MEDS: LACTOBACILLUS RHAMNOSUS GG 1 CAPSULE. PO SCH ×2 (08:18→21:58)
[2018-12-29] MEDS: LOSARTAN POTASSIUM 50 MG TABLET. PO SCH (08:18)
[2018-12-29] MEDS: DICLOFENAC SODIUM 1% TOPICAL GEL 100GM TUBE. TP SCH ×4 (08:21→21:58)
--- NOTE | 2018-12-29 09:19 | PDOC ---
Provider Note Provider Note Vascular S: Patient seen and examined in room. States left leg pain improved since surgery. Tolerating diet O: Awake and alert VSS HRR Non-labored Abdomen obese, soft, NTND Left groin incision dry and intact, steristrips applied, foot warm, mild swelling. 2+ palpable DP pulse. A/P: Acutely ischemic left leg. POD # 6 1. Left femoral thromboembolectomy. 2. Left iliac thromboembolectomy. 3. Intraoperative retrograde left iliac arteriogram. 4. Left common iliac artery angioplasty and stent utilizing a 10 x 37 mm Kristie stent expanded to 8 atmospheres of pressure. 5. Completion arteriogram. 6. Left femoral artery bovine pericardial patch angioplasty. Continue anticoagulation per IM. INR today. Continue Plavix daily for stent maintenance. Up ad ascencion May shower. Follow up as scheduled. JUS SUAREZ APRN Dec 29, 2018 09:19
--- NOTE | 2018-12-29 10:09 | PDOC ---
SURGICAL PROGRESS NOTE Subjective Pt is still doing well clinically, she is eating well and is having continued flatus and BM. SBO resolved and pt has resumed regular diet. Pts abdomen remains soft with no peritoneal signs. CBC remains normal and pt remains afebrile. Waiting on her INR to reach 2.0 with Coumadin before d/c. NO surgery planned at this time.Will continue to follow. Vital Signs Vital Signs Date Time Temp Pulse Resp B/P (MAP) Pulse Ox O2 Delivery O2 Flow Rate FiO2 12/29/18 08:18 71 151/92 12/29/18 08:00 Room Air 12/29/18 07:23 98.2 24 99 98.2 I&O Intake and Output 12/29/18 07:00 Intake Total 1060 ml Output Total 600 ml Balance 460 ml Intake Oral 1060 ml Output Urine Total 600 ml # Bowel Movements 1 Labs Laboratory Tests Test 12/27/18 12:05 12/28/18 06:15 12/29/18 05:00 Heparin Anti-Xa Act, Unfractionated 0.55 IU/mL (0.30-0.70) 0.40 IU/mL (0.30-0.70) 0.26 IU/mL (0.30-0.70) Prothrombin Time 16.4 SEC (11.7-14.0) 17.5 SEC (11.7-14.0) Prothromb Time International Ratio 1.4 (0.8-1.1) 1.5 (0.8-1.1) Sodium Level 143 mmol/L (136-145) Potassium Level 3.8 mmol/L (3.5-5.1) Chloride Level 111 mmol/L (98-107) Carbon Dioxide Level 22 mmol/L (21-32) Anion Gap 10 (6-14) Blood Urea Nitrogen 20 mg/dL (7-20) Creatinine 1.7 mg/dL (0.6-1.0) Estimated GFR (Cockcroft-Gault) 34.9 Glucose Level 91 mg/dL (70-99) Calcium Level 8.4 mg/dL (8.5-10.1) Magnesium Level 0.9 mg/dL (1.8-2.4) 1.0 mg/dL (1.8-2.4) White Blood Count 7.9 x10^3/uL (4.0-11.0) Red Blood Count 2.86 x10^6/uL (3.50-5.40) Hemoglobin 8.9 g/dL (12.0-15.5) Hematocrit 26.8 % (36.0-47.0) Mean Corpuscular Volume 93 fL (79-100) Mean Corpuscular Hemoglobin 31 pg (25-35) Mean Corpuscular Hemoglobin Concent 33 g/dL (31-37) Red Cell Distribution Width 13.7 % (11.5-14.5) Platelet Count 218 x10^3/uL (140-400) Laboratory Tests Test 12/29/18 05:00 White Blood Count 7.9 x10^3/uL (4.0-11.0) Red Blood Count 2.86 x10^6/uL (3.50-5.40) Hemoglobin 8.9 g/dL (12.0-15.5) Hematocrit 26.8 % (36.0-47.0) Mean Corpuscular Volume 93 fL (79-100) Mean Corpuscular Hemoglobin 31 pg (25-35) Mean Corpuscular Hemoglobin Concent 33 g/dL (31-37) Red Cell Distribution Width 13.7 % (11.5-14.5) Platelet Count 218 x10^3/uL (140-400) Prothrombin Time 17.5 SEC (11.7-14.0) Prothromb Time International Ratio 1.5 (0.8-1.1) Heparin Anti-Xa Act, Unfractionated 0.26 IU/mL (0.30-0.70) Magnesium Level 1.0 mg/dL (1.8-2.4) Problem List Problems Medical Problems: (1) Epigastric pain Status: Acute (2) Epigastric pain Status: Acute (3) Nausea Status: Acute (4) Nausea Status: Acute (5) Small bowel obstruction Status: Acute JASMYN MYERS MD Dec 29, 2018 10:09
[2018-12-29 10:24] VITALS: BP 125/78
--- NOTE | 2018-12-29 11:24 | PDOC ---
PROGRESS NOTES Subjective Subjective No new complaints. Objective Objective Vital Signs Date Time Temp Pulse Resp B/P (MAP) Pulse Ox O2 Delivery O2 Flow Rate FiO2 12/29/18 10:24 97.3 92 24 125/78 (94) 100 Room Air 97.3 12/24/18 15:00 4.0 Intake and Output 12/29/18 07:00 Intake Total 1060 ml Output Total 600 ml Balance 460 ml Intake Oral 1060 ml Output Urine Total 600 ml # Bowel Movements 1 Physical Exam Physical Exam She is alert,sitting in bedside chair and she is independent with her mobility and most of her self care at roller walker level. Assessment Assessment Problems Medical Problems: (1) Epigastric pain Status: Acute (2) Epigastric pain Status: Acute (3) Nausea Status: Acute (4) Nausea Status: Acute (5) Small bowel obstruction Status: Acute Plan Plan of Shelter when medically stable. Comment Review of Relevant I have reviewed the following items rubia (where applicable) has been applied. Labs Laboratory Tests Test 12/27/18 12:05 12/28/18 06:15 12/29/18 05:00 Heparin Anti-Xa Act, Unfractionated 0.55 IU/mL (0.30-0.70) 0.40 IU/mL (0.30-0.70) 0.26 IU/mL (0.30-0.70) Prothrombin Time 16.4 SEC (11.7-14.0) 17.5 SEC (11.7-14.0) Prothromb Time International Ratio 1.4 (0.8-1.1) 1.5 (0.8-1.1) Sodium Level 143 mmol/L (136-145) Potassium Level 3.8 mmol/L (3.5-5.1) Chloride Level 111 mmol/L (98-107) Carbon Dioxide Level 22 mmol/L (21-32) Anion Gap 10 (6-14) Blood Urea Nitrogen 20 mg/dL (7-20) Creatinine 1.7 mg/dL (0.6-1.0) Estimated GFR (Cockcroft-Gault) 34.9 Glucose Level 91 mg/dL (70-99) Calcium Level 8.4 mg/dL (8.5-10.1) Magnesium Level 0.9 mg/dL (1.8-2.4) 1.0 mg/dL (1.8-2.4) White Blood Count 7.9 x10^3/uL (4.0-11.0) Red Blood Count 2.86 x10^6/uL (3.50-5.40) Hemoglobin 8.9 g/dL (12.0-15.5) Hematocrit 26.8 % (36.0-47.0) Mean Corpuscular Volume 93 fL (79-100) Mean Corpuscular Hemoglobin 31 pg (25-35) Mean Corpuscular Hemoglobin Concent 33 g/dL (31-37) Red Cell Distribution Width 13.7 % (11.5-14.5) Platelet Count 218 x10^3/uL (140-400) Laboratory Tests Test 12/29/18 05:00 White Blood Count 7.9 x10^3/uL (4.0-11.0) Red Blood Count 2.86 x10^6/uL (3.50-5.40) Hemoglobin 8.9 g/dL (12.0-15.5) Hematocrit 26.8 % (36.0-47.0) Mean Corpuscular Volume 93 fL (79-100) Mean Corpuscular Hemoglobin 31 pg (25-35) Mean Corpuscular Hemoglobin Concent 33 g/dL (31-37) Red Cell Distribution Width 13.7 % (11.5-14.5) Platelet Count 218 x10^3/uL (140-400) Prothrombin Time 17.5 SEC (11.7-14.0) Prothromb Time International Ratio 1.5 (0.8-1.1) Heparin Anti-Xa Act, Unfractionated 0.26 IU/mL (0.30-0.70) Magnesium Level 1.0 mg/dL (1.8-2.4) Microbiology 12/18/18 Urine Culture - Final, Complete 12/18/18 Urine Culture Result 1 (ALEJANDRINA) - Final, Complete Medications Current Medications Ondansetron HCl (Zofran) 4 mg 1X ONCE IM ; Start 12/16/18 at 09:30; Stop 12/16/18 at 09:31; Status DC Fentanyl Citrate (Fentanyl 2ml Vial) 75 mcg 1X ONCE IVP Last administered on 12/16/18at 09:46; Start 12/16/18 at 09:45; Stop 12/16/18 at 09:46; Status DC Ondansetron HCl (Zofran) 4 mg 1X ONCE IVP Last administered on 12/16/18at 09:51; Start 12/16/18 at 10:00; Stop 12/16/18 at 10:01; Status DC Sodium Chloride 1,000 ml @ 1,000 mls/hr 1X ONCE IV Last administered on 12/16/18at 10:40; Start 12/16/18 at 10:15; Stop 12/16/18 at 11:14; Status DC Clonidine HCl (Catapres) 0.1 mg 1X ONCE PO Last administered on 12/16/18at 15:12; Start 12/16/18 at 14:15; Stop 12/16/18 at 14:16; Status DC Fentanyl Citrate (Fentanyl 2ml Vial) 75 mcg 1X ONCE IVP ; Start 12/16/18 at 15:15; Stop 12/16/18 at 15:16; Status DC Ondansetron HCl (Zofran) 4 mg PRN Q8HRS PRN IV NAUSEA/VOMITING; Start 12/16/18 at 15:15; Stop 12/16/18 at 17:10; Status DC Fentanyl Citrate (Fentanyl 2ml Vial) 50 mcg PRN Q1HR PRN IV PAIN Last administered on 12/17/18at 07:28; Start 12/16/18 at 15:15; Stop 12/17/18 at 15:14; Status DC Sodium Chloride 1,000 ml @ 125 mls/hr Q8H IV ; Start 12/16/18 at 15:10; Stop 12/16/18 at 17:26; Status DC Acetaminophen (Tylenol) 650 mg PRN Q4HRS PRN PO FEVER; Start 12/16/18 at 15:15; Stop 12/17/18 at 15:14; Status DC Potassium Chloride/Dextrose/ Sod Cl 1,000 ml @ 100 mls/hr Q10H IV Last administered on 12/18/18at 01:27; Start 12/16/18 at 17:00; Stop 12/18/18 at 10:34; Status DC Ondansetron HCl (Zofran) 4 mg PRN Q6HRS PRN IVP NAUSEA/VOMITING Last administer ed on 12/18/18at 21:17; Start 12/16/18 at 17:00 Hydralazine HCl (Apresoline Inj) 10 mg PRN Q6HRS PRN IVP ELEVATED BP, SEE COMM ENTS Last administered on 12/28/18at 11:08; Start 12/17/18 at 01:00 Enoxaparin Sodium (Lovenox 100mg Syringe) 100 mg DAILY SQ Last administered on 12/17/18at 12:49; Start 12/17/18 at 10:30; Stop 12/19/18 at 09:14; Status DC Info (Anti-Coagulation Monitoring By Pharmacy) 1 each PRN DAILY PRN MC SEE COMMENTS Last administered on 12/27/18at 12:46; Start 12/17/18 at 10:15 Pantoprazole Sodium (PROTONIX VIAL for IV PUSH) 40 mg DAILYAC IVP Last administered on 12/25/18at 06:23; Start 12/17/18 at 10:30; Stop 12/25/18 at 10:27; Status DC Acetaminophen (Tylenol Supp) 650 mg PRN Q6HRS PRN [place] HEADACHE / TEMP; Start 12/17/18 at 10:00; Stop 12/25/18 at 10:27; Status DC Fentanyl Citrate (Fentanyl 2ml Vial) 50 mcg PRN Q4HRS PRN IVP PAIN Last administered on 12/23/18at 22:01; Start 12/17/18 at 10:00; Stop 12/27/18 at 09:54; Status DC Insulin Human Lispro (HumaLOG) 0-6 UNITS BG 300-399... Q6HRS SQ ; Start 12/17/18 at 12:00; Stop 12/17/18 at 10:24; Status DC Ceftriaxone Sodium (Rocephin) 1 gm Q24H IVP Last administered on 12/21/18at 12:42; Start 12/18/18 at 11:00; Stop 12/22/18 at 10:07; Status DC Dextrose/Sodium Chloride 1,000 ml @ 150 mls/hr Q6H40M IV Last administered on 12/20/18at 03:00; Start 12/18/18 at 10:30; Stop 12/20/18 at 09:52; Status DC Bupivacaine HCl/ Epinephrine Bitart (Sensorcain-Epi 0.5%-1:[id number] Mpf) 30 ml 1X ONCE INJ ; Start 12/18/18 at 15:00; Stop 12/18/18 at 15:01; Status Cancel Bupivacaine HCl/ Epinephrine Bitart (Sensorcain-Epi 0.5%-1:967103 Mpf) 30 ml 1X ONCE INJ Last administered on 12/19/18at 06:00; Start 12/19/18 at 06:00; Stop 12/19/18 at 06:01; Status DC Ondansetron HCl (Zofran) 4 mg PRN Q6HRS PRN IV NAUSEA/VOMITING; Start 12/19/18 at 07:00; Stop 12/20/18 at 06:59; Status DC Fentanyl Citrate (Fentanyl 2ml Vial) 25 mcg PRN Q5MIN PRN IV MILD PAIN 1-3; Start 12/19/18 at 07:00; Stop 12/20/18 at 06:59; Status DC Fentanyl Citrate (Fentanyl 2ml Vial) 50 mcg PRN Q5MIN PRN IV MODERATE TO SEVERE PAIN; Start 12/19/18 at 07:00; Stop 12/20/18 at 06:59; Status DC Morphine Sulfate (Morphine Sulfate) 1 mg PRN Q10MIN PRN IV SEVERE PAIN 7-10; Start 12/19/18 at 07:00; Stop 12/20/18 at 06:59; Status DC Ringer's Solution 1,000 ml @ 30 mls/hr Q24H IV ; Start 12/19/18 at 07:00; Stop 12/19/18 at 18:59; Status DC Lidocaine HCl (Xylocaine-Mpf 1% 2ml Vial) 2 ml PRN 1X PRN ID PRIOR TO IV START; Start 12/19/18 at 07:00; Stop 12/20/18 at 06:59; Status DC Hydromorphone HCl (Dilaudid) 0.5 mg PRN Q10MIN PRN IV SEV PAIN, Second choice; Start 12/19/18 at 07:00; Stop 12/20/18 at 06:59; Status DC Prochlorperazine Edisylate (Compazine) 5 mg PACU PRN PRN IV NAUSEA, MRX1; Start 12/19/18 at 07:00; Stop 12/20/18 at 06:59; Status DC Phytonadione 10 mg/Dextrose 51 ml @ 102 mls/hr 1X ONCE IV Last administered on 12/19/18at 10:37; Start 12/19/18 at 09:15; Stop 12/19/18 at 09:44; Status DC Potassium Chloride/Dextrose/ Sod Cl 1,000 ml @ 150 mls/hr Q6H40M IV Last administered on 12/21/18at 03:26; Start 12/20/18 at 11:00; Stop 12/21/18 at 11:06; Status DC Lidocaine HCl (Lidocaine Pf 2% Vial) 5 ml STK-MED ONCE .ROUTE ; Start 12/20/18 at 11:14; Stop 12/20/18 at 11:14; Status DC Neostigmine Methylsulfate (Bloxiverz) 10 mg STK-MED ONCE .ROUTE ; Start 12/20/18 at 11:16; Stop 12/20/18 at 11:17; Status DC Rocuronium [place] (Zemuron) 50 mg STK-MED ONCE .ROUTE ; Start 12/20/18 at 11:17; Stop 12/20/18 at 11:17; Status DC Fentanyl Citrate (Fentanyl 2ml Vial) 100 mcg STK-MED ONCE .ROUTE ; Start 12/20/18 at 11:17; Stop 12/20/18 at 11:18; Status DC Midazolam HCl (Versed) 2 mg STK-MED ONCE .ROUTE ; Start 12/20/18 at 11:17; Stop 12/20/18 at 11:18; Status DC Glycopyrrolate (Robinul) 1 mg STK-MED ONCE .ROUTE ; Start 12/20/18 at 11:17; Stop 12/20/18 at 11:18; Status DC Succinylcholine Chloride (Anectine) 200 mg STK-MED ONCE .ROUTE ; Start 12/20/18 at 11:21; Stop 12/20/18 at 11:21; Status DC Diclofenac Sodium (Voltaren) 1 marilyn QID TP Last administered on 12/29/18at 08:21; Start 12/21/18 at 13:00 Dextrose/Sodium Chloride 1,000 ml @ 125 mls/hr Q8H IV Last administered on 12/23/18at 03:30; Start 12/21/18 at 11:15; Stop 12/23/18 at 11:59; Status DC Methylprednisolone Acetate (DEPO-Medrol 40MG VIAL) 40 mg 1X ONCE IM Last administered on 12/21/18at 12:00; Start 12/21/18 at 12:00; Stop 12/21/18 at 12:01; Status DC Bupivacaine HCl (Sensorcaine-Mpf 0.25%) 10 ml 1X ONCE IJ Last administered on 12/21/18at 12:00; Start 12/21/18 at 12:00; Stop 12/21/18 at 12:01; Status DC Piperacillin Sod/ Tazobactam Sod 3.375 gm/Sodium Chloride 50 ml @ 100 mls/hr Q6HRS IV Last administered on 12/26/18at 05:37; Start 12/22/18 at 12:00; Stop 12/26/18 at 08:41; Status DC Heparin Sodium/ Dextrose 500 ml @ 32 mls/min CONT PRN IV SEE PROTOCOL; Start 12/22/18 at 14:30; Stop 12/22/18 at 20:12; Status DC Heparin Sodium (Porcine) (Heparin Sodium) 3,050 unit PRN Q6HRS PRN IV FOR UFH LEVEL LESS THAN 0.2; Start 12/22/18 at 14:30; Stop 12/22/18 at 20:10; Status DC Heparin Sodium (Porcine) (Heparin Sodium) 1,550 unit PRN Q6HRS PRN IV FOR UFH LEVEL 0.2 - 0.29; Start 12/22/18 at 14:30; Stop 12/22/18 at 20:10; Status DC Heparin Sodium (Porcine) (Heparin Sodium) 5,000 unit Q8HRS SQ Last administered on 12/22/18at 22:11; Start 12/22/18 at 22:00; Stop 12/23/18 at 06:10; Status DC Fentanyl Citrate (Fentanyl 2ml Vial) 25 mcg 1X ONCE IVP Last administered on 12/23/18at 03:21; Start 12/23/18 at 03:30; Stop 12/23/18 at 03:31; Status DC Heparin Sodium (Porcine) (Heparin Sodium) 5,000 unit 1X STAT IV ; Start 12/23/18 at 05:58; Stop 12/23/18 at 05:59; Status UNV Heparin Sodium/ Dextrose 500 ml @ 0 mls/hr CONT PRN IV SEE I/O RECORD; Start 12/23/18 at 06:00; Status UNV Heparin Sodium (Porcine) (Heparin Sodium) 5,000 unit 1X ONCE IV Last administered on 12/23/18at 06:16; Start 12/23/18 at 06:30; Stop 12/23/18 at 06:31; Status DC Heparin Sodium/ Dextrose 500 ml @ 24 mls/hr CONT PRN PRN IV DVT Last administered on 12/28/18at 16:56; Start 12/23/18 at 06:30 Heparin Sodium (Porcine) (Heparin Sodium) 3,050 unit PRN Q6HRS PRN IV FOR UFH LEVEL LESS THAN 0.2 Last administered on 12/27/18at 00:08; Start 12/23/18 at 06:15 Heparin Sodium (Porcine) (Heparin Sodium) 1,550 unit PRN Q6HRS PRN IV FOR UFH LEVEL 0.2 - 0.29 Last administered on 12/29/18at 06:36; Start 12/23/18 at 06:15 Propofol 20 ml @ As Directed STK-MED ONCE IV ; Start 12/23/18 at 06:28; Stop 12/23/18 at 06:28; Status DC Lidocaine HCl (Lidocaine Pf 2% Vial) 5 ml STK-MED ONCE .ROUTE ; Start 12/23/18 at 06:28; Stop 12/23/18 at 06:28; Status DC Fentanyl Citrate (Fentanyl 2ml Vial) 100 mcg STK-MED ONCE .ROUTE ; Start 12/23/18 at 06:28; Stop 12/23/18 at 06:28; Status DC Rocuronium [place] (Zemuron) 50 mg STK-MED ONCE .ROUTE ; Start 12/23/18 at 06:28; Stop 12/23/18 at 06:28; Status DC Heparin Sodium (Porcine) 5000 unit/Sodium Chloride 505 ml @ 505 mls/hr 1X ONCE IRR ; Start 12/23/18 at 07:30; Stop 12/23/18 at 08:29; Status DC Cefazolin Sodium 1 gm/Sodium Chloride 500 ml @ 500 mls/hr 1X ONCE IRR Last administered on 12/23/18at 08:33; Start 12/23/18 at 07:30; Stop 12/23/18 at 08:29; Status DC Lidocaine HCl 16 ml/Sodium Bicarbonate 4 meq/ Miscellaneous 20 ml @ 20 mls/hr 1X ONCE ID Last administered on 12/23/18at 08:33; Start 12/23/18 at 07:30; Stop 12/23/18 at 08:29; Status DC Ondansetron HCl (Zofran) 4 mg PRN Q6HRS PRN IV NAUSEA/VOMITING; Start 12/23/18 at 07:30; Stop 12/24/18 at 07:29; Status DC Fentanyl Citrate (Fentanyl 2ml Vial) 25 mcg PRN Q5MIN PRN IV MILD PAIN 1-3; Start 12/23/18 at 07:30; Stop 12/24/18 at 07:29; Status DC Fentanyl Citrate (Fentanyl 2ml Vial) 50 mcg PRN Q5MIN PRN IV MODERATE TO SEVERE PAIN; Start 12/23/18 at 07:30; Stop 12/24/18 at 07:29; Status DC Morphine Sulfate (Morphine Sulfate) 1 mg PRN Q10MIN PRN IV SEVERE PAIN 7-10; Start 12/23/18 at 07:30; Stop 12/24/18 at 07:29; Status DC Ringer's Solution 1,000 ml @ 30 mls/hr Q24H IV ; Start 12/23/18 at 07:21; Stop 12/23/18 at 19:20; Status DC Lidocaine HCl (Xylocaine-Mpf 1% 2ml Vial) 2 ml PRN 1X PRN ID PRIOR TO IV START; Start 12/23/18 at 07:30; Stop 12/24/18 at 07:29; Status DC Hydromorphone HCl (Dilaudid) 0.5 mg PRN Q10MIN PRN IV SEV PAIN, Second choice; Start 12/23/18 at 07:30; Stop 12/24/18 at 07:29; Status DC Prochlorperazine Edisylate (Compazine) 5 mg PACU PRN PRN IV NAUSEA, MRX1; Start 12/23/18 at 07:30; Stop 12/24/18 at 07:29; Status DC Succinylcholine Chloride (Anectine) 200 mg STK-MED ONCE .ROUTE ; Start 12/23/18 at 07:45; Stop 12/23/18 at 07:46; Status DC Fentanyl Citrate (Fentanyl 2ml Vial) 100 mcg STK-MED ONCE .ROUTE ; Start 12/23/18 at 08:24; Stop 12/23/18 at 08:24; Status DC Labetalol HCl (Normodyne Iv Push) 10 mg 1X ONCE IVP ; Start 12/23/18 at 08:30; Stop 12/23/18 at 08:31; Status DC Phenylephrine HCl (Cheko-Synephrine Inj) 10 mg STK-MED ONCE .ROUTE ; Start 12/23/18 at 08:48; Stop 12/23/18 at 08:48; Status DC Iohexol (Omnipaque 300 Mg/ml) 50 ml STK-MED ONCE .ROUTE Last administered on 12/23/18at 08:33; Start 12/23/18 at 09:05; Stop 12/23/18 at 09:05; Status DC Hydrocortisone Sodium Succinate (Solu-CORTEF) 100 mg STK-MED ONCE .ROUTE ; Start 12/23/18 at 09:06; Stop 12/23/18 at 09:06; Status DC Dexamethasone Sodium Phosphate (Decadron) 4 mg STK-MED ONCE .ROUTE ; Start 12/23/18 at 09:06; Stop 12/23/18 at 09:06; Status DC Ondansetron HCl (Zofran) 4 mg STK-MED ONCE .ROUTE ; Start 12/23/18 at 09:06; Stop 12/23/18 at 09:06; Status DC Famotidine (Pepcid Vial) 20 mg STK-MED ONCE .ROUTE ; Start 12/23/18 at 09:06; Stop 12/23/18 at 09:07; Status DC Neostigmine Methylsulfate (Neostigmine Methylsulfate) 5 mg STK-MED ONCE .ROUTE ; Start 12/23/18 at 09:10; Stop 12/23/18 at 09:10; Status DC Glycopyrrolate (Robinul) 1 mg STK-MED ONCE .ROUTE ; Start 12/23/18 at 09:10; Stop 12/23/18 at 09:11; Status DC Heparin Sodium (Porcine) (Heparin Sodium) 10,000 unit STK-MED ONCE .ROUTE ; Start 12/23/18 at 09:23; Stop 12/23/18 at 09:23; Status DC Iohexol (Omnipaque 300 Mg/ml) 50 ml STK-MED ONCE .ROUTE Last administered on 12/23/18at 08:33; Start 12/23/18 at 09:28; Stop 12/23/18 at 09:28; Status DC Sevoflurane (Ultane) 90 ml STK-MED ONCE IH ; Start 12/23/18 at 09:44; Stop 12/23/18 at 09:44; Status DC Hydrocortisone Sodium Succinate (Solu-CORTEF) 100 mg 1X ONCE IV ; Start 12/23/18 at 11:00; Stop 12/23/18 at 11:15; Status DC Labetalol HCl (Normodyne Iv Push) 5 mg PRN Q10MIN PRN IVP HYPERTENSION Last administered on 12/23/18at 11:24; Start 12/23/18 at 11:30; Stop 12/25/18 at 10:27; Status DC Potassium Chloride/Dextrose/ Sod Cl 1,000 ml @ 125 mls/hr Q8H IV Last administered on 12/24/18at 08:24; Start 12/23/18 at 12:00; Stop 12/24/18 at 09:51; Status DC Potassium Chloride/Dextrose/ Sod Cl 1,000 ml @ 125 mls/hr Q8H IV Last administered on 12/25/18at 06:44; Start 12/24/18 at 10:30; Stop 12/25/18 at 10:27; Status DC Clopidogrel Bisulfate (Plavix) 75 mg 1X ONCE PO ; Start 12/25/18 at 09:15; Stop 12/25/18 at 09:16; Status DC Amlodipine Besylate (Norvasc) 5 mg DAILY PO Last administered on 12/26/18at 10:08; Start 12/25/18 at 12:00; Stop 12/26/18 at 10:26; Status DC Atorvastatin Calcium (Lipitor) 20 mg QHS PO Last administered on 12/28/18at 21:34; Start 12/25/18 at 21:00 Metoprolol Succinate (Toprol Xl) 25 mg DAILY PO Last administered on 12/29/18at 08:18; Start 12/25/18 at 11:00 Acetaminophen (Tylenol) 650 mg PRN Q6HRS PRN PO MILD PAIN / TEMP; Start 12/25/18 at 10:30 Sodium Chloride 1,000 ml @ 60 mls/hr [id number] IV Last administered on 12/27at 09:49; Start 12/25/18 at 10:30; Stop 12/27/18 at 19:41; Status DC Acetaminophen/ Hydrocodone Bitart (Lortab 5/325) 1 tab PRN Q4HRS PRN PO PAIN; Start 12/25/18 at 10:45 Febuxostat (Uloric) 40 mg DAILY PO Last administered on 12/29/18at 08:17; Start 12/26/18 at 09:00 Clopidogrel Bisulfate (Plavix) 75 mg DAILYWBKFT PO Last administered on 12/29/18at 08:17; Start 12/26/18 at 08:00 Warfarin Sodium (Coumadin Per Pharmacy) 1 each PRN DAILY PRN MC SEE COMMENTS Last administered on 12/28/18at 11:12; Start 12/26/18 at 08:00 Warfarin Sodium (Coumadin) 4 mg 1X WARF ONCE PO ; Start 12/25/18 at 16:47; Stop 12/25/18 at 16:48; Status DC Amoxicillin/ Clavulanate Potassium (Augmentin 875/ 125mg) 1 tab BID PO Last administered on 12/29/18at 08:17; Start 12/26/18 at 09:00; Stop 12/29/18 at 12:00 Lactobacillus Rhamnosus (Culturelle) 1 cap BID PO Last administered on 12/29/18at 08:18; Start 12/26/18 at 12:00 Amlodipine Besylate (Norvasc) 10 mg DAILY PO Last administered on 12/29/18at 08:18; Start 12/27/18 at 09:00 Warfarin Sodium (Coumadin) 5 mg DAILY16 PO Last administered on 12/26/18at 16:49; Start 12/26/18 at 16:00; Stop 12/27/18 at 12:28; Status DC Amlodipine Besylate (Norvasc) 5 mg 1X ONCE PO ; Start 12/26/18 at 10:30; Stop 12/26/18 at 16:06; Status DC Pantoprazole Sodium (Protonix) 40 mg DAILYAC PO Last administered on 12/29/18at 06:30; Start 12/26/18 at 11:00 Amlodipine Besylate (Norvasc) 5 mg 1X ONCE PO Last administered on 12/26/18at 16:48; Start 12/26/18 at 16:15; Stop 12/26/18 at 16:16; Status DC Amlodipine Besylate (Norvasc) 5 mg STK-MED ONCE .ROUTE ; Start 12/26/18 at 16:08; Stop 12/26/18 at 16:09; Status DC Potassium Chloride (Klor-Con) 20 meq 1X ONCE PO Last administered on 12/27/18at 13:13; Start 12/27/18 at 10:30; Stop 12/27/18 at 10:31; Status DC Losartan Potassium (Cozaar) 50 mg DAILY PO Last administered on 12/29/18at 08:18; Start 12/27/18 at 11:00 Warfarin Sodium (Coumadin) 6 mg 1X WARF ONCE PO Last administered on 12/27/18at 16:35; Start 12/27/18 at 16:00; Stop 12/27/18 at 16:01; Status DC Warfarin Sodium (Coumadin) 7.5 mg 1X WARF ONCE PO Last administered on 12/28/18at 16:51; Start 12/28/18 at 16:00; Stop 12/28/18 at 16:01; Status DC Magnesium Oxide (Magnesium Oxide) 400 mg TID PO Last administered on 12/29/18at 08:17; Start 12/29/18 at 09:00 Active Scripts Active Reported Losartan Potassium 100 Mg Tablet 100 Mg PO DAILY Multi-Vitamin Daily (Multivitamin) 1 Each Tablet 1 Tab PO DAILY 30 Days Coumadin (Warfarin Sodium) 4 Mg Tablet 3.5 Mg PO DAILY Atorvastatin Calcium 20 Mg Tablet 1 Tab PO DAILY Toprol Xl (Metoprolol Succinate) 50 Mg Tab.er.24h 25 Mg PO DAILY Amlodipine Besylate 10 Mg Tablet 10 Mg PO DAILY Uloric (Febuxostat) 40 Mg Tablet 1 Tab PO DAILY Detrol La (Tolterodine Tartrate) 4 Mg Cap.er.24h 1 Cap PO DAILY Vitals/I & O Vital Sign - Last 24 Hours 12/28/18 12/28/18 12/28/18 12/28/18 15:00 19:00 19:50 23:00 Temp 97.8 98.2 98.8 97.8 98.2 98.8 Pulse 73 71 82 Resp 18 24 28 B/P (MAP) 133/65 (87) 125/65 (85) 166/72 (103) Pulse Ox 98 97 97 O2 Delivery Room Air Room Air Room Air Room Air 12/29/18 12/29/18 12/29/18 12/29/18 03:00 07:23 08:00 08:18 Temp 98.0 98.2 98.0 98.2 Pulse 81 71 71 Resp 24 24 B/P (MAP) 146/67 (93) 151/92 (111) 151/92 Pulse Ox 97 99 O2 Delivery Room Air Room Air Room Air 12/29/18 12/29/18 12/29/18 08:18 08:18 10:24 Temp 97.3 97.3 Pulse 71 71 92 Resp 24 B/P (MAP) 151/92 151/92 125/78 (94) Pulse Ox 100 O2 Delivery Room Air Intake and Output 12/28/18 12/28/18 12/29/18 15:00 23:00 07:00 Intake Total 480 ml 580 ml Output Total 150 ml 250 ml 200 ml Balance 330 ml 330 ml -200 ml ERIKA NELSON MD Dec 29, 2018 11:24
--- NOTE | 2018-12-29 14:11 | PDOC ---
SUBJECTIVE ROS States she had a BM today , anticipating dc on Tuesday , feels fine OBJECTIVE Vital Signs Vital Signs Date Time Temp Pulse Resp B/P (MAP) Pulse Ox O2 Delivery O2 Flow Rate FiO2 12/29/18 10:24 97.3 92 24 125/78 (94) 100 Room Air 97.3 I & 0 l Intake and Output 12/29/18 07:00 Intake Total 1060 ml Output Total 600 ml Balance 460 ml Intake Oral 1060 ml Output Urine Total 600 ml # Bowel Movements 1 PHYSICAL EXAM Physical Exam GEN- NAD HEENT: OM moist NECK: supple HEART RRR LUNGS: Clear, Non labored ABDOMEN: Soft, obese. EXTREMITIES: NO LE edema SKIN: No rashes. NEUROLOGICAL: Grossly normal; - No CVA or SP tenderness DIAGNOSIS/ASSESSMENT Assessment & Plan WILLIAMS - Suspect ATN 2//2 Poor Po intake, Vomiting, SBO , UA unremarkable, Renal US Unremarkable , renal function stable E-Lytes Stable, suppportive care, keep scheduled appt with Dr. Cavanaugh after dc CKD stage 3 - Follows with Dr. Cavanaugh Q 6 months Solitary Kidney - S/P Lt Nephrectomy SBO- Improved Acutely ischemic left leg. s/p Left femoral and Lt Iliac thromboembolectomy., arteriogram HTN- antihypretensives, currently Losartan 50 mg po qd , Renal function at baseline Chronic atrial fibrillation- per Cardiology COMMENT/RELEVANT DATA Meds Current Medications Medications (Trade) Dose Ordered Sig/Nimco Start Time Stop Time Status Last Admin Dose Admin Acetaminophen (Tylenol Supp) 650 mg PRN Q6HRS PRN 12/17/18 10:00 12/25/18 10:27 DC Acetaminophen (Tylenol) 650 mg PRN Q6HRS PRN 12/25/18 10:30 Acetaminophen/ Hydrocodone Bitart (Lortab 5/325) 1 tab PRN Q4HRS PRN 12/25/18 10:45 Amlodipine Besylate (Norvasc) 5 mg STK-MED ONCE 12/26/18 16:08 12/26/18 16:09 DC Amoxicillin/ Clavulanate Potassium (Augmentin 875/ 125mg) 1 tab BID 12/26/18 09:00 12/29/18 12:00 DC 12/29/18 08:17 1 TAB Atorvastatin Calcium (Lipitor) 20 mg QHS 12/25/18 21:00 12/28/18 21:34 20 MG Bupivacaine HCl (Sensorcaine-Mpf 0.25%) 10 ml 1X ONCE 12/21/18 12:00 12/21/18 12:01 DC 12/21/18 12:00 10 ML Bupivacaine HCl/ Epinephrine Bitart (Sensorcain-Epi 0.5%-1:566640 Mpf) 30 ml 1X ONCE 12/19/18 06:00 12/19/18 06:01 DC 12/19/18 06:00 30 ML Cefazolin Sodium 1 gm/Sodium Chloride 500 ml @ 500 mls/hr 1X ONCE 12/23/18 07:30 12/23/18 08:29 DC 12/23/18 08:33 Ceftriaxone Sodium (Rocephin) 1 gm Q24H 12/18/18 11:00 12/22/18 10:07 DC 12/21/18 12:42 1 GM Clonidine HCl (Catapres) 0.1 mg 1X ONCE 12/16/18 14:15 12/16/18 14:16 DC 12/16/18 15:12 0.1 MG Clopidogrel Bisulfate (Plavix) 75 mg [id number] 12/26/18 08:00 12/29/18 08:17 75 MG Dexamethasone Sodium Phosphate (Decadron) 4 mg STK-MED ONCE 12/23/18 09:06 12/23/18 09:06 DC Dextrose/Sodium Chloride 1,000 ml @ 125 mls/hr Q8H 12/21/18 11:15 12/23/18 11:59 DC 12/23/18 03:30 125 MLS/HR Diclofenac Sodium (Voltaren) 1 marilyn QID 12/21/18 13:00 12/29/18 13:00 1 MARILYN Enoxaparin Sodium (Lovenox 100mg Syringe) 100 mg DAILY 12/17/18 10:30 12/19/18 09:14 DC 12/17/18 12:49 100 MG Famotidine (Pepcid Vial) 20 mg STK-MED ONCE 12/23/18 09:06 12/23/18 09:07 DC Febuxostat (Uloric) 40 mg DAILY 12/26/18 09:00 12/29/18 08:17 40 MG Fentanyl Citrate (Fentanyl 2ml Vial) 100 mcg STK-MED ONCE 12/23/18 08:24 12/23/18 08:24 DC Glycopyrrolate (Robinul) 1 mg STK-MED ONCE 12/23/18 09:10 12/23/18 09:11 DC Heparin Sodium (Porcine) (Heparin Sodium) 10,000 unit STK-MED ONCE 12/23/18 09:23 12/23/18 09:23 DC Heparin Sodium (Porcine) 5000 unit/Sodium Chloride 505 ml @ 505 mls/hr 1X ONCE 12/23/18 07:30 12/23/18 08:29 DC Heparin Sodium/ Dextrose 500 ml @ 24 mls/hr CONT PRN PRN 12/23/18 06:30 12/28/18 16:56 24 MLS/HR Hydralazine HCl (Apresoline Inj) 10 mg PRN Q6HRS PRN 12/17/18 01:00 12/28/18 11:08 10 MG Hydrocortisone Sodium Succinate (Solu-CORTEF) 100 mg 1X ONCE 12/23/18 11:00 12/23/18 11:15 DC Hydromorphone HCl (Dilaudid) 0.5 mg PRN Q10MIN PRN 12/23/18 07:30 12/24/18 07:29 DC Info (Anti-Coagulation Monitoring By Pharmacy) 1 each PRN DAILY PRN 12/17/18 10:15 12/27/18 12:46 1 EACH Insulin Human Lispro (HumaLOG) 0-6 UNITS BG 300-399... Q6HRS 12/17/18 12:00 12/17/18 10:24 DC Iohexol (Omnipaque 300 Mg/ml) 50 ml STK-MED ONCE 12/23/18 09:28 12/23/18 09:28 DC 12/23/18 08:33 50 ML Labetalol HCl (Normodyne Iv Push) 5 mg PRN Q10MIN PRN 12/23/18 11:30 12/25/18 10:27 DC 12/23/18 11:24 5 MG Lactobacillus Rhamnosus (Culturelle) 1 cap BID 12/26/18 12:00 12/29/18 08:18 1 CAP Lidocaine HCl (Lidocaine Pf 2% Vial) 5 ml STK-MED ONCE 12/23/18 06:28 12/23/18 06:28 DC Lidocaine HCl (Xylocaine-Mpf 1% 2ml Vial) 2 ml PRN 1X PRN 12/23/18 07:30 12/24/18 07:29 DC Lidocaine HCl 16 ml/Sodium Bicarbonate 4 meq/ Miscellaneous 20 ml @ 20 mls/hr 1X ONCE 12/23/18 07:30 12/23/18 08:29 DC 12/23/18 08:33 Losartan Potassium (Cozaar) 50 mg DAILY 12/27/18 11:00 12/29/18 08:18 50 MG Magnesium Oxide (Magnesium Oxide) 400 mg TID 12/29/18 09:00 12/29/18 13:48 400 MG Methylprednisolone Acetate (DEPO-Medrol 40MG VIAL) 40 mg 1X ONCE 12/21/18 12:00 12/21/18 12:01 DC 12/21/18 12:00 40 MG Metoprolol Succinate (Toprol Xl) 25 mg DAILY 12/25/18 11:00 12/29/18 08:18 25 MG Midazolam HCl (Versed) 2 mg STK-MED ONCE 12/20/18 11:17 12/20/18 11:18 DC Morphine Sulfate (Morphine Sulfate) 1 mg PRN Q10MIN PRN 12/23/18 07:30 12/24/18 07:29 DC Neostigmine Methylsulfate (Bloxiverz) 10 mg STK-MED ONCE 12/20/18 11:16 12/20/18 11:17 DC Neostigmine Methylsulfate (Neostigmine Methylsulfate) 5 mg STK-MED ONCE 12/23/18 09:10 12/23/18 09:10 DC Ondansetron HCl (Zofran) 4 mg STK-MED ONCE 12/23/18 09:06 12/23/18 09:06 DC Pantoprazole Sodium (PROTONIX VIAL for IV PUSH) 40 mg DAILYAC 12/17/18 10:30 12/25/18 10:27 DC 12/25/18 06:23 40 MG Pantoprazole Sodium (Protonix) 40 mg DAILYAC 12/26/18 11:00 12/29/18 06:30 40 MG Phenylephrine HCl (Cheko-Synephrine Inj) 10 mg STK-MED ONCE 12/23/18 08:48 12/23/18 08:48 DC Phytonadione 10 mg/Dextrose 51 ml @ 102 mls/hr 1X ONCE 12/19/18 09:15 12/19/18 09:44 DC 12/19/18 10:37 102 MLS/HR Piperacillin Sod/ Tazobactam Sod 3.375 gm/Sodium Chloride 50 ml @ 100 mls/hr Q6HRS 12/22/18 12:00 12/26/18 08:41 DC 12/26/18 05:37 100 MLS/HR Potassium Chloride/Dextrose/ Sod Cl 1,000 ml @ 125 mls/hr Q8H 12/24/18 10:30 12/25/18 10:27 DC 12/25/18 06:44 125 MLS/HR Potassium Chloride (Klor-Con) 20 meq 1X ONCE 12/27/18 10:30 12/27/18 10:31 DC 12/27/18 13:13 20 MEQ Prochlorperazine Edisylate (Compazine) 5 mg PACU PRN PRN 12/23/18 07:30 12/24/18 07:29 DC Propofol 20 ml @ As Directed STK-MED ONCE 12/23/18 06:28 12/23/18 06:28 DC Ringer's Solution 1,000 ml @ 30 mls/hr Q24H 12/23/18 07:21 12/23/18 19:20 DC Rocuronium Kaleva (Zemuron) 50 mg STK-MED ONCE 12/23/18 06:28 12/23/18 06:28 DC Sevoflurane (Ultane) 90 ml STK-MED ONCE 12/23/18 09:44 12/23/18 09:44 DC Sodium Chloride 1,000 ml @ 60 mls/hr [id number] 12/25/18 10:30 12/27/18 19:41 DC 12/27/18 09:49 60 MLS/HR Succinylcholine Chloride (Anectine) 200 mg STK-MED ONCE 12/23/18 07:45 12/23/18 07:46 DC Warfarin Sodium (Coumadin Per Pharmacy) 1 each PRN DAILY PRN 12/26/18 08:00 12/28/18 11:12 1 EACH Warfarin Sodium (Coumadin) 7.5 mg 1X WARF ONCE 12/28/18 16:00 12/28/18 16:01 DC 12/28/18 16:51 7.5 MG Lab Laboratory Tests Test 12/29/18 05:00 12/29/18 12:05 White Blood Count 7.9 x10^3/uL (4.0-11.0) Red Blood Count 2.86 x10^6/uL (3.50-5.40) Hemoglobin 8.9 g/dL (12.0-15.5) Hematocrit 26.8 % (36.0-47.0) Mean Corpuscular Volume 93 fL (79-100) Mean Corpuscular Hemoglobin 31 pg (25-35) Mean Corpuscular Hemoglobin Concent 33 g/dL (31-37) Red Cell Distribution Width 13.7 % (11.5-14.5) Platelet Count 218 x10^3/uL (140-400) Prothrombin Time 17.5 SEC (11.7-14.0) Prothromb Time International Ratio 1.5 (0.8-1.1) Heparin Anti-Xa Act, Unfractionated 0.26 IU/mL (0.30-0.70) 0.71 IU/mL (0.30-0.70) Magnesium Level 1.0 mg/dL (1.8-2.4) Results All relevant outside records, renal labs, imaging studies, telemetry/EKG's were reviewed. RUBEN RUCKER MD Dec 29, 2018 14:11
[2018-12-29 14:27] VITALS: BP 139/78
--- NOTE | 2018-12-29 14:38 | NUR ---
Pharmacy Warfarin Dosing Note S:Pharmacy consulted to assist with anticoagulation therapy started with target INR: 2 -3 O:LEYDI TRUJILLO is a 83 year old F with Atrial Fibrillation LABS: Last INR: 1.5 Last HGB: 8.9 Last HCT: 26.8 Last PLT: 218 Last dose of 7.5 mg given on 12/28/18 at 1600 Previous Regimen: 3.5 MG /D Vitamin K given: N Drug Interaction Changes: Ongoing Drug Interactions: A:INR of 1.5 is below desired range. Target range for this patient is: 2 -3 P: Warfarin dose: 7.5 mg Today at 1600 Bridge Therapy: Heparin Therapeutic CONT Next INR due tomorrow Pharmacy anticoagulation service will continue to follow. OSMAR REHMAN [facility], 12/29/18 [id number]
[2018-12-29] MEDS: ANTI-COAG MONITOR BY PHARMACY. MC PRN (15:00)
[2018-12-29] MEDS ORDERED: WARFARIN 7.5 MG TABLET. PO ONE (16:00)
--- NOTE | 2018-12-29 16:07 | PDOC ---
G I PROGRESS NOTE Subjective No GI complaints. Eating and stooling w/o issues. Leg feels OK. Physical Exam Lungs clear. RRR Abdomen soft, not tender nor distended. Review of Relevant I have reviewed the following items rubia (where applicable) has been applied. Labs Laboratory Tests Test 12/28/18 06:15 12/29/18 05:00 12/29/18 12:05 Prothrombin Time 16.4 SEC (11.7-14.0) 17.5 SEC (11.7-14.0) Prothromb Time International Ratio 1.4 (0.8-1.1) 1.5 (0.8-1.1) Heparin Anti-Xa Act, Unfractionated 0.40 IU/mL (0.30-0.70) 0.26 IU/mL (0.30-0.70) 0.71 IU/mL (0.30-0.70) Sodium Level 143 mmol/L (136-145) Potassium Level 3.8 mmol/L (3.5-5.1) Chloride Level 111 mmol/L (98-107) Carbon Dioxide Level 22 mmol/L (21-32) Anion Gap 10 (6-14) Blood Urea Nitrogen 20 mg/dL (7-20) Creatinine 1.7 mg/dL (0.6-1.0) Estimated GFR (Cockcroft-Gault) 34.9 Glucose Level 91 mg/dL (70-99) Calcium Level 8.4 mg/dL (8.5-10.1) Magnesium Level 0.9 mg/dL (1.8-2.4) 1.0 mg/dL (1.8-2.4) White Blood Count 7.9 x10^3/uL (4.0-11.0) Red Blood Count 2.86 x10^6/uL (3.50-5.40) Hemoglobin 8.9 g/dL (12.0-15.5) Hematocrit 26.8 % (36.0-47.0) Mean Corpuscular Volume 93 fL (79-100) Mean Corpuscular Hemoglobin 31 pg (25-35) Mean Corpuscular Hemoglobin Concent 33 g/dL (31-37) Red Cell Distribution Width 13.7 % (11.5-14.5) Platelet Count 218 x10^3/uL (140-400) Laboratory Tests Test 12/29/18 05:00 12/29/18 12:05 White Blood Count 7.9 x10^3/uL (4.0-11.0) Red Blood Count 2.86 x10^6/uL (3.50-5.40) Hemoglobin 8.9 g/dL (12.0-15.5) Hematocrit 26.8 % (36.0-47.0) Mean Corpuscular Volume 93 fL (79-100) Mean Corpuscular Hemoglobin 31 pg (25-35) Mean Corpuscular Hemoglobin Concent 33 g/dL (31-37) Red Cell Distribution Width 13.7 % (11.5-14.5) Platelet Count 218 x10^3/uL (140-400) Prothrombin Time 17.5 SEC (11.7-14.0) Prothromb Time International Ratio 1.5 (0.8-1.1) Heparin Anti-Xa Act, Unfractionated 0.26 IU/mL (0.30-0.70) 0.71 IU/mL (0.30-0.70) Magnesium Level 1.0 mg/dL (1.8-2.4) Microbiology 12/18/18 Urine Culture - Final, Complete 12/18/18 Urine Culture Result 1 (ALEJANDRINA) - Final, Complete Vitals/I & O Vital Sign - Last 24 Hours 12/28/18 12/28/18 12/28/18 12/29/18 19:00 19:50 23:00 03:00 Temp 98.2 98.8 98.0 98.2 98.8 98.0 Pulse 71 82 81 Resp 24 28 24 B/P (MAP) 125/65 (85) 166/72 (103) 146/67 (93) Pulse Ox 97 97 97 O2 Delivery Room Air Room Air Room Air Room Air 12/29/18 12/29/18 12/29/18 12/29/18 07:23 08:00 08:18 08:18 Temp 98.2 98.2 Pulse 71 71 71 Resp 24 B/P (MAP) 151/92 (111) 151/92 151/92 Pulse Ox 99 O2 Delivery Room Air Room Air 12/29/18 12/29/18 12/29/18 08:18 10:24 14:27 Temp 97.3 97.9 97.3 97.9 Pulse 71 92 72 Resp 24 24 B/P (MAP) 151/92 125/78 (94) 139/78 (98) Pulse Ox 100 100 O2 Delivery Room Air Room Air Intake and Output 12/28/18 12/28/18 12/29/18 15:00 23:00 07:00 Intake Total 480 ml 580 ml Output Total 150 ml 250 ml 200 ml Balance 330 ml 330 ml -200 ml Problem List Problems Medical Problems: (1) Epigastric pain Status: Acute (2) Epigastric pain Status: Acute (3) Nausea Status: Acute (4) Nausea Status: Acute (5) Small bowel obstruction Status: Acute Assessment SBO, resolved. LE ischemia, post-thrombectomy. Plan of Care: Continue current Tx, Mgmt Plan of Care Note Home at your discretion from GI standpoint. LAURA HIDALGO MD Dec 29, 2018 16:07
[2018-12-29 19:00] VITALS: BP 131/68
[2018-12-29] MEDS: ATORVASTATIN CALCIUM 20 MG TABLET PO SCH (21:58)
[2018-12-29 23:00] VITALS: BP 148/71
--- NOTE | 2018-12-30 00:12 | PN ---
DATE: 12/29/2018 SUBJECTIVE: The patient is sitting comfortably in her chair, in no apparent respiratory distress. On questioning her, she denied any complaints, in particular, no nausea, no vomiting, no abdominal pain. She has a bowel movement, has been up and about with physical therapy. Her INR is still subtherapeutic at 1.5. She has also hypomagnesemia for which we started her on magnesium sulfate. PHYSICAL EXAMINATION: GENERAL: When I examined her this morning, she was pale, but no jaundice, cyanosis or thyromegaly. No jugular venous distention. Mild bilateral lower limb edema. VITAL SIGNS: Her heart rate was 92, blood pressure was 125/78, temperature was 97.3, respiratory rate 24 and oxygen saturation was 100%. HEAD, EYES, EARS, NOSE AND THROAT: Showed normocephalic, atraumatic. NECK: Supple. HEART: Showed normal first and second heart sounds. No gallop or murmurs. CHEST: Clear to auscultation. No crepitation or rhonchi. ABDOMEN: Distended, soft, nontender. NEUROLOGIC: She was awake, alert, responding appropriately. All cranial nerves intact. She moves extremities without difficulty. Her intake over the last 24 hours was 640, output was 800. LABORATORY DATA: As of this morning, her prothrombin time was 17.5, INR 1.5. White cell count was 7900, hemoglobin 8.9, hematocrit 26.8, MCV 93, and platelet count of 218,000. Her chemistry showed a serum sodium 143, potassium 3.8, chloride 111, bicarbonate 22, anion gap of 10, BUN 20, creatinine 1.7, estimated GFR was 35 mL per minute. Her glucose was 91, calcium was 8.4, magnesium was 1 mEq. ASSESSMENT: 1. Partial small-bowel obstruction, resolved. The patient is now on regular diet and no nausea, no vomiting. Has bowel movement. 2. Acute kidney injury on top of chronic kidney disease stage 3. Her baseline creatinine is 1.7. 3. Hypertension, seems to be much better controlled. 4. Hyperlipidemia. 5. Chronic atrial fibrillation, rate controlled. Continue to be on heparin and Coumadin as the INR is still subtherapeutic. 6. Osteoarthritis of left knee, treated with steroid injection. 7. Chronic gout. 8. History of left nephrectomy. 9. Left popliteal and left iliac thromboembolectomy with left iliac artery angioplasty and stent deployment. PLAN: To continue with Coumadin with target INR of 2-3. We will discontinue heparin once the INR is equal to more than 2. Continue with PT, OT. Continue with regular diet. She will be discharged home once the INR is within therapeutic range. JOSHUA HATCH MD DR: VIRIDIANA/angus JOB#: [id number] / [id number]
[2018-12-30 03:00] VITALS: BP 132/73
[2018-12-30 03:08] LABS: PROTHROMBIN TIME PATIENT 18.3 SEC (11.7-14.0)
[2018-12-30 03:49] LABS: BASO % 0 % (0-3); EOS # 0.1 x10^3/uL (0.0-0.7); EOS % 1 % (0-3); HEMOGLOBIN 9.4 g/dL (12.0-15.5); LYMPH # 1.4 x10^3/uL (1.0-4.8); LYMPH % 18 % (24-48); MEAN CORPUSCULAR HEMOGLOBIN 31 pg (25-35); MEAN CORPUSCULAR HGB CONC 32 g/dL (31-37); MEAN CORPUSCULAR VOLUME 95 fL (79-100); MONO # 0.6 x10^3/uL (0.0-1.1); MONO % 8 % (0-9); NEUT # 5.6 x10^3/uL (1.8-7.7); NEUT % 73 % (31-73); PLATELET COUNT 238 x10^3/uL (140-400); RED BLOOD COUNT 3.06 x10^6/uL (3.50-5.40); WHITE BLOOD COUNT 7.7 x10^3/uL (4.0-11.0)
[2018-12-30 04:05] LABS: CALCIUM 8.7 mg/dL (8.5-10.1); CREATININE 1.7 mg/dL (0.6-1.0); GFR 34.9; MAGNESIUM 1.1 mg/dL (1.8-2.4); POTASSIUM 3.8 mmol/L (3.5-5.1)
[2018-12-30] MEDS: PANTOPRAZOLE 40 MG TABLET.DR. PO SCH ×2 (05:58→08:28)
[2018-12-30 06:52] LABS: CHOLESTEROL/HDL RATIO 2.9
[2018-12-30 07:12] VITALS: BP 134/62
[2018-12-30] MEDS: ANTI-COAG MONITOR BY PHARMACY. MC PRN (08:13)
--- NOTE | 2018-12-30 08:17 | NUR ---
Pharmacy Warfarin Dosing Note S:Pharmacy consulted to assist with anticoagulation therapy started with target INR: 2 -3 O:LEYDI TRUJILLO is a 83 year old F with Atrial Fibrillation LABS: Last INR: 1.6 Last HGB: 9.4 Last HCT: 29 Last PLT: 238 Last dose of 7.5 mg given on 12/29/18 at 1603 Previous Regimen: 3.5 MG /D Vitamin K given: N Drug Interaction Changes: Ongoing Drug Interactions: A:INR of 1.6 is below desired range. Target range for this patient is: 2 -3 P: Warfarin dose: 9MG Today at 1600 Bridge Therapy: Heparin Therapeutic CONT Next INR due IN AM Pharmacy anticoagulation service will continue to follow. BRIGETTE GODINEZ [facility], 12/30/18 [id number]
[2018-12-30] MEDS: FEBUXOSTAT 40 MG TABLET PO SCH (08:27)
[2018-12-30] MEDS: amLODIPine BESYLATE 10 MG TABLET PO SCH (08:28)
[2018-12-30] MEDS: LACTOBACILLUS RHAMNOSUS GG 1 CAPSULE. PO SCH ×2 (08:28→20:29)
[2018-12-30] MEDS: CLOPIDOGREL BISULFATE 75 MG TABLET PO SCH (08:28)
[2018-12-30] MEDS: MAGNESIUM OXIDE 400 MG TABLET PO SCH ×3 (08:28→20:29)
[2018-12-30] MEDS: LOSARTAN POTASSIUM 50 MG TABLET. PO SCH (08:28)
[2018-12-30] MEDS: METOPROLOL SUCC 24HR ER 25 MG TAB.ER.24H. PO SCH (08:29)
[2018-12-30] MEDS: DICLOFENAC SODIUM 1% TOPICAL GEL 100GM TUBE. TP SCH ×4 (08:29→20:30)
[2018-12-30] MEDS ORDERED: MAGNESIUM SULFATE 4GM 100 ML IV ONE (09:00)
[2018-12-30 10:28] VITALS: BP 140/71
--- NOTE | 2018-12-30 11:16 | PDOC ---
PROGRESS NOTES Subjective Subjective No new complaints except eager to go home. Objective Objective Vital Signs Date Time Temp Pulse Resp B/P (MAP) Pulse Ox O2 Delivery O2 Flow Rate FiO2 12/30/18 10:28 97.8 79 16 140/71 (94) 98 Room Air 97.8 12/30/18 08:00 4.0 Intake and Output 12/30/18 07:00 Intake Total 810 ml Output Total 300 ml Balance 510 ml Intake Oral 810 ml Output Urine Total 300 ml # Voids 2 # Bowel Movements 1 Physical Exam Physical Exam She is alert,supine in bed and comfortable but is independent with her mobility at roller walker level. Assessment Assessment Problems Medical Problems: (1) Epigastric pain Status: Acute (2) Epigastric pain Status: Acute (3) Nausea Status: Acute (4) Nausea Status: Acute (5) Small bowel obstruction Status: Acute Plan Plan of Alf when medically stable. Comment Review of Relevant I have reviewed the following items rubia (where applicable) has been applied. Labs Laboratory Tests Test 12/29/18 05:00 12/29/18 12:05 12/29/18 18:15 12/30/18 01:00 White Blood Count 7.9 x10^3/uL (4.0-11.0) Red Blood Count 2.86 x10^6/uL (3.50-5.40) Hemoglobin 8.9 g/dL (12.0-15.5) Hematocrit 26.8 % (36.0-47.0) Mean Corpuscular Volume 93 fL (79-100) Mean Corpuscular Hemoglobin 31 pg (25-35) Mean Corpuscular Hemoglobin Concent 33 g/dL (31-37) Red Cell Distribution Width 13.7 % (11.5-14.5) Platelet Count 218 x10^3/uL (140-400) Prothrombin Time 17.5 SEC (11.7-14.0) 18.3 SEC (11.7-14.0) Prothromb Time International Ratio 1.5 (0.8-1.1) 1.6 (0.8-1.1) Heparin Anti-Xa Act, Unfractionated 0.26 IU/mL (0.30-0.70) 0.71 IU/mL (0.30-0.70) 0.69 IU/mL (0.30-0.70) Magnesium Level 1.0 mg/dL (1.8-2.4) Test 12/30/18 01:05 12/30/18 03:30 12/30/18 08:00 Heparin Anti-Xa Act, Unfractionated 0.63 IU/mL (0.30-0.70) 0.56 IU/mL (0.30-0.70) White Blood Count 7.7 x10^3/uL (4.0-11.0) Red Blood Count 3.06 x10^6/uL (3.50-5.40) Hemoglobin 9.4 g/dL (12.0-15.5) Hematocrit 29.0 % (36.0-47.0) Mean Corpuscular Volume 95 fL (79-100) Mean Corpuscular Hemoglobin 31 pg (25-35) Mean Corpuscular Hemoglobin Concent 32 g/dL (31-37) Red Cell Distribution Width 14.0 % (11.5-14.5) Platelet Count 238 x10^3/uL (140-400) Neutrophils (%) (Auto) 73 % (31-73) Lymphocytes (%) (Auto) 18 % (24-48) Monocytes (%) (Auto) 8 % (0-9) Eosinophils (%) (Auto) 1 % (0-3) Basophils (%) (Auto) 0 % (0-3) Neutrophils # (Auto) 5.6 x10^3/uL (1.8-7.7) Lymphocytes # (Auto) 1.4 x10^3/uL (1.0-4.8) Monocytes # (Auto) 0.6 x10^3/uL (0.0-1.1) Eosinophils # (Auto) 0.1 x10^3/uL (0.0-0.7) Basophils # (Auto) 0.0 x10^3/uL (0.0-0.2) Sodium Level 143 mmol/L (136-145) Potassium Level 3.8 mmol/L (3.5-5.1) Chloride Level 111 mmol/L (98-107) Carbon Dioxide Level 24 mmol/L (21-32) Anion Gap 8 (6-14) Blood Urea Nitrogen 23 mg/dL (7-20) Creatinine 1.7 mg/dL (0.6-1.0) Estimated GFR (Cockcroft-Gault) 34.9 Glucose Level 94 mg/dL (70-99) Calcium Level 8.7 mg/dL (8.5-10.1) Magnesium Level 1.1 mg/dL (1.8-2.4) Triglycerides Level 65 mg/dL (0-150) Cholesterol Level 98 mg/dL (0-200) LDL Cholesterol, Calculated 51 mg/dL (0-100) VLDL Cholesterol, Calculated 13 mg/dL (0-40) Non-HDL Cholesterol Calculated 64 mg/dL (0-129) HDL Cholesterol 34 mg/dL (40-60) Cholesterol/HDL Ratio 2.9 Laboratory Tests Test 12/29/18 12:05 12/29/18 18:15 12/30/18 01:00 12/30/18 01:05 Heparin Anti-Xa Act, Unfractionated 0.71 IU/mL (0.30-0.70) 0.69 IU/mL (0.30-0.70) 0.63 IU/mL (0.30-0.70) Prothrombin Time 18.3 SEC (11.7-14.0) Prothromb Time International Ratio 1.6 (0.8-1.1) Test 12/30/18 03:30 12/30/18 08:00 White Blood Count 7.7 x10^3/uL (4.0-11.0) Red Blood Count 3.06 x10^6/uL (3.50-5.40) Hemoglobin 9.4 g/dL (12.0-15.5) Hematocrit 29.0 % (36.0-47.0) Mean Corpuscular Volume 95 fL (79-100) Mean Corpuscular Hemoglobin 31 pg (25-35) Mean Corpuscular Hemoglobin Concent 32 g/dL (31-37) Red Cell Distribution Width 14.0 % (11.5-14.5) Platelet Count 238 x10^3/uL (140-400) Neutrophils (%) (Auto) 73 % (31-73) Lymphocytes (%) (Auto) 18 % (24-48) Monocytes (%) (Auto) 8 % (0-9) Eosinophils (%) (Auto) 1 % (0-3) Basophils (%) (Auto) 0 % (0-3) Neutrophils # (Auto) 5.6 x10^3/uL (1.8-7.7) Lymphocytes # (Auto) 1.4 x10^3/uL (1.0-4.8) Monocytes # (Auto) 0.6 x10^3/uL (0.0-1.1) Eosinophils # (Auto) 0.1 x10^3/uL (0.0-0.7) Basophils # (Auto) 0.0 x10^3/uL (0.0-0.2) Sodium Level 143 mmol/L (136-145) Potassium Level 3.8 mmol/L (3.5-5.1) Chloride Level 111 mmol/L (98-107) Carbon Dioxide Level 24 mmol/L (21-32) Anion Gap 8 (6-14) Blood Urea Nitrogen 23 mg/dL (7-20) Creatinine 1.7 mg/dL (0.6-1.0) Estimated GFR (Cockcroft-Gault) 34.9 Glucose Level 94 mg/dL (70-99) Calcium Level 8.7 mg/dL (8.5-10.1) Magnesium Level 1.1 mg/dL (1.8-2.4) Triglycerides Level 65 mg/dL (0-150) Cholesterol Level 98 mg/dL (0-200) LDL Cholesterol, Calculated 51 mg/dL (0-100) VLDL Cholesterol, Calculated 13 mg/dL (0-40) Non-HDL Cholesterol Calculated 64 mg/dL (0-129) HDL Cholesterol 34 mg/dL (40-60) Cholesterol/HDL Ratio 2.9 Heparin Anti-Xa Act, Unfractionated 0.56 IU/mL (0.30-0.70) Microbiology 12/18/18 Urine Culture - Final, Complete 12/18/18 Urine Culture Result 1 (ALEJANDRINA) - Final, Complete Medications Current Medications Ondansetron HCl (Zofran) 4 mg 1X ONCE IM ; Start 12/16/18 at 09:30; Stop 12/16/18 at 09:31; Status DC Fentanyl Citrate (Fentanyl 2ml Vial) 75 mcg 1X ONCE IVP Last administered on 12/16/18at 09:46; Start 12/16/18 at 09:45; Stop 12/16/18 at 09:46; Status DC Ondansetron HCl (Zofran) 4 mg 1X ONCE IVP Last administered on 12/16/18at 0 9:51; Start 12/16/18 at 10:00; Stop 12/16/18 at 10:01; Status DC Sodium Chloride 1,000 ml @ 1,000 mls/hr 1X ONCE IV Last administered on 12/16/18at 10:40; Start 12/16/18 at 10:15; Stop 12/16/18 at 11:14; Status DC Clonidine HCl (Catapres) 0.1 mg 1X ONCE PO Last administered on 12/16/18at 15:12; Start 12/16/18 at 14:15; Stop 12/16/18 at 14:16; Status DC Fentanyl Citrate (Fentanyl 2ml Vial) 75 mcg 1X ONCE IVP ; Start 12/16/18 at 15:15; Stop 12/16/18 at 15:16; Status DC Ondansetron HCl (Zofran) 4 mg PRN Q8HRS PRN IV NAUSEA/VOMITING; Start 12/16/18 at 15:15; Stop 12/16/18 at 17:10; Status DC Fentanyl Citrate (Fentanyl 2ml Vial) 50 mcg PRN Q1HR PRN IV PAIN Last administered on 12/17/18at 07:28; Start 12/16/18 at 15:15; Stop 12/17/18 at 15 :14; Status DC Sodium Chloride 1,000 ml @ 125 mls/hr Q8H IV ; Start 12/16/18 at 15:10; Stop 12/16/18 at 17:26; Status DC Acetaminophen (Tylenol) 650 mg PRN Q4HRS PRN PO FEVER; Start 12/16/18 at 15:15; Stop 12/17/18 at 15:14; Status DC Potassium Chloride/Dextrose/ Sod Cl 1,000 ml @ 100 mls/hr Q10H IV Last administered on 12/18/18at 01:27; Start 12/16/18 at 17:00; Stop 12/18/18 at 10:34; Status DC Ondansetron HCl (Zofran) 4 mg PRN Q6HRS PRN IVP NAUSEA/VOMITING Last administered on 12/18/18at 21:17; Start 12/16/18 at 17:00 Hydralazine HCl (Apresoline Inj) 10 mg PRN Q6HRS PRN IVP ELEVATED BP, SEE COMMENTS Last administered on 12/28/18at 11:08; Start 12/17/18 at 01:00 Enoxaparin Sodium (Lovenox 100mg Syringe) 100 mg DAILY SQ Last administered on 12/17/18at 12:49; Start 12/17/18 at 10:30; Stop 12/19/18 at 09:14; Status DC Info (Anti-Coagulation Monitoring By Pharmacy) 1 each PRN DAILY PRN MC SEE COMMENTS Last administered on 12/30/18at 08:13; Start 12/17/18 at 10:15 Pantoprazole Sodium (PROTONIX VIAL for IV PUSH) 40 mg DAILYAC IVP Last administered on 12/25/18at 06:23; Start 12/17/18 at 10:30; Stop 12/25/18 at 10:27; Status DC Acetaminophen (Tylenol Supp) 650 mg PRN Q6HRS PRN [place] HEADACHE / TEMP; Start 12/17/18 at 10:00; Stop 12/25/18 at 10:27; Status DC Fentanyl Citrate (Fentanyl 2ml Vial) 50 mcg PRN Q4HRS PRN IVP PAIN Last administered on 12/23/18at 22:01; Start 12/17/18 at 10:00; Stop 12/27/18 at 09:54; Status DC Insulin Human Lispro (HumaLOG) 0-6 UNITS BG 300-399... Q6HRS SQ ; Start 12/17/18 at 12:00; Stop 12/17/18 at 10:24; Status DC Ceftriaxone Sodium (Rocephin) 1 gm Q24H IVP Last administered on 12/21/18at 12:42; Start 12/18/18 at 11:00; Stop 12/22/18 at 10:07; Status DC Dextrose/Sodium Chloride 1,000 ml @ 150 mls/hr Q6H40M IV Last administered on 12/20/18at 03:00; Start 12/18/18 at 10:30; Stop 12/20/18 at 09:52; Status DC Bupivacaine HCl/ Epinephrine Bitart (Sensorcain-Epi 0.5%-1:251521 Mpf) 30 ml 1X ONCE INJ ; Start 12/18/18 at 15:00; Stop 12/18/18 at 15:01; Status Cancel Bupivacaine HCl/ Epinephrine Bitart (Sensorcain-Epi 0.5%-1:574525 Mpf) 30 ml 1X ONCE INJ Last administered on 12/19/18at 06:00; Start 12/19/18 at 06:00; Stop 12/19/18 at 06:01; Status DC Ondansetron HCl (Zofran) 4 mg PRN Q6HRS PRN IV NAUSEA/VOMITING; Start 12/19/18 at 07:00; Stop 12/20/18 at 06:59; Status DC Fentanyl Citrate (Fentanyl 2ml Vial) 25 mcg PRN Q5MIN PRN IV MILD PAIN 1-3; Start 12/19/18 at 07:00; Stop 12/20/18 at 06:59; Status DC Fentanyl Citrate (Fentanyl 2ml Vial) 50 mcg PRN Q5MIN PRN IV MODERATE TO SEVERE PAIN; Start 12/19/18 at 07:00; Stop 12/20/18 at 06:59; Status DC Morphine Sulfate (Morphine Sulfate) 1 mg PRN Q10MIN PRN IV SEVERE PAIN 7-10; Start 12/19/18 at 07:00; Stop 12/20/18 at 06:59; Status DC Ringer's Solution 1,000 ml @ 30 mls/hr Q24H IV ; Start 12/19/18 at 07:00; Stop 12/19/18 at 18:59; Status DC Lidocaine HCl (Xylocaine-Mpf 1% 2ml Vial) 2 ml PRN 1X PRN ID PRIOR TO IV START; Start 12/19/18 at 07:00; Stop 12/20/18 at 06:59; Status DC Hydromorphone HCl (Dilaudid) 0.5 mg PRN Q10MIN PRN IV SEV PAIN, Second choice; Start 12/19/18 at 07:00; Stop 12/20/18 at 06:59; Status DC Prochlorperazine Edisylate (Compazine) 5 mg PACU PRN PRN IV NAUSEA, MRX1; Start 12/19/18 at 07:00; Stop 12/20/18 at 06:59; Status DC Phytonadione 10 mg/Dextrose 51 ml @ 102 mls/hr 1X ONCE IV Last administered on 12/19/18at 10:37; Start 12/19/18 at 09:15; Stop 12/19/18 at 09:44; Status DC Potassium Chloride/Dextrose/ Sod Cl 1,000 ml @ 150 mls/hr Q6H40M IV Last administered on 12/21/18at 03:26; Start 12/20/18 at 11:00; Stop 12/21/18 at 11:06; Status DC Lidocaine HCl (Lidocaine Pf 2% Vial) 5 ml STK-MED ONCE .ROUTE ; Start 12/20/18 at 11:14; Stop 12/20/18 at 11:14; Status DC Neostigmine Methylsulfate (Bloxiverz) 10 mg STK-MED ONCE .ROUTE ; Start 12/20/18 at 11:16; Stop 12/20/18 at 11:17; Status DC Rocuronium Belf[place] (Zemuron) 50 mg STK-MED ONCE .ROUTE ; Start 12/20/18 at 11:17; Stop 12/20/18 at 11:17; Status DC Fentanyl Citrate (Fentanyl 2ml Vial) 100 mcg STK-MED ONCE .ROUTE ; Start 12/20/18 at 11:17; Stop 12/20/18 at 11:18; Status DC Midazolam HCl (Versed) 2 mg STK-MED ONCE .ROUTE ; Start 12/20/18 at 11:17; Stop 12/20/18 at 11:18; Status DC Glycopyrrolate (Robinul) 1 mg STK-MED ONCE .ROUTE ; Start 12/20/18 at 11:17; Stop 12/20/18 at 11:18; Status DC Succinylcholine Chloride (Anectine) 200 mg STK-MED ONCE .ROUTE ; Start 12/20/18 at 11:21; Stop 12/20/18 at 11:21; Status DC Diclofenac Sodium (Voltaren) 1 marilyn QID TP Last administered on 12/30/18at 08:29; Start 12/21/18 at 13:00 Dextrose/Sodium Chloride 1,000 ml @ 125 mls/hr Q8H IV Last administered on 12/23/18at 03:30; Start 12/21/18 at 11:15; Stop 12/23/18 at 11:59; Status DC Methylprednisolone Acetate (DEPO-Medrol 40MG VIAL) 40 mg 1X ONCE IM Last administered on 12/21/18at 12:00; Start 12/21/18 at 12:00; Stop 12/21/18 at 12:01; Status DC Bupivacaine HCl (Sensorcaine-Mpf 0.25%) 10 ml 1X ONCE IJ Last administered on 12/21/18at 12:00; Start 12/21/18 at 12:00; Stop 12/21/18 at 12:01; Status DC Piperacillin Sod/ Tazobactam Sod 3.375 gm/Sodium Chloride 50 ml @ 100 mls/hr Q6HRS IV Last administered on 12/26/18at 05:37; Start 12/22/18 at 12:00; Stop 12/26/18 at 08:41; Status DC Heparin Sodium/ Dextrose 500 ml @ 32 mls/min CONT PRN IV SEE PROTOCOL; Start 12/22/18 at 14:30; Stop 12/22/18 at 20:12; Status DC Heparin Sodium (Porcine) (Heparin Sodium) 3,050 unit PRN Q6HRS PRN IV FOR UFH LEVEL LESS THAN 0.2; Start 12/22/18 at 14:30; Stop 12/22/18 at 20:10; Status DC Heparin Sodium (Porcine) (Heparin Sodium) 1,550 unit PRN Q6HRS PRN IV FOR UFH LEVEL 0.2 - 0.29; Start 12/22/18 at 14:30; Stop 12/22/18 at 20:10; Status DC Heparin Sodium (Porcine) (Heparin Sodium) 5,000 unit Q8HRS SQ Last administered on 12/22/18at 22:11; Start 12/22/18 at 22:00; Stop 12/23/18 at 06:10; Status DC Fentanyl Citrate (Fentanyl 2ml Vial) 25 mcg 1X ONCE IVP Last administered on 12/23/18at 03:21; Start 12/23/18 at 03:30; Stop 12/23/18 at 03:31; Status DC Heparin Sodium (Porcine) (Heparin Sodium) 5,000 unit 1X STAT IV ; Start 12/23/18 at 05:58; Stop 12/23/18 at 05:59; Status UNV Heparin Sodium/ Dextrose 500 ml @ 0 mls/hr CONT PRN IV SEE I/O RECORD; Start 12/23/18 at 06:00; Status UNV Heparin Sodium (Porcine) (Heparin Sodium) 5,000 unit 1X ONCE IV Last administered on 12/23/18at 06:16; Start 12/23/18 at 06:30; Stop 12/23/18 at 06:31; Status DC Heparin Sodium/ Dextrose 500 ml @ 24 mls/hr CONT PRN PRN IV DVT Last administered on 12/28/18at 16:56; Start 12/23/18 at 06:30 Heparin Sodium (Porcine) (Heparin Sodium) 3,050 unit PRN Q6HRS PRN IV FOR UFH LEVEL LESS THAN 0.2 Last administered on 12/27/18at 00:08; Start 12/23/18 at 06:15 Heparin Sodium (Porcine) (Heparin Sodium) 1,550 unit PRN Q6HRS PRN IV FOR UFH LEVEL 0.2 - 0.29 Last administered on 12/29/18at 06:36; Start 12/23/18 at 06:15 Propofol 20 ml @ As Directed STK-MED ONCE IV ; Start 12/23/18 at 06:28; Stop 12/23/18 at 06:28; Status DC Lidocaine HCl (Lidocaine Pf 2% Vial) 5 ml STK-MED ONCE .ROUTE ; Start 12/23/18 at 06:28; Stop 12/23/18 at 06:28; Status DC Fentanyl Citrate (Fentanyl 2ml Vial) 100 mcg STK-MED ONCE .ROUTE ; Start 12/23/18 at 06:28; Stop 12/23/18 at 06:28; Status DC Rocuronium [place] (Zemuron) 50 mg STK-MED ONCE .ROUTE ; Start 12/23/18 at 06:28; Stop 12/23/18 at 06:28; Status DC Heparin Sodium (Porcine) 5000 unit/Sodium Chloride 505 ml @ 505 mls/hr 1X ONCE IRR ; Start 12/23/18 at 07:30; Stop 12/23/18 at 08:29; Status DC Cefazolin Sodium 1 gm/Sodium Chloride 500 ml @ 500 mls/hr 1X ONCE IRR Last administered on 12/23/18at 08:33; Start 12/23/18 at 07:30; Stop 12/23/18 at 08:29; Status DC Lidocaine HCl 16 ml/Sodium Bicarbonate 4 meq/ Miscellaneous 20 ml @ 20 mls/hr 1X ONCE ID Last administered on 12/23/18at 08:33; Start 12/23/18 at 07:30; Stop 12/23/18 at 08:29; Status DC Ondansetron HCl (Zofran) 4 mg PRN Q6HRS PRN IV NAUSEA/VOMITING; Start 12/23/18 at 07:30; Stop 12/24/18 at 07:29; Status DC Fentanyl Citrate (Fentanyl 2ml Vial) 25 mcg PRN Q5MIN PRN IV MILD PAIN 1-3; Start 12/23/18 at 07:30; Stop 12/24/18 at 07:29; Status DC Fentanyl Citrate (Fentanyl 2ml Vial) 50 mcg PRN Q5MIN PRN IV MODERATE TO SEVERE PAIN; Start 12/23/18 at 07:30; Stop 12/24/18 at 07:29; Status DC Morphine Sulfate (Morphine Sulfate) 1 mg PRN Q10MIN PRN IV SEVERE PAIN 7-10; Start 12/23/18 at 07:30; Stop 12/24/18 at 07:29; Status DC Ringer's Solution 1,000 ml @ 30 mls/hr Q24H IV ; Start 12/23/18 at 07:21; Stop 12/23/18 at 19:20; Status DC Lidocaine HCl (Xylocaine-Mpf 1% 2ml Vial) 2 ml PRN 1X PRN ID PRIOR TO IV START; Start 12/23/18 at 07:30; Stop 12/24/18 at 07:29; Status DC Hydromorphone HCl (Dilaudid) 0.5 mg PRN Q10MIN PRN IV SEV PAIN, Second choice; Start 12/23/18 at 07:30; Stop 12/24/18 at 07:29; Status DC Prochlorperazine Edisylate (Compazine) 5 mg PACU PRN PRN IV NAUSEA, MRX1; Start 12/23/18 at 07:30; Stop 12/24/18 at 07:29; Status DC Succinylcholine Chloride (Anectine) 200 mg STK-MED ONCE .ROUTE ; Start 12/23/18 at 07:45; Stop 12/23/18 at 07:46; Status DC Fentanyl Citrate (Fentanyl 2ml Vial) 100 mcg STK-MED ONCE .ROUTE ; Start 12/23/18 at 08:24; Stop 12/23/18 at 08:24; Status DC Labetalol HCl (Normodyne Iv Push) 10 mg 1X ONCE IVP ; Start 12/23/18 at 08:30; Stop 12/23/18 at 08:31; Status DC Phenylephrine HCl (Cheko-Synephrine Inj) 10 mg STK-MED ONCE .ROUTE ; Start 12/23/18 at 08:48; Stop 12/23/18 at 08:48; Status DC Iohexol (Omnipaque 300 Mg/ml) 50 ml STK-MED ONCE .ROUTE Last administered on 12/23/18at 08:33; Start 12/23/18 at 09:05; Stop 12/23/18 at 09:05; Status DC Hydrocortisone Sodium Succinate (Solu-CORTEF) 100 mg STK-MED ONCE .ROUTE ; Start 12/23/18 at 09:06; Stop 12/23/18 at 09:06; Status DC Dexamethasone Sodium Phosphate (Decadron) 4 mg STK-MED ONCE .ROUTE ; Start 12/23/18 at 09:06; Stop 12/23/18 at 09:06; Status DC Ondansetron HCl (Zofran) 4 mg STK-MED ONCE .ROUTE ; Start 12/23/18 at 09:06; Stop 12/23/18 at 09:06; Status DC Famotidine (Pepcid Vial) 20 mg STK-MED ONCE .ROUTE ; Start 12/23/18 at 09:06; Stop 12/23/18 at 09:07; Status DC Neostigmine Methylsulfate (Neostigmine Methylsulfate) 5 mg STK-MED ONCE .ROUTE ; Start 12/23/18 at 09:10; Stop 12/23/18 at 09:10; Status DC Glycopyrrolate (Robinul) 1 mg STK-MED ONCE .ROUTE ; Start 12/23/18 at 09:10; Stop 12/23/18 at 09:11; Status DC Heparin Sodium (Porcine) (Heparin Sodium) 10,000 unit STK-MED ONCE .ROUTE ; Start 12/23/18 at 09:23; Stop 12/23/18 at 09:23; Status DC Iohexol (Omnipaque 300 Mg/ml) 50 ml STK-MED ONCE .ROUTE Last administered on 12/23/18at 08:33; Start 12/23/18 at 09:28; Stop 12/23/18 at 09:28; Status DC Sevoflurane (Ultane) 90 ml STK-MED ONCE IH ; Start 12/23/18 at 09:44; Stop 12/23/18 at 09:44; Status DC Hydrocortisone Sodium Succinate (Solu-CORTEF) 100 mg 1X ONCE IV ; Start 12/23/18 at 11:00; Stop 12/23/18 at 11:15; Status DC Labetalol HCl (Normodyne Iv Push) 5 mg PRN Q10MIN PRN IVP HYPERTENSION Last administered on 12/23/18at 11:24; Start 12/23/18 at 11:30; Stop 12/25/18 at 10:27; Status DC Potassium Chloride/Dextrose/ Sod Cl 1,000 ml @ 125 mls/hr Q8H IV Last administered on 12/24/18at 08:24; Start 12/23/18 at 12:00; Stop 12/24/18 at 09:51; Status DC Potassium Chloride/Dextrose/ Sod Cl 1,000 ml @ 125 mls/hr Q8H IV Last administered on 12/25/18at 06:44; Start 12/24/18 at 10:30; Stop 12/25/18 at 10:27; Status DC Clopidogrel Bisulfate (Plavix) 75 mg 1X ONCE PO ; Start 12/25/18 at 09:15; Stop 12/25/18 at 09:16; Status DC Amlodipine Besylate (Norvasc) 5 mg DAILY PO Last administered on 12/26/18at 10:08; Start 12/25/18 at 12:00; Stop 12/26/18 at 10:26; Status DC Atorvastatin Calcium (Lipitor) 20 mg QHS PO Last administered on 12/29/18at 21:58; Start 12/25/18 at 21:00 Metoprolol Succinate (Toprol Xl) 25 mg DAILY PO Last administered on 12/30/18at 08:29; Start 12/25/18 at 11:00 Acetaminophen (Tylenol) 650 mg PRN Q6HRS PRN PO MILD PAIN / TEMP; Start 12/25/18 at 10:30 Sodium Chloride 1,000 ml @ 60 mls/hr [id number] IV Last administered on 12/27/18at 09:49; Start 12/25/18 at 10:30; Stop 12/27/18 at 19:41; Status DC Acetaminophen/ Hydrocodone Bitart (Lortab 5/325) 1 tab PRN Q4HRS PRN PO SEVERE PAIN; Start 12/25/18 at 10:45 Febuxostat (Uloric) 40 mg DAILY PO Last administered on 12/30/18 08:27; Start 12/26/18 at 09:00 Clopidogrel Bisulfate (Plavix) 75 mg DAILYWBKFT PO Last administered on 12/30/18 08:28; Start 12/26/18 at 08:00 Warfarin Sodium (Coumadin Per Pharmacy) 1 each PRN DAILY PRN MC SEE COMMENTS Last administered on 12/30/18 08:15; Start 12/26/18 at 08:00 Warfarin Sodium (Coumadin) 4 mg 1X WARF ONCE PO ; Start 12/25/18 at 16:47; Stop 12/25/18 at 16:48; Status DC Amoxicillin/ Clavulanate Potassium (Augmentin 875/ 125mg) 1 tab BID PO Last administered on 12/29/18 08:17; Start 12/26/18 at 09:00; Stop 12/29/18 at 12:00; Status DC Lactobacillus Rhamnosus (Culturelle) 1 cap BID PO Last administered on 12/30/18 08:28; Start 12/26/18 at 12:00 Amlodipine Besylate (Norvasc) 10 mg DAILY PO Last administered on 12/30/18 08:28; Start 12/27/18 at 09:00 Warfarin Sodium (Coumadin) 5 mg DAILY16 PO Last administered on 12/26/18at 16:49; Start 12/26/18 at 16:00; Stop 12/27/18 at 12:28; Status DC Amlodipine Besylate (Norvasc) 5 mg 1X ONCE PO ; Start 12/26/18 at 10:30; Stop 12/26/18 at 16:06; Status DC Pantoprazole Sodium (Protonix) 40 mg DAILYAC PO Last administered on 12/30/18 08:28; Start 12/26/18 at 11:00 Amlodipine Besylate (Norvasc) 5 mg 1X ONCE PO Last administered on 12/26/18at 16:48; Start 12/26/18 at 16:15; Stop 12/26/18 at 16:16; Status DC Amlodipine Besylate (Norvasc) 5 mg STK-MED ONCE .ROUTE ; Start 12/26/18 at 16:08; Stop 12/26/18 at 16:09; Status DC Potassium Chloride (Klor-Con) 20 meq 1X ONCE PO Last administered on 12/27/18at 13:13; Start 12/27/18 at 10:30; Stop 12/27/18 at 10:31; Status DC Losartan Potassium (Cozaar) 50 mg DAILY PO Last administered on 12/30/18at 08:28; Start 12/27/18 at 11:00 Warfarin Sodium (Coumadin) 6 mg 1X WARF ONCE PO Last administered on 12/27/18at 16:35; Start 12/27/18 at 16:00; Stop 12/27/18 at 16:01; Status DC Warfarin Sodium (Coumadin) 7.5 mg 1X WARF ONCE PO Last administered on 12/28/18at 16:51; Start 12/28/18 at 16:00; Stop 12/28/18 at 16:01; Status DC Magnesium Oxide (Magnesium Oxide) 400 mg TID PO Last administered on 12/30/18at 08:28; Start 12/29/18 at 09:00 Warfarin Sodium (Coumadin) 7.5 mg 1X WARF ONCE PO Last administered on 12/29/18at 16:03; Start 12/29/18 at 16:00; Stop 12/29/18 at 16:01; Status DC Warfarin Sodium (Coumadin) 9 mg 1X WARF ONCE PO ; Start 12/30/18 at 16:00; Stop 12/30/18 at 16:01 Magnesium Sulfate 100 ml @ 25 mls/hr 1X ONCE IV Last administered on 12/30/18at 09:27; Start 12/30/18 at 09:00; Stop 12/30/18 at 12:59 Active Scripts Active Reported Losartan Potassium 100 Mg Tablet 100 Mg PO DAILY Multi-Vitamin Daily (Multivitamin) 1 Each Tablet 1 Tab PO DAILY 30 Days Coumadin (Warfarin Sodium) 4 Mg Tablet 3.5 Mg PO DAILY Atorvastatin Calcium 20 Mg Tablet 1 Tab PO DAILY Toprol Xl (Metoprolol Succinate) 50 Mg Tab.er.24h 25 Mg PO DAILY Amlodipine Besylate 10 Mg Tablet 10 Mg PO DAILY Uloric (Febuxostat) 40 Mg Tablet 1 Tab PO DAILY Detrol La (Tolterodine Tartrate) 4 Mg Cap.er.24h 1 Cap PO DAILY Vitals/I & O Vital Sign - Last 24 Hours 12/29/18 12/29/18 12/29/18 12/29/18 14:27 19:00 19:35 23:00 Temp 97.9 98.2 98.1 97.9 98.2 98.1 Pulse 72 83 81 Resp 24 20 20 B/P (MAP) 139/78 (98) 131/68 (89) 148/71 (96) Pulse Ox 100 98 98 O2 Delivery Room Air Room Air Room Air Room Air 12/30/18 12/30/18 12/30/18 12/30/18 03:00 07:12 08:00 08:28 Temp 98.6 98.2 98.6 98.2 Pulse 74 74 74 Resp 16 16 B/P (MAP) 132/73 (92) 134/62 (86) 134/62 Pulse Ox 100 99 O2 Delivery Room Air Room Air Room Air O2 Flow Rate 4.0 12/30/18 12/30/18 12/30/18 08:28 08:29 10:28 Temp 97.8 97.8 Pulse 74 74 79 Resp 16 B/P (MAP) 134/62 134/62 140/71 (94) Pulse Ox 98 O2 Delivery Room Air Intake and Output 12/29/18 12/29/18 12/30/18 15:00 23:00 07:00 Intake Total 360 ml 450 ml 0 ml Output Total 150 ml 150 ml Balance 360 ml 300 ml -150 ml ERIKA NELSON MD Dec 30, 2018 11:16
[2018-12-30 14:29] VITALS: BP 135/58
--- NOTE | 2018-12-30 15:40 | PDOC ---
Renal-Progress Notes Subjective Notes Notes NO NEW COMPLAINTS History of Present Illness Hx of present illness STABLE Vitals Vitals Vital Signs Date Time Temp Pulse Resp B/P (MAP) Pulse Ox O2 Delivery O2 Flow Rate FiO2 12/30/18 14:29 98.1 67 16 135/58 (83) 96 Room Air 98.1 12/30/18 08:00 4.0 Weight Weight [ ] I.O. Intake and Output Intake and Output 12/30/18 07:00 Intake Total 810 ml Output Total 300 ml Balance 510 ml Intake Oral 810 ml Output Urine Total 300 ml # Voids 2 # Bowel Movements 1 Labs Labs Laboratory Tests Test 12/29/18 18:15 12/30/18 01:00 12/30/18 01:05 12/30/18 03:30 Heparin Anti-Xa Act, Unfractionated 0.69 IU/mL (0.30-0.70) 0.63 IU/mL (0.30-0.70) Prothrombin Time 18.3 SEC (11.7-14.0) Prothromb Time International Ratio 1.6 (0.8-1.1) White Blood Count 7.7 x10^3/uL (4.0-11.0) Red Blood Count 3.06 x10^6/uL (3.50-5.40) Hemoglobin 9.4 g/dL (12.0-15.5) Hematocrit 29.0 % (36.0-47.0) Mean Corpuscular Volume 95 fL (79-100) Mean Corpuscular Hemoglobin 31 pg (25-35) Mean Corpuscular Hemoglobin Concent 32 g/dL (31-37) Red Cell Distribution Width 14.0 % (11.5-14.5) Platelet Count 238 x10^3/uL (140-400) Neutrophils (%) (Auto) 73 % (31-73) Lymphocytes (%) (Auto) 18 % (24-48) Monocytes (%) (Auto) 8 % (0-9) Eosinophils (%) (Auto) 1 % (0-3) Basophils (%) (Auto) 0 % (0-3) Neutrophils # (Auto) 5.6 x10^3/uL (1.8-7.7) Lymphocytes # (Auto) 1.4 x10^3/uL (1.0-4.8) Monocytes # (Auto) 0.6 x10^3/uL (0.0-1.1) Eosinophils # (Auto) 0.1 x10^3/uL (0.0-0.7) Basophils # (Auto) 0.0 x10^3/uL (0.0-0.2) Sodium Level 143 mmol/L (136-145) Potassium Level 3.8 mmol/L (3.5-5.1) Chloride Level 111 mmol/L (98-107) Carbon Dioxide Level 24 mmol/L (21-32) Anion Gap 8 (6-14) Blood Urea Nitrogen 23 mg/dL (7-20) Creatinine 1.7 mg/dL (0.6-1.0) Estimated GFR (Cockcroft-Gault) 34.9 Glucose Level 94 mg/dL (70-99) Calcium Level 8.7 mg/dL (8.5-10.1) Magnesium Level 1.1 mg/dL (1.8-2.4) Triglycerides Level 65 mg/dL (0-150) Cholesterol Level 98 mg/dL (0-200) LDL Cholesterol, Calculated 51 mg/dL (0-100) VLDL Cholesterol, Calculated 13 mg/dL (0-40) Non-HDL Cholesterol Calculated 64 mg/dL (0-129) HDL Cholesterol 34 mg/dL (40-60) Cholesterol/HDL Ratio 2.9 Test 12/30/18 08:00 Heparin Anti-Xa Act, Unfractionated 0.56 IU/mL (0.30-0.70) Micro Micro Microbiology 12/18/18 Urine Culture - Final, Complete 12/18/18 Urine Culture Result 1 (ALEJANDRINA) - Final, Complete Review of Systems Constitutional: yes: weakness, alert Ears/Nose/Throat: Yes: no symptom reported Eyes: Yes: no symptom reported Pulmonary: Yes no symptom reported Cardiovascular: Yes no symptom reported Gastrointestional: Yes: no symptom reported Genitourinary: Yes: no symptom reported Musculoskeletal: Yes: no symptom reported Psychiatric/Neurological: Yes: no symptom reported Physical Exam General Appearance: no apparent distress Skin: warm Respiratory: bilateral CTA Heart: S1S2 Abdomen: soft, bowel sounds present Genitourinary: bladder flat Neurology: alert, oriented Assessment Assessment IMP WILLIAMS-IMPROVED CKD STAGE 3b WITH CR CL OF 30 EARLIER THIS YEAR 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
[2018-12-30] MEDS ORDERED: WARFARIN 3 MG TABLET. PO ONE (16:00)
[2018-12-30] MEDS: HEPARIN 25,000UTS/500ML PREMIX 500 ML IV PRN (16:59)
--- NOTE | 2018-12-30 17:10 | PN ---
DATE: 12/30/2018 SUBJECTIVE: The patient is resting, slightly propped up in bed, in no apparent distress. On questioning her, she denied any complaint. Nursing staff did not voice any concern except that she continued to be extremely hypomagnesemic, so we did give her 4 grams of IV magnesium. I did start her yesterday on oral magnesium oxide without really much improvement. PHYSICAL EXAMINATION: GENERAL: When I examined her, she looked pale, but no jaundice, cyanosis or thyromegaly. No jugular venous distension. No limb edema. VITAL SIGNS: Her heart rate was 79, blood pressure was 140/71, temperature was 97.8, respiratory rate was 16, and oxygen saturation was 98% on room air. HEAD, EYES, EARS, NOSE AND THROAT: Showed normocephalic, atraumatic. NECK: Supple. HEART: Showed normal first and second heart sounds with no gallop, rub or murmur. CHEST: Clear to auscultation. No crepitation or rhonchi. ABDOMEN: Distended, soft, nontender. NEUROLOGIC: She is awake, alert, responding appropriately. All cranial nerves intact. She moves extremities without difficulty. She ambulates with a walker. Her intake was 1060, output was 600. LABORATORY DATA: As of this morning, her prothrombin time was 18.3, INR 1.6. Her white cell count was 7700, hemoglobin 9.4, hematocrit 29, MCV 95, and platelet count 238,000. Serum sodium 143, potassium 3.8, chloride 111, bicarbonate 24, anion gap of 8, BUN 23, creatinine 1.7, estimated GFR was 55 mL per minute. Her glucose was 94, calcium was 8.7, magnesium was 1.1. Her serum triglycerides, total cholesterol, LDL cholesterol as well as HDL cholesterol are all low. ASSESSMENT: 1. Partial small-bowel obstruction, resolved. The patient is now on regular diet with no nausea, no vomiting, has been on multiple bowel movements. 2. Acute on chronic kidney injury, stage 3. Her baseline creatinine is 1.7. 3. Hypertension, seems to be much better controlled. 4. Hyperlipidemia. 5. Chronic atrial fibrillation, rate controlled. She continues to be on heparin as her INR is subtherapeutic. Her INR today is 1.6. 6. Osteoarthritis of the left knee, treated with steroid injection. 7. Chronic gout. 8. History of left nephrectomy. 9. Left popliteal and left iliac thromboembolectomy with left iliac artery angioplasty and stent deployment. PLAN: To replenish her magnesium both IV and orally and the pharmacy is adjusting the Coumadin dose and hopefully if tomorrow the INR is between 2 to 3, she can be discharged home. JOSHUA HATCH MD DR: VIRIDIANA/angus JOB#: [id number] / [id number]
[2018-12-30 19:49] VITALS: BP 165/96
[2018-12-30] MEDS: ATORVASTATIN CALCIUM 20 MG TABLET PO SCH (20:29)
[2018-12-30 23:30] VITALS: BP 158/105
[2018-12-31 03:17] VITALS: BP 149/88
[2018-12-31 05:20] LABS: HEMATOCRIT 28.2 % (36.0-47.0); HEMOGLOBIN 9.2 g/dL (12.0-15.5); RED BLOOD COUNT 2.98 x10^6/uL (3.50-5.40); RED CELL DISTRIBUTION WIDTH 14.3 % (11.5-14.5)
[2018-12-31 06:09] LABS: CALCIUM 8.7 mg/dL (8.5-10.1); CREATININE 1.7 mg/dL (0.6-1.0); GFR 34.9; MAGNESIUM 1.7 mg/dL (1.8-2.4); POTASSIUM 3.7 mmol/L (3.5-5.1)
[2018-12-31 06:47] LABS: PROTHROMBIN TIME PATIENT 21.2 SEC (11.7-14.0)
[2018-12-31 07:05] VITALS: BP 172/78
[2018-12-31] MEDS: amLODIPine BESYLATE 10 MG TABLET PO SCH (08:25)
[2018-12-31] MEDS: FEBUXOSTAT 40 MG TABLET PO SCH (08:25)
[2018-12-31] MEDS: CLOPIDOGREL BISULFATE 75 MG TABLET PO SCH (08:25)
[2018-12-31] MEDS: LACTOBACILLUS RHAMNOSUS GG 1 CAPSULE. PO SCH ×2 (08:25→21:08)
[2018-12-31] MEDS: METOPROLOL SUCC 24HR ER 25 MG TAB.ER.24H. PO SCH (08:26)
[2018-12-31] MEDS: LOSARTAN POTASSIUM 50 MG TABLET. PO SCH (08:26)
[2018-12-31] MEDS: MAGNESIUM OXIDE 400 MG TABLET PO SCH ×3 (08:26→21:08)
[2018-12-31] MEDS: PANTOPRAZOLE 40 MG TABLET.DR. PO SCH (08:27)
[2018-12-31] MEDS: DICLOFENAC SODIUM 1% TOPICAL GEL 100GM TUBE. TP SCH ×4 (08:27→21:08)
[2018-12-31] MEDS ORDERED: BENZOCAINE/MENTHOL LOZENGE. PO PRN (09:30)
--- NOTE | 2018-12-31 10:17 | PN ---
DATE: 12/31/2018 SUBJECTIVE: The patient is resting, sitting in her recliner, in no apparent respiratory distress. She continued to complain of sore throat. Her INR continued to be subtherapeutic. PHYSICAL EXAMINATION: GENERAL: When I saw her this morning, she was pale, but no jaundice, cyanosis or thyromegaly. No jugular venous distension. No lower limb edema. VITAL SIGNS: Her heart rate was 64, blood pressure was 172/78, temperature was 98, respiratory rate was 16, and oxygen saturation was 98%. HEAD, EYES, EARS, NOSE AND THROAT: Normocephalic, atraumatic. NECK: Supple. HEART: Showed normal first and second heart sounds. No gallop or murmur. CHEST: Clear to auscultation. No crepitation or rhonchi. ABDOMEN: Distended, soft, nontender. NEUROLOGIC: She is awake, alert, responding appropriately. All cranial nerves intact. She moves extremities without difficulty. Her intake was 800, output was 300. LABORATORY DATA: Her lab work this morning showed a serum sodium 144, potassium 3.7, chloride 110, bicarbonate 24, anion gap of 10, BUN 20, creatinine 1.7. Her estimated GFR was 35 mL per minute. Her glucose was 89, calcium was 8.7, magnesium was 1.7. Her white cell count was 7000, hemoglobin was 9.2, hematocrit 28.2, MCV 95, and platelet count 234,000. Her prothrombin time was 21.2, INR 1.9. ASSESSMENT: 1. Partial small-bowel obstruction, resolved, which she is now on regular diet with no nausea, no vomiting, has had multiple bowel movements. 2. Acute on chronic kidney injury, stage 3 with creatinine of 1.7. 3. Hypertension, seems to be much better controlled. 4. Hyperlipidemia. 5. Chronic atrial fibrillation, rate controlled. She continues to be on heparin. Her INR is still subtherapeutic. INR today is 1.9. 6. Osteoarthritis, left knee, status post steroid injection. 7. Chronic gout. 8. History of left nephrectomy. 9. Left popliteal and left iliac thromboembolectomy with left iliac artery angioplasty and stent deployment. PLAN: Continue with heparin and Coumadin. Hopefully, tomorrow, her INR will be between 2-3 and we can discontinue her heparin, can be discharged home. She is already on oral magnesium. Her serum magnesium today is 1.7. I will check that again tomorrow to make sure that her magnesium is well replenished. JOSHUA HATCH MD DR: VIRIDIANA/angus JOB#: [id number] / [id number]
[2018-12-31 10:25] VITALS: BP 143/72
--- NOTE | 2018-12-31 11:14 | NUR ---
Pharmacy Warfarin Dosing Note S: Pharmacy consulted to assist with anticoagulation therapy. O: LEYDI TRUJILLO is a 83 year old F with atrial fibrillation, h/o DVT. LABS: Last INR: 1.9 Last HGB: 9.4 Last HCT: 29 Last PLT: 238 Last dose of 9 mg given on 12/29/18 at 1603 Vitamin K given: 10 mg IV (12/19) Ongoing Drug Interactions: Plavix A:INR of 1.9 is below desired range, trending up from INR of 1.6 yesterday. The slow INR trend likely due to patient receiving IV vitamin K on 12/19. Heparin drip continues for bridge therapy, UFH in goal range this AM. P: Warfarin dose: 7.5 mg today at 1600 Bridge Therapy: therapeutic heparin drip Next INR due 01/01/19 Pharmacy anticoagulation service will continue to follow. MICA VALDEZ [facility], 12/31/18 [id number]
--- NOTE | 2018-12-31 11:38 | PDOC ---
Renal-Progress Notes Subjective Notes Notes FEELS BETTER History of Present Illness Hx of present illness EATING WELL AND NO ABD PAIN Vitals Vitals Vital Signs Date Time Temp Pulse Resp B/P (MAP) Pulse Ox O2 Delivery O2 Flow Rate FiO2 12/31/18 10:25 97.8 72 16 143/72 (95) 99 Room Air 97.8 12/30/18 08:00 4.0 Weight Weight [ ] I.O. Intake and Output Intake and Output 12/31/18 06:59 Intake Total 660 ml Balance 660 ml Intake Oral 660 ml # Voids 5 # Bowel Movements 2 Labs Labs Laboratory Tests Test 12/31/18 04:45 White Blood Count 7.0 x10^3/uL (4.0-11.0) Red Blood Count 2.98 x10^6/uL (3.50-5.40) Hemoglobin 9.2 g/dL (12.0-15.5) Hematocrit 28.2 % (36.0-47.0) Mean Corpuscular Volume 95 fL (79-100) Mean Corpuscular Hemoglobin 31 pg (25-35) Mean Corpuscular Hemoglobin Concent 33 g/dL (31-37) Red Cell Distribution Width 14.3 % (11.5-14.5) Platelet Count 234 x10^3/uL (140-400) Prothrombin Time 21.2 SEC (11.7-14.0) Prothromb Time International Ratio 1.9 (0.8-1.1) Heparin Anti-Xa Act, Unfractionated 0.67 IU/mL (0.30-0.70) Sodium Level 144 mmol/L (136-145) Potassium Level 3.7 mmol/L (3.5-5.1) Chloride Level 110 mmol/L (98-107) Carbon Dioxide Level 24 mmol/L (21-32) Anion Gap 10 (6-14) Blood Urea Nitrogen 20 mg/dL (7-20) Creatinine 1.7 mg/dL (0.6-1.0) Estimated GFR (Cockcroft-Gault) 34.9 Glucose Level 89 mg/dL (70-99) Calcium Level 8.7 mg/dL (8.5-10.1) Magnesium Level 1.6 mg/dL (1.8-2.4) Micro Micro Microbiology 12/18/18 Urine Culture - Final, Complete 12/18/18 Urine Culture Result 1 (ALEJANDRINA) - Final, Complete Review of Systems Constitutional: yes: weakness, alert Ears/Nose/Throat: Yes: no symptom reported Eyes: Yes: no symptom reported Pulmonary: Yes no symptom reported Cardiovascular: Yes no symptom reported Gastrointestional: Yes: no symptom reported Genitourinary: Yes: no symptom reported Musculoskeletal: Yes: no symptom reported Psychiatric/Neurological: Yes: no symptom reported Physical Exam General Appearance: no apparent distress Skin: warm Respiratory: bilateral CTA Heart: S1S2 Abdomen: soft, bowel sounds present Genitourinary: bladder flat Neurology: alert, oriented Assessment Assessment IMP WILLIAMS-IMPROVED CKD STAGE 3b WITH CR CL OF 30 EARLIER THIS YEAR-CR AT 1.7 NOW WHICH IS HER BASELINE 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
--- NOTE | 2018-12-31 11:52 | PDOC ---
G I PROGRESS NOTE Subjective No complaints. Physical Exam Lungs clear. RRR Abdomen soft, not tender nor distended. Review of Relevant I have reviewed the following items rubia (where applicable) has been applied. Labs Laboratory Tests Test 12/29/18 12:05 12/29/18 18:15 12/30/18 01:00 12/30/18 01:05 Heparin Anti-Xa Act, Unfractionated 0.71 IU/mL (0.30-0.70) 0.69 IU/mL (0.30-0.70) 0.63 IU/mL (0.30-0.70) Prothrombin Time 18.3 SEC (11.7-14.0) Prothromb Time International Ratio 1.6 (0.8-1.1) Test 12/30/18 03:30 12/30/18 08:00 12/31/18 04:45 White Blood Count 7.7 x10^3/uL (4.0-11.0) 7.0 x10^3/uL (4.0-11.0) Red Blood Count 3.06 x10^6/uL (3.50-5.40) 2.98 x10^6/uL (3.50-5.40) Hemoglobin 9.4 g/dL (12.0-15.5) 9.2 g/dL (12.0-15.5) Hematocrit 29.0 % (36.0-47.0) 28.2 % (36.0-47.0) Mean Corpuscular Volume 95 fL (79-100) 95 fL (79-100) Mean Corpuscular Hemoglobin 31 pg (25-35) 31 pg (25-35) Mean Corpuscular Hemoglobin Concent 32 g/dL (31-37) 33 g/dL (31-37) Red Cell Distribution Width 14.0 % (11.5-14.5) 14.3 % (11.5-14.5) Platelet Count 238 x10^3/uL (140-400) 234 x10^3/uL (140-400) Neutrophils (%) (Auto) 73 % (31-73) Lymphocytes (%) (Auto) 18 % (24-48) Monocytes (%) (Auto) 8 % (0-9) Eosinophils (%) (Auto) 1 % (0-3) Basophils (%) (Auto) 0 % (0-3) Neutrophils # (Auto) 5.6 x10^3/uL (1.8-7.7) Lymphocytes # (Auto) 1.4 x10^3/uL (1.0-4.8) Monocytes # (Auto) 0.6 x10^3/uL (0.0-1.1) Eosinophils # (Auto) 0.1 x10^3/uL (0.0-0.7) Basophils # (Auto) 0.0 x10^3/uL (0.0-0.2) Sodium Level 143 mmol/L (136-145) 144 mmol/L (136-145) Potassium Level 3.8 mmol/L (3.5-5.1) 3.7 mmol/L (3.5-5.1) Chloride Level 111 mmol/L (98-107) 110 mmol/L (98-107) Carbon Dioxide Level 24 mmol/L (21-32) 24 mmol/L (21-32) Anion Gap 8 (6-14) 10 (6-14) Blood Urea Nitrogen 23 mg/dL (7-20) 20 mg/dL (7-20) Creatinine 1.7 mg/dL (0.6-1.0) 1.7 mg/dL (0.6-1.0) Estimated GFR (Cockcroft-Gault) 34.9 34.9 Glucose Level 94 mg/dL (70-99) 89 mg/dL (70-99) Calcium Level 8.7 mg/dL (8.5-10.1) 8.7 mg/dL (8.5-10.1) Magnesium Level 1.1 mg/dL (1.8-2.4) 1.6 mg/dL (1.8-2.4) Triglycerides Level 65 mg/dL (0-150) Cholesterol Level 98 mg/dL (0-200) LDL Cholesterol, Calculated 51 mg/dL (0-100) VLDL Cholesterol, Calculated 13 mg/dL (0-40) Non-HDL Cholesterol Calculated 64 mg/dL (0-129) HDL Cholesterol 34 mg/dL (40-60) Cholesterol/HDL Ratio 2.9 Heparin Anti-Xa Act, Unfractionated 0.56 IU/mL (0.30-0.70) 0.67 IU/mL (0.30-0.70) Prothrombin Time 21.2 SEC (11.7-14.0) Prothromb Time International Ratio 1.9 (0.8-1.1) Laboratory Tests Test 12/31/18 04:45 White Blood Count 7.0 x10^3/uL (4.0-11.0) Red Blood Count 2.98 x10^6/uL (3.50-5.40) Hemoglobin 9.2 g/dL (12.0-15.5) Hematocrit 28.2 % (36.0-47.0) Mean Corpuscular Volume 95 fL (79-100) Mean Corpuscular Hemoglobin 31 pg (25-35) Mean Corpuscular Hemoglobin Concent 33 g/dL (31-37) Red Cell Distribution Width 14.3 % (11.5-14.5) Platelet Count 234 x10^3/uL (140-400) Prothrombin Time 21.2 SEC (11.7-14.0) Prothromb Time International Ratio 1.9 (0.8-1.1) Heparin Anti-Xa Act, Unfractionated 0.67 IU/mL (0.30-0.70) Sodium Level 144 mmol/L (136-145) Potassium Level 3.7 mmol/L (3.5-5.1) Chloride Level 110 mmol/L (98-107) Carbon Dioxide Level 24 mmol/L (21-32) Anion Gap 10 (6-14) Blood Urea Nitrogen 20 mg/dL (7-20) Creatinine 1.7 mg/dL (0.6-1.0) Estimated GFR (Cockcroft-Gault) 34.9 Glucose Level 89 mg/dL (70-99) Calcium Level 8.7 mg/dL (8.5-10.1) Magnesium Level 1.6 mg/dL (1.8-2.4) Microbiology 12/18/18 Urine Culture - Final, Complete 12/18/18 Urine Culture Result 1 (ALEJANDRINA) - Final, Complete Vitals/I & O Vital Sign - Last 24 Hours 12/30/18 12/30/18 12/30/18 12/30/18 14:29 19:49 20:00 23:30 Temp 98.1 97.3 97.6 98.1 97.3 97.6 Pulse 67 76 66 Resp 16 16 16 B/P (MAP) 135/58 (83) 165/96 (119) 158/105 (122) Pulse Ox 96 99 98 O2 Delivery Room Air Room Air Room Air Room Air 12/31/18 12/31/18 12/31/18 12/31/18 03:17 07:05 08:00 08:25 Temp 97.9 98.0 97.9 98.0 Pulse 71 64 64 Resp 16 16 B/P (MAP) 149/88 (108) 172/78 (109) 172/78 Pulse Ox 98 O2 Delivery Room Air Room Air Room Air 12/31/18 12/31/18 12/31/18 08:26 08:26 10:25 Temp 97.8 97.8 Pulse 64 64 72 Resp 16 B/P (MAP) 172/78 172/78 143/72 (95) Pulse Ox 99 O2 Delivery Room Air Intake and Output 12/30/18 12/30/18 12/31/18 15:00 23:00 07:00 Intake Total 360 ml 300 ml Balance 360 ml 300 ml Problem List Problems Medical Problems: (1) Epigastric pain Status: Acute (2) Epigastric pain Status: Acute (3) Nausea Status: Acute (4) Nausea Status: Acute (5) Small bowel obstruction Status: Acute Assessment SBO resolved. Plan of Care: Continue current Tx, Mgmt LAURA HIDALGO MD Dec 31, 2018 11:51
[2018-12-31] MEDS ORDERED: MAGNESIUM SULFATE 2GM 50 ML IV ONE (12:30)
[2018-12-31 14:29] VITALS: BP 155/81
[2018-12-31] MEDS: HEPARIN 25,000UTS/500ML PREMIX 500 ML IV PRN (15:53)
[2018-12-31] MEDS ORDERED: WARFARIN 7.5 MG TABLET. PO ONE (16:00)
[2018-12-31 19:50] VITALS: BP 146/68
[2018-12-31] MEDS: ATORVASTATIN CALCIUM 20 MG TABLET PO SCH (21:08)
[2018-12-31 22:46] VITALS: BP 169/84
[2019-01-01 02:37] VITALS: BP 179/82
[2019-01-01] MEDS: hydrALAZINE 20 MG/ML VIAL. IVP PRN (02:59)
[2019-01-01 07:00] VITALS: BP 142/68
[2019-01-01 07:04] LABS: UNFRACTIONATED HEPARIN TESTING 0.69 IU/mL (0.30-0.70)
[2019-01-01 07:11] LABS: CALCIUM 8.5 mg/dL (8.5-10.1); CREATININE 1.5 mg/dL (0.6-1.0); GFR 40.3
[2019-01-01] MEDS: amLODIPine BESYLATE 10 MG TABLET PO SCH (08:17)
[2019-01-01] MEDS: MAGNESIUM OXIDE 400 MG TABLET PO SCH ×2 (08:17→13:33)
[2019-01-01] MEDS: LOSARTAN POTASSIUM 50 MG TABLET. PO SCH (08:18)
[2019-01-01] MEDS: CLOPIDOGREL BISULFATE 75 MG TABLET PO SCH (08:18)
[2019-01-01] MEDS: LACTOBACILLUS RHAMNOSUS GG 1 CAPSULE. PO SCH (08:18)
[2019-01-01] MEDS: DICLOFENAC SODIUM 1% TOPICAL GEL 100GM TUBE. TP SCH ×2 (08:19→13:33)
[2019-01-01] MEDS: FEBUXOSTAT 40 MG TABLET PO SCH (08:19)
[2019-01-01] MEDS: PANTOPRAZOLE 40 MG TABLET.DR. PO SCH (08:19)
[2019-01-01] MEDS: METOPROLOL SUCC 24HR ER 25 MG TAB.ER.24H. PO SCH (08:19)
--- NOTE | 2019-01-01 09:30 | PDOC ---
SURGICAL PROGRESS NOTE Subjective Continues to do well without abd complaints and has flatus and BM.s without problems. WBC normal and she has no fever. INR 2.3 will follow after discharge in two weeks. Vital Signs Vital Signs Date Time Temp Pulse Resp B/P (MAP) Pulse Ox O2 Delivery O2 Flow Rate FiO2 01/01/19 08:19 70 142/68 01/01/19 07:00 98.1 18 97 Room Air 98.1 I&O Intake and Output 01/01/19 07:00 Intake Total 1230 ml Balance 1230 ml Intake Oral 1230 ml # Voids 5 # Bowel Movements 2 Labs Laboratory Tests Test 12/31/18 04:45 01/01/19 06:15 White Blood Count 7.0 x10^3/uL (4.0-11.0) Red Blood Count 2.98 x10^6/uL (3.50-5.40) Hemoglobin 9.2 g/dL (12.0-15.5) Hematocrit 28.2 % (36.0-47.0) Mean Corpuscular Volume 95 fL (79-100) Mean Corpuscular Hemoglobin 31 pg (25-35) Mean Corpuscular Hemoglobin Concent 33 g/dL (31-37) Red Cell Distribution Width 14.3 % (11.5-14.5) Platelet Count 234 x10^3/uL (140-400) Prothrombin Time 21.2 SEC (11.7-14.0) 25.0 SEC (11.7-14.0) Prothromb Time International Ratio 1.9 (0.8-1.1) 2.3 (0.8-1.1) Heparin Anti-Xa Act, Unfractionated 0.67 IU/mL (0.30-0.70) 0.69 IU/mL (0.30-0.70) Sodium Level 144 mmol/L (136-145) 144 mmol/L (136-145) Potassium Level 3.7 mmol/L (3.5-5.1) 4.0 mmol/L (3.5-5.1) Chloride Level 110 mmol/L (98-107) 110 mmol/L (98-107) Carbon Dioxide Level 24 mmol/L (21-32) 25 mmol/L (21-32) Anion Gap 10 (6-14) 9 (6-14) Blood Urea Nitrogen 20 mg/dL (7-20) 18 mg/dL (7-20) Creatinine 1.7 mg/dL (0.6-1.0) 1.5 mg/dL (0.6-1.0) Estimated GFR (Cockcroft-Gault) 34.9 40.3 Glucose Level 89 mg/dL (70-99) 94 mg/dL (70-99) Calcium Level 8.7 mg/dL (8.5-10.1) 8.5 mg/dL (8.5-10.1) Magnesium Level 1.6 mg/dL (1.8-2.4) 1.6 mg/dL (1.8-2.4) Laboratory Tests Test 01/01/19 06:15 Prothrombin Time 25.0 SEC (11.7-14.0) Prothromb Time International Ratio 2.3 (0.8-1.1) Heparin Anti-Xa Act, Unfractionated 0.69 IU/mL (0.30-0.70) Sodium Level 144 mmol/L (136-145) Potassium Level 4.0 mmol/L (3.5-5.1) Chloride Level 110 mmol/L (98-107) Carbon Dioxide Level 25 mmol/L (21-32) Anion Gap 9 (6-14) Blood Urea Nitrogen 18 mg/dL (7-20) Creatinine 1.5 mg/dL (0.6-1.0) Estimated GFR (Cockcroft-Gault) 40.3 Glucose Level 94 mg/dL (70-99) Calcium Level 8.5 mg/dL (8.5-10.1) Magnesium Level 1.6 mg/dL (1.8-2.4) Problem List Problems Medical Problems: (1) Epigastric pain Status: Acute (2) Epigastric pain Status: Acute (3) Nausea Status: Acute (4) Nausea Status: Acute (5) Small bowel obstruction Status: Acute JASMYN MYERS MD Jan 01, 2019 09:30
--- NOTE | 2019-01-01 09:40 | NUR ---
Wound Care Pt seen for f/u of wound care consult. wound assessment completed at this time. Pt has a small dry, eschar covered burn to left medial forearm, edges dry and intact with no drainage noted, periwound pink area, skin cleaned and skin prep applied for sealant. patient assessed from head to toe and no other wounds noted at this time. wound care is signing off at this time, please re-consult if the integumentary assessment changes.
--- NOTE | 2019-01-01 09:45 | PDOC ---
PROGRESS NOTES Subjective Subjective She admits some stiffness and swelling of her knees. Objective Objective Vital Signs Date Time Temp Pulse Resp B/P (MAP) Pulse Ox O2 Delivery O2 Flow Rate FiO2 01/01/19 08:19 70 142/68 01/01/19 07:00 98.1 18 97 Room Air 98.1 12/30/18 08:00 4.0 Intake and Output 01/01/19 07:00 Intake Total 1230 ml Balance 1230 ml Intake Oral 1230 ml # Voids 5 # Bowel Movements 2 Physical Exam Physical Exam She is alert,sitting at edge of bed and seems comfortable and she remains independent with her mobility at roller walker level. Assessment Assessment Problems Medical Problems: (1) Epigastric pain Status: Acute (2) Epigastric pain Status: Acute (3) Nausea Status: Acute (4) Nausea Status: Acute (5) Small bowel obstruction Status: Acute Plan Plan of Care Agree with plans for home when medically stable. Comment Review of Relevant I have reviewed the following items rubia (where applicable) has been applied. Labs Laboratory Tests Test 12/31/18 04:45 01/01/19 06:15 White Blood Count 7.0 x10^3/uL (4.0-11.0) Red Blood Count 2.98 x10^6/uL (3.50-5.40) Hemoglobin 9.2 g/dL (12.0-15.5) Hematocrit 28.2 % (36.0-47.0) Mean Corpuscular Volume 95 fL (79-100) Mean Corpuscular Hemoglobin 31 pg (25-35) Mean Corpuscular Hemoglobin Concent 33 g/dL (31-37) Red Cell Distribution Width 14.3 % (11.5-14.5) Platelet Count 234 x10^3/uL (140-400) Prothrombin Time 21.2 SEC (11.7-14.0) 25.0 SEC (11.7-14.0) Prothromb Time International Ratio 1.9 (0.8-1.1) 2.3 (0.8-1.1) Heparin Anti-Xa Act, Unfractionated 0.67 IU/mL (0.30-0.70) 0.69 IU/mL (0.30-0.70) Sodium Level 144 mmol/L (136-145) 144 mmol/L (136-145) Potassium Level 3.7 mmol/L (3.5-5.1) 4.0 mmol/L (3.5-5.1) Chloride Level 110 mmol/L (98-107) 110 mmol/L (98-107) Carbon Dioxide Level 24 mmol/L (21-32) 25 mmol/L (21-32) Anion Gap 10 (6-14) 9 (6-14) Blood Urea Nitrogen 20 mg/dL (7-20) 18 mg/dL (7-20) Creatinine 1.7 mg/dL (0.6-1.0) 1.5 mg/dL (0.6-1.0) Estimated GFR (Cockcroft-Gault) 34.9 40.3 Glucose Level 89 mg/dL (70-99) 94 mg/dL (70-99) Calcium Level 8.7 mg/dL (8.5-10.1) 8.5 mg/dL (8.5-10.1) Magnesium Level 1.6 mg/dL (1.8-2.4) 1.6 mg/dL (1.8-2.4) Laboratory Tests Test 01/01/19 06:15 Prothrombin Time 25.0 SEC (11.7-14.0) Prothromb Time International Ratio 2.3 (0.8-1.1) Heparin Anti-Xa Act, Unfractionated 0.69 IU/mL (0.30-0.70) Sodium Level 144 mmol/L (136-145) Potassium Level 4.0 mmol/L (3.5-5.1) Chloride Level 110 mmol/L (98-107) Carbon Dioxide Level 25 mmol/L (21-32) Anion Gap 9 (6-14) Blood Urea Nitrogen 18 mg/dL (7-20) Creatinine 1.5 mg/dL (0.6-1.0) Estimated GFR (Cockcroft-Gault) 40.3 Glucose Level 94 mg/dL (70-99) Calcium Level 8.5 mg/dL (8.5-10.1) Magnesium Level 1.6 mg/dL (1.8-2.4) Microbiology 12/18/18 Urine Culture - Final, Complete 12/18/18 Urine Culture Result 1 (ALEJANDRINA) - Final, Complete Medications Current Medications Ondansetron HCl (Zofran) 4 mg 1X ONCE IM ; Start 12/16/18 at 09:30; Stop 12/16/18 at 09:31; Status DC Fentanyl Citrate (Fentanyl 2ml Vial) 75 mcg 1X ONCE IVP Last administered on 12/16/18at 09:46; Start 12/16/18 at 09:45; Stop 12/16/18 at 09:46; Status DC Ondansetron HCl (Zofran) 4 mg 1X ONCE IVP Last administered on 12/16/18at 09:51; Start 12/16/18 at 10:00; Stop 12/16/18 at 10:01; Status DC Sodium Chloride 1,000 ml @ 1,000 mls/hr 1X ONCE IV Last administered on 12/16/18at 10:40; Start 12/16/18 at 10:15; Stop 12/16/18 at 11:14; Status DC Clonidine HCl (Catapres) 0.1 mg 1X ONCE PO Last administered on 12/16/18at 15:12; Start 12/16/18 at 14:15; Stop 12/16/18 at 14:16; Status DC Fentanyl Citrate (Fentanyl 2ml Vial) 75 mcg 1X ONCE IVP ; Start 12/16/18 at 15:15; Stop 12/16/18 at 15:16; Status DC Ondansetron HCl (Zofran) 4 mg PRN Q8HRS PRN IV NAUSEA/VOMITING; Start 12/16/18 at 15:15; Stop 12/16/18 at 17:10; Status DC Fentanyl Citrate (Fentanyl 2ml Vial) 50 mcg PRN Q1HR PRN IV PAIN Last administered on 12/17/18at 07:28; Start 12/16/18 at 15:15; Stop 12/17/18 at 15:14; Status DC Sodium Chloride 1,000 ml @ 125 mls/hr Q8H IV ; Start 12/16/18 at 15:10; Stop 12/16/18 at 17:26; Status DC Acetaminophen (Tylenol) 650 mg PRN Q4HRS PRN PO FEVER; Start 12/16/18 at 15:15; Stop 12/17/18 at 15:14; Status DC Potassium Chloride/Dextrose/ Sod Cl 1,000 ml @ 100 mls/hr Q10H IV Last administered on 12/18/18at 01:27; Start 12/16/18 at 17:00; Stop 12/18/18 at 10:34; Status DC Ondansetron HCl (Zofran) 4 mg PRN Q6HRS PRN IVP NAUSEA/VOMITING Last administered on 12/18/18at 21:17; Start 12/16/18 at 17:00 Hydralazine HCl (Apresoline Inj) 10 mg PRN Q6HRS PRN IVP ELEVATED BP, SEE COMMENTS Last administered on 01/01/19at 02:59; Start 12/17/18 at 01:00 Enoxaparin Sodium (Lovenox 100mg Syringe) 100 mg DAILY SQ Last administered on 12/17/18at 12:49; Start 12/17/18 at 10:30; Stop 12/19/18 at 09:14; Status DC Info (Anti-Coagulation Monitoring By Pharmacy) 1 each PRN DAILY PRN MC SEE COMMENTS Last administered on 12/30/18at 08:13; Start 12/17/18 at 10:15 Pantoprazole Sodium (PROTONIX VIAL for IV PUSH) 40 mg DAILYAC IVP Last administered on 12/25/18at 06:23; Start 12/17/18 at 10:30; Stop 12/25/18 at 10:27; Status DC Acetaminophen (Tylenol Supp) 650 mg PRN Q6HRS PRN ME HEADACHE / TEMP; Start 12/17/18 at 10:00; Stop 12/25/18 at 10:27; Status DC Fentanyl Citrate (Fentanyl 2ml Vial) 50 mcg PRN Q4HRS PRN IVP PAIN Last administered on 12/23/18at 22:01; Start 12/17/18 at 10:00; Stop 12/27/18 at 09:54; Status DC Insulin Human Lispro (HumaLOG) 0-6 UNITS BG 300-399... Q6HRS SQ ; Start 12/17/18 at 12:00; Stop 12/17/18 at 10:24; Status DC Ceftriaxone Sodium (Rocephin) 1 gm Q24H IVP Last administered on 12/21/18at 12:42; Start 12/18/18 at 11:00; Stop 12/22/18 at 10:07; Status DC Dextrose/Sodium Chloride 1,000 ml @ 150 mls/hr Q6H40M IV Last administered on 12/20/18at 03:00; Start 12/18/18 at 10:30; Stop 12/20/18 at 09:52; Status DC Bupivacaine HCl/ Epinephrine Bitart (Sensorcain-Epi 0.5%-1:359774 Mpf) 30 ml 1X ONCE INJ ; Start 12/18/18 at 15:00; Stop 12/18/18 at 15:01; Status Cancel Bupivacaine HCl/ Epinephrine Bitart (Sensorcain-Epi 0.5%-1:388206 Mpf) 30 ml 1X ONCE INJ Last administered on 12/19/18at 06:00; Start 12/19/18 at 06:00; Stop 12/19/18 at 06:01; Status DC Ondansetron HCl (Zofran) 4 mg PRN Q6HRS PRN IV NAUSEA/VOMITING; Start 12/19/18 at 07:00; Stop 12/20/18 at 06:59; Status DC Fentanyl Citrate (Fentanyl 2ml Vial) 25 mcg PRN Q5MIN PRN IV MILD PAIN 1-3; Start 12/19/18 at 07:00; Stop 12/20/18 at 06:59; Status DC Fentanyl Citrate (Fentanyl 2ml Vial) 50 mcg PRN Q5MIN PRN IV MODERATE TO SEVERE PAIN; Start 12/19/18 at 07:00; Stop 12/20/18 at 06:59; Status DC Morphine Sulfate (Morphine Sulfate) 1 mg PRN Q10MIN PRN IV SEVERE PAIN 7-10; Start 12/19/18 at 07:00; Stop 12/20/18 at 06:59; Status DC Ringer's Solution 1,000 ml @ 30 mls/hr Q24H IV ; Start 12/19/18 at 07:00; Stop 12/19/18 at 18:59; Status DC Lidocaine HCl (Xylocaine-Mpf 1% 2ml Vial) 2 ml PRN 1X PRN ID PRIOR TO IV START; Start 12/19/18 at 07:00; Stop 12/20/18 at 06:59; Status DC Hydromorphone HCl (Dilaudid) 0.5 mg PRN Q10MIN PRN IV SEV PAIN, Second choice; Start 12/19/18 at 07:00; Stop 12/20/18 at 06:59; Status DC Prochlorperazine Edisylate (Compazine) 5 mg PACU PRN PRN IV NAUSEA, MRX1; Start 12/19/18 at 07:00; Stop 12/20/18 at 06:59; Status DC Phytonadione 10 mg/Dextrose 51 ml @ 102 mls/hr 1X ONCE IV Last administered on 12/19/18at 10:37; Start 12/19/18 at 09:15; Stop 12/19/18 at 09:44; Status DC Potassium Chloride/Dextrose/ Sod Cl 1,000 ml @ 150 mls/hr Q6H40M IV Last administered on 12/21/18at 03:26; Start 12/20/18 at 11:00; Stop 12/21/18 at 11:06; Status DC Lidocaine HCl (Lidocaine Pf 2% Vial) 5 ml STK-MED ONCE .ROUTE ; Start 12/20/18 at 11:14; Stop 12/20/18 at 11:14; Status DC Neostigmine Methylsulfate (Bloxiverz) 10 mg STK-MED ONCE .ROUTE ; Start 12/20/18 at 11:16; Stop 12/20/18 at 11:17; Status DC Rocuronium [place] (Zemuron) 50 mg STK-MED ONCE .ROUTE ; Start 12/20/18 at 11:17; Stop 12/20/18 at 11:17; Status DC Fentanyl Citrate (Fentanyl 2ml Vial) 100 mcg STK-MED ONCE .ROUTE ; Start 11/29 05/16 at 11:17; Stop 12/20/18 at 11:18; Status DC Midazolam HCl (Versed) 2 mg STK-MED ONCE .ROUTE ; Start 12/20/18 at 11:17; Stop 12/20/18 at 11:18; Status DC Glycopyrrolate (Robinul) 1 mg STK-MED ONCE .ROUTE ; Start 12/20/18 at 11:17; Stop 12/20/18 at 11:18; Status DC Succinylcholine Chloride (Anectine) 200 mg STK-MED ONCE .ROUTE ; Start 12/20/18 at 11:21; Stop 12/20/18 at 11:21; Status DC Diclofenac Sodium (Voltaren) 1 marilyn QID TP Last administered on 01/01/19at 08:19; Start 12/21/18 at 13:00 Dextrose/Sodium Chloride 1,000 ml @ 125 mls/hr Q8H IV Last administered on 12/23/18at 03:30; Start 12/21/18 at 11:15; Stop 12/23/18 at 11:59; Status DC Methylprednisolone Acetate (DEPO-Medrol 40MG VIAL) 40 mg 1X ONCE IM Last administered on 12/21/18at 12:00; Start 12/21/18 at 12:00; Stop 12/21/18 at 12:01; Status DC Bupivacaine HCl (Sensorcaine-Mpf 0.25%) 10 ml 1X ONCE IJ Last administered on 12/21/18at 12:00; Start 12/21/18 at 12:00; Stop 12/21/18 at 12:01; Status DC Piperacillin Sod/ Tazobactam Sod 3.375 gm/Sodium Chloride 50 ml @ 100 mls/hr Q6HRS IV Last administered on 12/26/18at 05:37; Start 12/22/18 at 12:00; Stop 12/26/18 at 08:41; Status DC Heparin Sodium/ Dextrose 500 ml @ 32 mls/min CONT PRN IV SEE PROTOCOL; Start 12/22/18 at 14:30; Stop 12/22/18 at 20:12; Status DC Heparin Sodium (Porcine) (Heparin Sodium) 3,050 unit PRN Q6HRS PRN IV FOR UFH LEVEL LESS THAN 0.2; Start 12/22/18 at 14:30; Stop 12/22/18 at 20:10; Status DC Heparin Sodium (Porcine) (Heparin Sodium) 1,550 unit PRN Q6HRS PRN IV FOR UFH LEVEL 0.2 - 0.29; Start 12/22/18 at 14:30; Stop 12/22/18 at 20:10; Status DC Heparin Sodium (Porcine) (Heparin Sodium) 5,000 unit Q8HRS SQ Last administered on 12/22/18at 22:11; Start 12/22/18 at 22:00; Stop 12/23/18 at 06:10; Status DC Fentanyl Citrate (Fentanyl 2ml Vial) 25 mcg 1X ONCE IVP Last administered on 12/23/18at 03:21; Start 12/23/18 at 03:30; Stop 12/23/18 at 03:31; Status DC Heparin Sodium (Porcine) (Heparin Sodium) 5,000 unit 1X STAT IV ; Start 12/23/18 at 05:58; Stop 12/23/18 at 05:59; Status UNV Heparin Sodium/ Dextrose 500 ml @ 0 mls/hr CONT PRN IV SEE I/O RECORD; Start 1 at 06:00; Status UNV Heparin Sodium (Porcine) (Heparin Sodium) 5,000 unit 1X ONCE IV Last administered on 12/23/18at 06:16; Start 12/23/18 at 06:30; Stop 12/23/18 at 06:31; Status DC Heparin Sodium/ Dextrose 500 ml @ 24 mls/hr CONT PRN PRN IV DVT Last administered on 12/31/18at 15:53; Start 12/23/18 at 06:30 Heparin Sodium (Porcine) (Heparin Sodium) 3,050 unit PRN Q6HRS PRN IV FOR UFH LEVEL LESS THAN 0.2 Last administered on 12/27/18at 00:08; Start 12/23/18 at 06:15 Heparin Sodium (Porcine) (Heparin Sodium) 1,550 unit PRN Q6HRS PRN IV FOR UFH LEVEL 0.2 - 0.29 Last administered on 12/29/18at 06:36; Start 12/23/18 at 06:15 Propofol 20 ml @ As Directed STK-MED ONCE IV ; Start 12/23/18 at 06:28; Stop 12/23/18 at 06:28; Status DC Lidocaine HCl (Lidocaine Pf 2% Vial) 5 ml STK-MED ONCE .ROUTE ; Start 12/23/18 at 06:28; Stop 12/23/18 at 06:28; Status DC Fentanyl Citrate (Fentanyl 2ml Vial) 100 mcg STK-MED ONCE .ROUTE ; Start 12/23/18 at 06:28; Stop 12/23/18 at 06:28; Status DC Rocuronium [place] (Zemuron) 50 mg STK-MED ONCE .ROUTE ; Start 12/23/18 at 06:28; Stop 12/23/18 at 06:28; Status DC Heparin Sodium (Porcine) 5000 unit/Sodium Chloride 505 ml @ 505 mls/hr 1X ONCE IRR ; Start 12/23/18 at 07:30; Stop 12/23/18 at 08:29; Status DC Cefazolin Sodium 1 gm/Sodium Chloride 500 ml @ 500 mls/hr 1X ONCE IRR Last administered on 12/23/18at 08:33; Start 12/23/18 at 07:30; Stop 12/23/18 at 08:29; Status DC Lidocaine HCl 16 ml/Sodium Bicarbonate 4 meq/ Miscellaneous 20 ml @ 20 mls/hr 1X ONCE ID Last administered on 12/23/18at 08:33; Start 12/23/18 at 07:30; Stop 12/23/18 at 08:29; Status DC Ondansetron HCl (Zofran) 4 mg PRN Q6HRS PRN IV NAUSEA/VOMITING; Start 12/23/18 at 07:30; Stop 12/24/18 at 07:29; Status DC Fentanyl Citrate (Fentanyl 2ml Vial) 25 mcg PRN Q5MIN PRN IV MILD PAIN 1-3; Start 12/23/18 at 07:30; Stop 12/24/18 at 07:29; Status DC Fentanyl Citrate (Fentanyl 2ml Vial) 50 mcg PRN Q5MIN PRN IV MODERATE TO SEVERE PAIN; Start 12/23/18 at 07:30; Stop 12/24/18 at 07:29; Status DC Morphine Sulfate (Morphine Sulfate) 1 mg PRN Q10MIN PRN IV SEVERE PAIN 7-10; Start 12/23/18 at 07:30; Stop 12/24/18 at 07:29; Status DC Ringer's Solution 1,000 ml @ 30 mls/hr Q24H IV ; Start 12/23/18 at 07:21; Stop 12/23/18 at 19:20; Status DC Lidocaine HCl (Xylocaine-Mpf 1% 2ml Vial) 2 ml PRN 1X PRN ID PRIOR TO IV START; Start 12/23/18 at 07:30; Stop 12/24/18 at 07:29; Status DC Hydromorphone HCl (Dilaudid) 0.5 mg PRN Q10MIN PRN IV SEV PAIN, Second choice; Start 12/23/18 at 07:30; Stop 12/24/18 at 07:29; Status DC Prochlorperazine Edisylate (Compazine) 5 mg PACU PRN PRN IV NAUSEA, MRX1; Start 12/23/18 at 07:30; Stop 12/24/18 at 07:29; Status DC Succinylcholine Chloride (Anectine) 200 mg STK-MED ONCE .ROUTE ; Start 12/23/18 at 07:45; Stop 12/23/18 at 07:46; Status DC Fentanyl Citrate (Fentanyl 2ml Vial) 100 mcg STK-MED ONCE .ROUTE ; Start 12/23/18 at 08:24; Stop 12/23/18 at 08:24; Status DC Labetalol HCl (Normodyne Iv Push) 10 mg 1X ONCE IVP ; Start 12/23/18 at 08:30; Stop 12/23/18 at 08:31; Status DC Phenylephrine HCl (Cheko-Synephrine Inj) 10 mg STK-MED ONCE .ROUTE ; Start 12/23/18 at 08:48; Stop 12/23/18 at 08:48; Status DC Iohexol (Omnipaque 300 Mg/ml) 50 ml STK-MED ONCE .ROUTE Last administered on 12/23/18at 08:33; Start 12/23/18 at 09:05; Stop 12/23/18 at 09:05; Status DC Hydrocortisone Sodium Succinate (Solu-CORTEF) 100 mg STK-MED ONCE .ROUTE ; Start 12/23/18 at 09:06; Stop 12/23/18 at 09:06; Status DC Dexamethasone Sodium Phosphate (Decadron) 4 mg STK-MED ONCE .ROUTE ; Start 12/23/18 at 09:06; Stop 12/23/18 at 09:06; Status DC Ondansetron HCl (Zofran) 4 mg STK-MED ONCE .ROUTE ; Start 12/23/18 at 09:06; Stop 12/23/18 at 09:06; Status DC Famotidine (Pepcid Vial) 20 mg STK-MED ONCE .ROUTE ; Start 12/23/18 at 09:06; Stop 12/23/18 at 09:07; Status DC Neostigmine Methylsulfate (Neostigmine Methylsulfate) 5 mg STK-MED ONCE .ROUTE ; Start 12/23/18 at 09:10; Stop 12/23/18 at 09:10; Status DC Glycopyrrolate (Robinul) 1 mg STK-MED ONCE .ROUTE ; Start 12/23/18 at 09:10; Stop 12/23/18 at 09:11; Status DC Heparin Sodium (Porcine) (Heparin Sodium) 10,000 unit STK-MED ONCE .ROUTE ; Start 12/23/18 at 09:23; Stop 12/23/18 at 09:23; Status DC Iohexol (Omnipaque 300 Mg/ml) 50 ml STK-MED ONCE .ROUTE Last administered on 12/23/18at 08:33; Start 12/23/18 at 09:28; Stop 12/23/18 at 09:28; Status DC Sevoflurane (Ultane) 90 ml STK-MED ONCE IH ; Start 12/23/18 at 09:44; Stop 12/23/18 at 09:44; Status DC Hydrocortisone Sodium Succinate (Solu-CORTEF) 100 mg 1X ONCE IV ; Start 12/23/18 at 11:00; Stop 12/23/18 at 11:15; Status DC Labetalol HCl (Normodyne Iv Push) 5 mg PRN Q10MIN PRN IVP HYPERTENSION Last administered on 12/23/18at 11:24; Start 12/23/18 at 11:30; Stop 12/25/18 at 10:27; Status DC Potassium Chloride/Dextrose/ Sod Cl 1,000 ml @ 125 mls/hr Q8H IV Last administered on 12/24/18at 08:24; Start 12/23/18 at 12:00; Stop 12/24/18 at 09:51; Status DC Potassium Chloride/Dextrose/ Sod Cl 1,000 ml @ 125 mls/hr Q8H IV Last administered on 12/25/18at 06:44; Start 12/24/18 at 10:30; Stop 12/25/18 at 10:27; Status DC Clopidogrel Bisulfate (Plavix) 75 mg 1X ONCE PO ; Start 12/25/18 at 09:15; Stop 12/25/18 at 09:16; Status DC Amlodipine Besylate (Norvasc) 5 mg DAILY PO Last administered on 12/26/18at 10:08; Start 12/25/18 at 12:00; Stop 12/26/18 at 10:26; Status DC Atorvastatin Calcium (Lipitor) 20 mg QHS PO Last administered on 12/31/18at 21:08; Start 12/25/18 at 21:00 Metoprolol Succinate (Toprol Xl) 25 mg DAILY PO Last administered on 01/01/19at 08:19; Start 12/25/18 at 11:00 Acetaminophen (Tylenol) 650 mg PRN Q6HRS PRN PO MILD PAIN / TEMP; Start 12/25/18 at 10:30 Sodium Chloride 1,000 ml @ 60 mls/hr [id number] IV Last administered on 12/27/18at 09:49; Start 12/25/18 at 10:30; Stop 12/27/18 at 19:41; Status DC Acetaminophen/ Hydrocodone Bitart (Lortab 5/325) 1 tab PRN Q4HRS PRN PO SEVERE PAIN; Start 12/25/18 at 10:45 Febuxostat (Uloric) 40 mg DAILY PO Last administered on 01/01/19at 08:19; Start 12/26/18 at 09:00 Clopidogrel Bisulfate (Plavix) 75 mg DAILYWBKFT PO Last administered on 01/01/19at 08:18; Start 12/26/18 at 08:00 Warfarin Sodium (Coumadin Per Pharmacy) 1 each PRN DAILY PRN MC SEE COMMENTS Last administered on 12/31/18at 11:14; Start 12/26/18 at 08:00 Warfarin Sodium (Coumadin) 4 mg 1X WARF ONCE PO ; Start 12/25/18 at 16:47; Stop 12/25/18 at 16:48; Status DC Amoxicillin/ Clavulanate Potassium (Augmentin 875/ 125mg) 1 tab BID PO Last administered on 12/29/18at 08:17; Start 12/26/18 at 09:00; Stop 12/29/18 at 12:00; Status DC Lactobacillus Rhamnosus (Culturelle) 1 cap BID PO Last administered on 01/01/19at 08:18; Start 12/26/18 at 12:00 Amlodipine Besylate (Norvasc) 10 mg DAILY PO Last administered on 01/01/19at 08:17; Start 12/27/18 at 09:00 Warfarin Sodium (Coumadin) 5 mg DAILY16 PO Last administered on 12/26/18at 16:49; Start 12/26/18 at 16:00; Stop 12/27/18 at 12:28; Status DC Amlodipine Besylate (Norvasc) 5 mg 1X ONCE PO ; Start 12/26/18 at 10:30; Stop 12/26/18 at 16:06; Status DC Pantoprazole Sodium (Protonix) 40 mg DAILYAC PO Last administered on 01/01/19 08:19; Start 12/26/18 at 11:00 Amlodipine Besylate (Norvasc) 5 mg 1X ONCE PO Last administered on 12/26/18at 16:48; Start 12/26/18 at 16:15; Stop 12/26/18 at 16:16; Status DC Amlodipine Besylate (Norvasc) 5 mg STK-MED ONCE .ROUTE ; Start 12/26/18 at 16:08; Stop 12/26/18 at 16:09; Status DC Potassium Chloride (Klor-Con) 20 meq 1X ONCE PO Last administered on 12/27/18at 13:13; Start 12/27/18 at 10:30; Stop 12/27/18 at 10:31; Status DC Losartan Potassium (Cozaar) 50 mg DAILY PO Last administered on 01/01/19 08:18; Start 12/27/18 at 11:00 Warfarin Sodium (Coumadin) 6 mg 1X WARF ONCE PO Last administered on 12/27/18at 16:35; Start 12/27/18 at 16:00; Stop 12/27/18 at 16:01; Status DC Warfarin Sodium (Coumadin) 7.5 mg 1X WARF ONCE PO Last administered on 12/28/18 16:51; Start 12/28/18 at 16:00; Stop 12/28/18 at 16:01; Status DC Magnesium Oxide (Magnesium Oxide) 400 mg TID PO Last administered on 01/01/19 08:17; Start 12/29/18 at 09:00 Warfarin Sodium (Coumadin) 7.5 mg 1X WARF ONCE PO Last administered on 12/29/18at 16:03; Start 12/29/18 at 16:00; Stop 12/29/18 at 16:01; Status DC Warfarin Sodium (Coumadin) 9 mg 1X WARF ONCE PO Last administered on 12/30/18at 16:54; Start 12/30/18 at 16:00; Stop 12/30/18 at 16:01; Status DC Magnesium Sulfate 100 ml @ 25 mls/hr 1X ONCE IV Last administered on 12/30/18 09:27; Start 12/30/18 at 09:00; Stop 12/30/18 at 12:59; Status DC Throat Lozenges (Cepacol Sore Throat Lozenge) 1 brian PRN Q2HRS PRN PO SORE THROAT Last administered on 12/31/18at 11:54; Start 12/31/18 at 09:30 Warfarin Sodium (Coumadin) 7.5 mg 1X WARF ONCE PO Last administered on 12/31/18at 15:54; Start 12/31/18 at 16:00; Stop 12/31/18 at 16:01; Status DC Magnesium Sulfate 50 ml @ 25 mls/hr 1X ONCE IV Last administered on 12/31/18at 11:54; Start 12/31/18 at 12:30; Stop 12/31/18 at 14:29; Status DC Active Scripts Active Reported Losartan Potassium 100 Mg Tablet 100 Mg PO DAILY Multi-Vitamin Daily (Multivitamin) 1 Each Tablet 1 Tab PO DAILY 30 Days Coumadin (Warfarin Sodium) 4 Mg Tablet 3.5 Mg PO DAILY Atorvastatin Calcium 20 Mg Tablet 1 Tab PO DAILY Toprol Xl (Metoprolol Succinate) 50 Mg Tab.er.24h 25 Mg PO DAILY Amlodipine Besylate 10 Mg Tablet 10 Mg PO DAILY Uloric (Febuxostat) 40 Mg Tablet 1 Tab PO DAILY Detrol La (Tolterodine Tartrate) 4 Mg Cap.er.24h 1 Cap PO DAILY Vitals/I & O Vital Sign - Last 24 Hours 12/31/18 12/31/18 12/31/18 12/31/18 10:25 14:29 19:39 19:50 Temp 97.8 97.6 98.0 97.8 97.6 98.0 Pulse 72 76 79 Resp 16 16 16 B/P (MAP) 143/72 (95) 155/81 (105) 146/68 (94) Pulse Ox 99 99 98 O2 Delivery Room Air Room Air Room Air Room Air 12/31/18 01/01/19 01/01/19 01/01/19 22:46 02:37 02:59 07:00 Temp 98.1 97.9 98.1 98.1 97.9 98.1 Pulse 113 70 76 Resp 16 18 18 B/P (MAP) 169/84 (112) 179/82 (114) 179/82 142/68 (92) Pulse Ox 99 95 97 O2 Delivery Room Air Room Air Room Air 01/01/19 01/01/19 01/01/19 08:17 08:18 08:19 Pulse 72 74 70 B/P (MAP) 142/68 142/68 142/68 Intake and Output 12/31/18 12/31/18 01/01/19 15:00 23:00 07:00 Intake Total 480 ml 500 ml 250 ml Balance 480 ml 500 ml 250 ml ERIKA NELSON MD Jan 01, 2019 09:45
--- NOTE | 2019-01-01 10:33 | PDOC ---
PROGRESS NOTES Subjective Subjective feels well. bowels are okay. inar 2.3. magnesium 1.6 creatinine 1.5. Objective Objective Vital Signs Date Time Temp Pulse Resp B/P (MAP) Pulse Ox O2 Delivery O2 Flow Rate FiO2 01/01/19 08:19 70 142/68 01/01/19 07:00 98.1 18 97 Room Air 98.1 12/30/18 08:00 4.0 Intake and Output 01/01/19 06:59 Intake Total 1230 ml Balance 1230 ml Intake Oral 1230 ml # Voids 5 # Bowel Movements 2 Physical Exam Abdomen: Normal bowel sounds, Soft, No tenderness Heart: Normal S1, Normal S2 Extremities: No edema General: Alert HEENT: Atraumatic Lungs: Clear to auscultation Neuro: Normal speech Psych/Mental Status: Mental status NL Skin: No rashes Assessment Assessment Problemspartial small-bowel obstruction resolved 2. Acute kidney injury better top of chronic kidney disease stage 3. baseline creatinine 1.4. 3. Hypertension.bp high 4. Hyperlipidemia. 5. Chronic atrial fibrillation osteoarthritis left knee treated with steroid injection 6. Chronic gout. 7. History of a left nephrectomy. left popliteal and left iliac thromboembolectomy with left iliac artery angioplasty and stent mild leukocytosis resolved hypomagnesemia Medical Problems: (1) Epigastric pain Status: Acute (2) Epigastric pain Status: Acute (3) Nausea Status: Acute (4) Nausea Status: Acute (5) Small bowel obstruction Status: Acute Plan Plan of Care d/c iv heparin iv magnesium today dismiss today with home health continue coumadin Comment Review of Relevant I have reviewed the following items rubia (where applicable) has been applied. Labs Laboratory Tests Test 12/31/18 04:45 01/01/19 06:15 White Blood Count 7.0 x10^3/uL (4.0-11.0) Red Blood Count 2.98 x10^6/uL (3.50-5.40) Hemoglobin 9.2 g/dL (12.0-15.5) Hematocrit 28.2 % (36.0-47.0) Mean Corpuscular Volume 95 fL (79-100) Mean Corpuscular Hemoglobin 31 pg (25-35) Mean Corpuscular Hemoglobin Concent 33 g/dL (31-37) Red Cell Distribution Width 14.3 % (11.5-14.5) Platelet Count 234 x10^3/uL (140-400) Prothrombin Time 21.2 SEC (11.7-14.0) 25.0 SEC (11.7-14.0) Prothromb Time International Ratio 1.9 (0.8-1.1) 2.3 (0.8-1.1) Heparin Anti-Xa Act, Unfractionated 0.67 IU/mL (0.30-0.70) 0.69 IU/mL (0.30-0.70) Sodium Level 144 mmol/L (136-145) 144 mmol/L (136-145) Potassium Level 3.7 mmol/L (3.5-5.1) 4.0 mmol/L (3.5-5.1) Chloride Level 110 mmol/L (98-107) 110 mmol/L (98-107) Carbon Dioxide Level 24 mmol/L (21-32) 25 mmol/L (21-32) Anion Gap 10 (6-14) 9 (6-14) Blood Urea Nitrogen 20 mg/dL (7-20) 18 mg/dL (7-20) Creatinine 1.7 mg/dL (0.6-1.0) 1.5 mg/dL (0.6-1.0) Estimated GFR (Cockcroft-Gault) 34.9 40.3 Glucose Level 89 mg/dL (70-99) 94 mg/dL (70-99) Calcium Level 8.7 mg/dL (8.5-10.1) 8.5 mg/dL (8.5-10.1) Magnesium Level 1.6 mg/dL (1.8-2.4) 1.6 mg/dL (1.8-2.4) Laboratory Tests Test 01/01/19 06:15 Prothrombin Time 25.0 SEC (11.7-14.0) Prothromb Time International Ratio 2.3 (0.8-1.1) Heparin Anti-Xa Act, Unfractionated 0.69 IU/mL (0.30-0.70) Sodium Level 144 mmol/L (136-145) Potassium Level 4.0 mmol/L (3.5-5.1) Chloride Level 110 mmol/L (98-107) Carbon Dioxide Level 25 mmol/L (21-32) Anion Gap 9 (6-14) Blood Urea Nitrogen 18 mg/dL (7-20) Creatinine 1.5 mg/dL (0.6-1.0) Estimated GFR (Cockcroft-Gault) 40.3 Glucose Level 94 mg/dL (70-99) Calcium Level 8.5 mg/dL (8.5-10.1) Magnesium Level 1.6 mg/dL (1.8-2.4) Microbiology 12/18/18 Urine Culture - Final, Complete 12/18/18 Urine Culture Result 1 (ALEJANDRINA) - Final, Complete Medications Current Medications Ondansetron HCl (Zofran) 4 mg 1X ONCE IM ; Start 12/16/18 at 09:30; Stop 12/16/18 at 09:31; Status DC Fentanyl Citrate (Fentanyl 2ml Vial) 75 mcg 1X ONCE IVP Last administered on 12/16/18at 09:46; Start 12/16/18 at 09:45; Stop 12/16/18 at 09:46; Status DC Ondansetron HCl (Zofran) 4 mg 1X ONCE IVP Last administered on 12/16/18at 09:51; Start 12/16/18 at 10:00; Stop 12/16/18 at 10:01; Status DC Sodium Chloride 1,000 ml @ 1,000 mls/hr 1X ONCE IV Last administered on 12/16/18at 10:40; Start 12/16/18 at 10:15; Stop 12/16/18 at 11:14; Status DC Clonidine HCl (Catapres) 0.1 mg 1X ONCE PO Last administered on 12/16/18at 15:12; Start 12/16/18 at 14:15; Stop 12/16/18 at 14:16; Status DC Fentanyl Citrate (Fentanyl 2ml Vial) 75 mcg 1X ONCE IVP ; Start 12/16/18 at 15:15; Stop 12/16/18 at 15:16; Status DC Ondansetron HCl (Zofran) 4 mg PRN Q8HRS PRN IV NAUSEA/VOMITING; Start 12/16/18 at 15:15; Stop 12/16/18 at 17:10; Status DC Fentanyl Citrate (Fentanyl 2ml Vial) 50 mcg PRN Q1HR PRN IV PAIN Last administered on 12/17/18at 07:28; Start 12/16/18 at 15:15; Stop 12/17/18 at 1 5:14; Status DC Sodium Chloride 1,000 ml @ 125 mls/hr Q8H IV ; Start 12/16/18 at 15:10; Stop 12/16/18 at 17:26; Status DC Acetaminophen (Tylenol) 650 mg PRN Q4HRS PRN PO FEVER; Start 12/16/18 at 15:15; Stop 12/17/18 at 15:14; Status DC Potassium Chloride/Dextrose/ Sod Cl 1,000 ml @ 100 mls/hr Q10H IV Last administered on 12/18/18at 01:27; Start 12/16/18 at 17:00; Stop 12/18/18 at 10:34; Status DC Ondansetron HCl (Zofran) 4 mg PRN Q6HRS PRN IVP NAUSEA/VOMITING Last administered on 12/18/18at 21:17; Start 12/16/18 at 17:00 Hydralazine HCl (Apresoline Inj) 10 mg PRN Q6HRS PRN IVP ELEVATED BP, SEE COMMENTS Last administered on 01/01/19at 02:59; Start 12/17/18 at 01:00 Enoxaparin Sodium (Lovenox 100mg Syringe) 100 mg DAILY SQ Last administered on 12/17/18at 12:49; Start 12/17/18 at 10:30; Stop 12/19/18 at 09:14; Status DC Info (Anti-Coagulation Monitoring By Pharmacy) 1 each PRN DAILY PRN MC SEE COMMENTS Last administered on 12/30/18at 08:13; Start 12/17/18 at 10:15 Pantoprazole Sodium (PROTONIX VIAL for IV PUSH) 40 mg DAILYAC IVP Last administered on 12/25/18at 06:23; Start 12/17/18 at 10:30; Stop 12/25/18 at 10:27; Status DC Acetaminophen (Tylenol Supp) 650 mg PRN Q6HRS PRN [place] HEADACHE / TEMP; Start 12/17/18 at 10:00; Stop 12/25/18 at 10:27; Status DC Fentanyl Citrate (Fentanyl 2ml Vial) 50 mcg PRN Q4HRS PRN IVP PAIN Last administered on 12/23/18at 22:01; Start 12/17/18 at 10:00; Stop 12/27/18 at 09:54; Status DC Insulin Human Lispro (HumaLOG) 0-6 UNITS BG 300-399... Q6HRS SQ ; Start 12/17/18 at 12:00; Stop 12/17/18 at 10:24; Status DC Ceftriaxone Sodium (Rocephin) 1 gm Q24H IVP Last administered on 12/21/18at 12:42; Start 12/18/18 at 11:00; Stop 12/22/18 at 10:07; Status DC Dextrose/Sodium Chloride 1,000 ml @ 150 mls/hr Q6H40M IV Last administered on 12/20/18at 03:00; Start 12/18/18 at 10:30; Stop 12/20/18 at 09:52; Status DC Bupivacaine HCl/ Epinephrine Bitart (Sensorcain-Epi 0.5%-1:[id number] Mpf) 30 ml 1X ONCE INJ ; Start 12/18/18 at 15:00; Stop 12/18/18 at 15:01; Status Cancel Bupivacaine HCl/ Epinephrine Bitart (Sensorcain-Epi 0.5%-1:[id number] Mpf) 30 ml 1X ONCE INJ Last administered on 12/19/18at 06:00; Start 12/19/18 at 06:00; Stop 12/19/18 at 06:01; Status DC Ondansetron HCl (Zofran) 4 mg PRN Q6HRS PRN IV NAUSEA/VOMITING; Start 12/19/18 at 07:00; Stop 12/20/18 at 06:59; Status DC Fentanyl Citrate (Fentanyl 2ml Vial) 25 mcg PRN Q5MIN PRN IV MILD PAIN 1-3; Start 12/19/18 at 07:00; Stop 12/20/18 at 06:59; Status DC Fentanyl Citrate (Fentanyl 2ml Vial) 50 mcg PRN Q5MIN PRN IV MODERATE TO SEVERE PAIN; Start 12/19/18 at 07:00; Stop 12/20/18 at 06:59; Status DC Morphine Sulfate (Morphine Sulfate) 1 mg PRN Q10MIN PRN IV SEVERE PAIN 7-10; Start 12/19/18 at 07:00; Stop 12/20/18 at 06:59; Status DC Ringer's Solution 1,000 ml @ 30 mls/hr Q24H IV ; Start 12/19/18 at 07:00; Stop 12/19/18 at 18:59; Status DC Lidocaine HCl (Xylocaine-Mpf 1% 2ml Vial) 2 ml PRN 1X PRN ID PRIOR TO IV START; Start 12/19/18 at 07:00; Stop 12/20/18 at 06:59; Status DC Hydromorphone HCl (Dilaudid) 0.5 mg PRN Q10MIN PRN IV SEV PAIN, Second choice; Start 12/19/18 at 07:00; Stop 12/20/18 at 06:59; Status DC Prochlorperazine Edisylate (Compazine) 5 mg PACU PRN PRN IV NAUSEA, MRX1; Start 12/19/18 at 07:00; Stop 12/20/18 at 06:59; Status DC Phytonadione 10 mg/Dextrose 51 ml @ 102 mls/hr 1X ONCE IV Last administered on 12/19/18at 10:37; Start 12/19/18 at 09:15; Stop 12/19/18 at 09:44; Status DC Potassium Chloride/Dextrose/ Sod Cl 1,000 ml @ 150 mls/hr Q6H40M IV Last administered on 12/21/18at 03:26; Start 12/20/18 at 11:00; Stop 12/21/18 at 11:06; Status DC Lidocaine HCl (Lidocaine Pf 2% Vial) 5 ml STK-MED ONCE .ROUTE ; Start 12/20/18 at 11:14; Stop 12/20/18 at 11:14; Status DC Neostigmine Methylsulfate (Bloxiverz) 10 mg STK-MED ONCE .ROUTE ; Start 12/20/18 at 11:16; Stop 12/20/18 at 11:17; Status DC Rocuronium [place] (Zemuron) 50 mg STK-MED ONCE .ROUTE ; Start 12/20/18 at 11:17; Stop 12/20/18 at 11:17; Status DC Fentanyl Citrate (Fentanyl 2ml Vial) 100 mcg STK-MED ONCE .ROUTE ; Start 12/20/18 at 11:17; Stop 12/20/18 at 11:18; Status DC Midazolam HCl (Versed) 2 mg STK-MED ONCE .ROUTE ; Start 12/20/18 at 11:17; Stop 12/20/18 at 11:18; Status DC Glycopyrrolate (Robinul) 1 mg STK-MED ONCE .ROUTE ; Start 12/20/18 at 11:17; Stop 12/20/18 at 11:18; Status DC Succinylcholine Chloride (Anectine) 200 mg STK-MED ONCE .ROUTE ; Start 12/20/18 at 11:21; Stop 12/20/18 at 11:21; Status DC Diclofenac Sodium (Voltaren) 1 marilyn QID TP Last administered on 01/01/19at 08:19; Start 12/21/18 at 13:00 Dextrose/Sodium Chloride 1,000 ml @ 125 mls/hr Q8H IV Last administered on 12/23/18at 03:30; Start 12/21/18 at 11:15; Stop 12/23/18 at 11:59; Status DC Methylprednisolone Acetate (DEPO-Medrol 40MG VIAL) 40 mg 1X ONCE IM Last administered on 12/21/18at 12:00; Start 12/21/18 at 12:00; Stop 12/21/18 at 12:01; Status DC Bupivacaine HCl (Sensorcaine-Mpf 0.25%) 10 ml 1X ONCE IJ Last administered on 12/21/18at 12:00; Start 12/21/18 at 12:00; Stop 12/21/18 at 12:01; Status DC Piperacillin Sod/ Tazobactam Sod 3.375 gm/Sodium Chloride 50 ml @ 100 mls/hr Q6HRS IV Last administered on 12/26/18at 05:37; Start 12/22/18 at 12:00; Stop 12/26/18 at 08:41; Status DC Heparin Sodium/ Dextrose 500 ml @ 32 mls/min CONT PRN IV SEE PROTOCOL; Start 12/22/18 at 14:30; Stop 12/22/18 at 20:12; Status DC Heparin Sodium (Porcine) (Heparin Sodium) 3,050 unit PRN Q6HRS PRN IV FOR UFH LEVEL LESS THAN 0.2; Start 12/22/18 at 14:30; Stop 12/22/18 at 20:10; Status DC Heparin Sodium (Porcine) (Heparin Sodium) 1,550 unit PRN Q6HRS PRN IV FOR UFH LEVEL 0.2 - 0.29; Start 12/22/18 at 14:30; Stop 12/22/18 at 20:10; Status DC Heparin Sodium (Porcine) (Heparin Sodium) 5,000 unit Q8HRS SQ Last administered on 12/22/18at 22:11; Start 12/22/18 at 22:00; Stop 12/23/18 at 06:10; Status DC Fentanyl Citrate (Fentanyl 2ml Vial) 25 mcg 1X ONCE IVP Last administered on 12/23/18at 03:21; Start 12/23/18 at 03:30; Stop 12/23/18 at 03:31; Status DC Heparin Sodium (Porcine) (Heparin Sodium) 5,000 unit 1X STAT IV ; Start 12/23/18 at 05:58; Stop 12/23/18 at 05:59; Status UNV Heparin Sodium/ Dextrose 500 ml @ 0 mls/hr CONT PRN IV SEE I/O RECORD; Start 12/23/18 at 06:00; Status UNV Heparin Sodium (Porcine) (Heparin Sodium) 5,000 unit 1X ONCE IV Last administered on 12/23/18at 06:16; Start 12/23/18 at 06:30; Stop 12/23/18 at 06:31; Status DC Heparin Sodium/ Dextrose 500 ml @ 24 mls/hr CONT PRN PRN IV DVT Last administered on 12/31/18at 15:53; Start 12/23/18 at 06:30 Heparin Sodium (Porcine) (Heparin Sodium) 3,050 unit PRN Q6HRS PRN IV FOR UFH LEVEL LESS THAN 0.2 Last administered on 12/27/18at 00:08; Start 12/23/18 at 06:15 Heparin Sodium (Porcine) (Heparin Sodium) 1,550 unit PRN Q6HRS PRN IV FOR UFH LEVEL 0.2 - 0.29 Last administered on 12/29/18at 06:36; Start 12/23/18 at 06:15 Propofol 20 ml @ As Directed STK-MED ONCE IV ; Start 12/23/18 at 06:28; Stop 12/23/18 at 06:28; Status DC Lidocaine HCl (Lidocaine Pf 2% Vial) 5 ml STK-MED ONCE .ROUTE ; Start 12/23/18 at 06:28; Stop 12/23/18 at 06:28; Status DC Fentanyl Citrate (Fentanyl 2ml Vial) 100 mcg STK-MED ONCE .ROUTE ; Start 12/23/18 at 06:28; Stop 12/23/18 at 06:28; Status DC Rocuronium [place] (Zemuron) 50 mg STK-MED ONCE .ROUTE ; Start 12/23/18 at 06:28; Stop 12/23/18 at 06:28; Status DC Heparin Sodium (Porcine) 5000 unit/Sodium Chloride 505 ml @ 505 mls/hr 1X ONCE IRR ; Start 12/23/18 at 07:30; Stop 12/23/18 at 08:29; Status DC Cefazolin Sodium 1 gm/Sodium Chloride 500 ml @ 500 mls/hr 1X ONCE IRR Last administered on 12/23/18at 08:33; Start 12/23/18 at 07:30; Stop 12/23/18 at 08:29; Status DC Lidocaine HCl 16 ml/Sodium Bicarbonate 4 meq/ Miscellaneous 20 ml @ 20 mls/hr 1X ONCE ID Last administered on 12/23/18at 08:33; Start 12/23/18 at 07:30; Stop 12/23/18 at 08:29; Status DC Ondansetron HCl (Zofran) 4 mg PRN Q6HRS PRN IV NAUSEA/VOMITING; Start 12/23/18 at 07:30; Stop 12/24/18 at 07:29; Status DC Fentanyl Citrate (Fentanyl 2ml Vial) 25 mcg PRN Q5MIN PRN IV MILD PAIN 1-3; Start 12/23/18 at 07:30; Stop 12/24/18 at 07:29; Status DC Fentanyl Citrate (Fentanyl 2ml Vial) 50 mcg PRN Q5MIN PRN IV MODERATE TO SEVERE PAIN; Start 12/23/18 at 07:30; Stop 12/24/18 at 07:29; Status DC Morphine Sulfate (Morphine Sulfate) 1 mg PRN Q10MIN PRN IV SEVERE PAIN 7-10; Start 12/23/18 at 07:30; Stop 12/24/18 at 07:29; Status DC Ringer's Solution 1,000 ml @ 30 mls/hr Q24H IV ; Start 12/23/18 at 07:21; Stop 12/23/18 at 19:20; Status DC Lidocaine HCl (Xylocaine-Mpf 1% 2ml Vial) 2 ml PRN 1X PRN ID PRIOR TO IV START; Start 12/23/18 at 07:30; Stop 12/24/18 at 07:29; Status DC Hydromorphone HCl (Dilaudid) 0.5 mg PRN Q10MIN PRN IV SEV PAIN, Second choice; Start 12/23/18 at 07:30; Stop 12/24/18 at 07:29; Status DC Prochlorperazine Edisylate (Compazine) 5 mg PACU PRN PRN IV NAUSEA, MRX1; Start 12/23/18 at 07:30; Stop 12/24/18 at 07:29; Status DC Succinylcholine Chloride (Anectine) 200 mg STK-MED ONCE .ROUTE ; Start 12/23/18 at 07:45; Stop 12/23/18 at 07:46; Status DC Fentanyl Citrate (Fentanyl 2ml Vial) 100 mcg STK-MED ONCE .ROUTE ; Start 12/23/18 at 08:24; Stop 12/23/18 at 08:24; Status DC Labetalol HCl (Normodyne Iv Push) 10 mg 1X ONCE IVP ; Start 12/23/18 at 08:30; Stop 12/23/18 at 08:31; Status DC Phenylephrine HCl (Cheko-Synephrine Inj) 10 mg STK-MED ONCE .ROUTE ; Start 12/23/18 at 08:48; Stop 12/23/18 at 08:48; Status DC Iohexol (Omnipaque 300 Mg/ml) 50 ml STK-MED ONCE .ROUTE Last administered on 12/23/18at 08:33; Start 12/23/18 at 09:05; Stop 12/23/18 at 09:05; Status DC Hydrocortisone Sodium Succinate (Solu-CORTEF) 100 mg STK-MED ONCE .ROUTE ; Start 12/23/18 at 09:06; Stop 12/23/18 at 09:06; Status DC Dexamethasone Sodium Phosphate (Decadron) 4 mg STK-MED ONCE .ROUTE ; Start 12/23/18 at 09:06; Stop 12/23/18 at 09:06; Status DC Ondansetron HCl (Zofran) 4 mg STK-MED ONCE .ROUTE ; Start 12/23/18 at 09:06; Stop 12/23/18 at 09:06; Status DC Famotidine (Pepcid Vial) 20 mg STK-MED ONCE .ROUTE ; Start 12/23/18 at 09:06; Stop 12/23/18 at 09:07; Status DC Neostigmine Methylsulfate (Neostigmine Methylsulfate) 5 mg STK-MED ONCE .ROUTE ; Start 12/23/18 at 09:10; Stop 12/23/18 at 09:10; Status DC Glycopyrrolate (Robinul) 1 mg STK-MED ONCE .ROUTE ; Start 12/23/18 at 09:10; Stop 12/23/18 at 09:11; Status DC Heparin Sodium (Porcine) (Heparin Sodium) 10,000 unit STK-MED ONCE .ROUTE ; Start 12/23/18 at 09:23; Stop 12/23/18 at 09:23; Status DC Iohexol (Omnipaque 300 Mg/ml) 50 ml STK-MED ONCE .ROUTE Last administered on 12/23/18at 08:33; Start 12/23/18 at 09:28; Stop 12/23/18 at 09:28; Status DC Sevoflurane (Ultane) 90 ml STK-MED ONCE IH ; Start 12/23/18 at 09:44; Stop 12/23/18 at 09:44; Status DC Hydrocortisone Sodium Succinate (Solu-CORTEF) 100 mg 1X ONCE IV ; Start 12/23/18 at 11:00; Stop 12/23/18 at 11:15; Status DC Labetalol HCl (Normodyne Iv Push) 5 mg PRN Q10MIN PRN IVP HYPERTENSION Last administered on 12/23/18at 11:24; Start 12/23/18 at 11:30; Stop 12/25/18 at 10:27; Status DC Potassium Chloride/Dextrose/ Sod Cl 1,000 ml @ 125 mls/hr Q8H IV Last administered on 12/24/18at 08:24; Start 12/23/18 at 12:00; Stop 12/24/18 at 09:51; Status DC Potassium Chloride/Dextrose/ Sod Cl 1,000 ml @ 125 mls/hr Q8H IV Last administered on 12/25/18at 06:44; Start 12/24/18 at 10:30; Stop 12/25/18 at 10:27; Status DC Clopidogrel Bisulfate (Plavix) 75 mg 1X ONCE PO ; Start 12/25/18 at 09:15; Stop 12/25/18 at 09:16; Status DC Amlodipine Besylate (Norvasc) 5 mg DAILY PO Last administered on 12/26/18 10:08; Start 12/25/18 at 12:00; Stop 12/26/18 at 10:26; Status DC Atorvastatin Calcium (Lipitor) 20 mg QHS PO Last administered on 12/31/18 21:08; Start 12/25/18 at 21:00 Metoprolol Succinate (Toprol Xl) 25 mg DAILY PO Last administered on 01/01/19 08:19; Start 12/25/18 at 11:00 Acetaminophen (Tylenol) 650 mg PRN Q6HRS PRN PO MILD PAIN / TEMP; Start 12/25/18 at 10:30 Sodium Chloride 1,000 ml @ 60 mls/hr [id number] IV Last administered on 12/27/18 09:49; Start 12/25/18 at 10:30; Stop 12/27/18 at 19:41; Status DC Acetaminophen/ Hydrocodone Bitart (Lortab 5/325) 1 tab PRN Q4HRS PRN PO SEVERE PAIN; Start 12/25/18 at 10:45 Febuxostat (Uloric) 40 mg DAILY PO Last administered on 01/01/19 08:19; Start 12/26/18 at 09:00 Clopidogrel Bisulfate (Plavix) 75 mg DAILYWBKFT PO Last administered on 01/01/19 08:18; Start 12/26/18 at 08:00 Warfarin Sodium (Coumadin Per Pharmacy) 1 each PRN DAILY PRN MC SEE COMMENTS Last administered on 12/31/18at 11:14; Start 12/26/18 at 08:00 Warfarin Sodium (Coumadin) 4 mg 1X WARF ONCE PO ; Start 12/25/18 at 16:47; Stop 12/25/18 at 16:48; Status DC Amoxicillin/ Clavulanate Potassium (Augmentin 875/ 125mg) 1 tab BID PO Last administered on 12/29/18at 08:17; Start 12/26/18 at 09:00; Stop 12/29/18 at 12:00; Status DC Lactobacillus Rhamnosus (Culturelle) 1 cap BID PO Last administered on 01/01/19 08:18; Start 12/26/18 at 12:00 Amlodipine Besylate (Norvasc) 10 mg DAILY PO Last administered on 01/01/19 08:17; Start 12/27/18 at 09:00 Warfarin Sodium (Coumadin) 5 mg DAILY16 PO Last administered on 12/26/18at 16:49; Start 12/26/18 at 16:00; Stop 12/27/18 at 12:28; Status DC Amlodipine Besylate (Norvasc) 5 mg 1X ONCE PO ; Start 12/26/18 at 10:30; Stop 12/26/18 at 16:06; Status DC Pantoprazole Sodium (Protonix) 40 mg DAILYAC PO Last administered on 01/01/19 08:19; Start 12/26/18 at 11:00 Amlodipine Besylate (Norvasc) 5 mg 1X ONCE PO Last administered on 12/26/18at 16:48; Start 12/26/18 at 16:15; Stop 12/26/18 at 16:16; Status DC Amlodipine Besylate (Norvasc) 5 mg STK-MED ONCE .ROUTE ; Start 12/26/18 at 16:08; Stop 12/26/18 at 16:09; Status DC Potassium Chloride (Klor-Con) 20 meq 1X ONCE PO Last administered on 12/27/18 13:13; Start 12/27/18 at 10:30; Stop 12/27/18 at 10:31; Status DC Losartan Potassium (Cozaar) 50 mg DAILY PO Last administered on 01/01/19 08:18; Start 12/27/18 at 11:00 Warfarin Sodium (Coumadin) 6 mg 1X WARF ONCE PO Last administered on 12/27/18 16:35; Start 12/27/18 at 16:00; Stop 12/27/18 at 16:01; Status DC Warfarin Sodium (Coumadin) 7.5 mg 1X WARF ONCE PO Last administered on 12/28/18at 16:51; Start 12/28/18 at 16:00; Stop 12/28/18 at 16:01; Status DC Magnesium Oxide (Magnesium Oxide) 400 mg TID PO Last administered on 01/01/19 08:17; Start 12/29/18 at 09:00 Warfarin Sodium (Coumadin) 7.5 mg 1X WARF ONCE PO Last administered on 12/29/18 16:03; Start 12/29/18 at 16:00; Stop 12/29/18 at 16:01; Status DC Warfarin Sodium (Coumadin) 9 mg 1X WARF ONCE PO Last administered on 12/30/18at 16:54; Start 12/30/18 at 16:00; Stop 12/30/18 at 16:01; Status DC Magnesium Sulfate 100 ml @ 25 mls/hr 1X ONCE IV Last administered on 12/30/18at 09:27; Start 12/30/18 at 09:00; Stop 12/30/18 at 12:59; Status DC Throat Lozenges (Cepacol Sore Throat Lozenge) 1 brian PRN Q2HRS PRN PO SORE THROAT Last administered on 12/31/18at 11:54; Start 12/31/18 at 09:30 Warfarin Sodium (Coumadin) 7.5 mg 1X WARF ONCE PO Last administered on 12/31/18at 15:54; Start 12/31/18 at 16:00; Stop 12/31/18 at 16:01; Status DC Magnesium Sulfate 50 ml @ 25 mls/hr 1X ONCE IV Last administered on 12/31/18at 11:54; Start 12/31/18 at 12:30; Stop 12/31/18 at 14:29; Status DC Active Scripts Active Reported Losartan Potassium 100 Mg Tablet 100 Mg PO DAILY Multi-Vitamin Daily (Multivitamin) 1 Each Tablet 1 Tab PO DAILY 30 Days Coumadin (Warfarin Sodium) 4 Mg Tablet 3.5 Mg PO DAILY Atorvastatin Calcium 20 Mg Tablet 1 Tab PO DAILY Toprol Xl (Metoprolol Succinate) 50 Mg Tab.er.24h 25 Mg PO DAILY Amlodipine Besylate 10 Mg Tablet 10 Mg PO DAILY Uloric (Febuxostat) 40 Mg Tablet 1 Tab PO DAILY Detrol La (Tolterodine Tartrate) 4 Mg Cap.er.24h 1 Cap PO DAILY Vitals/I & O Vital Sign - Last 24 Hours 12/31/18 12/31/18 12/31/18 12/31/18 14:29 19:39 19:50 22:46 Temp 97.6 98.0 98.1 97.6 98.0 98.1 Pulse 76 79 113 Resp 16 16 16 B/P (MAP) 155/81 (105) 146/68 (94) 169/84 (112) Pulse Ox 99 98 99 O2 Delivery Room Air Room Air Room Air Room Air 01/01/19 01/01/19 01/01/19 01/01/19 02:37 02:59 07:00 08:17 Temp 97.9 98.1 97.9 98.1 Pulse 70 76 72 Resp 18 18 B/P (MAP) 179/82 (114) 179/82 142/68 (92) 142/68 Pulse Ox 95 97 O2 Delivery Room Air Room Air 01/01/19 01/01/19 08:18 08:19 Pulse 74 70 B/P (MAP) 142/68 142/68 Intake and Output 12/31/18 12/31/18 01/01/19 14:59 22:59 06:59 Intake Total 480 ml 500 ml 250 ml Balance 480 ml 500 ml 250 ml LAURA CROOKS MD Jan 01, 2019 10:33
[2019-01-01] MEDS ORDERED: MAGN400T22 PO (10:40)
[2019-01-01] MEDS ORDERED: DICL100G18 TP (10:40)
[2019-01-01] MEDS ORDERED: METO-239 PO (10:40)
[2019-01-01] MEDS ORDERED: CLOP75TA PO (10:40)
--- NOTE | 2019-01-01 10:44 | SNU/HH DC ---
DISCHARGE WITH HOME HEALTH DISCHARGE INFORMATION: Discharge Date: Jan 01, 2019 Final Diagnosis: Problems partial small obstruction thromboembolectomy left popliteal and left iliac artery . chronic atrila fibillation Medical Problems: (1) Epigastric pain Status: Acute (2) Epigastric pain Status: Acute (3) Nausea Status: Acute (4) Nausea Status: Acute (5) Small bowel obstruction Status: Acute Condition on Discharge: Stable CODE STATUS: Code Status: Full HOME HEALTH: Face to Face: I certify this patient is under my care and that I, or a nurse practitioner or physician's events administrative assistant working with me, had a face to face encounter that meets the physician face to face encounter requirements with this patient on [01/01/19]. RN For Eval/Treatment: Yes Physical Therapy For: Evalulation/Treatment Occupational Therapy For: Evaluation/Treatment Pt Meets Homebound Status: Limited distance walking POST DISCHARGE ORDERS: Activity Instructions for Disc: No restrictions Weight Bearing Status after Di: No restrictions DIET AFTER DISCHARGE: Regular FOLLOW-UP: PCP to follow Home Health: dr. crooks Follow up with: dr. crooks next week Warfarin Follow UP: 01/03/19 CERTIFICATION STATEMENT: Certification Statement: Certification Statement: Based on the above finding, I certify that this patient is confined to the home and needs intermittent alf care, physical therapy and/or speech therapy, or continues to need occupational therapy.~ This patient is under my care, and I have initiated the establishment of the plan of care.~ This patient will be followed by myself or a community physician who will periodically review the plan of care. Home Meds Active Scripts Magnesium Oxide (MAG-OXIDE) 400 Mg Tablet, 400 MG PO TID for low magnsesium, #60 TAB Prov:LAURA CROOKS MD 01/01/19 Diclofenac Sodium (VOLTAREN) 100 Gm Gel..gram., 1 ALEJO TP QID for arthritis, #100 GM Prov:LAURA CROOKS MD 01/01/19 Metoprolol Succinate (METOPROLOL SUCCINATE ( XL )) 25 Mg Tab.er.24h, 25 MG PO DAILY for atrial fibrillation, #30 TAB.SR Prov:LAURA CROOKS MD 01/01/19 Clopidogrel Bisulfate (CLOPIDOGREL) 75 Mg Tablet, 75 MG PO DAILYWBKFT for embolus to LEFT LEG, #30 TAB Prov:LAURA CROOKS MD 01/01/19 Reported Medications Losartan Potassium (LOSARTAN POTASSIUM) 100 Mg Tablet, 100 MG PO DAILY for HYPERTENSION, TAB 12/16/18 Multivitamin (MULTI-VITAMIN DAILY) 1 Each Tablet, 1 TAB PO DAILY for supplement for 30 Days, #30 TAB 0 Refills 12/16/18 Warfarin Sodium (COUMADIN) 4 Mg Tablet, 3.5 MG PO DAILY for DVT hx, #30 TAB 3 Refills 07/21/15 Atorvastatin Calcium (ATORVASTATIN CALCIUM) 20 Mg Tablet, 1 TAB PO DAILY, #30 TAB 5 Refills 07/21/15 Amlodipine Besylate (AMLODIPINE BESYLATE) 10 Mg Tablet, 10 MG PO DAILY, TAB 07/21/15 Febuxostat (ULORIC) 40 Mg Tablet, 1 TAB PO DAILY, #90 TAB 1 Refill 07/21/15 Tolterodine Tartrate (DETROL LA) 4 Mg Cap.er.24h, 1 CAP PO DAILY, #90 CAP 1 Refill 07/21/15 Discontinued Reported Medications Metoprolol Succinate (TOPROL XL) 50 Mg Tab.er.24h, 25 MG PO DAILY for HTN, #30 TAB 5 Refills 07/21/15 LAURA CROOKS MD Jan 01, 2019 10:44
--- NOTE | 2019-01-01 10:50 | PDOC ---
Provider Note Provider Note discharge summary dictated # [id number] LAURA CROOKS MD Jan 01, 2019 10:50
[2019-01-01 11:00] VITALS: BP 143/63
[2019-01-01] MEDS ORDERED: MAGNESIUM SULFATE 2GM 50 ML IV ONE (11:00)
[2019-01-01 11:11] VITALS: BP 142/68
--- NOTE | 2019-01-01 11:11 | DS ---
DATE OF DISCHARGE: 01/01/2019 CONSULTANTS: Dr. Davidson, Dr. Waddell, Dr. Eliud Tate, Dr. Nicole, Dr. Owen, Dr. Rojas, and Dr. Adam. PROCEDURES: She had a left femoral thromboembolectomy and left iliac thromboembolectomy. She had intraoperative retrograde left iliac arteriogram. She had a left common iliac artery angioplasty and stent placed. She had a left femoral artery involving pericardial patch angioplasty. FINAL DIAGNOSES: 1. Partial small-bowel obstruction, which resolved. 2. Left lower extremity arterial embolus. 3. Chronic atrial fibrillation. 4. Acute kidney injury, which resolved. 5. Chronic kidney disease stage 3. 6. Hypertension. 7. Hyperlipidemia. 8. Chronic atrial fibrillation. 9. Osteoarthritis, left knee, treated with a steroid injection. 10. Chronic gout. 11. History of a left nephrectomy. 12. Hypomagnesemia. HOSPITAL COURSE: The patient is an 83-year-old morbidly obese female with history of chronic atrial fibrillation, on Coumadin with hypertension, hyperlipidemia, chronic gout, history of a left nephrectomy for kidney stone disease in the past, chronic kidney disease stage 3, noted the onset of epigastric abdominal pain and generalized abdominal pain with some back pain, nausea, and vomiting. She was admitted to the hospital where she had a CAT scan of her abdomen and pelvis, which showed some dilatation of small bowel loops consistent with a partial small-bowel obstruction, treated with NG tube, n.p.o. and IV fluids, seen by Dr. Rojas, the surgeon, and consultation, Dr. Nicole for GI. She was expected to have surgery as her small bowel dilatation continued. However, after NG tube was placed with good suction, there was a small-bowel obstruction, eventually it was resolving. Her Coumadin had to be held during she was n.p.o. and she was anticipated she was going to have surgery at any time, any day. She developed onset of severe pain behind her left knee and had a venous Doppler, which was negative and arterial Doppler showed no flow in the left lower extremity. She was seen by Dr. Davidson and underwent an angiogram, left lower extremity and had no flow into the left popliteal area and left upper leg. She underwent a surgical procedure immediately. She underwent a left femoral thromboembolectomy and left iliac artery thromboembolectomy. She had a left common iliac artery angioplasty and the left femoral artery bovine pericardial patch angioplasty. She tolerated the procedure well with excellent pulses in her foot and did quite well. She was started on IV heparin drip and Coumadin eventually was resumed and she can take p.o. and IV heparin drip will be discontinued today. Her INR is finally in the therapeutic range between 2 and 3, it is 2.3 today, it was 1.9 yesterday. She was eating and drinking well, advanced to regular food. Denied any abdominal pain, nausea, or vomiting and she had regular bowel movements and she did not require any surgery. The NG tube was removed. IV fluids were discontinued. She did have an echocardiogram and she was here and it showed a left ventricular ejection fraction of 55-60% with the left atrium severely dilated with mild aortic regurgitation. She will be dismissed to home with home health and will have home physical therapy and occupational therapy and a registered nurse. She was told to follow up with Dr. Cedeno in the office next week and the next protime INR will be done on 01/03 and she usually has it done once a week at home and she will be dismissed on Plavix 75 mg every day, metoprolol succinate 25 mg every day, Voltaren gel 4 g t.i.d. to the left knee, magnesium oxide 400 mg b.i.d. and she will receive a dose of 2 g of magnesium sulfate IV today as her magnesium level slightly low at 1.6. Her serum creatinine improved to 1.5. She had acute kidney injury, eventually resolved due to dehydration. She will also be dismissed on amlodipine 10 mg every day, losartan 100 mg every day, Detrol LA 4 mg every day, atorvastatin 20 mg every day, Uloric will be 40 mg every day, and Coumadin 3.5 mg every day. She will make an appointment to see Dr. Cedeno in the office next week. LAURA CEDENO MD DR: TRACY/angus JOB#: [id number] / [id number]
--- NOTE | 2019-01-01 11:54 | PDOC ---
SUBJECTIVE ROS Follow-up for chronic kidney disease Patient denies any diarrhea. Does not appear to be eating well because she does not like hospital food. OBJECTIVE Vital Signs Vital Signs Date Time Temp Pulse Resp B/P (MAP) Pulse Ox O2 Delivery O2 Flow Rate FiO2 01/01/19 11:11 70 142/68 01/01/19 11:00 97.8 18 98 Room Air 97.8 I & 0 Intake and Output 01/01/19 07:00 Intake Total 1230 ml Balance 1230 ml Intake Oral 1230 ml # Voids 5 # Bowel Movements 2 PHYSICAL EXAM Physical Exam General Appearance:obese -[place] female Awake: Alert Oriented x 3 Neck: No JVD or JVP Chest: CTA Dixon Heart: S1 S2 Abdomen - Soft NTND Extremities - No Edema DIAGNOSIS/ASSESSMENT Assessment & Plan CKD STAGE 3b WITH CR CL OF 30 EARLIER THIS YEAR-CR AT 1-5 to 1.7 NOW WHICH IS HER BASELINE SOLITARY KIDNEY WITH HX OF LEFT NEPHRECTOMY Patient claims she has follow-up with Dr. Cavanaugh coming up soon. COMMENT/RELEVANT DATA Meds Current Medications Medications (Trade) Dose Ordered Sig/Nimco Start Time Stop Time Status Last Admin Dose Admin Acetaminophen (Tylenol Supp) 650 mg PRN Q6HRS PRN 12/17/18 10:00 12/25/18 10:27 DC Acetaminophen (Tylenol) 650 mg PRN Q6HRS PRN 12/25/18 10:30 Acetaminophen/ Hydrocodone Bitart (Lortab 5/325) 1 tab PRN Q4HRS PRN 12/25/18 10:45 Amlodipine Besylate (Norvasc) 5 mg STK-MED ONCE 12/26/18 16:08 12/26/18 16:09 DC Amoxicillin/ Clavulanate Potassium (Augmentin 875/ 125mg) 1 tab BID 12/26/18 09:00 12/29/18 12:00 DC 12/29/18 08:17 1 TAB Atorvastatin Calcium (Lipitor) 20 mg QHS 12/25/18 21:00 12/31/18 21:08 20 MG Bupivacaine HCl (Sensorcaine-Mpf 0.25%) 10 ml 1X ONCE 12/21/18 12:00 12/21/18 12:01 DC 12/21/18 12:00 10 ML Bupivacaine HCl/ Epinephrine Bitart (Sensorcain-Epi 0.5%-1:650222 Mpf) 30 ml 1X ONCE 12/19/18 06:00 12/19/18 06:01 DC 12/19/18 06:00 30 ML Cefazolin Sodium 1 gm/Sodium Chloride 500 ml @ 500 mls/hr 1X ONCE 12/23/18 07:30 12/23/18 08:29 DC 12/23/18 08:33 Ceftriaxone Sodium (Rocephin) 1 gm Q24H 12/18/18 11:00 12/22/18 10:07 DC 12/21/18 12:42 1 GM Clonidine HCl (Catapres) 0.1 mg 1X ONCE 12/16/18 14:15 12/16/18 14:16 DC 12/16/18 15:12 0.1 MG Clopidogrel Bisulfate (Plavix) 75 mg DAILYWBKFT 12/26/18 08:00 01/01/19 08:18 75 MG Dexamethasone Sodium Phosphate (Decadron) 4 mg STK-MED ONCE 12/23/18 09:06 12/23/18 09:06 DC Dextrose/Sodium Chloride 1,000 ml @ 125 mls/hr Q8H 12/21/18 11:15 12/23/18 11:59 DC 12/23/18 03:30 125 MLS/HR Diclofenac Sodium (Voltaren) 1 marilyn QID 12/21/18 13:00 01/01/19 08:19 1 MARILYN Enoxaparin Sodium (Lovenox 100mg Syringe) 100 mg DAILY 12/17/18 10:30 12/19/18 09:14 DC 12/17/18 12:49 100 MG Famotidine (Pepcid Vial) 20 mg STK-MED ONCE 12/23/18 09:06 12/23/18 09:07 DC Febuxostat (Uloric) 40 mg DAILY 12/26/18 09:00 01/01/19 08:19 40 MG Fentanyl Citrate (Fentanyl 2ml Vial) 100 mcg STK-MED ONCE 12/23/18 08:24 12/23/18 08:24 DC Glycopyrrolate (Robinul) 1 mg STK-MED ONCE 12/23/18 09:10 12/23/18 09:11 DC Heparin Sodium (Porcine) (Heparin Sodium) 10,000 unit STK-MED ONCE 12/23/18 09:23 12/23/18 09:23 DC Heparin Sodium (Porcine) 5000 unit/Sodium Chloride 505 ml @ 505 mls/hr 1X ONCE 12/23/18 07:30 12/23/18 08:29 DC Heparin Sodium/ Dextrose 500 ml @ 24 mls/hr CONT PRN PRN 12/23/18 06:30 01/01/19 10:29 DC 12/31/18 15:53 24 MLS/HR Hydralazine HCl (Apresoline Inj) 10 mg PRN Q6HRS PRN 12/17/18 01:00 01/01/19 02:59 10 MG Hydrocortisone Sodium Succinate (Solu-CORTEF) 100 mg 1X ONCE 12/23/18 11:00 12/23/18 11:15 DC Hydromorphone HCl (Dilaudid) 0.5 mg PRN Q10MIN PRN 12/23/18 07:30 12/24/18 07:29 DC Info (Anti-Coagulation Monitoring By Pharmacy) 1 each PRN DAILY PRN 12/17/18 10:15 01/01/19 10:34 DC 12/30/18 08:13 1 EACH Insulin Human Lispro (HumaLOG) 0-6 UNITS BG 300-399... Q6HRS 12/17/18 12:00 12/17/18 10:24 DC Iohexol (Omnipaque 300 Mg/ml) 50 ml STK-MED ONCE 12/23/18 09:28 12/23/18 09:28 DC 12/23/18 08:33 50 ML Labetalol HCl (Normodyne Iv Push) 5 mg PRN Q10MIN PRN 12/23/18 11:30 12/25/18 10:27 DC 12/23/18 11:24 5 MG Lactobacillus Rhamnosus (Culturelle) 1 cap BID 12/26/18 12:00 01/01/19 08:18 1 CAP Lidocaine HCl (Lidocaine Pf 2% Vial) 5 ml STK-MED ONCE 12/23/18 06:28 12/23/18 06:28 DC Lidocaine HCl (Xylocaine-Mpf 1% 2ml Vial) 2 ml PRN 1X PRN 12/23/18 07:30 12/24/18 07:29 DC Lidocaine HCl 16 ml/Sodium Bicarbonate 4 meq/ Miscellaneous 20 ml @ 20 mls/hr 1X ONCE 12/23/18 07:30 12/23/18 08:29 DC 12/23/18 08:33 Losartan Potassium (Cozaar) 100 mg DAILY 01/02/19 09:00 Magnesium Oxide (Magnesium Oxide) 400 mg TID 12/29/18 09:00 01/01/19 08:17 400 MG Magnesium Sulfate 50 ml @ 25 mls/hr 1X ONCE 01/01/19 11:00 01/01/19 12:59 01/01/19 11:11 25 MLS/HR Methylprednisolone Acetate (DEPO-Medrol 40MG VIAL) 40 mg 1X ONCE 12/21/18 12:00 12/21/18 12:01 DC 12/21/18 12:00 40 MG Metoprolol Succinate (Toprol Xl) 25 mg DAILY 12/25/18 11:00 01/01/19 08:19 25 MG Midazolam HCl (Versed) 2 mg STK-MED ONCE 12/20/18 11:17 12/20/18 11:18 DC Morphine Sulfate (Morphine Sulfate) 1 mg PRN Q10MIN PRN 12/23/18 07:30 12/24/18 07:29 DC Neostigmine Methylsulfate (Bloxiverz) 10 mg STK-MED ONCE 12/20/18 11:16 12/20/18 11:17 DC Neostigmine Methylsulfate (Neostigmine Methylsulfate) 5 mg STK-MED ONCE 12/23/18 09:10 12/23/18 09:10 DC Ondansetron HCl (Zofran) 4 mg STK-MED ONCE 12/23/18 09:06 12/23/18 09:06 DC Pantoprazole Sodium (PROTONIX VIAL for IV PUSH) 40 mg DAILYAC 12/17/18 10:30 12/25/18 10:27 DC 12/25/18 06:23 40 MG Pantoprazole Sodium (Protonix) 40 mg DAILYAC 12/26/18 11:00 01/01/19 08:19 40 MG Phenylephrine HCl (Cheko-Synephrine Inj) 10 mg STK-MED ONCE 12/23/18 08:48 12/23/18 08:48 DC Phytonadione 10 mg/Dextrose 51 ml @ 102 mls/hr 1X ONCE 12/19/18 09:15 12/19/18 09:44 DC 10/22/19 10:37 102 MLS/HR Piperacillin Sod/ Tazobactam Sod 3.375 gm/Sodium Chloride 50 ml @ 100 mls/hr Q6HRS 12/22/18 12:00 12/26/18 08:41 DC 12/26/18 05:37 100 MLS/HR Potassium Chloride/Dextrose/ Sod Cl 1,000 ml @ 125 mls/hr Q8H 12/24/18 10:30 12/25/18 10:27 DC 12/25/18 06:44 125 MLS/HR Potassium Chloride (Klor-Con) 20 meq 1X ONCE 12/27/18 10:30 12/27/18 10:31 DC 12/27/18 13:13 20 MEQ Prochlorperazine Edisylate (Compazine) 5 mg PACU PRN PRN 12/23/18 07:30 12/24/18 07:29 DC Propofol 20 ml @ As Directed STK-MED ONCE 12/23/18 06:28 12/23/18 06:28 DC Ringer's Solution 1,000 ml @ 30 mls/hr Q24H 12/23/18 07:21 12/23/18 19:20 DC Rocuronium [place] (Zemuron) 50 mg STK-MED ONCE 12/23/18 06:28 12/23/18 06:28 DC Sevoflurane (Ultane) 90 ml STK-MED ONCE 12/23/18 09:44 12/23/18 09:44 DC Sodium Chloride 1,000 ml @ 60 mls/hr [id number] 12/25/18 10:30 12/27/18 19:41 DC 12/27/18 09:49 60 MLS/HR Succinylcholine Chloride (Anectine) 200 mg STK-MED ONCE 12/23/18 07:45 12/23/18 07:46 DC Throat Lozenges (Cepacol Sore Throat Lozenge) 1 viridiana PRN Q2HRS PRN 12/31/18 09:30 12/31/18 11:54 1 VIRIDIANA Warfarin Sodium (Coumadin Per Pharmacy) 1 each PRN DAILY PRN 12/26/18 08:00 12/31/18 11:14 1 EACH Warfarin Sodium (Coumadin) 1 mg DAILY16 01/01/19 16:00 Lab Laboratory Tests Test 01/01/19 06:15 Prothrombin Time 25.0 SEC (11.7-14.0) Prothromb Time International Ratio 2.3 (0.8-1.1) Heparin Anti-Xa Act, Unfractionated 0.69 IU/mL (0.30-0.70) Sodium Level 144 mmol/L (136-145) Potassium Level 4.0 mmol/L (3.5-5.1) Chloride Level 110 mmol/L (98-107) Carbon Dioxide Level 25 mmol/L (21-32) Anion Gap 9 (6-14) Blood Urea Nitrogen 18 mg/dL (7-20) Creatinine 1.5 mg/dL (0.6-1.0) Estimated GFR (Cockcroft-Gault) 40.3 Glucose Level 94 mg/dL (70-99) Calcium Level 8.5 mg/dL (8.5-10.1) Magnesium Level 1.6 mg/dL (1.8-2.4) Results All relevant outside records, renal labs, imaging studies, telemetry/EKG's were reviewed. MEHRAN SAWYER MD Jan 01, 2019 11:54
[2019-01-01] MEDS ORDERED: LOSARTAN POTASSIUM 50 MG TABLET. PO ONE (12:00)
[2019-01-01] MEDS ORDERED: MAGNESIUM SULFATE 2GM 50 ML IV PRN (12:00)
--- NOTE | 2019-01-01 12:36 | NUR ---
SS following up with discharge planning. Discharge orders received for home healthcare. SS phoned and faxed referral and discharge orders to [facility], ; fax [phone]. Pt's RN notified.
[2019-01-01] MEDS ORDERED: WARFARIN 2.5 MG TABLET. PO SCH (16:00)
[2019-01-01] MEDS ORDERED: WARFARIN 1 MG TABLET. PO SCH (16:00)
[2019-01-01] MEDS ORDERED: WARFARIN 3 MG TABLET. PO SCH (16:00)
--- NOTE | 2019-01-01 16:10 | NUR ---
Discharge Note: LEYDI TRUJILLO [address] [place] [address] Discharge instructions and discharge home medications reviewed with Patient and a copy given. All questions have been answered and understanding verbalized. The following instructions and handouts were given: Clopidogrel and SBO Discontinued IV lines Patient discharged to home with self care via wheelchair
[2019-01-02] MEDS ORDERED: LOSARTAN POTASSIUM 50 MG TABLET. PO SCH (09:00)
== END 2019-01-01 15:25 | disposition home health service (06) | DRG 356 ==
LOC: ER 08:44 → 4 NORTH 14:23 → 2 NORTH 12-17 13:40 → 5 SOUTH 12-19 20:02 → 2 NORTH 12-23 12:23
PROVIDERS: ADMIT Internal Medicine; ATTEND Internal Medicine
PROC: 047D3DZ Dilation of Left Common Iliac Artery with Intraluminal Device, Percutaneous Approach (ICD-10-PCS; 2018-12-23)
PROC: 047L3ZZ Dilation of Left Femoral Artery, Percutaneous Approach (ICD-10-PCS; 2018-12-23)
PROC: 04CD3ZZ Extirpation of Matter from Left Common Iliac Artery, Percutaneous Approach (ICD-10-PCS; 2018-12-23)
PROC: 04UL3KZ Supplement Left Femoral Artery with Nonautologous Tissue Substitute, Percutaneous Approach (ICD-10-PCS; 2018-12-23)
PROC: B41G1ZZ Fluoroscopy of Left Lower Extremity Arteries using Low Osmolar Contrast (ICD-10-PCS; 2018-12-23)
PROC: 04CL3ZZ Extirpation of Matter from Left Femoral Artery, Percutaneous Approach (ICD-10-PCS; principal; 2018-12-23 07:00)
DX: K56.600 Partial intestinal obstruction, unspecified as to cause (principal); N17.0 Acute kidney failure with tubular necrosis; I74.5 Embolism and thrombosis of iliac artery; E87.1 Hypo-osmolality and hyponatremia; I48.20 Chronic atrial fibrillation, unspecified; J98.11 Atelectasis; N39.0 Urinary tract infection, site not specified; I74.3 Embolism and thrombosis of arteries of the lower extremities; K56.7 Ileus, unspecified; I99.8 Other disorder of circulatory system; G89.29 Other chronic pain; D69.6 Thrombocytopenia, unspecified; E66.01 Morbid (severe) obesity due to excess calories; E78.5 Hyperlipidemia, unspecified; E83.42 Hypomagnesemia; E87.6 Hypokalemia; G62.9 Polyneuropathy, unspecified; I12.9 Hypertensive chronic kidney disease with stage 1 through stage 4 chronic kidney disease, or unspecified chronic kidney disease; I27.20 Pulmonary hypertension, unspecified; I70.8 Atherosclerosis of other arteries; K43.9 Ventral hernia without obstruction or gangrene; M17.12 Unilateral primary osteoarthritis, left knee; N18.3 Chronic kidney disease, stage 3 (moderate); N20.0 Calculus of kidney; N32.81 Overactive bladder; R79.1 Abnormal coagulation profile; Z53.9 Procedure and treatment not carried out, unspecified reason; Z79.01 Long term (current) use of anticoagulants; Z79.02 Long term (current) use of antithrombotics/antiplatelets; Z79.899 Other long term (current) drug therapy; Z86.73 Personal history of transient ischemic attack (TIA), and cerebral infarction without residual deficits; Z87.19 Personal history of other diseases of the digestive system; Z87.442 Personal history of urinary calculi; Z87.891 Personal history of nicotine dependence; Z90.5 Acquired absence of kidney; Z90.710 Acquired absence of both cervix and uterus; Z68.39 Body mass index [BMI] 39.0-39.9, adult; Z88.8 Allergy status to other drugs, medicaments and biological substances; M1A.9XX0 Chronic gout, unspecified, without tophus (tophi)
CPT/HCPCS: 36415; 73565; 74018; 74022; 74176; 76000; 76705; 76775; 80048; 80053; 80061; 81001; 82150; 82962; 83690; 83735; 85007; 85025; 85027; 85520; 85610; 85730; 86850; 86900; 86901; 87086; 93005; 93306; 93926; 93971; 96361; 96374; 96375; A7015; C1757; C1769; C1894; C9113; G0238; J0330; J0360; J0696; J1030; J1100; J1644; J1650; J1720; J1815; J2001; J2250; J2405; J2543; J2704; J2710; J3010; J3430; J3475; J3490; J7030; Q9967; 97110; 97116; 97530; 97535; 99285-25; G0378

== ENCOUNTER → 2019-04-17 | Outpatient (CLI) | payer MEDICARE, BC ==
[~2019-04-17] MED LIST changes: +CLOP75TA PO; +DICL100G18 TP; +LOSA100T14 PO; +MAGN400T22 PO; +METO-239 PO; +MULT-246 PO; +ONDA4TAB12 PO
--- NOTE | 2019-04-19 13:36 | CARD ---
MR#: [id number] Date of Study: 04/17/2019 Ordering Physician: FALGUNI ZHAO, Referring Physician: FALGUNI ZHAO Tech: Lauri Valencia [facility] APPROVED REPORT EXAM: Two-dimensional and M-mode echocardiogram with Doppler and color Doppler. Other Information Quality : AverageHR: 64bpm Rhythm : Atrial Fibrillation INDICATION Atrial Fibrillation aortic insufficiency 2D DIMENSIONS Left Atrium(2D)5.4 (1.6-4.0cm)IVSd1.6 (0.7-1.1cm) Aortic Root(2D)3.0 (2.0-3.7cm)LVDd4.1 (3.9-5.9cm) LVOT Diameter2.3 (1.8-2.4cm)PWd1.4 (0.7-1.1cm) LVDs2.7 (2.5-4.0cm)FS (%) 33.6 % SV47.4 ml Aortic Valve AoV Peak Dann.161.3cm/sAoV VTI32.8cm AO Peak GR.10.4mmHgLVOT Peak Dann.61.9cm/s AO Mean GR.5mmHgAVA (VMAX)1.55cm2 AI P 1/2 [id number] Pulmonary Valve PV Peak Lsxoftyi44.2cm/s Tricuspid Valve TR P. Iwmellmg488rl/sRAP ZVPEFZFQ0qeTl TR Peak Gr.51ueDwODHP52wvZt LEFT VENTRICLE The left ventricle is normal size. There is mild concentric left ventricular hypertrophy. The left ve ntricular systolic function is normal . The ejection fraction is 55-60%. There is normal LV segmental wall motion. Unable to assess diastolic function due to atrial fibrillation. RIGHT VENTRICLE The right ventricle is borderline dilated. There is normal right ventricular wall thickness. The righ t ventricular systolic function is normal. ATRIA The left atrium is moderately dilated. The right atrium is moderately dilated. The interatrial septum is intact with no evidence for an atrial septal defect or patent foramen ovale as noted on 2-D or Do ppler imaging. AORTIC VALVE The aortic valve is mildly to moderately sclerotic. Doppler and Color Flow revealed mild aortic regur gitation. There is no aortic valvular stenosis. There is no aortic valvular vegetation. MITRAL VALVE The mitral valve is normal in structure and function. There is no evidence of mitral valve prolapse. There is no mitral valve stenosis. Doppler and Color-flow revealed mild to moderate mitral regurgitat ion. TRICUSPID VALVE The tricuspid valve is normal in structure and function. Doppler and Color Flow revealed moderate tri cuspid regurgitation with PAP of 54 mmHg. There is no tricuspid valve prolapse or vegetation. There i s no tricuspid valve stenosis. GREAT VESSELS The aortic root is normal in size. The ascending aorta is normal in size. The pulmonary artery is nor mal. The IVC is normal in size and collapses >50% with inspiration. PERICARDIAL EFFUSION There is no pleural effusion. The pericardium appears normal. Critical Notification Critical Value: No <Conclusion> The left ventricle is normal size. The left ventricular systolic function is normal . The ejection fraction is 55-60%. There is mild concentric left ventricular hypertrophy. Doppler and Color Flow revealed mild aortic regurgitation. There is no aortic valvular stenosis. Doppler and Color-flow revealed mild to moderate mitral regurgitation. Doppler and Color Flow revealed moderate tricuspid regurgitation with PAP of 54 mmHg. Signed by : Terell Davies MD Electronically Approved : 04/17/2019 16:01:09
== END | disposition home or self-care (01) ==
LOC: ECHO 13:50
PROVIDERS: ATTEND Internal Medicine Cardiovascular Disease
DX: I08.3 Combined rheumatic disorders of mitral, aortic and tricuspid valves (principal); I48.91 Unspecified atrial fibrillation
CPT/HCPCS: 93306

== ENCOUNTER → 2020-08-28 | Outpatient (CLI) | payer MEDICARE, BC ==
[~2020-08-28] MED LIST changes: +AMLO-187 PO; -AMLO10TA8 PO; -DICL100G18 TP; +DICL100G54 TP; +REGADENOSON 0.4 MG/5 ML DISP.SYRIN. IV ONE
--- NOTE | 2020-08-28 14:43 | RAD ---
MR#: [id number] Date of Study: 08/28/2020 Ordering Physician: FALGUNI ZHAO, Referring Physician: DOE ARRINGTON Tech: FRANK Palomo APPROVED REPORT Test Type: Pharmacological Stress Nurse/Tech: Naye Colorado RN Test Indications: Valvular Disease Cardiac History: HTN, See EMR. Medications: Coumadin, See EMR. Medical History: X-Smoker=Quit 30yrs ago, CVA x3, See EMR. Resting ECG: A-Fib Resting Heart Rate: 75 bpm Resting Blood Pressure: 210/108mmHg Pretest Chest Pain: No chest pain Nurse/Tech Notes Lungs CTA, Heart tones irregular. Consent: The procedure was explained to the patient in lay terms. Informed consent was witnessed. Munir eout was entered into CO-Value. History and Stress Test performed by RT Kami (R) (N) Pharm. Details Pharmacologic stress testing was performed using 0.4mg per 5ml of regadenoson given intravenously ove r 7-10 seconds. Stress Symptoms Dyspnea POST EXERCISE Reason for Termination: Infusion complete Max HR: 110 bpm Max Blood Pressure: 236/80mmHg Blood Pressure response to exercise: Normal blood pressure response during stress. Heart Rate response to exercise: WNL Chest Pain: No. Arrhythmia: Yes. Frequent PVCs ST Change: No. INTERPRETATION Stress EKG Conclusion: Baseline EKG showed atrial fibrillation with inferolateral ST depressions. No ndiagnostic changes at peak stress. No other arrhythmias. Imaging Protocol IMAGE PROTOCOL: Rest Tc-99m/stress Tc-99m 1 day Rest: Stress: Viability: Radiopharm.Tc99m WpuuivgtcZs69h Sestamibi Ejcn26lPo 30mCi Duration 15min. 10min. Img Date 08/28/2020 08/28/2020 Inj-Img Trna44egq. 60min. Rest Admin Site:IV - Left ForearmAdministrator:FRANK Palomo Stress Admin Site: IV - Left ForearmAdministrator: SCOTT Coleman, ARRT (R)(N) STRESS DATA End Diast. Vol.63.0mlAv. Heart Rate75.0bpm End Syst. Vol.26.0mlCO Index BSA0.0L/min Myocardial Rchd335.0gEject. Gfnvnjxw79.0% Stress Rates Pk. Fill Rate3.26EDV/secLVtime Pk. Fill 146.54msec Pk. Empty Rate3.46ESV/secLVtime Pk. Rtxse558.01msec 1/3 Pk. Fill1.35EDV/sec Stress Scores Regional WT2.00Summed WT8.00 Regional WM0.00Summed WM10.00 Study quality was good. Left Ventricular size was Normal at Rest and Stress. Lung uptake was . Left Ventricular ejection fraction is 54%. The rest and stress images show normal perfusion, normal contraction and thickening. LV Perf. Quant 17 Seg. SSS5.00 17 Seg. SRS0.00 17 Seg. SDS5.00 Stress Defect Extent (% LAD)0.00Rest Defect Extent (% LAD)0.00Rev. Defect Extent (% LAD)0.00 Stress Defect Extent (% LCX) 36.30Rest Defect Extent (% LCX)0.00Rev. Defect Extent (% LCX)35.00 Stress Defect Extent (% RCA)0.00Rest Defect Extent (% RCA)0.00Rev. Defect Extent (% RCA)0.00 Stress Defect Extent (% CAMILO)7.60Rest Defect Extent (% CAMILO)0.00Rev. Defect Extent (% CAMILO)7.40 Conclusion 1. Regadenoson cardioisotope stress test did not show any evidence of ischemia or infarct. 2. Normal left ventricular systolic function with ejection fraction calculated at 54%. 3. Low risk for cardiac events. Signed by : Falguni Zhao, Electronically Approved : 08/28/2020 14:42:50
--- NOTE | 2020-08-28 14:56 | CARD ---
MR#: [id number] Date of Study: 08/28/2020 Ordering Physician: FALGUNI COWAN, Referring Physician: FALGUNI COWAN, Tech: Katlin Al [facility] APPROVED REPORT EXAM: Two-dimensional and M-mode echocardiogram with Doppler and color Doppler. Other Information Quality : AverageHR: 60bpm INDICATION Vavular Heart Disease RISK FACTORS Hypertension 2D DIMENSIONS RVDd3.4 (2.9-3.5cm)Left Atrium(2D)4.7 (1.6-4.0cm) IVSd1.4 (0.7-1.1cm)Aortic Root(2D)3.0 (2.0-3.7cm) LVDd4.8 (3.9-5.9cm)LVOT Diameter2.1 (1.8-2.4cm) PWd1.2 (0.7-1.1cm)LVDs2.9 (2.5-4.0cm) FS (%) 40.1 %SV75.4 ml LVEF(%)60.7 (>50%) Aortic Valve AoV Peak Dann.160.5cm/sAoV VTI32.4cm AO Peak GR.10.3mmHgLVOT Peak Dann.68.4cm/s LVOT VTI 15.72cmAO Mean GR.6mmHg KAL (VMAX)1.72ez9JBY (VTI)1.61cm2 AI P 1/2 Bses504gh Mitral Valve MV E Ygxdnmrl54.5cm/sMV DECEL KREA193za MV A Hslkoknb40.4cm/sMV ABB08hc E/A Ratio1.9MVA (PHT)6.02cm2 TDI E/Lateral E'7.5E/Medial E'7.6 Pulmonary Valve PV Peak Whlymtqi67.2cm/sPV Peak Grad.2mmHg Tricuspid Valve TR P. Apxqrzbt321hz/sRAP VUQULZTS9wxVw TR Peak Gr.25jzFhMZHE99wuBc LEFT VENTRICLE The left ventricle is normal size. There is mild to moderate concentric left ventricular hypertrophy. The left ventricular systolic function is normal. The Ejection Fraction is 55-60%. There is normal L V segmental wall motion. RIGHT VENTRICLE The right ventricle is normal size. There is normal right ventricular wall thickness. The right ventr icular systolic function is normal. ATRIA The left atrium is moderately dilated. The right atrium is moderately dilated. The interatrial septum is intact with no evidence for an atrial septal defect or patent foramen ovale as noted on 2-D or Do ppler imaging. AORTIC VALVE The aortic valve is calcified and displays decreased opening. Doppler and Color Flow revealed mild ao rtic regurgitation. There is no significant aortic valvular stenosis. Calculated aortic valve area is 1.67 cm2 with maximum pressure gradient of 13 mmHg and mean pressure gradient of 6 mmHg. MITRAL VALVE The mitral valve is normal in structure and function. There is no evidence of mitral valve prolapse. There is no mitral valve stenosis. Doppler and Color-flow revealed mild mitral regurgitation. TRICUSPID VALVE The tricuspid valve is normal in structure and function. Doppler and Color Flow revealed moderate tri cuspid regurgitation with an estimated PAP of 57 mmHg. There is no tricuspid valve stenosis. PULMONIC VALVE The pulmonary valve is normal in structure and function. Doppler and Color Flow revealed trace pulmon ic valvular regurgitation. GREAT VESSELS The aortic root is normal in size. The IVC is normal in size and collapses >50% with inspiration. PERICARDIAL EFFUSION There is no evidence of significant pericardial effusion. Critical Notification Critical Value: No <Conclusion> The left ventricular systolic function is normal. The Ejection Fraction is 55-60%. There is normal LV segmental wall motion. The left atrium is moderately dilated. Mild aortic regurgitation. Mild mitral regurgitation. Moderate tricuspid regurgitation with an estimated PAP of 57 mmHg. There is no evidence of significant pericardial effusion. Signed by : Falguni Cowan, Electronically Approved : 08/28/2020 14:55:58
== END ==
LOC: NM 09:14
PROVIDERS: ATTEND Internal Medicine Cardiovascular Disease
DX: I08.3 Combined rheumatic disorders of mitral, aortic and tricuspid valves (principal)
CPT/HCPCS: 78452; 93017; 93306; A9500; J2785